=== PATIENT | female | born 1960 | race Caucasian/White ===

== ENCOUNTER 2022-03-02 19:33 | Inpatient (IN) | payer OTHER, SELFPAY ==
[2022-03-02] VITALS (8 sets, daily range): BP systolic 108–139; BP diastolic 60–88; PULSE 65–68; RESP 12–26; TEMP 36.5; O2SAT 90–95
--- NOTE | 2022-03-02 20:12 | CRLHL7_ITS ---
For Patients: As a result of the Cures Act, medical imaging exams and procedure reports are released immediately into your electronic medical record. You may view this report before your referring provider. If you have questions, please contact your health care provider. INDICATION: Shortness of breath. Patient uncooperative. COMPARISON: Portable chest from 01/13/2022. FINDINGS: PA and lateral views of the chest were obtained. The lungs remain clear. No focal or diffuse infiltrates are present. The heart remains mildly enlarged. Again seen are sternal wires from median sternotomy. The mediastinum is otherwise normal in appearance. Again seen is a metallic plate and anchoring screws from anterior cervical fusion. Again seen is an old, healed fracture of the posterior-lateral left 7th rib. IMPRESSION: No active disease seen in the chest. Heart remains mildly enlarged. Dictated by Aston Mart MD @ 03/02/2022 9:12:41 PM (Electronically Signed)
--- NOTE | 2022-03-02 20:16 | ED.GENADULT ---
HPI - General Adult General Chief complaint: Shortness of Breath/Dyspnea Stated complaint: Short of Breath Time Seen by Provider: 03/02/22 19:55 History of Present Illness HPI narrative: Patient is a 62-year-old female coming in today stating that she does not feel good. Patient has a very complex medical history That include COPD, depression and anxiety with panic attacks, chronic pain, coronary artery disease with a history of a cath in 2019 and 2021 as well as a history of CABG, hyperlipidemia, hypothyroidism, type 2 diabetes, PTSD.She states that she had a shoulder injection yesterday and now she has increased shoulder pain. She denies any fevers or chills. I did review her ER triage note prior to talking to her, and stated that she was here for shortness of breath. When I mentioned this to her she says 0h yeah and that too. she states that she is coughing, however this is chronic for her and is not new or unchanged. She states that she did feel better after an albuterol inhaler. She states that she is on chronic oxygen at home. She states that she does use a CPAP at night. She denies any nausea or vomiting. States that her appetite has been slightly less than normal. She denies any abdominal discomfort or chest pain. She denies any diarrhea or urinary symptoms such as increased urgency, dysuria or frequency. Patient states that she does live alone. This all started yesterday. She denies a sore throat. She denies difficulty breathing when lying down. She denies increased swelling of her extremities. Related Data Home Medications Medication Instructions Recorded Confirmed Home Oxygen 03/02/22 03/02/22 albuterol sulfate 90 mcg/actuation 2 puff INHALATION .Q4H PRN 03/02/22 03/02/22 aerosol inhaler alprazolam 0.5 mg tablet (Xanax) 0.5 mg PO BID 03/02/22 03/02/22 aspirin 81 mg chewable tablet 81 mg PO DAILY 03/02/22 03/02/22 budesonide-formoterol HFA 160 2 inh INHALATION BID 03/02/22 03/02/22 mcg-4.5 mcg/actuation aerosol inhaler buprenorphine HCl 2 mg sublingual 2 mg SUBLINGUAL BID 03/02/22 03/02/22 tablet clopidogrel 75 mg tablet (Plavix) 75 mg PO DAILY 03/02/22 03/02/22 escitalopram oxalate 10 mg tablet 10 mg PO DAILY 03/02/22 03/02/22 escitalopram oxalate 20 mg tablet 20 mg PO DAILY 03/02/22 03/02/22 esomeprazole magnesium 40 mg 40 mg PO DAILY 03/02/22 03/02/22 capsule,delayed release (Nexium) ezetimibe 10 mg tablet (Zetia) 10 mg PO DAILY 03/02/22 03/02/22 glimepiride 1 mg tablet 2 mg PO BID 03/02/22 03/02/22 ipratropium 0.5 mg-albuterol 3 mg 3 ml INHALATION Q6-8H PRN 03/02/22 03/02/22 (2.5 mg base)/3 mL nebulization soln isosorbide mononitrate 60 mg 120 mg PO DAILY 03/02/22 03/02/22 tablet,extended release 24 hr levothyroxine 50 mcg tablet 50 mcg PO DAILY 03/02/22 03/02/22 (Synthroid) magnesium oxide 400 mg PO DAILY 03/02/22 03/02/22 meclizine 25 mg tablet 25 mg PO .TID PRN 03/02/22 03/02/22 methocarbamol 500 mg tablet 1,000 mg PO .QHS 03/02/22 03/02/22 metoprolol succinate 50 mg 50 mg PO DAILY 03/02/22 03/02/22 tablet,extended release 24 hr mirtazapine 15 mg tablet 7.5 mg PO .QHS 03/02/22 03/02/22 morphine 15 mg tablet,extended 15 mg PO PRN 03/02/22 03/02/22 release naloxone 4 mg/actuation nasal spray 4 mg INTRANASAL Q2-3M PRN 03/02/22 03/02/22 nitroglycerin 0.4 mg sublingual 0.4 mg SUBLINGUAL Q5M 03/02/22 03/02/22 tablet (Nitrostat) ondansetron HCl 4 mg tablet 4 mg PO Q6-8H PRN 03/02/22 03/02/22 oxycodone-acetaminophen 7.5 mg-325 1 tab PO TID 03/02/22 03/02/22 mg tablet potassium chloride 20 mEq 40 meq PO DAILY 03/02/22 03/02/22 tablet,extended release(part/cryst) prazosin 2 mg capsule 4 mg PO .QHS 03/02/22 03/02/22 rosuvastatin 20 mg tablet (Crestor) 20 mg PO DAILY 03/02/22 03/02/22 sennosides 8.6 mg-docusate sodium 1 tab-cap PO BID 03/02/22 03/02/22 50 mg tablet sertraline 100 mg tablet 50 mg PO DAILY 03/02/22 03/02/22 sodium chloride 0.65 % nasal spray 2 spray INTRANASAL Q2H PRN 03/02/22 03/02/22 aerosol (Nasal [place] (sodium chloride)) tiotropium bromide 18 mcg capsule 1 cap INHALATION DAILY 03/02/22 03/02/22 with inhalation device (Spiriva with HandiHaler) torsemide 20 mg tablet 20 mg PO BID-TID 03/02/22 03/02/22 Previous Rx's Medication Instructions Recorded Lasix 20 mg tablet (furosemide) 10 mg PO QAM #1 tab NS 03/02/22 Allergies Allergy/AdvReac Type Severity Reaction Status Date / Time buprenorphine Allergy Severe respiratory Verified 03/02/22 20:58 distress sumatriptan Allergy Severe Anaphylaxis Verified 03/02/22 20:58 buspirone Allergy Intermediate Rash Verified 03/02/22 20:58 gabapentin Allergy Intermediate gi upset Verified 03/02/22 20:58 niacin Allergy Intermediate Verified 03/02/22 20:58 trazodone Allergy Intermediate Verified 03/02/22 20:58 atorvastatin Allergy Mild myalgia Verified 03/02/22 20:58 codeine Allergy Mild itching Verified 03/02/22 20:58 rizatriptan Allergy Mild Flushing Verified 03/02/22 20:58 Review of Systems Narrative: Entire review of systems was done was negative except for those things mentioned in the HPI. [facility] Medical History (Updated 03/02/22 @ 22:53 by Isabela Stout MD) Acute and chronic respiratory failure ([id number]) Acute on chronic heart failure with preserved ejection fraction Allergic rhinitis due to pollen Anxiety Arthropathy of spinal facet joint Asthma CAD (coronary artery disease) Chest pain Chronic pain syndrome Cluster B personality disorder CO2 retention COPD (chronic obstructive pulmonary disease) Edema GERD (gastroesophageal reflux disease) Graves disease History of nicotine dependence Hyperlipidemia Hypothyroidism Insomnia Leukocytosis Lumbar spinal stenosis Opioid dependence [place] (obstructive sleep apnea) Panic disorder PTSD (post-traumatic stress disorder) Recurrent major depression Refractory migraine Secondary polycythemia Type 2 diabetes mellitus with circulatory disorder, without long-term current use of insulin Surgical History (Updated 03/02/22 @ 20:53 by Sylvia Carlisle RN) Failed CABG (coronary artery bypass graft) H/O heart artery stent Social History Smoking Status: Former smoker What tobacco products do you use: cigarettes Smoking quit date/years: <= 15 years ago Do you use any of these nicotine containing products: None Second hand tobacco smoke exposure: No How often do you have a drink containing alcohol: never How often do you have six or more drinks on one occasion: Never AUDIT-C Alcohol total score: 0 Non-prescribed substance use: denies use Exam Narrative: Exam Narrative: Well-nourished well-developed patient in no acute distress. patient is somewhat disheveled. Alert and oriented. Answers questions appropriately. Flat affect. Thoughts are goal oriented and rational. No tangential or magical thinking noted. HEENT: Normocephalic atraumatic. Pupils are equally round reactive to light. Extraocular muscles are intact. Conjunctivae are moist without any icterus noted. Slightly dry mucous membranes. Posterior pharynx is normal. Neck is soft without any lymphadenopathy or thyromegaly. No masses are appreciated. Cardiovascular: Heart is regular rate and rhythm S1 and S2 are present without any murmurs. Lungs: decreased breath sounds bilaterally. She has end expiratory crackles bilaterally. She has expiratory wheezing bilaterally. has a prolonged expiratory phase. Abdomen: Soft and nontender nondistended with normal bowel sounds. Extremities: Bilateral lower extremities Have 1+ pitting edema. Normal DP and PT pulses. Skin: Well perfused without any obvious rashes. Const: Vital Signs, click to edit/add: Vital Signs - 24 hr 03/02/22 19:35 03/02/22 19:40 03/02/22 20:00 Temperature 97.7 F Pulse Rate [Right Pulse Oximeter] 67 Respiratory Rate 26 H 16 Blood Pressure [Le ft Upper Arm] 108/88 108/88 Pulse Oximetry 95 90 03/02/22 21:00 03/02/22 21:23 Temperature Pulse Rate [Right Pulse Oximeter] 65 Respiratory Rate 16 13 Blood Pressure [Le ft Upper Arm] 126/69 Pulse Oximetry 92 91 Course Course Hospital Course: Patient was feeling better after her DuoNeb. We were able to wean her oxygen down to 2 L nasal cannula where she remained at 90-93%. She continued to have shoulder pain as well as a headache that developed while she was here, she stated that there was nothing really new about the headache she was having. Her lab work did show a slightly elevated white cell count, an elevated BNP, slight hyponatremia and hyperkalemia. Because of this we did go ahead and give her 20 mg of Lasix as she did not appear to be dehydrated and given the increased swelling of her legs did in fact appear to be slightly fluid overloaded. Her vital signs improved with her blood pressure increasing to into the 120s systolic and her respiratory rate came down to 13. Vital Signs Vital signs: Initial Vital Signs Blood Pressure 108/88 03/02/22 19:35 Blood Pressure Mean 94 03/02/22 19:35 Blood Pressure Position Supine 03/02/22 19:35 Vital Signs Blood Pressure 108/88 03/02/22 19:35 Temperature 97.7 F 03/02/22 19:40 Pulse Rate 65 03/02/22 21:00 Respiratory Rate 13 03/02/22 21:23 Blood Pressure 126/69 03/02/22 21:00 Pulse Oximetry 91 03/02/22 21:23 Medical Decision Making Lab Data Labs: Lab Results 03/02/22 03/02/22 03/02/22 Range/Units 20:21 20:34 20:34 WBC 12.75 H (4.50-11.00) K/uL RBC 4.05 (4.00-5.20) m/uL Hgb 12.5 (12.0-16.0) gm/dL Hct 40.1 (33.0-51.0) % MCV 99 (80-100) fL MCH 31 (26-34) pg MCHC 31 L (32-36) gm/dL RDW Coeff of Renetta 13.8 (11.5-15.5) % Plt Count 276 (140-440) K/uL Neut % (Auto) 82.3 H (42.0-72.0) % Lymph % (Auto) 8.4 L (20-44) % [place] % (Auto) 8.1 (0.0-11.0) % Eos % (Auto) 0.1 (0.0-7.0) % Baso % (Auto) 0.2 (0.0-3.0) % Neut # (Auto) 10.50 H (1.7-7.0) K/uL Lymph # (Auto) 1.10 (0.90-2.90) K/uL [place] # (Auto) 1.00 H (0.00-0.90) K/UL Eos # (Auto) 0.00 (0.00-0.50) K/uL Baso # (Auto) 0.00 (0.00-0.30) K/uL Abs Immat Gran (auto) 0.11 (0.00-0.30) K/uL Sodium 130 L (135-149) mmol/L Potassium 5.4 H (3.6-5.1) mmol/L Chloride 90 L (96-114) mmol/L Carbon Dioxide 39 H (20-32) mmol/L BUN 15 (7-30) mg/dL Creatinine 0.6 (0.5-1.5) mg/dL Glucose 278 H (60-115) mg/dL Calcium 9.1 (8.4-10.6) mg/dL Total Bilirubin 0.4 (0.1-1.5) mg/dL Direct Bilirubin 0.4 (0.0-0.5) mg/dL AST 82 H (12-35) U/L ALT 45 H (4-35) U/L Alkaline Phosphatase 114 (40-150) U/L C-Reactive Protein 2.0 H (0.5-1.0) mg/dL NT-Pro-B Natriuret Pep 4050 H (0-125) PG/mL Total Protein 6.9 (6.0-8.3) g/dL Albumin 4.0 (3.3-5.0) g/dL Urine Color (Yellow) Urine Appearance (Clear) Urine pH (5.0-8.5) Ur Specific [place] (1.000-1.030) Urine Protein (Negative) Urine Glucose (UA) (Negative) Urine Ketones (Negative) Urine Blood (Negative) Urine Nitrite (Negative) Urine Bilirubin (Negative) Urine Urobilinogen (0.2-1.0) Ur Leukocyte Esterase (Negative) Urine RBC (0-2) Urine WBC (0-5) Ur Squamous Epith Cells (None-Few) Urine Bacteria (None) POC Troponin I 0.00 L (0.01-0.04) ng/ml 03/02/22 Range/Units 21:32 WBC (4.50-11.00) K/uL RBC (4.00-5.20) m/uL Hgb (12.0-16.0) gm/dL Hct (33.0-51.0) % MCV (80-100) fL MCH (26-34) pg MCHC (32-36) gm/dL RDW Coeff of Renetta (11.5-15.5) % Plt Count (140-440) K/uL Neut % (Auto) (42.0-72.0) % Lymph % (Auto) (20-44) % [place] % (Auto) (0.0-11.0) % Eos % (Auto) (0.0-7.0) % Baso % (Auto) (0.0-3.0) % Neut # (Auto) (1.7-7.0) K/uL Lymph # (Auto) (0.90-2.90) K/uL [place] # (Auto) (0.00-0.90) K/UL Eos # (Auto) (0.00-0.50) K/uL Baso # (Auto) (0.00-0.30) K/uL Abs Immat Gran (auto) (0.00-0.30) K/uL Sodium (135-149) mmol/L Potassium (3.6-5.1) mmol/L Chloride (96-114) mmol/L Carbon Dioxide (20-32) mmol/L BUN (7-30) mg/dL Creatinine (0.5-1.5) mg/dL Glucose (60-115) mg/dL Calcium (8.4-10.6) mg/dL Total Bilirubin (0.1-1.5) mg/dL Direct Bilirubin (0.0-0.5) mg/dL AST (12-35) U/L ALT (4-35) U/L Alkaline Phosphatase (40-150) U/L C-Reactive Protein (0.5-1.0) mg/dL NT-Pro-B Natriuret Pep (0-125) PG/mL Total Protein (6.0-8.3) g/dL Albumin (3.3-5.0) g/dL Urine Color Yellow (Yellow) Urine Appearance Clear (Clear) Urine pH 6.0 (5.0-8.5) Ur Specific [place] 1.010 (1.000-1.030) Urine Protein Negative (Negative) Urine Glucose (UA) 2+ A (Negative) Urine Ketones Negative (Negative) Urine Blood Negative (Negative) Urine Nitrite Negative (Negative) Urine Bilirubin Negative (Negative) Urine Urobilinogen 0.2 (0.2-1.0) Ur Leukocyte Esterase Negative (Negative) Urine RBC 0-2 (0-2) Urine WBC 2-5 (0-5) Ur Squamous Epith Cells Few (None-Few) Urine Bacteria None (None) POC Troponin I (0.01-0.04) ng/ml Imaging Data Chest x-ray: Attestation: I have reviewed the pertinent imaging results. My impression: Normal chest x-ray Radiologist's impression: No acute findings ECG Data Attestation: I personally reviewed and interpreted this ECG as follows: (Normal sinus rhythm) Discharge Plan Discharge Clinical Impression: Chronic pain, Congestive heart failure Condition: Improved Additional Instructions: Take a 1/2 of a Lasix tablet for the next 2 days. Follow-up with your primary care provider this coming week. Return to the ER if you feel increasing shortness of breath, weakness or you develop a fever. Prescriptions: New furosemide [Lasix] 20 mg tablet 10 mg PO QAM Qty: 1 0RF No Action albuterol sulfate 90 mcg/actuation HFA aerosol inhaler 2 puff INHALATION .Q4H PRN 0RF ipratropium-albuterol 0.5 mg-3 mg(2.5 mg base)/3 mL solution for nebulization 3 ml inhalation Q6-8H PRN0RF aspirin 81 mg tablet,chewable 81 mg PO DAILY 0RF naloxone 4 mg/actuation spray,non-aerosol 4 mg intranasal Q2-3M PRN0RF Rx Instructions: spray 1 dose into ONE nostril; alternate nostrils w each dose until help arrives sennosides-docusate sodium 8.6-50 mg tablet 1 tab-cap PO BID 0RF levothyroxine [Synthroid] 50 mcg tablet 50 mcg PO DAILY 0RF rosuvastatin [Crestor] 20 mg tablet 20 mg PO DAILY 0RF oxycodone-acetaminophen 7.5-325 mg tablet 1 tab PO TID 0RF clopidogrel [Plavix] 75 mg tablet 75 mg PO DAILY 0RF budesonide-formoterol 160-4.5 mcg/actuation HFA aerosol inhaler 2 inh inhalation BID 0RF nitroglycerin [Nitrostat] 0.4 mg tablet, sublingual 0.4 mg sublingual Q5M 0RF Rx Instructions: do not exceed 3 doses per episode Spiriva with HandiHaler 18 mcg capsule, w/inhalation device 1 cap INHALATION DAILY 0RF esomeprazole magnesium [Nexium] 40 mg capsule,delayed release(DR/EC) 40 mg PO DAILY 0RF ezetimibe [Zetia] 10 mg tablet 10 mg PO DAILY 0RF methocarbamol 500 mg tablet 1,000 mg PO .QHS 0RF glimepiride 1 mg tablet 2 mg PO BID 0RF isosorbide mononitrate 60 mg tablet extended release 24 hr 120 mg PO DAILY 0RF magnesium oxide 400 mg magnesium capsule 400 mg PO DAILY 0RF potassium chloride 20 mEq tablet,ER particles/crystals 40 meq PO DAILY 0RF Nasal [place] (sodium chloride) 0.65 % aerosol,spray 2 spray intranasal Q2H PRN0RF (DME) Home Oxygen Misc See Rx Instructions .ROUTE 0RF Rx Instructions: As directed meclizine 25 mg tablet 25 mg PO .TID PRN 0RF metoprolol succinate 50 mg tablet extended release 24 hr 50 mg PO DAILY 0RF torsemide 20 mg tablet 20 mg PO BID-TID 0RF ondansetron HCl 4 mg tablet 4 mg PO Q6-8H PRN0RF buprenorphine HCl 2 mg tablet, sublingual 2 mg SUBLINGUAL BID 0RF mirtazapine 15 mg tablet 7.5 mg PO .QHS 0RF prazosin 2 mg capsule 4 mg PO .QHS 0RF sertraline 100 mg tablet 50 mg PO DAILY 0RF Rx Instructions: Week 1: 100mg daily, Week 2: 50mg Daily, Week 3: stop Rx ordered 02/01/22 alprazolam [Xanax] 0.5 mg tablet 0.5 mg PO BID 0RF escitalopram oxalate 10 mg tablet 10 mg PO DAILY 0RF escitalopram oxalate 20 mg tablet 20 mg PO DAILY 0RF morphine 15 mg tablet extended release 15 mg PO PRN 0RF Follow Up/Referrals: Moreno Dill MD [Primary Care Provider] - Stand Alone Forms: [employer] Info Instructions
[2022-03-02] MEDS: IPRAT-ALBUT 0.5-2.5 MG/3 ML NEB 1 NEB IH (20:28)
[2022-03-02 20:45] LABS: Basophils Percent Auto 0.2 % (0.0-3.0); Eosinophils Percent Auto 0.1 % (0.0-7.0); Hematocrit 40.1 % (33.0-51.0); Hemoglobin* 12.5 gm/dL (12.0-16.0); Immature Granulocytes Abs Auto 0.11 K/uL (0.00-0.30); Lymphocytes Percent Auto 8.4 % (20-44); Mean Corpuscular HGB Conc 31 gm/dL (32-36); Mean Corpuscular Hemoglobin 31 pg (26-34); Mean Corpuscular Volume 99 fL (80-100); Monocytes Percent Auto 8.1 % (0.0-11.0); Neutrophils Percent Auto 82.3 % (42.0-72.0); Platelet Count* 276 K/uL (140-440); RDW Coefficient of Variation % 13.8 % (11.5-15.5); Red Blood Count 4.05 m/uL (4.00-5.20); White Blood Count* 12.75 K/uL (4.50-11.00)
[2022-03-02 21:02] LABS: Chloride* 90 mmol/L (96-114); Sodium* 130 mmol/L (135-149)
[2022-03-02 21:03] LABS: Potassium* 5.4 mmol/L (3.6-5.1); Slide Review Reflex No
[2022-03-02 21:04] LABS: Creatinine* 0.6 mg/dL (0.5-1.5)
[2022-03-02 21:05] LABS: Alanine Aminotransferase* 45 U/L (4-35); Alkaline Phosphatase* 114 U/L (40-150); Aspartate Amino Transferase* 82 U/L (12-35); Bilirubin Direct* 0.4 mg/dL (0.0-0.5); Bilirubin Total* 0.4 mg/dL (0.1-1.5); Blood Urea Nitrogen* 15 mg/dL (7-30); Calcium* 9.1 mg/dL (8.4-10.6); Carbon Dioxide* 39 mmol/L (20-32); Glucose* 278 mg/dL (60-115); Total Protein* 6.9 g/dL (6.0-8.3)
[2022-03-02 21:14] LABS: NT Pro B Type NatriureticPept* 4050 PG/mL (0-125)
[2022-03-02] MEDS: FUROSEMIDE 10 MG/ML inj 20 MG IV (21:47)
--- NOTE | 2022-03-02 22:13 | PC.NURSE ---
Patient voided 800mL of urine on bedside commode. UA sent to lab.
[2022-03-02 22:21] LABS: Appearance Urine Clear (Clear); Bilirubin Urine Negative (Negative); Blood Urine Negative (Negative); Color Urine Yellow (Yellow); Glucose Urine 2+ (Negative); Ketones Urine Negative (Negative); Leukocyte Esterase Urine Negative (Negative); Nitrite Urine Negative (Negative); Protein Urine Negative (Negative); Urobilinogen Urine 0.2 (0.2-1.0)
[2022-03-02 22:33] LABS: RBC Urine 0-2 (0-2); Squamous Epithelial Cell Urine Few (None-Few)
--- NOTE | 2022-03-02 23:19 | PC.NURSE ---
Patient found in room without supplemental O2 on and pulled off monitors. Patient also had incontinent void of urine on floor.
--- NOTE | 2022-03-02 23:32 | P.IMHP_ITS ---
Hospitalist- H&P: HPI History of Present Illness Time Seen by Provider: 23:31 Date Seen: 03/03/22 Chief complaint: Short of Breath Narrative: Meg Monahan is a 62 year old female who presents the emergency room with progressive dyspnea over the last day. Patient is observed to be somewhat sedated and has trouble giving much detail to her history. She reports no chest pain, fever, respiratory illness. She does have right shoulder pain which has been longstanding. She has had recent evaluation and possibly recent shoulder injection. patient has longstanding respiratory problems including COPD, Coronary artery disease, heart failure preserved ejection fraction, sleep apnea, history of hypoxic and hypercarbic respiratory failure. Her opioid dependence, benzodiazepine dependence all put her at risk for respiratory failure. She was hospitalized here in December with similar presentation. At that time she had COVID. Review of Systems Narrative: patient denies any other problems other than her right shoulder pain and breathing problems. She denies other respiratory illness symptoms except for chronic cough. She denies cardiovascular symptoms including chest pain. She denies GI problems including nausea, vomiting, diarrhea, constipation, bleeding. She has had no history of blood clotting problems. [facility] Medical History Acute and chronic respiratory failure ([id number]) Acute on chronic heart failure with preserved ejection fraction Allergic rhinitis due to pollen Anxiety Arthropathy of spinal facet joint Asthma CAD (coronary artery disease) Chest pain Chronic pain syndrome Cluster B personality disorder CO2 retention COPD (chronic obstructive pulmonary disease) Edema GERD (gastroesophageal reflux disease) Graves disease History of nicotine dependence Hyperlipidemia Hypothyroidism Insomnia Leukocytosis Lumbar spinal stenosis Opioid dependence [place] (obstructive sleep apnea) Panic disorder PTSD (post-traumatic stress disorder) Recurrent major depression Refractory migraine Respiratory failure Secondary polycythemia Type 2 diabetes mellitus with circulatory disorder, without long-term current use of insulin Surgical History Failed CABG (coronary artery bypass graft) H/O heart artery stent Social History (Updated 03/03/22 @ 00:20 by Jamey Floyd MD) Narrative: Patient lives alone in [place]. Former smoker. No longer smoking. She does not drink alcohol. Her healthcare power of prosecuting attorney is her future [id number], [place]. code status is DNR. Highest level of school completed/degree received: some college, no degree Smoking Status: Former smoker What tobacco products do you use: cigarettes Smoking quit date/years: <= 15 years ago Do you use any of these nicotine containing products: None Second hand tobacco smoke exposure: No How often do you have a drink containing alcohol: never How often do you have six or more drinks on one occasion: Never AUDIT-C Alcohol total score: 0 Non-prescribed substance use: denies use Caffeine: Yes service: No Meds Home Medications and Allergies Home Medications Medication Instructions Recorded Confirmed Type Home Oxygen 03/02/22 03/02/22 History albuterol sulfate 90 mcg/actuation 2 puff INHALATION .Q4H PRN 03/02/22 03/02/22 History aerosol inhaler alprazolam 0.5 mg tablet (Xanax) 0.5 mg PO BID 03/02/22 03/02/22 History aspirin 81 mg chewable tablet 81 mg PO DAILY 03/02/22 03/02/22 History budesonide-formoterol HFA 160 2 inh INHALATION BID 03/02/22 03/02/22 History mcg-4.5 mcg/actuation aerosol inhaler buprenorphine HCl 2 mg sublingual 2 mg SUBLINGUAL BID 03/02/22 03/02/22 History tablet clopidogrel 75 mg tablet (Plavix) 75 mg PO DAILY 03/02/22 03/02/22 History escitalopram oxalate 10 mg tablet 10 mg PO DAILY 03/02/22 03/02/22 History escitalopram oxalate 20 mg tablet 20 mg PO DAILY 03/02/22 03/02/22 History esomeprazole magnesium 40 mg 40 mg PO DAILY 03/02/22 03/02/22 History capsule,delayed release (Nexium) ezetimibe 10 mg tablet (Zetia) 10 mg PO DAILY 03/02/22 03/02/22 History glimepiride 1 mg tablet 2 mg PO BID 03/02/22 03/02/22 History ipratropium 0.5 mg-albuterol 3 mg 3 ml INHALATION Q6-8H PRN 03/02/22 03/02/22 H istory (2.5 mg base)/3 mL nebulization soln isosorbide mononitrate 60 mg 120 mg PO DAILY 03/02/22 03/02/22 History tablet,extended release 24 hr levothyroxine 50 mcg tablet 50 mcg PO DAILY 03/02/22 03/02/22 History (Synthroid) magnesium oxide 400 mg PO DAILY 03/02/22 03/02/22 History meclizine 25 mg tablet 25 mg PO .TID PRN 03/02/22 03/02/22 History methocarbamol 500 mg tablet 1,000 mg PO .QHS 03/02/22 03/02/22 History metoprolol succinate 50 mg 50 mg PO DAILY 03/02/22 03/02/22 History tablet,extended release 24 hr mirtazapine 15 mg tablet 7.5 mg PO .QHS 03/02/22 03/02/22 History morphine 15 mg tablet,extended 15 mg PO PRN 03/02/22 03/02/22 History release naloxone 4 mg/actuation nasal spray 4 mg INTRANASAL Q2-3M PRN 03/02/22 03/02/22 History nitroglycerin 0.4 mg sublingual 0.4 mg SUBLINGUAL Q5M 03/02/22 03/02/22 History tablet (Nitrostat) ondansetron HCl 4 mg tablet 4 mg PO Q6-8H PRN 03/02/22 03/02/22 History oxycodone-acetaminophen 7.5 mg-325 1 tab PO TID 03/02/22 03/02/22 History mg tablet potassium chloride 20 mEq 40 meq PO DAILY 03/02/22 03/02/22 History tablet,extended release(part/cryst) prazosin 2 mg capsule 4 mg PO .QHS 03/02/22 03/02/22 History rosuvastatin 20 mg tablet (Crestor) 20 mg PO DAILY 03/02/22 03/02/22 History sennosides 8.6 mg-docusate sodium 1 tab-cap PO BID 03/02/22 03/02/22 History 50 mg tablet sertraline 100 mg tablet 50 mg PO DAILY 03/02/22 03/02/22 History sodium chloride 0.65 % nasal spray 2 spray INTRANASAL Q2H PRN 03/02/22 03/02/22 History aerosol (Nasal Volcano (sodium chloride)) tiotropium bromide 18 mcg capsule 1 cap INHALATION DAILY 03/02/22 03/02/22 History with inhalation device (Spiriva with HandiHaler) torsemide 20 mg tablet 20 mg PO BID-TID 03/02/22 03/02/22 History Home Medication Comments: Patient is unable to name her medications. When I name her medications she is unable to tell me how often she takes them. Allergies Allergy/AdvReac Type Severity Reaction Status Date / Time buprenorphine Allergy Severe respiratory Verified 03/02/22 20:58 distress sumatriptan Allergy Severe Anaphylaxis Verified 03/02/22 20:58 buspirone Allergy Intermediate Rash Verified 03/02/22 20:58 gabapentin Allergy Intermediate gi upset Verified 03/02/22 20:58 niacin Allergy Intermediate Verified 03/02/22 20:58 trazodone Allergy Intermediate Verified 03/02/22 20:58 atorvastatin Allergy Mild myalgia Verified 03/02/22 20:58 codeine Allergy Mild itching Verified 03/02/22 20:58 rizatriptan Allergy Mild Flushing Verified 03/02/22 20:58 Exam Narrative: Exam Narrative: She is awake but drowsy. She is oriented to her place and circumstances. unable to give significant detailed history. Head is normal. Eyes normal. O ropharynx is normal. No facial asymmetry. Neck is supple without mass or adenopathy. Respirations with diffusely diminished breath sounds. Expiratory wheezing is also heard diffusely. prolonged expiratory phase. Cardiovascular: S1, S2, regular rate and rhythm. Abdomen: Bowel sounds active. Abdomen is soft without tenderness. No mass. Extremities without edema. Good peripheral pulses. She moves all 4 extremities well. No rash. Const: Vital Signs, click to edit/add: Vital Signs - 24 hr 03/02/22 19:35 03/02/22 19:40 03/02/22 20:00 Temperature 97.7 F Pulse Rate [Right Pulse Oximeter] 67 Respiratory Rate 26 H 16 Blood Pressure [Le ft Upper Arm] 108/88 108/88 Pulse Oximetry 95 90 03/02/22 21:00 03/02/22 21:23 Temperature Pulse Rate [Right Pulse Oximeter] 65 Respiratory Rate 16 13 Blood Pressure [Le ft Upper Arm] 126/69 Pulse Oximetry 92 91 Documenting provider has reviewed patient's vital signs: yes Hospitalist - H&P: Result Labs Labs: Short CBC 03/02/22 Range/Units 20:34 WBC 12.75 H (4.50-11.00) K/uL Hgb 12.5 (12.0-16.0) gm/dL Hct 40.1 (33.0-51.0) % Plt Count 276 (140-440) K/uL BMP 03/02/22 20:34 Sodium 130 L Potassium 5.4 H Chloride 90 L Carbon Dioxide 39 H BUN 15 Creatinine 0.6 Glucose 278 H Calcium 9.1 Liver Function 03/02/22 Range/Units 20:34 Total Bilirubin 0.4 (0.1-1.5) mg/dL Direct Bilirubin 0.4 (0.0-0.5) mg/dL AST 82 H (12-35) U/L ALT 45 H (4-35) U/L Alkaline Phosphatase 114 (40-150) U/L Albumin 4.0 (3.3-5.0) g/dL Urine 03/02/22 Range/Units 21:32 Urine Color Yellow (Yellow) Urine Appearance Clear (Clear) Urine pH 6.0 (5.0-8.5) Ur Specific [place] 1.010 (1.000-1.030) Urine Protein Negative (Negative) Urine Glucose (UA) 2+ A (Negative) Assessment and Plan Assessment and plan (1) Respiratory failure: Problem comment: Status: Acute Assessment and Plan: hypoxic and hypercarbic respiratory failure in the context of COPD exacerbation and probable heart failure as well as opioid and benzodiazepine use and uncertain use of home CPAP. Will place her on BiPAP now to help with her CO2 retention in oxygenation. Treat her for COPD with steroids and inhaled bronchodilators. Try to taper down opioids and benzodiazepines (2) CO2 retention: Status: Acute (3) COPD (chronic obstructive pulmonary disease): Status: Acute (4) Chronic narcotic use: Status: Acute (5) Acute confusion: Status: Acute
[2022-03-02 23:36] LABS: HCO3 VBG 43 mmol/L (21-28); pH VBG 7.403 (7.32-7.43)
--- NOTE | 2022-03-02 23:40 | PC.NURSE ---
Report to m/s RN. Ok to bring to floor once Dr. Floyd done seeing patient.
--- NOTE | 2022-03-02 23:45 | PC.NURSE ---
Lab with critical pCO2 of 70, Dr. Floyd notified.
[2022-03-02 23:46] LABS: PCO2 VBG 70 mmHG (40-50); PO2 VBG < 25.0 mmHG (25-47)
[2022-03-03] VITALS (16 sets, daily range): BP systolic 107–146; BP diastolic 50–76; PULSE 67–76; RESP 14–18; TEMP 35.4–36.8; O2SAT 88–94; BMI 29.1
[2022-03-03] LABS: D Dimer Quantitative* 0.75 ug/ml (0.00-0.50)
[2022-03-03 00:12] LABS: Troponin I* 0.02 ng/mL (0.01-0.04)
[2022-03-03 00:40] LABS: SARS Antigen* Negative (Negative)
[2022-03-03] MEDS: ENOXAPARIN 40 MG/0.4 ML INJ SUBCUT (01:34)
[2022-03-03] MEDS: IPRAT-ALBUT 0.5-2.5 MG/3 ML NEB 1 NEB IH ×4 (01:34→19:14)
[2022-03-03] MEDS: TORSEMIDE 20 MG TABLET PO ×3 (01:38→20:45)
[2022-03-03] MEDS: predniSONE 20 MG TABLET 60 MG PO ×2 (01:49→08:37)
[2022-03-03] MEDS: ONDANSETRON 2 MG/ML inj 4 MG IVP ×3 (02:34→21:43)
[2022-03-03] MEDS: OXYCODONE 5 MG TABLET PO ×4 (02:46→17:30)
--- NOTE | 2022-03-03 03:58 | PC.NURSE ---
Pt came to Floor Just after midnight. Placed on BiPap and maintaining O2 in the low 90s. Pt Desats into 70s on RA. Pt is Oriented x3 at times and then shows periods of confusion. During these periods she cries and asks to go home. Reports zero pain when oriented and severe pain when not. PRN pain 5mg Oxy given and relief shown. Pt Up SBA/IND and voiding. Pt felt nauseated during the night, Zofran given.
[2022-03-03] MEDS: ACETAMINOPHEN 325 MG TABLET 650 MG PO ×2 (08:35→19:12)
[2022-03-03] MEDS: ISOSORBIDE MONONITRATE ER 30 MG TAB 120 MG PO (08:38)
[2022-03-03] MEDS: ASPIRIN 81 MG TAB.CHEW PO (08:38)
[2022-03-03] MEDS: ESCITALOPRAM 10 MG TABLET PO (08:39)
[2022-03-03] MEDS: LEVOTHYROXINE 50 MCG TABLET PO (08:39)
[2022-03-03] MEDS: SENNOSIDES/DOCUSATE TABLET 2 TAB PO ×2 (08:39→20:45)
[2022-03-03] MEDS: ROSUVASTATIN CALCIUM 10 MG TABLET 20 MG PO (08:40)
[2022-03-03] MEDS: CLOPIDOGREL 75 MG TABLET PO (08:40)
[2022-03-03] MEDS: EZETIMIBE 10 MG TABLET PO (08:40)
[2022-03-03] MEDS: MAGNESIUM OXIDE 400 MG TABLET PO (08:41)
[2022-03-03] MEDS: SERTRALINE 100 MG TABLET 50 MG PO (08:41)
[2022-03-03] MEDS: METOPROLOL SUCCINATE (XL) 50 MG TAB PO (08:42)
[2022-03-03] MEDS: GLIMEPIRIDE 1 MG TABLET 2 MG PO ×2 (08:51→20:46)
[2022-03-03] MEDS: ESCITALOPRAM 10 MG TABLET 20 MG PO (08:51)
[2022-03-03] MEDS: ALPRAZolam 0.25 MG TABLET 0.5 MG PO ×2 (08:54→20:45)
--- NOTE | 2022-03-03 09:34 | RESP.RT ---
Patient continues on BiPAP; FiO2 28% adjusted to keep SaO2 >88%, IPAP 12, EPAP increased from 6 to 8 cm pressure, Rise changed from 2 to 1 to give breath faster, Ti 1.0 seconds, rate of 10, patients total rate 14/minute, alarms on and functioning. Patient was removed from BiPAP trial, SaO2 decreased to 73% in less than 5 minutes. Bilateral breath sounds with inspiratory coarse crackles noted all palacio, and expiratory musical wheeze noted all palacio. DuoNeb given at 08>30 hours with face mask, and Oxygen flow meter at 8 Lpm, patient tolerated well, HR remained stable at 70-74/minute. Bilateral breath sounds remain with increased musical wheeze with more air movement. Patient return to BiPAP post Nebulizer treatment. Patient has Home CPAP and uses Home Oxygen, stated she does not bleed in Oxygen to Home CPAP. Asked patient if someone could bring in her Home CPAP, she stated possible.
[2022-03-03] MEDS: SODIUM CHLORIDE 0.9 % (FLUSH) 10 ML SYRINGE 5 ML IVF ×2 (09:48→20:54)
--- NOTE | 2022-03-03 14:00 | PM.IMPN1 ---
Progress Note: A&P Assessment and plan (1) Hypoxia: Problem details: due to COPD exacerbation and hypoventilation from sleep apnea and opioid and benzodiazepine use Status: Acute (2) COPD (chronic obstructive pulmonary disease): Problem details: having a COPD exacerbation. Causing her respiratory failure along with comorbidities noted below. Continue inhaled bronchodilators and systemic corticosteroids Status: Acute (3) CO2 retention: Status: Acute (4) Respiratory failure: Problem details: not tolerating being off BiPAP at all overnight Status: Acute (5) Chronic pain: Status: Acute (6) Congestive heart failure: Status: Acute (7) Chronic narcotic use: Problem details: I have taken away Scheduled morphine and oxycodone. She is on a lower dose of oxycodone p.r.n.. Continue buprenorphine. Status: Acute (8) Acute confusion: Problem details: ongoing problem and concern. Initially thought to be due to hypoxia and hypercarbia. Unclear what role medications are playing. Status: Acute (9) Acute hyponatremia: Problem details: Continue to follow Status: Acute (10) Diabetes mellitus type 2 in obese: Problem details: elevated blood sugars probably due to systemic corticosteroids. Continue to monitor and sliding scale insulin Status: Acute Time Spent With Patient Total time spent: total time spent today is 50 minutes in critical care evaluation and management of hypoxic and hypercarbic respiratory failure with acute confusion Subjective Date Seen: 03/03/22 Interval history: patient slept fairly well on BiPAP. Nursing staff noted she was episodically confused and disoriented when she would awake. Sometimes trying to go home. She did not tolerate any periods of time off BiPAP without fairly rapid desaturation into the 70s. Has maintained O2 sats in the 90s on 25 to 30% FiO2. She is oriented to being in the hospital today but otherwise cannot tell me any details of recent events. Exam Narrative: Exam Narrative: She appears comfortable on BiPAP. Breathing appears unlabored. Oropharynx with small airway. Neck is supple without mass or adenopathy. No jugular venous distension. Respirations with diminished breath sounds, prolonged expiratory phase, diffuse expiratory wheezing. Mildly improved compared to yesterday. Cardiovascular: S1, S2, regular rate and rhythm. Abdomen: Bowel sounds active. Abdomen is soft without tenderness or mass. Extremities without tenderness or edema. intact peripheral pulses. Const: Vital Signs, click to edit/add: Vital Signs - 24 hr 03/02/22 19:35 03/02/22 19:40 03/02/22 20:00 Temperature 97.7 F Pulse Rate Pulse Rate [Right Pulse Oximeter] 67 Pulse Rate [Right Radial] Respiratory Rate 26 H 16 Blood Pressure [Le ft Arm] Blood Pressure [Le ft Upper Arm] 108/88 108/88 Pulse Oximetry 95 90 03/02/22 21:00 03/02/22 21:23 03/02/22 21:30 Temperature Pulse Rate Pulse Rate [Right Pulse Oximeter] 65 68 Pulse Rate [Right Radial] Respiratory Rate 16 13 12 Blood Pressure [Le ft Arm] Blood Pressure [Le ft Upper Arm] 126/69 123/64 Pulse Oximetry 92 91 90 03/02/22 22:00 03/02/22 22:30 03/03/22 00:17 Temperature 97.1 F L Pulse Rate Pulse Rate [Right Pulse Oximeter] 68 68 Pulse Rate [Right Radial] 67 Respiratory Rate 14 17 14 Blood Pressure [Le ft Arm] 132/59 L Blood Pressure [Le ft Upper Arm] 139/69 120/60 Pulse Oximetry 91 93 94 03/03/22 00:19 03/03/22 00:26 03/03/22 01:13 Temperature 97.1 F L Pulse Rate 71 Pulse Rate [Right Pulse Oximeter] Pulse Rate [Right Radial] 70 Respiratory Rate 14 Blood Pressure [Le ft Arm] 132/59 L Blood Pressure [Le ft Upper Arm] Pulse Oximetry 94 93 03/03/22 03:04 03/03/22 07:25 03/03/22 07:48 Temperature 98.3 F 96.1 F L Pulse Rate 69 Pulse Rate [Right Pulse Oximeter] Pulse Rate [Right Radial] 71 76 Respiratory Rate 16 14 Blood Pressure [Le ft Arm] 127/61 146/76 H Blood Pressure [Le ft Upper Arm] Pulse Oximetry 91 90 03/03/22 09:22 03/03/22 09:24 03/03/22 11:21 Temperature 96.1 F L Pulse Rate Pulse Rate [Right Pulse Oximeter] Pulse Rate [Right Radial] 67 Respiratory Rate 14 14 Blood Pressure [Le ft Arm] 125/68 Blood Pressure [Le ft Upper Arm] Pulse Oximetry 88 88 90 Documenting provider has reviewed patient's vital signs: yes Labs Labs: Laboratory Results - last 24 hr 03/02/22 03/02/22 03/02/22 20:21 20:34 20:34 WBC 12.75 H RBC 4.05 Hgb 12.5 Hct 40.1 MCV 99 MCH 31 MCHC 31 L RDW Coeff of [place]etta 13.8 Plt Count 276 Neut % (Auto) 82.3 H Lymph % (Auto) 8.4 L [place] % (Auto) 8.1 Eos % (Auto) 0.1 Baso % (Auto) 0.2 Neut # (Auto) 10.50 H Lymph # (Auto) 1.10 [place] # (Auto) 1.00 H Eos # (Auto) 0.00 Baso # (Auto) 0.00 Abs Immat Gran (auto) 0.11 D-Dimer Quant (PE/DVT) VBG pH VBG pCO2 VBG pO2 VBG HCO3 Sodium 130 L Potassium 5.4 H Chloride 90 L Carbon Dioxide 39 H BUN 15 Creatinine 0.6 Glucose 278 H Calcium 9.1 Total Bilirubin 0.4 Direct Bilirubin 0.4 AST 82 H ALT 45 H Alkaline Phosphatase 114 Troponin I C-Reactive Protein 2.0 H NT-Pro-B Natriuret Pep 4050 H Total Protein 6.9 Albumin 4.0 Urine Color Urine Appearance Urine pH Ur Specific [place] Urine Protein Urine Glucose (UA) Urine Ketones Urine Blood Urine Nitrite Urine Bilirubin Urine Urobilinogen Ur Leukocyte Esterase Urine RBC Urine WBC Ur Squamous Epith Cells Urine Bacteria SARS-CoV-2 Ag (Rapid) POC Troponin I 0.00 L 03/02/22 03/02/22 03/02/22 21:32 23:30 23:30 WBC RBC Hgb Hct MCV MCH MCHC RDW Coeff of [place] Plt Count Neut % (Auto) Lymph % (Auto) [place] % (Auto) Eos % (Auto) Baso % (Auto) Neut # (Auto) Lymph # (Auto) [place] # (Auto) Eos # (Auto) Baso # (Auto) Abs Immat Gran (auto) D-Dimer Quant (PE/DVT) 0.75 H VBG pH 7.403 VBG pCO2 70 H* VBG pO2 < 25.0 L VBG HCO3 43 H Sodium Potassium Chloride Carbon Dioxide BUN Creatinine Glucose Calcium Total Bilirubin Direct Bilirubin AST ALT Alkaline Phosphatase Troponin I C-Reactive Protein NT-Pro-B Natriuret Pep Total Protein Albumin Urine Color Yellow Urine Appearance Clear Urine pH 6.0 Ur Specific [place] 1.010 Urine Protein Negative Urine Glucose (UA) 2+ A Urine Ketones Negative Urine Blood Negative Urine Nitrite Negative Urine Bilirubin Negative Urine Urobilinogen 0.2 Ur Leukocyte Esterase Negative Urine RBC 0-2 Urine WBC 2-5 Ur Squamous Epith Cells Few Urine Bacteria None SARS-CoV-2 Ag (Rapid) POC Troponin I 03/02/22 03/03/22 23:30 00:10 WBC RBC Hgb Hct MCV MCH MCHC RDW Coeff of [place]etta Plt Count Neut % (Auto) Lymph % (Auto) [place] % (Auto) Eos % (Auto) Baso % (Auto) Neut # (Auto) Lymph # (Auto) [place] # (Auto) Eos # (Auto) Baso # (Auto) Abs Immat Gran (auto) D-Dimer Quant (PE/DVT) VBG pH VBG pCO2 VBG pO2 VBG HCO3 Sodium Potassium Chloride Carbon Dioxide BUN Creatinine Glucose Calcium Total Bilirubin Direct Bilirubin AST ALT Alkaline Phosphatase Troponin I 0.02 C-Reactive Protein NT-Pro-B Natriuret Pep Total Protein Albumin Urine Color Urine Appearance Urine pH Ur Specific [place] Urine Protein Urine Glucose (UA) Urine Ketones Urine Blood Urine Nitrite Urine Bilirubin Urine Urobilinogen Ur Leukocyte Esterase Urine RBC Urine WBC Ur Squamous Epith Cells Urine Bacteria SARS-CoV-2 Ag (Rapid) Negative POC Troponin I
--- NOTE | 2022-03-03 17:49 | PC.NURSE ---
End of shift-- Pt has been pleasant and cooperative, oriented x3 today. She was drowsy this morning, but was much more alert this afternoon. VSS and pt is afebrile. SPO2 initially dropped to 70s when bipap was removed, however, when patient was more alert this afternoon, pt was switched to nasal cannula and has been maintaining sats in the high 80s with 1.5-2L O2 for several hours. Pt c/o chronic pain in her right shoulder and neck which she rates from 6 to 8 continuously and was given Oxycodone q4h and stated partial relief. Telemetry shows NSR. High pitched wheezing auscultated throughout lung palacio this morning with coarse crackles in the bases. This afternoon lung sounds were greatly improved with rhonchi throughout. She also began having a moist, non-productive cough through the day. She was up to the BR with SBA and tolerated it fair. She c/o nausea after her morning meds today and was given Zofran with relief. She denied any other nausea, though appetite was fairly poor. She refused breakfast, ate bites of oatmeal for lunch and is currently picking at her dinner. BS+ x4, though hypoactive and pt stated a normal BM yesterday. Report to oncoming shift.
[2022-03-03] MEDS: PRAZOSIN HCL 1 MG CAPSULE 4 MG PO (20:47)
[2022-03-04] VITALS (14 sets, daily range): BP systolic 108–133; BP diastolic 63–75; PULSE 61–75; RESP 14–20; TEMP 35.7–36.6; O2SAT 88–91
[2022-03-04] MEDS: ENOXAPARIN 40 MG/0.4 ML INJ SUBCUT (00:35)
[2022-03-04] MEDS: IPRAT-ALBUT 0.5-2.5 MG/3 ML NEB 1 NEB IH ×4 (00:36→21:06)
[2022-03-04] MEDS: OXYCODONE 5 MG TABLET PO ×6 (02:10→23:04)
--- NOTE | 2022-03-04 05:35 | PC.NURSE ---
Pt improved from previous night. No confusion seen. Pain Controlled. On 2L NC all night with sats 88-92%.
[2022-03-04 07:15] LABS: HCO3 VBG 47 mmol/L (21-28); PO2 VBG 38.1 mmHG (25-47); pH VBG 7.414 (7.32-7.43)
[2022-03-04 07:18] LABS: PCO2 VBG 73 mmHG (40-50)
[2022-03-04 07:34] LABS: Basophils Percent Auto 0.2 % (0.0-3.0); Eosinophils Percent Auto 0.1 % (0.0-7.0); Hematocrit 39.5 % (33.0-51.0); Hemoglobin* 12.4 gm/dL (12.0-16.0); Immature Granulocytes Abs Auto 0.05 K/uL (0.00-0.30); Lymphocytes Percent Auto 11.4 % (20-44); Mean Corpuscular HGB Conc 31 gm/dL (32-36); Mean Corpuscular Hemoglobin 31 pg (26-34); Mean Corpuscular Volume 98 fL (80-100); Monocytes Percent Auto 7.5 % (0.0-11.0); Neutrophils Percent Auto 80.5 % (42.0-72.0); Platelet Count* 295 K/uL (140-440); RDW Coefficient of Variation % 14.1 % (11.5-15.5); Red Blood Count 4.03 m/uL (4.00-5.20); White Blood Count* 15.72 K/uL (4.50-11.00)
[2022-03-04] MEDS: predniSONE 20 MG TABLET 60 MG PO (07:39)
[2022-03-04 07:41] LABS: Slide Review Reflex No
[2022-03-04 08:05] LABS: Albumin* 3.7 g/dL (3.3-5.0); Chloride* 87 mmol/L (96-114); Sodium* 135 mmol/L (135-149)
[2022-03-04 08:06] LABS: Potassium* 3.9 mmol/L (3.6-5.1)
[2022-03-04 08:08] LABS: Bilirubin Total* 0.4 mg/dL (0.1-1.5); Creatinine* 0.7 mg/dL (0.5-1.5); Est. Creatinine Clearance* 60.18; Estimated Glomerular Filt Rate 97.12
[2022-03-04 08:09] LABS: Alanine Aminotransferase* 35 U/L (4-35); Alkaline Phosphatase* 99 U/L (40-150); Aspartate Amino Transferase* 37 U/L (12-35); Blood Urea Nitrogen* 23 mg/dL (7-30); Calcium* 8.4 mg/dL (8.4-10.6); Glucose* 98 mg/dL (60-115); Total Protein* 6.5 g/dL (6.0-8.3)
[2022-03-04 08:12] LABS: C Reactive Protein* 1.2 mg/dL (0.5-1.0)
[2022-03-04 08:19] LABS: Carbon Dioxide* 44 mmol/L (20-32); Troponin I* < 0.01 ng/mL (0.01-0.04)
--- NOTE | 2022-03-04 09:02 | PM.IMPN1 ---
Progress Note: A&P Assessment and plan (1) Hypoxia: Problem details: due to COPD exacerbation and hypoventilation from sleep apnea and opioid and benzodiazepine use Status: Acute Assessment and Plan: Continue to wean off tear opioid agonists. Try to assess appropriate oxygen supplementation with complicating CO2 retention. Home CPAP (2) COPD (chronic obstructive pulmonary disease): Problem details: having a COPD exacerbation. Causing her respiratory failure along with comorbidities noted below. Continue inhaled bronchodilators and systemic corticosteroids Status: Acute Assessment and Plan: continue systemic corticosteroids and bronchodilators (3) CO2 retention: Problem details: Worse today with pCO2 now 73. Minimize oxygen as much as possible. Minimize opioid pure agonists Status: Acute (4) Respiratory failure: Problem details: not tolerating being off BiPAP at all overnight. try to get home CPAP in the hospital Status: Acute (5) Chronic pain: Problem details: still getting p.r.n. oxycodone. Increase Suboxone Status: Acute (6) Congestive heart failure: Problem details: volume status appears stable Status: Acute (7) Chronic narcotic use: Problem details: I have taken away Scheduled morphine and oxycodone. She is on a lower dose of oxycodone p.r.n.. increase buprenorphine /Suboxone. Status: Acute (8) Acute confusion: Problem details: better today. Initially thought to be due to hypoxia and hypercarbia. Unclear what role medications are playing. Status: Acute (9) Acute hyponatremia: Problem details: Improved. Continue to follow Status: Acute (10) Diabetes mellitus type 2 in obese: Problem details: elevated blood sugars probably due to systemic corticosteroids. Continue to monitor and sliding scale insulin Status: Acute Time Spent With Patient Total time spent: Total time spent today is 40 minutes. 30 minutes in coordination of care and discussing with patient and other providers management of respiratory failure and managing pain and opioid use. Subjective Date Seen: 03/04/22 Interval history: patient reports that her pain is on not optimally controlled with the current strategy. After discussion I have recommend we increase her Suboxone to see if that will help her. She has maintain her O2 sats around the upper 80s and lower 90s on BiPAP at night and now on nasal cannula oxygen at 1.5 L this morning. Her pCO2 however has increased to 73. her pH remains normal. This is reflecting an acute on chronic hypoventilation and CO2 retention . I recommended that we continue to try to get her off opioid agonists except for use of buprenorphine for her pain and to protect her from opioid overdose and excessive sedation. Exam Narrative: Exam Narrative: she is sleeping when I 1st see her. She arouses to voice. She appears in no distress. Respirations with diffuse expiratory wheezing. Decreased breath sounds. Prolonged expiratory phase. Cardiovascular: S1, S2, regular rate and rhythm. Abdomen: Bowel sounds active. Abdomen is soft without tenderness or mass. Extremities without edema. Good peripheral pulses. Const: Vital Signs, click to edit/add: Vital Signs - 24 hr 03/03/22 09:22 03/03/22 09:24 03/03/22 11:21 Temperature 96.1 F L Pulse Rate Pulse Rate [Right Radial] 67 Respiratory Rate 14 14 Blood Pressure [Le ft Arm] 125/68 Pulse Oximetry 88 88 90 03/03/22 15:22 03/03/22 15:32 03/03/22 15:57 Temperature 95.8 F L Pulse Rate 72 Pulse Rate [Right Radial] 69 69 Respiratory Rate 14 14 Blood Pressure [Le ft Arm] 107/50 L Pulse Oximetry 93 03/03/22 19:00 03/03/22 19:12 03/03/22 23:00 Temperature 97.4 F L 97.4 F L 97.8 F Pulse Rate 71 Pulse Rate [Right Radial] 72 72 Respiratory Rate 18 18 Blood Pressure [Le ft Arm] 128/68 121/63 Pulse Oximetry 92 88 91 03/04/22 00:38 03/04/22 03:00 03/04/22 07:33 Temperature 97.8 F 97.6 F Pulse Rate 71 Pulse Rate [Right Radial] 71 61 Respiratory Rate 18 16 Blood Pressure [Le ft Arm] 130/70 114/68 Pulse Oximetry 91 91 03/04/22 07:55 Temperature Pulse Rate 66 Pulse Rate [Right Radial] Respiratory Rate Blood Pressure [Le ft Arm] Pulse Oximetry Documenting provider has reviewed patient's vital signs: yes Labs Labs: Laboratory Results - last 24 hr 03/04/22 03/04/22 03/04/22 06:34 06:34 06:34 WBC 15.72 H RBC 4.03 Hgb 12.4 Hct 39.5 MCV 98 MCH 31 MCHC 31 L RDW Coeff of Renetta 14.1 Plt Count 295 Neut % (Auto) 80.5 H Lymph % (Auto) 11.4 L [place] % (Auto) 7.5 Eos % (Auto) 0.1 Baso % (Auto) 0.2 Neut # (Auto) 12.70 H Lymph # (Auto) 1.80 [place] # (Auto) 1.20 H Eos # (Auto) 0.00 Baso # (Auto) 0.00 Abs Immat Gran (auto) 0.05 VBG pH 7.414 VBG pCO2 73 H* VBG pO2 38.1 VBG HCO3 47 H Sodium 135 Potassium 3.9 Chloride 87 L Carbon Dioxide 44 H* BUN 23 Creatinine 0.7 Estimated Creat Clear 60.18 Glucose 98 Calcium 8.4 Magnesium 2.0 Total Bilirubin 0.4 AST 37 H ALT 35 Alkaline Phosphatase 99 Troponin I < 0.01 L C-Reactive Protein 1.2 H Total Protein 6.5 Albumin 3.7
[2022-03-04] MEDS: ONDANSETRON 2 MG/ML inj 4 MG IVP ×2 (09:12→18:32)
[2022-03-04] MEDS: SODIUM CHLORIDE 0.9 % (FLUSH) 10 ML SYRINGE 5 ML IVF ×2 (09:13→21:12)
[2022-03-04] MEDS: LEVOTHYROXINE 50 MCG TABLET PO (09:15)
[2022-03-04] MEDS: ACETAMINOPHEN 325 MG TABLET 650 MG PO ×2 (09:47→23:03)
[2022-03-04] MEDS: ISOSORBIDE MONONITRATE ER 30 MG TAB 120 MG PO (09:47)
[2022-03-04] MEDS: ASPIRIN 81 MG TAB.CHEW PO (09:48)
[2022-03-04] MEDS: ALPRAZolam 0.25 MG TABLET 0.5 MG PO ×2 (09:48→20:14)
[2022-03-04] MEDS: TORSEMIDE 20 MG TABLET PO ×2 (09:49→21:08)
[2022-03-04] MEDS: CLOPIDOGREL 75 MG TABLET PO (09:50)
[2022-03-04] MEDS: SENNOSIDES/DOCUSATE TABLET 2 TAB PO ×2 (09:50→21:08)
[2022-03-04] MEDS: ESCITALOPRAM 10 MG TABLET 20 MG PO (09:50)
[2022-03-04] MEDS: ESCITALOPRAM 10 MG TABLET PO (09:51)
[2022-03-04] MEDS: EZETIMIBE 10 MG TABLET PO (09:52)
[2022-03-04] MEDS: MAGNESIUM OXIDE 400 MG TABLET PO (09:52)
[2022-03-04] MEDS: METOPROLOL SUCCINATE (XL) 50 MG TAB PO (09:53)
[2022-03-04] MEDS: GLIMEPIRIDE 1 MG TABLET 2 MG PO ×2 (09:53→21:09)
[2022-03-04] MEDS: SERTRALINE 100 MG TABLET 50 MG PO (09:54)
[2022-03-04] MEDS: ROSUVASTATIN CALCIUM 10 MG TABLET 20 MG PO (09:54)
[2022-03-04] MEDS: levoFLOXacin 500 MG TABLET PO (11:12)
--- NOTE | 2022-03-04 12:20 | RESP.RT ---
Patient was off BiPAP all night and remains off during day. BiPAP remains on stand by. On Nasal Cannula 1.5 Lpm (Home Setting) to 2.0 Lpm, with SaO2 85-90%, respiratory rate 18-22/minute. Bilateral breath sounds with crackles and expiratory wheeze noted all palacio. Patient presents with a good loose congested cough, that she did not have yesterday. PEP therapy started; DuoNeb with Aerobika in line with air flow meter at 8 Lpm, patient increased SaO2 during treatment from 86% to 93%, with Nasal Cannula in place at 1.5 Lpm. Loud expiratory musical wheeze noted during treatment, increased air movement with treatment noted. Patient Has DuoNeb TID at home, and Albuterol MDI PRN that she stated uses with extension. Patient has Home Oxygen. Encouraged patient to be pro-active at home with PRN MDI to maintain healthy respiratory condition.
--- NOTE | 2022-03-04 19:41 | PC.NURSE ---
End of shift-- Pt was pleasant and cooperative, alert and oriented today. VSS and pt is afebrile. SPO2 maintained >88% on 1.5L per n.c. most of the day. While sleeping, pt's O2 sats were noted to drop as low as 84% and O2 was increased to 2L. Pt's own CPAP was brought in from home and RT set it up for O2 to be bled in while pt sleeps tonight. Pt c/o pain in right shoulder and neck today that she rated from 6 to 8 today that appeared well managed with Oxycodone q4h and increased dose of Suboxone throughout the day. Telemetry shows NSR. Wheezes auscultated throughout lung palacio today and crackles noted in bases. Improvement noted in the afternoon. She was up to BR independently and tolerated it fair. Blood sugar this evening was 470. Pt had eaten recently prior to taking it. was notified and pt was given 18 units Novolog per sliding scale. Report to AVE Gibbs.
[2022-03-04] MEDS: PRAZOSIN HCL 1 MG CAPSULE 4 MG PO (21:07)
[2022-03-05] MEDS: ENOXAPARIN 40 MG/0.4 ML INJ SUBCUT (00:24)
[2022-03-05] MEDS: OXYCODONE 5 MG TABLET PO ×2 (03:05→07:34)
[2022-03-05] MEDS: ONDANSETRON 2 MG/ML inj 4 MG IVP ×2 (03:08→09:22)
[2022-03-05 03:14] VITALS: BP 120/67; PULSE 64; RESP 20; TEMP 36.4; O2SAT 91
--- NOTE | 2022-03-05 06:47 | PC.NURSE ---
NURSE NOTE -: Pt is A&O with forgetfulness noted, reinforcement given as needed. Pt c/o chronic shoulder pain, education given on why doctor decreased amount of narcotics and increased the Suboxone and pt is still frustrated as to why she cannot have more narcotics, pt declines heat/ice and wants oxycodone every 4 hours but reports minimal relief. Pt off and on upset about her chronic pain and feeling it is mismanaged, MD updated with no new orders received. Pt up independent in room. On 1.5L O2 PNC until bedtime when 1.5L was bled into CPAP overnight until 0400 then decreased to 1L O2 with pt O2 saturations ranging from high 80's to low 90's. Pt SOB with exertion. PRN Zofran given x1 for pt complaint of nausea, effective, no emesis.
[2022-03-05 07:00] VITALS: BP 124/59; PULSE 58; PULSE 63; RESP 12; TEMP 36.6; O2SAT 94
[2022-03-05] MEDS: IPRAT-ALBUT 0.5-2.5 MG/3 ML NEB 1 NEB IH (07:34)
[2022-03-05] MEDS: ASPIRIN 81 MG TAB.CHEW PO (08:55)
[2022-03-05] MEDS: predniSONE 20 MG TABLET 60 MG PO (08:56)
[2022-03-05] MEDS: LEVOTHYROXINE 50 MCG TABLET PO (08:58)
[2022-03-05] MEDS: ISOSORBIDE MONONITRATE ER 30 MG TAB 120 MG PO (08:58)
[2022-03-05] MEDS: SENNOSIDES/DOCUSATE TABLET 2 TAB PO (08:59)
[2022-03-05] MEDS: ROSUVASTATIN CALCIUM 10 MG TABLET 20 MG PO (09:00)
[2022-03-05] MEDS: EZETIMIBE 10 MG TABLET PO (09:00)
[2022-03-05] MEDS: MAGNESIUM OXIDE 400 MG TABLET PO (09:00)
[2022-03-05] MEDS: METOPROLOL SUCCINATE (XL) 50 MG TAB PO (09:01)
[2022-03-05] MEDS: CLOPIDOGREL 75 MG TABLET PO (09:01)
[2022-03-05] MEDS: TORSEMIDE 20 MG TABLET PO (09:01)
[2022-03-05] MEDS: SERTRALINE 100 MG TABLET 50 MG PO (09:02)
[2022-03-05] MEDS: ESCITALOPRAM 10 MG TABLET PO (09:02)
[2022-03-05] MEDS: ESCITALOPRAM 10 MG TABLET 20 MG PO (09:04)
[2022-03-05] MEDS: ALPRAZolam 0.25 MG TABLET 0.5 MG PO (09:06)
[2022-03-05] MEDS: GLIMEPIRIDE 1 MG TABLET 2 MG PO (09:07)
[2022-03-05] MEDS: SODIUM CHLORIDE 0.9 % (FLUSH) 10 ML SYRINGE 5 ML IVF (09:08)
[2022-03-05 09:38] LABS: HCO3 VBG 43 mmol/L (21-28); PCO2 VBG 58 mmHG (40-50); PO2 VBG 54.7 mmHG (25-47); pH VBG 7.481 (7.32-7.43)
[2022-03-05] MEDS: levoFLOXacin 500 MG TABLET PO (09:39)
[2022-03-05 09:53] LABS: Chloride* 87 mmol/L (96-114); Potassium* 3.6 mmol/L (3.6-5.1); Sodium* 137 mmol/L (135-149)
[2022-03-05 09:55] LABS: Carbon Dioxide* 43 mmol/L (20-32); Glucose* 143 mg/dL (60-115)
[2022-03-05 10:00] LABS: Basophils Percent Auto 0.1 % (0.0-3.0); Eosinophils Percent Auto 0.1 % (0.0-7.0); Immature Granulocytes Abs Auto 0.06 K/uL (0.00-0.30); Lymphocytes Percent Auto 19.7 % (20-44); Mean Corpuscular HGB Conc 32 gm/dL (32-36); Mean Corpuscular Hemoglobin 31 pg (26-34); Mean Corpuscular Volume 97 fL (80-100); Monocytes Percent Auto 9.7 % (0.0-11.0); Platelet Count* 278 K/uL (140-440); RDW Coefficient of Variation % 14.2 % (11.5-15.5); Red Blood Count 4.22 m/uL (4.00-5.20); White Blood Count* 13.55 K/uL (4.50-11.00)
[2022-03-05 10:09] LABS: Slide Review Reflex No
--- NOTE | 2022-03-05 10:54 | PM.DS1 ---
DS: Providers Provider Time Seen by Provider: 10:54 Date Seen: 03/05/22 Date of admission: 03/02/22 23:33 Primary care physician: Moreno Dill MD Admitting Clinician: Jamey Floyd MD Consults: 03/02/22 23:33 Consult to Respiratory Therapy [CONS] Routine Comment: Reason(s) for RT Consult:: Consult Attending Physician on discharge: Jamey Floyd MD Date of Discharge: 03/05/22 DS: Diagnosis Discharge Diagnosis (1) Diabetes mellitus type 2 in obese: Status: Acute Problem details: elevated blood sugars due to prednisone. Should improve when off prednisone (2) Hypoxia: Status: Acute Problem details: due to COPD exacerbation and hypoventilation from sleep apnea and opioid and benzodiazepine use. Patient does not tolerate significant oxygen supplementation. At 1 L per nasal cannula she has an acceptable level of CO2 retention. oxygen saturations in the upper 80s are probably her baseline. (3) COPD (chronic obstructive pulmonary disease): Status: Acute Problem details: Breathing improved with nebulizer treatment and prednisone (4) CO2 retention: Status: Acute Problem details: baseline pCO2 admission was 70 with a normal pH suggesting chronicity. Weaning her oxygen to 1 L per nasal cannula has gotten her pCO2 down to 53. Recommend limiting home oxygen to 1 L per nasal cannula (5) Respiratory failure: Status: Acute Problem details: improved (6) Chronic pain: Status: Acute Problem details: increased buprenorphine to 4 mg twice daily and stopped MS Contin and Percocet. She has done okay with this in the last 2 days. (7) Chronic narcotic use: Status: Acute Problem details: Increased buprenorphine. Recommending avoiding pure opioid agonists (8) Acute confusion: Status: Acute Problem details: better today. Initially thought to be due to hypoxia and hypercarbia. Unclear what role medications are playing in her acute confusion. (9) Acute hyponatremia: Status: Acute Problem details: Improved. DS: Summary Hospital Course Hospital Course: 62-year-old female with O2 dependent COPD, sleep apnea, heart failure, opioid dependence admitted to the hospital with a hypoxic respiratory failure. This was felt to be acute on chronic hypoxic and hypercarbic respiratory failure due to COPD primarily. Secondary considerations were opioid and benzodiazepine use causing respiratory depression. She was also acutely confused on admission. This was thought to be due to hypoxia, hypercarbia and possibly opioid and benzodiazepines contributing as well. She was treated with inhaled bronchodilators, prednisone and BiPAP followed by home CPAP and with this she had steady improvement. She reports he is now back to baseline. During her hospital stay her morphine and Percocet were stopped and her buprenorphine was increased from 2mg b.i.d. to 4 mg b.i.d. She seemed to tolerate this transition. Status at Discharge Overall status at discharge: patient is back to baseline Time Spent with Patient Time attestation: Total time spent providing and/or coordinating discharge services: Total time spent is 40 minutes in coordination of care on the day of discharge Time spent: Greater than 30 minutes Exam Narrative: Exam Narrative: she is alert and appears in no significant distress. Mild increased rate of breathing. Wheezing is much better today. Better air exchange in all lung palacio. Const: Vital Signs, click to edit/add: Vital Signs - 24 hr 03/04/22 11:00 03/04/22 11:27 03/04/22 15:00 Temperature 96.3 F L Pulse Rate Pulse Rate [Right Radial] 66 70 Respiratory Rate 14 14 14 Blood Pressure [Le ft Arm] 108/63 Blood Pressure [Le ft Forearm] Pulse Oximetry 89 91 03/04/22 15:15 03/04/22 15:28 03/04/22 20:16 Temperature 97.2 F L 97.5 F L Pulse Rate 69 Pulse Rate [Right Radial] 70 68 Respiratory Rate 14 20 Blood Pressure [Le ft Arm] 115/66 133/75 Blood Pressure [Le ft Forearm] Pulse Oximetry 88 88 03/04/22 23:03 03/04/22 23:11 03/04/22 23:26 Temperature 97.6 F 97.6 F Pulse Rate 75 Pulse Rate [Right Radial] 74 75 Respiratory Rate 20 20 Blood Pressure [Le ft Arm] 128/68 Blood Pressure [Le ft Forearm] Pulse Oximetry 90 90 03/05/22 03:14 03/05/22 07:00 Temperature 97.5 F L 98 F Pulse Rate 63 Pulse Rate [Right Radial] 64 63 Respiratory Rate 20 12 Blood Pressure [Le ft Arm] 120/67 Blood Pressure [Le ft Forearm] 124/59 L Pulse Oximetry 91 94 Documenting provider has reviewed patient's vital signs: yes DS: Data Data Completed and Pending Labs on day of discharge: Labs from last 24 hours 03/05/22 03/05/22 03/05/22 09:31 09:31 09:31 WBC 13.55 H RBC 4.22 Hgb 13.0 Hct 41.0 MCV 97 MCH 31 MCHC 32 RDW Coeff of Renetta 14.2 Plt Count 278 Neut % (Auto) 70.0 Lymph % (Auto) 19.7 L [place] % (Auto) 9.7 Eos % (Auto) 0.1 Baso % (Auto) 0.1 Neut # (Auto) 9.50 H Lymph # (Auto) 2.70 [place] # (Auto) 1.30 H Eos # (Auto) 0.00 Baso # (Auto) 0.00 Abs Immat Gran (auto) 0.06 VBG pH 7.481 H VBG pCO2 58 H VBG pO2 54.7 H VBG HCO3 43 H Sodium 137 Potassium 3.6 Chloride 87 L Carbon Dioxide 43 H* BUN Pending Creatinine Pending Glucose 143 H Calcium Pending Discharge Plan Discharge Disposition: Home, Self-Care Date of Admission: 03/02/22 23:33 Attending Provider on Discharge: Jamey Floyd Primary Care Provider: Moreno Dill Condition: Stable Anticipated Discharge Date/Time: 03/05/22 10:21 Discharge Medications: New furosemide [Lasix] 20 mg tablet 10 mg PO QAM Qty: 1 0RF prednisone 20 mg tablet 20 mg PO BID Qty: 10 0RF nystatin 500,000 unit tablet 500,000 unit PO QID Qty: 20 0RF Continued ipratropium-albuterol 0.5 mg-3 mg(2.5 mg base)/3 mL solution for nebulization 3 ml inhalation Q6-8H PRN0RF aspirin 81 mg tablet,chewable 81 mg PO DAILY 0RF naloxone 4 mg/actuation spray,non-aerosol 4 mg intranasal Q2-3M PRN0RF Rx Instructions: spray 1 dose into ONE nostril; alternate nostrils w each dose until help arrives sennosides-docusate sodium 8.6-50 mg tablet 2 tab PO BID 0RF levothyroxine [Synthroid] 50 mcg tablet 50 mcg PO DAILY 0RF rosuvastatin [Crestor] 20 mg tablet 20 mg PO DAILY 0RF clopidogrel [Plavix] 75 mg tablet 75 mg PO DAILY 0RF budesonide-formoterol 160-4.5 mcg/actuation HFA aerosol inhaler 2 inh inhalation BID 0RF nitroglycerin [Nitrostat] 0.4 mg tablet, sublingual 0.4 mg sublingual Q5M 0RF Rx Instructions: do not exceed 3 doses per episode Spiriva with HandiHaler 18 mcg capsule, w/inhalation device 1 cap INHALATION DAILY 0RF esomeprazole magnesium [Nexium] 40 mg capsule,delayed release(DR/EC) 40 mg PO DAILY 0RF ezetimibe [Zetia] 10 mg tablet 10 mg PO DAILY 0RF methocarbamol 500 mg tablet 1,000 mg PO .QHS 0RF glimepiride 1 mg tablet 2 mg PO BID 0RF isosorbide mononitrate 60 mg tablet extended release 24 hr 120 mg PO DAILY 0RF magnesium oxide 400 mg magnesium capsule 400 mg PO DAILY 0RF potassium chloride 20 mEq tablet,ER particles/crystals 40 meq PO DAILY 0RF Nasal [place] (sodium chloride) 0.65 % aerosol,spray 2 spray intranasal Q2H PRN0RF (DME) Home Oxygen Misc See Rx Instructions .ROUTE 0RF Rx Instructions: As directed meclizine 25 mg tablet 25 mg PO .TID PRN 0RF metoprolol succinate 50 mg tablet extended release 24 hr 50 mg PO DAILY 0RF torsemide 20 mg tablet 20 mg PO BID-TID 0RF ondansetron HCl 4 mg tablet 4 mg PO Q8H PRN0RF mirtazapine 15 mg tablet 7.5 mg PO .QHS 0RF prazosin 2 mg capsule 4 mg PO .QHS 0RF sertraline 100 mg tablet 50 mg PO DAILY 0RF Rx Instructions: Week 1: 100mg daily, Week 2: 50mg Daily, Week 3: stop Rx ordered 02/01/22 alprazolam [Xanax] 0.5 mg tablet 0.5 mg PO BID 0RF escitalopram oxalate 20 mg tablet 20 mg PO DAILY 0RF albuterol sulfate 90 mcg/actuation HFA aerosol inhaler 2 puff INHALATION .Q4H PRN Qty: 8.5 0RF Changed buprenorphine HCl 2 mg tablet, sublingual 4 mg SUBLINGUAL BID Qty: 12 0RF Discontinued oxycodone-acetaminophen 7.5-325 mg tablet 1 tab PO TID PRN0RF morphine 15 mg tablet extended release 15 mg PO BID 0RF Discharge Orders: Discharge Order (Routine); Ordered 07/11/22 Ordered By: Jamey Floyd Patient Education: Furosemide (By mouth), Prednisone (By mouth) Activity Restrictions/Additional Instructions: I have made changes to help your breathing. Please make the following changes at home: Stop taking morphine and oxycodone/ acetaminophen. To help your pain I have increased your buprenorphine to 4 mg twice a day or 2 tablets twice a day. Please talk to the doctor that prescribes your buprenorphine to discuss ongoing management of this medication. Use your CPAP whenever you are sleeping during the day or at night. Do not use more than 1 L/min of oxygen as too much oxygen is dangerous for you. You can use oxygen with your CPAP at 1 L and you can use 1 L/min of oxygen by nasal cannula when you are awake and moving around. I have temporarily put you on prednisone again. This will cause your blood sugars to be high for a few days. See your doctor this week to recheck your breathing and review this plan. Activity Level: Activity as Tolerated Follow Up Appointments: Moreno Dill MD [Primary Care Provider] - 03/06/22 1:40 pm Forms: [employer] Info Instructions
--- NOTE | 2022-03-05 11:43 | PC.NURSE ---
End of Shift: Patient pleasant and cooperative. Patient vitally stable, lungs with wheezes anteriorly and posteriorly, BS WNL, IV removed catheter intact. Patient on 1 L of oxygen by NS with sats up to 94%, 1 L was bled into cpap when sleeping this morning. Patient is independent in room. Patient rated pain 6/10 in shoulder and neck, 5 mg of oxycodone was given. Patient signed discharge form and belongings sheet. Medications were reviewed, patient had no further questions regarding new meds. Patient left the floor by wheelchair at 1130 with her belongings.
[2022-03-05 12:55] LABS: Blood Urea Nitrogen* 25 mg/dL (7-30); Calcium* 8.7 mg/dL (8.4-10.6); Creatinine* 0.8 mg/dL (0.5-1.5); Est. Creatinine Clearance* 60.18; Estimated Glomerular Filt Rate 82.74
== END 2022-03-05 11:30 | disposition home or self-care (01) | DRG 190 ==
LOC: ED 23:24 → MEDSURG 23:35
PROVIDERS: Admitting Provider Family Medicine; Emergency Provider Family Medicine; PCP Family Medicine; Visit Provider Family Medicine
DX: J44.1 Chronic obstructive pulmonary disease with (acute) exacerbation (principal); J96.02 Acute respiratory failure with hypercapnia; J96.01 Acute respiratory failure with hypoxia; F33.9 Major depressive disorder, recurrent, unspecified; E87.1 Hypo-osmolality and hyponatremia; I50.30 Unspecified diastolic (congestive) heart failure; F41.9 Anxiety disorder, unspecified; G89.29 Other chronic pain; K21.9 Gastro-esophageal reflux disease without esophagitis; E05.00 Thyrotoxicosis with diffuse goiter without thyrotoxic crisis or storm; G47.33 Obstructive sleep apnea (adult) (pediatric); G47.36 Sleep related hypoventilation in conditions classified elsewhere; R41.0 Disorientation, unspecified; E66.9 Obesity, unspecified; E11.8 Type 2 diabetes mellitus with unspecified complications; E78.5 Hyperlipidemia, unspecified; E03.9 Hypothyroidism, unspecified; F43.10 Post-traumatic stress disorder, unspecified; M48.061 Spinal stenosis, lumbar region without neurogenic claudication; F60.89 Other specific personality disorders; I25.10 Atherosclerotic heart disease of native coronary artery without angina pectoris; I11.0 Hypertensive heart disease with heart failure
CPT/HCPCS: 36415; 71046; 80048; 80053; 80076; 81001; 82803; 83735; 83880; 84484; 85025; 85379; 86140; 87086; 87186; 87426; 93005; 94640; 94660; 94761; 99284; A9270; J1650; J1940; J2405; J7512

== ENCOUNTER 2022-03-28 09:44 | Emergency (ER) | payer OTHER, SELFPAY ==
[2022-03-28 09:56] VITALS: BP 112/60; PULSE 68; RESP 22; TEMP 36.4; O2SAT 91; BMI 33.1
--- NOTE | 2022-03-28 10:48 | ED.GENADULT ---
HPI - General Adult General Time Seen by Provider: 10:48 Date Seen: 03/28/22 Chief complaint: Extremity Pain/Injury, Lower Stated complaint: fall/right foot injury Time Seen by Provider: 03/28/22 10:48 Source: patient, RN notes reviewed and old records reviewed Mode of arrival: ambulatory Limitations: no limitations History of Present Illness HPI narrative: This 62-year-old female is coming in primarily for right foot pain and increasing difficulty walking on it. She is also reporting some a lung congestion. She has felt a little more short of breath, has noted 8 lb weight gain over the last 2 days. Her lower extremities have had fluid buildup. She is also noted some cough seen and it is more frothy like it could be congestive heart failure. She states she has a history of both an really can not tell which this is. She is wondering if a course of steroids might help her. I have reviewed with her that steroids do not help congestive heart failure. She states she is on torsemide and has been taking it daily. She notes over the last year she has been intermittently on the diuretic but as of late has been on it consistently. She saw Dr. Stout recently in the ER and the diuretic was re-initiated. She has had no fevers or chills. Sputum is non colored, she does not think she is ill with anything. She is not having any chest pain. For her foot she did try Percocet this morning, had a little nausea from this and is requesting some Zofran which we certainly can do. She states her foot is extremely painful and throbbing right now. She tripped injuring it somehow of couple nights ago. Weight-bearing has gotten increasingly more painful for her. Patient baseline uses CPAP at night in there is some oxygen with that. Related Data Home Medications Medication Instructions Recorded Confirmed Home Oxygen 03/02/22 03/02/22 alprazolam 0.5 mg tablet (Xanax) 0.5 mg PO BID 03/02/22 03/02/22 aspirin 81 mg chewable tablet 81 mg PO DAILY 03/02/22 03/02/22 budesonide-formoterol HFA 160 2 inh inhalation BID 03/02/22 03/02/22 mcg-4.5 mcg/actuation aerosol inhaler clopidogrel 75 mg tablet (Plavix) 75 mg PO DAILY 03/02/22 03/02/22 escitalopram oxalate 20 mg tablet 20 mg PO DAILY 03/02/22 03/02/22 esomeprazole magnesium 40 mg 40 mg PO DAILY 03/02/22 03/02/22 capsule,delayed release (Nexium) ezetimibe 10 mg tablet (Zetia) 10 mg PO DAILY 03/02/22 03/02/22 glimepiride 1 mg tablet 2 mg PO BID 03/02/22 03/02/22 ipratropium 0.5 mg-albuterol 3 mg 3 ml inhalation Q6-8H PRN 03/02/22 03/02/22 (2.5 mg base)/3 mL nebulization soln isosorbide mononitrate 60 mg 120 mg PO DAILY 03/02/22 03/02/22 tablet,extended release 24 hr levothyroxine 50 mcg tablet 50 mcg PO DAILY 03/02/22 03/02/22 (Synthroid) magnesium oxide 400 mg PO DAILY 03/02/22 03/02/22 meclizine 25 mg tablet 25 mg PO .TID PRN 03/02/22 03/02/22 methocarbamol 500 mg tablet 1,000 mg PO .QHS 03/02/22 03/02/22 metoprolol succinate 50 mg 50 mg PO DAILY 03/02/22 03/02/22 tablet,extended release 24 hr mirtazapine 15 mg tablet 7.5 mg PO .QHS 03/02/22 03/02/22 naloxone 4 mg/actuation nasal spray 4 mg intranasal Q2-3M PRN 03/02/22 03/02/22 nitroglycerin 0.4 mg sublingual 0.4 mg sublingual Q5M 03/02/22 03/02/22 tablet (Nitrostat) ondansetron HCl 4 mg tablet 4 mg PO Q8H PRN 03/02/22 03/03/22 potassium chloride 20 mEq 40 meq PO DAILY 03/02/22 03/02/22 tablet,extended release(part/cryst) prazosin 2 mg capsule 4 mg PO .QHS 03/02/22 03/02/22 rosuvastatin 20 mg tablet (Crestor) 20 mg PO DAILY 03/02/22 03/02/22 sennosides 8.6 mg-docusate sodium 2 tab PO BID 03/02/22 03/03/22 50 mg tablet sertraline 100 mg tablet 50 mg PO DAILY 03/02/22 03/03/22 sodium chloride 0.65 % nasal spray 2 spray intranasal Q2H PRN 03/02/22 03/02/22 aerosol (Nasal Kersey (sodium chloride)) tiotropium bromide 18 mcg capsule 1 cap inhalation DAILY 03/02/22 03/02/22 with inhalation device (Spiriva with HandiHaler) torsemide 20 mg tablet 20 mg PO BID-TID 03/02/22 03/02/22 Previous Rx's Medication Instructions Recorded Lasix 20 mg tablet (furosemide) 10 mg PO QAM #1 tab 03/02/22 albuterol sulfate 90 mcg/actuation 2 puff inhalation .Q4H PRN #8.5 03/05/22 aerosol inhaler grams buprenorphine HCl 2 mg sublingual 4 mg sublingual BID #12 tabs 03/05/22 tablet nystatin 500,000 unit tablet 500,000 unit PO QID #20 tabs 03/05/22 prednisone 20 mg tablet 20 mg PO BID #10 tabs 03/05/22 prednisone 20 mg tablet 20 mg PO BID #6 tabs 03/28/22 Allergies Allergy/AdvReac Type Severity Reaction Status Date / Time buprenorphine Allergy Severe respiratory Verified 03/02/22 20:58 distress sumatriptan Allergy Severe Anaphylaxis Verified 03/02/22 20:58 buspirone Allergy Intermediate Rash Verified 03/02/22 20:58 gabapentin Allergy Intermediate gi upset Verified 03/02/22 20:58 niacin Allergy Intermediate Verified 03/02/22 20:58 trazodone Allergy Intermediate Verified 03/02/22 20:58 atorvastatin Allergy Mild myalgia Verified 03/02/22 20:58 codeine Allergy Mild itching Verified 03/02/22 20:58 rizatriptan Allergy Mild Flushing Verified 03/02/22 20:58 Review of Systems Status of ROS: Reports: 10 or more systems reviewed and unremarkable except as noted in History and below [facility] Medical History Acute and chronic respiratory failure ([id number]) Acute confusion Acute hyponatremia Acute on chronic heart failure with preserved ejection fraction Allergic rhinitis due to pollen Anxiety Arthropathy of spinal facet joint Asthma CAD (coronary artery disease) Chest pain Chronic pain syndrome Cluster B personality disorder CO2 retention Congestive heart failure COPD (chronic obstructive pulmonary disease) Diabetes mellitus type 2 in obese Edema GERD (gastroesophageal reflux disease) Graves disease History of nicotine dependence Hyperlipidemia Hypothyroidism Insomnia Leukocytosis Lumbar spinal stenosis Opioid dependence SOCORRO (obstructive sleep apnea) Panic disorder PTSD (post-traumatic stress disorder) Recurrent major depression Refractory migraine Respiratory failure Secondary polycythemia Type 2 diabetes mellitus with circulatory disorder, without long-term current use of insulin Surgical History Failed CABG (coronary artery bypass graft) H/O heart artery stent Social History Narrative: Patient lives alone in [place]. Former smoker. No longer smoking. She does not drink alcohol. Her healthcare power of disability attorney is her future [id number], [employer]. code status is DNR. Highest level of school completed/degree received: some college, no degree Smoking Status: Former smoker What tobacco products do you use: cigarettes Smoking quit date/years: <= 15 years ago Do you use any of these nicotine containing products: None Second hand tobacco smoke exposure: No How often do you have a drink containing alcohol: never How often do you have six or more drinks on one occasion: Never AUDIT-C Alcohol total score: 0 Non-prescribed substance use: denies use Caffeine: Yes service: No Exam Const: Vital Signs, click to edit/add: Vital Signs - 24 hr 03/28/22 09:56 03/28/22 11:05 03/28/22 12:10 Temperature 97.5 F L Pulse Rate [Pulse Oximeter] 68 79 Respiratory Rate 22 22 Blood Pressure [Ri ght Upper Arm] 112/60 127/55 L Pulse Oximetry 91 85 L 80 L Oxygen Delivery Me thod Room Air Room Air Nasal Cannula Oxygen Flow Rate 1 1 Documenting provider has reviewed patient's vital signs: yes Common normals: no apparent distress, oriented x3, no limitations, healthy appearing and alert General appearance: cooperative and comfortable Nutritional appearance: overweight HENMT: Common normals: normocephalic, head/scalp atraumatic, hearing grossly normal bilaterally, external ears normal, external nose normal, nasal mucous membranes and turbinates normal, moist oral mucous membranes and oropharynx normal Head and scalp: normocephalic and atraumatic Nose: external nose normal and nasal mucous membranes and turbinates normal External ear: external ears normal Eye: Common normals: PERRL, EOMs intact bilaterally, conjunctivae normal and no scleral icterus Conjunctiva: conjunctiva(e) normal Pupil: PERRL Neck & C-Spine: Common normals: full ROM, no lymphadenopathy, supple, no meningeal signs and thyroid normal Thyroid: thyroid normal Resp: Common normals: normal respiratory effort, no retractions and no use of accessory muscles Other: Distant breath sounds. Can hear some forced occasional expiratory wheezing. No crackles noted Cardio: Common normals: regular rate, regular rhythm, S1 normal heart sound, S2 normal heart sound, no gallops, no clicks and no murmurs Rate: regular rate Rhythm: regular rhythm Heart sounds: S1 normal and S2 normal GI: Common normals: Normal to inspection, nondistended, normoactive bowel sounds present, soft to palpation, non-tender, no hepatosplenomegaly and no masses Palpation: soft and no hepatosplenomegaly Extremity: Other: The toes of her right foot have ecchymosis throughout the bases of all of them. The dorsum of the right foot looks swollen, she is tender when I palpate over the midfoot over all the metatarsals, overall toes. She does seem to have normal sensation, absolutely nontender over the malleoli of the ankle or the ankle mortise itself. Of note, she does have 3 to 4+ pitting edema upper lower extremities. Legs are warm, no overlying rashes. Neuro: Common normals: oriented x3 Sensorium/orientation: alert Meningeal signs: no meningeal signs Course Course Hospital Course: We will certainly x-ray her foot for trauma such as a fracture. As for her respiratory symptoms with the complaint of congestion, this certainly could be fluid overload or COPD. She has both an she states it is difficult for her to tell which is bothering her. At this point we will start with a chest x-ray and complement of labs. She will be monitored on pulse oximetry and cardiac monitoring here does not seem that this is ischemic disease at this time as she is having no chest pain but will do a troponin. Reevaluation(s) Reevaluation #1: Spent significant time talking Meg about her condition. She at this point adamantly refuses hospitalization. I have discussed with her I think she would benefit, really needs to consider trial of maybe BiPAP or alternate airways at home chronically. She states she is starting to tolerate the CPAP in doing better with the mask. Reviewed the CO retention with her and complications with this. Also reviewed that she really should not take narcotics with C retention. We will not give her further doses and she understands. Her foot x-ray is not showing fracture. She wants to try some steroids, I do not think a short course of 3 days will harm her but I am not clear that there is any significant benefit to this. She does not have a civil lawyer in does need to get 1. I think she would also benefit from a new sleep study. She wants to try this outpatient. Will have her double her torsemide for 2 of her doses and then go back to baseline. We will try this outpatient as she has requested but I would prefer hospitalization. Risks benefits and complications including have been explained to her. She promises she will return if she is worsening. I had talked to trace of about doing a chest CT here, consideration for hospitalization potentially with the trial BiPAP. She is adamant that she wants to go home, just wants to try the steroids in the increased diuretic. Time: 12:41 Vital Signs Vital signs: Initial Vital Signs Temperature 97.5 F L 03/28/22 09:56 Temperature Source Temporal Artery Scan 03/28/22 09:56 Pulse Rate 68 03/28/22 09:56 Respiratory Rate 22 03/28/22 09:56 Blood Pressure 112/60 03/28/22 09:56 Blood Pressure Mean 77 03/28/22 09:56 Blood Pressure Position Supine 03/28/22 09:56 Pulse Oximetry 91 03/28/22 09:56 Oxygen Delivery Method 03/28/22 09:56 Vital Signs Temperature 97.5 F L 03/28/22 09:56 Pulse Rate 68 03/28/22 09:56 Respiratory Rate 22 03/28/22 09:56 Blood Pressure 112/60 03/28/22 09:56 Pulse Oximetry 91 03/28/22 09:56 Oxygen Delivery Method 03/28/22 09:56 Temperature 97.5 F L 03/28/22 09:56 Pulse Rate 79 03/28/22 12:10 Respiratory Rate 03/28/22 12:10 Blood Pressure 127/55 L 03/28/22 12:10 Pulse Oximetry 80 L 03/28/22 12:10 Oxygen Delivery Method 03/28/22 12:10 Oxygen Flow Rate 1 03/28/22 12:10 Medical Decision Making Lab Data Lab results reviewed: Yes I reviewed the patient's lab results Labs: Lab Results 03/28/22 03/28/22 03/28/22 Range/Units 11:06 11:22 11:22 WBC 11.28 H (4.50-11.00) K/uL RBC 4.38 (4.00-5.20) m/uL Hgb 13.4 (12.0-16.0) gm/dL Hct 42.7 (33.0-51.0) % MCV 98 (80-100) fL MCH 31 (26-34) pg MCHC 31 L (32-36) gm/dL RDW Coeff of Renetta 13.9 (11.5-15.5) % Plt Count 275 (140-440) K/uL Neut % (Auto) 63.7 (42.0-72.0) % Lymph % (Auto) 25.2 (20-44) % [place] % (Auto) 9.4 (0.0-11.0) % Eos % (Auto) 0.4 (0.0-7.0) % Baso % (Auto) 0.4 (0.0-3.0) % Neut # (Auto) 7.20 H (1.7-7.0) K/uL Lymph # (Auto) 2.80 (0.90-2.90) K/uL [place] # (Auto) 1.10 H (0.00-0.90) K/UL Eos # (Auto) 0.00 (0.00-0.50) K/uL Baso # (Auto) 0.00 (0.00-0.30) K/uL Abs Immat Gran (auto) 0.10 (0.00-0.30) K/uL VBG pH (7.32-7.43) VBG pCO2 (40-50) mmHG VBG pO2 (25-47) mmHG VBG HCO3 (21-28) mmol/L Sodium 128 L (135-149) mmol/L Potassium 3.9 (3.6-5.1) mmol/L Chloride 85 L (96-114) mmol/L Carbon Dioxide 37 H (20-32) mmol/L BUN 19 (7-30) mg/dL Creatinine 0.8 (0.5-1.5) mg/dL Estimated Creat Clear 49.72 Estimated GFR 83 ml/min Glucose 147 H (60-115) mg/dL Lactate (0.5-1.9) mmol/L Calcium 8.5 (8.4-10.6) mg/dL Total Bilirubin 0.2 (0.1-1.5) mg/dL AST 39 H (12-35) U/L ALT 24 (4-35) U/L Alkaline Phosphatase 110 (40-150) U/L Troponin I (0.01-0.04) ng/mL C-Reactive Protein < 0.5 L (0.5-1.0) mg/dL NT-Pro-B Natriuret Pep 726 H (0-125) PG/mL Total Protein 7.4 (6.0-8.3) g/dL Albumin 4.1 (3.3-5.0) g/dL SARS-CoV-2 (PCR) Negative SARS-CoV-2 (Negative) 03/28/22 03/28/22 03/28/22 Range/Units 11:22 11:22 11:22 WBC (4.50-11.00) K/uL RBC (4.00-5.20) m/uL Hgb (12.0-16.0) gm/dL Hct (33.0-51.0) % MCV (80-100) fL MCH (26-34) pg MCHC (32-36) gm/dL RDW Coeff of Renetta (11.5-15.5) % Plt Count (140-440) K/uL Neut % (Auto) (42.0-72.0) % Lymph % (Auto) (20-44) % [place] % (Auto) (0.0-11.0) % Eos % (Auto) (0.0-7.0) % Baso % (Auto) (0.0-3.0) % Neut # (Auto) (1.7-7.0) K/uL Lymph # (Auto) (0.90-2.90) K/uL [place] # (Auto) (0.00-0.90) K/UL Eos # (Auto) (0.00-0.50) K/uL Baso # (Auto) (0.00-0.30) K/uL Abs Immat Gran (auto) (0.00-0.30) K/uL VBG pH 7.297 L (7.32-7.43) VBG pCO2 80 H* (40-50) mmHG VBG pO2 38.7 (25-47) mmHG VBG HCO3 39 H (21-28) mmol/L Sodium (135-149) mmol/L Potassium (3.6-5.1) mmol/L Chloride (96-114) mmol/L Carbon Dioxide (20-32) mmol/L BUN (7-30) mg/dL Creatinine (0.5-1.5) mg/dL Estimated Creat Clear Estimated GFR ml/min Glucose (60-115) mg/dL Lactate 1.0 (0.5-1.9) mmol/L Calcium (8.4-10.6) mg/dL Total Bilirubin (0.1-1.5) mg/dL AST (12-35) U/L ALT (4-35) U/L Alkaline Phosphatase (40-150) U/L Troponin I < 0.01 L (0.01-0.04) ng/mL C-Reactive Protein (0.5-1.0) mg/dL NT-Pro-B Natriuret Pep (0-125) PG/mL Total Protein (6.0-8.3) g/dL Albumin (3.3-5.0) g/dL SARS-CoV-2 (PCR) (Negative) Imaging Data Chest x-ray: Attestation: I have reviewed the pertinent imaging results. Radiologist's impression: Patient: MEG VERAS Facility:?[facility] Patient ID:?[id number] Site Patient ID:?[id number]. Site :?[id number] Study:?XRay Chest 2 VIEW-03/28/2022 11:59:19 AM Ordering Physician:Percy Mar Final Report: INDICATION: SOB, CHF vs COPD TECHNIQUE: Chest 2 views COMPARISON: 03/02/2022 FINDINGS: Cardiac silhouette is enlarged. Cephalization of the pulmonary vascularity. No pleural effusion or dense infiltrate. No fracture. Postop changes median sternotomy. Old left rib fracture. Postop changes lower cervical spine. IMPRESSION: Cephalization of the pulmonary vascularity suggesting fluid overload or pulmonary venous hypertension. No acute CHF. Dictated by Ra Correia MD @ 03/28/2022 12:04:31 PM (Electronic Signature) X-ray right foot: Attestation: I have reviewed the pertinent imaging results. Radiologist's impression: Patient: MEG VERAS Facility:?[facility] Patient ID:?[id number] Site Patient ID:?[id number]. Site :?[id number] Study:?XRay Extremity Right Foot 3 View-03/28/2022 11:59:55 AM Ordering Physician:Percy Mar Final Report: Indication: Injury and pain Technique: Right foot 3 views. Comparison: None Findings: Chronic ossicle dorsal to the tarsal navicular at the talonavicular joint. Dorsal forefoot soft tissue swelling. Hallux valgus with bunion. No acute fracture. Midfoot alignment is normal. Impression: No sign of acute injury. Dictated by Ra Correia MD @ 03/28/2022 12:05:56 PM (Electronic Signature) Critical Care Time Critical Care Time Critical Care Time: No Discharge Plan Discharge Clinical Impression: CO2 retention, COPD (chronic obstructive pulmonary disease), Contusion of foot, right Patient Disposition: Home, Self-Care Condition: Unchanged Additional Instructions: Can try a short course of prednisone as prescribed. Can double your torsemide for 2 doses and then go back to baseline. Need you to follow-up with your primary care provider within the next 1-2 days. If you are worsening at all, need to return. I do think that you should be referred to pulmonology and have an updated sleep study done if 1 has not been done within the last year. Due to CO2 retention, do not want to increase her oxygen supplementation too high or use sedating medications that can affect respiratory status like narcotic pain medicines or benzodiazepines in (like Ativan). Activity Level: Activity as Tolerated Prescriptions: New prednisone 20 mg tablet 20 mg PO BID Qty: 6 0RF No Action ipratropium-albuterol 0.5 mg-3 mg(2.5 mg base)/3 mL solution for nebulization 3 ml inhalation Q6-8H PRN aspirin 81 mg tablet,chewable 81 mg PO DAILY naloxone 4 mg/actuation spray,non-aerosol 4 mg intranasal Q2-3M PRN Rx Instructions: spray 1 dose into ONE nostril; alternate nostrils w each dose until help arrives sennosides-docusate sodium 8.6-50 mg tablet 2 tab PO BID levothyroxine [Synthroid] 50 mcg tablet 50 mcg PO DAILY rosuvastatin [Crestor] 20 mg tablet 20 mg PO DAILY clopidogrel [Plavix] 75 mg tablet 75 mg PO DAILY budesonide-formoterol 160-4.5 mcg/actuation HFA aerosol inhaler 2 inh inhalation BID nitroglycerin [Nitrostat] 0.4 mg tablet, sublingual 0.4 mg sublingual Q5M Rx Instructions: do not exceed 3 doses per episode Spiriva with HandiHaler 18 mcg capsule, w/inhalation device 1 cap INHALATION DAILY esomeprazole magnesium [Nexium] 40 mg capsule,delayed release(DR/EC) 40 mg PO DAILY ezetimibe [Zetia] 10 mg tablet 10 mg PO DAILY methocarbamol 500 mg tablet 1,000 mg PO .QHS glimepiride 1 mg tablet 2 mg PO BID isosorbide mononitrate 60 mg tablet extended release 24 hr 120 mg PO DAILY magnesium oxide 400 mg magnesium capsule 400 mg PO DAILY potassium chloride 20 mEq tablet,ER particles/crystals 40 meq PO DAILY Nasal Kersey (sodium chloride) 0.65 % aerosol,spray 2 spray intranasal Q2H PRN (DME) Home Oxygen Misc See Rx Instructions .ROUTE Rx Instructions: As directed meclizine 25 mg tablet 25 mg PO .TID PRN metoprolol succinate 50 mg tablet extended release 24 hr 50 mg PO DAILY torsemide 20 mg tablet 20 mg PO BID-TID ondansetron HCl 4 mg tablet 4 mg PO Q8H PRN mirtazapine 15 mg tablet 7.5 mg PO .QHS prazosin 2 mg capsule 4 mg PO .QHS sertraline 100 mg tablet 50 mg PO DAILY Rx Instructions: Week 1: 100mg daily, Week 2: 50mg Daily, Week 3: stop Rx ordered 02/01/22 alprazolam [Xanax] 0.5 mg tablet 0.5 mg PO BID escitalopram oxalate 20 mg tablet 20 mg PO DAILY furosemide [Lasix] 20 mg tablet 10 mg PO QAM Qty: 1 0RF prednisone 20 mg tablet 20 mg PO BID Qty: 10 0RF buprenorphine HCl 2 mg tablet, sublingual 4 mg SUBLINGUAL BID Qty: 12 0RF nystatin 500,000 unit tablet 500,000 unit PO QID Qty: 20 0RF albuterol sulfate 90 mcg/actuation HFA aerosol inhaler 2 puff INHALATION .Q4H PRN Qty: 8.5 0RF Follow Up/Referrals: Moreno Dill MD [Primary Care Provider] - Stand Alone Forms: [facility] Info Instructions
[2022-03-28 11:05] VITALS: O2SAT 85
--- NOTE | 2022-03-28 11:05 | CRLHL7_ITS ---
For Patients: As a result of the Cures Act, medical imaging exams and procedure reports are released immediately into your electronic medical record. You may view this report before your referring provider. If you have questions, please contact your health care provider. INDICATION: SOB, CHF vs COPD TECHNIQUE: Chest 2 views COMPARISON: 03/02/2022 FINDINGS: Cardiac silhouette is enlarged. Cephalization of the pulmonary vascularity. No pleural effusion or dense infiltrate. No fracture. Postop changes median sternotomy. Old left rib fracture. Postop changes lower cervical spine. IMPRESSION: Cephalization of the pulmonary vascularity suggesting fluid overload or pulmonary venous hypertension. No acute CHF. Dictated by Ra Correia MD @ 03/28/2022 12:04:31 PM (Electronically Signed)
--- NOTE | 2022-03-28 11:05 | CRLHL7_ITS ---
For Patients: As a result of the Century Cures Act, medical imaging exams and procedure reports are released immediately into your electronic medical record. You may view this report before your referring provider. If you have questions, please contact your health care provider. Indication: Injury and pain Technique: Right foot 3 views. Comparison: None Findings: Chronic ossicle dorsal to the tarsal navicular at the talonavicular joint. Dorsal forefoot soft tissue swelling. Hallux valgus with bunion. No acute fracture. Midfoot alignment is normal. Impression: No sign of acute injury. Dictated by Ra Correia MD @ 03/28/2022 12:05:56 PM (Electronically Signed)
[2022-03-28 11:39] LABS: Basophils Percent Auto 0.4 % (0.0-3.0); Eosinophils Percent Auto 0.4 % (0.0-7.0); Hematocrit 42.7 % (33.0-51.0); Hemoglobin* 13.4 gm/dL (12.0-16.0); Lymphocytes Percent Auto 25.2 % (20-44); Mean Corpuscular HGB Conc 31 gm/dL (32-36); Mean Corpuscular Hemoglobin 31 pg (26-34); Mean Corpuscular Volume 98 fL (80-100); Monocytes Percent Auto 9.4 % (0.0-11.0); Neutrophils Percent Auto 63.7 % (42.0-72.0); Platelet Count* 275 K/uL (140-440); RDW Coefficient of Variation % 13.9 % (11.5-15.5); Red Blood Count 4.38 m/uL (4.00-5.20); White Blood Count* 11.28 K/uL (4.50-11.00)
[2022-03-28 11:42] LABS: HCO3 VBG 39 mmol/L (21-28); PO2 VBG 38.7 mmHG (25-47); pH VBG 7.297 (7.32-7.43)
[2022-03-28 11:47] LABS: PCO2 VBG 80 mmHG (40-50); Slide Review Reflex No
--- NOTE | 2022-03-28 11:47 | ED.NURSE ---
Critical lab received: VBG PCO2 80. Dr. Stoddard notified.
[2022-03-28] MEDS: ONDANSETRON 2 MG/ML inj 4 MG IVP (11:52)
[2022-03-28] MEDS: OXYCODONE 5 MG TABLET PO (11:52)
[2022-03-28 11:59] LABS: Albumin* 4.1 g/dL (3.3-5.0); Chloride* 85 mmol/L (96-114); Sodium* 128 mmol/L (135-149)
[2022-03-28 12:00] LABS: Potassium* 3.9 mmol/L (3.6-5.1)
[2022-03-28 12:02] LABS: Alkaline Phosphatase* 110 U/L (40-150); Aspartate Amino Transferase* 39 U/L (12-35); Bilirubin Total* 0.2 mg/dL (0.1-1.5); Carbon Dioxide* 37 mmol/L (20-32); Creatinine* 0.8 mg/dL (0.5-1.5); Est. Creatinine Clearance* 49.72; Estimated Glomerular Filt Rate 83 ml/min; Total Protein* 7.4 g/dL (6.0-8.3)
[2022-03-28 12:03] LABS: Alanine Aminotransferase* 24 U/L (4-35); Blood Urea Nitrogen* 19 mg/dL (7-30); Calcium* 8.5 mg/dL (8.4-10.6); Glucose* 147 mg/dL (60-115)
[2022-03-28 12:07] LABS: C Reactive Protein* < 0.5 mg/dL (0.5-1.0)
[2022-03-28 12:10] VITALS: BP 127/55; PULSE 79; RESP 22; O2SAT 80
[2022-03-28 12:11] LABS: NT Pro B Type NatriureticPept* 726 PG/mL (0-125)
[2022-03-28 12:17] LABS: Troponin I* < 0.01 ng/mL (0.01-0.04)
--- NOTE | 2022-03-28 12:17 | ED.NURSE ---
pt declined bedside commode and o2 to the bathroom. states I do this all the time at home, I know my body. pt did take wheelchair to bathroom. returned to room 55% RA, pt put 1 L o2 back on and sats came up to 85%. while pt sleeping, sats 81-85%. pt states I am not staying in the hospital
[2022-03-28 12:40] LABS: SARS PCR* Negative SARS-CoV-2 (Negative)
== END 2022-03-28 13:13 | disposition home or self-care (01) ==
PROVIDERS: Emergency Provider Family Medicine; PCP Family Medicine
DX: E87.2 Acidosis (principal); J44.9 Chronic obstructive pulmonary disease, unspecified; S90.31XA Contusion of right foot, initial encounter
CPT/HCPCS: 36415; 71046; 73630; 80053; 82803; 83605; 83880; 84484; 85025; 86140; 87635; 93005; 96374; 99284; 99285; A9270; J2405

== ENCOUNTER 2022-03-29 19:35 | Inpatient (IN) | payer OTHER, SELFPAY ==
[2022-03-29] VITALS (12 sets, daily range): BP systolic 94–144; BP diastolic 57–78; PULSE 66–76; RESP 12–14; TEMP 35.6–35.9; O2SAT 79–100; BMI 35.3
--- NOTE | 2022-03-29 | CRLHL7_ITS ---
For Patients: As a result of the Cures Act, medical imaging exams and procedure reports are released immediately into your electronic medical record. You may view this report before your referring provider. If you have questions, please contact your health care provider. INDICATION: Respiratory distress. TECHNIQUE: Chest 1 views. COMPARISON: Chest x-ray from 03/28/2022. FINDINGS: Lungs: Clear lungs. No consolidation. Pleura: No pleural effusion or pneumothorax. Heart and Mediastinum: The cardiomediastinal silhouette is normal. The vessels are unremarkable. Bones: Widening of the right acromioclavicular joint could be from prior Kourtney procedure. Stable healed left lateral rib fracture. Stable lower cervical spine ACDF. IMPRESSION: No acute cardiopulmonary disease. Dictated by Phillip Davenport MD @ 03/29/2022 8:38:13 PM (Electronically Signed)
[2022-03-29 20:04] LABS: HCO3 VBG 40 mmol/L (21-28); PO2 VBG 31.3 mmHG (25-47)
[2022-03-29] MEDS: METHYLPREDNISOLONE SOD SUCC 62.5 MG/ML (125) 125 MG IVP (20:05)
[2022-03-29 20:07] LABS: PCO2 VBG 98 mmHG (40-50)
[2022-03-29] MEDS: IPRAT-ALBUT 0.5-2.5 MG/3 ML NEB 1 NEB IH ×2 (20:17→21:21)
--- NOTE | 2022-03-29 20:22 | ED_ITS ---
HPI - General Adult General Date Seen: 03/29/22 Chief complaint: Shortness of Breath/Dyspnea Stated complaint: Respiratory Distress Source: EMS and old records reviewed Mode of arrival: EMS Limitations: altered mental status History of Present Illness HPI narrative: 62-year-old female with longstanding history of hypoxic and hypercarbic respiratory failure due to heart failure, COPD and sleep apnea presents by ambulance with ongoing respiratory failure. She was seen in the hospital emergency department yesterday. She went home and has come back again today. Patient is unable to give any history due to altered mental status. She has been hospitalized here in December and also 1 month ago. Similar presentation at that time. Paramedics noted that she had a pCO2 of 75 with CO2 monitoring and an O2 sat in the 50s with O2 sat monitoring at home. At the time they arrived she was not on oxygen. She normally uses CPAP at home as well. Code status is DNR DNI. Additional information shows that she was found down and last known well last evening. This was communicated through the hospitalist. She will be admitted for CCU care. Related Data Home Medications Medication Instructions Recorded Confirmed Home Oxygen 03/02/22 03/02/22 alprazolam 0.5 mg tablet (Xanax) 0.5 mg PO BID 03/02/22 03/02/22 aspirin 81 mg chewable tablet 81 mg PO DAILY 03/02/22 03/02/22 budesonide-formoterol HFA 160 2 inh inhalation BID 03/02/22 03/02/22 mcg-4.5 mcg/actuation aerosol inhaler clopidogrel 75 mg tablet (Plavix) 75 mg PO DAILY 03/02/22 03/02/22 escitalopram oxalate 20 mg tablet 20 mg PO DAILY 03/02/22 03/02/22 esomeprazole magnesium 40 mg 40 mg PO DAILY 03/02/22 03/02/22 capsule,delayed release (Nexium) ezetimibe 10 mg tablet (Zetia) 10 mg PO DAILY 03/02/22 03/02/22 glimepiride 1 mg tablet 2 mg PO BID 03/02/22 03/02/22 ipratropium 0.5 mg-albuterol 3 mg 3 ml inhalation Q6-8H PRN 03/02/22 03/02/22 (2.5 mg base)/3 mL nebulization soln isosorbide mononitrate 60 mg 120 mg PO DAILY 03/02/22 03/02/22 tablet,extended release 24 hr levothyroxine 50 mcg tablet 50 mcg PO DAILY 03/02/22 03/02/22 (Synthroid) magnesium oxide 400 mg PO DAILY 03/02/22 03/02/22 meclizine 25 mg tablet 25 mg PO .TID PRN 03/02/22 03/02/22 methocarbamol 500 mg tablet 1,000 mg PO .QHS 03/02/22 03/02/22 metoprolol succinate 50 mg 50 mg PO DAILY 03/02/22 03/02/22 tablet,extended release 24 hr mirtazapine 15 mg tablet 7.5 mg PO .QHS 03/02/22 03/02/22 naloxone 4 mg/actuation nasal spray 4 mg intranasal Q2-3M PRN 03/02/22 03/02/22 nitroglycerin 0.4 mg sublingual 0.4 mg sublingual Q5M 03/02/22 03/02/22 tablet (Nitrostat) ondansetron HCl 4 mg tablet 4 mg PO Q8H PRN 03/02/22 03/03/22 potassium chloride 20 mEq 40 meq PO DAILY 03/02/22 03/02/22 tablet,extended release(part/cryst) prazosin 2 mg capsule 4 mg PO .QHS 03/02/22 03/02/22 rosuvastatin 20 mg tablet (Crestor) 20 mg PO DAILY 03/02/22 03/02/22 sennosides 8.6 mg-docusate sodium 2 tab PO BID 03/02/22 03/03/22 50 mg tablet sertraline 100 mg tablet 50 mg PO DAILY 03/02/22 03/03/22 sodium chloride 0.65 % nasal spray 2 spray intranasal Q2H PRN 03/02/22 03/02/22 aerosol (Nasal [place] (sodium chloride)) tiotropium bromide 18 mcg capsule 1 cap inhalation DAILY 03/02/22 03/02/22 with inhalation device (Spiriva with HandiHaler) torsemide 20 mg tablet 20 mg PO BID-TID 03/02/22 03/02/22 Previous Rx's Medication Instructions Recorded Lasix 20 mg tablet (furosemide) 10 mg PO QAM #1 tab 03/02/22 albuterol sulfate 90 mcg/actuation 2 puff inhalation .Q4H PRN #8.5 03/05/22 aerosol inhaler grams buprenorphine HCl 2 mg sublingual 4 mg sublingual BID #12 tabs 03/05/22 tablet nystatin 500,000 unit tablet 500,000 unit PO QID #20 tabs 03/05/22 prednisone 20 mg tablet 20 mg PO BID #10 tabs 03/05/22 prednisone 20 mg tablet 20 mg PO BID #6 tabs 03/28/22 Allergies Allergy/AdvReac Type Severity Reaction Status Date / Time buprenorphine Allergy Severe respiratory Verified 03/02/22 20:58 distress sumatriptan Allergy Severe Anaphylaxis Verified 03/02/22 20:58 buspirone Allergy Intermediate Rash Verified 03/02/22 20:58 gabapentin Allergy Intermediate gi upset Verified 03/02/22 20:58 niacin Allergy Intermediate Verified 03/02/22 20:58 trazodone Allergy Intermediate Verified 03/02/22 20:58 atorvastatin Allergy Mild myalgia Verified 03/02/22 20:58 codeine Allergy Mild itching Verified 03/02/22 20:58 rizatriptan Allergy Mild Flushing Verified 03/02/22 20:58 Review of Systems Narrative: Unable to obtain [facility] Medical History Acute and chronic respiratory failure ([id number]) Acute confusion Acute hyponatremia Acute on chronic heart failure with preserved ejection fraction Allergic rhinitis due to pollen Anxiety Arthropathy of spinal facet joint Asthma CAD (coronary artery disease) Chest pain Chronic pain syndrome Cluster B personality disorder CO2 retention Congestive heart failure COPD (chronic obstructive pulmonary disease) Diabetes mellitus type 2 in obese Edema GERD (gastroesophageal reflux disease) Graves disease History of nicotine dependence Hyperlipidemia Hypothyroidism Insomnia Leukocytosis Lumbar spinal stenosis Opioid dependence SOCORRO (obstructive sleep apnea) Panic disorder PTSD (post-traumatic stress disorder) Recurrent major depression Refractory migraine Respiratory failure Secondary polycythemia Type 2 diabetes mellitus with circulatory disorder, without long-term current use of insulin Surgical History Failed CABG (coronary artery bypass graft) H/O heart artery stent Social History Narrative: Patient lives alone in [place]. Former smoker. No longer smoking. She does not drink alcohol. Her healthcare power of computer programming supervisor is her future [id number], Mica. code status is DNR. Highest level of school completed/degree received: some college, no degree Smoking Status: Former smoker What tobacco products do you use: cigarettes Smoking quit date/years: <= 15 years ago Do you use any of these nicotine containing products: None Second hand tobacco smoke exposure: No How often do you have a drink containing alcohol: never How often do you have six or more drinks on one occasion: Never AUDIT-C Alcohol total score: 0 Non-prescribed substance use: denies use Caffeine: Yes service: No Exam Narrative: Exam Narrative: She is placed on BiPAP on arrival in the emergency department. She is arousable but falls asleep immediately if undisturbed. She is oriented to her name and place. She does not appear to be in respiratory distress. Small oral airway. No stridor. Respirations with diffuse decreased breath sounds. Bibasilar crackles. Cardiovascular: S1, S2, regular rate and rhythm. Distant heart sounds. Abdomen: Bowel sounds active. Abdomen is soft without tenderness. She has 2+ edema in her face and in her legs. Feet are relatively warm to touch with good pulses and capillary refill. Const: Documenting provider has reviewed patient's vital signs: yes Course Course Hospital Course: BiPAP settings were adjusted to pressures of 15/10. Due to hypoxia was initially on 50% FiO2 but this was dial down to 30% relatively quickly as her O2 sats rebounded into the 90s. Initial venous blood gas shows pH of 7.22 and a pCO2 of 98. DuoNeb, Lasix, Solu-Medrol, [facility] catheter initiated Medical Decision Making Lab Data Labs: Lab Results 03/29/22 Range/Units 19:55 VBG pH 7.220 L* (7.32-7.43) VBG pCO2 98 H* (40-50) mmHG VBG pO2 31.3 (25-47) mmHG VBG HCO3 40 H (21-28) mmol/L Critical Care Time Critical Care Time Critical Care Time: Yes Attestation: The patient required my highest level preparedness to intervene emergently and I personally spent this critical care time directly and personally managing the patient. This critical care time included: Obtaining a history; Examining the patient; Pulse oximetry; Ordering and reviewing of studies; Arranging urgent treatment with development of a management plan; Evaluation of patients response to treatment; Frequent reassessment discussions with other providers. This critical care time was performed to assess and manage the high probability of imminent life-threatening deterioration that could result in multiorgan failure. It was exclusive of separate billable procedures and treating other patients and teaching time. Total Critical Care Time in Minutes: 65 Discharge Plan Discharge Clinical Impression: Respiratory failure, COPD (chronic obstructive pulmonary disease), CO2 retention, Congestive heart failure, Carbon dioxide narcosis Patient Disposition: Admitted As Inpatient Prescriptions: No Action ipratropium-albuterol 0.5 mg-3 mg(2.5 mg base)/3 mL solution for nebulization 3 ml inhalation Q6-8H PRN aspirin 81 mg tablet,chewable 81 mg PO DAILY naloxone 4 mg/actuation spray,non-aerosol 4 mg intranasal Q2-3M PRN Rx Instructions: spray 1 dose into ONE nostril; alternate nostrils w each dose until help arrives sennosides-docusate sodium 8.6-50 mg tablet 2 tab PO BID levothyroxine [Synthroid] 50 mcg tablet 50 mcg PO DAILY rosuvastatin [Crestor] 20 mg tablet 20 mg PO DAILY clopidogrel [Plavix] 75 mg tablet 75 mg PO DAILY budesonide-formoterol 160-4.5 mcg/actuation HFA aerosol inhaler 2 inh inhalation BID nitroglycerin [Nitrostat] 0.4 mg tablet, sublingual 0.4 mg sublingual Q5M Rx Instructions: do not exceed 3 doses per episode Spiriva with HandiHaler 18 mcg capsule, w/inhalation device 1 cap INHALATION DAILY esomeprazole magnesium [Nexium] 40 mg capsule,delayed release(DR/EC) 40 mg PO DAILY ezetimibe [Zetia] 10 mg tablet 10 mg PO DAILY methocarbamol 500 mg tablet 1,000 mg PO .QHS glimepiride 1 mg tablet 2 mg PO BID isosorbide mononitrate 60 mg tablet extended release 24 hr 120 mg PO DAILY magnesium oxide 400 mg magnesium capsule 400 mg PO DAILY potassium chloride 20 mEq tablet,ER particles/crystals 40 meq PO DAILY Nasal [place] (sodium chloride) 0.65 % aerosol,spray 2 spray intranasal Q2H PRN (DME) Home Oxygen Misc See Rx Instructions .ROUTE Rx Instructions: As directed meclizine 25 mg tablet 25 mg PO .TID PRN metoprolol succinate 50 mg tablet extended release 24 hr 50 mg PO DAILY torsemide 20 mg tablet 20 mg PO BID-TID ondansetron HCl 4 mg tablet 4 mg PO Q8H PRN mirtazapine 15 mg tablet 7.5 mg PO .QHS prazosin 2 mg capsule 4 mg PO .QHS sertraline 100 mg tablet 50 mg PO DAILY Rx Instructions: Week 1: 100mg daily, Week 2: 50mg Daily, Week 3: stop Rx ordered 02/01/22 alprazolam [Xanax] 0.5 mg tablet 0.5 mg PO BID escitalopram oxalate 20 mg tablet 20 mg PO DAILY furosemide [Lasix] 20 mg tablet 10 mg PO QAM Qty: 1 0RF prednisone 20 mg tablet 20 mg PO BID Qty: 10 0RF buprenorphine HCl 2 mg tablet, sublingual 4 mg SUBLINGUAL BID Qty: 12 0RF nystatin 500,000 unit tablet 500,000 unit PO QID Qty: 20 0RF albuterol sulfate 90 mcg/actuation HFA aerosol inhaler 2 puff INHALATION .Q4H PRN Qty: 8.5 0RF prednisone 20 mg tablet 20 mg PO BID Qty: 6 0RF Follow Up/Referrals: Moreno Dill MD [Primary Care Provider] -
[2022-03-29] MEDS: FUROSEMIDE 10 MG/ML inj 40 MG IVP (20:27)
[2022-03-29 20:42] LABS: D Dimer Quantitative* 0.37 ug/ml (0.00-0.50)
--- NOTE | 2022-03-29 20:42 | P.IMHP_ITS ---
Hospitalist- H&P: HPI History of Present Illness Time Seen by Provider: 20:10 Date Seen: 03/29/22 Chief complaint: Respiratory Distress Narrative: Meg Monahan is a 62 year old female who was brought in by EMS after being found down at home by [id number] Jackie. Last known well was yesterday evening; patient was seen in the ED for a foot injury and her CO2 is noted to be 80; ER physician recommended hospitalization, but patient refused. She went home and talked with her [id number]-qdx Jackie before going to bed. Today, Jackie had not heard from Meg throughout the day, so she checked on her at 6:20 a.m. this evening. She found her xfyvrx-ay-sts on the floor and minimally responsive. Her CPAP machine was on, laying near the side of the bed. She called EMS, who found patient to have oxygen saturations in the 60% range upon arrival. They initiated BiPAP and brought her to the emergency room. ER Course and Findings: - CO2 98, pH 7.22 - No concerning findings on EKG - Given IV Solumedrol and Lasix - Started on Bipap + nebs - Catheter placed - Zosyn initiated after blood cultures obtained Patient has a long history of hypoxic hypercarbic respiratory failure requiring hospitalization. She has known COPD and SOCORRO, [id number] notes that she starts her night with her CPAP, often removing it senior care through the night. History of non-insulin dependent DM2, last A1C 9.2 (one week ago). History of coronary artery disease, including CABG in 2004 at [facility] with A saphenous vein graft to right coronary artery and a saphenous vein graft to mid LAD. She also had stenting of the [place] LAD and stenting to the vein graft to the right coronary artery in 2019, and in 2020 she had another drug-eluting stent placed in the mid LAD secondary to InStent restenosis. She follows with the [facility]. Last TTE in 03/2021 and exhibited normal LV size and wall thickness, EF 72%. In addition, she has a history of chronic pain. She sees the [facility] pain clinic. Per the IT COMMUNICATIONS SPECIALIST, she monthly receives: - 30 tablets of Morphine 15mg - 90 doses of Buprenorphine 2mg - 90 tablets of Oxycodone-APAP 7.5-325mg - 60 tabs of 0.5mg Alprazolam (per psych, Dr. Reeves) Meg lives alone in an apartment, on disability. She smokes 2-3 cigarettes per day, no alcohol use, no drug use besides prescription medications. Has 3 sons, son Rolf is engaged to Jackie ([phone]) who is primary contact and medical decision maker if needed. Meg never wants to be intubated, she states this during our interview and Jackie notes that she has stated this in the past as well. Review of Systems Status of ROS: Reports: unobtainable due to medical condition Narrative: Patient wearing BiPAP, so ROS is limited. She is unable to tell me what medications she is taking regularly. [facility] Medical History (Updated 03/29/22 @ 23:10 by Amena Park MD) Acute and chronic respiratory failure ([id number]-[id number]) Acute confusion Acute hyponatremia Acute on chronic heart failure with preserved ejection fraction Allergic rhinitis due to pollen Anxiety Arthropathy of spinal facet joint Asthma CAD (coronary artery disease) Chest pain Chronic pain syndrome Cluster B personality disorder CO2 retention Congestive heart failure COPD (chronic obstructive pulmonary disease) Diabetes mellitus type 2 in obese Edema GERD (gastroesophageal reflux disease) Graves disease History of nicotine dependence Hyperlipidemia Hypothyroidism Insomnia Leukocytosis Lumbar spinal stenosis Opioid dependence SOCORRO (obstructive sleep apnea) Panic disorder PTSD (post-traumatic stress disorder) Recurrent major depression Refractory migraine Respiratory failure Secondary polycythemia Type 2 diabetes mellitus with circulatory disorder, without long-term current use of insulin Surgical History Failed CABG (coronary artery bypass graft) H/O heart artery stent Social History Narrative: Patient lives alone in [place]. Former smoker. No longer smoking. She does not drink alcohol. Her healthcare power of disability attorney is her future [id number], Mica. code status is DNR. Highest level of school completed/degree received: some college, no degree Smoking Status: Former smoker What tobacco products do you use: cigarettes Smoking quit date/years: <= 15 years ago Do you use any of these nicotine containing products: None Second hand tobacco smoke exposure: No How often do you have a drink containing alcohol: never How often do you have six or more drinks on one occasion: Never AUDIT-C Alcohol total score: 0 Non-prescribed substance use: denies use Caffeine: Yes service: No Meds Home Medications and Allergies Home Medications Medication Instructions Recorded Confirmed Type Home Oxygen 03/02/22 03/02/22 History alprazolam 0.5 mg tablet (Xanax) 0.5 mg PO BID 03/02/22 03/29/22 History aspirin 81 mg chewable tablet 81 mg PO DAILY 03/02/22 03/29/22 History budesonide-formoterol HFA 160 2 inh inhalation BID 03/02/22 03/29/22 History mcg-4.5 mcg/actuation aerosol inhaler clopidogrel 75 mg tablet (Plavix) 75 mg PO DAILY 03/02/22 03/29/22 History escitalopram oxalate 20 mg tablet 20 mg PO DAILY 03/02/22 03/29/22 History esomeprazole magnesium 40 mg 40 mg PO DAILY 03/02/22 03/29/22 History capsule,delayed release (Nexium) ezetimibe 10 mg tablet (Zetia) 10 mg PO DAILY 03/02/22 03/29/22 History glimepiride 1 mg tablet 2 mg PO BID 03/02/22 03/29/22 History ipratropium 0.5 mg-albuterol 3 mg 3 ml inhalation Q6-8H PRN 03/02/22 03/29/22 History (2.5 mg base)/3 mL nebulization soln isosorbide mononitrate 60 mg 120 mg PO DAILY 03/02/22 03/29/22 History tablet,extended release 24 hr levothyroxine 50 mcg tablet 50 mcg PO DAILY 03/02/22 03/29/22 History (Synthroid) magnesium oxide 400 mg PO DAILY 03/02/22 03/29/22 History meclizine 25 mg tablet 25 mg PO .TID PRN 03/02/22 03/29/22 History methocarbamol 500 mg tablet 1,000 mg PO .QHS 03/02/22 03/29/22 History metoprolol succinate 50 mg 50 mg PO DAILY 03/02/22 03/29/22 History tablet,extended release 24 hr mirtazapine 15 mg tablet 7.5 mg PO .QHS 03/02/22 03/29/22 History naloxone 4 mg/actuation nasal spray 4 mg intranasal Q2-3M PRN 03/02/22 03/29/22 History nitroglycerin 0.4 mg sublingual 0.4 mg sublingual Q5M 03/02/22 03/29/22 History tablet (Nitrostat) ondansetron HCl 4 mg tablet 4 mg PO Q8H PRN 03/02/22 03/29/22 History potassium chloride 20 mEq 40 meq PO DAILY 03/02/22 03/29/22 History tablet,extended release(part/cryst) prazosin 2 mg capsule 4 mg PO .QHS 03/02/22 03/29/22 History rosuvastatin 20 mg tablet (Crestor) 20 mg PO DAILY 03/02/22 03/29/22 History sennosides 8.6 mg-docusate sodium 2 tab PO BID 03/02/22 03/29/22 History 50 mg tablet sertraline 100 mg tablet 50 mg PO DAILY 03/02/22 03/29/22 History sodium chloride 0.65 % nasal spray 2 spray intranasal Q2H PRN 03/02/22 03/29/22 History aerosol (Nasal [place] (sodium chloride)) tiotropium bromide 18 mcg capsule 1 cap inhalation DAILY 03/02/22 03/29/22 History with inhalation device (Spiriva with HandiHaler) torsemide 20 mg tablet 20 mg PO BID-TID 03/02/22 03/29/22 History Home Medication Comments: Not able to confirm with patient, currently states that typically patient does her own medications without assistance. Allergies Allergy/AdvReac Type Severity Reaction Status Date / Time buprenorphine Allergy Severe respiratory Verified 03/02/22 20:58 distress sumatriptan Allergy Severe Anaphylaxis Verified 03/02/22 20:58 buspirone Allergy Intermediate Rash Verified 03/02/22 20:58 gabapentin Allergy Intermediate gi upset Verified 03/02/22 20:58 niacin Allergy Intermediate Verified 03/02/22 20:58 trazodone Allergy Intermediate Verified 03/02/22 20:58 atorvastatin Allergy Mild myalgia Verified 03/02/22 20:58 codeine Allergy Mild itching Verified 03/02/22 20:58 rizatriptan Allergy Mild Flushing Verified 03/02/22 20:58 Exam Narrative: Exam Narrative: GEN: Patient is laying in bed and wearing BiPAP. She answers yes and no questions appropriately. She is tachypneic. HEENT: Eyelids are bilaterally edematous without erythema. EOMIs bilaterally, no scleral icterus CV: Exam limited by BIPAP, but no concerning murmurs, rubs, or gallops R: Wheezing throughout air palacio Ext: wwp, no concerning edema Skin: No concerning skin lesions or rashes on exposed skin Neuro: Nonfocal Psych: Appropriate Assessment and Plan Assessment and plan (1) Respiratory failure: Problem comment: improved Status: Acute (2) COPD (chronic obstructive pulmonary disease): Problem comment: Breathing improved with nebulizer treatment and prednisone Status: Acute (3) Carbon dioxide narcosis: Status: Acute (4) CO2 retention: Problem comment: baseline pCO2 admission was 70 with a normal pH suggesting chronicity. Weaning her oxygen to 1 L per nasal cannula has gotten her pCO2 down to 53. Recommend limiting home oxygen to 1 L per nasal cannula Status: Acute (5) Chronic narcotic use: Problem comment: Increased buprenorphine. Recommending avoiding pure opioid agonists Status: Acute (6) Hypoxia: Problem comment: due to COPD exacerbation and hypoventilation from sleep apnea and opioid and benzodiazepine use. Patient does not tolerate significant oxygen supplementation. At 1 L per nasal cannula she has an acceptable level of CO2 retention. oxygen saturations in the upper 80s are probably her baseline. Status: Acute (7) Edema: Status: Acute (8) Polypharmacy: Status: Acute (9) Coronary artery disease: Status: Acute (10) Hyponatremia: Status: Acute (11) Hyperkalemia: Status: Acute Plan 62-year-old female with acute on chronic hypercarbic hypoxic respiratory failure: 1. Respiratory failure: Multifactorial given patient's history of COPD, SOCORRO, chronic hypercarbia, chronic narcotic and benzodiazepine use. She has improved objectively and subjectively after BiPAP administration in the emergency room. We will continue this, respiratory therapy has been consulted. Treat COPD exacerbation with IV Solu-Medrol and Zosyn. Her narcotic use is concerning, given comorbidities. We will hold her morphine, decrease her oxycodone, continue her Buprenorphine, and will fax a copy of H&P to [facility]. We are holding the majority of her home medications at this time, given decreased po intake while on BiPAP. Anticipate resuming many of these in the morning. 2. History of CAD with edema that is concerning for acute CHF exacerbation: EKG in the emergency room was reassuring, troponin negative. Continue IV Lasix, close monitoring of Is/Os. We will continue to follow troponins and keep patient on telemetry. TTE ordered. 3. Poorly controlled [id number]-ealenvnmm DM2: Accu-Cheks and sliding scale insulin. 4. Lab abnormalities: Hyponatremia, hyperkalemia, elevated ALT and AST, hyperglycemia. Anticipate that hyperkalemia will improve with administration of Lasix, we will also hold her home potassium supplementation. Hyponatremia is mild, with an outpatient sodium baseline of 134-138. Will continue to follow, initiate fluid restriction if necessary. Follow Accu-Cheks with sliding scale insulin, follow LFTs. 5. Deconditioning: PT, OT, and social work consult placed. Discussed with Jackie that patient will likely need more assistance upon discharge. 6. Prophylaxis: Lovenox 7. DNR/DNI status as requested by patient. Discussed tenuous status with [id number] Jackie, questions answered.
--- NOTE | 2022-03-29 20:43 | W.PC.EDHO ---
Primary Language: Preferred Language: Orientation Status: [x] Alert & Oriented [] Slight Confusion [] Known Dx Dementia Transfers By: [] Assist of 1 [] Assist of 2 [x] Lift Active Medications Discontinued Medications Generic Name Dose Route Start Last Admin Trade Name Freq PRN Reason Stop Dose Admin Albuterol/Ipratropium 1 neb 03/29/22 19:48 03/29/22 20:17 Iprat-Albut 0.5-2.5 Mg/3 Ml Neb IH 03/29/22 19:49 1 neb ONCE ONE Administration Furosemide 40 mg 03/29/22 19:48 03/29/22 20:27 Furosemide 10 Mg/Ml Inj IVP 03/29/22 19:49 40 mg ONCE ONE Administration Methylprednisolone Sodium Succinate 125 mg 03/29/22 19:48 03/29/22 20:05 Methylprednisolone Sod Succ 62.5 Mg/Ml (125) IVP 03/29/22 19:49 125 mg ONCE ONE Administration Cardiac Monitoring EKG Method 12 Lead EKG Method 12 Lead
[2022-03-29 20:53] LABS: Chloride* 87 mmol/L (96-114)
[2022-03-29 20:54] LABS: Potassium* 5.6 mmol/L (3.6-5.1); Sodium* 128 mmol/L (135-149)
[2022-03-29 20:56] LABS: Creatinine* 0.6 mg/dL (0.5-1.5); Estimated Glomerular Filt Rate 101 ml/min
[2022-03-29 20:57] LABS: Alanine Aminotransferase* 38 U/L (4-35); Alkaline Phosphatase* 116 U/L (40-150); Aspartate Amino Transferase* 69 U/L (12-35); Bilirubin Total* 0.3 mg/dL (0.1-1.5); Blood Urea Nitrogen* 17 mg/dL (7-30); Calcium* 8.5 mg/dL (8.4-10.6); Carbon Dioxide* 39 mmol/L (20-32); Creatine Kinase* 93 U/L (41-117); Glucose* 232 mg/dL (60-115); Total Protein* 7.2 g/dL (6.0-8.3)
[2022-03-29 20:58] LABS: PCR FLU A Negative PCR FLU A (Negative); PCR FLU B Negative PCR FLU B (Negative); PCR RSV Negative PCR RSV (Negative)
[2022-03-29 21:00] LABS: C Reactive Protein* 1.1 mg/dL (0.5-1.0)
[2022-03-29 21:06] LABS: NT Pro B Type NatriureticPept* 3940 PG/mL (0-125)
[2022-03-29 21:09] LABS: Troponin I* 0.02 ng/mL (0.01-0.04)
[2022-03-29 21:14] LABS: Procalcitonin* 0.04 ng/mL (<0.50)
[2022-03-29 21:37] LABS: SARS PCR* Negative SARS-CoV-2 (Negative)
[2022-03-29 22:01] LABS: HCO3 VBG 39 mmol/L (21-28); PO2 VBG 27.4 mmHG (25-47); pH VBG 7.327 (7.32-7.43)
[2022-03-29 22:03] LABS: Basophils Percent Auto 0.3 % (0.0-3.0); Hemoglobin* 13.8 gm/dL (12.0-16.0); Immature Granulocytes Abs Auto 0.16 K/uL (0.00-0.30); Lymphocytes Percent Auto 6.8 % (20-44); Mean Corpuscular HGB Conc 31 gm/dL (32-36); Mean Corpuscular Hemoglobin 31 pg (26-34); Mean Corpuscular Volume 99 fL (80-100); Neutrophils Percent Auto 84.5 % (42.0-72.0); Platelet Count* 250 K/uL (140-440); RDW Coefficient of Variation % 14.1 % (11.5-15.5); Red Blood Count 4.45 m/uL (4.00-5.20); White Blood Count* 11.49 K/uL (4.50-11.00)
[2022-03-29 22:05] LABS: Slide Review Reflex No
[2022-03-29 22:10] LABS: PCO2 VBG 74 mmHG (40-50)
[2022-03-29 22:36] LABS: Appearance Urine Clear (Clear); Bilirubin Urine Negative (Negative); Blood Urine Negative (Negative); Color Urine Yellow (Yellow); Glucose Urine 1+ (Negative); Ketones Urine Negative (Negative); Leukocyte Esterase Urine 1+ (Negative); Nitrite Urine Negative (Negative); Protein Urine Negative (Negative); Specific Gravity Urine 1.015 (1.000-1.030); Urobilinogen Urine 0.2 (0.2-1.0)
[2022-03-29 22:39] LABS: Troponin I* 0.04 ng/mL (0.01-0.04)
[2022-03-29 23:23] LABS: Bacteria Urine Moderate; Mucus Urine Few; RBC Urine 0-2 (0-2); Squamous Epithelial Cell Urine Moderate (None-Few)
[2022-03-30] VITALS (10 sets, daily range): BP systolic 103–134; BP diastolic 66–79; PULSE 73–99; RESP 13–18; TEMP 36.2–37.2; O2SAT 89–92
[2022-03-30] MEDS: PIPERACILLIN/TAZOBACTAM 3.375 GM in 0.9 % SODIUM CHLORIDE Mini-bag 100 ML IVPB ×4 (00:36→19:38)
[2022-03-30] MEDS: 0.9 % SODIUM CHLORIDE 250 ml IV (00:36)
--- NOTE | 2022-03-30 01:26 | PC.NURSE ---
Addendum entered by Aubrey Landis RN 03/30/22 05:41: Pt wakes up this AM for a little, seems pretty confused, mask removed to reestablish fit, sat at edge of bed not making a lot of sense, seems not steady, reapplied mask and then back to sleep Addendum entered by Aubrey Landis RN 03/30/22 02:07: Correction: Spoke w/Dr. Park about maybe getting an order for a UTox Original Note: Admitted to room CCU2 at 2210. Arrived on BiPAP FiO2 35% with [facility] catheter in place. BPs 98/72, O2 sats around 90% on FiO2 35%. Tele NSR. Lungs diminished, occ moist cough after she woke up some. Pt has been pretty much sleepy, non verbal and does not indicate any level of orientation after break from BiPAP for a drink of water and oral cares. Was a little obtunded but is now more awake but still pretty much nonverbal and seems to be a little tremulous to the arms and is pulling on things randomly and needs encouragement to stay in bed. Has bruising to right hip/leg and foot and scattered to arms and abdomen. Pt had a lot of crusted white matter on lips so oral cares done. Found some unidentified liquid vials in personal belongings along with 1 cigarette and some vaping supplies that were locked up. Dr. Park was notified and order put in for UTox.
[2022-03-30] MEDS: METHYLPREDNISOLONE SOD SUCC 62.5 MG/ML (125) 125 MG IVP (01:53)
[2022-03-30] MEDS: SODIUM CHLORIDE 0.9 % (FLUSH) 10 ML SYRINGE 5 ML IVF ×3 (01:54→20:21)
[2022-03-30 07:09] LABS: HCO3 VBG 36 mmol/L (21-28); PCO2 VBG 57 mmHG (40-50); PO2 VBG 67.5 mmHG (25-47); pH VBG 7.416 (7.32-7.43)
[2022-03-30 07:18] LABS: Basophils Percent Auto 0.1 % (0.0-3.0); Hematocrit 43.5 % (33.0-51.0); Immature Granulocytes Abs Auto 0.12 K/uL (0.00-0.30); Lymphocytes Percent Auto 3.2 % (20-44); Mean Corpuscular HGB Conc 32 gm/dL (32-36); Mean Corpuscular Hemoglobin 31 pg (26-34); Mean Corpuscular Volume 96 fL (80-100); Neutrophils Percent Auto 94.8 % (42.0-72.0); Platelet Count* 153 K/uL (140-440); RDW Coefficient of Variation % 13.6 % (11.5-15.5); Red Blood Count 4.52 m/uL (4.00-5.20); White Blood Count* 13.24 K/uL (4.50-11.00)
[2022-03-30 07:54] LABS: Albumin* 3.9 g/dL (3.3-5.0); Chloride* 90 mmol/L (96-114); Sodium* 130 mmol/L (135-149)
[2022-03-30 07:56] LABS: Creatinine* 0.5 mg/dL (0.5-1.5); Est. Creatinine Clearance* 49.72; Estimated Glomerular Filt Rate 105 ml/min
[2022-03-30 07:57] LABS: Alanine Aminotransferase* 36 U/L (4-35); Alkaline Phosphatase* 119 U/L (40-150); Aspartate Amino Transferase* 49 U/L (12-35); Bilirubin Total* 0.5 mg/dL (0.1-1.5); Blood Urea Nitrogen* 13 mg/dL (7-30); Carbon Dioxide* 34 mmol/L (20-32)
[2022-03-30 07:58] LABS: Calcium* 8.5 mg/dL (8.4-10.6); Glucose* 236 mg/dL (60-115); Slide Review Reflex No
[2022-03-30 08:00] LABS: C Reactive Protein* 1.3 mg/dL (0.5-1.0)
[2022-03-30 08:03] LABS: NT Pro B Type NatriureticPept* 3900 PG/mL (0-125)
[2022-03-30 08:07] LABS: Troponin I* 0.04 ng/mL (0.01-0.04)
--- NOTE | 2022-03-30 08:49 | REH.OT ---
Per hospitalist, patient is not medically appropriate for PT/OT evaluations today. Will reassess appropriateness on 03/31/22.
[2022-03-30] MEDS: SERTRALINE 100 MG TABLET 50 MG PO (08:53)
[2022-03-30] MEDS: ESCITALOPRAM 10 MG TABLET 20 MG PO (09:05)
[2022-03-30] MEDS: predniSONE 20 MG TABLET 60 MG PO (09:22)
[2022-03-30] MEDS: CLOPIDOGREL 75 MG TABLET PO (09:23)
[2022-03-30] MEDS: buprenorphine HCL 2 MG TAB.SUBL SL ×3 (09:23→20:18)
[2022-03-30] MEDS: IPRAT-ALBUT 0.5-2.5 MG/3 ML NEB 1 NEB IH ×3 (09:26→20:19)
[2022-03-30] MEDS: LORazepam 0.5 MG TABLET PO ×3 (09:30→21:49)
--- NOTE | 2022-03-30 10:18 | PM.IMPN1 ---
Progress Note: A&P Assessment and plan (1) Respiratory failure: Problem details: improved Status: Acute Assessment and Plan: Primarily appears to be COPD and hypoventilation with hypoxia and CO2 narcosis. Continue BiPAP, systemic steroids and nebulizer treatments. Wean down opioids and benzodiazepines (2) Hyperkalemia: Status: Acute Assessment and Plan: Continue to monitor and treat (3) Hyponatremia: Status: Acute Assessment and Plan: Continue to monitor and treat (4) Coronary artery disease: Status: Acute Assessment and Plan: No current evidence for ACS (5) Polypharmacy: Status: Acute Assessment and Plan: Wean off opiates and benzodiazepines (6) Type 2 diabetes mellitus with circulatory disorder, without long-term current use of insulin: Status: Acute Assessment and Plan: Continue to monitor and treat (7) SOCORRO (obstructive sleep apnea): Status: Acute Assessment and Plan: Attempt to transition to home CPAP treatment prior to discharge (8) Carbon dioxide narcosis: Status: Acute Assessment and Plan: Cautious administration of oxygen. In the past she has not tolerated more than 1 L per nasal cannula without fairly severe CO2 retention (9) COPD (chronic obstructive pulmonary disease): Problem details: Status: Acute Assessment and Plan: Acute on chronic (10) Chronic pain: Problem details: increased buprenorphine to 4 mg twice daily and stopped MS Contin and Percocet. She has done okay with this in the last 2 days. Status: Acute Assessment and Plan: Transition to buprenorphine without opioid agonists and minimize benzodiazepines (11) Chronic narcotic use: Problem details: Status: Acute Assessment and Plan: Transition to buprenorphine alone no open a diagnosis. Minimize benzodiazepines to minimize respiratory depression Time Spent With Patient Total time spent: Total time spent today is 70 minutes in critical care evaluation and treatment. Subjective Date Seen: 03/30/22 Interval history: 62-year-old female admitted to the hospital with respiratory failure. She is DNR/DNI. This is the 3rd hospital admission with respiratory failure in the last 3 months. On each occasion she was found obtunded with hypercarbic and hypoxic respiratory failure. She has responded well to BiPAP, corticosteroids and management of heart failure. On this admission it appeared that COPD exacerbation was the primary underlying problem. Overnight she was initiated on treatment for heart failure, pneumonia and COPD. She has been on BiPAP overnight. Improvement in her oxygenation and blood gas. She has been resting fairly well during the night. Patient has a history of substance use disorder. She is on chronic opioid therapy and chronic benzodiazepine therapy. Now on buprenorphine as well. Patient is still minimally verbal today not answering questions or giving much history today. Exam Narrative: Exam Narrative: She is sleeping but arouses to voice. She is wearing BiPAP. She appears comfortable with the mask in place. She follows simple commands fairly well. Respirations with decreased breath sounds throughout. A rare basilar crackle is noted. Cardiovascular: S1, S2, regular rate and rhythm. Abdomen: Bowel sounds active. Abdomen is soft without tenderness or mass. Extremities with 1+ edema. Const: Vital Signs, click to edit/add: Vital Signs - 24 hr 03/29/22 22:30 03/29/22 22:56 03/29/22 23:01 Temperature 96.6 F L Pulse Rate Pulse Rate [Left A pical] 70 Pulse Rate [Left P ulse Oximeter] Respiratory Rate 12 12 Blood Pressure [Ri ght Arm] 109/65 Blood Pressure [Ri ght Upper Arm] Pulse Oximetry 88 89 Oxygen Delivery Me thod BiPAP BiPAP BiPAP Oxygen Flow Rate Fraction of Inspir ed Oxygen 35 35 35 03/29/22 23:21 03/29/22 21:20 03/29/22 21:10 Temperature 96.1 F L Pulse Rate Pulse Rate [Left A pical] 76 Pulse Rate [Left P ulse Oximeter] 66 66 Respiratory Rate 14 12 12 Blood Pressure [Ri ght Arm] 97/70 Blood Pressure [Ri ght Upper Arm] 140/72 H 144/78 H Pulse Oximetry 92 92 79 L Oxygen Delivery Me thod BiPAP BiPAP BiPAP Oxygen Flow Rate 30 20 Fraction of Inspir ed Oxygen 03/29/22 21:00 03/29/22 20:50 03/29/22 20:40 Temperature Pulse Rate Pulse Rate [Left A pical] Pulse Rate [Left P ulse Oximeter] 66 66 Respiratory Rate 12 12 12 Blood Pressure [Ri ght Arm] Blood Pressure [Ri ght Upper Arm] 94/73 103/57 L 113/60 Pulse Oximetry 84 L 85 L 83 L Oxygen Delivery Me thod BiPAP BiPAP BiPAP Oxygen Flow Rate 25 30 30 Fraction of Inspir ed Oxygen 03/29/22 20:30 03/29/22 20:00 03/29/22 19:55 Temperature Pulse Rate Pulse Rate [Left A pical] Pulse Rate [Left P ulse Oximeter] 66 66 67 Respiratory Rate 12 12 12 Blood Pressure [Ri ght Arm] Blood Pressure [Ri ght Upper Arm] 121/65 115/61 133/69 Pulse Oximetry 85 L 85 L 100 Oxygen Delivery Me thod BiPAP BiPAP BiPAP Oxygen Flow Rate 35 35 30 Fraction of Inspir ed Oxygen 03/29/22 23:38 03/30/22 02:10 03/30/22 04:03 Temperature 97.1 F L Pulse Rate 73 Pulse Rate [Left A pical] 73 76 Pulse Rate [Left P ulse Oximeter] Respiratory Rate 15 13 Blood Pressure [Ri ght Arm] 103/66 109/74 Blood Pressure [Ri ght Upper Arm] Pulse Oximetry 89 91 Oxygen Delivery Me thod BiPAP BiPAP Oxygen Flow Rate Fraction of Inspir ed Oxygen 03/30/22 05:42 03/30/22 07:00 Temperature 98.4 F Pulse Rate Pulse Rate [Left A pical] 77 84 Pulse Rate [Left P ulse Oximeter] Respiratory Rate 16 Blood Pressure [Ri ght Arm] 116/79 134/74 Blood Pressure [Ri ght Upper Arm] Pulse Oximetry 92 90 Oxygen Delivery Me thod BiPAP BiPAP Oxygen Flow Rate Fraction of Inspir ed Oxygen 35 30 Documenting provider has reviewed patient's vital signs: yes Labs Labs: Laboratory Results - last 24 hr 03/29/22 03/29/22 03/29/22 19:55 19:55 19:55 WBC 11.49 H RBC 4.45 Hgb 13.8 Hct 44.0 MCV 99 MCH 31 MCHC 31 L RDW Coeff of Renetta 14.1 Plt Count 250 Neut % (Auto) 84.5 H Lymph % (Auto) 6.8 L [place] % (Auto) 7.0 Eos % (Auto) 0.0 Baso % (Auto) 0.3 Neut # (Auto) 9.70 H Lymph # (Auto) 0.80 L [place] # (Auto) 0.80 Eos # (Auto) 0.00 Baso # (Auto) 0.00 Abs Immat Gran (auto) 0.16 D-Dimer Quant (PE/DVT) 0.37 VBG pH VBG pCO2 VBG pO2 VBG HCO3 Sodium 128 L Potassium 5.6 H Chloride 87 L Carbon Dioxide 39 H BUN 17 Creatinine 0.6 Estimated Creat Clear Estimated GFR 101 Glucose 232 H Lactate Calcium 8.5 Total Bilirubin 0.3 AST 69 H ALT 38 H Alkaline Phosphatase 116 Total Creatine Kinase 93 Troponin I 0.02 C-Reactive Protein 1.1 H NT-Pro-B Natriuret Pep 3940 H Total Protein 7.2 Albumin 4.0 Procalcitonin 0.04 Urine Color Urine Appearance Urine pH Ur Specific [place] Urine Protein Urine Glucose (UA) Urine Ketones Urine Blood Urine Nitrite Urine Bilirubin Urine Urobilinogen Ur Leukocyte Esterase Urine RBC Urine WBC Ur Squamous Epith Cells Urine Bacteria Urine Mucus SARS-CoV-2 (PCR) Influenza Type A (PCR) Influenza Type B (PCR) RSV (PCR) 03/29/22 03/29/22 03/29/22 19:55 20:10 21:50 WBC RBC Hgb Hct MCV MCH MCHC RDW Coeff of Renetta Plt Count Neut % (Auto) Lymph % (Auto) [place] % (Auto) Eos % (Auto) Baso % (Auto) Neut # (Auto) Lymph # (Auto) [place] # (Auto) Eos # (Auto) Baso # (Auto) Abs Immat Gran (auto) D-Dimer Quant (PE/DVT) VBG pH 7.220 L* 7.327 VBG pCO2 98 H* 74 H* VBG pO2 31.3 27.4 VBG HCO3 40 H 39 H Sodium Potassium Chloride Carbon Dioxide BUN Creatinine Estimated Creat Clear Estimated GFR Glucose Lactate 1.0 Calcium Total Bilirubin AST ALT Alkaline Phosphatase Total Creatine Kinase Troponin I C-Reactive Protein NT-Pro-B Natriuret Pep Total Protein Albumin Procalcitonin Urine Color Urine Appearance Urine pH Ur Specific [place] Urine Protein Urine Glucose (UA) Urine Ketones Urine Blood Urine Nitrite Urine Bilirubin Urine Urobilinogen Ur Leukocyte Esterase Urine RBC Urine WBC Ur Squamous Epith Cells Urine Bacteria Urine Mucus SARS-CoV-2 (PCR) Negative SARS-CoV-2 Influenza Type A (PCR) Negative PCR FLU A Influenza Type B (PCR) Negative PCR FLU B RSV (PCR) Negative PCR RSV 03/29/22 03/29/22 03/29/22 21:50 21:50 22:00 WBC RBC Hgb Hct MCV MCH MCHC RDW Coeff of Renetta Plt Count Neut % (Auto) Lymph % (Auto) [place] % (Auto) Eos % (Auto) Baso % (Auto) Neut # (Auto) Lymph # (Auto) [place] # (Auto) Eos # (Auto) Baso # (Auto) Abs Immat Gran (auto) D-Dimer Quant (PE/DVT) VBG pH Cancelled VBG pCO2 Cancelled VBG pO2 Cancelled VBG HCO3 Cancelled Sodium Potassium Chloride Carbon Dioxide BUN Creatinine Estimated Creat Clear Estimated GFR Glucose Lactate Calcium Total Bilirubin AST ALT Alkaline Phosphatase Total Creatine Kinase Troponin I 0.04 C-Reactive Protein NT-Pro-B Natriuret Pep Total Protein Albumin Procalcitonin Urine Color Yellow Urine Appearance Clear Urine pH 6.0 Ur Specific [place] 1.015 Urine Protein Negative Urine Glucose (UA) 1+ A Urine Ketones Negative Urine Blood Negative Urine Nitrite Negative Urine Bilirubin Negative Urine Urobilinogen 0.2 Ur Leukocyte Esterase 1+ A Urine RBC 0-2 Urine WBC 5-10 A Ur Squamous Epith Cells Moderate A Urine Bacteria Moderate A Urine Mucus Few A SARS-CoV-2 (PCR) Influenza Type A (PCR) Influenza Type B (PCR) RSV (PCR) 03/30/22 03/30/22 03/30/22 06:45 06:45 06:45 WBC 13.24 H RBC 4.52 Hgb 14.0 Hct 43.5 MCV 96 MCH 31 MCHC 32 RDW Coeff of Renetta 13.6 Plt Count 153 Neut % (Auto) 94.8 H Lymph % (Auto) 3.2 L [place] % (Auto) 1.0 Eos % (Auto) 0.0 Baso % (Auto) 0.1 Neut # (Auto) 12.60 H Lymph # (Auto) 0.40 L [place] # (Auto) 0.10 Eos # (Auto) 0.00 Baso # (Auto) 0.00 Abs Immat Gran (auto) 0.12 D-Dimer Quant (PE/DVT) VBG pH 7.416 VBG pCO2 57 H VBG pO2 67.5 H VBG HCO3 36 H Sodium 130 L Potassium 5.0 Chloride 90 L Carbon Dioxide 34 H BUN 13 Creatinine 0.5 Estimated Creat Clear 49.72 Estimated GFR 105 Glucose 236 H Lactate Calcium 8.5 Total Bilirubin 0.5 AST 49 H ALT 36 H Alkaline Phosphatase 119 Total Creatine Kinase Troponin I 0.04 C-Reactive Protein 1.3 H NT-Pro-B Natriuret Pep 3900 H Total Protein 7.0 Albumin 3.9 Procalcitonin Urine Color Urine Appearance Urine pH Ur Specific [place] Urine Protein Urine Glucose (UA) Urine Ketones Urine Blood Urine Nitrite Urine Bilirubin Urine Urobilinogen Ur Leukocyte Esterase Urine RBC Urine WBC Ur Squamous Epith Cells Urine Bacteria Urine Mucus SARS-CoV-2 (PCR) Influenza Type A (PCR) Influenza Type B (PCR) RSV (PCR)
[2022-03-30] MEDS: TORSEMIDE 5 MG TABLET 20 MG PO (11:29)
--- NOTE | 2022-03-30 17:34 | PC.SOCIAL ---
Social work: Received call from pt's [facility] Customer Service Cashier, Monse, . Monse states she has not met pt in person but has talked with her by phone. Monse states pt has never accepted any assistance in her home and has never been interested in talking about moving into a higher level of care. Monse offered assstance with discharge planning if pt is open to increased services at discharge. general farmworker to follow up as needed.
--- NOTE | 2022-03-30 19:33 | PC.NURSE ---
Patient tolerated the BiPap today for periods of time. Pt on RA when off the BiPap. Sats maintained 88% and above. Pt remains non-coherent. Unable to appropriately answer questions. Can answer yes/no questions however seems to answer yes to almost all questions that are asked. Patient very impulsive at times during the day. Sitting up and standing independent however is unable to follow direction. Bed alarm, slipper socks, PRN sitter in place to try and prevent falls. Urine output from jenkins catheter has pink tinge due to being pulled throughout the shift due to patient's impulsiveness. Ativan given PRN every [address] Floyd updated on patient status. Order was received for CT scan. Unable to obtain a proper scan due to restlessness.
[2022-03-30] MEDS: OXYCODONE 5 MG TABLET 2.5 MG PO (20:15)
[2022-03-30] MEDS: ENOXAPARIN 40 MG/0.4 ML INJ SUBCUT (20:18)
[2022-03-31] VITALS (8 sets, daily range): BP systolic 106–136; BP diastolic 60–81; PULSE 81–92; RESP 15–20; TEMP 36.4–37; O2SAT 88–93
[2022-03-31] MEDS: OXYCODONE 5 MG TABLET 2.5 MG PO (00:16)
[2022-03-31] MEDS: LORazepam 0.5 MG TABLET PO ×4 (04:06→21:34)
--- NOTE | 2022-03-31 06:02 | PC.NURSE ---
Pt was very restless and anxious this night. Confused to place and situation and not making sense when talking. Pt would suddenly get up from bed and would be completely disoriented. Had to monitored 1:1 for safety concern. Pt was uncooperative with Bipap and refused to wear half the night. RN was able to apply Bipap from 0300 til morning. Pt maintained O2 from 85-91% on room air even when while sleeping. O2 was 88-93% on Bipap. Pt voiding via [facility] pink/red urine.
[2022-03-31] MEDS: OMEPRAZOLE 20 MG CAPSULE DR 40 MG PO (06:37)
[2022-03-31] MEDS: LEVOTHYROXINE 50 MCG TABLET PO (06:38)
[2022-03-31 07:00] LABS: HCO3 VBG 38 mmol/L (21-28); PCO2 VBG 50 mmHG (40-50); PO2 VBG 68.4 mmHG (25-47); pH VBG 7.492 (7.32-7.43)
[2022-03-31 07:08] LABS: Basophils Percent Auto 0.2 % (0.0-3.0); Hematocrit 41.7 % (33.0-51.0); Hemoglobin* 13.4 gm/dL (12.0-16.0); Immature Granulocytes Abs Auto 0.22 K/uL (0.00-0.30); Lymphocytes Percent Auto 9.4 % (20-44); Mean Corpuscular HGB Conc 32 gm/dL (32-36); Mean Corpuscular Hemoglobin 31 pg (26-34); Mean Corpuscular Volume 97 fL (80-100); Monocytes Percent Auto 9.4 % (0.0-11.0); Neutrophils Percent Auto 79.9 % (42.0-72.0); Platelet Count* 249 K/uL (140-440); RDW Coefficient of Variation % 14.4 % (11.5-15.5); Red Blood Count 4.32 m/uL (4.00-5.20); White Blood Count* 19.43 K/uL (4.50-11.00)
[2022-03-31 07:09] LABS: Slide Review Reflex No
[2022-03-31 07:29] LABS: Chloride* 93 mmol/L (96-114)
[2022-03-31 07:30] LABS: Potassium* 3.3 mmol/L (3.6-5.1); Sodium* 132 mmol/L (135-149)
[2022-03-31 07:32] LABS: Carbon Dioxide* 36 mmol/L (20-32); Creatinine* 0.5 mg/dL (0.5-1.5); Est. Creatinine Clearance* 49.72; Estimated Glomerular Filt Rate 105 ml/min
[2022-03-31 07:33] LABS: Blood Urea Nitrogen* 16 mg/dL (7-30); Calcium* 8.8 mg/dL (8.4-10.6); Glucose* 163 mg/dL (60-115)
[2022-03-31] MEDS: TORSEMIDE 5 MG TABLET 20 MG PO (08:53)
[2022-03-31] MEDS: METOPROLOL SUCCINATE (XL) 50 MG TAB PO (08:54)
[2022-03-31] MEDS: predniSONE 20 MG TABLET 40 MG PO (08:54)
[2022-03-31] MEDS: CLOPIDOGREL 75 MG TABLET PO (08:55)
[2022-03-31] MEDS: IPRAT-ALBUT 0.5-2.5 MG/3 ML NEB 1 NEB IH ×4 (08:55→20:22)
[2022-03-31] MEDS: ESCITALOPRAM 10 MG TABLET 20 MG PO (08:56)
[2022-03-31] MEDS: ACETAMINOPHEN 325 MG TABLET 650 MG PO (08:56)
[2022-03-31] MEDS: buprenorphine HCL 2 MG TAB.SUBL SL ×3 (08:56→20:30)
[2022-03-31] MEDS: SODIUM CHLORIDE 0.9 % (FLUSH) 10 ML SYRINGE 5 ML IVF ×2 (08:57→20:29)
--- NOTE | 2022-03-31 09:08 | REH.PT ---
Orders received, spoke with RN. Pt incoherent and impulsive. Pt not appropriate for PT/OT evaluation today. Will follow up tomorrow.
[2022-03-31] MEDS: POTASSIUM BICARB 25 MEQ EFFERVESCENT TAB PO (10:51)
--- NOTE | 2022-03-31 10:55 | P.IMPN_ITS ---
Progress Note: A&P Assessment and plan (1) Respiratory failure: Problem details: improved Status: Acute Assessment and Plan: Continue to wean from oxygen and respiratory support during the day. Likely will need CPAP or BiPAP whenever she is sleeping. So far non compliant. Will assess compliance when she is less encephalopathic/delirious (2) Hyperkalemia: Status: Acute Assessment and Plan: Resolved (3) Hyponatremia: Status: Acute Assessment and Plan: Improved (4) Coronary artery disease: Status: Acute Assessment and Plan: Asymptomatic (5) Polypharmacy: Status: Acute Assessment and Plan: Continue to wean opioids and benzodiazepines (6) Type 2 diabetes mellitus with circulatory disorder, without long-term current use of insulin: Status: Acute Assessment and Plan: Continue to monitor (7) SOCORRO (obstructive sleep apnea): Status: Acute Assessment and Plan: Continue home CPAP (8) Carbon dioxide narcosis: Status: Acute Assessment and Plan: Chronic, improved (9) COPD (chronic obstructive pulmonary disease): Problem details: Status: Acute Assessment and Plan: Improved, wean steroids (10) Chronic pain: Problem details: Previously had weaned off of opioids and continued buprenorphine. Uncertain whether she is taking them at home. Status: Acute Assessment and Plan: Wean opioids (11) Chronic narcotic use: Problem details: Status: Acute Assessment and Plan: Recommend buprenorphine alone without p.r.n. opioids Plan The precise cause of the patient's respiratory failure and altered mental status is uncertain. It appears most likely a combination factors including noncompliance with CPAP and possible abuse of lorazepam, oxycodone and possibly morphine causing sedation and respiratory depression. Time Spent With Patient Total time spent: 45 minutes, 35 minutes in discussion with other providers of ongoing need for managing respiratory failure and altered mental status Subjective Date Seen: 03/31/22 Interval history: 62-year-old female seen in followup of altered mental status and respiratory failure. Respiratory status is much improved. CO2 retention is much improved. Hypoxia is improved. Overnight she required continuous support from nursing to maintain BiPAP. We have arranged for her [id number] to bring in her home CPAP. She has been on and off of room air when she is awake and tolerating this fairly well. She remains intermittently confused. Exam Narrative: Exam Narrative: She is sleeping but arouses to voice. She is oriented to being in the hospital. She cannot give me any details of what happened in the last few days. Respirations with diminished breath sounds and occasional wheezes but much improved air exchange in all lung palacio. No crackles. No consolidation. Cardiovascular: S1, S2, regular rate and rhythm. No murmur gallop or rub. Abdomen is soft without tenderness or mass. Extremities with trace edema. Const: Vital Signs, click to edit/add: Vital Signs - 24 hr 03/30/22 11:00 03/30/22 15:00 03/30/22 15:00 Temperature 98.6 F 98.9 F Pulse Rate Pulse Rate [Left A pical] 80 99 98 Respiratory Rate 16 16 16 Blood Pressure [Ri ght Arm] 110/68 122/68 Pulse Oximetry 90 90 Oxygen Delivery Me thod BiPAP Room Air BiPAP Oxygen Flow Rate 30 Fraction of Inspir ed Oxygen 30 03/30/22 15:00 03/30/22 19:41 03/30/22 23:07 Temperature 98.8 F 98.4 F Pulse Rate 92 Pulse Rate [Left A pical] 87 93 Respiratory Rate 16 18 Blood Pressure [Ri ght Arm] 123/77 131/77 Pulse Oximetry 91 92 Oxygen Delivery Me thod Room Air Room Air Oxygen Flow Rate Fraction of Inspir ed Oxygen 03/30/22 23:09 03/30/22 23:17 03/31/22 02:59 Temperature 98.6 F Pulse Rate 90 Pulse Rate [Left A pical] 93 92 Respiratory Rate 18 18 Blood Pressure [Ri ght Arm] 131/77 Pulse Oximetry 88 Oxygen Delivery Me thod Room Air Oxygen Flow Rate 30 Fraction of Inspir ed Oxygen 30 03/31/22 03:13 03/31/22 08:56 Temperature 98.6 F 98 F Pulse Rate Pulse Rate [Left A pical] 87 Respiratory Rate 15 Blood Pressure [Ri ght Arm] 131/77 Pulse Oximetry 90 Oxygen Delivery Me thod BiPAP Oxygen Flow Rate 30 Fraction of Inspir ed Oxygen 24 Documenting provider has reviewed patient's vital signs: yes Labs Labs: Laboratory Results - last 24 hr 03/31/22 03/31/22 03/31/22 06:55 06:55 06:55 WBC 19.43 H RBC 4.32 Hgb 13.4 Hct 41.7 MCV 97 MCH 31 MCHC 32 RDW Coeff of Renetta 14.4 Plt Count 249 Neut % (Auto) 79.9 H Lymph % (Auto) 9.4 L [place] % (Auto) 9.4 Eos % (Auto) 0.0 Baso % (Auto) 0.2 Neut # (Auto) 15.50 H Lymph # (Auto) 1.80 [place] # (Auto) 1.80 H Eos # (Auto) 0.00 Baso # (Auto) 0.00 Abs Immat Gran (auto) 0.22 VBG pH 7.492 H VBG pCO2 50 VBG pO2 68.4 H VBG HCO3 38 H Sodium 132 L Potassium 3.3 L Chloride 93 L Carbon Dioxide 36 H BUN 16 Creatinine 0.5 Estimated Creat Clear 49.72 Estimated GFR 105 Glucose 163 H Calcium 8.8
--- NOTE | 2022-03-31 18:06 | PC.NURSE ---
Patient is more alert and coherent this afternoon. Answers questions appropriately and is oriented to person, place and self. Up walking to the bathroom with gait belt and stand by assistance. Voiding pink tinged urine, had a large bowel movement. Scheduled nebs given. Patient has been on room air today while maintaining oxygen saturations 88% or greater. [id number] brought in home CPAP and patient used this afternoon while napping. Patient's appetite is poor. States that she is really sleepy after sleeping very little the night before.
[2022-03-31] MEDS: ENOXAPARIN 40 MG/0.4 ML INJ SUBCUT (20:29)
[2022-04-01 03:00] VITALS: BP 119/63; PULSE 68; RESP 14; TEMP 37.2; O2SAT 89
[2022-04-01] MEDS: LORazepam 0.5 MG TABLET PO (04:55)
[2022-04-01] MEDS: ALBUTEROL SULFATE 2.5 MG/3 ML VIAL.NEB NEB (04:55)
[2022-04-01 06:05] LABS: HCO3 VBG 36 mmol/L (21-28); PCO2 VBG 46 mmHG (40-50); PO2 VBG 53.3 mmHG (25-47); pH VBG 7.495 (7.32-7.43)
--- NOTE | 2022-04-01 06:06 | PC.NURSE ---
Shift note 23-: Pt pleasant and cooperative, VSS, afebrile, LS clear. Pt has persistent intermittent non-productive cough. Pt used home CPAP, no supplemental O2 needed to maintain sats >88%. See eMAR for medication administration.
[2022-04-01 06:07] LABS: Basophils Percent Auto 0.1 % (0.0-3.0); Eosinophils Percent Auto 0.1 % (0.0-7.0); Hematocrit 39.8 % (33.0-51.0); Immature Granulocytes Abs Auto 0.09 K/uL (0.00-0.30); Lymphocytes Percent Auto 19.2 % (20-44); Mean Corpuscular HGB Conc 33 gm/dL (32-36); Mean Corpuscular Hemoglobin 31 pg (26-34); Mean Corpuscular Volume 96 fL (80-100); Platelet Count* 274 K/uL (140-440); RDW Coefficient of Variation % 14.4 % (11.5-15.5); Red Blood Count 4.16 m/uL (4.00-5.20); White Blood Count* 15.02 K/uL (4.50-11.00)
[2022-04-01 06:09] LABS: Slide Review Reflex No
[2022-04-01] MEDS: OMEPRAZOLE 20 MG CAPSULE DR 40 MG PO (06:33)
[2022-04-01] MEDS: LEVOTHYROXINE 50 MCG TABLET PO (06:33)
[2022-04-01 07:00] VITALS: PULSE 64; PULSE 74; RESP 18; TEMP 36.9; O2SAT 92
[2022-04-01 07:10] LABS: Chloride* 98 mmol/L (96-114); Potassium* 3.2 mmol/L (3.6-5.1); Sodium* 134 mmol/L (135-149)
[2022-04-01 07:13] LABS: Blood Urea Nitrogen* 14 mg/dL (7-30); Carbon Dioxide* 36 mmol/L (20-32); Creatinine* 0.5 mg/dL (0.5-1.5); Est. Creatinine Clearance* 49.72; Estimated Glomerular Filt Rate 105 ml/min
[2022-04-01 07:14] LABS: Calcium* 8.5 mg/dL (8.4-10.6); Glucose* 101 mg/dL (60-115)
[2022-04-01] MEDS: IPRAT-ALBUT 0.5-2.5 MG/3 ML NEB 1 NEB IH ×4 (08:14→19:29)
[2022-04-01] MEDS: TORSEMIDE 5 MG TABLET 20 MG PO (09:14)
[2022-04-01] MEDS: ESCITALOPRAM 10 MG TABLET 20 MG PO (09:14)
[2022-04-01] MEDS: CLOPIDOGREL 75 MG TABLET PO (09:14)
[2022-04-01] MEDS: METOPROLOL SUCCINATE (XL) 50 MG TAB PO (09:15)
[2022-04-01] MEDS: POTASSIUM BICARB 25 MEQ EFFERVESCENT TAB 50 MEQ PO (09:15)
[2022-04-01] MEDS: ALPRAZolam 0.25 MG TABLET 0.5 MG PO ×2 (09:15→20:53)
[2022-04-01] MEDS: buprenorphine HCL 2 MG TAB.SUBL SL ×3 (09:15→20:53)
[2022-04-01] MEDS: predniSONE 20 MG TABLET 40 MG PO (09:16)
[2022-04-01] MEDS: POTASSIUM CHLORIDE 10 MEQ CAPSULE ER 20 MEQ PO (09:16)
[2022-04-01] MEDS: SODIUM CHLORIDE 0.9 % (FLUSH) 10 ML SYRINGE 5 ML IVF (09:17)
--- NOTE | 2022-04-01 10:50 | PM.IMPN1 ---
Progress Note: A&P Assessment and plan (1) Respiratory failure: Problem details: improved Status: Acute Assessment and Plan: Used her CPAP last night which worked fairly well for her. She tells me she is compliant with this at home though she was not using when she was found unconscious at home. (2) Encephalopathy acute: Problem details: Likely toxic metabolic encephalopathy. Suspect combination of CO2 narcosis, benzodiazepine use, opioid use, excess oxygen supplementation, sleep apnea. Status: Acute Assessment and Plan: Patient's altered mental status and encephalopathy much better today. The cause of the encephalopathy is uncertain. Suspect a combination of opioid, benzodiazepine, excess supplemental oxygen with CO2 retention and sleep apnea. She is at high risk for recurrence of this problem. (3) Hyponatremia: Status: Acute Assessment and Plan: Stable (4) Hypokalemia: Status: Acute Assessment and Plan: Continue to replace. (5) Coronary artery disease: Status: Acute Assessment and Plan: Asymptomatic (6) Type 2 diabetes mellitus with circulatory disorder, without long-term current use of insulin: Status: Acute Assessment and Plan: Continue to monitor with sliding scale insulin (7) SOCORRO (obstructive sleep apnea): Status: Acute Assessment and Plan: Home CPAP (8) Carbon dioxide narcosis: Status: Acute Assessment and Plan: Resolved. Patient tells me she only uses oxygen at home at night. (9) COPD (chronic obstructive pulmonary disease): Problem details: Status: Acute Assessment and Plan: Improved. Taper prednisone (10) Chronic pain: Problem details: Previously had weaned off of opioids and continued buprenorphine. Uncertain whether she is taking them at home. Status: Acute Assessment and Plan: Per patient report pain is not well managed. Unclear whether she can have self managed pain control and not have respiratory failure (11) Chronic narcotic use: Problem details: Status: Acute Assessment and Plan: Stop oxycodone and morphine Time Spent With Patient Total time spent: night time babysitter spent today is 40 minutes, 25 minutes in coordination of care and discussing with patient and other providers management of altered mental status, COPD, sleep apnea, chronic pain and disability. Subjective Date Seen: 04/01/22 Interval history: 62-year-old female seen in followup of respiratory failure and altered mental status. This morning she appears to be close to her baseline. She is awake and able to carry on a conversation. She is able to give some history, but she has no recall of the last few days including what might have led to her being unconscious on the floor at home. Exam Narrative: Exam Narrative: She is alert. His speech is fluent. She is tearful when talking about managing her opiates and benzodiazepines. She explains how critical these are to controlling her severe pain and severe anxiety. One month ago she was hospitalized with similar problems and I had stopped her oxycodone and morphine. I had increased her buprenorphine from 2 mg t.i.d. to 4 mg b.i.d.. She had been on her prior dose of buprenorphine of 2 mg t.i.d.. She tells me that she continued on the oxycodone but stopped the morphine. [place] prescribing website indicates that she had also refilled the morphine after that hospitalization. She is also on alprazolam 0.5 mg b.i.d.. In the last 3 days she has not required oxycodone for pain. Generally she has been relatively sedated with her altered mental status. Today she tells me that her generalized pain including her back pain and shoulder pain is quite severe. Const: Vital Signs, click to edit/add: Vital Signs - 24 hr 03/31/22 11:00 03/31/22 15:00 03/31/22 15:00 Temperature 98.4 F 97.9 F Pulse Rate [Left A pical] 83 83 84 Respiratory Rate 18 18 18 Blood Pressure [Ri ght Arm] 106/69 Pulse Oximetry 90 89 Oxygen Delivery Me thod Room Air BiPAP Room Air 03/31/22 19:00 03/31/22 23:00 04/01/22 03:00 Temperature 97.6 F 98.3 F Pulse Rate [Left A pical] 86 81 68 Respiratory Rate 18 20 Blood Pressure [Ri ght Arm] 111/60 136/81 Pulse Oximetry 89 93 Oxygen Delivery Me thod Room Air CPAP Room Air 04/01/22 03:00 04/01/22 07:00 04/01/22 07:00 Temperature 99.0 F 98.5 F Pulse Rate [Left A pical] 68 64 74 Respiratory Rate 14 18 18 Blood Pressure [Ri ght Arm] 119/63 Pulse Oximetry 89 92 Oxygen Delivery Me thod Room Air Room Air Documenting provider has reviewed patient's vital signs: yes Labs Labs: Laboratory Results - last 24 hr 03/31/22 04/01/22 04/01/22 05:58 05:58 05:58 WBC 15.02 H RBC 4.16 Hgb 13.0 Hct 39.8 MCV 96 MCH 31 MCHC 33 RDW Coeff of Renetta 14.4 Plt Count 274 Neut % (Auto) 71.0 Lymph % (Auto) 19.2 L [place] % (Auto) 9.0 Eos % (Auto) 0.1 Baso % (Auto) 0.1 Neut # (Auto) 10.70 H Lymph # (Auto) 2.90 [place] # (Auto) 1.40 H Eos # (Auto) 0.00 Baso # (Auto) 0.00 Abs Immat Gran (auto) 0.09 VBG pH VBG pCO2 VBG pO2 VBG HCO3 Sodium 134 L Potassium 3.2 L Chloride 98 Carbon Dioxide 36 H BUN 14 Creatinine 0.5 Estimated Creat Clear 49.72 Estimated GFR 105 Glucose 101 Calcium 8.5 TSH 1.670 04/01/22 05:58 WBC RBC Hgb Hct MCV MCH MCHC RDW Coeff of Renetta Plt Count Neut % (Auto) Lymph % (Auto) [place] % (Auto) Eos % (Auto) Baso % (Auto) Neut # (Auto) Lymph # (Auto) [place] # (Auto) Eos # (Auto) Baso # (Auto) Abs Immat Gran (auto) VBG pH 7.495 H VBG pCO2 46 VBG pO2 53.3 H VBG HCO3 36 H Sodium Potassium Chloride Carbon Dioxide BUN Creatinine Estimated Creat Clear Estimated GFR Glucose Calcium TSH
[2022-04-01 11:00] VITALS: BP 129/83; PULSE 75; RESP 18; TEMP 36.6; O2SAT 92
[2022-04-01 15:15] VITALS: BP 113/64; PULSE 68; RESP 18; TEMP 36.7; O2SAT 89
--- NOTE | 2022-04-01 16:31 | PC.NURSE ---
Patient up to the BR with SBA, demonstrates a steady gait. Using CPAP while sleeping. Pt receiving scheduled nebs. Pt is tearful and anxious today. Expressing anxiety about med changes and recurrent hospitalization.
--- NOTE | 2022-04-01 18:42 | PC.NURSE ---
Shift [id number]- Patient naps on and off this afternoon. She is steady on feet while up. She states she has pain to shoulders, neck and lower back, but declines tylenol stating it makes her stomach upset. Slight wheezes upon auscultation.
[2022-04-01] MEDS: ENOXAPARIN 40 MG/0.4 ML INJ SUBCUT (20:53)
[2022-04-01 21:00] VITALS: BP 118/86; PULSE 71; RESP 18; TEMP 36.6; O2SAT 97
[2022-04-01 23:30] VITALS: BP 137/78; PULSE 75; PULSE 77; RESP 18; TEMP 36.7; O2SAT 97
[2022-04-01] MEDS: ACETAMINOPHEN 325 MG TABLET 650 MG PO (23:39)
--- NOTE | 2022-04-02 06:17 | PC.NURSE ---
END OF SHIFT NOTE: VSS AND WNL ON RA. AFEBRILE. PT RATES GENERALIZED PAIN 7/10 WITH NO RELIEF FROM TYLENOL. PT DECLINED ICE PACK OR HEATING PAD. PT REMOVED FROM OXYCODONE AND MORPHINE. PT SBA WITH A STEADY GAIT. PT BECAME ANXIOUS AND TEARFUL WHEN SPEAKING OF BEING REMOVED FROM PAIN MEDICATIONS. PT BECAME EMOTIONAL AGAIN WHEN TOLD SUPPLEMENTAL OXYGEN WAS NOT NEEDED AT NIGHT WITH CURRENT SPO2 LEVELS REMAINING >90% ON RA. NURSE AND CHARGE NURSE TRIED EXPLAINING TO PT ABOUT THE SIDE EFFECTS NARCOTICS HAVE ON THE RESPIRATORY SYSTEM. PT REMAINED UPSET. EDUCATION REINFORCEMENT NEEDED.
[2022-04-02] MEDS: LEVOTHYROXINE 50 MCG TABLET PO (06:37)
[2022-04-02] MEDS: OMEPRAZOLE 20 MG CAPSULE DR 40 MG PO (06:37)
[2022-04-02 06:38] LABS: HCO3 VBG 37 mmol/L (21-28); PCO2 VBG 57 mmHG (40-50); pH VBG 7.419 (7.32-7.43)
[2022-04-02 06:40] LABS: Basophils Percent Auto 0.1 % (0.0-3.0); Eosinophils Percent Auto 0.1 % (0.0-7.0); Hematocrit 40.4 % (33.0-51.0); Hemoglobin* 13.1 gm/dL (12.0-16.0); Lymphocytes Percent Auto 23.3 % (20-44); Mean Corpuscular HGB Conc 32 gm/dL (32-36); Mean Corpuscular Hemoglobin 31 pg (26-34); Mean Corpuscular Volume 95 fL (80-100); Monocytes Percent Auto 9.3 % (0.0-11.0); Neutrophils Percent Auto 66.5 % (42.0-72.0); Platelet Count* 291 K/uL (140-440); RDW Coefficient of Variation % 14.2 % (11.5-15.5); Red Blood Count 4.24 m/uL (4.00-5.20); White Blood Count* 14.45 K/uL (4.50-11.00)
[2022-04-02 06:41] VITALS: BP 140/76; PULSE 68; PULSE 75; RESP 16; TEMP 36.5; O2SAT 93
[2022-04-02 06:46] LABS: Slide Review Reflex No
[2022-04-02 06:53] LABS: Chloride* 95 mmol/L (96-114)
[2022-04-02 06:54] LABS: Potassium* 3.8 mmol/L (3.6-5.1); Sodium* 132 mmol/L (135-149)
[2022-04-02 06:56] LABS: Carbon Dioxide* 34 mmol/L (20-32); Creatinine* 0.6 mg/dL (0.5-1.5); Est. Creatinine Clearance* 49.72; Estimated Glomerular Filt Rate 101 ml/min
[2022-04-02 06:57] LABS: Blood Urea Nitrogen* 14 mg/dL (7-30); Calcium* 8.7 mg/dL (8.4-10.6); Glucose* 126 mg/dL (60-115)
[2022-04-02 07:00] VITALS: PULSE 67; RESP 12
--- NOTE | 2022-04-02 07:31 | P.DS_ITS ---
DS: Providers Provider Date Seen: 04/02/22 Date of admission: 03/29/22 22:05 Primary care physician: Moreno Dill MD Admitting Clinician: Jamey Floyd MD Attending Physician on discharge: Jamey Floyd MD Date of Discharge: 04/02/22 DS: Diagnosis Discharge Diagnosis (1) Respiratory failure: Status: Acute Problem details: Respiratory failure was thought most likely due to hypoventilation from use of benzodiazepines, opioids, oxygen in the context of COPD and sleep apnea. (2) Encephalopathy acute: Status: Acute Problem details: Encephalopathy secondary to severe hypoxia and CO2 narcosis from respiratory failure. Resolved with correction of hypoxia and CO2 retention (3) SOCORRO (obstructive sleep apnea): Status: Acute Problem details: Doing well on home CPAP (4) COPD (chronic obstructive pulmonary disease): Status: Acute Problem details: COPD exacerbation was not thought to be the primary cause of respiratory (5) Hypoxia: Status: Acute Problem details: Patient did not need oxygen at night with CPAP or during the day to maintain O2 sats in the 90s. My current recommendation is to avoid oxygen during the day or at night. Patient can check her oximeter and if her oxygen saturations are in the 80s she may use a maximum of 1 L/min/nasal cannula. (6) Chronic pain: Status: Acute Problem details: On this hospitalization as well as hospitalization 1 month ago buprenorphine was continued and morphine and Percocet were discontinued without any di fficulties. Patient has continued these prescriptions at home against my medical advice. (7) Hypokalemia: Status: Acute Problem details: Needs follow-up to reassess diuretic and potassium replacement (8) Carbon dioxide narcosis: Status: Acute Problem details: This is thought to be the primary cause of altered mental status and possibly the cause of respiratory failure. (9) Chronic narcotic use: Status: Acute Problem details: Strongly urged the patient to discontinue opiate agonists, morphine and Per cocet, and continue buprenorphine (10) Congestive heart failure: Status: Acute Problem details: Heart failure was not thought to be a primary cause respiratory failure. Still uncertain as to appropriate dose of diuretic and potassium supplement DS: Summary Hospital Course Hospital Course: Patient admitted to the hospital with oxygen saturations in the 60s and pCO2 of 98 and somnolent. Patient was able to confirm a status of do not intubate and do not resuscitate. Therefore, she was immediately started on BiPAP. Over the next 2 days her pCO2 and oxygen saturations markedly improved. With this her mental status also improved. She was simultaneously treated for a COPD exacerbation. This was thought to be a significant contributor though unknown if this was the primary cause of her respiratory failure and somnolence. During her hospital stay she continued to get buprenorphine and alprazolam but other opioids, Percocet and morphine, were discontinued. Her supplemental oxygen was also discontinued and she was able to maintain O2 sats in the 90s on room air at night and during the day. On the day of discharge her morning venous blood gas showed a pH of 7.42 and a pCO2 to of 57. This was after sleeping with CPAP and no supplemental oxygen. I recommend she discontinue supplemental oxygen. I think it would be safe for her to use 1 L per nasal cannula if her home oxygen saturations are less than 90%. Status at Discharge Functional status at discharge: independent ambulation Overall status at discharge: patient is back to baseline Time Spent with Patient Time attestation: Total time spent providing and/or coordinating discharge services: 50 minutes Exam Narrative: Exam Narrative: She is alert and appears in no distress. Mental status is back to baseline. Fluctuates from tearful when talking about opiates and oxygen and the risk for respiratory depression to a brighter mood and affect when talking about going home. Breathing is unlabored. She has diffusely diminished breath sounds. A rare basilar wheezes noted. Cardiovascular: S1, S2, regular rate and rhythm. Const: Vital Signs, click to edit/add: Vital Signs - 24 hr 04/01/22 11:00 04/01/22 15:15 04/01/22 21:00 Temperature 97.9 F 98.1 F 97.8 F Pulse Rate [Left A pical] 75 68 Pulse Rate [Pulse Oximeter] 71 Respiratory Rate 18 18 18 Blood Pressure [Ri ght Arm] 129/83 113/64 118/86 Pulse Oximetry 92 89 97 Oxygen Delivery Me thod Room Air Room Air Room Air 04/01/22 23:30 04/01/22 23:30 04/02/22 06:41 Temperature 98.0 F 97.7 F Pulse Rate [Left A pical] 75 75 75 Pulse Rate [Pulse Oximeter] 77 77 68 Respiratory Rate 18 18 16 Blood Pressure [Ri ght Arm] 137/78 140/76 H Pulse Oximetry 97 93 Oxygen Delivery Me thod Room Air Room Air Documenting provider has reviewed patient's vital signs: yes DS: Data Data Completed and Pending Completed studies during hospitalization: Procedures Assistance with Respiratory Ventilation, 24-96 Consecutive Hours, Continuous Positive Airway Pressure (03/02/22) Introduction of Other Gas into Respiratory Tract, Via Natural or Artificial Opening (03/02/22) Labs on day of discharge: Labs from last 24 hours 04/02/22 04/02/22 04/02/22 06:30 06:30 06:30 WBC 14.45 H RBC 4.24 Hgb 13.1 Hct 40.4 MCV 95 MCH 31 MCHC 32 RDW Coeff of Renetta 14.2 Plt Count 291 Neut % (Auto) 66.5 Lymph % (Auto) 23.3 [place] % (Auto) 9.3 Eos % (Auto) 0.1 Baso % (Auto) 0.1 Neut # (Auto) 9.60 H Lymph # (Auto) 3.40 H [place] # (Auto) 1.30 H Eos # (Auto) 0.00 Baso # (Auto) 0.00 Abs Immat Gran (auto) 0.10 VBG pH 7.419 VBG pCO2 57 H VBG pO2 31.0 VBG HCO3 37 H Sodium 132 L Potassium 3.8 Chloride 95 L Carbon Dioxide 34 H BUN 14 Creatinine 0.6 Estimated Creat Clear 49.72 Estimated GFR 101 Glucose 126 H Calcium 8.7 TSH 03/31/22 05:58 WBC RBC Hgb Hct MCV MCH MCHC RDW Coeff of Renetta Plt Count Neut % (Auto) Lymph % (Auto) [place] % (Auto) Eos % (Auto) Baso % (Auto) Neut # (Auto) Lymph # (Auto) [place] # (Auto) Eos # (Auto) Baso # (Auto) Abs Immat Gran (auto) VBG pH VBG pCO2 VBG pO2 VBG HCO3 Sodium Potassium Chloride Carbon Dioxide BUN Creatinine Estimated Creat Clear Estimated GFR Glucose Calcium TSH 1.670 Preliminary micro results at discharge 03/29/22 21:50 Blood Culture - Preliminary Blood NO GROWTH AFTER 72 HOURS 03/29/22 19:55 Blood Culture - Preliminary Blood NO GROWTH AFTER 72 HOURS Discharge Plan Discharge Disposition: Home, Self-Care Date of Admission: 03/29/22 22:05 Attending Provider on Discharge: Jamey Floyd Primary Care Provider: Moreno Dill Condition: Improved Anticipated Discharge Date/Time: 04/02/22 10:00 Discharge Medications: Continued ipratropium-albuterol 0.5 mg-3 mg(2.5 mg base)/3 mL solution for nebulization 3 ml inhalation Q6-8H PRN aspirin 81 mg tablet,chewable 81 mg PO DAILY naloxone 4 mg/actuation spray,non-aerosol 4 mg intranasal Q2-3M PRN Rx Instructions: spray 1 dose into ONE nostril; alternate nostrils w each dose until help arrives sennosides-docusate sodium 8.6-50 mg tablet 2 tab PO BID levothyroxine [Synthroid] 50 mcg tablet 50 mcg PO DAILY rosuvastatin [Crestor] 20 mg tablet 20 mg PO DAILY clopidogrel [Plavix] 75 mg tablet 75 mg PO DAILY budesonide-formoterol 160-4.5 mcg/actuation HFA aerosol inhaler 2 inh inhalation BID nitroglycerin [Nitrostat] 0.4 mg tablet, sublingual 0.4 mg sublingual Q5M Rx Instructions: do not exceed 3 doses per episode Spiriva with HandiHaler 18 mcg capsule, w/inhalation device 1 cap INHALATION DAILY esomeprazole magnesium [Nexium] 40 mg capsule,delayed release(DR/EC) 40 mg PO DAILY ezetimibe [Zetia] 10 mg tablet 10 mg PO DAILY glimepiride 1 mg tablet 2 mg PO BID isosorbide mononitrate 60 mg tablet extended release 24 hr 120 mg PO DAILY magnesium oxide 400 mg magnesium capsule 400 mg PO DAILY Nasal [place] (sodium chloride) 0.65 % aerosol,spray 2 spray intranasal Q2H PRN meclizine 25 mg tablet 25 mg PO TID PRN metoprolol succinate 50 mg tablet extended release 24 hr 50 mg PO DAILY ondansetron HCl 4 mg tablet 4 mg PO Q8H PRN mirtazapine 15 mg tablet 7.5 mg PO DAILY PRN prazosin 2 mg capsule 4 mg PO HS alprazolam [Xanax] 0.5 mg tablet 0.5 mg PO BID PRN escitalopram oxalate 20 mg tablet 20 mg PO DAILY albuterol sulfate 90 mcg/actuation HFA aerosol inhaler 2 puff INHALATION Q4H PRN mirtazapine 30 mg tablet 30 mg PO HS buprenorphine HCl 2 mg tablet, sublingual 2 mg SUBLINGUAL TID torsemide 20 mg tablet 20 mg PO BID Qty: 60 0RF potassium chloride 20 mEq tablet,ER particles/crystals 40 meq PO DAILY Qty: 60 0RF Discontinued methocarbamol 500 mg tablet 1,000 mg PO HS (DME) Home Oxygen Misc See Rx Instructions .ROUTE Rx Instructions: As directed oxycodone-acetaminophen 7.5-325 mg tablet 1 tab PO TID PRN Discharge Orders: Discharge Order (Routine); Ordered 04/02/22 Ordered By: Jamey Floyd Activity Restrictions/Additional Instructions: Arrange appointments with [facility] and Dr. Dill and your psychiatrist in the next 1-2 weeks. Activity Level: Activity as Tolerated Follow Up Appointments: Moreno Dill MD [Primary Care Provider] - (1 week) Forms: [employer] Info Instructions
[2022-04-02] MEDS: predniSONE 20 MG TABLET PO (07:40)
[2022-04-02] MEDS: ACETAMINOPHEN 325 MG TABLET 650 MG PO (07:40)
[2022-04-02] MEDS: buprenorphine HCL 2 MG TAB.SUBL SL (08:38)
[2022-04-02] MEDS: POTASSIUM CHLORIDE 10 MEQ CAPSULE ER 20 MEQ PO (08:39)
[2022-04-02] MEDS: METOPROLOL SUCCINATE (XL) 50 MG TAB PO (08:39)
[2022-04-02] MEDS: ALPRAZolam 0.25 MG TABLET 0.5 MG PO (08:39)
[2022-04-02] MEDS: ESCITALOPRAM 10 MG TABLET 20 MG PO (08:40)
[2022-04-02] MEDS: CLOPIDOGREL 75 MG TABLET PO (08:40)
[2022-04-02] MEDS: TORSEMIDE 5 MG TABLET 20 MG PO (08:40)
[2022-04-02] MEDS: IPRAT-ALBUT 0.5-2.5 MG/3 ML NEB 1 NEB IH (08:42)
--- NOTE | 2022-04-02 09:45 | PC.NURSE ---
Discharge: Patient pleasant and cooperative. Patient vitally stable, lungs with wheezes and rhonci, BS WNL, No IV. Patient on RA sating at 92%. Patient had cpap off when RN entered room this morning. Patient rates pain 7/10, Tylenol given. Patient independent in room. Patient signed belongings sheet and discharge form. Patient had no further questions regarding discharge. Patient left the floor at 0944 by wheelchair, patient's daughter in-law accompanied patient and helped carry belongings.
--- NOTE | 2022-04-02 11:14 | PC.SOCIAL ---
Social work: Per OT, pt has shared over the weekend that she was requesting mobile home installer care services be set up through her [place] director case. electronics worker had spoken with director case on 03/30/22 at which time director case stated pt had refused services at home. Called director case and left message stating pt is requesting [facility] sets up mobile home installer care services. Left contact information for this social media job titles on the director case's voicemail in case additional information is needed.
== END 2022-04-02 09:44 | disposition home or self-care (01) | DRG 189 ==
LOC: ED 21:16 → MEDSURG 22:17
PROVIDERS: Family Medicine; Admitting Provider Family Medicine; Emergency Provider Family Medicine; PCP Family Medicine; Visit Provider Family Medicine
DX: J96.91 Respiratory failure, unspecified with hypoxia (principal); I50.33 Acute on chronic diastolic (congestive) heart failure; G93.40 Encephalopathy, unspecified; E87.1 Hypo-osmolality and hyponatremia; E87.2 Acidosis; I11.0 Hypertensive heart disease with heart failure; J96.21 Acute and chronic respiratory failure with hypoxia; J44.9 Chronic obstructive pulmonary disease, unspecified; Z79.899 Other long term (current) drug therapy; F11.90 Opioid use, unspecified, uncomplicated; G47.33 Obstructive sleep apnea (adult) (pediatric); E87.6 Hypokalemia; T59.7X1A Toxic effect of carbon dioxide, accidental (unintentional), initial encounter; R41.82 Altered mental status, unspecified; I25.10 Atherosclerotic heart disease of native coronary artery without angina pectoris; R60.9 Edema, unspecified; Z79.82 Long term (current) use of aspirin; Z66 Do not resuscitate; Z87.891 Personal history of nicotine dependence; E11.59 Type 2 diabetes mellitus with other circulatory complications; E87.5 Hyperkalemia; R74.01 Elevation of levels of liver transaminase levels; G89.4 Chronic pain syndrome
CPT/HCPCS: 36415; 71045; 80048; 80053; 81003; 81015; 82550; 82803; 82947; 83605; 83880; 84145; 84443; 84484; 85025; 85379; 86140; 87040; 87086; 87426; 87502; 87634; 87635; 93005; 93306; 94640; 94660; 94761; 97112; 97116; 97161; 97166; 97530; 97535; 99285; 99291; J0571; A9270; J1650; J1940; J2543; J2930; J7050; J7512

== ENCOUNTER 2022-09-03 15:23 | Emergency (ER) | payer OTHER, SELFPAY ==
[2022-09-03 15:29] VITALS: BP 137/86; PULSE 88; RESP 18; TEMP 36.3; O2SAT 94; BMI 29.7
--- NOTE | 2022-09-03 16:03 | ED.NURSE ---
Pt fell last night at 8pm on ice outside her apartment complex. Pt states she is on Plavix and hit the back of her head. She has hardware in her neck and is concerned that this fall might have harmed her hardware.
[2022-09-03 16:05] VITALS: BP 111/66; PULSE 76; RESP 17; TEMP 36.2; O2SAT 94
--- NOTE | 2022-09-03 16:12 | CRLHL7_ITS ---
For Patients: As a result of the Century Cures Act, medical imaging exams and procedure reports are released immediately into your electronic medical record. You may view this report before your referring provider. If you have questions, please contact your health care provider. INDICATION: Injury COMPARISON: None TECHNIQUE: CT examination of the head was performed as axial sections without intravenous contrast. Images were obtained from the vertex of the skull through the skull base. Please note that all CT scans at this facility use dose modulation, iterative reconstruction, and/or weight-based dosing when appropriate to reduce radiation dose to as low as reasonably achievable. FINDINGS: The brain shows no sign of mass lesion, mass effect, hemorrhage, or edema. The ventricles and sulci are normal in appearance for the patient`s age. The visualized portions of the orbits are normal in appearance. The osseous structures are normal in their appearance with no sign of abnormality in the skull base or calvarium. IMPRESSION: No visible acute posttraumatic findings intracranially. Please note that all CT scans at this facility use dose modulation, iterative reconstruction, and/or weight-based dosing when appropriate to reduce radiation dose to as low as reasonably achievable. Dictated by Tawanda Coulter MD @ 09/03/2022 4:56:21 PM (Electronically Signed)
--- NOTE | 2022-09-03 16:13 | CRLHL7_ITS ---
For Patients: As a result of the Century Cures Act, medical imaging exams and procedure reports are released immediately into your electronic medical record. You may view this report before your referring provider. If you have questions, please contact your health care provider. INDICATION: Trauma COMPARISON: No TECHNIQUE: CT examination of the cervical spine is performed without contrast using spiral technique. Thin axial, sagittal and coronal reconstructions were made. Please note that all CT scans at this facility use dose modulation, iterative reconstruction, and/or weight-based dosing when appropriate to reduce radiation dose to as low as reasonably achievable. FINDINGS: : There is straightening which is usually due to muscle spasm, positioning or immobilization device. There are postsurgical changes related to lower anterior fusion. Hardware and alignment in this area appears intact. There are degenerative changes. No visible acute fracture, dislocation or destructive process. IMPRESSION: Degenerative and postsurgical changes. No visible acute fracture, dislocation or destructive process. Please note that all CT scans at this facility use dose modulation, iterative reconstruction, and/or weight-based dosing when appropriate to reduce radiation dose to as low as reasonably achievable. Dictated by Tawanda Coulter MD @ 09/03/2022 4:58:58 PM (Electronically Signed)
[2022-09-03] MEDS: ONDANSETRON ODT 4 MG TAB PO (16:18)
--- NOTE | 2022-09-03 16:35 | ED_ITS ---
HPI - General Adult General Date Seen: 09/03/22 Chief complaint: Fall/Minor Trauma Stated complaint: Fell last night, Hit head and injured neck Time Seen by Provider: 09/03/22 16:07 Source: patient History of Present Illness HPI narrative: Patient is a 62-year-old woman who reports slipping and falling last night and hitting her head on the ground. She says she did not lose consciousness but she laid there for a while before getting up. She says since then she has had headache and nausea. She says she did not sleep overnight because she was afraid to. She has also had pain in her neck and is worried about the hardware that she has from previous surgery. She has Percocet that she takes for pain at home and says she tried that for her headache last night but it did not help. She has not had any vomiting. She denies other injuries. She is requesting something for nausea and for pain. She does take Plavix, no other blood thinners. Related Data Home Medications Medication Instructions Recorded Confirmed alprazolam 0.5 mg tablet (Xanax) 0.5 mg PO BID PRN 03/02/22 09/03/22 aspirin 81 mg chewable tablet 81 mg PO DAILY 03/02/22 09/03/22 budesonide-formoterol HFA 160 2 inh inhalation BID 03/02/22 09/03/22 mcg-4.5 mcg/actuation aerosol inhaler clopidogrel 75 mg tablet (Plavix) 75 mg PO DAILY 03/02/22 09/03/22 escitalopram oxalate 20 mg tablet 20 mg PO DAILY 03/02/22 09/03/22 esomeprazole magnesium 40 mg 40 mg PO DAILY 03/02/22 09/03/22 capsule,delayed release (Nexium) ezetimibe 10 mg tablet (Zetia) 10 mg PO DAILY 03/02/22 09/03/22 glimepiride 1 mg tablet 2 mg PO BID 03/02/22 09/03/22 ipratropium 0.5 mg-albuterol 3 mg 3 ml inhalation Q6-8H PRN 03/02/22 09/03/22 (2.5 mg base)/3 mL nebulization soln isosorbide mononitrate 60 mg 120 mg PO DAILY 03/02/22 09/03/22 tablet,extended release 24 hr levothyroxine 50 mcg tablet 50 mcg PO DAILY 03/02/22 09/03/22 (Synthroid) magnesium oxide 400 mg PO DAILY 03/02/22 09/03/22 meclizine 25 mg tablet 25 mg PO TID PRN 03/02/22 09/03/22 metoprolol succinate 50 mg 50 mg PO DAILY 03/02/22 09/03/22 tablet,extended release 24 hr mirtazapine 15 mg tablet 7.5 mg PO DAILY PRN 03/02/22 09/03/22 naloxone 4 mg/actuation nasal spray 4 mg intranasal Q2-3M PRN 03/02/22 09/03/22 nitroglycerin 0.4 mg sublingual 0.4 mg sublingual Q5M 03/02/22 09/03/22 tablet (Nitrostat) ondansetron HCl 4 mg tablet 4 mg PO Q8H PRN 03/02/22 09/03/22 prazosin 2 mg capsule 4 mg PO HS 03/02/22 09/03/22 rosuvastatin 20 mg tablet (Crestor) 20 mg PO DAILY 03/02/22 09/03/22 sennosides 8.6 mg-docusate sodium 2 tab PO BID 03/02/22 09/03/22 50 mg tablet sodium chloride 0.65 % nasal spray 2 spray intranasal Q2H PRN 03/02/22 09/03/22 aerosol (Nasal [place] (sodium chloride)) tiotropium bromide 18 mcg capsule 1 cap inhalation DAILY 03/02/22 09/03/22 with inhalation device (Spiriva with HandiHaler) albuterol sulfate 90 mcg/actuation 2 puff inhalation Q4H PRN 03/30/22 09/03/22 aerosol inhaler buprenorphine HCl 2 mg sublingual 2 mg sublingual TID 03/30/22 09/03/22 tablet mirtazapine 30 mg tablet 30 mg PO HS 03/30/22 09/03/22 Previous Rx's Medication Instructions Recorded potassium chloride 20 mEq 40 meq PO DAILY #60 tabs 04/02/22 tablet,extended release(part/cryst) torsemide 20 mg tablet 20 mg PO BID #60 tabs 04/02/22 Allergies Allergy/AdvReac Type Severity Reaction Status Date / Time sumatriptan Allergy Severe Anaphylaxis Verified 09/03/22 15:37 buspirone Allergy Intermediate Rash Verified 09/03/22 15:37 fentanyl Allergy Intermediate Verified 09/03/22 15:37 gabapentin Allergy Intermediate gi upset Verified 09/03/22 15:37 niacin Allergy Intermediate Verified 09/03/22 15:37 trazodone Allergy Intermediate Verified 09/03/22 15:37 atorvastatin Allergy Mild myalgia Verified 09/03/22 15:37 codeine Allergy Mild itching Verified 09/03/22 15:37 rizatriptan Allergy Mild Flushing Verified 09/03/22 15:37 Review of Systems Status of ROS: Reports: 10 or more systems reviewed and unremarkable except as noted in History and below [facility] Medical History Acute and chronic respiratory failure ([id number]) Acute confusion Acute hyponatremia Acute on chronic heart failure with preserved ejection fraction Allergic rhinitis due to pollen Anxiety Arthropathy of spinal facet joint Asthma CAD (coronary artery disease) Chest pain Chronic pain syndrome Cluster B personality disorder CO2 retention Congestive heart failure Congestive heart failure COPD (chronic obstructive pulmonary disease) Coronary artery disease Diabetes mellitus type 2 in obese Edema Edema Encephalopathy acute GERD (gastroesophageal reflux disease) Graves disease History of nicotine dependence Hyperkalemia Hyperlipidemia Hypokalemia Hyponatremia Hypothyroidism Insomnia Leukocytosis Lumbar spinal stenosis Opioid dependence [place] (obstructive sleep apnea) Panic disorder PTSD (post-traumatic stress disorder) Recurrent major depression Refractory migraine Respiratory failure Secondary polycythemia Type 2 diabetes mellitus with circulatory disorder, without long-term current use of insulin Surgical History Failed CABG (coronary artery bypass graft) H/O heart artery stent Social History Narrative: Patient lives alone in [place]. Former smoker. No longer smoking. She does not drink alcohol. Her healthcare power of finance attorney is her future [id number], [place]. code status is DNR. Highest level of school completed/degree received: some college, no degree Smoking Status: Current some day smoker What tobacco products do you use: cigarettes Smoking quit date/years: <= 15 years ago Second hand tobacco smoke exposure: No How often do you have a drink containing alcohol: never How often do you have six or more drinks on one occasion: Never AUDIT-C Alcohol total score: 0 Non-prescribed substance use: denies use Caffeine: Yes service: No Exam Narrative: Exam Narrative: Vital signs as noted above. In general, an alert, nontoxic woman. Head: Normocephalic, atraumatic. No hematoma, abrasion, laceration. Eyes: Pupils are equal reactive. Extraocular movements are full. Conjunctivae are normal. ENT: Mucous membranes are moist. Throat is normal. No facial trauma. Neck: Supple without lymphadenopathy. Tenderness in the musculature bilaterally. No midline tenderness. Heart: Regular rate and rhythm. No murmur or rub. Lungs: Clear bilaterally. No increased work of breathing, crackles or wheezes. Abdomen: Soft and nontender. No organomegaly. Extremities: Well perfused. No edema. No calf tenderness. Pulses intact. Neurologic: Patient is alert and oriented to person and place. Speech is fluent. Face is symmetric. Moves all extremities equally. Affect: Normal. Skin: Warm and dry. Well perfused. Const: Vital Signs, click to edit/add: Vital Signs - 24 hr 09/03/22 15:29 09/03/22 16:05 Temperature 97.4 F L 97.1 F L Pulse Rate [Right Pulse Oximeter] 88 76 Respiratory Rate 18 17 Blood Pressure [Ri ght Upper Arm] 137/86 111/66 Pulse Oximetry 94 94 Oxygen Delivery Me thod Room Air Room Air Documenting provider has reviewed patient's vital signs: yes Course Course Hospital Course: I suggested we start by trying to get her nausea under better control and then we can try giving her an oxycodone here. Discussed with her that I do not think we have anything stronger than that that I would recommend using for her headache here. Ordered head CT and cervical spine CT to evaluate her headache and neck pain. CT scan of the head by my review was negative for acute findings, read as negative by Radiology as well. CT of the cervical spine was read by Radiology as negative for any acute bony pathology. Hardware of the cervical spine looks intact. She did request Toradol which after seeing her negative head CT I felt comfortable giving her. She had 30 mg IM. She is feeling improved in terms of nausea and pain. She is reassured that there is no evidence of bleeding in her head. Comfortable with discharge. She can use Tylenol as needed, she has Percocet if she would like to use that. She also says she has Zofran at home that she forgot about. Follow up with primary care as needed for further concerns. Vital Signs Vital signs: Initial Vital Signs Temperature 97.4 F L 09/03/22 15:29 Temperature Source Temporal Artery Scan 09/03/22 15:29 Pulse Rate 88 09/03/22 15:29 Respiratory Rate 18 09/03/22 15:29 Blood Pressure 137/86 09/03/22 15:29 Blood Pressure Mean 103 09/03/22 15:29 Blood Pressure Position Sitting 09/03/22 15:29 Pulse Oximetry 94 09/03/22 15:29 Oxygen Delivery Method 09/03/22 15:29 Vital Signs Temperature 97.4 F L 09/03/22 15:29 Pulse Rate 88 09/03/22 15:29 Respiratory Rate 18 09/03/22 15:29 Blood Pressure 137/86 09/03/22 15:29 Pulse Oximetry 94 09/03/22 15:29 Oxygen Delivery Method 09/03/22 15:29 Temperature 97.1 F L 09/03/22 16:05 Pulse Rate 76 09/03/22 16:05 Respiratory Rate 17 09/03/22 16:05 Blood Pressure 111/66 09/03/22 16:05 Pulse Oximetry 94 09/03/22 16:05 Oxygen Delivery Method 09/03/22 16:05 Discharge Plan Discharge Clinical Impression: Closed head injury, Cervical strain Patient Disposition: Home, Self-Care Condition: Stable Instructions: Cervical Strain (DC), Head Injury (ED) Additional Instructions: You can use ibuprofen and/or Tylenol, or you can take her Percocet if you prefer. Zofran if needed for nausea. Ice and/or heat may be helpful for your neck. Imaging is all reassuring today that there was no serious injury to your head or cervical spine. Hardware is all intact. Follow-up as needed with your primary care provider for ongoing concerns. Prescriptions: No Action ipratropium-albuterol 0.5 mg-3 mg(2.5 mg base)/3 mL solution for nebulization 3 ml inhalation Q6-8H PRN aspirin 81 mg tablet,chewable 81 mg PO DAILY naloxone 4 mg/actuation spray,non-aerosol 4 mg intranasal Q2-3M PRN Rx Instructions: spray 1 dose into ONE nostril; alternate nostrils w each dose until help arrives sennosides-docusate sodium 8.6-50 mg tablet 2 tab PO BID levothyroxine [Synthroid] 50 mcg tablet 50 mcg PO DAILY rosuvastatin [Crestor] 20 mg tablet 20 mg PO DAILY clopidogrel [Plavix] 75 mg tablet 75 mg PO DAILY budesonide-formoterol 160-4.5 mcg/actuation HFA aerosol inhaler 2 inh inhalation BID nitroglycerin [Nitrostat] 0.4 mg tablet, sublingual 0.4 mg sublingual Q5M Rx Instructions: do not exceed 3 doses per episode Spiriva with HandiHaler 18 mcg capsule, w/inhalation device 1 cap INHALATION DAILY esomeprazole magnesium [Nexium] 40 mg capsule,delayed release(DR/EC) 40 mg PO DAILY ezetimibe [Zetia] 10 mg tablet 10 mg PO DAILY glimepiride 1 mg tablet 2 mg PO BID isosorbide mononitrate 60 mg tablet extended release 24 hr 120 mg PO DAILY magnesium oxide 400 mg magnesium capsule 400 mg PO DAILY Nasal [place] (sodium chloride) 0.65 % aerosol,spray 2 spray intranasal Q2H PRN meclizine 25 mg tablet 25 mg PO TID PRN metoprolol succinate 50 mg tablet extended release 24 hr 50 mg PO DAILY ondansetron HCl 4 mg tablet 4 mg PO Q8H PRN mirtazapine 15 mg tablet 7.5 mg PO DAILY PRN prazosin 2 mg capsule 4 mg PO HS alprazolam [Xanax] 0.5 mg tablet 0.5 mg PO BID PRN escitalopram oxalate 20 mg tablet 20 mg PO DAILY albuterol sulfate 90 mcg/actuation HFA aerosol inhaler 2 puff INHALATION Q4H PRN mirtazapine 30 mg tablet 30 mg PO HS buprenorphine HCl 2 mg tablet, sublingual 2 mg SUBLINGUAL TID torsemide 20 mg tablet 20 mg PO BID Qty: 60 0RF potassium chloride 20 mEq tablet,ER particles/crystals 40 meq PO DAILY Qty: 60 0RF Follow Up/Referrals: Moreno Dill MD [Primary Care Provider] - Stand Alone Forms: [facility] Info Instructions
[2022-09-03] MEDS: KETOROLAC 30 MG/ML inj IM (17:31)
== END 2022-09-03 18:00 | disposition home or self-care (01) ==
PROVIDERS: Emergency Provider Emergency Medicine; PCP Family Medicine
DX: S09.90XA Unspecified injury of head, initial encounter (principal); S16.1XXA Strain of muscle, fascia and tendon at neck level, initial encounter; W01.0XXA Fall on same level from slipping, tripping and stumbling without subsequent striking against object, initial encounter
CPT/HCPCS: 70450; 72125; 96372; 99283; 99284; A9270; J1885

== ENCOUNTER 2022-12-12 17:02 | Observation (INO) | payer OTHER, SELFPAY ==
[2022-12-12] VITALS (17 sets, daily range): BP systolic 98–132; BP diastolic 64–95; PULSE 74–92; RESP 18–26; TEMP 36.6–36.8; O2SAT 91–100; BMI 29.9
--- NOTE | 2022-12-12 17:13 | CRLHL7_ITS ---
For Patients: As a result of the Century Cures Act, medical imaging exams and procedure reports are released immediately into your electronic medical record. You may view this report before your referring provider. If you have questions, please contact your health care provider. INDICATION: Chest pain COMPARISON: CT 01/10/2022 TECHNIQUE: CT volumetric acquisition was performed of the thorax during intravenous infusion of 95 cc of Omnipaque-350 nonionic intravenous contrast. Please note that all CT scans at this facility use dose modulation, iterative reconstruction, and/or weight-based dosing when appropriate to reduce radiation dose to as low as reasonably achievable. FINDINGS: There is no pulmonary embolism in the main, lobar segmental pulmonary arteries. Emphysematous changes are suspected. Tiny bilateral nodules measuring 4 millimeter or less. Postop changes of CABG. No adenopathy. Breast tissue is normal. Degenerative changes mid thoracic spine. No infiltrate, edema, effusion or pneumothorax. IMPRESSION: No evidence of pulmonary thromboembolism. Please note that all CT scans at this facility use dose modulation, iterative reconstruction, and/or weight-based dosing when appropriate to reduce radiation dose to as low as reasonably achievable. Dictated by Ra Correia MD @ 12/12/2022 7:35:18 PM (Electronically Signed)
--- NOTE | 2022-12-12 17:17 | ED.GENADULT ---
HPI - General Adult General Chief complaint: Chest Pain Stated complaint: Chest pain, difficulty breathing History of Present Illness HPI narrative: Patient is a 62 white female with congenital heart disease, she has had bypass surgery by her report, she has had stents. There is chart history of COPD,, chronic hypoxic respiratory failure., congestive heart failure. The patient about 11:00 a.m. started having chest pain she went to her regular doctor's appointment she called an ambulance and she was on the way home. She states she has felt poorly over the last few days. Has not really gained weight by her report, she states she feels short of breath, has mid says sternal chest pain. There has been some documentation in her chart about narcotic abuse. She states when asked about her medical condition ?I am sick of it?. But does not have suicidal ideation or plan the patient has no leg swelling of marked note or orthopnea. Presents by ambulance to the emergency department she was given nitroglycerin. Related Data Home Medications Medication Instructions Recorded Confirmed alprazolam 0.5 mg tablet (Xanax) 0.5 mg PO BID PRN 03/02/22 12/12/22 aspirin 81 mg chewable tablet 81 mg PO DAILY 03/02/22 12/12/22 budesonide-formoterol HFA 160 2 inh inhalation BID 03/02/22 12/12/22 mcg-4.5 mcg/actuation aerosol inhaler clopidogrel 75 mg tablet (Plavix) 75 mg PO DAILY 03/02/22 12/12/22 escitalopram oxalate 20 mg tablet 20 mg PO DAILY 03/02/22 12/12/22 esomeprazole magnesium 40 mg 40 mg PO DAILY 03/02/22 12/12/22 capsule,delayed release (Nexium) ezetimibe 10 mg tablet (Zetia) 10 mg PO DAILY 03/02/22 12/12/22 glimepiride 1 mg tablet 2 mg PO BID 03/02/22 12/12/22 ipratropium 0.5 mg-albuterol 3 mg 3 ml inhalation Q6-8H PRN 03/02/22 12/12/22 (2.5 mg base)/3 mL nebulization soln isosorbide mononitrate 60 mg 120 mg PO DAILY 03/02/22 12/12/22 tablet,extended release 24 hr levothyroxine 50 mcg tablet 50 mcg PO DAILY 03/02/22 12/12/22 (Synthroid) magnesium oxide 400 mg PO DAILY 03/02/22 12/12/22 meclizine 25 mg tablet 25 mg PO TID PRN 03/02/22 12/12/22 metoprolol succinate 50 mg 50 mg PO DAILY 03/02/22 12/12/22 tablet,extended release 24 hr mirtazapine 15 mg tablet 7.5 mg PO DAILY PRN 03/02/22 12/12/22 naloxone 4 mg/actuation nasal spray 4 mg intranasal Q2-3M PRN 03/02/22 12/12/22 nitroglycerin 0.4 mg sublingual 0.4 mg sublingual Q5M 03/02/22 12/12/22 tablet (Nitrostat) ondansetron HCl 4 mg tablet 4 mg PO Q8H PRN 03/02/22 12/12/22 prazosin 2 mg capsule 4 mg PO HS 03/02/22 12/12/22 rosuvastatin 20 mg tablet (Crestor) 20 mg PO DAILY 03/02/22 12/12/22 sennosides 8.6 mg-docusate sodium 2 tab PO BID 03/02/22 12/12/22 50 mg tablet sodium chloride 0.65 % nasal spray 2 spray intranasal Q2H PRN 03/02/22 12/12/22 aerosol (Nasal [place] (sodium chloride)) tiotropium bromide 18 mcg capsule 1 cap inhalation DAILY 03/02/22 09/03/22 with inhalation device (Spiriva with HandiHaler) albuterol sulfate 90 mcg/actuation 2 puff inhalation Q4H PRN 03/30/22 12/12/22 aerosol inhaler buprenorphine HCl 2 mg sublingual 2 mg sublingual TID 03/30/22 12/12/22 tablet mirtazapine 30 mg tablet 30 mg PO HS 03/30/22 12/12/22 Previous Rx's Medication Instructions Recorded potassium chloride 20 mEq 40 meq PO DAILY #60 tabs 04/02/22 tablet,extended release(part/cryst) torsemide 20 mg tablet 20 mg PO BID #60 tabs 04/02/22 Allergies Allergy/AdvReac Type Severity Reaction Status Date / Time sumatriptan Allergy Severe Anaphylaxis Verified 12/12/22 16:57 buspirone Allergy Intermediate Rash Verified 12/12/22 16:57 fentanyl Allergy Intermediate Verified 12/12/22 16:57 gabapentin Allergy Intermediate gi upset Verified 12/12/22 16:57 niacin Allergy Intermediate Verified 12/12/22 16:57 trazodone Allergy Intermediate Verified 12/12/22 16:57 atorvastatin Allergy Mild myalgia Verified 12/12/22 16:57 codeine Allergy Mild itching Verified 12/12/22 16:57 rizatriptan Allergy Mild Flushing Verified 12/12/22 16:57 Review of Systems Status of ROS: Reports: 6 or more systems reviewed and unremarkable except as noted in History and below [facility] Medical History Acute and chronic respiratory failure ([id number]) ?J96.20 - Acute and chronic respiratory failure, unspecified whether with hypoxia or hypercapnia (ICD-10) Acute confusion ?R41.0 - Disorientation, unspecified (ICD-10) Acute hyponatremia ?E87.1 - Hypo-osmolality and hyponatremia (ICD-10) Acute on chronic heart failure with preserved ejection fraction ?I50.33 - Acute on chronic diastolic (congestive) heart failure (ICD-10) Allergic rhinitis due to pollen ?J30.1 - Allergic rhinitis due to pollen (ICD-10) Anxiety ?F41.9 - Anxiety disorder, unspecified (ICD-10) Arthropathy of spinal facet joint ?M47.819 - Spondylosis without myelopathy or radiculopathy, site unspecified (ICD-10) Asthma ?J45.909 - Unspecified asthma, uncomplicated (ICD-10) CAD (coronary artery disease) ?I25.10 - Atherosclerotic heart disease of [place] coronary artery without angina pectoris (ICD-10) Chest pain ?R07.9 - Chest pain, unspecified (ICD-10) Chronic pain syndrome ?G89.4 - Chronic pain syndrome (ICD-10) Cluster B personality disorder ?F60.89 - Other specific personality disorders (ICD-10) CO2 retention ?E87.2 - Acidosis (ICD-10) Congestive heart failure ?I50.9 - Heart failure, unspecified (ICD-10) Congestive heart failure ?I50.9 - Heart failure, unspecified (ICD-10) COPD (chronic obstructive pulmonary disease) ?J44.9 - Chronic obstructive pulmonary disease, unspecified (ICD-10) Coronary artery disease ?I25.10 - Atherosclerotic heart disease of [place] coronary artery without angina pectoris (ICD-10) Diabetes mellitus type 2 in obese ?E11.69 - Type 2 diabetes mellitus with other specified complication (ICD-10) ?E66.9 - Obesity, unspecified (ICD-10) Edema ?R60.9 - Edema, unspecified (ICD-10) Edema ?R60.9 - Edema, unspecified (ICD-10) Encephalopathy acute ?G93.40 - Encephalopathy, unspecified (ICD-10) GERD (gastroesophageal reflux disease) ?K21.9 - Gastro-esophageal reflux disease without esophagitis (ICD-10) Graves disease ?E05.00 - Thyrotoxicosis with diffuse goiter without thyrotoxic crisis or storm (ICD-10) History of nicotine dependence ?Z87.891 - Personal history of nicotine dependence (ICD-10) Hyperkalemia ?E87.5 - Hyperkalemia (ICD-10) Hyperlipidemia ?E78.5 - Hyperlipidemia, unspecified (ICD-10) Hypokalemia ?E87.6 - Hypokalemia (ICD-10) Hyponatremia ?E87.1 - Hypo-osmolality and hyponatremia (ICD-10) Hypothyroidism ?E03.9 - Hypothyroidism, unspecified (ICD-10) Insomnia ?G47.00 - Insomnia, unspecified (ICD-10) Leukocytosis ?D72.829 - Elevated white blood cell count, unspecified (ICD-10) Lumbar spinal stenosis ?M48.061 - Spinal stenosis, lumbar region without neurogenic claudication (ICD-10) Opioid dependence ?F11.20 - Opioid dependence, uncomplicated (ICD-10) SOCORRO (obstructive sleep apnea) ?G47.33 - Obstructive sleep apnea (adult) (pediatric) (ICD-10) Panic disorder ?F41.0 - Panic disorder [episodic paroxysmal anxiety] (ICD-10) PTSD (post-traumatic stress disorder) ?F43.10 - Post-traumatic stress disorder, unspecified (ICD-10) Recurrent major depression ?F33.9 - Major depressive disorder, recurrent, unspecified (ICD-10) Refractory migraine ?G43.919 - Migraine, unspecified, intractable, without status migrainosus (ICD-10) Respiratory failure ?J96.90 - Respiratory failure, unspecified, unspecified whether with hypoxia or hypercapnia (ICD-10) Secondary polycythemia ?D75.1 - Secondary polycythemia (ICD-10) Type 2 diabetes mellitus with circulatory disorder, without long-term current use of insulin ?E11.59 - Type 2 diabetes mellitus with other circulatory complications (ICD-10) Surgical History Failed CABG (coronary artery bypass graft) ?T82.218A - Other mechanical complication of coronary artery bypass graft, initial encounter (ICD-10) H/O heart artery stent ?Z95.5 - Presence of coronary angioplasty implant and graft (ICD-10) Social History Narrative: Patient lives alone in [place]. Former smoker. No longer smoking. She does not drink alcohol. Her healthcare power of sports attorney is her future [id number], [place]. code status is DNR. Highest level of school completed/degree received: some college, no degree Smoking Status: Current some day smoker What tobacco products do you use: cigarettes Smoking quit date/years: <= 15 years ago Second hand tobacco smoke exposure: No How often do you have a drink containing alcohol: never How often do you have six or more drinks on one occasion: Never AUDIT-C Alcohol total score: 0 Non-prescribed substance use: denies use Caffeine: Yes service: No Exam Narrative: Exam Narrative: Objective: Vital signs are unremarkable O2 sat is a little bit low at 91% on room air HEENT is unremarkable, alert orient x3, noncyanotic Neck is supple Chest diminished air exchange bilaterally no rales or wheezing Heart rhythm regular 2/6 systolic murmur Abdomen obese benign nontender Extremities are no edema neurologic nonfocal good peripheral perfusion skin is warm and dry and periphery. Const: Vital Signs, click to edit/add: Vital Signs - 24 hr 12/12/22 16:57 12/12/22 17:23 12/12/22 17:30 Temperature 97.8 F Pulse Rate 92 87 Pulse Rate [Pulse Oximeter] 90 Respiratory Rate 26 H Blood Pressure Blood Pressure [Ri ght Upper Arm] 132/95 H Pulse Oximetry 91 94 94 Oxygen Delivery Me thod Room Air Oxygen Flow Rate 12/12/22 18:08 12/12/22 17:45 12/12/22 18:00 Temperature Pulse Rate 82 82 Pulse Rate [Pulse Oximeter] Respiratory Rate Blood Pressure Blood Pressure [Ri ght Upper Arm] Pulse Oximetry 99 94 95 Oxygen Delivery Me thod Nasal Cannula Oxygen Flow Rate 2 12/12/22 18:15 12/12/22 18:49 12/12/22 18:50 Temperature Pulse Rate 79 80 Pulse Rate [Pulse Oximeter] Respiratory Rate Blood Pressure 126/78 Blood Pressure [Ri ght Upper Arm] Pulse Oximetry 94 100 Oxygen Delivery Me thod Oxygen Flow Rate 12/12/22 19:00 12/12/22 19:01 12/12/22 19:02 Temperature Pulse Rate 76 74 74 Pulse Rate [Pulse Oximeter] Respiratory Rate Blood Pressure 112/66 Blood Pressure [Ri ght Upper Arm] Pulse Oximetry 100 99 98 Oxygen Delivery Me thod Oxygen Flow Rate 12/12/22 19:30 12/12/22 19:31 Temperature Pulse Rate 76 75 Pulse Rate [Pulse Oximeter] Respiratory Rate Blood Pressure 111/64 Blood Pressure [Ri ght Upper Arm] Pulse Oximetry 99 98 Oxygen Delivery Me thod Oxygen Flow Rate Course Vital Signs Vital signs: Initial Vital Signs Temperature 97.8 F 12/12/22 16:57 Temperature Source Temporal Artery Scan 12/12/22 16:57 Pulse Rate 90 12/12/22 16:57 Respiratory Rate 26 H 12/12/22 16:57 Blood Pressure 132/95 H 12/12/22 16:57 Blood Pressure Mean 107 H 12/12/22 16:57 Blood Pressure Position Supine 12/12/22 16:57 Pulse Oximetry 91 12/12/22 16:57 Oxygen Delivery Method Room Air 12/12/22 16:57 Vital Signs Temperature 97.8 F 12/12/22 16:57 Pulse Rate 90 12/12/22 16:57 Respiratory Rate 26 H 12/12/22 16:57 Blood Pressure 132/95 H 12/12/22 16:57 Pulse Oximetry 91 12/12/22 16:57 Oxygen Delivery Method Room Air 12/12/22 16:57 Temperature 97.8 F 12/12/22 16:57 Pulse Rate 75 12/12/22 19:31 Respiratory Rate 26 H 12/12/22 16:57 Blood Pressure 111/64 12/12/22 19:31 Pulse Oximetry 98 12/12/22 19:31 Oxygen Delivery Method Nasal Cannula 12/12/22 18:08 Oxygen Flow Rate 2 12/12/22 18:08 Medical Decision Making MDM Narrative Medical decision making narrative: [age] year white female with coronary artery disease, congestive heart failure, obstructive sleep apnea, history of chronic narcotic issues, presents with chest pain, weakness, shortness of breath. She describes some pain in her right arm and a little bit between her shoulder blades as well. I think be soares to get a chest CT scan to rule out PE or dissection, will also get a lab troponin, the patient may need hospitalization for monitoring given her history of heart disease and her ongoing chest symptoms. If we get her pain under control, her troponin is reasonable, I think admission here to be reasonable for serial troponins and observation. I think pain control an aspirin appropriate at this time. And will discuss with hospitalists when labs are returned. Addendum: Patient's EKG is unremarkable CT scan of the chest is negative for pulmonary thromboembolism or other abnormality. The patient has required a 2nd dose of morphine I think she might have some chest wall discomfort too. She has had history of narcotic use as well. I think given her heart history however we need to admit her to the observation serial troponins Dr. Mcdaniels kindly will follow. Patient also reports her mom's in hospice in her family members are gathered around and she is concerned and stressed by this happening in her not being present, understandably. Discussed with her that her EKG and troponin look reasonable and need to be followed but I suspect she may have some chest wall component to her pain as well. But need a full monitoring. With a troponin and telemetry. She was comfortable this agrees to stay in the hospital. Lab Data Labs: Lab Results 12/12/22 12/12/22 Range/Units 17:10 17:19 WBC 13.84 H (4.50-11.00) K/uL RBC 5.51 H (4.00-5.20) m/uL Hgb 16.9 H (12.0-16.0) gm/dL Hct 51.4 H (33.0-51.0) % MCV 93 (80-100) fL MCH 31 (26-34) pg MCHC 33 (32-36) gm/dL RDW Coeff of Renetta 14.2 (11.5-15.5) % Plt Count 267 (140-440) K/uL Neut % (Auto) 75.6 H (42.0-72.0) % Lymph % (Auto) 17.6 L (20-44) % [place] % (Auto) 6.1 (0.0-11.0) % Eos % (Auto) 0.1 (0.0-7.0) % Baso % (Auto) 0.2 (0.0-3.0) % Neut # (Auto) 10.50 H (1.7-7.0) K/uL Lymph # (Auto) 2.40 (0.90-2.90) K/uL [place] # (Auto) 0.80 (0.00-0.90) K/UL Eos # (Auto) 0.00 (0.00-0.50) K/uL Baso # (Auto) 0.00 (0.00-0.30) K/uL INR 0.92 (0.91-1.10) Sodium 136 (135-149) mmol/L Potassium 3.9 (3.6-5.1) mmol/L Chloride 102 (96-114) mmol/L Carbon Dioxide 28 (20-32) mmol/L BUN 16 (7-30) mg/dL Creatinine 0.8 (0.5-1.5) mg/dL Estimated Creat Clear 49.72 Estimated GFR 83 ml/min Glucose 133 H (60-115) mg/dL Calcium 9.4 (8.4-10.6) mg/dL Total Bilirubin 0.4 (0.1-1.5) mg/dL Direct Bilirubin 0.3 (0.0-0.5) mg/dL AST 28 (12-35) U/L ALT 21 (4-35) U/L Alkaline Phosphatase 109 (40-150) U/L Troponin I < 0.01 L (0.01-0.04) ng/mL C-Reactive Protein 0.7 (0.5-1.0) mg/dL NT-Pro-B Natriuret Pep 59 pg/mL Total Protein 8.2 (6.0-8.3) g/dL Albumin 4.7 (3.3-5.0) g/dL SARS-CoV-2 (PCR) Negative SARS-CoV-2 (Negative) Influenza Type A (PCR) Negative PCR FLU A (Negative) Influenza Type B (PCR) Negative PCR FLU B (Negative) RSV (PCR) Negative PCR RSV (Negative) Discharge Plan Discharge Clinical Impression: Acute on chronic heart failure with preserved ejection fraction, COPD (chronic obstructive pulmonary disease), Chest pain Patient Disposition: Admitted As Inpatient
[2022-12-12] MEDS: ASPIRIN 81 MG TAB.CHEW 324 MG PO (17:29)
[2022-12-12] MEDS: MORPHINE 4 MG/ML INJ IVP (17:31)
--- NOTE | 2022-12-12 18:01 | ED.NURSE ---
pulse ox 88%, O2 applied via nc at 2L, now 92%
[2022-12-12 18:08] LABS: Basophils Percent Auto 0.2 % (0.0-3.0); Eosinophils Percent Auto 0.1 % (0.0-7.0); Hematocrit 51.4 % (33.0-51.0); Hemoglobin* 16.9 gm/dL (12.0-16.0); Immature Granulocytes Pct Auto 0.4 %; Lymphocytes Percent Auto 17.6 % (20-44); Mean Corpuscular HGB Conc 33 gm/dL (32-36); Mean Corpuscular Hemoglobin 31 pg (26-34); Mean Corpuscular Volume 93 fL (80-100); Monocytes Percent Auto 6.1 % (0.0-11.0); Neutrophils Percent Auto 75.6 % (42.0-72.0); Platelet Count* 267 K/uL (140-440); RDW Coefficient of Variation % 14.2 % (11.5-15.5); Red Blood Count 5.51 m/uL (4.00-5.20); White Blood Count* 13.84 K/uL (4.50-11.00)
[2022-12-12 18:12] LABS: PCR FLU A Negative PCR FLU A (Negative); PCR FLU B Negative PCR FLU B (Negative); PCR RSV Negative PCR RSV (Negative)
[2022-12-12 18:15] LABS: INR 0.92 (0.91-1.10); Prothrombin Time 12.9 Seconds
[2022-12-12 18:16] LABS: Slide Review Reflex No
[2022-12-12 18:18] LABS: Albumin* 4.7 g/dL (3.3-5.0); Chloride* 102 mmol/L (96-114); Sodium* 136 mmol/L (135-149)
[2022-12-12 18:19] LABS: Potassium* 3.9 mmol/L (3.6-5.1)
[2022-12-12 18:21] LABS: Creatinine* 0.8 mg/dL (0.5-1.5); Est. Creatinine Clearance* 49.72; Estimated Glomerular Filt Rate 83 ml/min
[2022-12-12 18:22] LABS: Alanine Aminotransferase* 21 U/L (4-35); Alkaline Phosphatase* 109 U/L (40-150); Aspartate Amino Transferase* 28 U/L (12-35); Bilirubin Direct* 0.3 mg/dL (0.0-0.5); Bilirubin Total* 0.4 mg/dL (0.1-1.5); Blood Urea Nitrogen* 16 mg/dL (7-30); Calcium* 9.4 mg/dL (8.4-10.6); Carbon Dioxide* 28 mmol/L (20-32); Glucose* 133 mg/dL (60-115); Total Protein* 8.2 g/dL (6.0-8.3)
[2022-12-12 18:25] LABS: C Reactive Protein* 0.7 mg/dL (0.5-1.0)
[2022-12-12 18:31] LABS: NT Pro B Type NatriureticPept* 59 pg/mL
[2022-12-12 18:33] LABS: Troponin I* < 0.01 ng/mL (0.01-0.04)
[2022-12-12 19:02] LABS: SARS PCR* Negative SARS-CoV-2 (Negative)
[2022-12-12] MEDS: MORPHINE 2 MG/ML inj IVP (19:11)
--- NOTE | 2022-12-12 19:37 | ED.NURSE ---
Social Service Director introduced self to patient. She reports that her pain is currently a 4/10. She reports that is comfortable for her. BP currently 111/64. Declines Nitro at this time.
--- NOTE | 2022-12-12 20:05 | ED.NURSE ---
Report to Maggie on Med Surg. Patient will go to CCU 1
--- NOTE | 2022-12-12 20:19 | PM.IMHP1 ---
Hospitalist- H&P: HPI History of Present Illness Date Seen: 12/12/22 Chief complaint: Chest pain, difficulty breathing Narrative: Meg Monahan is a 62 year old female who presented to the ED by EMS for chest pain. Patient has noted chest pain for the past 4-5 days, worse in the 24 hours. Chest pain radiated into her R arm, back and neck. She had accompanying dyspnea (intermittent). She tried nitroglycerin at home without relief. Meg still has her gallbladder, no nausea or vomiting. No stool changes. She notes that she has had a flare of her chronic anxiety, as her mom is currently on hospice. ER Course and Findings: - reassuring EKG and troponin - no acute findings on CTA of chest - treated with Morphine, good relief Lives in [place], alone. Dr. Dill is PCP. Dr. Reeves is psychiatrist. History updated below. Katerina Santacruz (son's shala) would be medical decision maker if needed. She requests Full Code status. Review of Systems Status of ROS: Reports: 10 or more systems reviewed and unremarkable except as noted in History and below [facility] Medical History (Updated 12/12/22 @ 22:57 by Amena Park MD) Acute and chronic respiratory failure ([id number]) ?J96.20 - Acute and chronic respiratory failure, unspecified whether with hypoxia or hypercapnia (ICD-10) Acute hyponatremia ?E87.1 - Hypo-osmolality and hyponatremia (ICD-10) Acute on chronic heart failure with preserved ejection fraction ?I50.33 - Acute on chronic diastolic (congestive) heart failure (ICD-10) Allergic rhinitis due to pollen ?J30.1 - Allergic rhinitis due to pollen (ICD-10) Anxiety ?F41.9 - Anxiety disorder, unspecified (ICD-10) Arthropathy of spinal facet joint ?M47.819 - Spondylosis without myelopathy or radiculopathy, site unspecified (ICD-10) Asthma ?J45.909 - Unspecified asthma, uncomplicated (ICD-10) CAD (coronary artery disease) ?I25.10 - Atherosclerotic heart disease of [place] coronary artery without angina pectoris (ICD-10) Chest pain ?R07.9 - Chest pain, unspecified (ICD-10) Chronic pain syndrome ?G89.4 - Chronic pain syndrome (ICD-10) Cluster B personality disorder ?F60.89 - Other specific personality disorders (ICD-10) CO2 retention ?E87.2 - Acidosis (ICD-10) Congestive heart failure ?I50.9 - Heart failure, unspecified (ICD-10) Congestive heart failure ?I50.9 - Heart failure, unspecified (ICD-10) COPD (chronic obstructive pulmonary disease) ?J44.9 - Chronic obstructive pulmonary disease, unspecified (ICD-10) Coronary artery disease ?I25.10 - Atherosclerotic heart disease of [place] coronary artery without angina pectoris (ICD-10) Diabetes mellitus type 2 in obese ?E11.69 - Type 2 diabetes mellitus with other specified complication (ICD-10) ?E66.9 - Obesity, unspecified (ICD-10) Edema ?R60.9 - Edema, unspecified (ICD-10) Encephalopathy acute ?G93.40 - Encephalopathy, unspecified (ICD-10) GERD (gastroesophageal reflux disease) ?K21.9 - Gastro-esophageal reflux disease without esophagitis (ICD-10) Graves disease ?E05.00 - Thyrotoxicosis with diffuse goiter without thyrotoxic crisis or storm (ICD-10) History of nicotine dependence ?Z87.891 - Personal history of nicotine dependence (ICD-10) Hyperkalemia ?E87.5 - Hyperkalemia (ICD-10) Hyperlipidemia ?E78.5 - Hyperlipidemia, unspecified (ICD-10) Hypokalemia ?E87.6 - Hypokalemia (ICD-10) Hyponatremia ?E87.1 - Hypo-osmolality and hyponatremia (ICD-10) Hypothyroidism ?E03.9 - Hypothyroidism, unspecified (ICD-10) Insomnia ?G47.00 - Insomnia, unspecified (ICD-10) Leukocytosis ?D72.829 - Elevated white blood cell count, unspecified (ICD-10) Lumbar spinal stenosis ?M48.061 - Spinal stenosis, lumbar region without neurogenic claudication (ICD-10) Opioid dependence ?F11.20 - Opioid dependence, uncomplicated (ICD-10) SOCORRO (obstructive sleep apnea) ?G47.33 - Obstructive sleep apnea (adult) (pediatric) (ICD-10) Panic disorder ?F41.0 - Panic disorder [episodic paroxysmal anxiety] (ICD-10) PTSD (post-traumatic stress disorder) ?F43.10 - Post-traumatic stress disorder, unspecified (ICD-10) Recurrent major depression ?F33.9 - Major depressive disorder, recurrent, unspecified (ICD-10) Refractory migraine ?G43.919 - Migraine, unspecified, intractable, without status migrainosus (ICD-10) Respiratory failure ?J96.90 - Respiratory failure, unspecified, unspecified whether with hypoxia or hypercapnia (ICD-10) Secondary polycythemia ?D75.1 - Secondary polycythemia (ICD-10) Type 2 diabetes mellitus with circulatory disorder, without long-term current use of insulin ?E11.59 - Type 2 diabetes mellitus with other circulatory complications (ICD-10) Surgical History Failed CABG (coronary artery bypass graft) ?T82.218A - Other mechanical complication of coronary artery bypass graft, initial encounter (ICD-10) H/O heart artery stent ?Z95.5 - Presence of coronary angioplasty implant and graft (ICD-10) Social History Narrative: Patient lives alone in [place]. Former smoker. No longer smoking. She does not drink alcohol. Her healthcare power of car escort is her future [id number], [employer]. code status is DNR. Highest level of school completed/degree received: some college, no degree Smoking Status: Former smoker What tobacco products do you use: cigarettes Smoking quit date/years: >15 years ago Second hand tobacco smoke exposure: No How often do you have a drink containing alcohol: never How often do you have six or more drinks on one occasion: Never AUDIT-C Alcohol total score: 0 Non-prescribed substance use: denies use Caffeine: Yes service: No Meds Home Medications and Allergies Home Medications Medication Instructions Recorded Confirmed Type alprazolam 0.5 mg tablet (Xanax) 0.5 mg PO BID PRN 03/02/22 12/12/22 History aspirin 81 mg chewable tablet 81 mg PO DAILY 03/02/22 12/12/22 History budesonide-formoterol HFA 160 2 inh inhalation BID 03/02/22 12/12/22 History mcg-4.5 mcg/actuation aerosol inhaler clopidogrel 75 mg tablet (Plavix) 75 mg PO DAILY 03/02/22 12/12/22 History escitalopram oxalate 20 mg tablet 20 mg PO DAILY 03/02/22 12/12/22 History esomeprazole magnesium 40 mg 40 mg PO DAILY 03/02/22 12/12/22 History capsule,delayed release (Nexium) ezetimibe 10 mg tablet (Zetia) 10 mg PO DAILY 03/02/22 12/12/22 History glimepiride 1 mg tablet 2 mg PO BID 03/02/22 12/12/22 History ipratropium 0.5 mg-albuterol 3 mg 3 ml inhalation Q6-8H PRN 03/02/22 12/12/22 History (2.5 mg base)/3 mL nebulization soln isosorbide mononitrate 60 mg 120 mg PO DAILY 03/02/22 12/12/22 History tablet,extended release 24 hr levothyroxine 50 mcg tablet 50 mcg PO DAILY 03/02/22 12/12/22 History (Synthroid) magnesium oxide 400 mg PO DAILY 03/02/22 12/12/22 History meclizine 25 mg tablet 25 mg PO TID PRN 03/02/22 12/12/22 History metoprolol succinate 50 mg 50 mg PO DAILY 03/02/22 12/12/22 History tablet,extended release 24 hr mirtazapine 15 mg tablet 7.5 mg PO DAILY PRN 03/02/22 12/12/22 History naloxone 4 mg/actuation nasal spray 4 mg intranasal Q2-3M PRN 03/02/22 12/12/22 History nitroglycerin 0.4 mg sublingual 0.4 mg sublingual Q5M 03/02/22 12/12/22 History tablet (Nitrostat) ondansetron HCl 4 mg tablet 4 mg PO Q8H PRN 03/02/22 12/12/22 History prazosin 2 mg capsule 4 mg PO HS 03/02/22 12/12/22 History rosuvastatin 20 mg tablet (Crestor) 20 mg PO DAILY 03/02/22 12/12/22 History sennosides 8.6 mg-docusate sodium 2 tab PO BID 03/02/22 12/12/22 History 50 mg tablet sodium chloride 0.65 % nasal spray 2 spray intranasal Q2H PRN 03/02/22 12/12/22 History aerosol (Nasal [place] (sodium chloride)) tiotropium bromide 18 mcg capsule 1 cap inhalation DAILY 03/02/22 12/12/22 History with inhalation device (Spiriva with HandiHaler) albuterol sulfate 90 mcg/actuation 2 puff inhalation Q4H PRN 03/30/22 12/12/22 History aerosol inhaler buprenorphine HCl 2 mg sublingual 2 mg sublingual QID 03/30/22 12/12/22 History tablet mirtazapine 30 mg tablet 30 mg PO HS 03/30/22 12/12/22 History empagliflozin 25 mg tablet 25 mg PO DAILY 12/12/22 12/12/22 History (Jardiance) quetiapine 200 mg tablet 200 mg PO QPM 12/12/22 12/12/22 History Allergies Allergy/AdvReac Type Severity Reaction Status Date / Time sumatriptan Allergy Severe Anaphylaxis Verified 12/12/22 16:57 buspirone Allergy Intermediate Rash Verified 12/12/22 16:57 fentanyl Allergy Intermediate Verified 12/12/22 16:57 gabapentin Allergy Intermediate gi upset Verified 12/12/22 16:57 niacin Allergy Intermediate Verified 12/12/22 16:57 trazodone Allergy Intermediate Verified 12/12/22 16:57 atorvastatin Allergy Mild myalgia Verified 12/12/22 16:57 codeine Allergy Mild itching Verified 12/12/22 16:57 rizatriptan Allergy Mild Flushing Verified 12/12/22 16:57 Exam Narrative: Exam Narrative: GEN: Alert and oriented, sitting comfortably in bed and answering questions in full sentences. Nontoxic in appearance HEENT: EOMIs bilaterally, no scleral icterus CV: RRR, soft systolic murmur without concerning features R: LCTA bilaterally without concerning wheezing, air movement adequate Skin: No concerning skin lesions or rashes on exposed skin Neuro: No focal deficits, no resting tremor, gait not observed Psych: Appropriate Const: Vital Signs, click to edit/add: Vital Signs - 24 hr 12/12/22 16:57 12/12/22 17:23 12/12/22 17:30 Temperature 97.8 F Pulse Rate 92 87 Pulse Rate [Pulse Oximeter] 90 Respiratory Rate 26 H Blood Pressure Blood Pressure [Ri ght Upper Arm] 132/95 H Pulse Oximetry 91 94 94 Oxygen Delivery Me thod Room Air Oxygen Flow Rate 12/12/22 18:08 12/12/22 17:45 12/12/22 18:00 Temperature Pulse Rate 82 82 Pulse Rate [Pulse Oximeter] Respiratory Rate Blood Pressure Blood Pressure [Ri [facility] Upper [place]] Pulse Oximetry 99 94 95 Oxygen Delivery Me thod Nasal Cannula Oxygen Flow Rate 2 12/12/22 18:15 12/12/22 18:49 12/12/22 18:50 Temperature Pulse Rate 79 80 Pulse Rate [Pulse Oximeter] Respiratory Rate Blood Pressure 126/78 Blood Pressure [Ri t Upper Arm] Pulse Oximetry 94 100 Oxygen Delivery Me thod Oxygen Flow Rate 12/12/22 19:00 12/12/22 19:01 12/12/22 19:02 Temperature Pulse Rate 76 74 74 Pulse Rate [Pulse Oximeter] Respiratory Rate Blood Pressure 112/66 Blood Pressure [Ri t Upper Arm] Pulse Oximetry 100 99 98 Oxygen Delivery Me thod Oxygen Flow Rate 12/12/22 19:30 12/12/22 19:31 12/12/22 19:32 Temperature Pulse Rate 76 75 75 Pulse Rate [Pulse Oximeter] Respiratory Rate 18 Blood Pressure 111/64 112/69 Blood Pressure [Ri t Upper Arm] Pulse Oximetry 99 98 99 Oxygen Delivery Me thod Oxygen Flow Rate Hospitalist - H&P: Result Labs Labs: Short CBC 12/12/22 Range/Units 17:10 WBC 13.84 H (4.50-11.00) K/uL Hgb 16.9 H (12.0-16.0) gm/dL Hct 51.4 H (33.0-51.0) % Plt Count 267 (140-440) K/uL BMP 12/12/22 17:10 Sodium 136 Potassium 3.9 Chloride 102 Carbon Dioxide 28 BUN 16 Creatinine 0.8 Glucose 133 H Calcium 9.4 Cardiac Enzymes 12/12/22 Range/Units 17:10 Troponin I < 0.01 L (0.01-0.04) ng/mL Liver Function 12/12/22 Range/Units 17:10 Total Bilirubin 0.4 (0.1-1.5) mg/dL Direct Bilirubin 0.3 (0.0-0.5) mg/dL AST 28 (12-35) U/L ALT 21 (4-35) U/L Alkaline Phosphatase 109 (40-150) U/L Albumin 4.7 (3.3-5.0) g/dL Assessment and Plan Assessment and plan (1) Chest pain: Problem comment: - differential diagnosis: ACS, muscular, angina, anxiety - follow troponins and telemetry, repeat echocardiogram - continue home medications Status: Acute (2) CAD (coronary artery disease): Problem comment: - last TTE 02/2022: Final Impressions: 1. Normal left ventricular size, normal wall thickness, normal global systolic function, calculated EF of 72 %. 2. Right ventricular cavity size is normal, global systolic RV function is normal. 3. The aortic valve is trileaflet and sclerotic, no stenosis and trivial regurgitation. 4. No other significant valve disease detected. Status: Acute (3) SOCORRO (obstructive sleep apnea): Problem comment: - uses CPAP at home Status: Acute (4) COPD (chronic obstructive pulmonary disease): Problem comment: - stable at this time with no evidence of exacerbation on admission Status: Acute (5) Chronic narcotic use: Problem comment: - followed by [facility] pain clinic; as of 12/12/22 is on Methocarbamol 500mg BID and Buprenorphine 2mg QID Status: Acute (6) Anxiety: Problem comment: - continue home medications Status: Acute Plan - per above - Aspirin, Plavix, ambulation, SCDs for prophylaxis - patient plans to discharge home when medically stable
[2022-12-12] MEDS: MIRTAZAPINE 15 MG TABLET 30 MG PO (22:31)
[2022-12-12] MEDS: buprenorphine HCL 2 MG TAB.SUBL SL (22:31)
[2022-12-12] MEDS: SENNOSIDES/DOCUSATE TABLET 2 TAB PO (22:32)
[2022-12-12] MEDS: EZETIMIBE 10 MG TABLET PO (22:32)
[2022-12-12] MEDS: POTASSIUM CITRATE 10 MEQ TABLET.ER 40 MEQ PO (22:33)
[2022-12-12] MEDS: ISOSORBIDE MONONITRATE ER 30 MG TAB 120 MG PO (22:33)
[2022-12-12] MEDS: QUETIAPINE 100 MG TABLET 200 MG PO (22:34)
[2022-12-12 23:31] LABS: Thyroid Stimulating Hormone* 0.897 uIU/mL (0.270-4.20)
[2022-12-12 23:37] LABS: Troponin I* < 0.01 ng/mL (0.01-0.04)
[2022-12-13] MEDS: ALPRAZolam 0.25 MG TABLET 0.5 MG PO ×2 (00:15→08:52)
[2022-12-13] MEDS: ACETAMINOPHEN 325 MG TABLET 975 MG PO (01:19)
[2022-12-13] MEDS: LORazepam 0.5 MG TABLET PO (01:21)
[2022-12-13 03:00] VITALS: BP 113/63; PULSE 87; RESP 18; TEMP 36.8; O2SAT 93
--- NOTE | 2022-12-13 04:53 | PC.NURSE ---
Pt pleasant and cooperative, rating chest pain 4/10 entire shift, denies SOB, difficulty breathing, dizziness/lightheadedness and nausea. 1LPM O2 while sleeping to maintain sats >90%, pt at 87% while sleeping on RA. up ind in room, tolerating activity well.
[2022-12-13 06:51] LABS: Basophils Percent Auto 0.4 % (0.0-3.0); Eosinophils Percent Auto 0.2 % (0.0-7.0); Hematocrit 44.6 % (33.0-51.0); Hemoglobin* 14.7 gm/dL (12.0-16.0); Immature Granulocytes Pct Auto 0.3 %; Lymphocytes Percent Auto 23.1 % (20-44); Mean Corpuscular HGB Conc 33 gm/dL (32-36); Mean Corpuscular Hemoglobin 31 pg (26-34); Mean Corpuscular Volume 95 fL (80-100); Monocytes Percent Auto 8.1 % (0.0-11.0); Neutrophils Percent Auto 67.9 % (42.0-72.0); Platelet Count* 242 K/uL (140-440); RDW Coefficient of Variation % 14.2 % (11.5-15.5); Red Blood Count 4.71 m/uL (4.00-5.20); White Blood Count* 11.44 K/uL (4.50-11.00)
[2022-12-13 06:58] LABS: Slide Review Reflex No
[2022-12-13 07:00] VITALS: RESP 16; O2SAT 94
[2022-12-13 07:13] LABS: Albumin* 3.8 g/dL (3.3-5.0); Chloride* 101 mmol/L (96-114); Sodium* 134 mmol/L (135-149)
[2022-12-13 07:14] LABS: Potassium* 3.8 mmol/L (3.6-5.1)
[2022-12-13 07:15] LABS: Creatinine* 0.8 mg/dL (0.5-1.5); Est. Creatinine Clearance* 49.72; Estimated Glomerular Filt Rate 83 ml/min
[2022-12-13 07:16] LABS: Alanine Aminotransferase* 17 U/L (4-35); Alkaline Phosphatase* 75 U/L (40-150); Aspartate Amino Transferase* 20 U/L (12-35); Bilirubin Total* 0.3 mg/dL (0.1-1.5); Blood Urea Nitrogen* 18 mg/dL (7-30); Calcium* 8.6 mg/dL (8.4-10.6); Carbon Dioxide* 32 mmol/L (20-32); Glucose* 123 mg/dL (60-115); Lipase* 46 U/L (23-300); Total Protein* 6.7 g/dL (6.0-8.3)
[2022-12-13 07:26] VITALS: PULSE 69
[2022-12-13 07:28] LABS: Troponin I* < 0.01 ng/mL (0.01-0.04)
[2022-12-13 07:37] VITALS: BP 101/63; PULSE 71; RESP 16; TEMP 36.5; O2SAT 94
[2022-12-13] MEDS: OMEPRAZOLE 20 MG CAPSULE DR 40 MG PO (08:35)
[2022-12-13] MEDS: LEVOTHYROXINE 50 MCG TABLET PO (08:37)
[2022-12-13] MEDS: SENNOSIDES/DOCUSATE TABLET 2 TAB PO (08:37)
[2022-12-13] MEDS: GLIMEPIRIDE 1 MG TABLET 2 MG PO (08:38)
[2022-12-13] MEDS: buprenorphine HCL 2 MG TAB.SUBL SL (08:40)
[2022-12-13] MEDS: MAGNESIUM OXIDE 400 MG TABLET PO (08:40)
[2022-12-13] MEDS: CLOPIDOGREL 75 MG TABLET PO (08:44)
[2022-12-13] MEDS: TORSEMIDE 20 MG TABLET PO (08:44)
[2022-12-13] MEDS: ROSUVASTATIN CALCIUM 10 MG TABLET 20 MG PO (08:44)
[2022-12-13] MEDS: EMPAGLIFLOZIN 10 MG TABLET 25 MG PO (08:45)
[2022-12-13] MEDS: ASPIRIN 81 MG TAB.CHEW PO (08:45)
[2022-12-13] MEDS: METOPROLOL SUCCINATE (XL) 50 MG TAB PO (08:45)
[2022-12-13] MEDS: SODIUM CHLORIDE 0.9 % (FLUSH) 10 ML SYRINGE 5 ML IVF (08:52)
--- NOTE | 2022-12-13 09:21 | P.DS_ITS ---
DS: Providers Provider Time Seen by Provider: 09:21 Date Seen: 12/13/22 Date of admission: 12/12/22 23:02 Primary care physician: Moreno Dill MD Admitting Clinician: Amena Park MD Attending Physician on discharge: Joseluis Ramirez MD Date of Discharge: 12/13/22 DS: Diagnosis Discharge Diagnosis (1) Chest pain: Status: Acute Problem details: - differential diagnosis: ACS, muscular, angina, anxiety, vasospasm - serial troponins times three are all less than 0.01 - most likely working diagnoses are vasospasm and or anxiety (2) CAD (coronary artery disease): Status: Acute Problem details: - last TTE 02/2022: Final Impressions: 1. Normal left ventricular size, normal wall thickness, normal global systolic function, calculated EF of 72 %. 2. Right ventricular cavity size is normal, global systolic RV function is normal. 3. The aortic valve is trileaflet and sclerotic, no stenosis and trivial regurgitation. 4. No other significant valve disease detected. Patient had an Angiogram at [facility] in 09/2021 that showed patent stents and grafts. Medical management was recommended. She had a normal follow-up exam with Cardiology in March of 2022 and is scheduled for a cardiology follow-up visit on 12/21/2022. Her coronary artery disease and congestive heart failure is addressed these cardiology appointments. Patient refused an outpatient stress testing she wants to talk to her car diologist 1st. She is under lot of stress right now with her mother in the dying process. (3) Acute on chronic heart failure with preserved ejection fraction: Status: Acute (4) Anxiety: Status: Acute Problem details: - continue home medications (5) Polypharmacy: Status: Acute (6) SOCORRO (obstructive sleep apnea): Status: Acute Problem details: - uses CPAP at home (7) COPD (chronic obstructive pulmonary disease): Status: Acute Problem details: - stable at this time with no evidence of exacerbation on admission (8) Chronic pain: Status: Acute (9) Chronic narcotic use: Status: Acute Problem details: - followed by [facility] pain clinic; as of 12/12/22 is on Methocarbamol 500mg BID and Buprenorphine 2mg QID (10) Acute sinusitis: Status: Acute Problem details: Placed her on amoxicillin 875 mg b.i.d. times 10 days. (11) Asthma: Status: Acute Problem details: Continue her on her usual inhalers. Placed her on a burst and taper of prednisone. DS: Summary Hospital Course Hospital Course: Meg reports that she had been having intermittent chest pain for about 4 days leading up until yesterday when she presented to the ER with the worst chest pain over the last 4 days. Her chest pain resolved in the ER and she did not have any more chest pain while in the hospital. Serial cardiac enzymes x3 were less than 0.01 EKG is reassuring She felt well on the day of discharge and was eager to go home. She has a routine scheduled cardiology appointment in 8 days that she will be sure to keep. She refused my suggestion to do a stress test stating she wants to discuss this with Cardiology 1st. She agrees to re- presented to the ER if she should have any persisting chest pain. She reports that she has had cold symptoms for last 2 weeks that over the last week or so settled in her sinuses. She has thickened yellow discharge from her sinuses. She has maxillary sinus tenderness. She has had 2- COVID tests. She requests antibiotics for sinus symptoms. She has asthma that she takes scheduled inhalers for. She has had a mild flare- up of her asthma with her upper respiratory infection with more wheezing lately. She reports that a prednisone burst and taper has helped with these types of symptoms in the past. Time Spent with Patient Time attestation: Total time spent providing and/or coordinating discharge services: Time spent: Greater than 30 minutes Exam Const: Vital Signs, click to edit/add: Vital Signs - 24 hr 12/12/22 16:57 12/12/22 17:23 12/12/22 17:30 Temperature 97.8 F Pulse Rate 92 87 Pulse Rate [Pulse Oximeter] 90 Respiratory Rate 26 H Blood Pressure Blood Pressure [Le ft Arm] Blood Pressure [Ri ght Upper Arm] 132/95 H Pulse Oximetry 91 94 94 Oxygen Delivery Me thod Room Air Oxygen Flow Rate 12/12/22 18:08 12/12/22 17:45 12/12/22 18:00 Temperature Pulse Rate 82 82 Pulse Rate [Pulse Oximeter] Respiratory Rate Blood Pressure Blood Pressure [Le ft Arm] Blood Pressure [Ri ght Upper Arm] Pulse Oximetry 99 94 95 Oxygen Delivery Me thod Nasal Cannula Oxygen Flow Rate 2 12/12/22 18:15 12/12/22 18:49 12/12/22 18:50 Temperature Pulse Rate 79 80 Pulse Rate [Pulse Oximeter] Respiratory Rate Blood Pressure 126/78 Blood Pressure [Le ft Arm] Blood Pressure [Ri ght Upper Arm] Pulse Oximetry 94 100 Oxygen Delivery Me thod Oxygen Flow Rate 12/12/22 19:00 12/12/22 19:01 12/12/22 19:02 Temperature Pulse Rate 76 74 74 Pulse Rate [Pulse Oximeter] Respiratory Rate Blood Pressure 112/66 Blood Pressure [Le ft Arm] Blood Pressure [Ri ght Upper Arm] Pulse Oximetry 100 99 98 Oxygen Delivery Me thod Oxygen Flow Rate 12/12/22 19:30 12/12/22 19:31 12/12/22 19:32 Temperature Pulse Rate 76 75 75 Pulse Rate [Pulse Oximeter] Respiratory Rate 18 Blood Pressure 111/64 112/69 Blood Pressure [Le ft Arm] Blood Pressure [Ri ght Upper Arm] Pulse Oximetry 99 98 99 Oxygen Delivery Me thod Oxygen Flow Rate 12/12/22 20:33 12/12/22 20:33 12/12/22 23:00 Temperature 98.3 F Pulse Rate Pulse Rate [Pulse Oximeter] 77 Respiratory Rate 18 18 Blood Pressure Blood Pressure [Le ft Arm] 127/79 Blood Pressure [Ri ght Upper Arm] Pulse Oximetry 93 93 Oxygen Delivery Me thod Room Air Room Air Oxygen Flow Rate 12/12/22 23:00 12/12/22 23:00 12/13/22 03:00 Temperature 98.3 F 98.3 F Pulse Rate 77 Pulse Rate [Pulse Oximeter] 83 87 Respiratory Rate 18 18 Blood Pressure Blood Pressure [Le ft Arm] 98/73 113/63 Blood Pressure [Ri ght Upper Arm] Pulse Oximetry 93 93 Oxygen Delivery Me thod Room Air Nasal Cannula Oxygen Flow Rate 1 12/13/22 07:37 12/13/22 07:26 Temperature 97.7 F Pulse Rate 69 Pulse Rate [Pulse Oximeter] 71 Respiratory Rate 16 Blood Pressure Blood Pressure [Le ft Arm] 101/63 Blood Pressure [Ri ght Upper Arm] Pulse Oximetry 94 Oxygen Delivery Me thod Room Air Oxygen Flow Rate HEENT - she has tenderness over maxillary sinuses. Cardiovascular regular rate and rhythm without murmur. No chest wall tenderness to palpation. Lungs she has diffuse mild expiratory wheezes most prominent at the bases. No crackles are present. Respirations are easy nonlabored and good air movement is noted Abdomen positive bowel sounds soft and nontender Extremities - she moves all extremities equally there is no edema and no calf tenderness. Dermatologic - skin is without rashes. DS: Data Data Completed and Pending Completed studies during hospitalization: Procedures Assistance with Respiratory Ventilation, 24-96 Consecutive Hours, Continuous Positive Airway Pressure (03/29/22) Introduction of Other Gas into Respiratory Tract, Via Natural or Artificial Opening (03/02/22) Labs on day of discharge: Labs from last 24 hours 12/13/22 12/12/22 12/12/22 06:10 23:00 17:19 WBC 11.44 H RBC 4.71 Hgb 14.7 Hct 44.6 MCV 95 MCH 31 MCHC 33 RDW Coeff of Renetta 14.2 Plt Count 242 Neut % (Auto) 67.9 Lymph % (Auto) 23.1 [place] % (Auto) 8.1 Eos % (Auto) 0.2 Baso % (Auto) 0.4 Neut # (Auto) 7.80 H Lymph # (Auto) 2.60 [place] # (Auto) 0.90 Eos # (Auto) 0.00 Baso # (Auto) 0.00 INR Sodium 134 L Potassium 3.8 Chloride 101 Carbon Dioxide 32 BUN 18 Creatinine 0.8 Estimated Creat Clear 49.72 Estimated GFR 83 Glucose 123 H Calcium 8.6 Total Bilirubin 0.3 Direct Bilirubin AST 20 ALT 17 Alkaline Phosphatase 75 Troponin I < 0.01 L < 0.01 L C-Reactive Protein NT-Pro-B Natriuret Pep Total Protein 6.7 Albumin 3.8 Lipase 46 TSH SARS-CoV-2 (PCR) Negative SARS-CoV-2 Influenza Type A (PCR) Negative PCR FLU A Influenza Type B (PCR) Negative PCR FLU B RSV (PCR) Negative PCR RSV 12/12/22 17:10 WBC 13.84 H RBC 5.51 H Hgb 16.9 H Hct 51.4 H MCV 93 MCH 31 MCHC 33 RDW Coeff of Renetta 14.2 Plt Count 267 Neut % (Auto) 75.6 H Lymph % (Auto) 17.6 L [place] % (Auto) 6.1 Eos % (Auto) 0.1 Baso % (Auto) 0.2 Neut # (Auto) 10.50 H Lymph # (Auto) 2.40 [place] # (Auto) 0.80 Eos # (Auto) 0.00 Baso # (Auto) 0.00 INR 0.92 Sodium 136 Potassium 3.9 Chloride 102 Carbon Dioxide 28 BUN 16 Creatinine 0.8 Estimated Creat Clear 49.72 Estimated GFR 83 Glucose 133 H Calcium 9.4 Total Bilirubin 0.4 Direct Bilirubin 0.3 AST 28 ALT 21 Alkaline Phosphatase 109 Troponin I < 0.01 L C-Reactive Protein 0.7 NT-Pro-B Natriuret Pep 59 Total Protein 8.2 Albumin 4.7 Lipase TSH 0.897 SARS-CoV-2 (PCR) Influenza Type A (PCR) Influenza Type B (PCR) RSV (PCR) Imaging CT scan - chest: Radiologist's impression: INDICATION: Chest pain COMPARISON: CT 01/10/2022 TECHNIQUE: CT volumetric acquisition was performed of the thorax during intravenous infusion of 95 cc of Omnipaque-350 nonionic intravenous contrast. Please note that all CT scans at this facility use dose modulation, iterative reconstruction, and/or weight-based dosing when appropriate to reduce radiation dose to as low as reasonably achievable. FINDINGS: There is no pulmonary embolism in the main, lobar segmental pulmonary arteries. Emphysematous changes are suspected. Tiny bilateral nodules measuring 4 millimeter or less. Postop changes of CABG. No adenopathy. Breast tissue is normal. Degenerative changes mid thoracic spine. No infiltrate, edema, effusion or pneumothorax. IMPRESSION: No evidence of pulmonary thromboembolism. Please note that all CT scans at this facility use dose modulation, iterative reconstruction, and/or weight-based dosing when appropriate to reduce radiation dose to as low as reasonably achievable. Dictated by Ra Correia MD @ 12/12/2022 7:35:18 PM (Electronically Signed) Discharge Plan Discharge Disposition: Home, Self-Care Date of Admission: 12/12/22 23:02 Attending Provider on Discharge: Joseluis Ramirez Primary Care Provider: Moreno Dill Condition: Improved Anticipated Discharge Date/Time: 12/13/22 11:07 Discharge Medications: New amoxicillin 875 mg tablet 875 mg PO BID Qty: 20 0RF prednisone 10 mg tablet 10 mg PO DIRECTED Qty: 15 0RF Rx Instructions: 5 tablets daily for one day then 4,3,2,1 tablet daily each for 1 day then discontinue. Take first thing in the morning with breakfast. Continued ipratropium-albuterol 0.5 mg-3 mg(2.5 mg base)/3 mL solution for nebulization 3 ml inhalation Q6-8H PRN aspirin 81 mg tablet,chewable 81 mg PO DAILY naloxone 4 mg/actuation spray,non-aerosol 4 mg intranasal Q2-3M PRN Rx Instructions: spray 1 dose into ONE nostril; alternate nostrils w each dose until help arrives sennosides-docusate sodium 8.6-50 mg tablet 2 tab PO BID levothyroxine [Synthroid] 50 mcg tablet 50 mcg PO DAILY rosuvastatin [Crestor] 20 mg tablet 20 mg PO DAILY clopidogrel [Plavix] 75 mg tablet 75 mg PO DAILY budesonide-formoterol 160-4.5 mcg/actuation HFA aerosol inhaler 2 inh inhalation BID nitroglycerin [Nitrostat] 0.4 mg tablet, sublingual 0.4 mg sublingual Q5M Rx Instructions: do not exceed 3 doses per episode Spiriva with HandiHaler 18 mcg capsule, w/inhalation device 1 cap INHALATION DAILY esomeprazole magnesium [Nexium] 40 mg capsule,delayed release(DR/EC) 40 mg PO DAILY ezetimibe [Zetia] 10 mg tablet 10 mg PO DAILY glimepiride 1 mg tablet 2 mg PO BID isosorbide mononitrate 60 mg tablet extended release 24 hr 120 mg PO DAILY magnesium oxide 400 mg magnesium capsule 400 mg PO DAILY Nasal Daniels (sodium chloride) 0.65 % aerosol,spray 2 spray intranasal Q2H PRN meclizine 25 mg tablet 25 mg PO TID PRN metoprolol succinate 50 mg tablet extended release 24 hr 50 mg PO DAILY ondansetron HCl 4 mg tablet 4 mg PO Q8H PRN mirtazapine 15 mg tablet 7.5 mg PO DAILY PRN prazosin 2 mg capsule 4 mg PO HS alprazolam [Xanax] 0.5 mg tablet 0.5 mg PO BID PRN albuterol sulfate 90 mcg/actuation HFA aerosol inhaler 2 puff INHALATION Q4H PRN mirtazapine 30 mg tablet 30 mg PO HS buprenorphine HCl 2 mg tablet, sublingual 2 mg SUBLINGUAL QID torsemide 20 mg tablet 20 mg PO BID Qty: 60 0RF potassium chloride 20 mEq tablet,ER particles/crystals 40 meq PO DAILY Qty: 60 0RF quetiapine 200 mg tablet 200 mg PO QPM Jardiance 25 mg tablet 25 mg PO DAILY Discontinued escitalopram oxalate 20 mg tablet 20 mg PO DAILY Discharge Orders: Discharge Order (Routine); Ordered 12/13/22 Ordered By: Joseluis Ramirez Patient Education: Prednisone (By mouth), Amoxicillin (By mouth), Chest Pain (DC) Activity Level: Activity as Tolerated Discharge Diet: Low Fat/Low Cholesterol and 2 gm Sodium Follow Up Appointments: Moreno Dill MD [Primary Care Provider] - (within 1-2 wks for hospital fo llow up) Forms: [employer] Instructions
--- NOTE | 2022-12-13 13:02 | PC.NURSE ---
D/c: Pt A&O. Denies chest pain and SOB. Ind in room. Tolerating meals. IV removed with tip intact. D/c instructions given verbally to pt and a written copy sent home with pt. All questions answered. D/c at 1242.
== END 2022-12-13 12:45 | disposition home or self-care (01) ==
LOC: ED 19:36 → MEDSURG 23:02
PROVIDERS: Admitting Provider Family Medicine; Emergency Provider Family Medicine; PCP Family Medicine; Visit Provider Family Medicine
DX: I50.33 Acute on chronic diastolic (congestive) heart failure (principal); J44.9 Chronic obstructive pulmonary disease, unspecified; I25.10 Atherosclerotic heart disease of native coronary artery without angina pectoris; G47.33 Obstructive sleep apnea (adult) (pediatric); Z99.89 Dependence on other enabling machines and devices; J01.90 Acute sinusitis, unspecified; F41.9 Anxiety disorder, unspecified; Z79.899 Other long term (current) drug therapy; G89.29 Other chronic pain; Z79.82 Long term (current) use of aspirin; R53.1 Weakness; R06.02 Shortness of breath; M79.601 Pain in right arm; Z86.79 Personal history of other diseases of the circulatory system; Z87.891 Personal history of nicotine dependence; F11.20 Opioid dependence, uncomplicated; E78.5 Hyperlipidemia, unspecified; K21.9 Gastro-esophageal reflux disease without esophagitis; Z95.5 Presence of coronary angioplasty implant and graft; Z66 Do not resuscitate; I11.0 Hypertensive heart disease with heart failure
CPT/HCPCS: 36415; 71260; 80048; 80053; 80076; 83690; 83880; 84443; 84484; 85025; 85610; 86140; 87631; 93005; 94761; 96374; 96376; 99285; G0378; J0571; A9270; J2270; Q9967

== ENCOUNTER 2023-06-05 13:50 | Emergency (ER) | payer OTHER, SELFPAY ==
[2023-06-05 13:58] VITALS: BP 125/69; PULSE 74; RESP 18; TEMP 36.2; O2SAT 95; BMI 29.0
--- NOTE | 2023-06-05 14:12 | CRLHL7_ITS ---
For Patients: As a result of the Century Cures Act, medical imaging exams and procedure reports are released immediately into your electronic medical record. You may view this report before your referring provider. If you have questions, please contact your health care provider. Indication: Hemoptysis Comparison: None available. Technique: PA and lateral views of the chest Findings: There is hyperinflation and chronic interstitial change without dense consolidation, effusion or pneumothorax. The cardiac silhouette is mildly prominent with median sternotomy wires. The bony thorax is grossly intact. Impression: Chronic interstitial change without dense consolidation. Dictated by Robert Moura MD @ 06/05/2023 3:00:18 PM (Electronically Signed)
--- NOTE | 2023-06-05 14:12 | ED.GENADULT ---
HPI - General Adult General Chief complaint: Cough Stated complaint: Coughed up blood Time Seen by Provider: 06/05/23 13:51 History of Present Illness HPI narrative: Patient is a 63 year white female with multiple medical issues, including a lifelong Plavix for coronary artery disease and multiple stents. The patient reports yesterday she coughed she, as she has COPD although that is not been worse. She noticed in her phlegm there was a tiny dot of blood. She is concerned about that and came in today she has had no COVID symptoms, has had a negative COVID test, she has not felt chilled or fevers or short of breath or chest pain. She has not had any alcohol and does not have esophageal varices Related Data Home Medications Medication Instructions Recorded Confirmed alprazolam 0.5 mg tablet (Xanax) 0.5 mg PO BID PRN 03/02/22 06/05/23 aspirin 81 mg chewable tablet 81 mg PO DAILY 03/02/22 06/05/23 budesonide-formoterol HFA 160 2 inh inhalation BID 03/02/22 06/05/23 mcg-4.5 mcg/actuation aerosol inhaler clopidogrel 75 mg tablet (Plavix) 75 mg PO DAILY 03/02/22 06/05/23 esomeprazole magnesium 40 mg 40 mg PO DAILY 03/02/22 06/05/23 capsule,delayed release (Nexium) ezetimibe 10 mg tablet (Zetia) 10 mg PO DAILY 03/02/22 06/05/23 glimepiride 1 mg tablet 2 mg PO BID 03/02/22 06/05/23 ipratropium 0.5 mg-albuterol 3 mg 3 ml inhalation Q6-8H PRN 03/02/22 06/05/23 (2.5 mg base)/3 mL nebulization soln isosorbide mononitrate 60 mg 120 mg PO DAILY 03/02/22 06/05/23 tablet,extended release 24 hr levothyroxine 50 mcg tablet 50 mcg PO DAILY 03/02/22 06/05/23 (Synthroid) magnesium oxide 400 mg PO DAILY 03/02/22 06/05/23 meclizine 25 mg tablet 25 mg PO TID PRN 03/02/22 06/05/23 metoprolol succinate 50 mg 50 mg PO DAILY 03/02/22 06/05/23 tablet,extended release 24 hr mirtazapine 15 mg tablet 7.5 mg PO DAILY PRN 03/02/22 06/05/23 naloxone 4 mg/actuation nasal spray 4 mg intranasal Q2-3M PRN 03/02/22 06/05/23 nitroglycerin 0.4 mg sublingual 0.4 mg sublingual Q5M 03/02/22 06/05/23 tablet (Nitrostat) ondansetron HCl 4 mg tablet 4 mg PO Q8H PRN 03/02/22 06/05/23 prazosin 2 mg capsule 4 mg PO HS 03/02/22 06/05/23 rosuvastatin 20 mg tablet (Crestor) 20 mg PO DAILY 03/02/22 06/05/23 sennosides 8.6 mg-docusate sodium 2 tab PO BID 03/02/22 06/05/23 50 mg tablet sodium chloride 0.65 % nasal spray 2 spray intranasal Q2H PRN 03/02/22 06/05/23 aerosol (Nasal [place] (sodium chloride)) albuterol sulfate 90 mcg/actuation 2 puff inhalation Q4H PRN 03/30/22 06/05/23 aerosol inhaler buprenorphine HCl 2 mg sublingual 2 mg sublingual QID 03/30/22 06/05/23 tablet mirtazapine 30 mg tablet 30 mg PO HS 03/30/22 06/05/23 empagliflozin 25 mg tablet 25 mg PO DAILY 12/12/22 06/05/23 (Jardiance) quetiapine 200 mg tablet 200 mg PO QPM 12/12/22 06/05/23 Previous Rx's Medication Instructions Recorded potassium chloride 20 mEq 40 meq (2 x 20 mEq) PO DAILY #60 04/02/22 tablet,extended release(part/cryst) tabs torsemide 20 mg tablet 20 mg PO BID #60 tabs 04/02/22 doxycycline hyclate 100 mg capsule 100 mg PO BID #14 caps 06/05/23 Allergies Allergy/AdvReac Type Severity Reaction Status Date / Time sumatriptan Allergy Severe Anaphylaxis Verified 06/05/23 14:03 buspirone Allergy Intermediate Rash Verified 06/05/23 14:03 fentanyl Allergy Intermediate Verified 06/05/23 14:03 gabapentin Allergy Intermediate gi upset Verified 06/05/23 14:03 niacin Allergy Intermediate Verified 06/05/23 14:03 trazodone Allergy Intermediate Verified 06/05/23 14:03 atorvastatin Allergy Mild myalgia Verified 06/05/23 14:03 codeine Allergy Mild itching Verified 06/05/23 14:03 rizatriptan Allergy Mild Flushing Verified 06/05/23 14:03 Review of Systems Status of ROS: Reports: 6 or more systems reviewed and unremarkable except as noted in History and below PFSH [facility] Medical History Hypokalemia ?E87.6 - Hypokalemia (ICD-10) Encephalopathy acute ?G93.40 - Encephalopathy, unspecified (ICD-10) Hyperkalemia ?E87.5 - Hyperkalemia (ICD-10) Hyponatremia ?E87.1 - Hypo-osmolality and hyponatremia (ICD-10) Coronary artery disease ?I25.10 - Atherosclerotic heart disease of [place] coronary artery without angina pectoris (ICD-10) Congestive heart failure ?I50.9 - Heart failure, unspecified (ICD-10) Diabetes mellitus type 2 in obese ?E11.69 - Type 2 diabetes mellitus with other specified complication (ICD-10) ?E66.9 - Obesity, unspecified (ICD-10) Respiratory failure ?J96.90 - Respiratory failure, unspecified, unspecified whether with hypoxia or hypercapnia (ICD-10) Acute hyponatremia ?E87.1 - Hypo-osmolality and hyponatremia (ICD-10) Congestive heart failure ?I50.9 - Heart failure, unspecified (ICD-10) Hypothyroidism ?E03.9 - Hypothyroidism, unspecified (ICD-10) Type 2 diabetes mellitus with circulatory disorder, without long-term current use of insulin ?E11.59 - Type 2 diabetes mellitus with other circulatory complications (ICD-10) Graves disease ?E05.00 - Thyrotoxicosis with diffuse goiter without thyrotoxic crisis or storm (ICD-10) SOCORRO (obstructive sleep apnea) ?G47.33 - Obstructive sleep apnea (adult) (pediatric) (ICD-10) CAD (coronary artery disease) ?I25.10 - Atherosclerotic heart disease of [place] coronary artery without angina pectoris (ICD-10) Recurrent major depression ?F33.9 - Major depressive disorder, recurrent, unspecified (ICD-10) History of nicotine dependence ?Z87.891 - Personal history of nicotine dependence (ICD-10) Chronic pain syndrome ?G89.4 - Chronic pain syndrome (ICD-10) Arthropathy of spinal facet joint ?M47.819 - Spondylosis without myelopathy or radiculopathy, site unspecified (ICD-10) Allergic rhinitis due to pollen ?J30.1 - Allergic rhinitis due to pollen (ICD-10) Insomnia ?G47.00 - Insomnia, unspecified (ICD-10) Hyperlipidemia ?E78.5 - Hyperlipidemia, unspecified (ICD-10) Lumbar spinal stenosis ?M48.061 - Spinal stenosis, lumbar region without neurogenic claudication (ICD-10) Opioid dependence ?F11.20 - Opioid dependence, uncomplicated (ICD-10) Asthma ?J45.909 - Unspecified asthma, uncomplicated (ICD-10) Refractory migraine ?G43.919 - Migraine, unspecified, intractable, without status migrainosus (ICD-10) Secondary polycythemia ?D75.1 - Secondary polycythemia (ICD-10) PTSD (post-traumatic stress disorder) ?F43.10 - Post-traumatic stress disorder, unspecified (ICD-10) Panic disorder ?F41.0 - Panic disorder [episodic paroxysmal anxiety] (ICD-10) Anxiety ?F41.9 - Anxiety disorder, unspecified (ICD-10) GERD (gastroesophageal reflux disease) ?K21.9 - Gastro-esophageal reflux disease without esophagitis (ICD-10) Chest pain ?R07.9 - Chest pain, unspecified (ICD-10) Edema ?R60.9 - Edema, unspecified (ICD-10) Acute on chronic heart failure with preserved ejection fraction ?I50.33 - Acute on chronic diastolic (congestive) heart failure (ICD-10) CO2 retention ?E87.2 - Acidosis (ICD-10) Cluster B personality disorder ?F60.89 - Other specific personality disorders (ICD-10) Leukocytosis ?D72.829 - Elevated white blood cell count, unspecified (ICD-10) Acute and chronic respiratory failure ([id number]) ?J96.20 - Acute and chronic respiratory failure, unspecified whether with hypoxia or hypercapnia (ICD-10) COPD (chronic obstructive pulmonary disease) ?J44.9 - Chronic obstructive pulmonary disease, unspecified (ICD-10) Surgical History H/O heart artery stent ?Z95.5 - Presence of coronary angioplasty implant and graft (ICD-10) Failed CABG (coronary artery bypass graft) ?T82.218A - Other mechanical complication of coronary artery bypass graft, initial encounter (ICD-10) Social History Narrative: Patient lives alone in [place]. Former smoker. No longer smoking. She does not drink alcohol. Her healthcare power of family law attorney is her future [id number], [employer]. code status is DNR. Highest level of school completed/degree received: some college, no degree Smoking Status: Former smoker What tobacco products do you use: cigarettes Smoking quit date/years: >15 years ago Second hand tobacco smoke exposure: No How often do you have a drink containing alcohol: never How often do you have six or more drinks on one occasion: Never AUDIT-C Alcohol total score: 0 Non-prescribed substance use: denies use Caffeine: Yes service: No Exam Narrative: Exam Narrative: Objective: Patient's vital signs are within normal, her O2 sat is excellent at 95% HEENT is unremarkable Neck is supple Chest is clear bilaterally Heart rhythm regular rate and rhythm regular 2/6 systolic murmur Const: Vital Signs, click to edit/add: Vital Signs - 24 hr 06/05/23 13:58 Temperature 97.2 F L Pulse Rate [Pulse Oximeter] 74 Respiratory Rate 18 Blood Pressure [Ri ght Upper Arm] 125/69 Pulse Oximetry 95 Oxygen Delivery Me thod Room Air Course Vital Signs Vital signs: Initial Vital Signs Temperature 97.2 F L 06/05/23 13:58 Temperature Source Temporal Artery Scan 06/05/23 13:58 Pulse Rate 74 06/05/23 13:58 Respiratory Rate 18 06/05/23 13:58 Blood Pressure 125/69 06/05/23 13:58 Blood Pressure Mean 87 06/05/23 13:58 Blood Pressure Position Sitting 06/05/23 13:58 Pulse Oximetry 95 06/05/23 13:58 Oxygen Delivery Method Room Air 06/05/23 13:58 Vital Signs Temperature 97.2 F L 06/05/23 13:58 Pulse Rate 74 06/05/23 13:58 Respiratory Rate 18 06/05/23 13:58 Blood Pressure 125/69 06/05/23 13:58 Pulse Oximetry 95 06/05/23 13:58 Oxygen Delivery Method Room Air 06/05/23 13:58 Temperature 97.2 F L 06/05/23 13:58 Pulse Rate 74 06/05/23 13:58 Respiratory Rate 18 06/05/23 13:58 Blood Pressure 125/69 06/05/23 13:58 Pulse Oximetry 95 06/05/23 13:58 Oxygen Delivery Method Room Air 06/05/23 13:58 Medical Decision Making MDM Narrative Medical decision making narrative: Patient is a 63 year white female with history of COPD, on Plavix for coronary disease, presents with some tiny amount of blood tinged sputum. She reports this is really a dot of blood in it concerned her. I think that this point would be reasonable to get a chest x-ray make sure does not have of any pneumonia or other issue. I think if she has persistent noting of increased phlegm or blood tinged phlegm she should get a CT scan of her chest and off I do that right now. But will look at her chest x-ray and then decide whether further imaging would be it reasonable. I think also that follow-up with her primary care doctor they can discuss this as well. She does have an upcoming CT scan for abdomen and she has had some intermittent abdominal discomfort. Addendum 2:42 p.m. the patient's x-ray by my read looks unremarkable other than chronic fibrotic changes. No see any obvious infiltrate or tumor. Because she has had some increased phlegm and some sinus congestion, I think it be reasonable to put her on some doxycycline 100 mg b.i.d. for 7 days because of the cough and the sputum production. If she continues to have any changes in her sputum or cough then a CT scan of her chest would be appropriate. She can talk about that with Dr. Dill. Discharge Plan Discharge Clinical Impression: COPD (chronic obstructive pulmonary disease) Patient Disposition: Home, Self-Care Condition: Stable Additional Instructions: Light activity, antibiotic as prescribed, follow-up with Dr. Dill in the next week to 10 days for recheck. Return to ED sooner problems or concerns for Activity Level: Light activity Discharge Diet: Regular Prescriptions: New doxycycline hyclate 100 mg capsule 100 mg PO BID Qty: 14 0RF No Action ipratropium-albuterol 0.5 mg-3 mg(2.5 mg base)/3 mL solution for nebulization 3 ml inhalation Q6-8H PRN aspirin 81 mg tablet,chewable 81 mg PO DAILY naloxone 4 mg/actuation spray,non-aerosol 4 mg intranasal Q2-3M PRN Rx Instructions: spray 1 dose into ONE nostril; alternate nostrils w each dose until help arrives sennosides-docusate sodium 8.6-50 mg tablet 2 tab PO BID levothyroxine [Synthroid] 50 mcg tablet 50 mcg PO DAILY rosuvastatin [Crestor] 20 mg tablet 20 mg PO DAILY clopidogrel [Plavix] 75 mg tablet 75 mg PO DAILY budesonide-formoterol 160-4.5 mcg/actuation HFA aerosol inhaler 2 inh inhalation BID nitroglycerin [Nitrostat] 0.4 mg tablet, sublingual 0.4 mg sublingual Q5M Rx Instructions: do not exceed 3 doses per episode esomeprazole magnesium [Nexium] 40 mg capsule,delayed release(DR/EC) 40 mg PO DAILY ezetimibe [Zetia] 10 mg tablet 10 mg PO DAILY glimepiride 1 mg tablet 2 mg PO BID isosorbide mononitrate 60 mg tablet extended release 24 hr 120 mg PO DAILY magnesium oxide 400 mg magnesium capsule 400 mg PO DAILY Nasal [place] (sodium chloride) 0.65 % aerosol,spray 2 spray intranasal Q2H PRN meclizine 25 mg tablet 25 mg PO TID PRN metoprolol succinate 50 mg tablet extended release 24 hr 50 mg PO DAILY ondansetron HCl 4 mg tablet 4 mg PO Q8H PRN mirtazapine 15 mg tablet 7.5 mg PO DAILY PRN prazosin 2 mg capsule 4 mg PO HS alprazolam [Xanax] 0.5 mg tablet 0.5 mg PO BID PRN albuterol sulfate 90 mcg/actuation HFA aerosol inhaler 2 puff INHALATION Q4H PRN mirtazapine 30 mg tablet 30 mg PO HS buprenorphine HCl 2 mg tablet, sublingual 2 mg SUBLINGUAL QID torsemide 20 mg tablet 20 mg PO BID Qty: 60 0RF potassium chloride 20 mEq tablet,ER particles/crystals 40 meq PO DAILY Qty: 60 0RF quetiapine 200 mg tablet 200 mg PO QPM Jardiance 25 mg tablet 25 mg PO DAILY Follow Up/Referrals: Moreno Dill MD [Primary Care Provider] - Stand Alone Forms: [employer] Info Instructions
== END 2023-06-05 14:54 | disposition home or self-care (01) ==
LOC: ED 14:51
PROVIDERS: Emergency Provider Family Medicine; PCP Family Medicine
DX: J44.9 Chronic obstructive pulmonary disease, unspecified (principal)
CPT/HCPCS: 71046; 99284

== ENCOUNTER 2023-07-15 14:58 | Emergency (ER) | payer OTHER, SELFPAY ==
[2023-07-15 15:06] VITALS: BP 152/85; PULSE 57; RESP 20; TEMP 36.4; O2SAT 95; BMI 37.9
--- NOTE | 2023-07-15 17:17 | ED.GENADULT ---
HPI - General Adult General Chief complaint: Headache/Migraine Stated complaint: Sinus infection-on plavix Time Seen by Provider: 07/15/23 15:15 History of Present Illness HPI narrative: Patient reports sinus pressure and increased yellow sputum that began yesterday. Mentions a few times that she takes Plavix and has had some pink drainage when coughing. No OTC medication tried. 63-year-old woman presenting to the emergency department. Has experienced 4 days of increasing upper forehead pain pulsing along with nasopharyngeal congestion and ears ringing. She has been having productive cough with pink tinged sputum. Would really like something for the forehead pain; mentions ketorolac. No fever. Says she has been pushing fluids. Generally not short of breath Recently treated for presumed pneumonia. Sounds like a course of doxycycline. In review of records looks like chest x-ray it least in mid May was without infiltrate. Related Data Home Medications Medication Instructions Recorded Confirmed alprazolam 0.5 mg tablet (Xanax) 0.5 mg PO BID PRN 03/02/22 06/05/23 aspirin 81 mg chewable tablet 81 mg PO DAILY 03/02/22 06/05/23 budesonide-formoterol HFA 160 2 inh inhalation BID 03/02/22 06/05/23 mcg-4.5 mcg/actuation aerosol inhaler clopidogrel 75 mg tablet (Plavix) 75 mg PO DAILY 03/02/22 06/05/23 esomeprazole magnesium 40 mg 40 mg PO DAILY 03/02/22 06/05/23 capsule,delayed release (Nexium) ezetimibe 10 mg tablet (Zetia) 10 mg PO DAILY 03/02/22 06/05/23 glimepiride 1 mg tablet 2 mg PO BID 03/02/22 06/05/23 ipratropium 0.5 mg-albuterol 3 mg 3 ml inhalation Q6-8H PRN 03/02/22 06/05/23 (2.5 mg base)/3 mL nebulization soln isosorbide mononitrate 60 mg 120 mg PO DAILY 03/02/22 06/05/23 tablet,extended release 24 hr levothyroxine 50 mcg tablet 50 mcg PO DAILY 03/02/22 06/05/23 (Synthroid) magnesium oxide 400 mg PO DAILY 03/02/22 06/05/23 meclizine 25 mg tablet 25 mg PO TID PRN 03/02/22 06/05/23 metoprolol succinate 50 mg 50 mg PO DAILY 03/02/22 06/05/23 tablet,extended release 24 hr mirtazapine 15 mg tablet 7.5 mg PO DAILY PRN 03/02/22 06/05/23 naloxone 4 mg/actuation nasal spray 4 mg intranasal Q2-3M PRN 03/02/22 06/05/23 nitroglycerin 0.4 mg sublingual 0.4 mg sublingual Q5M 03/02/22 06/05/23 tablet (Nitrostat) ondansetron HCl 4 mg tablet 4 mg PO Q8H PRN 03/02/22 06/05/23 prazosin 2 mg capsule 4 mg PO HS 03/02/22 06/05/23 rosuvastatin 20 mg tablet (Crestor) 20 mg PO DAILY 03/02/22 06/05/23 sennosides 8.6 mg-docusate sodium 2 tab PO BID 03/02/22 06/05/23 50 mg tablet sodium chloride 0.65 % nasal spray 2 spray intranasal Q2H PRN 03/02/22 06/05/23 aerosol (Nasal Firebaugh (sodium chloride)) albuterol sulfate 90 mcg/actuation 2 puff inhalation Q4H PRN 03/30/22 06/05/23 aerosol inhaler buprenorphine HCl 2 mg sublingual 2 mg sublingual QID 03/30/22 06/05/23 tablet mirtazapine 30 mg tablet 30 mg PO HS 03/30/22 06/05/23 empagliflozin 25 mg tablet 25 mg PO DAILY 12/12/22 06/05/23 (Jardiance) quetiapine 200 mg tablet 200 mg PO QPM 12/12/22 06/05/23 Previous Rx's Medication Instructions Recorded potassium chloride 20 mEq 40 meq (2 x 20 mEq) PO DAILY #60 04/02/22 tablet,extended release(part/cryst) tabs torsemide 20 mg tablet 20 mg PO BID #60 tabs 04/02/22 doxycycline hyclate 100 mg capsule 100 mg PO BID #14 caps 06/05/23 Allergies Allergy/AdvReac Type Severity Reaction Status Date / Time sumatriptan Allergy Severe Anaphylaxis Verified 06/05/23 14:03 buspirone Allergy Intermediate Rash Verified 06/05/23 14:03 fentanyl Allergy Intermediate Verified 06/05/23 14:03 gabapentin Allergy Intermediate gi upset Verified 06/05/23 14:03 niacin Allergy Intermediate Verified 06/05/23 14:03 trazodone Allergy Intermediate Verified 06/05/23 14:03 atorvastatin Allergy Mild myalgia Verified 06/05/23 14:03 codeine Allergy Mild itching Verified 06/05/23 14:03 rizatriptan Allergy Mild Flushing Verified 06/05/23 14:03 Review of Systems Status of ROS: Reports: 6 or more systems reviewed and unremarkable except as noted in History and below [facility] Medical History Hypokalemia ?E87.6 - Hypokalemia (ICD-10) Encephalopathy acute ?G93.40 - Encephalopathy, unspecified (ICD-10) Hyperkalemia ?E87.5 - Hyperkalemia (ICD-10) Hyponatremia ?E87.1 - Hypo-osmolality and hyponatremia (ICD-10) Coronary artery disease ?I25.10 - Atherosclerotic heart disease of [place] coronary artery without angina pectoris (ICD-10) Congestive heart failure ?I50.9 - Heart failure, unspecified (ICD-10) Diabetes mellitus type 2 in obese ?E11.69 - Type 2 diabetes mellitus with other specified complication (ICD-10) ?E66.9 - Obesity, unspecified (ICD-10) Respiratory failure ?J96.90 - Respiratory failure, unspecified, unspecified whether with hypoxia or hypercapnia (ICD-10) Acute hyponatremia ?E87.1 - Hypo-osmolality and hyponatremia (ICD-10) Congestive heart failure ?I50.9 - Heart failure, unspecified (ICD-10) Hypothyroidism ?E03.9 - Hypothyroidism, unspecified (ICD-10) Type 2 diabetes mellitus with circulatory disorder, without long-term current use of insulin ?E11.59 - Type 2 diabetes mellitus with other circulatory complications (ICD-10) Graves disease ?E05.00 - Thyrotoxicosis with diffuse goiter without thyrotoxic crisis or storm (ICD-10) SOCORRO (obstructive sleep apnea) ?G47.33 - Obstructive sleep apnea (adult) (pediatric) (ICD-10) CAD (coronary artery disease) ?I25.10 - Atherosclerotic heart disease of [place] coronary artery without angina pectoris (ICD-10) Recurrent major depression ?F33.9 - Major depressive disorder, recurrent, unspecified (ICD-10) History of nicotine dependence ?Z87.891 - Personal history of nicotine dependence (ICD-10) Chronic pain syndrome ?G89.4 - Chronic pain syndrome (ICD-10) Arthropathy of spinal facet joint ?M47.819 - Spondylosis without myelopathy or radiculopathy, site unspecified (ICD-10) Allergic rhinitis due to pollen ?J30.1 - Allergic rhinitis due to pollen (ICD-10) Insomnia ?G47.00 - Insomnia, unspecified (ICD-10) Hyperlipidemia ?E78.5 - Hyperlipidemia, unspecified (ICD-10) Lumbar spinal stenosis ?M48.061 - Spinal stenosis, lumbar region without neurogenic claudication (ICD-10) Opioid dependence ?F11.20 - Opioid dependence, uncomplicated (ICD-10) Asthma ?J45.909 - Unspecified asthma, uncomplicated (ICD-10) Refractory migraine ?G43.919 - Migraine, unspecified, intractable, without status migrainosus (ICD-10) Secondary polycythemia ?D75.1 - Secondary polycythemia (ICD-10) PTSD (post-traumatic stress disorder) ?F43.10 - Post-traumatic stress disorder, unspecified (ICD-10) Panic disorder ?F41.0 - Panic disorder [episodic paroxysmal anxiety] (ICD-10) Anxiety ?F41.9 - Anxiety disorder, unspecified (ICD-10) GERD (gastroesophageal reflux disease) ?K21.9 - Gastro-esophageal reflux disease without esophagitis (ICD-10) Chest pain ?R07.9 - Chest pain, unspecified (ICD-10) Edema ?R60.9 - Edema, unspecified (ICD-10) Acute on chronic heart failure with preserved ejection fraction ?I50.33 - Acute on chronic diastolic (congestive) heart failure (ICD-10) CO2 retention ?E87.2 - Acidosis (ICD-10) Cluster B personality disorder ?F60.89 - Other specific personality disorders (ICD-10) Leukocytosis ?D72.829 - Elevated white blood cell count, unspecified (ICD-10) Acute and chronic respiratory failure ([id number]) ?J96.20 - Acute and chronic respiratory failure, unspecified whether with hypoxia or hypercapnia (ICD-10) COPD (chronic obstructive pulmonary disease) ?J44.9 - Chronic obstructive pulmonary disease, unspecified (ICD-10) Surgical History H/O heart artery stent ?Z95.5 - Presence of coronary angioplasty implant and graft (ICD-10) Failed CABG (coronary artery bypass graft) ?T82.218A - Other mechanical complication of coronary artery bypass graft, initial encounter (ICD-10) Social History Narrative: Patient lives alone in [place]. Former smoker. No longer smoking. She does not drink alcohol. Her healthcare power of civil rights attorney is her future [id number], [place]. code status is DNR. Highest level of school completed/degree received: some college, no degree Smoking Status: Former smoker What tobacco products do you use: cigarettes Smoking quit date/years: >15 years ago Second hand tobacco smoke exposure: No How often do you have a drink containing alcohol: never How often do you have six or more drinks on one occasion: Never AUDIT-C Alcohol total score: 0 Non-prescribed substance use: denies use Caffeine: Yes service: No Exam Narrative: Exam Narrative: Cranial nerves 2-12 intact. Pupils are equal and appropriately reactive. Winces intermittently with apparent discomfort in the forehead. Pain is not in the occipital area. Sounds congested nasopharynx. Left greater than right TM or full but not inflamed. No erythema. Shiny semi transparent. lungs are clear. Heart in slow but regular rate and rhythm. Sore to palpation over the forehead and maxillary sinuses. Oropharynx with what looks to be cobblestoning posteriorly. No coughing during our interview. Lungs appear clear. Const: Vital Signs, click to edit/add: Vital Signs - 24 hr 07/15/23 15:06 Temperature 97.5 F L Pulse Rate [Pulse Oximeter] 57 L Respiratory Rate 20 Blood Pressure [Ri ght Upper Arm] 152/85 H Pulse Oximetry 95 Oxygen Delivery Me thod Room Air Documenting provider has reviewed patient's vital signs: yes Course Vital Signs Vital signs: Initial Vital Signs Temperature 97.5 F L 07/15/23 15:06 Temperature Source Temporal Artery Scan 07/15/23 15:06 Pulse Rate 57 L 07/15/23 15:06 Respiratory Rate 20 07/15/23 15:06 Blood Pressure 152/85 H 07/15/23 15:06 Blood Pressure Mean 107 H 07/15/23 15:06 Pulse Oximetry 95 07/15/23 15:06 Oxygen Delivery Method Room Air 07/15/23 15:06 Vital Signs Temperature 97.5 F L 07/15/23 15:06 Pulse Rate 57 L 07/15/23 15:06 Respiratory Rate 20 07/15/23 15:06 Blood Pressure 152/85 H 07/15/23 15:06 Pulse Oximetry 95 07/15/23 15:06 Oxygen Delivery Method Room Air 07/15/23 15:06 Temperature 97.5 F L 07/15/23 15:06 Pulse Rate 57 L 07/15/23 15:06 Respiratory Rate 20 07/15/23 15:06 Blood Pressure 152/85 H 07/15/23 15:06 Pulse Oximetry 95 07/15/23 15:06 Oxygen Delivery Method Room Air 07/15/23 15:06 Medications Administered Medications: Discontinued Medications Generic Name Dose Route Start Last Admin Trade Name Freq PRN Reason Stop Dose Admin Ketorolac Tromethamine 60 mg 07/15/23 17:32 07/15/23 17:51 Ketorolac 60 Mg/2 Ml Inj IM 07/15/23 17:33 60 mg ONCE ONE Administration Pseudoephedrine HCl 60 mg 07/15/23 17:32 07/15/23 17:51 Pseudoephedrine Hcl 30 Mg Tablet PO 07/15/23 17:33 60 mg ONCE ONE Administration Medical Decision Making MDM Narrative Medical decision making narrative: Four days of intensifying symptoms. Meets criteria for sinusitis and possibly sinus infection. Evidence of eustachian tube dysfunction. Symptoms seem relatively localized to the head and throat. Evidence of postnasal drip. Does have a history of COPD. We did discuss testing for COVID/influenza/RSV. She is thinking that she would like to check for COVID with home test. I think less likely pneumonia. With history of COPD might benefit from a course of prednisone if this is in some way and exacerbation. otherwise this should help facial symptoms as well. As requested given injection of ketorolac. Prior creatinine reviewed in record. See patient discharge plan Medical Records Medical records reviewed: Yes I reviewed the patient's medical records Discharge Plan Discharge Clinical Impression: Sinusitis, Headache, Dysfunction of both eustachian tubes Patient Disposition: Home, Self-Care Condition: Stable Additional Instructions: Continue to focus on hydration. Consider Neti pot and nasal saline rinses. Menthol vapors might be helpful I would try longer acting maybe 12 hours pseudoephedrine for drying and decongestion. Prednisone from [facility]. Amoxicillin from [facility]. Take 2 tabs for your 1st dosing You might also try guaifenesin for thinning of secretions. Prescriptions: No Action ipratropium-albuterol 0.5 mg-3 mg(2.5 mg base)/3 mL solution for nebulization 3 ml inhalation Q6-8H PRN aspirin 81 mg tablet,chewable 81 mg PO DAILY naloxone 4 mg/actuation spray,non-aerosol 4 mg intranasal Q2-3M PRN Rx Instructions: spray 1 dose into ONE nostril; alternate nostrils w each dose until help arrives sennosides-docusate sodium 8.6-50 mg tablet 2 tab PO BID levothyroxine [Synthroid] 50 mcg tablet 50 mcg PO DAILY rosuvastatin [Crestor] 20 mg tablet 20 mg PO DAILY clopidogrel [Plavix] 75 mg tablet 75 mg PO DAILY budesonide-formoterol 160-4.5 mcg/actuation HFA aerosol inhaler 2 inh inhalation BID nitroglycerin [Nitrostat] 0.4 mg tablet, sublingual 0.4 mg sublingual Q5M Rx Instructions: do not exceed 3 doses per episode esomeprazole magnesium [Nexium] 40 mg capsule,delayed release(DR/EC) 40 mg PO DAILY ezetimibe [Zetia] 10 mg tablet 10 mg PO DAILY glimepiride 1 mg tablet 2 mg PO BID isosorbide mononitrate 60 mg tablet extended release 24 hr 120 mg PO DAILY magnesium oxide 400 mg magnesium capsule 400 mg PO DAILY Nasal Firebaugh (sodium chloride) 0.65 % aerosol,spray 2 spray intranasal Q2H PRN meclizine 25 mg tablet 25 mg PO TID PRN metoprolol succinate 50 mg tablet extended release 24 hr 50 mg PO DAILY ondansetron HCl 4 mg tablet 4 mg PO Q8H PRN mirtazapine 15 mg tablet 7.5 mg PO DAILY PRN prazosin 2 mg capsule 4 mg PO HS alprazolam [Xanax] 0.5 mg tablet 0.5 mg PO BID PRN albuterol sulfate 90 mcg/actuation HFA aerosol inhaler 2 puff INHALATION Q4H PRN mirtazapine 30 mg tablet 30 mg PO HS buprenorphine HCl 2 mg tablet, sublingual 2 mg SUBLINGUAL QID torsemide 20 mg tablet 20 mg PO BID Qty: 60 0RF potassium chloride 20 mEq tablet,ER particles/crystals 40 meq PO DAILY Qty: 60 0RF quetiapine 200 mg tablet 200 mg PO QPM Jardiance 25 mg tablet 25 mg PO DAILY doxycycline hyclate 100 mg capsule 100 mg PO BID Qty: 14 0RF Follow Up/Referrals: Moreno Dill MD [Primary Care Provider] - Stand Alone Forms: [facility] Info Instructions
[2023-07-15] MEDS: PSEUDOEPHEDRINE HCL 30 MG TABLET 60 MG PO (17:51)
[2023-07-15] MEDS: KETOROLAC 60 MG/2 ML inj IM (17:51)
== END 2023-07-15 17:52 | disposition home or self-care (01) ==
LOC: ED 17:42
PROVIDERS: Emergency Provider Family Medicine; PCP Family Medicine
DX: J32.9 Chronic sinusitis, unspecified (principal); R51.9 Headache, unspecified; H69.90 Unspecified Eustachian tube disorder, unspecified ear
CPT/HCPCS: 96372; 99284; A9270; J1885

== ENCOUNTER 2023-10-19 14:55 | Emergency (ER) | payer OTHER, SELFPAY ==
--- NOTE | 2023-10-19 14:48 | XR_ITS ---
Patient: RUEL VERAS Facility:?[facility] Patient ID:?[id number] Site Patient ID:?[id number]. Site :?[id number] Study:?XRay-Chest 1V-10/19/2023 3:31:50 PM Ordering Physician:?DR. PAREKH Final Report: INDICATION: Shortness of breath. COMPARISON: None. TECHNIQUE: Portable AP chest. FINDINGS: Normal size cardiac silhouette. Status post median sternotomy. No acute pneumonic infiltrates or CHF. No pneumothorax or pleural effusion. IMPRESSION: No acute pathology. Dictated by Shyanne Diaz MD @ 10/19/2023 3:42:05 PM Signed by:?Shyanne Diaz MD @10/19/2023 3:42:05 PM (Electronic Signature)
[2023-10-19 15:04] VITALS: BP 141/87; PULSE 88; RESP 20; TEMP 37.1; O2SAT 98; BMI 27.1
--- NOTE | 2023-10-19 15:15 | ED_ITS ---
HPI - SOB/Dyspnea General Date Seen: 10/19/23 Chief Complaint: Shortness of Breath/Dyspnea Stated Complaint: COVID Source: patient and EMS Mode of arrival: EMS Limitations: no limitations History of Present Illness HPI Narrative: Patient is a 63-year-old female with recent diagnosis of COVID presenting to the emergency department for shortness of breath. She has a history of coronary artery disease with bypass surgery, COPD, CHF. She states for the past few days she has been having increased shortness of breath. She saw her primary care provider yesterday and was started on azithromycin and prednisone. She states her symptoms are getting acutely worse today. She does note she has noticed that in the past when she gets started on steroids she will be worse for the 1st couple days and then get better. She does wear oxygen at home but is only usually on it at night a 1.5 L. She never wears it during the day until today and she says he was still feeling very short of breath. Has been doing her home inhalers and nebulizers without improvement in her symptoms. Has some chest pain that she says started after all the coughing. She thinks it is from that. She had a fever a couple days ago but not today. Denies abdominal pain, weakness, numbness, diarrhea, constipation, dysuria. Does states she is feeling nauseated. She received a DuoNeb treatment by EMS and that improved her symptoms. When I 1st picked her up she is satting in the 80s on room air is now satting in the mid 90s on room air. Related Data Home Medications Medication Instructions Recorded Confirmed alprazolam 0.5 mg tablet (Xanax) 0.5 mg PO BID PRN 03/02/22 06/05/23 aspirin 81 mg chewable tablet 81 mg PO DAILY 03/02/22 06/05/23 budesonide-formoterol HFA 160 2 inh inhalation BID 03/02/22 06/05/23 mcg-4.5 mcg/actuation aerosol inhaler clopidogrel 75 mg tablet (Plavix) 75 mg PO DAILY 03/02/22 06/05/23 esomeprazole magnesium 40 mg 40 mg PO DAILY 03/02/22 06/05/23 capsule,delayed release (Nexium) ezetimibe 10 mg tablet (Zetia) 10 mg PO DAILY 03/02/22 06/05/23 glimepiride 1 mg tablet 2 mg PO BID 03/02/22 06/05/23 ipratropium 0.5 mg-albuterol 3 mg 3 ml inhalation Q6-8H PRN 03/02/22 06/05/23 (2.5 mg base)/3 mL nebulization soln isosorbide mononitrate 60 mg 120 mg PO DAILY 03/02/22 06/05/23 tablet,extended release 24 hr levothyroxine 50 mcg tablet 50 mcg PO DAILY 03/02/22 06/05/23 (Synthroid) magnesium oxide 400 mg PO DAILY 03/02/22 06/05/23 meclizine 25 mg tablet 25 mg PO TID PRN 03/02/22 06/05/23 metoprolol succinate 50 mg 50 mg PO DAILY 03/02/22 06/05/23 tablet,extended release 24 hr mirtazapine 15 mg tablet 7.5 mg PO DAILY PRN 03/02/22 06/05/23 naloxone 4 mg/actuation nasal spray 4 mg intranasal Q2-3M PRN 03/02/22 06/05/23 nitroglycerin 0.4 mg sublingual 0.4 mg sublingual Q5M 03/02/22 06/05/23 tablet (Nitrostat) ondansetron HCl 4 mg tablet 4 mg PO Q8H PRN 03/02/22 06/05/23 prazosin 2 mg capsule 4 mg PO HS 03/02/22 06/05/23 rosuvastatin 20 mg tablet (Crestor) 20 mg PO DAILY 03/02/22 06/05/23 sennosides 8.6 mg-docusate sodium 2 tab PO BID 03/02/22 06/05/23 50 mg tablet sodium chloride 0.65 % nasal spray 2 spray intranasal Q2H PRN 03/02/22 06/05/23 aerosol (Nasal Queen (sodium chloride)) albuterol sulfate 90 mcg/actuation 2 puff inhalation Q4H PRN 03/30/22 06/05/23 aerosol inhaler buprenorphine HCl 2 mg sublingual 2 mg sublingual QID 03/30/22 06/05/23 tablet mirtazapine 30 mg tablet 30 mg PO HS 03/30/22 06/05/23 empagliflozin 25 mg tablet 25 mg PO DAILY 04/19/23 10/11/23 (Jardiance) quetiapine 200 mg tablet 200 mg PO QPM 12/12/22 06/05/23 Previous Rx's Medication Instructions Recorded potassium chloride 20 mEq 40 meq (2 x 20 mEq) PO DAILY #60 04/02/22 tablet,extended release(part/cryst) tabs torsemide 20 mg tablet 20 mg PO BID #60 tabs 04/02/22 doxycycline hyclate 100 mg capsule 100 mg PO BID #14 caps 06/05/23 Allergies Allergy/AdvReac Type Severity Reaction Status Date / Time sumatriptan Allergy Severe Anaphylaxis Verified 10/19/23 15:09 buspirone Allergy Intermediate Rash Verified 10/19/23 15:09 fentanyl Allergy Intermediate Verified 10/19/23 15:09 gabapentin Allergy Intermediate gi upset Verified 10/19/23 15:09 niacin Allergy Intermediate Verified 10/19/23 15:09 trazodone Allergy Intermediate Verified 10/19/23 15:09 atorvastatin Allergy Mild myalgia Verified 10/19/23 15:09 codeine Allergy Mild itching Verified 10/19/23 15:09 rizatriptan Allergy Mild Flushing Verified 10/19/23 15:09 Review of Systems Status of ROS: Reports: 10 or more systems reviewed and unremarkable except as noted in History and below [facility] Medical History Hypokalemia ?E87.6 - Hypokalemia (ICD-10) Encephalopathy acute ?G93.40 - Encephalopathy, unspecified (ICD-10) Hyperkalemia ?E87.5 - Hyperkalemia (ICD-10) Hyponatremia ?E87.1 - Hypo-osmolality and hyponatremia (ICD-10) Coronary artery disease ?I25.10 - Atherosclerotic heart disease of [place] coronary artery without ang alaina pectoris (ICD-10) Congestive heart failure ?I50.9 - Heart failure, unspecified (ICD-10) Diabetes mellitus type 2 in obese ?E11.69 - Type 2 diabetes mellitus with other specified complication (ICD-10) ?E66.9 - Obesity, unspecified (ICD-10) Respiratory failure ?J96.90 - Respiratory failure, unspecified, unspecified whether with hypoxia or hypercapnia (ICD-10) Acute hyponatremia ?E87.1 - Hypo-osmolality and hyponatremia (ICD-10) Congestive heart failure ?I50.9 - Heart failure, unspecified (ICD-10) Hypothyroidism ?E03.9 - Hypothyroidism, unspecified (ICD-10) Type 2 diabetes mellitus with circulatory disorder, without long-term current use of insulin ?E11.59 - Type 2 diabetes mellitus with other circulatory complications (ICD- 10) Graves disease ?E05.00 - Thyrotoxicosis with diffuse goiter without thyrotoxic crisis or storm (ICD-10) SOCORRO (obstructive sleep apnea) ?G47.33 - Obstructive sleep apnea (adult) (pediatric) (ICD-10) CAD (coronary artery disease) ?I25.10 - Atherosclerotic heart disease of [place] coronary artery without angina pectoris (ICD-10) Recurrent major depression ?F33.9 - Major depressive disorder, recurrent, unspecified (ICD-10) History of nicotine dependence ?Z87.891 - Personal history of nicotine dependence (ICD-10) Chronic pain syndrome ?G89.4 - Chronic pain syndrome (ICD-10) Arthropathy of spinal facet joint ?M47.819 - Spondylosis without myelopathy or radiculopathy, site unspecified (ICD-10) Allergic rhinitis due to pollen ?J30.1 - Allergic rhinitis due to pollen (ICD-10) Insomnia ?G47.00 - Insomnia, unspecified (ICD-10) Hyperlipidemia ?E78.5 - Hyperlipidemia, unspecified (ICD-10) Lumbar spinal stenosis ?M48.061 - Spinal stenosis, lumbar region without neurogenic claudication (ICD-10) Opioid dependence ?F11.20 - Opioid dependence, uncomplicated (ICD-10) Asthma ?J45.909 - Unspecified asthma, uncomplicated (ICD-10) Refractory migraine ?G43.919 - Migraine, unspecified, intractable, without status migrainosus (ICD-10) Secondary polycythemia ?D75.1 - Secondary polycythemia (ICD-10) PTSD (post-traumatic stress disorder) ?F43.10 - Post-traumatic stress disorder, unspecified (ICD-10) Panic disorder ?F41.0 - Panic disorder [episodic paroxysmal anxiety] (ICD-10) Anxiety ?F41.9 - Anxiety disorder, unspecified (ICD-10) GERD (gastroesophageal reflux disease) ?K21.9 - Gastro-esophageal reflux disease without esophagitis (ICD-10) Chest pain ?R07.9 - Chest pain, unspecified (ICD-10) Edema ?R60.9 - Edema, unspecified (ICD-10) Acute on chronic heart failure with preserved ejection fraction ?I50.33 - Acute on chronic diastolic (congestive) heart failure (ICD-10) CO2 retention ?E87.2 - Acidosis (ICD-10) Cluster B personality disorder ?F60.89 - Other specific personality disorders (ICD-10) Leukocytosis ?D72.829 - Elevated white blood cell count, unspecified (ICD-10) Acute and chronic respiratory failure (qrdni-ko-yznawtv) ?J96.20 - Acute and chronic respiratory failure, unspecified whether with hypoxia or hypercapnia (ICD-10) COPD (chronic obstructive pulmonary disease) ?J44.9 - Chronic obstructive pulmonary disease, unspecified (ICD-10) Surgical History H/O heart artery stent ?Z95.5 - Presence of coronary angioplasty implant and graft (ICD-10) Failed CABG (coronary artery bypass graft) ?T82.218A - Other mechanical complication of coronary artery bypass graft, initial encounter (ICD-10) Social History Narrative: Patient lives alone in [place]. Former smoker. No longer smoking. She does not drink alcohol. Her healthcare power of county attorney is her future [id number]-met, [place]. code status is DNR. Highest level of school completed/degree received: some college, no degree Smoking Status: Former smoker What tobacco products do you use: cigarettes Smoking quit date/years: >15 years ago Second hand tobacco smoke exposure: No How often do you have a drink containing alcohol: never How often do you have six or more drinks on one occasion: Never AUDIT-C Alcohol total score: 0 Non-prescribed substance use: denies use Caffeine: Yes service: No Exam Narrative: Exam Narrative: Const: Well-nourished, Well-developed, in mild distress Eyes: PERRL, no conjunctival injection, and symmetrical lids HENT: Atraumatic external nose and ears. Moist mucous membranes. Neck: Symmetric, trachea midline, No thyromegaly. CVS: RRR, No murmurs or gallops. Peripheral pulses 2+ and equal in all extremities, no lower extremity swelling bilaterally RESP: Unlabored respiratory effort. Diffuse wheezing GI: Nontender/Nondistended, No rebound or guarding. MSK:Extremities w/o deformity, Normal Active ROM Skin: Warm, Dry. No rashes or lesions. Neuro: Normal Muscle tone, No focal neurological deficits. Psych: Awake, Alert, & Oriented x3. Appropriate mood and affect. Const: Vital Signs, click to edit/add: Vital Signs - 24 hr 10/19/23 15:04 Temperature 98.7 F Pulse Rate [Right Pulse Oximeter] 88 Respiratory Rate 20 Blood Pressure [Ri ght Upper Arm] 141/87 H Pulse Oximetry 98 Oxygen Delivery Me thod Room Air Course Vital Signs Vital signs: Initial Vital Signs Respiratory Effort Spontaneous, Pursed Lip 10/19/23 14:48 Respiratory Depth Shallow 10/19/23 14:48 Vital Signs Temperature 98.7 F 10/19/23 15:04 Pulse Rate 88 10/19/23 15:04 Respiratory Rate 20 10/19/23 15:04 Blood Pressure 141/87 H 10/19/23 15:04 Pulse Oximetry 98 10/19/23 15:04 Oxygen Delivery Method Room Air 10/19/23 15:04 Temperature 98.7 F 10/19/23 15:04 Pulse Rate 88 10/19/23 15:04 Respiratory Rate 20 10/19/23 15:04 Blood Pressure 141/87 H 10/19/23 15:04 Pulse Oximetry 98 10/19/23 15:04 Oxygen Delivery Method Room Air 10/19/23 15:04 Medications Administered Medications: Discontinued Medications Generic Name Dose Route Start Last Admin Trade Name Freq PRN Reason Stop Dose Admin Albuterol/Ipratropium 1 neb 10/19/23 15:14 10/19/23 16:15 Iprat-Albut 0.5-2.5 Mg/3 Ml Neb IH 10/19/23 15:15 1 neb ONCE ONE Administration Methylprednisolone Sodium Succinate 125 mg 10/19/23 14:48 10/19/23 16:15 Methylprednisolone Sod Succ 62.5 Mg/Ml (125) IVP 10/19/23 14:49 125 mg ONCE ONE Administration MDM - SOB/Dyspnea MDM Narrative Medical decision making narrative: Patient is a 63-year-old female presenting to the emergency department for shortness of breath. She was given DuoNebs EN route by EMS. She is already on steroids and azithromycin meds prescribed to her yesterday. She has some chest pain but is reproducible on palpation she says her chest just feels sore from all the coughing. Has a history of CHF and a BNP was ordered. Not see any lower extremity swelling. CHF seems unlikely at this time. She does some improvement with the DuoNebs and she feels like she could use another 1. This was ordered. Also ordered a dose of Solu-Medrol. When her chest x-ray this for signs of pneumonia, pneumothorax, pleural effusions. She does not typically wear oxygen during the day but has been requiring more than usual. On ambulation she was satting down to 77% per nursing staff and oxygen was placed. CBC, BMP, point of care troponin showed no concerning abnormalities. He is already known COVID positive so this was not recheck. She was feeling much better after the breathing treatment. She is already on a prescription for steroids and antibiotic. On room air she is stable 88% which is within the range for COPD patients. She does have home oxygen which she can wear 20 for 7 at home. She states is easing move around her house and she is not concerned. I spoke to her about admission versus discharge and considering she can wear oxygen at home she would prefer to be discharged home with a prescription for Paxlovid. At this time she appears well and appears well aware of her medical issues and does seem reliable to return if she gets worsening symptoms. She states she will return immediately if the symptoms worsen again. Due to this I am comfortable discharging her home with strict return precautions. Patient states she is no longer taking Seroquel. Will adjust her other medications as indicated for the Paxlovid Lab Data Labs: Lab Results 10/19/23 10/19/23 Range/Units 15:01 15:15 WBC 7.93 (4.50-11.00) K/uL RBC 5.01 (4.00-5.20) m/uL Hgb 15.3 (12.0-16.0) gm/dL Hct 47.7 (33.0-51.0) % MCV 95 (80-100) fL MCH 31 (26-34) pg MCHC 32 (32-36) gm/dL RDW Coeff of Renetta 12.6 (11.5-15.5) % Plt Count 221 (140-440) K/uL Neut % (Auto) 87.0 H (42.0-72.0) % Lymph % (Auto) 9.3 L (20-44) % [place] % (Auto) 3.0 (0.0-11.0) % Eos % (Auto) 0.0 (0.0-7.0) % Baso % (Auto) 0.1 (0.0-3.0) % Neut # (Auto) 6.90 (1.7-7.0) K/uL Lymph # (Auto) 0.70 L (0.90-2.90) K/uL [place] # (Auto) 0.20 (0.00-0.90) K/UL Eos # (Auto) 0.00 (0.00-0.50) K/uL Baso # (Auto) 0.01 (0.00-0.30) K/uL Abs Immat Gran (auto) 0.05 (0.00-0.30) K/uL Imm/Tot Granulo (auto) 0.6 % Sodium 135 (135-149) mmol/L Potassium 4.6 (3.6-5.1) mmol/L Chloride 99 (96-114) mmol/L Carbon Dioxide 23 (20-32) mmol/L Anion Gap 13 (7-15) mEq/L BUN 21 (7-30) mg/dL Creatinine 0.7 (0.5-1.5) mg/dL Estimated Creat Clear 49.08 Estimated GFR 97 ml/min Glucose 249 H (60-115) mg/dL Calcium 9.6 (8.4-10.6) mg/dL Lab Acknowledgement Test Added POC Troponin I 0.00 L (0.01-0.04) ng/ml Imaging Data Chest x-ray: Radiologist's impression: No acute pathology. Dictated by Shyanne Diaz MD @ 10/19/2023 3:42:05 PM ECG Data Attestation: I personally reviewed and interpreted this ECG as follows: Prior ECG tracings: available for review Interpretation: Normal sinus rhythm with a rate of 87 beats per minute, normal intervals, normal axis, no ST or T-wave abnormalities. Appears similar to previous EKGs on file Discharge Plan Discharge Clinical Impression: COVID COPD (chronic obstructive pulmonary disease) Qualifiers: COPD type: unspecified COPD Qualified Code(s): J44.9 - Chronic obstructive pulmonary disease, unspecified Patient Disposition: Home, Self-Care Condition: Improved Additional Instructions: Make sure to wear your oxygen at all times. Return to the emergency department immediately if his symptoms feel like they are getting worse. While your taking the Paxlovid, Xanax. Again I would like to remind you to return to emergency department immediately if symptoms worsen Prescriptions: No Action ipratropium-albuterol 0.5 mg-3 mg(2.5 mg base)/3 mL solution for nebulization 3 ml inhalation Q6-8H PRN aspirin 81 mg tablet,chewable 81 mg PO DAILY naloxone 4 mg/actuation spray,non-aerosol 4 mg intranasal Q2-3M PRN Rx Instructions: spray 1 dose into ONE nostril; alternate nostrils w each dose until help arrives sennosides-docusate sodium 8.6-50 mg tablet 2 tab PO BID levothyroxine [Synthroid] 50 mcg tablet 50 mcg PO DAILY rosuvastatin [Crestor] 20 mg tablet 20 mg PO DAILY clopidogrel [Plavix] 75 mg tablet 75 mg PO DAILY budesonide-formoterol 160-4.5 mcg/actuation HFA aerosol inhaler 2 inh inhalation BID nitroglycerin [Nitrostat] 0.4 mg tablet, sublingual 0.4 mg sublingual Q5M Rx Instructions: do not exceed 3 doses per episode esomeprazole magnesium [Nexium] 40 mg capsule,delayed release(DR/EC) 40 mg PO DAILY ezetimibe [Zetia] 10 mg tablet 10 mg PO DAILY glimepiride 1 mg tablet 2 mg PO BID isosorbide mononitrate 60 mg tablet extended release 24 hr 120 mg PO DAILY magnesium oxide 400 mg magnesium capsule 400 mg PO DAILY Nasal Queen (sodium chloride) 0.65 % aerosol,spray 2 spray intranasal Q2H PRN meclizine 25 mg tablet 25 mg PO TID PRN metoprolol succinate 50 mg tablet extended release 24 hr 50 mg PO DAILY ondansetron HCl 4 mg tablet 4 mg PO Q8H PRN mirtazapine 15 mg tablet 7.5 mg PO DAILY PRN prazosin 2 mg capsule 4 mg PO HS alprazolam [Xanax] 0.5 mg tablet 0.5 mg PO BID PRN albuterol sulfate 90 mcg/actuation HFA aerosol inhaler 2 puff INHALATION Q4H PRN mirtazapine 30 mg tablet 30 mg PO HS buprenorphine HCl 2 mg tablet, sublingual 2 mg SUBLINGUAL QID torsemide 20 mg tablet 20 mg PO BID Qty: 60 0RF potassium chloride 20 mEq tablet,ER particles/crystals 40 meq PO DAILY Qty: 60 0RF quetiapine 200 mg tablet 200 mg PO QPM Jardiance 25 mg tablet 25 mg PO DAILY doxycycline hyclate 100 mg capsule 100 mg PO BID Qty: 14 0RF Follow Up/Referrals: Moreno Dill MD [Primary Care Provider] - [facility] Instructions
[2023-10-19 15:20] LABS: Basophils Absolute Auto 0.01 K/uL (0.00-0.30); Basophils Percent Auto 0.1 % (0.0-3.0); Hematocrit 47.7 % (33.0-51.0); Hemoglobin* 15.3 gm/dL (12.0-16.0); Immature Granulocytes Abs Auto 0.05 K/uL (0.00-0.30); Immature Granulocytes Pct Auto 0.6 %; Lymphocytes Percent Auto 9.3 % (20-44); Mean Corpuscular HGB Conc 32 gm/dL (32-36); Mean Corpuscular Hemoglobin 31 pg (26-34); Mean Corpuscular Volume 95 fL (80-100); Platelet Count* 221 K/uL (140-440); RDW Coefficient of Variation % 12.6 % (11.5-15.5); Red Blood Count 5.01 m/uL (4.00-5.20); White Blood Count* 7.93 K/uL (4.50-11.00)
[2023-10-19 15:22] LABS: Slide Review Reflex No
[2023-10-19 15:43] LABS: Chloride* 99 mmol/L (96-114); Potassium* 4.6 mmol/L (3.6-5.1); Sodium* 135 mmol/L (135-149)
[2023-10-19 15:46] LABS: Anion Gap 13 mEq/L (7-15); Blood Urea Nitrogen* 21 mg/dL (7-30); Carbon Dioxide* 23 mmol/L (20-32); Creatinine* 0.7 mg/dL (0.5-1.5); Est. Creatinine Clearance* 49.08; Estimated Glomerular Filt Rate 97 ml/min; Glucose* 249 mg/dL (60-115)
[2023-10-19 15:47] LABS: Calcium* 9.6 mg/dL (8.4-10.6)
[2023-10-19] MEDS: IPRAT-ALBUT 0.5-2.5 MG/3 ML NEB 1 NEB IH (16:15)
[2023-10-19] MEDS: METHYLPREDNISOLONE SOD SUCC 62.5 MG/ML (125) 125 MG IVP (16:15)
[2023-10-19 16:30] LABS: NT Pro B Type NatriureticPept* 671 pg/mL
[2023-10-19] MEDS: KETOROLAC 15 MG/ML inj IVP (16:42)
== END 2023-10-19 17:36 | disposition home or self-care (01) ==
PROVIDERS: Emergency Provider Student in an Organized Health Care Education/Training Program; PCP Family Medicine
DX: U07.1 COVID-19 (principal); J44.9 Chronic obstructive pulmonary disease, unspecified
CPT/HCPCS: 36415; 71045; 80048; 83880; 84484; 85025; 87631; 93005; 94640; 96374; 96375; 99283; 99284; 99285; J1885; J2930

== ENCOUNTER 2023-10-21 21:30 | Inpatient (IN) | payer OTHER, SELFPAY ==
[2023-10-21 21:34] VITALS: BP 126/75; PULSE 119; RESP 22; TEMP 36.9; O2SAT 80; BMI 27.1
[2023-10-21 22:01] VITALS: BP 81/61; PULSE 107; O2SAT 91
--- NOTE | 2023-10-21 22:28 | ED.GENADULT ---
HPI - General Adult General Time Seen by Provider: 22:28 Date Seen: 10/21/23 Chief complaint: Shortness of Breath/Dyspnea Stated complaint: Covid + Time Seen by Provider: 10/21/23 22:28 Source: patient and RN notes reviewed Mode of arrival: EMS Limitations: no limitations History of Present Illness HPI narrative: Meg is a very pleasant 63-year-old female with history of congestive heart failure, obstructive sleep apnea, COPD, recent diagnosis of COVID who was brought to the emergency room by EMS for difficulty breathing. Patient notes the onset of congestion and body aches on SaturdayOctober 16. At that time she was started on Zithromax and steroids and was awaiting her viral swab. She was diagnosed with COVID on SaturdayOctober 18. She was actually seen in our emergency room on the and was started on Paxlovid at that time. She notice clear congested yesterday but today feels like the congestion is very thick. She states that tonight she could not breathe in or exhale and she ran immediately to her bedroom and put her oxygen on as high as it would go which is 3 L but was having a lot of difficulty breathing. She thinks that she also cracked a rib from coughing so much. She has not had a fever. Upon her arrival O2 sats were 85% and we could only improve her to 89% initially. She is on the OxyMask at this time and O2 sats are now at 93%. She states she is feeling much better. She notes that EN route to the hospital she did have some chest pain but that is since resolved. She does not know if it is from coughing, angina or anxiety. She denies lower extremity edema, history of DVT or calf swelling. She did receive her COVID vaccinations. Ill Patient did try nebulizer at home but it did not seem to help. Related Data Home Medications Medication Instructions Recorded Confirmed alprazolam 0.5 mg tablet (Xanax) 0.5 mg PO BID PRN 03/02/22 10/21/23 aspirin 81 mg chewable tablet 81 mg PO DAILY 03/02/22 10/21/23 budesonide-formoterol HFA 160 2 inh inhalation BID 03/02/22 10/21/23 mcg-4.5 mcg/actuation aerosol inhaler clopidogrel 75 mg tablet (Plavix) 75 mg PO DAILY 03/02/22 10/21/23 esomeprazole magnesium 40 mg 40 mg PO DAILY 03/02/22 10/21/23 capsule,delayed release (Nexium) ezetimibe 10 mg tablet (Zetia) 10 mg PO DAILY 03/02/22 10/21/23 glimepiride 1 mg tablet 2 mg PO BID 03/02/22 10/21/23 ipratropium 0.5 mg-albuterol 3 mg 3 ml inhalation Q6-8H PRN 03/02/22 10/21/23 (2.5 mg base)/3 mL nebulization soln isosorbide mononitrate 60 mg 120 mg PO DAILY 03/02/22 10/21/23 tablet,extended release 24 hr levothyroxine 50 mcg tablet 50 mcg PO DAILY 03/02/22 10/21/23 (Synthroid) magnesium oxide 400 mg PO DAILY 03/02/22 10/21/23 meclizine 25 mg tablet 25 mg PO TID PRN 03/02/22 10/21/23 metoprolol succinate 50 mg 50 mg PO DAILY 03/02/22 10/21/23 tablet,extended release 24 hr mirtazapine 15 mg tablet 7.5 mg PO DAILY PRN 03/02/22 10/21/23 naloxone 4 mg/actuation nasal spray 4 mg intranasal Q2-3M PRN 03/02/22 10/21/23 nitroglycerin 0.4 mg sublingual 0.4 mg sublingual Q5M 03/02/22 10/21/23 tablet (Nitrostat) ondansetron HCl 4 mg tablet 4 mg PO Q8H PRN 03/02/22 10/21/23 prazosin 2 mg capsule 4 mg PO HS 03/02/22 10/21/23 rosuvastatin 20 mg tablet (Crestor) 20 mg PO DAILY 03/02/22 10/21/23 sennosides 8.6 mg-docusate sodium 2 tab PO BID 03/02/22 10/21/23 50 mg tablet sodium chloride 0.65 % nasal spray 2 spray intranasal Q2H PRN 03/02/22 10/21/23 aerosol (Nasal [place] (sodium chloride)) albuterol sulfate 90 mcg/actuation 2 puff inhalation Q4H PRN 03/30/22 10/21/23 aerosol inhaler buprenorphine HCl 2 mg sublingual 2 mg sublingual QID 03/30/22 10/21/23 tablet mirtazapine 30 mg tablet 30 mg PO HS 03/30/22 10/21/23 empagliflozin 25 mg tablet 25 mg PO DAILY 12/12/22 10/21/23 (Jardiance) quetiapine 200 mg tablet 200 mg PO QPM 12/12/22 10/21/23 azithromycin PO 10/21/23 cephalexin 500 mg capsule 500 mg PO QID 10/21/23 nirmatrelvir-ritonavir PO 10/21/23 prednisone .ROUTE 10/21/23 Previous Rx's Medication Instructions Recorded potassium chloride 20 mEq 40 meq (2 x 20 mEq) PO DAILY #60 04/02/22 tablet,extended release(part/cryst) tabs torsemide 20 mg tablet 20 mg PO BID #60 tabs 04/02/22 doxycycline hyclate 100 mg capsule 100 mg PO BID #14 caps 06/05/23 Allergies Allergy/AdvReac Type Severity Reaction Status Date / Time sumatriptan Allergy Severe Anaphylaxis Verified 10/21/23 21:42 buspirone Allergy Intermediate Rash Verified 10/21/23 21:42 fentanyl Allergy Intermediate Verified 10/21/23 21:42 gabapentin Allergy Intermediate gi upset Verified 10/21/23 21:42 niacin Allergy Intermediate Verified 10/21/23 21:42 trazodone Allergy Intermediate Verified 10/21/23 21:42 atorvastatin Allergy Mild myalgia Verified 10/21/23 21:42 codeine Allergy Mild itching Verified 10/21/23 21:42 rizatriptan Allergy Mild Flushing Verified 10/21/23 21:42 Review of Systems Status of ROS: Reports: 10 or more systems reviewed and unremarkable except as noted in History and below Const: Reports: fatigue; Denies: fever or chills Eyes: Denies: change in vision ENMT: Reports: nasal congestion; Denies: throat pain, neck pain or difficulty swallowing Cardio: Reports: chest pain, shortness of breath with exertion and shortness of breath when lying down; Denies: edema or swelling of feet/ankles Resp: Reports: shortness of breath, cough, wheezing and change in phlegm color GI: Reports: nausea; Denies: abdominal pain, vomiting, diarrhea or difficulty swallowing : Denies: painful urination Musculo: Denies: neck pain Neuro: Reports: weakness in extremities Psych: Reports: anxiety Endo: Reports: fatigue Allergy/Immuno: Reports: wheezing PFSH PFSH Medical History Hypokalemia ?E87.6 - Hypokalemia (ICD-10) Encephalopathy acute ?G93.40 - Encephalopathy, unspecified (ICD-10) Hyperkalemia ?E87.5 - Hyperkalemia (ICD-10) Hyponatremia ?E87.1 - Hypo-osmolality and hyponatremia (ICD-10) Coronary artery disease ?I25.10 - Atherosclerotic heart disease of [place] coronary artery without angina pectoris (ICD-10) Congestive heart failure ?I50.9 - Heart failure, unspecified (ICD-10) Diabetes mellitus type 2 in obese ?E11.69 - Type 2 diabetes mellitus with other specified complication (ICD-10) ?E66.9 - Obesity, unspecified (ICD-10) Respiratory failure ?J96.90 - Respiratory failure, unspecified, unspecified whether with hypoxia or hypercapnia (ICD-10) Acute hyponatremia ?E87.1 - Hypo-osmolality and hyponatremia (ICD-10) Congestive heart failure ?I50.9 - Heart failure, unspecified (ICD-10) Hypothyroidism ?E03.9 - Hypothyroidism, unspecified (ICD-10) Type 2 diabetes mellitus with circulatory disorder, without long-term current use of insulin ?E11.59 - Type 2 diabetes mellitus with other circulatory complications (ICD-10) Graves disease ?E05.00 - Thyrotoxicosis with diffuse goiter without thyrotoxic crisis or storm (ICD-10) SOCORRO (obstructive sleep apnea) ?G47.33 - Obstructive sleep apnea (adult) (pediatric) (ICD-10) CAD (coronary artery disease) ?I25.10 - Atherosclerotic heart disease of [place] coronary artery without angina pectoris (ICD-10) Recurrent major depression ?F33.9 - Major depressive disorder, recurrent, unspecified (ICD-10) History of nicotine dependence ?Z87.891 - Personal history of nicotine dependence (ICD-10) Chronic pain syndrome ?G89.4 - Chronic pain syndrome (ICD-10) Arthropathy of spinal facet joint ?M47.819 - Spondylosis without myelopathy or radiculopathy, site unspecified (ICD-10) Allergic rhinitis due to pollen ?J30.1 - Allergic rhinitis due to pollen (ICD-10) Insomnia ?G47.00 - Insomnia, unspecified (ICD-10) Hyperlipidemia ?E78.5 - Hyperlipidemia, unspecified (ICD-10) Lumbar spinal stenosis ?M48.061 - Spinal stenosis, lumbar region without neurogenic claudication (ICD-10) Opioid dependence ?F11.20 - Opioid dependence, uncomplicated (ICD-10) Asthma ?J45.909 - Unspecified asthma, uncomplicated (ICD-10) Refractory migraine ?G43.919 - Migraine, unspecified, intractable, without status migrainosus (ICD-10) Secondary polycythemia ?D75.1 - Secondary polycythemia (ICD-10) PTSD (post-traumatic stress disorder) ?F43.10 - Post-traumatic stress disorder, unspecified (ICD-10) Panic disorder ?F41.0 - Panic disorder [episodic paroxysmal anxiety] (ICD-10) Anxiety ?F41.9 - Anxiety disorder, unspecified (ICD-10) GERD (gastroesophageal reflux disease) ?K21.9 - Gastro-esophageal reflux disease without esophagitis (ICD-10) Chest pain ?R07.9 - Chest pain, unspecified (ICD-10) Edema ?R60.9 - Edema, unspecified (ICD-10) Acute on chronic heart failure with preserved ejection fraction ?I50.33 - Acute on chronic diastolic (congestive) heart failure (ICD-10) CO2 retention ?E87.2 - Acidosis (ICD-10) Cluster B personality disorder ?F60.89 - Other specific personality disorders (ICD-10) Leukocytosis ?D72.829 - Elevated white blood cell count, unspecified (ICD-10) Acute and chronic respiratory failure ([id number]) ?J96.20 - Acute and chronic respiratory failure, unspecified whether with hypoxia or hypercapnia (ICD-10) COPD (chronic obstructive pulmonary disease) ?J44.9 - Chronic obstructive pulmonary disease, unspecified (ICD-10) Surgical History H/O heart artery stent ?Z95.5 - Presence of coronary angioplasty implant and graft (ICD-10) Failed CABG (coronary artery bypass graft) ?T82.218A - Other mechanical complication of coronary artery bypass graft, initial encounter (ICD-10) Social History Narrative: Patient lives alone in [place]. Former smoker. No longer smoking. She does not drink alcohol. Her healthcare power of collections attorney is her future [id number]-eb-oxh, Mica. code status is DNR. Highest level of school completed/degree received: some college, no degree Smoking Status: Former smoker What tobacco products do you use: cigarettes Smoking quit date/years: >15 years ago Do you use any of these nicotine containing products: None Second hand tobacco smoke exposure: Yes How often do you have a drink containing alcohol: never How often do you have six or more drinks on one occasion: Never AUDIT-C Alcohol total score: 0 Non-prescribed substance use: denies use Caffeine: Yes service: No Exam Narrative: Exam Narrative: Alert and oriented. No acute distress. External eyes ears nose clear. Lips are dry. Neck is supple. Heart with a tachycardic rate but normal rhythm. Lungs are with distant breath sounds bilaterally on inspiration. Expiratory wheezing noted bilaterally. Abdomen soft. Lower extremities without edema or calf tenderness. Moving all extremities. Const: Vital Signs, click to edit/add: Vital Signs - 24 hr 10/21/23 21:34 10/21/23 22:01 10/21/23 22:31 Temperature 98.5 F Pulse Rate 107 H 106 H Pulse Rate [Pulse Oximeter] 119 H Respiratory Rate 22 Blood Pressure 81/61 L 85/59 L Blood Pressure [Ri ght Upper Arm] 126/75 Pulse Oximetry 80 L 91 93 Oxygen Delivery Me thod Room Air OxyMask OxyMask Oxygen Flow Rate 5 5 10/21/23 23:01 10/21/23 23:39 10/22/23 00:02 Temperature Pulse Rate 104 H 101 H 93 Pulse Rate [Pulse Oximeter] Respiratory Rate Blood Pressure 131/67 119/70 Blood Pressure [Ri ght Upper Arm] Pulse Oximetry 94 89 92 Oxygen Delivery Me thod OxyMask OxyMask OxyMask Oxygen Flow Rate 5 5 5 10/22/23 00:18 10/22/23 00:21 10/22/23 00:31 Temperature Pulse Rate 92 95 90 Pulse Rate [Pulse Oximeter] Respiratory Rate Blood Pressure 100/58 L 96/57 L 95/58 L Blood Pressure [Ri ght Upper Arm] Pulse Oximetry 93 91 92 Oxygen Delivery Me thod OxyMask OxyMask OxyMask Oxygen Flow Rate 3.5 3.5 3.5 10/22/23 00:42 Temperature Pulse Rate 89 Pulse Rate [Pulse Oximeter] Respiratory Rate Blood Pressure 88/52 L Blood Pressure [Ri ght Upper Arm] Pulse Oximetry 90 Oxygen Delivery Me thod OxyMask Oxygen Flow Rate 3.5 Documenting provider has reviewed patient's vital signs: yes Course Course ED Course: At this time patient does have COVID. She has a history of COPD on O2 mainly at night 1 L now with increased oxygen needs. She is hypotensive with a systolic blood pressure of 85 but mentating normally. Will give her 250 mL normal saline-certainly with COVID we would want to avoid excessive hydration and with her history of heart failure we would want to avoid excess fluids. At this time her O2 sats are 93%. Will try to Pare that down as she does have a history of CO2 retention. Plan on admission for this woman. Will need to check EKG, troponin, electrolytes and CBC as well as proBNP. Vital Signs Vital signs: Initial Vital Signs Temperature 98.5 F 10/21/23 21:34 Temperature Source Temporal Artery Scan 10/21/23 21:34 Pulse Rate 119 H 10/21/23 21:34 Respiratory Rate 22 10/21/23 21:34 Blood Pressure 126/75 10/21/23 21:34 Blood Pressure Mean 92 10/21/23 21:34 Blood Pressure Position Sitting 10/21/23 21:34 Pulse Oximetry 80 L 10/21/23 21:34 Oxygen Delivery Method Room Air 10/21/23 21:34 Vital Signs Temperature 98.5 F 10/21/23 21:34 Pulse Rate 119 H 10/21/23 21:34 Respiratory Rate 22 10/21/23 21:34 Blood Pressure 126/75 10/21/23 21:34 Pulse Oximetry 80 L 10/21/23 21:34 Oxygen Delivery Method Room Air 10/21/23 21:34 Temperature 98.5 F 10/21/23 21:34 Pulse Rate 89 10/22/23 00:42 Respiratory Rate 22 10/21/23 21:34 Blood Pressure 88/52 L 10/22/23 00:42 Pulse Oximetry 90 10/22/23 00:42 Oxygen Delivery Method OxyMask 10/22/23 00:42 Oxygen Flow Rate 3.5 10/22/23 00:42 Medications Administered Medications: Generic Name Dose Route Start Last Admin Trade Name Kanwal PRN Reason Stop Dose Admin Sodium Chloride 250 mls @ 250 mls/hr 10/21/23 22:39 10/22/23 00:28 0.9 % Sodium Chloride 250 Ml IV 10/21/23 23:38 Infused .Q1H ONE Infusion Medical Decision Making MDM Narrative Medical decision making narrative: 1. COVID with hypoxia-O2 level upon arrival was 80%. Initially, unable to raise oxygen level past 89%, with OxyMask at 10 L we were able to get up to 93%. Patient was feeling much better. Given her history of CO2 retention however we were very cautious and we are backing off the oxygen level to 5 L. patient has been on Paxlovid. Given the fact that she will be hospitalized will give her 1 dose of remdesivir 200 mg IV prior to admission. I do not note any significant infiltrate on chest x-ray. White count elevated at 13. 2. Hypotension-patient has not been eating a lot as she is had some nausea. Her lips are dry tonight. She is tachycardic and is afebrile. Bolus of normal saline 250 mL given. Caution regarding history of CHF. This is improved a subsequent blood pressure 126 systolic. Tachycardia has resolved. Baseline proBNP tonight given patient's hospitalization and subsequent fluid need. 3. Chest pain-this occurred in the EMS ambulance. Initial troponin is 0.02 and EKG is reassuring. Recheck of troponin will be at 0045 hours. 3. COPD-patient is on 1 L of oxygen at night while sleeping typically. She is currently on steroids but has not been chronically on steroids. 4. Chronic pain 5. Disposition-Dr. Park, hospitalist has accepted this patient to the floor. Medical Records Medical records reviewed: Yes I reviewed the patient's medical records Lab Data Lab results reviewed: Yes I reviewed the patient's lab results Labs: Lab Results 10/21/23 10/21/23 Range/Units 22:39 23:15 WBC 13.11 H (4.50-11.00) K/uL RBC 5.00 (4.00-5.20) m/uL Hgb 15.2 (12.0-16.0) gm/dL Hct 47.1 (33.0-51.0) % MCV 94 (80-100) fL MCH 30 (26-34) pg MCHC 32 (32-36) gm/dL RDW Coeff of Renetta 12.4 (11.5-15.5) % Plt Count 229 (140-440) K/uL Neut % (Auto) 75.6 H (42.0-72.0) % Lymph % (Auto) 14.9 L (20-44) % [place] % (Auto) 7.8 (0.0-11.0) % Eos % (Auto) 0.0 (0.0-7.0) % Baso % (Auto) 0.2 (0.0-3.0) % Neut # (Auto) 9.90 H (1.7-7.0) K/uL Lymph # (Auto) 2.00 (0.90-2.90) K/uL [place] # (Auto) 1.00 H (0.00-0.90) K/UL Eos # (Auto) 0.00 (0.00-0.50) K/uL Baso # (Auto) 0.00 (0.00-0.30) K/uL Abs Immat Gran (auto) 0.20 (0.00-0.30) K/uL Imm/Tot Granulo (auto) 1.5 % VBG pH 7.388 (7.32-7.43) VBG pCO2 60 H (40-50) mmHG VBG pO2 49.2 H (25-47) mmHG VBG HCO3 36 H (21-28) mmol/L Sodium 133 L (135-149) mmol/L Potassium 3.9 (3.6-5.1) mmol/L Chloride 92 L (96-114) mmol/L Carbon Dioxide 32 (20-32) mmol/L Anion Gap 9 (7-15) mEq/L BUN 24 (7-30) mg/dL Creatinine 0.8 (0.5-1.5) mg/dL Estimated Creat Clear 49.08 Estimated GFR 82 ml/min Glucose 163 H (60-115) mg/dL Calcium 8.9 (8.4-10.6) mg/dL Total Bilirubin 0.5 (0.1-1.5) mg/dL AST 34 (12-35) U/L ALT 26 (4-35) U/L Alkaline Phosphatase 84 (40-150) U/L NT-Pro-B Natriuret Pep 2420 pg/mL Total Protein 8.1 (6.0-8.3) g/dL Albumin 4.7 (3.3-5.0) g/dL Lab Acknowledgement Test Added POC Troponin I 0.02 (0.01-0.04) ng/ml Imaging Data Chest x-ray: Attestation: I have reviewed the pertinent imaging results. My impression: By my read no obvious infiltrate. Radiologist's impression: Cardiovascular and mediastinum: Stable cardiomediastinal silhouette. Median sternotomy, unchanged. Lungs and pleural spaces: No focal consolidation. No pleural effusions or pneumothorax. Bones and soft tissues: No significant findings. IMPRESSION: No focal consolidation. ECG Data Attestation: I personally reviewed and interpreted this ECG as follows: Interpretation: EKG by my read shows sinus tachycardia at a rate of 101. I do not note any acute ST or T-wave changes. QT intervals as well as OH intervals within normal limits. Critical Care Time Critical Care Time Critical Care Time: Yes Attestation: The patient required my highest level preparedness to intervene emergently and I personally spent this critical care time directly and personally managing the patient. This critical care time included: Obtaining a history; Examining the patient; Pulse oximetry; Ordering and reviewing of studies; Arranging urgent treatment with development of a management plan; Evaluation of patients response to treatment; Frequent reassessment discussions with other providers. This critical care time was performed to assess and manage the high probability of imminent life-threatening deterioration that could result in multiorgan failure. It was exclusive of separate billable procedures and treating other patients and teaching time. Total Critical Care Time in Minutes: 45
[2023-10-21 22:31] VITALS: BP 85/59; PULSE 106; O2SAT 93
--- NOTE | 2023-10-21 22:39 | XR_ITS ---
Patient: RUEL VERAS Facility:?[facility] Patient ID:?[id number] Site Patient ID:?[id number]. Site :?[id number] Study:?XRay-Chest Portable one view-10/21/2023 11:25:52 PM Ordering Physician:INA Final Report: INDICATION: Shortness of breath. TECHNIQUE: Chest 1 view. COMPARISON: 10/19/2023. FINDINGS: Cardiovascular and mediastinum: Stable cardiomediastinal silhouette. Median sternotomy, unchanged. Lungs and pleural spaces: No focal consolidation. No pleural effusions or pneumothorax. Bones and soft tissues: No significant findings. IMPRESSION: No focal consolidation. Dictated by Jacob Lubin MD @ 10/22/2023 12:11:03 AM Signed by:?Jacob Lubin MD @10/22/2023 12:11:03 AM (Electronic Signature)
[2023-10-21] MEDS: 0.9 % SODIUM CHLORIDE 250 ml 250 ML IV (23:00)
[2023-10-21 23:01] VITALS: PULSE 104; O2SAT 94
[2023-10-21 23:31] LABS: HCO3 VBG 36 mmol/L (21-28); PCO2 VBG 60 mmHG (40-50); PO2 VBG 49.2 mmHG (25-47); pH VBG 7.388 (7.32-7.43)
[2023-10-21 23:32] LABS: Basophils Percent Auto 0.2 % (0.0-3.0); Hematocrit 47.1 % (33.0-51.0); Hemoglobin* 15.2 gm/dL (12.0-16.0); Immature Granulocytes Pct Auto 1.5 %; Lymphocytes Percent Auto 14.9 % (20-44); Mean Corpuscular HGB Conc 32 gm/dL (32-36); Mean Corpuscular Hemoglobin 30 pg (26-34); Mean Corpuscular Volume 94 fL (80-100); Monocytes Percent Auto 7.8 % (0.0-11.0); Neutrophils Percent Auto 75.6 % (42.0-72.0); Platelet Count* 229 K/uL (140-440); RDW Coefficient of Variation % 12.4 % (11.5-15.5); White Blood Count* 13.11 K/uL (4.50-11.00)
[2023-10-21 23:33] LABS: Slide Review Reflex No
[2023-10-21 23:39] VITALS: BP 131/67; PULSE 101; O2SAT 89
[2023-10-21 23:53] LABS: Albumin* 4.7 g/dL (3.3-5.0); Chloride* 92 mmol/L (96-114); Potassium* 3.9 mmol/L (3.6-5.1); Sodium* 133 mmol/L (135-149)
[2023-10-21 23:55] LABS: Bilirubin Total* 0.5 mg/dL (0.1-1.5); Creatinine* 0.8 mg/dL (0.5-1.5); Est. Creatinine Clearance* 49.08; Estimated Glomerular Filt Rate 82 ml/min
[2023-10-21 23:56] LABS: Alanine Aminotransferase* 26 U/L (4-35); Alkaline Phosphatase* 84 U/L (40-150); Anion Gap 9 mEq/L (7-15); Aspartate Amino Transferase* 34 U/L (12-35); Blood Urea Nitrogen* 24 mg/dL (7-30); Calcium* 8.9 mg/dL (8.4-10.6); Carbon Dioxide* 32 mmol/L (20-32); Glucose* 163 mg/dL (60-115); Total Protein* 8.1 g/dL (6.0-8.3)
[2023-10-21 23:56] LABS: Troponin, Point-of-Care* 0.02 ng/ml (0.01-0.04)
[2023-10-22] VITALS (16 sets, daily range): BP systolic 88–119; BP diastolic 52–75; PULSE 82–114; RESP 20–25; TEMP 37–37.3; O2SAT 85–93; BMI 27.1
[2023-10-22 00:06] LABS: NT Pro B Type NatriureticPept* 2420 pg/mL
--- NOTE | 2023-10-22 00:44 | PM.IMHP1 ---
Hospitalist- H&P: HPI History of Present Illness Date Seen: 10/22/23 Chief complaint: Covid + Narrative: Meg Monahan is a 63 year old female who presented to the ED via EMS for shortness of breath and cough, known + COVID. COVID symptoms began on 10/16/23, she was + on 10/18/23 at the [facility], Paxlovid and steroids initiated. Had a fever at home yesterday. This afternoon, she had a severe coughing paroxysm and difficulty breathing, improved after coughing up a large amount of phlegm. At that time, she called EMS. ER Course and Findings: - oxygen saturations 85% on arrival to ED, supplemental oxygen initiated - given IV Remdesivir - Co2 60, WBC 13, BNP 2400 - reassuring CXR and EKG - BP on the lower side for patient (asymptomatic), no tachycardia or fever Given patient's acute on chronic hypoxic hypercarbic respiratory failure in the setting of COVID infection, she is admitted to the hospital. Patient has multiple comorbidities, updated below. PCP is Dr. Dill locally. She also sees pain management and psych for prescription of controlled substances. Review of Systems Status of ROS: Reports: 10 or more systems reviewed and unremarkable except as noted in History and below [facility] Medical History (Updated 10/22/23 @ 01:22 by Amena Park MD) Hypokalemia ?E87.6 - Hypokalemia (ICD-10) Encephalopathy acute ?G93.40 - Encephalopathy, unspecified (ICD-10) Hyperkalemia ?E87.5 - Hyperkalemia (ICD-10) Hyponatremia ?E87.1 - Hypo-osmolality and hyponatremia (ICD-10) Coronary artery disease ?I25.10 - Atherosclerotic heart disease of [place] coronary artery without angina pectoris (ICD-10) Congestive heart failure ?I50.9 - Heart failure, unspecified (ICD-10) Diabetes mellitus type 2 in obese ?E11.69 - Type 2 diabetes mellitus with other specified complication (ICD-10) ?E66.9 - Obesity, unspecified (ICD-10) Respiratory failure ?J96.90 - Respiratory failure, unspecified, unspecified whether with hypoxia or hypercapnia (ICD-10) Acute hyponatremia ?E87.1 - Hypo-osmolality and hyponatremia (ICD-10) Congestive heart failure ?I50.9 - Heart failure, unspecified (ICD-10) Hypothyroidism ?E03.9 - Hypothyroidism, unspecified (ICD-10) Type 2 diabetes mellitus with circulatory disorder, without long-term current use of insulin ?E11.59 - Type 2 diabetes mellitus with other circulatory complications (ICD-10) Graves disease ?E05.00 - Thyrotoxicosis with diffuse goiter without thyrotoxic crisis or storm (ICD-10) SOCORRO (obstructive sleep apnea) ?G47.33 - Obstructive sleep apnea (adult) (pediatric) (ICD-10) CAD (coronary artery disease) ?I25.10 - Atherosclerotic heart disease of [place] coronary artery without angina pectoris (ICD-10) Recurrent major depression ?F33.9 - Major depressive disorder, recurrent, unspecified (ICD-10) History of nicotine dependence ?Z87.891 - Personal history of nicotine dependence (ICD-10) Chronic pain syndrome ?G89.4 - Chronic pain syndrome (ICD-10) Arthropathy of spinal facet joint ?M47.819 - Spondylosis without myelopathy or radiculopathy, site unspecified (ICD-10) Allergic rhinitis due to pollen ?J30.1 - Allergic rhinitis due to pollen (ICD-10) Insomnia ?G47.00 - Insomnia, unspecified (ICD-10) Hyperlipidemia ?E78.5 - Hyperlipidemia, unspecified (ICD-10) Lumbar spinal stenosis ?M48.061 - Spinal stenosis, lumbar region without neurogenic claudication (ICD-10) Opioid dependence ?F11.20 - Opioid dependence, uncomplicated (ICD-10) Refractory migraine ?G43.919 - Migraine, unspecified, intractable, without status migrainosus (ICD-10) Secondary polycythemia ?D75.1 - Secondary polycythemia (ICD-10) PTSD (post-traumatic stress disorder) ?F43.10 - Post-traumatic stress disorder, unspecified (ICD-10) Panic disorder ?F41.0 - Panic disorder [episodic paroxysmal anxiety] (ICD-10) Anxiety ?F41.9 - Anxiety disorder, unspecified (ICD-10) GERD (gastroesophageal reflux disease) ?K21.9 - Gastro-esophageal reflux disease without esophagitis (ICD-10) Chest pain ?R07.9 - Chest pain, unspecified (ICD-10) Edema ?R60.9 - Edema, unspecified (ICD-10) Acute on chronic heart failure with preserved ejection fraction ?I50.33 - Acute on chronic diastolic (congestive) heart failure (ICD-10) CO2 retention ?E87.2 - Acidosis (ICD-10) Cluster B personality disorder ?F60.89 - Other specific personality disorders (ICD-10) Leukocytosis ?D72.829 - Elevated white blood cell count, unspecified (ICD-10) Acute and chronic respiratory failure (smhtr-yr-lwtyepo) ?J96.20 - Acute and chronic respiratory failure, unspecified whether with hypoxia or hypercapnia (ICD-10) COPD (chronic obstructive pulmonary disease) ?J44.9 - Chronic obstructive pulmonary disease, unspecified (ICD-10) Surgical History H/O heart artery stent ?Z95.5 - Presence of coronary angioplasty implant and graft (ICD-10) Failed CABG (coronary artery bypass graft) ?T82.218A - Other mechanical complication of coronary artery bypass graft, initial encounter (ICD-10) Social History (Updated 10/22/23 @ 01:16 by Amena Park MD) Narrative: Patient lives alone in [place]. Former smoker. She does not drink alcohol. Her healthcare power of assistant county attorney is her future [id number], Mica. Requests Full Code status What is your current living situation?: I presently have a place to live Problems where you live: no known problems Problems where you live details: NA In the past 12 months, utilities in danger of being shut off: no In past 12 months, lack of transportation kept you from medical appts, meetings, work, or getting things needed for daily living: no In the past 12 mos, have been you worried that your food would run out before you had money to buy more?: never true In the past 12 mos, the food you bought just didn't last and you didn't have money to buy more?: never true Highest level of school completed/degree received: some college, no degree Smoking Status: Former smoker What tobacco products do you use: cigarettes Smoking quit date/years: >15 years ago Do you use any of these nicotine containing products: None Second hand tobacco smoke exposure: Yes How often do you have a drink containing alcohol: never How often do you have six or more drinks on one occasion: Never AUDIT-C Alcohol total score: 0 Non-prescribed substance use: denies use Caffeine: Yes How often does anyone, including family, friends and others, physically hurt you: never How often does anyone, including family, friends and others, insult or talk down to you: never How often does anyone, including family, friends and others, threaten you with harm: never How often does anyone, including family, friends and others, scream or curse at you: never service: No Meds Home Medications and Allergies Home Medications Medication Instructions Recorded Confirmed Type alprazolam 0.5 mg tablet (Xanax) 0.5 mg PO BID PRN 03/02/22 10/21/23 History aspirin 81 mg chewable tablet 81 mg PO DAILY 03/02/22 10/21/23 History budesonide-formoterol HFA 160 2 inh inhalation BID 03/02/22 10/21/23 History mcg-4.5 mcg/actuation aerosol inhaler clopidogrel 75 mg tablet (Plavix) 75 mg PO DAILY 03/02/22 10/21/23 History esomeprazole magnesium 40 mg 40 mg PO DAILY 03/02/22 10/21/23 History capsule,delayed release (Nexium) ezetimibe 10 mg tablet (Zetia) 10 mg PO DAILY 03/02/22 10/21/23 History glimepiride 1 mg tablet 2 mg PO BID 03/02/22 10/21/23 History ipratropium 0.5 mg-albuterol 3 mg 3 ml inhalation Q6-8H PRN 03/02/22 10/21/23 History (2.5 mg base)/3 mL nebulization soln isosorbide mononitrate 60 mg 120 mg PO DAILY 03/02/22 10/21/23 History tablet,extended release 24 hr levothyroxine 50 mcg tablet 50 mcg PO DAILY 03/02/22 10/21/23 History (Synthroid) magnesium oxide 400 mg PO DAILY 03/02/22 10/21/23 History meclizine 25 mg tablet 25 mg PO TID PRN 03/02/22 10/21/23 History metoprolol succinate 50 mg 50 mg PO DAILY 03/02/22 10/21/23 History tablet,extended release 24 hr mirtazapine 15 mg tablet 7.5 mg PO DAILY PRN 03/02/22 10/21/23 History naloxone 4 mg/actuation nasal spray 4 mg intranasal Q2-3M PRN 03/02/22 10/21/23 History nitroglycerin 0.4 mg sublingual 0.4 mg sublingual Q5M 03/02/22 10/21/23 History tablet (Nitrostat) ondansetron HCl 4 mg tablet 4 mg PO Q8H PRN 03/02/22 10/21/23 History prazosin 2 mg capsule 4 mg PO HS 03/02/22 10/21/23 History rosuvastatin 20 mg tablet (Crestor) 20 mg PO DAILY 03/02/22 10/21/23 History sennosides 8.6 mg-docusate sodium 2 tab PO BID 03/02/22 10/21/23 History 50 mg tablet sodium chloride 0.65 % nasal spray 2 spray intranasal Q2H PRN 03/02/22 10/21/23 History aerosol (Nasal [place] (sodium chloride)) albuterol sulfate 90 mcg/actuation 2 puff inhalation Q4H PRN 03/30/22 10/21/23 History aerosol inhaler buprenorphine HCl 2 mg sublingual 2 mg sublingual QID 03/30/22 10/21/23 History tablet mirtazapine 30 mg tablet 30 mg PO HS 03/30/22 10/21/23 History empagliflozin 25 mg tablet 25 mg PO DAILY 12/12/22 10/21/23 History (Jardiance) quetiapine 200 mg tablet 200 mg PO QPM 12/12/22 10/21/23 History azithromycin PO 10/21/23 History cephalexin 500 mg capsule 500 mg PO QID 10/21/23 History nirmatrelvir-ritonavir PO 10/21/23 History prednisone .ROUTE 10/21/23 History Allergies Allergy/AdvReac Type Severity Reaction Status Date / Time sumatriptan Allergy Severe Anaphylaxis Verified 10/21/23 21:42 buspirone Allergy Intermediate Rash Verified 10/21/23 21:42 fentanyl Allergy Intermediate Verified 10/21/23 21:42 gabapentin Allergy Intermediate gi upset Verified 10/21/23 21:42 niacin Allergy Intermediate Verified 10/21/23 21:42 trazodone Allergy Intermediate Verified 10/21/23 21:42 atorvastatin Allergy Mild myalgia Verified 10/21/23 21:42 codeine Allergy Mild itching Verified 10/21/23 21:42 rizatriptan Allergy Mild Flushing Verified 10/21/23 21:42 Exam Narrative: Exam Narrative: GEN: Alert and oriented, speaking in full sentences during my visit. Does appear to be mildly dyspnea after ambulating to the bathroom HEENT: EOMIs bilaterally, no scleral icterus CV: RRR, No concerning murmurs, rubs, or gallops R: Decreased bibasilar lung sounds with wheezing at apices Ext: wwp, no concerning edema Skin: No concerning skin lesions or rashes on exposed skin Neuro: No focal deficits Psych: Appropriate Const: Vital Signs, click to edit/add: Vital Signs - 24 hr 10/21/23 21:34 10/21/23 22:01 10/21/23 22:31 Temperature 98.5 F Pulse Rate 107 H 106 H Pulse Rate [Pulse Oximeter] 119 H Respiratory Rate 22 Blood Pressure 81/61 L 85/59 L Blood Pressure [Ri ght Upper Arm] 126/75 Pulse Oximetry 80 L 91 93 Oxygen Delivery Me thod Room Air OxyMask OxyMask Oxygen Flow Rate 5 5 10/21/23 23:01 10/21/23 23:39 10/22/23 00:02 Temperature Pulse Rate 104 H 101 H 93 Pulse Rate [Pulse Oximeter] Respiratory Rate Blood Pressure 131/67 119/70 Blood Pressure [Ri ght Upper Arm] Pulse Oximetry 94 89 92 Oxygen Delivery Me thod OxyMask OxyMask OxyMask Oxygen Flow Rate 5 5 5 10/22/23 00:18 10/22/23 00:21 Temperature Pulse Rate 92 95 Pulse Rate [Pulse Oximeter] Respiratory Rate Blood Pressure 100/58 L 96/57 L Blood Pressure [Ri ght Upper Arm] Pulse Oximetry 93 91 Oxygen Delivery Me thod OxyMask OxyMask Oxygen Flow Rate 3.5 3.5 Hospitalist - H&P: Result Labs Labs: Short CBC 10/21/23 Range/Units 23:15 WBC 13.11 H (4.50-11.00) K/uL Hgb 15.2 (12.0-16.0) gm/dL Hct 47.1 (33.0-51.0) % Plt Count 229 (140-440) K/uL BMP 10/21/23 23:15 Sodium 133 L Potassium 3.9 Chloride 92 L Carbon Dioxide 32 BUN 24 Creatinine 0.8 Glucose 163 H Calcium 8.9 Liver Function 10/21/23 Range/Units 23:15 Total Bilirubin 0.5 (0.1-1.5) mg/dL AST 34 (12-35) U/L ALT 26 (4-35) U/L Alkaline Phosphatase 84 (40-150) U/L Albumin 4.7 (3.3-5.0) g/dL Assessment and Plan Assessment and plan (1) Acute on chronic respiratory failure with hypoxia and hypercapnia: Problem comment: - primarily related to COVID, in addition to concomitant COPD exacerbation, does not appear to have any bacterial infection at this time - remdesivir, supplemental oxygen, nebs, steroids - RT referral Status: Acute (2) COVID: Problem comment: + on 10/19, treated with 3 days of Paxlovid as an outpatient - given Remdesivir in ED on 10/21 - continue supplemental oxygen Status: Acute (3) Chronic narcotic use: Problem comment: - followed by pain clinic Status: Acute (4) SOCORRO (obstructive sleep apnea): Problem comment: - uses CPAP at home Status: Acute (5) Hypotension: Problem comment: - asymptomatic, likely related to decreased po intake while continuing to take antihypertensives - no fever, no tachycardia, no evidence of sepsis at this time but will monitor closely - holding home blood pressure medications Status: Acute Plan - per above - patient requests full code status - SCDs, Plavix and aspirin for prophylaxis
--- NOTE | 2023-10-22 00:45 | ED.NURSE ---
Repeat trop drawn and running. Handoff report given to medical auditor. food mixer updated to start remdesivir on floor, per house sup.
--- NOTE | 2023-10-22 04:51 | PC.NURSE ---
Shift note: Pt arrived from ED to the unite on a wheelchair alert and oriented and conscious. Pt came with 5L of oxygen via nasal cannula. Reported of SOB, cough and rib pain resulted from the persistent cough. MD reviewed patient and ordered treatment given. Oxygen titrated to 4L to keep the O2 above 88%.
[2023-10-22] MEDS: predniSONE 20 MG TABLET 40 MG PO ×2 (05:04→09:24)
[2023-10-22 06:34] LABS: HCO3 VBG 36 mmol/L (21-28); PO2 VBG 57.9 mmHG (25-47); pH VBG 7.344 (7.32-7.43)
[2023-10-22] MEDS: OMEPRAZOLE 20 MG CAPSULE DR 40 MG PO (06:36)
[2023-10-22] MEDS: LEVOTHYROXINE 50 MCG TABLET PO (06:37)
[2023-10-22 06:46] LABS: PCO2 VBG 67 mmHG (40-50)
[2023-10-22 07:02] LABS: Chloride* 96 mmol/L (96-114); Potassium* 3.8 mmol/L (3.6-5.1); Sodium* 136 mmol/L (135-149)
[2023-10-22 07:05] LABS: Anion Gap 8 mEq/L (7-15); Blood Urea Nitrogen* 23 mg/dL (7-30); Carbon Dioxide* 32 mmol/L (20-32); Creatinine* 0.7 mg/dL (0.5-1.5); Est. Creatinine Clearance* 49.08; Estimated Glomerular Filt Rate 97 ml/min; Glucose* 203 mg/dL (60-115)
[2023-10-22 07:06] LABS: Calcium* 8.5 mg/dL (8.4-10.6); Magnesium* 2.2 mg/dL (1.5-2.6)
[2023-10-22 07:15] LABS: Basophils Percent Auto 0.2 % (0.0-3.0); Immature Granulocytes Pct Auto 1.7 %; Lymphocytes Percent Auto 21.3 % (20-44); Mean Corpuscular HGB Conc 33 gm/dL (32-36); Mean Corpuscular Hemoglobin 31 pg (26-34); Mean Corpuscular Volume 96 fL (80-100); Monocytes Percent Auto 9.9 % (0.0-11.0); Neutrophils Percent Auto 66.9 % (42.0-72.0); Platelet Count* 228 K/uL (140-440); RDW Coefficient of Variation % 12.8 % (11.5-15.5); Red Blood Count 4.48 m/uL (4.00-5.20)
[2023-10-22 07:48] LABS: Slide Review Reflex No
--- NOTE | 2023-10-22 08:06 | CT_ITS ---
Patient: RUEL VERAS Facility:?[facility] Patient ID:?[id number] Site Patient ID:?[id number] Site :?[id number] Study:?CT-Chest PE 95CC ISOVUE 370-10/22/2023 9:50:54 AM Ordering Physician:LOS Final Report: INDICATION: Respiratory failure. COVID. COMPARISON: None TECHNIQUE: : CT examination of the chest was performed with the uneventful intravenous administration of 95 cc of Isovue 370 while thin axial sections were obtained from above the apices of the lungs to the lung bases. Please note that all CT scans at this facility use dose modulation, iterative reconstruction, and/or weight-based dosing when appropriate to reduce radiation dose to as low as reasonably achievable. FINDINGS: : HEART and MEDIASTINUM: The heart size is normal. There is no mediastinal or hilar adenopathy or mass. There is no pericardial effusion. PULMONARY ARTERIAL CIRCULATION: There is no visible intraluminal filling defect to suggest pulmonary embolus. LUNGS: The lungs show no focal consolidation or mass. Linear opacities are noted which are probably atelectatic. PLEURAL SPACES: There is no pleural effusion, pneumothorax or pleural based mass. VISUALIZED UPPER ABDOMEN: Hepatic steatosis. Otherwise, the limited visualized upper abdominal structures appear normal. OSSEOUS STRUCTURES: Age-appropriate appearance. No acute fracture or destructive process. TUBES and LINES: None. IMPRESSION: No findings of pulmonary embolus. Scattered linear opacities are noted which are probably atelectatic. Please note that all CT scans at this facility use dose modulation, iterative reconstruction, and/or weight-based dosing when appropriate to reduce radiation dose to as low as reasonably achievable. Dictated by Tawanda Coulter MD @ 10/22/2023 9:57:15 AM Signed by:?Tawanda Coulter MD @10/22/2023 9:57:15 AM (Electronic Signature)
[2023-10-22 09:00] LABS: Procalcitonin* 0.03 ng/mL (<0.50)
[2023-10-22] MEDS: ASPIRIN 81 MG TAB.CHEW PO (09:24)
[2023-10-22] MEDS: CLOPIDOGREL 75 MG TABLET PO (09:24)
[2023-10-22] MEDS: ROSUVASTATIN CALCIUM 10 MG TABLET 20 MG PO (09:24)
[2023-10-22] MEDS: buprenorphine HCL 2 MG TAB.SUBL SL ×4 (09:24→21:57)
[2023-10-22] MEDS: ALBUTEROL INHALER 2 PUFF IH (09:25)
[2023-10-22] MEDS: SODIUM CHLORIDE 0.9 % (FLUSH) 10 ML SYRINGE 5 ML IVF ×2 (09:28→16:37)
--- NOTE | 2023-10-22 10:52 | PM.IMPN1 ---
Progress Note: A&P Assessment and plan (1) Acute on chronic respiratory failure with hypoxia and hypercapnia: Problem details: - primarily related to COPD with superimposed COVID. - BARICITNIB, high flow oxygen, nebs, IV solumedrol. - RT referral Status: Acute (2) COVID: Problem details: + on 10/19, treated with 3 days of Paxlovid as an outpatient - given Remdesivir in ED on 10/21 - continue supplemental oxygen - Baricitnib started 10/22 Status: Acute (3) Chronic narcotic use: Problem details: - followed by pain clinic Status: Acute (4) SOCORRO (obstructive sleep apnea): Problem details: - uses CPAP at home Status: Acute (5) Hypotension: Problem details: - asymptomatic, likely related to decreased po intake while continuing to take antihypertensives - no fever, no tachycardia, no evidence of sepsis at this time but will monitor closely - holding home blood pressure medications Status: Acute Subjective Date Seen: 10/22/23 Interval history: Daily Progress Note - Hospital Medicine Day #: 2 CC: hypercapnic hypoxic resp failure, +COVID, +COPD excerbation OVERNIGHT UPDATES FROM STAFF & MED, LAB, IMAGING UPDATES -respiratory failure worsening and in need of high-flow O2 by mid morning. Venous blood gas demonstrates hypercapnia. -CTA of her chest was obtained IMPRESSION: No findings of pulmonary embolus. Scattered linear opacities are noted which are probably atelectatic. -WBC now down trending 13-11. Hemoglobin stable. Platelet stable. -electrolytes have normalized. Glucose 203 -procalcitonin is normal. Objective: tearful, anxious. alert Vitals: see above Lungs: scattered wheeze/ronchi Cardiac: S1S2. Disposition/Potential discharge - Likely to return to previous living situation. Today I spent 50minutes seeing the patient, reviewing Expanse and EPIC notes/diagnostics, discussing the care plan with our care time that includes social work, PT/OT, pharmacy, RT, retirement and documenting my impressions and plan in the medical record. Exam Const: Vital Signs, click to edit/add: Vital Signs - 24 hr 10/21/23 21:34 10/21/23 22:01 10/21/23 22:31 Temperature 98.5 F Pulse Rate 107 H 106 H Pulse Rate [Left P ulse Oximeter] Pulse Rate [Pulse Oximeter] 119 H Respiratory Rate 22 Blood Pressure 81/61 L 85/59 L Blood Pressure [Le ft Arm] Blood Pressure [Ri ght Upper Arm] 126/75 Pulse Oximetry 80 L 91 93 Oxygen Delivery Me thod Room Air OxyMask OxyMask Oxygen Flow Rate 5 5 10/21/23 23:01 10/21/23 23:39 10/22/23 00:02 Temperature Pulse Rate 104 H 101 H 93 Pulse Rate [Left P ulse Oximeter] Pulse Rate [Pulse Oximeter] Respiratory Rate Blood Pressure 131/67 119/70 Blood Pressure [Le ft Arm] Blood Pressure [Ri ght Upper Arm] Pulse Oximetry 94 89 92 Oxygen Delivery Me thod OxyMask OxyMask OxyMask Oxygen Flow Rate 5 5 5 10/22/23 00:18 10/22/23 00:21 10/22/23 00:31 Temperature Pulse Rate 92 95 90 Pulse Rate [Left P ulse Oximeter] Pulse Rate [Pulse Oximeter] Respiratory Rate Blood Pressure 100/58 L 96/57 L 95/58 L Blood Pressure [Le ft Arm] Blood Pressure [Ri ght Upper Arm] Pulse Oximetry 93 91 92 Oxygen Delivery Me thod OxyMask OxyMask OxyMask Oxygen Flow Rate 3.5 3.5 3.5 10/22/23 00:42 10/22/23 01:19 10/22/23 01:25 Temperature 98.6 F Pulse Rate 89 Pulse Rate [Left P ulse Oximeter] 107 H Pulse Rate [Pulse Oximeter] Respiratory Rate 22 22 Blood Pressure 88/52 L Blood Pressure [Le ft Arm] 106/75 Blood Pressure [Ri ght Upper Arm] Pulse Oximetry 90 88 88 Oxygen Delivery Me thod OxyMask OxyMask OxyMask Oxygen Flow Rate 3.5 4 4 10/22/23 03:00 10/22/23 07:00 10/22/23 07:00 Temperature 98.6 F Pulse Rate Pulse Rate [Left P ulse Oximeter] 86 99 Pulse Rate [Pulse Oximeter] Respiratory Rate 22 24 25 H Blood Pressure Blood Pressure [Le ft Arm] 106/54 L Blood Pressure [Ri ght Upper Arm] Pulse Oximetry 92 88 Oxygen Delivery Me thod OxyMask Nasal Cannula Oxygen Flow Rate 4 3 10/22/23 09:15 Temperature Pulse Rate Pulse Rate [Left P ulse Oximeter] Pulse Rate [Pulse Oximeter] Respiratory Rate 24 Blood Pressure Blood Pressure [Le ft Arm] Blood Pressure [Ri ght Upper Arm] Pulse Oximetry 85 L Oxygen Delivery Me thod Nasal Cannula Oxygen Flow Rate 5 Labs Labs: Laboratory Results - last 24 hr 10/21/23 10/21/23 10/22/23 22:39 23:15 00:45 WBC 13.11 H RBC 5.00 Hgb 15.2 Hct 47.1 MCV 94 MCH 30 MCHC 32 RDW Coeff of Renetta 12.4 Plt Count 229 Neut % (Auto) 75.6 H Lymph % (Auto) 14.[address] % (Auto) 7.8 Eos % (Auto) 0.0 Baso % (Auto) 0.2 Neut # (Auto) 9.90 H Lymph # (Auto) 2.00 [place] # (Auto) 1.00 H Eos # (Auto) 0.00 Baso # (Auto) 0.00 Abs Immat Gran (auto) 0.20 Imm/Tot Granulo (auto) 1.5 VBG pH 7.388 VBG pCO2 60 H VBG pO2 49.2 H VBG HCO3 36 H Sodium 133 L Potassium 3.9 Chloride 92 L Carbon Dioxide 32 Anion Gap 9 BUN 24 Creatinine 0.8 Estimated Creat Clear 49.08 Estimated GFR 82 Glucose 163 H Calcium 8.9 Magnesium Total Bilirubin 0.5 AST 34 ALT 26 Alkaline Phosphatase 84 NT-Pro-B Natriuret Pep 2420 Total Protein 8.1 Albumin 4.7 Procalcitonin Lab Acknowledgement Test Added POC Troponin I 0.02 0.00 L 10/22/23 06:09 WBC 11.20 H RBC 4.48 Hgb 14.0 Hct 43.0 MCV 96 MCH 31 MCHC 33 RDW Coeff of [place] 12.8 Plt Count 228 Neut % (Auto) 66.9 Lymph % (Auto) 21.3 [place] % (Auto) 9.9 Eos % (Auto) 0.0 Baso % (Auto) 0.2 Neut # (Auto) 7.50 H Lymph # (Auto) 2.40 [place] # (Auto) 1.10 H Eos # (Auto) 0.00 Baso # (Auto) 0.00 Abs Immat Gran (auto) 0.20 Imm/Tot Granulo (auto) 1.7 VBG pH 7.344 VBG pCO2 67 H* VBG pO2 57.9 H VBG HCO3 36 H Sodium 136 Potassium 3.8 Chloride 96 Carbon Dioxide 32 Anion Gap 8 BUN 23 Creatinine 0.7 Estimated Creat Clear 49.08 Estimated GFR 97 Glucose 203 H Calcium 8.5 Magnesium 2.2 Total Bilirubin AST ALT Alkaline Phosphatase NT-Pro-B Natriuret Pep Total Protein Albumin Procalcitonin 0.03 Lab Acknowledgement POC Troponin I
[2023-10-22] MEDS: METHYLPREDNISOLONE SOD SUCC 62.5 MG/ML (125) 125 MG IVP ×2 (12:06→16:32)
[2023-10-22] MEDS: BARICITINIB 2 MG TAB 4 MG PO (12:06)
[2023-10-22] MEDS: ALPRAZolam 0.25 MG TABLET 0.5 MG PO ×2 (12:14→22:53)
--- NOTE | 2023-10-22 15:35 | PC.NURSE ---
Patient is plesant and cooperative. UP ad vamsi with High Flow NC on. Patient is SOB with any activity.. productive gunky cough throughout the day that hurts the patients ribs. Reported paina t 02/23
--- NOTE | 2023-10-22 15:35 | PC.NURSE ---
Patient is pleasant.. Patient is up ad vamsi with High Flow NC. SOB with any activity. Continuos pulse oximetry in place. No breakfast ordered but the patient ordered a large lunch, tolerated well. Voiding well. Adequate PO intake. Productive intermittent cough that causes the patient to have 7/10 rib pain. Relief with scheduled medication see OCT. Rescue inhaler is in her room for patient to use PRN for wheezing. Makes needs known. Call light within reach. Mackenzie DORADO BSN
[2023-10-22] MEDS: ALBUTEROL SULFATE 2.5 MG/3 ML VIAL.NEB NEB (16:17)
[2023-10-22] MEDS: INSULIN ASPART 100 UNIT/ML SUBCUT ×2 (17:25→21:55)
[2023-10-22] MEDS: QUETIAPINE 100 MG TABLET 200 MG PO (17:25)
[2023-10-22 17:38] LABS: C Reactive Protein* < 0.5 mg/dL (0.5-1.0)
[2023-10-22] MEDS: DOXYCYCLINE HYCLATE 100 MG PO (18:20)
[2023-10-22] MEDS: LIDOCAINE 5% PATCH 1 PATCH TRANSDERMA (21:54)
[2023-10-22] MEDS: PRAZOSIN HCL 1 MG CAPSULE 4 MG PO (21:57)
--- NOTE | 2023-10-22 23:50 | PC.NURSE ---
End of Shift: Pt AO throughout shift, ambulates in room independently. Productive cough, remains on high flow O2. Requested one PRN nebulizer tx, tolerated well, productive cough after neb. Pt reported rib pain. MD updated, lidcaine patch ordered and applied. Pt reported improvement. Pt became agitated when asking about her covid med that was brought from home by a friend. Paxlovid was found in pt's box. Charge and MD updated. Paxlovid ordered as non-formulary medication. Next dose is scheduled for 0900. Xanax PRN administered. O2 sats dropped to high 70's-low 80's during cough. Pt encouraged to breathe through nose when O2 saturations drop. O2 saturations recover well >88%. Inspiratory and expiratory wheezes noted. No BM.
[2023-10-23] VITALS (8 sets, daily range): BP systolic 104–145; BP diastolic 65–78; PULSE 81–95; RESP 20; TEMP 36.8–37; O2SAT 88–94
[2023-10-23] MEDS: METHYLPREDNISOLONE SOD SUCC 62.5 MG/ML (125) 125 MG IVP ×4 (00:37→16:34)
[2023-10-23] MEDS: SODIUM CHLORIDE 0.9 % (FLUSH) 10 ML SYRINGE 5 ML IVF ×4 (00:39→21:35)
[2023-10-23] MEDS: NON-FORMULARY MEDICATION 1 EACH PO (00:40)
[2023-10-23] MEDS: OMEPRAZOLE 20 MG CAPSULE DR 40 MG PO (06:01)
[2023-10-23] MEDS: LEVOTHYROXINE 50 MCG TABLET PO (06:01)
[2023-10-23 06:19] LABS: HCO3 VBG 34 mmol/L (21-28); PCO2 VBG 53 mmHG (40-50); PO2 VBG 45.6 mmHG (25-47)
[2023-10-23 06:32] LABS: Hematocrit 44.6 % (33.0-51.0); Hemoglobin* 14.5 gm/dL (12.0-16.0); Immature Granulocytes Pct Auto 0.6 %; Lymphocytes Percent Auto 3.9 % (20-44); Mean Corpuscular HGB Conc 33 gm/dL (32-36); Mean Corpuscular Hemoglobin 31 pg (26-34); Mean Corpuscular Volume 95 fL (80-100); Monocytes Percent Auto 2.8 % (0.0-11.0); Neutrophils Percent Auto 92.7 % (42.0-72.0); Platelet Count* 226 K/uL (140-440); RDW Coefficient of Variation % 12.4 % (11.5-15.5); Red Blood Count 4.71 m/uL (4.00-5.20); White Blood Count* 22.16 K/uL (4.50-11.00)
[2023-10-23 06:50] LABS: INR 0.92 (0.91-1.10); Prothrombin Time 12.9 Seconds
--- NOTE | 2023-10-23 07:00 | XR_ITS ---
Patient: RUEL VERAS Facility:?[facility] Patient ID:?[id number] Site Patient ID:?[id number]. Site :?[id number] Study:?XRay-Chest ap portable-10/23/2023 7:23:08 AM Ordering Physician:Viky Final Report: Indication: Chronic obstructive pulmonary disease, COVID Technique: Chest 1 view Comparison: Chest x-ray 10/21/2023 Findings/Impression: Cardiovascular and mediastinum: Heart size and vasculature are normal in caliber and appearance. Lungs and pleural space: No pleural effusion or pneumothorax. Mild pulmonary cephalization. Bones and soft tissues: Status post median sternotomy and cervicothoracic junction surgery. Old left 7th rib fracture. Dictated by Simone Pal MD @ 10/23/2023 7:29:17 AM Signed by:?Simone Pal MD @10/23/2023 7:29:17 AM (Electronic Signature)
[2023-10-23 07:11] LABS: Chloride* 96 mmol/L (96-114)
[2023-10-23 07:12] LABS: Albumin* 4.2 g/dL (3.3-5.0); Sodium* 133 mmol/L (135-149)
[2023-10-23 07:13] LABS: Potassium* 4.3 mmol/L (3.6-5.1)
[2023-10-23 07:15] LABS: Alanine Aminotransferase* 24 U/L (4-35); Alkaline Phosphatase* 73 U/L (40-150); Anion Gap 8 mEq/L (7-15); Aspartate Amino Transferase* 27 U/L (12-35); Bilirubin Direct* 0.4 mg/dL (0.0-0.5); Bilirubin Total* 0.4 mg/dL (0.1-1.5); Blood Urea Nitrogen* 23 mg/dL (7-30); Carbon Dioxide* 29 mmol/L (20-32); Creatinine* 0.5 mg/dL (0.5-1.5); Est. Creatinine Clearance* 49.08; Estimated Glomerular Filt Rate 105 ml/min; Total Protein* 7.1 g/dL (6.0-8.3)
[2023-10-23 07:16] LABS: Calcium* 9.4 mg/dL (8.4-10.6); Glucose* 288 mg/dL (60-115); Phosphorus* 2.1 mg/dL (2.5-4.5)
[2023-10-23 07:27] LABS: NT Pro B Type NatriureticPept* 1000 pg/mL; Troponin I* < 0.01 ng/mL (0.01-0.04)
[2023-10-23 07:28] LABS: C Reactive Protein* < 0.5 mg/dL (0.5-1.0)
[2023-10-23 07:35] LABS: Slide Review Reflex Yes
[2023-10-23 07:36] LABS: Slide Review Acceptable Review (Acceptable)
[2023-10-23 07:40] LABS: Procalcitonin* < 0.03 ng/mL (<0.50)
[2023-10-23] MEDS: INSULIN ASPART 100 UNIT/ML SUBCUT ×5 (08:14→21:52)
[2023-10-23] MEDS: Fluticasone-Umeclidin-Vilanter [Trelegy Ellipta] 100-62.5-25 mcg 1 EACH IH (08:15)
[2023-10-23] MEDS: ROSUVASTATIN CALCIUM 10 MG TABLET 20 MG PO (08:15)
[2023-10-23] MEDS: ASPIRIN 81 MG TAB.CHEW PO (08:16)
[2023-10-23] MEDS: CLOPIDOGREL 75 MG TABLET PO (08:16)
[2023-10-23] MEDS: buprenorphine HCL 2 MG TAB.SUBL SL ×4 (08:16→21:33)
[2023-10-23] MEDS: DOXYCYCLINE HYCLATE 100 MG PO ×2 (08:16→21:34)
--- NOTE | 2023-10-23 09:45 | RESP.RT ---
Patient on HFNC 20 lpm, 45%. BS exp wheezing on the right and loose cough. HR 81, Spo2 92-94%. Patient using Aerobika for airway clearance.
[2023-10-23] MEDS: BARICITINIB 2 MG TAB 4 MG PO (11:53)
--- NOTE | 2023-10-23 11:59 | PC.NURSE ---
Natalie campos [facility] called she is her care co. she can help with OT things, pt was asked and it is ok to up date natalie from [facility], she said yes
[2023-10-23] MEDS: ALPRAZolam 0.25 MG TABLET 0.5 MG PO (14:32)
--- NOTE | 2023-10-23 14:40 | P.IMPN_ITS ---
Progress Note: A&P Assessment and plan (1) Acute on chronic respiratory failure with hypoxia and hypercapnia: Problem details: - primarily related to COPD with superimposed COVID. - BARICITNIB, high flow oxygen, nebs, IV solumedrol, doxy. - appreciate RT insight and management; continue HFO2 Status: Acute (2) COVID: Problem details: + on 10/19, treated with 3 days of Paxlovid as an outpatient - given Remdesivir in ED on 10/21 - continue supplemental oxygen - Baricitnib started 10/22 Status: Acute (3) Chronic narcotic use: Problem details: - followed by pain clinic Status: Acute (4) SOCORRO (obstructive sleep apnea): Problem details: - uses CPAP at home Status: Acute (5) Hypotension: Problem details: - resolved Status: Acute Subjective Date Seen: 10/23/23 Interval history: Daily Progress Note - Hospital Medicine #: 3 CC: hypercapnic hypoxic resp failure, +COVID, +COPD excerbation OVERNIGHT UPDATES FROM STAFF & MED, LAB, IMAGING UPDATES -rstable and improved on high flow O2 overnight. hypercapnia improved. pH stable. -pt c/o of rib pain, insomnia -WBC now down trending 13-11-22 (probably from steroids). Hemoglobin stable. Platelet stable. -mild hyponatremia -procalcitonin is normal and CRP normal. Objective: less anxious. Vitals: see above Lungs: scattered wheeze/ronchi Cardiac: S1S2. Disposition/Potential discharge - Likely to return to previous living situation. Today I spent 50minutes seeing the patient, reviewing Expanse and EPIC notes/diagnostics, discussing the care plan with our care time that includes social work, PT/OT, pharmacy, RT, assisted and documenting my impressions and plan in the medical record. Exam Const: Vital Signs, click to edit/add: Vital Signs - 24 hr 10/22/23 15:00 10/22/23 15:00 10/22/23 15:00 Temperature Pulse Rate [Left P ulse Oximeter] 114 H Respiratory Rate 22 22 Blood Pressure [Le ft Arm] Pulse Oximetry 88 88 Oxygen Delivery Me thod High Flow Nasal Ca nnula Oxygen Flow Rate 20 Fraction of Inspir ed Oxygen 45 10/22/23 15:00 10/22/23 16:12 10/22/23 19:00 Temperature 99.1 F 98.9 F Pulse Rate [Left P ulse Oximeter] 114 H 91 Respiratory Rate 20 20 Blood Pressure [Le ft Arm] 107/65 117/65 Pulse Oximetry 89 88 Oxygen Delivery Me thod High Flow Nasal Ca nnula High Flow Nasal Ca nnula Oxygen Flow Rate 20 20 Fraction of Inspir ed Oxygen 45 45 45 10/22/23 20:00 10/23/23 00:30 10/23/23 00:30 Temperature Pulse Rate [Left P ulse Oximeter] 91 Respiratory Rate 20 Blood Pressure [Le ft Arm] Pulse Oximetry 90 Oxygen Delivery Me thod Oxygen Flow Rate Fraction of Inspir ed Oxygen 45 10/23/23 00:30 10/23/23 00:30 10/23/23 00:30 Temperature 98.2 F Pulse Rate [Left P ulse Oximeter] 91 Respiratory Rate 20 20 Blood Pressure [Le ft Arm] 104/68 Pulse Oximetry 90 90 Oxygen Delivery Me thod High Flow Nasal Ca nnula High Flow Nasal Ca nnula Oxygen Flow Rate 20 20 Fraction of Inspir ed Oxygen 45 45 45 10/23/23 03:15 10/23/23 03:15 10/23/23 07:00 Temperature Pulse Rate [Left P ulse Oximeter] 91 Respiratory Rate 20 Blood Pressure [Le ft Arm] 145/73 H Pulse Oximetry 88 94 Oxygen Delivery Me thod High Flow Nasal Ca nnula Oxygen Flow Rate 20 Fraction of Inspir ed Oxygen 45 45 10/23/23 07:00 10/23/23 07:00 10/23/23 08:52 Temperature 98.6 F Pulse Rate [Left P ulse Oximeter] 84 Respiratory Rate 20 20 Blood Pressure [Le ft Arm] 140/69 H Pulse Oximetry 94 94 Oxygen Delivery Me thod High Flow Nasal Ca nnula High Flow Nasal Ca nnula Oxygen Flow Rate 20 20 Fraction of Inspir ed Oxygen 45 45 45 10/23/23 09:42 10/23/23 11:00 10/23/23 11:00 Temperature 98.5 F Pulse Rate [Left P ulse Oximeter] 81 Respiratory Rate 20 Blood Pressure [Le ft Arm] 141/78 H Pulse Oximetry 92 Oxygen Delivery Me thod High Flow Nasal Ca nnula High Flow Nasal Ca nnula Oxygen Flow Rate 20 20 Fraction of Inspir ed Oxygen 45 45 45 Labs Labs: Laboratory Results - last 24 hr 10/22/23 10/22/23 10/23/23 06:09 17:03 05:42 WBC 22.16 H RBC 4.71 Hgb 14.5 Hct 44.6 MCV 95 MCH 31 MCHC 33 RDW Coeff of Renetta 12.4 Plt Count 226 Neut % (Auto) 92.7 H Lymph % (Auto) 3.9 L [place] % (Auto) 2.8 Eos % (Auto) 0.0 Baso % (Auto) 0.0 Neut # (Auto) 20.50 H Lymph # (Auto) 0.90 [place] # (Auto) 0.60 Eos # (Auto) 0.00 Baso # (Auto) 0.00 Abs Immat Gran (auto) 0.10 Imm/Tot Granulo (auto) 0.6 Diff Slide Review Acceptable Review INR 0.92 VBG pH 7.420 VBG pCO2 53 H VBG pO2 45.6 VBG HCO3 34 H Sodium 133 L Potassium 4.3 Chloride 96 Carbon Dioxide 29 Anion Gap 8 BUN 23 Creatinine 0.5 Estimated Creat Clear 49.08 Estimated GFR 105 Glucose 288 H Calcium 9.4 Phosphorus 2.1 L Total Bilirubin 0.4 Direct Bilirubin 0.4 AST 27 ALT 24 Alkaline Phosphatase 73 Troponin I < 0.01 L C-Reactive Protein < 0.5 L < 0.5 L NT-Pro-B Natriuret Pep 1000 Total Protein 7.1 Albumin 4.2 Procalcitonin < 0.03 L Lab Acknowledgement Test Added
[2023-10-23] MEDS: KETOROLAC 30 MG/ML inj IVP ×2 (16:34→21:34)
--- NOTE | 2023-10-23 19:32 | PC.NURSE ---
End of shift [id number] - Pt alert, oriented x 4, cooperative. Pt initially reported being very fatigued and reported not sleeping well previous night. Up independently in room, tolerating high flow nasal cannula, regular diet, fluids. Pt reported pain in ribs from coughing, new MD orders given for pain relief. Pt reported feeling better and noted an improved appetite and increased energy. Pt observed to move around room, cleaning up personal items, and straightening out room. Course, productive coughing noted from pt, encouraged to spit out any sputum that comes up. Blood glucose readings increased throughout shift despite insulin given per sliding scale. MD notified, one time order of additional insulin given and some home meds restarted per MD. Pt appears to be resting comfortably at end of shift.
[2023-10-23] MEDS: GLIMEPIRIDE 1 MG TABLET 2 MG PO (21:33)
[2023-10-23] MEDS: PRAZOSIN HCL 1 MG CAPSULE 4 MG PO (21:34)
[2023-10-23] MEDS: ZOLPIDEM 5 MG TABLET PO (21:34)
[2023-10-23] MEDS: IPRAT-ALBUT 0.5-2.5 MG/3 ML NEB 1 NEB IH (21:35)
[2023-10-24] MEDS: METHYLPREDNISOLONE SOD SUCC 62.5 MG/ML (125) 125 MG IVP ×2 (00:28→05:16)
[2023-10-24] MEDS: KETOROLAC 30 MG/ML inj IVP ×4 (02:54→20:15)
[2023-10-24 03:00] VITALS: BP 138/76; PULSE 82; RESP 20; TEMP 36.6; O2SAT 92
--- NOTE | 2023-10-24 05:50 | PC.NURSE ---
Shift note: Pt has been on Hyflo throughout the shift. Labored respiration with wheezing sound. Pt had adequate sleep. At 2100, blood sugar level was 406 MD informed and asked to give the ordered 6 unit of insulin per sliding scale. Pt is independent in room. No fever recorded. Pt appeared weak.
[2023-10-24] MEDS: OMEPRAZOLE 20 MG CAPSULE DR 40 MG PO (06:34)
[2023-10-24] MEDS: LEVOTHYROXINE 50 MCG TABLET PO (06:35)
[2023-10-24 06:52] LABS: HCO3 VBG 34 mmol/L (21-28); PCO2 VBG 60 mmHG (40-50); PO2 VBG 38.9 mmHG (25-47); pH VBG 7.368 (7.32-7.43)
[2023-10-24 07:00] VITALS: BP 144/78; PULSE 68; RESP 18; TEMP 36; O2SAT 93; O2SAT 95
[2023-10-24 07:03] LABS: Hematocrit 46.1 % (33.0-51.0); Hemoglobin* 14.8 gm/dL (12.0-16.0); Immature Granulocytes Pct Auto 0.5 %; Lymphocytes Percent Auto 2.5 % (20-44); Mean Corpuscular HGB Conc 32 gm/dL (32-36); Mean Corpuscular Hemoglobin 31 pg (26-34); Mean Corpuscular Volume 95 fL (80-100); Platelet Count* 263 K/uL (140-440); RDW Coefficient of Variation % 12.5 % (11.5-15.5); Red Blood Count 4.84 m/uL (4.00-5.20)
[2023-10-24 07:12] LABS: Slide Review Reflex No
[2023-10-24 07:18] LABS: Chloride* 96 mmol/L (96-114); Potassium* 3.9 mmol/L (3.6-5.1); Sodium* 135 mmol/L (135-149)
[2023-10-24 07:21] LABS: Anion Gap 6 mEq/L (7-15); Blood Urea Nitrogen* 29 mg/dL (7-30); Carbon Dioxide* 33 mmol/L (20-32); Creatinine* 0.7 mg/dL (0.5-1.5); Est. Creatinine Clearance* 49.08; Estimated Glomerular Filt Rate 97 ml/min
[2023-10-24 07:22] LABS: Calcium* 9.3 mg/dL (8.4-10.6)
[2023-10-24 07:47] LABS: Glucose* 230 mg/dL (60-115)
[2023-10-24 08:14] LABS: Hemoglobin A1C* 7.8 % (0-5.6)
[2023-10-24] MEDS: INSULIN ASPART 100 UNIT/ML SUBCUT ×4 (08:31→20:20)
[2023-10-24] MEDS: Fluticasone-Umeclidin-Vilanter [Trelegy Ellipta] 100-62.5-25 mcg 1 EACH IH (08:33)
[2023-10-24] MEDS: buprenorphine HCL 2 MG TAB.SUBL SL ×4 (08:33→20:14)
[2023-10-24] MEDS: buPROPion XL 150 MG TABLET PO (08:33)
[2023-10-24] MEDS: VENLAFAXINE ER 75 MG CAPSULE 225 MG PO (08:33)
[2023-10-24] MEDS: METOPROLOL SUCCINATE (XL) 50 MG TAB PO (08:34)
[2023-10-24] MEDS: GLIMEPIRIDE 1 MG TABLET 2 MG PO ×2 (08:34→20:15)
[2023-10-24] MEDS: CLOPIDOGREL 75 MG TABLET PO (08:34)
[2023-10-24] MEDS: DOXYCYCLINE HYCLATE 100 MG PO ×2 (08:34→20:15)
[2023-10-24] MEDS: EMPAGLIFLOZIN 10 MG TABLET 25 MG PO (08:34)
[2023-10-24] MEDS: ASPIRIN 81 MG TAB.CHEW PO (08:34)
[2023-10-24] MEDS: SODIUM CHLORIDE 0.9 % (FLUSH) 10 ML SYRINGE 5 ML IVF ×2 (08:35→20:13)
[2023-10-24] MEDS: ROSUVASTATIN CALCIUM 10 MG TABLET 20 MG PO (08:35)
--- NOTE | 2023-10-24 10:14 | PM.IMPN1 ---
Progress Note: A&P Assessment and plan (1) Acute on chronic respiratory failure with hypoxia and hypercapnia: Problem details: - primarily related to COPD with superimposed COVID. - BARICITNIB, high flow oxygen, nebs, IV solumedrol (transitioning to PO prednisone ), doxy. - appreciate RT insight and management; continue HFO2 and wean Status: Acute (2) COVID: Problem details: + on 10/19, treated with 3 days of Paxlovid as an outpatient - given Remdesivir in ED on 10/21 - continue supplemental oxygen - Baricitnib started 10/22 Status: Acute (3) Chronic narcotic use: Problem details: - followed by pain clinic Status: Acute (4) SOCORRO (obstructive sleep apnea): Problem details: - uses CPAP at home Status: Acute (5) Hypotension: Problem details: - resolved Status: Acute Subjective Date Seen: 10/24/23 Interval history: Daily Progress Note - Hospital Medicine Day #: 4 CC: hypercapnic hypoxic resp failure, +COVID, +COPD excerbation OVERNIGHT UPDATES FROM STAFF & MED, LAB, IMAGING UPDATES -emotional; sick of being sick -stable and improved on high flow O2 overnight. hypercapnia improved. pH stable. -pt c/o of rib pain, insomnia -WBC now down trending 13-11-22-30 (probably from steroids). Hemoglobin stable. Platelet stable. -mild hyponatremia resolved -pH stable. mild hypercapnia -procalcitonin is normal and CRP normal. -reviewed CXR from yesterday and admission CT chest Objective: less anxious. Vitals: see above Lungs: scattered wheeze/ronchi Cardiac: S1S2. Disposition/Potential discharge - Likely to return to previous living situation. Today I spent 50minutes seeing the patient, reviewing Expanse and EPIC notes/diagnostics, discussing the care plan with our care time that includes social work, PT/OT, pharmacy, RT, jail and documenting my impressions and plan in the medical record. Exam Const: Vital Signs, click to edit/add: Vital Signs - 24 hr 10/23/23 11:00 10/23/23 11:00 10/23/23 15:00 Temperature 98.5 F Pulse Rate [Left P ulse Oximeter] 81 Respiratory Rate 20 Blood Pressure [Le ft Arm] 141/78 H Pulse Oximetry 92 Oxygen Delivery Me thod High Flow Nasal Ca nnula Oxygen Flow Rate 20 Fraction of Inspir ed Oxygen 45 45 45 10/23/23 15:00 10/23/23 15:00 10/23/23 19:00 Temperature Pulse Rate [Left P ulse Oximeter] Respiratory Rate 20 Blood Pressure [Le ft Arm] Pulse Oximetry 92 92 Oxygen Delivery Me thod High Flow Nasal Ca nnula Oxygen Flow Rate 20 Fraction of Inspir ed Oxygen 45 45 10/23/23 19:00 10/23/23 23:00 10/23/23 23:00 Temperature 98.5 F Pulse Rate [Left P ulse Oximeter] 95 Respiratory Rate 20 Blood Pressure [Le ft Arm] 139/65 Pulse Oximetry 90 93 Oxygen Delivery Me thod High Flow Nasal Ca nnula Oxygen Flow Rate 20 Fraction of Inspir ed Oxygen 45 45 10/23/23 23:00 10/23/23 23:00 10/23/23 23:00 Temperature 98.5 F Pulse Rate [Left P ulse Oximeter] 86 86 Respiratory Rate 20 20 20 Blood Pressure [Le ft Arm] 138/67 Pulse Oximetry 93 93 Oxygen Delivery Me thod High Flow Nasal Ca nnula High Flow Nasal Ca nnula Oxygen Flow Rate 20 20 Fraction of Inspir ed Oxygen 45 45 10/24/23 03:00 10/24/23 03:00 10/24/23 07:00 Temperature 98 F Pulse Rate [Left P ulse Oximeter] 82 Respiratory Rate 20 Blood Pressure [Le ft Arm] 138/76 Pulse Oximetry 92 Oxygen Delivery Me thod High Flow Nasal Ca nnula Oxygen Flow Rate 20 Fraction of Inspir ed Oxygen 45 45 45 10/24/23 07:00 10/24/23 07:00 10/24/23 07:00 Temperature 96.8 F L Pulse Rate [Left P ulse Oximeter] 68 Respiratory Rate 18 18 Blood Pressure [Le ft Arm] 144/78 H Pulse Oximetry 93 93 93 Oxygen Delivery Me thod High Flow Nasal Ca nnula High Flow Nasal Ca nnula Oxygen Flow Rate 20 20 Fraction of Inspir ed Oxygen 45 45 10/24/23 10:09 Temperature Pulse Rate [Left P ulse Oximeter] Respiratory Rate Blood Pressure [Le ft Arm] Pulse Oximetry Oxygen Delivery Me thod Oxygen Flow Rate 20 Fraction of Inspir ed Oxygen 35 Labs Labs: Laboratory Results - last 24 hr 10/24/23 06:44 WBC 30.70 H* RBC 4.84 Hgb 14.8 Hct 46.1 MCV 95 MCH 31 MCHC 32 RDW Coeff of Renetta 12.5 Plt Count 263 Neut % (Auto) 95.0 H Lymph % (Auto) 2.5 L [place] % (Auto) 2.0 Eos % (Auto) 0.0 Baso % (Auto) 0.0 Neut # (Auto) 29.20 H Lymph # (Auto) 0.80 L [place] # (Auto) 0.60 Eos # (Auto) 0.00 Baso # (Auto) 0.00 Abs Immat Gran (auto) 0.20 Imm/Tot Granulo (auto) 0.5 VBG pH 7.368 VBG pCO2 60 H VBG pO2 38.9 VBG HCO3 34 H Sodium 135 Potassium 3.9 Chloride 96 Carbon Dioxide 33 H Anion Gap 6 L BUN 29 Creatinine 0.7 Estimated Creat Clear 49.08 Estimated GFR 97 Glucose 230 H Hemoglobin A1c 7.8 H Calcium 9.3 Lab Acknowledgement Test Added
[2023-10-24 11:00] VITALS: PULSE 77; RESP 20; TEMP 37.1; O2SAT 88
[2023-10-24] MEDS: predniSONE 20 MG TABLET 60 MG PO (11:33)
[2023-10-24] MEDS: BARICITINIB 2 MG TAB 4 MG PO (11:33)
[2023-10-24 15:00] VITALS: BP 148/77; PULSE 89; RESP 20; TEMP 37.2; O2SAT 88; O2SAT 89
[2023-10-24] MEDS: LORazepam 0.5 MG TABLET PO ×2 (15:47→20:15)
--- NOTE | 2023-10-24 18:51 | PC.NURSE ---
End of shift: The patient is pleasant and very talkative throughout the day. HF NC remains in place @ 30% fiO2, 20 L and 36 degrees C. The patient refused placement of SCDS.. she is up and ambulating ad vamsi. The patient reports being very hungry.. and wonders why her blood sugars are so high.. I let the patient know that this can happen from the steroids causing hyperglycemia. Later this afternoon the patient's anxiety was increased...talked her through an attack... and was relieved with PRN ativan. The patient reported moderate pain with coughing attacks in her ribs. Scheduled tordal given. The patient reported having a BM today. IV in R forearm. Mackenzie DORADO BSN
[2023-10-24 19:00] VITALS: BP 161/81; PULSE 84; RESP 20; TEMP 36.9; O2SAT 91
[2023-10-24] MEDS: PRAZOSIN HCL 1 MG CAPSULE 4 MG PO (20:21)
[2023-10-24] MEDS: ALBUTEROL INHALER 2 PUFF IH (20:23)
[2023-10-24 23:00] VITALS: BP 126/80; PULSE 72; RESP 22; TEMP 37.3; O2SAT 88; O2SAT 98
[2023-10-25 03:00] VITALS: BP 127/72; PULSE 65; RESP 10; TEMP 36.8; O2SAT 89
[2023-10-25] MEDS: LEVOTHYROXINE 50 MCG TABLET PO (06:15)
[2023-10-25] MEDS: OMEPRAZOLE 20 MG CAPSULE DR 40 MG PO (06:15)
[2023-10-25] MEDS: ALBUTEROL INHALER 2 PUFF IH ×3 (06:18→18:47)
--- NOTE | 2023-10-25 06:43 | PC.NURSE ---
End of shift : Pt A&O and independent in her room. Low-grade fever, T-max 99.1. Pt required an increase in her HFNC settings d/t O2 being 83-84% while asleep. She had very deep breathing with apneic periods. Current settings 25 > 35 > 36 and patient maintaining between 85-88%. Pt has the tendency to remove the pulse oximeter from her finger and the NC from her nose; O2 would quickly dip down to 79-81% on RA. Pt received PRN Ativan before bed @ 2044 as a sleep aide. HS blood sugar: 310; received 4 units Novolog. Pt c/o intermittent 01/02 ribcage pain r/t coughing- utilized albuterol inhaler x2. PIV in right FA is SL and C/D/I. ?
[2023-10-25 07:00] VITALS: BP 131/78; PULSE 65; RESP 22; TEMP 36.8; O2SAT 88; O2SAT 89
[2023-10-25 07:10] LABS: HCO3 VBG 34 mmol/L (21-28); PO2 VBG 42.5 mmHG (25-47); pH VBG 7.333 (7.32-7.43)
[2023-10-25 07:13] LABS: PCO2 VBG 65 mmHG (40-50)
[2023-10-25 07:20] LABS: Hemoglobin* 14.5 gm/dL (12.0-16.0); Red Blood Count 4.72 m/uL (4.00-5.20)
[2023-10-25 07:21] LABS: Mean Corpuscular HGB Conc 32 gm/dL (32-36); Mean Corpuscular Hemoglobin 31 pg (26-34); Mean Corpuscular Volume 95 fL (80-100); Platelet Count* 268 K/uL (140-440)
[2023-10-25 07:42] LABS: Chloride* 95 mmol/L (96-114); Potassium* 3.8 mmol/L (3.6-5.1); Sodium* 132 mmol/L (135-149)
[2023-10-25 07:44] LABS: Creatinine* 0.6 mg/dL (0.5-1.5); Est. Creatinine Clearance* 49.08; Estimated Glomerular Filt Rate 100 ml/min
[2023-10-25 07:45] LABS: Anion Gap 8 mEq/L (7-15); Blood Urea Nitrogen* 31 mg/dL (7-30); Calcium* 8.6 mg/dL (8.4-10.6); Carbon Dioxide* 29 mmol/L (20-32); Glucose* 186 mg/dL (60-115)
--- NOTE | 2023-10-25 07:52 | XR_ITS ---
Patient: RUEL VERAS Facility:?[facility] Patient ID:?[id number] Site Patient ID:?[id number]. Site :?[id number] Study:?XRay-Chest 1V CHEST-10/25/2023 8:30:41 AM Ordering Physician:?DR. IRVIN Final Report: Indication: Hypoxia Comparison: Single-view chest October 15, 2023. Technique: Single AP view chest Findings: There is hyperinflation and chronic interstitial change. There are mildly increased interstitial markings likely representing pulmonary edema. There is minimal basilar atelectasis. There is no pneumothorax or pleural effusion. The cardiac silhouette is stable with median sternotomy wires. The bony thorax is grossly intact. Impression: Increasing interstitial markings likely representing mild pulmonary edema. Dictated by Robert Moura MD @ 10/25/2023 8:42:02 AM Signed by:?Robert Moura MD @10/25/2023 8:42:02 AM (Electronic Signature)
[2023-10-25 08:08] LABS: Slide Review Reflex Yes
[2023-10-25 08:11] LABS: Slide Review Acceptable Review (Acceptable)
[2023-10-25] MEDS: METOPROLOL SUCCINATE (XL) 50 MG TAB PO (09:49)
[2023-10-25] MEDS: buprenorphine HCL 2 MG TAB.SUBL SL ×3 (09:49→20:19)
[2023-10-25] MEDS: buPROPion XL 150 MG TABLET PO (09:49)
[2023-10-25] MEDS: GLIMEPIRIDE 1 MG TABLET 2 MG PO ×2 (09:51→20:19)
[2023-10-25] MEDS: EMPAGLIFLOZIN 10 MG TABLET 25 MG PO (09:52)
[2023-10-25] MEDS: ROSUVASTATIN CALCIUM 10 MG TABLET 20 MG PO (09:54)
[2023-10-25] MEDS: CLOPIDOGREL 75 MG TABLET PO (09:56)
[2023-10-25] MEDS: predniSONE 20 MG TABLET 40 MG PO (09:57)
[2023-10-25] MEDS: DOXYCYCLINE HYCLATE 100 MG PO ×2 (09:59→20:18)
[2023-10-25] MEDS: SODIUM CHLORIDE 0.9 % (FLUSH) 10 ML SYRINGE 5 ML IVF ×2 (10:00→20:19)
[2023-10-25] MEDS: ASPIRIN 81 MG TAB.CHEW PO (10:01)
[2023-10-25] MEDS: INSULIN ASPART 100 UNIT/ML SUBCUT ×4 (10:02→20:35)
[2023-10-25 11:00] VITALS: BP 161/72; PULSE 65; RESP 22; TEMP 36.6; O2SAT 90; O2SAT 92
[2023-10-25] MEDS: BARICITINIB 2 MG TAB 4 MG PO (12:53)
[2023-10-25] MEDS: Fluticasone-Umeclidin-Vilanter [Trelegy Ellipta] 100-62.5-25 mcg 1 EACH IH (12:54)
--- NOTE | 2023-10-25 13:07 | PM.IMPN1 ---
Progress Note: A&P Assessment and plan (1) Acute on chronic respiratory failure with hypoxia and hypercapnia: Problem details: - primarily related to COPD with superimposed COVID. - BARICITNIB, high flow oxygen, nebs, IV solumedrol (transitioning to PO prednisone ), doxy. - appreciate RT insight and management; continue HFO2 and wean - adding single dose of lasix afternoon of 10/24 Status: Acute (2) COVID: Problem details: + on 10/19, treated with 3 days of Paxlovid as an outpatient - given Remdesivir in ED on 10/21 - continue supplemental oxygen - Baricitnib started 10/22 Status: Acute (3) Chronic narcotic use: Problem details: - followed by pain clinic Status: Acute (4) SOCORRO (obstructive sleep apnea): Problem details: - uses CPAP at home Status: Acute (5) Hypotension: Problem details: - resolved Status: Acute Subjective Date Seen: 10/25/23 Interval history: Daily Progress Note - Hospital Medicine Day #: 5 CC: hypercapnic hypoxic resp failure, +COVID, +COPD excerbation OVERNIGHT UPDATES FROM STAFF & MED, LAB, IMAGING UPDATES -emotional; sick of being sick. tearful. needs lots of reassurance. -stable; pH normal with stable hypercapnia. continues on on high flow NCO2. 30L, 40%. -pt c/o of rib pain, insomnia, anxiety -WBC elevated from presumbably steroids. -mild hyponatremia -pH stable. mild-moderate hypercapnia -procalcitonin is normal and CRP normal. -reviewed CXR 10/24 - some increased pulmonary edema. Objective: less anxious. Vitals: see above Lungs: scattered wheeze/ronchi Cardiac: S1S2. Disposition/Potential discharge - Likely to return to previous living situation. Today I spent 50minutes seeing the patient, reviewing Expanse and EPIC notes/diagnostics, discussing the care plan with our care time that includes social work, PT/OT, pharmacy, RT, care home and documenting my impressions and plan in the medical record. Exam Const: Vital Signs, click to edit/add: Vital Signs - 24 hr 10/24/23 15:00 10/24/23 15:00 10/24/23 15:00 Temperature 98.9 F Pulse Rate [Left P ulse Oximeter] 89 Respiratory Rate 20 Blood Pressure [Le ft Arm] 148/77 H Blood Pressure [Ri ght Arm] Pulse Oximetry 88 89 Oxygen Delivery Me thod High Flow Nasal Ca nnula Oxygen Flow Rate 20 Fraction of Inspir ed Oxygen 25 30 10/24/23 15:00 10/24/23 19:00 10/24/23 19:00 Temperature 98.5 F Pulse Rate [Left P ulse Oximeter] 84 Respiratory Rate 20 20 Blood Pressure [Le ft Arm] Blood Pressure [Ri ght Arm] 161/81 H Pulse Oximetry 88 91 Oxygen Delivery Me thod High Flow Nasal Ca nnula High Flow Nasal Ca nnula Oxygen Flow Rate 20 20 Fraction of Inspir ed Oxygen 30 30 30 10/24/23 23:00 10/24/23 23:00 10/24/23 23:00 Temperature Pulse Rate [Left P ulse Oximeter] 72 Respiratory Rate 22 Blood Pressure [Le ft Arm] Blood Pressure [Ri ght Arm] Pulse Oximetry 88 Oxygen Delivery Me thod Oxygen Flow Rate Fraction of Inspir ed Oxygen 30 10/24/23 23:00 10/24/23 23:00 10/25/23 03:00 Temperature 99.1 F Pulse Rate [Left P ulse Oximeter] 72 Respiratory Rate 22 22 Blood Pressure [Le ft Arm] 126/80 Blood Pressure [Ri ght Arm] Pulse Oximetry 88 98 Oxygen Delivery Me thod High Flow Nasal Ca nnula High Flow Nasal Ca nnula Oxygen Flow Rate 20 20 Fraction of Inspir ed Oxygen 30 30 35 10/25/23 03:00 10/25/23 07:00 10/25/23 07:00 Temperature 98.3 F Pulse Rate [Left P ulse Oximeter] 65 Respiratory Rate 10 L 22 Blood Pressure [Le ft Arm] 127/72 Blood Pressure [Ri ght Arm] Pulse Oximetry 89 89 89 Oxygen Delivery Me thod High Flow Nasal Ca nnula High Flow Nasal Ca nnula Oxygen Flow Rate 25 25 Fraction of Inspir ed Oxygen 35 45 10/25/23 09:39 Temperature Pulse Rate [Left P ulse Oximeter] Respiratory Rate Blood Pressure [Le ft Arm] Blood Pressure [Ri ght Arm] Pulse Oximetry Oxygen Delivery Me thod Oxygen Flow Rate 30 Fraction of Inspir ed Oxygen 40 Labs Labs: Laboratory Results - last 24 hr 10/25/23 07:05 WBC 31.40 H* RBC 4.72 Hgb 14.5 Hct 45.0 MCV 95 MCH 31 MCHC 32 Plt Count 268 Diff Slide Review Acceptable Review VBG pH 7.333 VBG pCO2 65 H* VBG pO2 42.5 VBG HCO3 34 H Sodium 132 L Potassium 3.8 Chloride 95 L Carbon Dioxide 29 Anion Gap 8 BUN 31 H Creatinine 0.6 Estimated Creat Clear 49.08 Estimated GFR 100 Glucose 186 H Calcium 8.6
[2023-10-25] MEDS: OXYCODONE 5 MG TABLET PO ×2 (13:11→17:28)
[2023-10-25] MEDS: ALBUTEROL SULFATE 2.5 MG/3 ML VIAL.NEB NEB (13:12)
[2023-10-25 15:00] VITALS: BP 121/65; PULSE 66; RESP 24; TEMP 36.8; O2SAT 88; O2SAT 90
[2023-10-25] MEDS: FUROSEMIDE 10 MG/ML inj 40 MG IVP (16:10)
[2023-10-25 17:05] LABS: HCO3 VBG 34 mmol/L (21-28); PCO2 VBG 59 mmHG (40-50); PO2 VBG 44.7 mmHG (25-47); pH VBG 7.363 (7.32-7.43)
[2023-10-25] MEDS: guaiFENesin 100 MG/ML CUP PO ×2 (17:28→22:55)
[2023-10-25 17:36] LABS: Troponin I* 0.01 ng/mL (0.01-0.04)
--- NOTE | 2023-10-25 18:51 | PC.NURSE ---
shift note: pt up for meals and turned frequently side to side in bed. pt had moderate amount of thick yellow phlegm this a.m and has loud barking cough. pt medicated for lt flank pain with frequent cough with relief. pt had guaifenesin pm this kelsi for cough. pt had personal albuterol inhaler x2 and albuterol neb this a.m to assist with phlegm. LS with rt mid/lower posterior groans and lt dim throughout. pt remains on HFNC with sats 88-90%. IV patent
[2023-10-25 20:15] VITALS: BP 143/75; PULSE 71; RESP 22; TEMP 37.1; O2SAT 89
[2023-10-25] MEDS: PRAZOSIN HCL 1 MG CAPSULE 4 MG PO (20:19)
[2023-10-25] MEDS: ACETAMINOPHEN 325 MG TABLET 975 MG PO (22:55)
[2023-10-25 23:00] VITALS: BP 106/63; PULSE 58; RESP 20; RESP 22; TEMP 36.7; O2SAT 91
[2023-10-26] VITALS (9 sets, daily range): BP systolic 125–150; BP diastolic 69–79; PULSE 63–79; RESP 18–20; TEMP 36.7–37.1; O2SAT 88–95
[2023-10-26] MEDS: IPRAT-ALBUT 0.5-2.5 MG/3 ML NEB 1 NEB IH ×5 (04:15→21:03)
[2023-10-26] MEDS: OXYCODONE 5 MG TABLET PO (04:15)
[2023-10-26] MEDS: ACETAMINOPHEN 325 MG TABLET 975 MG PO ×3 (06:03→21:05)
[2023-10-26] MEDS: LEVOTHYROXINE 50 MCG TABLET PO (06:03)
[2023-10-26] MEDS: OMEPRAZOLE 20 MG CAPSULE DR 40 MG PO (06:03)
[2023-10-26 06:56] LABS: Hematocrit 45.3 % (33.0-51.0); Hemoglobin* 14.5 gm/dL (12.0-16.0); Mean Corpuscular HGB Conc 32 gm/dL (32-36); Mean Corpuscular Hemoglobin 30 pg (26-34); Mean Corpuscular Volume 95 fL (80-100); Platelet Count* 256 K/uL (140-440); Red Blood Count 4.77 m/uL (4.00-5.20); White Blood Count* 22.07 K/uL (4.50-11.00)
--- NOTE | 2023-10-26 06:59 | PC.NURSE ---
19-07: pleasant and cooperative. Productive cough, was able to expel thick yellow sputum. PRN DuoNeb given. Pt c/o chest pain from coughing and generalized aches, prn Tylenol and oxy given, offered relief. Titrated HFNC to 30/30.
[2023-10-26 07:15] LABS: Slide Review Reflex No
[2023-10-26 07:18] LABS: Chloride* 93 mmol/L (96-114); Potassium* 3.5 mmol/L (3.6-5.1); Sodium* 133 mmol/L (135-149)
[2023-10-26 07:21] LABS: Anion Gap 6 mEq/L (7-15); Blood Urea Nitrogen* 31 mg/dL (7-30); Carbon Dioxide* 34 mmol/L (20-32); Creatinine* 0.6 mg/dL (0.5-1.5); Est. Creatinine Clearance* 49.08; Estimated Glomerular Filt Rate 100 ml/min
[2023-10-26 07:22] LABS: Calcium* 8.4 mg/dL (8.4-10.6); Glucose* 122 mg/dL (60-115)
[2023-10-26 08:22] LABS: HCO3 VBG 40 mmol/L (21-28); PCO2 VBG 59 mmHG (40-50); PO2 VBG 49.3 mmHG (25-47); pH VBG 7.431 (7.32-7.43)
[2023-10-26] MEDS: Fluticasone-Umeclidin-Vilanter [Trelegy Ellipta] 100-62.5-25 mcg 1 EACH IH (09:53)
[2023-10-26] MEDS: buprenorphine HCL 2 MG TAB.SUBL SL ×2 (09:54→21:04)
[2023-10-26] MEDS: SODIUM CHLORIDE 0.9 % (FLUSH) 10 ML SYRINGE 5 ML IVF ×2 (09:56→21:24)
[2023-10-26] MEDS: ROSUVASTATIN CALCIUM 10 MG TABLET 20 MG PO (09:56)
[2023-10-26] MEDS: EMPAGLIFLOZIN 10 MG TABLET 25 MG PO (09:57)
[2023-10-26] MEDS: GLIMEPIRIDE 1 MG TABLET 2 MG PO (09:59)
[2023-10-26] MEDS: CLOPIDOGREL 75 MG TABLET PO (10:01)
[2023-10-26] MEDS: ASPIRIN 81 MG TAB.CHEW PO (10:01)
[2023-10-26] MEDS: METOPROLOL SUCCINATE (XL) 50 MG TAB PO (10:02)
[2023-10-26] MEDS: DOXYCYCLINE HYCLATE 100 MG PO ×2 (10:02→21:06)
[2023-10-26] MEDS: predniSONE 20 MG TABLET 40 MG PO (10:09)
[2023-10-26] MEDS: BARICITINIB 2 MG TAB 4 MG PO (12:47)
[2023-10-26] MEDS: POTASSIUM CHLORIDE 10 MEQ CAPSULE ER 20 MEQ PO (14:41)
[2023-10-26] MEDS: TORSEMIDE 20 MG TABLET PO (14:41)
[2023-10-26] MEDS: INSULIN ASPART 100 UNIT/ML SUBCUT ×3 (14:42→21:06)
[2023-10-26] MEDS: SENNOSIDES/DOCUSATE TABLET 2 TAB PO ×2 (14:49→21:03)
--- NOTE | 2023-10-26 16:27 | RESP.RT ---
Patient placed on Home CPAP with 3 Lpm O2 bleed for trial. May return to HFNC with SaO2 <88%, goal SaO2 88-92%.
--- NOTE | 2023-10-26 17:20 | P.IMPN_ITS ---
Progress Note: A&P Assessment and plan (1) Acute on chronic respiratory failure with hypoxia and hypercapnia: Problem details: Underlying severe COPD, SOCORRO and recent COVID infection. Work to wean off of high-flow oxygen on to nasal cannula oxygen which she has at home and home CPAP. C Status: Acute (2) COVID: Problem details: + on 10/19, treated with 3 days of Paxlovid as an outpatient. Also prednisone - Baricitnib started 10/22 Status: Acute (3) Chronic narcotic use: Problem details: - followed by pain clinic Status: Acute (4) SOCORRO (obstructive sleep apnea): Problem details: - uses CPAP at home. Restart CPAP when she tolerates being off high-flow oxygen Status: Acute (5) Hypotension: Problem details: - resolved Status: Acute (6) Noncompliance with medication regimen: Problem details: Patient reports not taking a number of the medications that are listed in her medical record. She needs to discussion with her primary care doctor about what medicines she should be taking and is willing to take. Status: Acute Plan Continue in hospital for treatment with high-flow oxygen, treatment for COVID, treatment for COPD. Anticipate discharge to home when able to wean off of high- flow oxygen and tolerate oxygen via nasal cannula and possibly we with CPAP. Total time spent is 60 minutes with 45 minutes in coordination of care, medication review, discussing respiratory and oxygen support. Subjective Date Seen: 10/26/23 Interval history: 63-year-old admitted to the hospital with cough and dyspnea. She 1st became ill with COVID around 10/16/2023 and diagnosed with a positive COVID test on 10/18/2023. She was started on Paxlovid and steroids for her COVID and COPD exacerbation. She also had a fever at home. She got progressively worse and came to the hospital and was admitted on October 22 for hypoxic and hypercapnic respiratory failure. At that time she was started on Baricitinib and continued on steroid medication. She reports feeling some better. She continues to have hypoxia and hypercapnia. She has been treated with high-flow oxygen for this. She has been weaning down her flow rate and her FiO2 over the past 2 days. She is known to have COPD and is on budesonide formoterol inhaler, DuoNebs, albuterol at home. She was also started on prednisone prior to this admission. She has obstructive sleep apnea and has CPAP at home which she uses sometimes. She also has oxygen at home which she uses sometimes. She does not use oxygen with her CPAP. Today I went through her medication list from Dr. Dill at the clinic. She has stopped taking many of the medications including some antidepressants. She reports generally feeling better in the last couple days. Exam Narrative: Exam Narrative: She is alert and appears in no obvious distress. She is on high-flow oxygen at 30 L per minute and 30%. Respirations with diffuse expiratory wheezing but breath sounds are improved. Work of breathing appears improved as well. Cardiovascular: S1, S2, regular rate and rhythm. Abdomen: Bowel sounds active. Abdomen is soft without tenderness. Extremities without significant edema. Const: Vital Signs, click to edit/add: Vital Signs - 24 hr 10/25/23 20:15 10/25/23 20:15 10/25/23 23:00 Temperature 98.7 F Pulse Rate [Left P ulse Oximeter] 71 Respiratory Rate 22 Blood Pressure [Le ft Arm] 143/75 H Pulse Oximetry 89 91 Oxygen Delivery Me thod High Flow Nasal Ca nnula Oxygen Flow Rate 30 Fraction of Inspir ed Oxygen 40 40 10/25/23 23:00 10/25/23 23:00 10/25/23 23:00 Temperature Pulse Rate [Left P ulse Oximeter] Respiratory Rate 22 22 Blood Pressure [Le ft Arm] Pulse Oximetry 91 Oxygen Delivery Me thod High Flow Nasal Ca nnula Oxygen Flow Rate 30 Fraction of Inspir ed Oxygen 40 40 10/25/23 23:00 10/26/23 03:00 10/26/23 03:00 Temperature 98.1 F Pulse Rate [Left P ulse Oximeter] 58 L 67 Respiratory Rate 20 20 Blood Pressure [Le ft Arm] 106/63 Pulse Oximetry 91 92 Oxygen Delivery Me thod High Flow Nasal Ca nnula High Flow Nasal Ca nnula Oxygen Flow Rate 30 30 Fraction of Inspir ed Oxygen 40 40 40 10/26/23 07:00 10/26/23 07:00 10/26/23 07:00 Temperature Pulse Rate [Left P ulse Oximeter] Respiratory Rate 20 Blood Pressure [Le ft Arm] Pulse Oximetry 95 95 Oxygen Delivery Me thod High Flow Nasal Ca nnula Oxygen Flow Rate Fraction of Inspir ed Oxygen 30 10/26/23 08:45 10/26/23 11:00 10/26/23 12:33 Temperature 98.3 F 98.7 F Pulse Rate [Left P ulse Oximeter] 65 63 Respiratory Rate 20 20 Blood Pressure [Le ft Arm] 131/74 139/69 Pulse Oximetry 95 90 Oxygen Delivery Me thod High Flow Nasal Ca nnula High Flow Nasal Ca nnula Oxygen Flow Rate 30 30 30 Fraction of Inspir ed Oxygen 30 30 30 10/26/23 12:33 10/26/23 15:00 10/26/23 15:00 Temperature Pulse Rate [Left P ulse Oximeter] Respiratory Rate 20 20 Blood Pressure [Le ft Arm] Pulse Oximetry 90 93 90 Oxygen Delivery Me thod High Flow Nasal Ca nnula High Flow Nasal Ca nnula Oxygen Flow Rate 30 25 Fraction of Inspir ed Oxygen 30 30 10/26/23 15:00 10/26/23 15:00 10/26/23 15:00 Temperature Pulse Rate [Left P ulse Oximeter] 79 79 Respiratory Rate 20 18 Blood Pressure [Le ft Arm] 150/79 H Pulse Oximetry 88 Oxygen Delivery Me thod CPAP Oxygen Flow Rate Fraction of Inspir ed Oxygen 30 Documenting provider has reviewed patient's vital signs: yes Labs Labs: Laboratory Results - last 24 hr 10/25/23 10/26/23 10/26/23 16:58 06:32 08:16 WBC 22.07 H RBC 4.77 Hgb 14.5 Hct 45.3 MCV 95 MCH 30 MCHC 32 Plt Count 256 VBG pH 7.431 H VBG pCO2 59 H VBG pO2 49.3 H VBG HCO3 40 H Sodium 133 L Potassium 3.5 L Chloride 93 L Carbon Dioxide 34 H Anion Gap 6 L BUN 31 H Creatinine 0.6 Estimated Creat Clear 49.08 Estimated GFR 100 Glucose 122 H Calcium 8.4 Troponin I 0.01
[2023-10-26] MEDS: CLOTRIMAZOLE 10 MG TROCHE PO (17:46)
[2023-10-26] MEDS: ALPRAZolam 0.25 MG TABLET 0.5 MG PO (17:51)
--- NOTE | 2023-10-26 18:15 | PC.NURSE ---
shift note: pt trial on cpap with 3L O2 titrated in. pt able to nap and sats 88%. Pt placed on HiFlo for remainder of shift. LS with crkls throughout rt and dim on lt posteriorly. Pt has harsh barking cough and producing minimal clr phlegm. Pt rating lt flank pain with cough 9/10. Pt medicated with tylenol. Pt very weepy this evening. pt received prn xanax. Pt up in recliner for meals and up indept to bathroom. pt reported small hard BM this a.m
[2023-10-26] MEDS: MIRTAZAPINE 15 MG TABLET 45 MG PO (21:04)
[2023-10-26] MEDS: PRAZOSIN HCL 1 MG CAPSULE 4 MG PO (21:05)
[2023-10-27 00:25] VITALS: BP 125/62; PULSE 66; RESP 20; TEMP 36.4; O2SAT 93
[2023-10-27 03:00] VITALS: PULSE 55; RESP 20; O2SAT 92
[2023-10-27] MEDS: OMEPRAZOLE 20 MG CAPSULE DR 40 MG PO (06:19)
[2023-10-27] MEDS: LEVOTHYROXINE 50 MCG TABLET PO (06:19)
--- NOTE | 2023-10-27 06:53 | PC.NURSE ---
: pt reports an improved cough this shift. HFNC at 25/30 when awake. CPAP on at HS, 1.5L O2 bleeding in, O2 sats maintaining 88-92%
[2023-10-27 07:00] VITALS: BP 144/90; PULSE 78; RESP 20; TEMP 36.6; O2SAT 89
[2023-10-27 07:00] LABS: HCO3 VBG 46 mmol/L (21-28); Hematocrit 50.6 % (33.0-51.0); Hemoglobin* 16.4 gm/dL (12.0-16.0); Mean Corpuscular HGB Conc 32 gm/dL (32-36); Mean Corpuscular Hemoglobin 31 pg (26-34); Mean Corpuscular Volume 94 fL (80-100); PO2 VBG 37.7 mmHG (25-47); Platelet Count* 286 K/uL (140-440); Red Blood Count 5.38 m/uL (4.00-5.20); White Blood Count* 17.61 K/uL (4.50-11.00); pH VBG 7.455 (7.32-7.43)
[2023-10-27 07:02] LABS: PCO2 VBG 65 mmHG (40-50)
[2023-10-27 07:26] LABS: Slide Review Reflex No
[2023-10-27 07:28] LABS: Chloride* 93 mmol/L (96-114); Sodium* 137 mmol/L (135-149)
[2023-10-27 07:31] LABS: Blood Urea Nitrogen* 34 mg/dL (7-30); Creatinine* 0.6 mg/dL (0.5-1.5); Est. Creatinine Clearance* 49.08; Estimated Glomerular Filt Rate 100 ml/min
[2023-10-27 07:32] LABS: Calcium* 8.7 mg/dL (8.4-10.6); Glucose* 80 mg/dL (60-115)
[2023-10-27 07:38] LABS: Anion Gap 7 mEq/L (7-15); Carbon Dioxide* 37 mmol/L (20-32)
[2023-10-27] MEDS: ASPIRIN 81 MG TAB.CHEW PO (09:00)
[2023-10-27] MEDS: DOXYCYCLINE HYCLATE 100 MG PO ×2 (09:06→20:36)
[2023-10-27] MEDS: SENNOSIDES/DOCUSATE TABLET 2 TAB PO ×2 (09:06→20:35)
[2023-10-27] MEDS: ENOXAPARIN 40 MG/0.4 ML INJ SUBCUT (09:06)
[2023-10-27] MEDS: TORSEMIDE 20 MG TABLET PO (09:07)
[2023-10-27] MEDS: POTASSIUM CHLORIDE 10 MEQ CAPSULE ER 20 MEQ PO (09:07)
[2023-10-27] MEDS: EMPAGLIFLOZIN 10 MG TABLET 25 MG PO (09:07)
[2023-10-27] MEDS: predniSONE 20 MG TABLET 40 MG PO (09:08)
[2023-10-27] MEDS: IPRAT-ALBUT 0.5-2.5 MG/3 ML NEB 1 NEB IH ×4 (09:09→20:36)
[2023-10-27] MEDS: SODIUM CHLORIDE 0.9 % (FLUSH) 10 ML SYRINGE 5 ML IVF ×2 (09:09→20:37)
[2023-10-27] MEDS: Fluticasone-Umeclidin-Vilanter [Trelegy Ellipta] 100-62.5-25 mcg 1 EACH IH (09:09)
[2023-10-27] MEDS: MAGNESIUM OXIDE 400 MG TABLET PO (09:10)
[2023-10-27] MEDS: ROSUVASTATIN CALCIUM 10 MG TABLET 20 MG PO (09:10)
[2023-10-27] MEDS: ALPRAZolam 0.25 MG TABLET 0.5 MG PO ×2 (09:10→20:35)
[2023-10-27] MEDS: ISOSORBIDE MONONITRATE ER 30 MG TAB 60 MG PO (09:10)
[2023-10-27] MEDS: CLOTRIMAZOLE 10 MG TROCHE PO ×4 (09:11→20:37)
[2023-10-27] MEDS: CLOPIDOGREL 75 MG TABLET PO (09:11)
[2023-10-27] MEDS: buprenorphine HCL 2 MG TAB.SUBL SL ×2 (09:17→20:36)
[2023-10-27] MEDS: BARICITINIB 2 MG TAB 4 MG PO (12:54)
[2023-10-27] MEDS: INSULIN ASPART 100 UNIT/ML SUBCUT ×2 (12:55→17:20)
[2023-10-27] MEDS: METOPROLOL SUCCINATE (XL) 50 MG TAB PO (13:03)
[2023-10-27 15:00] VITALS: BP 107/63; PULSE 65; PULSE 74; RESP 20; TEMP 37.2; O2SAT 89; O2SAT 91; O2SAT 93
--- NOTE | 2023-10-27 15:06 | PM.IMPN1 ---
Progress Note: A&P Assessment and plan (1) Acute on chronic respiratory failure with hypoxia and hypercapnia: Problem details: Underlying severe COPD, SOCORRO and recent COVID infection. Work to wean off of high-flow oxygen on to nasal cannula oxygen which she has at home and home CPAP. Try to limit nasal cannula oxygen to 3 L or less. May need 3 L with activity. Limit oxygen in CPAP to 1-2 L to minimize CO2 retention Status: Acute (2) COVID: Problem details: + on 10/19, treated with 3 days of Paxlovid as an outpatient. Also prednisone - Baricitnib started 10/22 VTE prophylaxis with Lovenox Status: Acute (3) Chronic narcotic use: Problem details: - followed by pain clinic Status: Acute (4) SOCORRO (obstructive sleep apnea): Problem details: - uses CPAP at home. Restart CPAP when she tolerates being off high-flow oxygen Status: Acute (5) Hypotension: Problem details: - resolved Status: Acute (6) Noncompliance with medication regimen: Problem details: Patient reports not taking a number of the medications that are listed in her medical record. She needs to discussion with her primary care doctor about what medicines she should be taking and is willing to take. Status: Acute (7) Diabetes mellitus type 2 in obese: Problem details: elevated blood sugars due to prednisone. Should improve when off prednisone Status: Acute (8) Anxiety: Problem details: Patient was on medications for anxiety and depression on a chronic basis. These have been stopped and she is now managing her anxiety with twice daily Xanax. Symptom management is suboptimal at this time. Patient is not interested taking chronic antidepressants or anxiolytics other than Xanax Status: Acute Plan Continue in hospital for management of respiratory failure. Anticipate discharge to home when able to wean her oxygen down to 2 L per nasal cannula. Outpatient follow-up for her respiratory failure as well as anxiety and depression. Time Spent With Patient Total time spent: Total time spent today is 55 minutes, 40 minutes in coordination of care discussing with patient other providers management of respiratory failure, disposition planning and anxiety about her chronic lung disease Subjective Date Seen: 10/27/23 Interval history: 63-year-old admitted to the hospital with cough and dyspnea. She 1st became ill with COVID around 10/16/2023 and diagnosed with a positive COVID test on 10/18/2023. She was started on Paxlovid and steroids for her COVID and COPD exacerbation. She also had a fever at home. She got progressively worse and came to the hospital and was admitted on October 22 for hypoxic and hypercapnic respiratory failure. At that time she was started on Baricitinib and continued on steroid medication. She reports feeling some better. She continues to have hypoxia and hypercapnia. She has been treated with high-flow oxygen for this. She has been weaning down her flow rate and her FiO2 over the past 2 days. She is known to have COPD and is on budesonide formoterol inhaler, DuoNebs, albuterol at home. She was also started on prednisone prior to this admission. She has obstructive sleep apnea and has CPAP at home which she uses sometimes. She also has oxygen at home which she uses sometimes. She does not use oxygen with her CPAP. Today I went through her medication list from Dr. Dill at the clinic. She has stopped taking many of the medications including some antidepressants. Today she has weaned off high-flow oxygen to 3 L per nasal cannula. Last night she was on CPAP with supplemental oxygen and has been able to maintain her O2 sats in the upper 80s with this strategy. She reports mild dyspnea at rest. She reports being more upset and worried about her current status. I did discuss with her that the likelihood that she would need to go home on supplemental oxygen. She is concerned that she will not return to her previous baseline of functioning quite independently off of supplemental oxygen. She has been intermittently tearful and agitated and upset about her current status. Exam Narrative: Exam Narrative: She is alert intermittently tearful and anxious. Respirations with much improved air exchange, almost complete resolution of wheezing. Mildly prolonged expiratory phase with overall improvement compared to yesterday. Cardiovascular: S1, S2, regular rate and rhythm. Abdomen: Bowel sounds active. Abdomen is soft without tenderness or mass. Extremities without significant edema. Const: Vital Signs, click to edit/add: Vital Signs - 24 hr 10/26/23 19:30 10/26/23 20:00 10/26/23 23:00 Temperature 98.1 F Pulse Rate [Left P ulse Oximeter] 72 Respiratory Rate 18 Blood Pressure [Le ft Arm] 125/69 Pulse Oximetry 91 89 Oxygen Delivery Me thod High Flow Nasal Ca nnula Oxygen Flow Rate 25 Fraction of Inspir ed Oxygen 30 30 10/26/23 23:00 10/26/23 23:00 10/27/23 00:25 Temperature 97.6 F Pulse Rate [Left P ulse Oximeter] 66 Respiratory Rate 18 20 20 Blood Pressure [Le ft Arm] 125/62 Pulse Oximetry 89 93 Oxygen Delivery Me thod CPAP CPAP Oxygen Flow Rate 3 3.0 Fraction of Inspir ed Oxygen 10/27/23 03:00 10/27/23 07:00 10/27/23 07:00 Temperature 97.8 F Pulse Rate [Left P ulse Oximeter] 55 L 78 Respiratory Rate 20 20 Blood Pressure [Le ft Arm] 144/90 H Pulse Oximetry 92 89 89 Oxygen Delivery Me thod CPAP High Flow Nasal Ca nnula Oxygen Flow Rate 2 25 Fraction of Inspir ed Oxygen 30 10/27/23 07:00 10/27/23 14:51 Temperature Pulse Rate [Left P ulse Oximeter] Respiratory Rate 20 Blood Pressure [Le ft Arm] Pulse Oximetry 89 Oxygen Delivery Me thod CPAP Oxygen Flow Rate 3 30 Fraction of Inspir ed Oxygen 30 Documenting provider has reviewed patient's vital signs: yes Labs Labs: Laboratory Results - last 24 hr 10/27/23 06:19 WBC 17.61 H RBC 5.38 H Hgb 16.4 H Hct 50.6 MCV 94 MCH 31 MCHC 32 Plt Count 286 VBG pH 7.455 H VBG pCO2 65 H* VBG pO2 37.7 VBG HCO3 46 H Sodium 137 Potassium 4.0 Chloride 93 L Carbon Dioxide 37 H Anion Gap 7 BUN 34 H Creatinine 0.6 Estimated Creat Clear 49.08 Estimated GFR 100 Glucose 80 Calcium 8.7
--- NOTE | 2023-10-27 15:52 | RESP.RT ---
BBS much improved this AM, light expiratory wheeze in L upper lobe in AM. removed from HFNC, and placed on 3L. Pt also used CPAP during the day with 2L bled in. HFNC is on SB in room , Settings if needed are FIO2 30% Flow of 20L, Temp 36 degrees. would like to keep her on 3L in kelsi and CPAP at night. Note that pt has a long ramp time on the CPAP so it may take 25 minutes to reach max pressure. start CPAP 15-20 minutes before mask is placed on face. start oxygen at 2L. Tolerates saturations as low as 87%.
--- NOTE | 2023-10-27 17:56 | PC.NURSE ---
shift note: pt transitioned to NC @ 3L while awake. sats cont at 93%. O2 decreased to 2.5L with sats maintain @90%. Pt LS dim/clr. Pt denies sob. Pt states cough infrequent. Reviewed RT plan with pt. Pt up indept in room. IV patent.
[2023-10-27 19:00] VITALS: BP 112/66; PULSE 74; RESP 20; TEMP 37.5; O2SAT 93
[2023-10-27] MEDS: PRAZOSIN HCL 1 MG CAPSULE 4 MG PO (20:36)
[2023-10-27] MEDS: MIRTAZAPINE 15 MG TABLET 45 MG PO (20:36)
[2023-10-27 23:00] VITALS: BP 89/52; PULSE 88; RESP 18; TEMP 37; O2SAT 91; O2SAT 95
[2023-10-28 03:00] VITALS: BP 117/64; PULSE 74; RESP 16; TEMP 36.9; O2SAT 88
[2023-10-28 06:25] LABS: HCO3 VBG 40 mmol/L (21-28); PCO2 VBG 49 mmHG (40-50); PO2 VBG 53.4 mmHG (25-47); pH VBG 7.525 (7.32-7.43)
[2023-10-28] MEDS: OMEPRAZOLE 20 MG CAPSULE DR 40 MG PO (06:25)
[2023-10-28] MEDS: ENOXAPARIN 40 MG/0.4 ML INJ SUBCUT (06:25)
[2023-10-28] MEDS: LEVOTHYROXINE 50 MCG TABLET PO (06:25)
--- NOTE | 2023-10-28 06:34 | PC.NURSE ---
End of shift report [id number]: Alert and oriented x 3. Generalized pain reported, pain managed with current regimen and repositioning. Denies any shortness of breath. O2 per nasal cannula at 2L and sats maintained between 89-92% at 2300 patient transitioned to CPAP with O2 bled in at 1.5L, patient able to maintain sats >88% through the night with sats ranging from 88-92%. Transfers and ambulates independently. Blood glucose at 2100 476, Dr. Greer updated and one time order for 8 units regular insulin to be administered instead of 6units per sliding scale, recheck of blood glucose 2 hours later 301. Patient reported she ate a banana, crackers and sherbert after insulin administered.
[2023-10-28 07:01] LABS: Chloride* 97 mmol/L (96-114); Sodium* 136 mmol/L (135-149)
[2023-10-28 07:02] LABS: Potassium* 3.5 mmol/L (3.6-5.1)
[2023-10-28 07:04] LABS: Creatinine* 0.6 mg/dL (0.5-1.5); Est. Creatinine Clearance* 49.08; Estimated Glomerular Filt Rate 100 ml/min
[2023-10-28 07:05] LABS: Anion Gap 4 mEq/L (7-15); Blood Urea Nitrogen* 33 mg/dL (7-30); Calcium* 8.8 mg/dL (8.4-10.6); Carbon Dioxide* 35 mmol/L (20-32); Glucose* 169 mg/dL (60-115)
[2023-10-28 07:08] LABS: Hematocrit 51.9 % (33.0-51.0); Hemoglobin* 16.8 gm/dL (12.0-16.0); Mean Corpuscular HGB Conc 32 gm/dL (32-36); Mean Corpuscular Hemoglobin 31 pg (26-34); Mean Corpuscular Volume 95 fL (80-100); Platelet Count* 301 K/uL (140-440); Red Blood Count 5.47 m/uL (4.00-5.20); White Blood Count* 19.41 K/uL (4.50-11.00)
[2023-10-28 07:09] LABS: Slide Review Reflex No
[2023-10-28 07:59] VITALS: RESP 20; O2SAT 88
[2023-10-28 08:04] VITALS: BP 139/71; PULSE 80; RESP 20; TEMP 36.8; O2SAT 88
[2023-10-28] MEDS: IPRAT-ALBUT 0.5-2.5 MG/3 ML NEB 1 NEB IH ×2 (08:06→12:26)
[2023-10-28] MEDS: buprenorphine HCL 2 MG TAB.SUBL SL (08:08)
[2023-10-28] MEDS: ASPIRIN 81 MG TAB.CHEW PO (08:08)
[2023-10-28] MEDS: POTASSIUM CHLORIDE 10 MEQ CAPSULE ER 20 MEQ PO (08:08)
[2023-10-28] MEDS: predniSONE 20 MG TABLET 40 MG PO (08:08)
[2023-10-28] MEDS: DOXYCYCLINE HYCLATE 100 MG PO (08:08)
[2023-10-28] MEDS: ROSUVASTATIN CALCIUM 10 MG TABLET 20 MG PO (08:09)
[2023-10-28] MEDS: SENNOSIDES/DOCUSATE TABLET 2 TAB PO (08:09)
[2023-10-28] MEDS: ISOSORBIDE MONONITRATE ER 30 MG TAB 60 MG PO (08:09)
[2023-10-28] MEDS: METOPROLOL SUCCINATE (XL) 50 MG TAB PO (08:09)
[2023-10-28] MEDS: CLOPIDOGREL 75 MG TABLET PO (08:09)
[2023-10-28] MEDS: SODIUM CHLORIDE 0.9 % (FLUSH) 10 ML SYRINGE 5 ML IVF (08:10)
[2023-10-28] MEDS: TORSEMIDE 20 MG TABLET PO (08:10)
[2023-10-28] MEDS: EMPAGLIFLOZIN 10 MG TABLET 25 MG PO (08:10)
[2023-10-28] MEDS: Fluticasone-Umeclidin-Vilanter [Trelegy Ellipta] 100-62.5-25 mcg 1 EACH IH (08:11)
[2023-10-28] MEDS: CLOTRIMAZOLE 10 MG TROCHE PO ×2 (08:11→12:26)
[2023-10-28] MEDS: MAGNESIUM OXIDE 400 MG TABLET PO (09:21)
--- NOTE | 2023-10-28 11:49 | P.DS_ITS ---
DS: Providers Provider Date Seen: 10/28/23 Date of admission: 10/22/23 02:35 Primary care physician: Moreno Dill MD Admitting Clinician: Amena Park MD Consults: RT, PT, OT Attending Physician on discharge: Amena Park MD Date of Discharge: 10/28/23 DS: Diagnosis Discharge Diagnosis (1) Acute on chronic respiratory failure with hypoxia and hypercapnia: Status: Acute Problem details: - underlying severe COPD + SOCORRO and recent COVID infection - required intermittent high flow oxygen during stay, improved with steroids, nebs, Doxycycline, time - RT followed during stay; able to wean off of O2 to low dose NC on 10/28/23 (2) COVID: Status: Acute Problem details: - diagnosed + on 10/19 at [facility], treated with 3 days of Paxlovid and Prednisone as an outpatient prior to admission - Baricitnib started 10/22 - VTE prophylaxis during stay with Lovenox (3) Chronic narcotic use: Status: Acute Problem details: - followed by pain clinic, home buprenorphine continued during stay (4) SOCORRO (obstructive sleep apnea): Status: Acute Problem details: - uses CPAP at home. Restart CPAP when she tolerates being off high-flow oxygen (5) Hypotension: Status: Acute Problem details: - resolved (6) Noncompliance with medication regimen: Status: Acute Problem details: - during stay, Meg noted that she was not taking many of her medications as prescribed - will f/u with PCP to discuss further (7) Diabetes mellitus type 2 in obese: Status: Acute Problem details: - elevated blood sugars during stay 2/2 Prednisone use (varied from 92-470s) (8) Anxiety: Status: Acute Problem details: - prior to admission, Meg was taking medications for anxiety and depression daily, now primarily taking Xanax BID, will f/u with PCP DS: Summary Hospital Course Hospital Course: Meg was admitted to the hospital on 10/22/23 for acute on chronic hypoxic hypercarbic respiratory failure in setting of COVID infection. She was treated with steroids, baricitinib, nebs, and doxycycline given underlying COPD. She intermittently required high-flow oxygen during stay, was able to taper to nasal cannula by day of discharge. She did well wearing her home CPAP at night, and plans compliance with this upon discharge home. Other notable findings above. Patient will be discharged home on prednisone taper (has completed course of doxycycline and baricitinib), close follow-up with PCP scheduled. Status at Discharge Functional status at discharge: independent ambulation Overall status at discharge: patient is progressing back to baseline Time Spent with Patient Time attestation: Total time spent providing and/or coordinating discharge services: Time spent: Greater than 30 minutes Specific discharge activities: Medication reconciliation, patient Education, collaboration with therapy teams Exam Narrative: Exam Narrative: GEN: Alert and appears comfortable in bed, nontoxic and speaking in full sentences HEENT: EOMIs bilaterally, no scleral icterus CV: RRR, No concerning murmurs R: LCTA bilaterally without concerning wheezing, mild bibasilar rhonchi Ext: wwp, no concerning edema Neuro: No focal deficits Psych: Appropriate Const: Vital Signs, click to edit/add: Vital Signs - 24 hr 10/27/23 14:51 10/27/23 15:00 10/27/23 15:00 Temperature Pulse Rate [Left P ulse Oximeter] 74 Respiratory Rate 20 Blood Pressure [Le ft Arm] Pulse Oximetry 89 Oxygen Delivery Me thod Oxygen Flow Rate 30 Fraction of Inspir ed Oxygen 30 10/27/23 15:00 10/27/23 15:00 10/27/23 19:00 Temperature 98.9 F 99.5 F Pulse Rate [Left P ulse Oximeter] 65 74 Respiratory Rate 20 20 Blood Pressure [Le ft Arm] 107/63 112/66 Pulse Oximetry 93 91 93 Oxygen Delivery Me thod Nasal Cannula CPAP Nasal Cannula Nasal Cannula Oxygen Flow Rate 3.5 3 2.5 Fraction of Inspir ed Oxygen 10/27/23 23:00 10/27/23 23:00 10/27/23 23:00 Temperature Pulse Rate [Left P ulse Oximeter] 88 Respiratory Rate 18 18 Blood Pressure [Le ft Arm] Pulse Oximetry 95 95 Oxygen Delivery Me thod Nasal Cannula Oxygen Flow Rate 2.5 Fraction of Inspir ed Oxygen 10/27/23 23:00 10/28/23 03:00 10/28/23 07:59 Temperature 98.6 F 98.4 F Pulse Rate [Left P ulse Oximeter] 88 74 Respiratory Rate 18 16 Blood Pressure [Le ft Arm] 89/52 L 117/64 Pulse Oximetry 91 88 88 Oxygen Delivery Me thod Nasal Cannula CPAP Oxygen Flow Rate 2 1.5 Fraction of Inspir ed Oxygen 10/28/23 07:59 10/28/23 08:04 Temperature 98.3 F Pulse Rate [Left P ulse Oximeter] 80 Respiratory Rate 20 20 Blood Pressure [Le ft Arm] 139/71 Pulse Oximetry 88 88 Oxygen Delivery Me thod Nasal Cannula Nasal Cannula Oxygen Flow Rate 1 1 Fraction of Inspir ed Oxygen DS: Data Data Completed and Pending Completed studies during hospitalization: Procedures Assistance with Respiratory Ventilation, 24-96 Consecutive Hours, Continuous Positive Airway Pressure (03/29/22) Introduction of Other Gas into Respiratory Tract, Via Natural or Artificial Opening (03/02/22) Labs on day of discharge: Labs from last 24 hours 10/28/23 06:15 WBC 19.41 H RBC 5.47 H Hgb 16.8 H Hct 51.9 H MCV 95 MCH 31 MCHC 32 Plt Count 301 VBG pH 7.525 H VBG pCO2 49 VBG pO2 53.4 H VBG HCO3 40 H Sodium 136 Potassium 3.5 L Chloride 97 Carbon Dioxide 35 H Anion Gap 4 L BUN 33 H Creatinine 0.6 Estimated Creat Clear 49.08 Estimated GFR 100 Glucose 169 H Calcium 8.8 Discharge Plan Discharge Disposition: Home, Self-Care Date of Admission: 10/22/23 02:35 Attending Provider on Discharge: Amena Park Primary Care Provider: Moreno iDll Condition: Improved Anticipated Discharge Date/Time: 10/28/23 11:47 Discharge Medications: New buprenorphine HCl 2 mg Tablet, Sublingual 2 mg sublingual BID Qty: 60 0RF prednisone 10 mg tablet 10 mg PO DIRECTED 13 Days Qty: 13 0RF Rx Instructions: 3 tabs daily x3d, then 2 tabs daily x3d, then 1 tab daily x7d Continued ipratropium-albuterol 0.5 mg-3 mg(2.5 mg base)/3 mL solution for nebulization 3 ml inhalation Q6H PRN aspirin 81 mg tablet,chewable 81 mg PO DAILY naloxone 4 mg/actuation spray,non-aerosol 4 mg intranasal Q2-3M PRN Rx Instructions: spray 1 dose into ONE nostril; alternate nostrils w each dose until help arrives sennosides-docusate sodium 8.6-50 mg tablet 2 tab PO BID levothyroxine [Synthroid] 50 mcg tablet 50 mcg PO DAILY rosuvastatin [Crestor] 20 mg tablet 20 mg PO HS clopidogrel [Plavix] 75 mg tablet 75 mg PO DAILY nitroglycerin [Nitrostat] 0.4 mg tablet, sublingual 0.4 mg sublingual Q5M Rx Instructions: do not exceed 3 doses per episode ezetimibe [Zetia] 10 mg tablet 10 mg PO DAILY isosorbide mononitrate 60 mg tablet extended release 24 hr 120 mg PO DAILY magnesium oxide 400 mg magnesium capsule 400 mg PO DAILY Nasal [place] (sodium chloride) 0.65 % aerosol,spray 2 spray intranasal Q2H PRN meclizine 25 mg tablet 25 mg PO TID PRN metoprolol succinate 50 mg tablet extended release 24 hr 50 mg PO DAILY ondansetron HCl 4 mg tablet 4 mg PO Q8H PRN acetaminophen 500 mg tablet 1,000 mg PO TID PRN alprazolam 0.5 mg tablet extended release 24 hr 0.5 mg PO Q12H baclofen 10 mg tablet 10 mg PO BID cetirizine 10 mg tablet 10 mg PO DAILY methocarbamol 750 mg tablet 750 mg PO HS Trelegy Ellipta 100-62.5-25 mcg blister with device 1 ea inhalation DAILY mirtazapine 45 mg tablet 45 mg PO HS omega 0-vmf-anw-fish oil [Fish Oil] 1,000 mg (120 mg-180 mg) capsule 1 cap PO HS omeprazole 20 mg capsule,delayed release(DR/EC) 20 mg PO DAILY tizanidine 4 mg tablet 4 mg PO Q6H PRN Spiriva Respimat 2.5 mcg/actuation mist 2 puff inhalation DAILY topiramate [Topamax] 25 mg tablet 25 mg PO DAILY venlafaxine 75 mg capsule,extended release 24hr 225 mg PO DAILY torsemide 20 mg tablet 20 mg PO DAILY albuterol sulfate 90 mcg/actuation HFA aerosol inhaler 2 puff INHALATION Q4H PRN potassium chloride 20 mEq tablet,ER particles/crystals 40 meq PO DAILY Qty: 60 0RF Jardiance 25 mg tablet 25 mg PO DAILY Discontinued glimepiride 1 mg tablet 2 mg PO BID prazosin 2 mg capsule 6 mg PO HS prednisone .ROUTE nirmatrelvir-ritonavir [Paxlovid] PO azithromycin 250 mg tablet See Rx Instructions .ROUTE .COMPLEX Rx Instructions: For 250 mg dose pack: take 500 mg today (day 1), then 250 mg for 4 days (days 2-5) bupropion HCl [Wellbutrin XL] 150 mg tablet extended release 24 hr 150 mg PO DAILY Paxlovid 300 mg (150 mg x 2)-100 mg tablets,dose pack See Rx Instructions .ROUTE .COMPLEX Rx Instructions: take TWO 150 mg tablets of nirmatrelvir with ONE 100 mg tablet of ritonavir twice daily for 5 days buprenorphine HCl 2 mg tablet, sublingual 2 mg SUBLINGUAL QID quetiapine 200 mg tablet 200 mg PO QPM Discharge Orders: Discharge Order (Routine); Ordered 10/28/23 Ordered By: Amena Park Patient Education: Prednisone (By mouth), Buprenorphine (Into the mouth), COPD (Chronic Obstructive Pulmonary Disease) (DC), COVID-19 and Chronic Health Conditions (DC) Additional Instructions: Wear your Oxygen ALL DAY and your CPAP EVERY NIGHT. You've completed a course of antibiotics, but need to taper off of your Prednisone (this prescription was sent to [place] pharmacy). Take things easy over the next couple of weeks and see Dr. Dill as scheduled next week. Activity Level: Activity as Tolerated and No strenuous activity Discharge Diet: Regular Follow Up Appointments: Moreno Dill MD [Primary Care Provider] - 11/04/23 10:30 am (please make an appt for patient to see Dr. Dill in the next 4-7 days (hospital d/c followup for COVID)) Forms: [employer] Info Instructions
[2023-10-28] MEDS: INSULIN ASPART 100 UNIT/ML SUBCUT (12:25)
[2023-10-28] MEDS: BARICITINIB 2 MG TAB 4 MG PO (12:26)
[2023-10-28 12:35] VITALS: BP 139/71; PULSE 90; RESP 20; TEMP 36.8; O2SAT 89
--- NOTE | 2023-10-28 14:01 | PC.NURSE ---
Pt alert and oriented. Pt cooperative. Pt had no complaints of pain. Pt on 1-2 Liter?s O2 and tolerating well. Pt had some complaints of SOB. Pt takes medication whole. Pt?s IV removed; catheter intact. VSS. Pt discharged home and was picked up by Son. The hospitalist and RT spoke with Pt right before discharge to address any additional concerns. Pt sent home with all home medications that were brought in.? ?
--- NOTE | 2023-10-28 14:02 | PC.NURSE ---
Pt independent in room with ADL's.
== END 2023-10-28 13:30 | disposition home or self-care (01) | DRG 177 ==
LOC: ED 22:44 → MEDSURG 10-22 00:52
PROVIDERS: Family Medicine; Admitting Provider Family Medicine; Emergency Provider Family Medicine; PCP Family Medicine; Visit Provider Family Medicine
DX: U07.1 COVID-19 (principal); J96.21 Acute and chronic respiratory failure with hypoxia; J96.22 Acute and chronic respiratory failure with hypercapnia; F11.20 Opioid dependence, uncomplicated; J44.1 Chronic obstructive pulmonary disease with (acute) exacerbation; Z87.891 Personal history of nicotine dependence; E11.59 Type 2 diabetes mellitus with other circulatory complications; E66.9 Obesity, unspecified; G47.33 Obstructive sleep apnea (adult) (pediatric); Z99.89 Dependence on other enabling machines and devices; I95.9 Hypotension, unspecified; G89.4 Chronic pain syndrome; M47.819 Spondylosis without myelopathy or radiculopathy, site unspecified; G47.00 Insomnia, unspecified; M48.061 Spinal stenosis, lumbar region without neurogenic claudication; K21.9 Gastro-esophageal reflux disease without esophagitis; Z95.5 Presence of coronary angioplasty implant and graft; Z79.84 Long term (current) use of oral hypoglycemic drugs; I25.10 Atherosclerotic heart disease of native coronary artery without angina pectoris; I50.9 Heart failure, unspecified; E03.9 Hypothyroidism, unspecified; E05.00 Thyrotoxicosis with diffuse goiter without thyrotoxic crisis or storm; F43.10 Post-traumatic stress disorder, unspecified; F41.9 Anxiety disorder, unspecified; F60.89 Other specific personality disorders; E78.5 Hyperlipidemia, unspecified
CPT/HCPCS: 36415; 71045; 71275; 80048; 80053; 80069; 80076; 82803; 82962; 83036; 83735; 83880; 84145; 84484; 85025; 85027; 85610; 86140; 93005; 93306; 94640; 94664; 94761; 97116; 97161; 97165; 99285; 99291; J0571; A9270; J1650; J1885; J1940; J2930; J7050; J7512; Q9967

== ENCOUNTER 2024-03-25 16:34 | Emergency (ER) | payer OTHER, SELFPAY ==
[2024-03-25 16:36] VITALS: BP 153/79; PULSE 76; RESP 22; TEMP 36.1; O2SAT 95; BMI 29.4
--- NOTE | 2024-03-25 16:37 | ED_ITS ---
HPI - Chest Pain General Date Seen: 03/25/24 Chief Complaint: Chest Pain Stated Complaint: chest pain, high blood pressure Time Seen by Provider: 03/25/24 16:36 History of Present Illness HPI narrative: 64-year-old female with a complex past history which includes COPD, coronary artery disease, congestive heart failure, type 2 diabetes, elevated BMI, sleep apnea, hypothyroidism, PTSD, cluster B personality disorder, chronic pain syndrome, as well as others. Most recent ER visit was 10/21/2023-shortness of breath, COVID positive. Initial blood pressure readings were low. Subsequent blood pressure readings come up to 126/75. Hospitalized until October 27. Blood pressures were normal on the day of discharge-107/63 and 112/66. She also reports a long history of COPD. She uses an albuterol inhaler and nebulizer, on average about 4 times a day. She has been feeling wheezy or lately and has been using it more often. It helps temporarily. She is not currently on steroids and has been on steroids a couple of times in the past year. She also has a lot of trouble with anxiety and insomnia. In the past she had been on a long-acting benzodiazepines but her doctor took her off them a few weeks ago. They substituted olanzapine in its place. She has been taking olanzapine at 2 tablets at bedtime which helps her sleep through the night, along with her Remeron. She had also been on lens a Pean 1 tablet in the morning for anxiety. However she developed a cough after starting on the morning when speaking. Her provider thinks that her cough is a side effect of lens of pain so they stopped her morning labs a Pean a few weeks ago. They also told her to wean off the night time olanzapine. Instead of taking 2 tablets at bedtime she was to take 1 tablet at bedtime 2 nights ago, 1 tablet at bedtime last night, and 1 tablet at bedtime tonight, then stop. They are not replacing her nighttime align speed with any new med for sleep. She notes very poor sleep last night and the night before and a lot of increasing anxiety. She has also been having episodes of chest pain off and on for the past weeks. There is no clear pattern to these. No relationship to exertion. She recalls a bad episode of chest pain and shortness of breath that occurred a couple of days ago when she was in the shower. She was very short of breath, having chest pain, and felt the need to be pacing around her house. She followed up with her primary doctor on Saturday, the day after that episode and had an EKG which looked normal. She did not have a cardiac enzymes at that time. Although she knew her symptoms might be a cardiac event, she thought they might also be panic, does not like doctors, so did not come to the ER that day. Her current symptoms began today at about 1:00 a.m. when she was at home on the couch. She is feeling chest pain, shortness of breath, anxiety, she is at also anxious and tearful. She came to the ER wanting to be worked up. She is not sure if she is having a panic attack or heart attack. No swelling in her legs. She had a chest x-ray the other day at her doctor's office that showed clear lungs. Her doctor put her on a Zithromax anyway.. Related Data Home Medications ?Medication ?Instructions ?Recorded ?Confirmed aspirin 81 mg chewable tablet 81 mg PO DAILY 03/02/22 03/25/24 clopidogrel 75 mg tablet (Plavix) 75 mg PO DAILY 03/02/22 03/25/24 ezetimibe 10 mg tablet (Zetia) 10 mg PO DAILY 03/02/22 03/25/24 ipratropium 0.5 mg-albuterol 3 mg 3 ml inhalation Q6H PRN 03/02/22 03/25/24 (2.5 mg base)/3 mL nebulization soln isosorbide mononitrate 60 mg 120 mg PO DAILY 03/02/22 03/25/24 tablet,extended release 24 hr levothyroxine 50 mcg tablet 50 mcg PO DAILY 03/02/22 03/25/24 (Synthroid) magnesium oxide 400 mg PO DAILY 03/02/22 03/25/24 meclizine 25 mg tablet 25 mg PO TID PRN 03/02/22 03/25/24 metoprolol succinate 50 mg 50 mg PO DAILY 03/02/22 03/25/24 tablet,extended release 24 hr naloxone 4 mg/actuation nasal spray 4 mg intranasal Q2-3M PRN 03/02/22 03/25/24 nitroglycerin 0.4 mg sublingual 0.4 mg sublingual Q5M 03/02/22 03/25/24 tablet (Nitrostat) ondansetron HCl 4 mg tablet 4 mg PO Q8H PRN 03/02/22 03/25/24 rosuvastatin 20 mg tablet (Crestor) 20 mg PO HS 03/02/22 03/25/24 sennosides 8.6 mg-docusate sodium 2 tab PO BID 03/02/22 03/25/24 50 mg tablet sodium chloride 0.65 % nasal spray 2 spray intranasal Q2H PRN 03/02/22 03/25/24 aerosol (Nasal [place] (sodium chloride)) albuterol sulfate 90 mcg/actuation 2 puff inhalation Q4H PRN 03/30/22 03/25/24 aerosol inhaler empagliflozin 25 mg tablet 25 mg PO DAILY 12/12/22 03/25/24 (Jardiance) acetaminophen 500 mg tablet 1,000 mg PO TID PRN 10/22/23 03/25/24 alprazolam 0.5 mg tablet,extended 0.5 mg PO Q12H 10/22/23 03/25/24 release 24 hr baclofen 10 mg tablet 10 mg PO BID 10/22/23 03/25/24 cetirizine 10 mg tablet 10 mg PO DAILY 10/22/23 03/25/24 fluticasone fur. 100 mcg-umeclid 1 ea inhalation DAILY 10/22/23 03/25/24 62.5 mcg-vilant 25 mcg inhalat.powder (Trelegy Ellipta) methocarbamol 750 mg tablet 750 mg PO HS 10/22/23 03/25/24 mirtazapine 45 mg tablet 45 mg PO HS 10/22/23 03/25/24 omega 4-qfu-pxh-fish oil 1,000 mg 1 cap PO HS 10/22/23 03/25/24 (120 mg-180 mg) capsule (Fish Oil) omeprazole 20 mg capsule,delayed 20 mg PO DAILY 10/22/23 03/25/24 release tiotropium bromide 2.5 2 puff inhalation DAILY 10/22/23 03/25/24 mcg/actuation mist for inhalation (Spiriva Respimat) tizanidine 4 mg tablet 4 mg PO Q6H PRN 10/22/23 03/25/24 topiramate 25 mg tablet (Topamax) 25 mg PO DAILY 10/22/23 03/25/24 torsemide 20 mg tablet 20 mg PO DAILY 10/22/23 03/25/24 venlafaxine 75 mg capsule,extended 225 mg PO DAILY 10/22/23 03/25/24 release 24 hr Previous Rx's ?Medication ?Instructions ?Recorded potassium chloride 20 mEq 40 meq (2 x 20 mEq) PO DAILY #60 04/02/22 tablet,extended release(part/cryst) tabs buprenorphine HCl 2 mg sublingual 2 mg sublingual BID #60 tabs 10/28/23 tablet prednisone 10 mg tablet 10 mg PO DIRECTED 13 days #13 10/28/23 tabs Allergies Allergy/AdvReac Type Severity Reaction Status Date / Time sumatriptan Allergy Severe Anaphylaxis Verified 03/25/24 16:43 buspirone Allergy Intermediate Rash Verified 03/25/24 16:43 fentanyl Allergy Intermediate Verified 03/25/24 16:43 gabapentin Allergy Intermediate gi upset Verified 03/25/24 16:43 niacin Allergy Intermediate Verified 03/25/24 16:43 trazodone Allergy Intermediate Verified 03/25/24 16:43 atorvastatin Allergy Mild myalgia Verified 03/25/24 16:43 codeine Allergy Mild itching Verified 03/25/24 16:43 rizatriptan Allergy Mild Flushing Verified 03/25/24 16:43 [facility] Medical History (Updated 03/25/24 @ 20:27 by Aubrey Miller MD) Noncompliance with medication regimen ?Z91.148 - Patient's other noncompliance with medication regimen for other reason (ICD-10) Acute on chronic respiratory failure with hypoxia and hypercapnia ?J96.21 - Acute and chronic respiratory failure with hypoxia (ICD-10) ?J96.22 - Acute and chronic respiratory failure with hypercapnia (ICD-10) Chronic narcotic use ?F11.90 - Opioid use, unspecified, uncomplicated (ICD-10) Hypokalemia ?E87.6 - Hypokalemia (ICD-10) Encephalopathy acute ?G93.40 - Encephalopathy, unspecified (ICD-10) Hyperkalemia ?E87.5 - Hyperkalemia (ICD-10) Hyponatremia ?E87.1 - Hypo-osmolality and hyponatremia (ICD-10) Coronary artery disease ?I25.10 - Atherosclerotic heart disease of [place] coronary artery without angina pectoris (ICD-10) Congestive heart failure ?I50.9 - Heart failure, unspecified (ICD-10) Diabetes mellitus type 2 in obese ?E11.69 - Type 2 diabetes mellitus with other specified complication (ICD-10) ?E66.9 - Obesity, unspecified (ICD-10) Respiratory failure ?J96.90 - Respiratory failure, unspecified, unspecified whether with hypoxia or hypercapnia (ICD-10) Acute hyponatremia ?E87.1 - Hypo-osmolality and hyponatremia (ICD-10) Congestive heart failure ?I50.9 - Heart failure, unspecified (ICD-10) Hypothyroidism ?E03.9 - Hypothyroidism, unspecified (ICD-10) Type 2 diabetes mellitus with circulatory disorder, without long-term current use of insulin ?E11.59 - Type 2 diabetes mellitus with other circulatory complications (ICD- 10) Graves disease ?E05.00 - Thyrotoxicosis with diffuse goiter without thyrotoxic crisis or storm (ICD-10) SOCORRO (obstructive sleep apnea) ?G47.33 - Obstructive sleep apnea (adult) (pediatric) (ICD-10) CAD (coronary artery disease) ?I25.10 - Atherosclerotic heart disease of [place] coronary artery without angina pectoris (ICD-10) Recurrent major depression ?F33.9 - Major depressive disorder, recurrent, unspecified (ICD-10) History of nicotine dependence ?Z87.891 - Personal history of nicotine dependence (ICD-10) Chronic pain syndrome ?G89.4 - Chronic pain syndrome (ICD-10) Arthropathy of spinal facet joint ?M47.819 - Spondylosis without myelopathy or radiculopathy, site unspecified (ICD-10) Allergic rhinitis due to pollen ?J30.1 - Allergic rhinitis due to pollen (ICD-10) Insomnia ?G47.00 - Insomnia, unspecified (ICD-10) Hyperlipidemia ?E78.5 - Hyperlipidemia, unspecified (ICD-10) Lumbar spinal stenosis ?M48.061 - Spinal stenosis, lumbar region without neurogenic claudication (ICD-10) Opioid dependence ?F11.20 - Opioid dependence, uncomplicated (ICD-10) Refractory migraine ?G43.919 - Migraine, unspecified, intractable, without status migrainosus (ICD-10) Secondary polycythemia ?D75.1 - Secondary polycythemia (ICD-10) PTSD (post-traumatic stress disorder) ?F43.10 - Post-traumatic stress disorder, unspecified (ICD-10) Panic disorder ?F41.0 - Panic disorder [episodic paroxysmal anxiety] (ICD-10) Anxiety ?F41.9 - Anxiety disorder, unspecified (ICD-10) GERD (gastroesophageal reflux disease) ?K21.9 - Gastro-esophageal reflux disease without esophagitis (ICD-10) Chest pain ?R07.9 - Chest pain, unspecified (ICD-10) Edema ?R60.9 - Edema, unspecified (ICD-10) Acute on chronic heart failure with preserved ejection fraction ?I50.33 - Acute on chronic diastolic (congestive) heart failure (ICD-10) CO2 retention ?E87.2 - Acidosis (ICD-10) Cluster B personality disorder ?F60.89 - Other specific personality disorders (ICD-10) Leukocytosis ?D72.829 - Elevated white blood cell count, unspecified (ICD-10) Acute and chronic respiratory failure (gvvav-vv-zdydswe) ?J96.20 - Acute and chronic respiratory failure, unspecified whether with hypoxia or hypercapnia (ICD-10) COPD (chronic obstructive pulmonary disease) ?J44.9 - Chronic obstructive pulmonary disease, unspecified (ICD-10) Surgical History H/O heart artery stent ?Z95.5 - Presence of coronary angioplasty implant and graft (ICD-10) Failed CABG (coronary artery bypass graft) ?T82.218A - Other mechanical complication of coronary artery bypass graft, initial encounter (ICD-10) Social History (Updated 10/22/23 @ 01:16 by Amena Park MD) Narrative: Patient lives alone in [place]. Former smoker. She does not drink alcohol. 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 Requests Full Code status What is your current living situation?: I presently have a place to live Problems where you live: no known problems Problems where you live details: NA In the past 12 months, utilities in danger of being shut off: no In past 12 months, lack of transportation kept you from medical appts, meetings, work, or getting things needed for daily living: no In the past 12 mos, have been you worried that your food would run out before you had money to buy more?: never true In the past 12 mos, the food you bought just didn't last and you didn't have money to buy more?: never true Highest level of school completed/degree received: some college, no degree Smoking Status: Former smoker What tobacco products do you use: cigarettes Smoking quit date/years: >15 years ago Do you use any of these nicotine containing products: None Second hand tobacco smoke exposure: Yes How often do you have a drink containing alcohol: never How often do you have six or more drinks on one occasion: Never AUDIT-C Alcohol total score: 0 Non-prescribed substance use: denies use Caffeine: Yes How often does anyone, including family, friends and others, physically hurt you : never How often does anyone, including family, friends and others, insult or talk down to you: never How often does anyone, including family, friends and others, threaten you with harm: never How often does anyone, including family, friends and others, scream or curse at you: never service: No Exam Narrative Exam Narrative: Constitutional: Appears well-developed and well-nourished. Alert. Anxious. Skin is pink, warm, dry. No diaphoresis or mottling. Her friend is attentively at her side. HENT: Head: Atraumatic. Nose: Nose normal. Mouth/Throat: Oral mucosa is clear and moist. no trismus. Pharynx normal. Tonsils symmetric. No tonsillar enlargement, erythema, or exudate. Eyes: Conjunctivae normal. EOM normal. Pupils equal, round, and reactive to light. No scleral icterus. Neck: Normal range of motion. Neck supple. No tracheal deviation present. No JVD Cardiovascular: Normal rate, regular rhythm. No gallop. No friction rub. No murmur heard. Symmetric radial and PT artery pulses Pulmonary/Chest: Effort normal. No stridor. No respiratory distress. Bilateral wheezes. No rales. No rhonchi . No tenderness. Abdominal: Soft. No distension. No mass. No tenderness. No rebound. No guarding. Musculoskeletal: RUE: Normal range of motion. No tenderness. No deformity LUE: Normal range of motion. No tenderness. No deformity RLE: Normal range of motion. No edema. No tenderness. No deformity LLE: Normal range of motion. No edema. No tenderness. No deformity Neurological: Alert and oriented to person, place, and time. Normal strength. CN II-VII intact. No sensory deficit. GCS eye subscore is 4. GCS verbal subscore is 5. GCS motor subscore is 6. Normal coordination Skin: Skin is warm and dry. No rash noted. No pallor. Normal capillary refill. Psychiatric: Anxious, at times tearful. At times have or almost seems to have recent thoughts and she cycles rapidly from 1 concern to the next. Overall she is reassured able and once she calms down a bit she is much more conversant. Const Vital Signs, click to edit/add: Vital Signs - 24 hr 03/25/24 16:36 03/25/24 17:06 03/25/24 17:07 Temperature 97.0 F L Pulse Rate 74 71 Pulse Rate [Pulse Oximeter] 76 Respiratory Rate 22 Blood Pressure 133/71 Blood Pressure [Right Upper Arm] 153/79 H Pulse Oximetry 95 96 97 Oxygen Delivery Method Room Air 03/25/24 17:30 Temperature Pulse Rate 70 Pulse Rate [Pulse Oximeter] Respiratory Rate Blood Pressure Blood Pressure [Right Upper Arm] Pulse Oximetry 94 Oxygen Delivery Method Course Vital Signs Vital signs: Initial Vital Signs Temperature 97.0 F L 03/25/24 16:36 Temperature Source Temporal Artery Scan 03/25/24 16:36 Pulse Rate 76 03/25/24 16:36 Respiratory Rate 22 03/25/24 16:36 Blood Pressure 153/79 H 03/25/24 16:36 Blood Pressure Mean 103 03/25/24 16:36 Blood Pressure Position Sitting 03/25/24 16:36 Pulse Oximetry 95 03/25/24 16:36 Oxygen Delivery Method Room Air 03/25/24 16:36 Vital Signs Temperature 97.0 F L 03/25/24 16:36 Pulse Rate 76 03/25/24 16:36 Respiratory Rate 22 03/25/24 16:36 Blood Pressure 153/79 H 03/25/24 16:36 Pulse Oximetry 95 03/25/24 16:36 Oxygen Delivery Method Room Air 03/25/24 16:36 Temperature 97.0 F L 03/25/24 16:36 Pulse Rate 70 03/25/24 17:30 Respiratory Rate 22 03/25/24 16:36 Blood Pressure 133/71 03/25/24 17:07 Pulse Oximetry 94 03/25/24 17:30 Oxygen Delivery Method Room Air 03/25/24 16:36 Medications Administered Medications: Discontinued Medications Generic Name Dose Route Start Last Admin Trade Name Kanwal POWELL Reason Stop Dose Admin Albuterol/Ipratropium 1 neb 03/25/24 17:06 03/25/24 17:15 Iprat-Albut 0.5-2.5 Mg/3 Ml Neb IH 03/25/24 17:07 1 neb ONCE ONE Administration Diazepam 10 mg 03/25/24 17:06 03/25/24 17:20 Diazepam 5 Mg/Ml Inj IV 03/25/24 17:07 10 mg ONCE ONE Administration Methylprednisolone Sodium Succinate 125 mg 03/25/24 17:06 03/25/24 17:25 Methylprednisolone Sod Succ 62.5 Mg/Ml (125) IVP 03/25/24 17:07 125 mg ONCE ONE Administration MDM - Chest Pain MDM Narrative Medical decision making narrative: 64-year-old female with a very complex past history presents to the ER today with multiple symptoms including anxiety, chest pain, shortness of breath, cough. 1. Psych. Patient has history of law all long-term anxiety, PTSD, personality disorder. It sounds like her doctor has been trying to wean her off benzos and had tried to stay so switched to a labs being but that is causing 6 potential side effects with cough so she is now weaning off that as well. Does not sound like there is any plan to replace her align speed with other anxiolytics. She was clearly tearful, anxious and having a panic attack when she arrived. Treated with IV diazepam. The would recommend outpatient follow-up with her doctor to re-evaluate her meds. Will try a short course of at a for anxiety. She will need to follow up with primary care for further medications. We cannot give more prescriptions for benzos through the ER. 2. Cardiac. As a known history of coronary disease with multiple recent stents. Shoaib is not sure for recent episodes of chest pain are angina or if they are related to anxiety. No clear exertional component or improvement with rest. Sounds like many of her episodes of actually happen while she is resting. Nonetheless consider possible ACS. EKG shows no ST segment elevation or depression. T-wave inversions in V1-V2 are similar to prior. Most recent episode of started about 1:00 p.m. today, 4 hours prior to arrival. Initial troponinis normal 2 hour delta troponin is also undetectable. Consider possible CHF. N terminal proBNP level is normal. She does not have any peripheral edema. 3. Pulmonary. Also has a history of COPD, tobacco use, history of COVID. She has a recent cough. She had a chest x-ray in the doctor's office a few days ago that was reportedly clear. She lungs were wheezy when she arrived here. We treated with bronchodilators and corticosteroids. VBG shows no evidence for carbon dioxide retention. Treated with serial nebs here in the ER as well as IV steroids. She says her wheezing is feeling better. I have concern because on serial oxygen checks she was developing hypoxia. Initially sats were in the 90s. She did drift down into the high 80s and was intermittently in the mid 80s . However this may also correlate to benzodiazepines which were given for her anxiety/panic attack. My recommendation was that we hospitalize for observation to treat for COPD, keep her on oxygen to avoid hypoxia. However she is refusing. She adamantly wants to go home. She says she named normally gets hypoxic at night which she sleeps so she has home oxygen available. This should help protect her from hypoxia at home. Although it is not my recommendation we will discharge her home. Will treat her with a course of steroids. She will use her nebulizer every 4 hours as needed. She will continue on Azithromycin as prescribed by her primary since her white count is declining. However I do not see any obvious pneumonia on her chest x-ray. The with her recent cough and shortness of breath consider possible recurrent COVID. COVID swab is negative Consider PE. D-dimer is less than 0.5 which is reassuring. Overall patient is low risk for PE so normal D-dimer is sufficient to rule out PE without CT imaging. Chest x-ray is obtained and shows no evidence for pneumonia by my read. Of note, the patient was very eager for discharge and would not wait for formal radiology interpretation. She understands the risks of discharge and the risks of hypoxia. Precautions for return to the ER reviewed. He for close outpatient follow-up discussed. Questions answered to the best my ability. Lab Data Labs: Lab Results 03/25/24 03/25/24 03/25/24 Range/Units 17:30 17:30 17:30 WBC 14.12 H (4.50-11.00) K/uL RBC 4.04 (4.00-5.20) m/uL Hgb 12.3 (12.0-16.0) gm/dL Hct 37.7 (33.0-51.0) % MCV 93 (80-100) fL MCH 30 (26-34) pg MCHC 33 (32-36) gm/dL RDW Coeff of Renetta 12.6 (11.5-15.5) % Plt Count 264 (140-440) K/uL Neut % (Auto) 74.6 H (42.0-72.0) % Lymph % (Auto) 16.8 L (20-44) % [place] % (Auto) 7.7 (0.0-11.0) % Eos % (Auto) 0.1 (0.0-7.0) % Baso % (Auto) 0.4 (0.0-3.0) % Neut # (Auto) 10.50 H (1.7-7.0) K/uL Lymph # (Auto) 2.40 (0.90-2.90) K/uL [place] # (Auto) 1.10 H (0.00-0.90) K/UL Eos # (Auto) 0.00 (0.00-0.50) K/uL Baso # (Auto) 0.10 (0.00-0.30) K/uL Abs Immat Gran (auto) 0.10 (0.00-0.30) K/uL Imm/Tot Granulo (auto) 0.4 % D-Dimer Quant (PE/DVT) 0.42 (0.00-0.50) ug/ml VBG pH 7.379 Cancelled (7.32-7.43) VBG pCO2 55 H Cancelled (40-50) mmHG VBG pO2 35.4 (25-47) mmHG VBG HCO3 (21-28) mmol/L Sodium (135-149) mmol/L Potassium (3.6-5.1) mmol/L Chloride (96-114) mmol/L Carbon Dioxide (20-32) mmol/L Anion Gap (7-15) mEq/L BUN (7-30) mg/dL Creatinine (0.5-1.5) mg/dL Estimated Creat Clear Estimated GFR ml/min Glucose (60-115) mg/dL Lactate (0.5-1.9) mmol/L Calcium (8.4-10.6) mg/dL NT-Pro-B Natriuret Pep pg/mL Procalcitonin (<0.50) ng/mL SARS-CoV-2 (PCR) (Negative) Influenza Type A (PCR) (Negative) Influenza Type B (PCR) (Negative) RSV (PCR) (Negative) POC Troponin I (0.01-0.04) ng/ml 03/25/24 03/25/24 03/25/24 Range/Units 17:30 17:30 19:35 WBC (4.50-11.00) K/uL RBC (4.00-5.20) m/uL Hgb (12.0-16.0) gm/dL Hct (33.0-51.0) % MCV (80-100) fL MCH (26-34) pg MCHC (32-36) gm/dL RDW Coeff of Renetta (11.5-15.5) % Plt Count (140-440) K/uL Neut % (Auto) (42.0-72.0) % Lymph % (Auto) (20-44) % [place] % (Auto) (0.0-11.0) % Eos % (Auto) (0.0-7.0) % Baso % (Auto) (0.0-3.0) % Neut # (Auto) (1.7-7.0) K/uL Lymph # (Auto) (0.90-2.90) K/uL [place] # (Auto) (0.00-0.90) K/UL Eos # (Auto) (0.00-0.50) K/uL Baso # (Auto) (0.00-0.30) K/uL Abs Immat Gran (auto) (0.00-0.30) K/uL Imm/Tot Granulo (auto) % D-Dimer Quant (PE/DVT) (0.00-0.50) ug/ml VBG pH (7.32-7.43) VBG pCO2 (40-50) mmHG VBG pO2 Cancelled (25-47) mmHG VBG HCO3 33 H Cancelled (21-28) mmol/L Sodium 128 L (135-149) mmol/L Potassium 4.5 (3.6-5.1) mmol/L Chloride 93 L (96-114) mmol/L Carbon Dioxide 30 (20-32) mmol/L Anion Gap 5 L (7-15) mEq/L BUN 11 (7-30) mg/dL Creatinine 0.6 (0.5-1.5) mg/dL Estimated Creat Clear 48.43 Estimated GFR 100 ml/min Glucose 135 H (60-115) mg/dL Lactate 1.2 (0.5-1.9) mmol/L Calcium 8.9 (8.4-10.6) mg/dL NT-Pro-B Natriuret Pep 354 pg/mL Procalcitonin < 0.03 L (<0.50) ng/mL SARS-CoV-2 (PCR) Negative SARS-CoV-2 (Negative) Influenza Type A (PCR) Negative PCR FLU A (Negative) Influenza Type B (PCR) Negative PCR FLU B (Negative) RSV (PCR) Negative PCR RSV (Negative) POC Troponin I 0.00 L 0.00 L (0.01-0.04) ng/ml ECG Data Attestation: I personally reviewed and interpreted this ECG as follows: Interpretation: Normal sinus rhythm Rate: 72 MT: 128 QRS axis: Normal axis. No pathologic Q-waves. ST segment/T wave: T-wave inversion V1, V2. No ST segment elevation depression. QTc: 411 T-wave inversions today are similar to but less prominent than T-wave inversions from EKG 10/25/2023. No other new findings. Discharge Plan Discharge Clinical Impression: Anxiety COPD (chronic obstructive pulmonary disease) Qualifiers: COPD type: unspecified COPD Qualified Code(s): J44.9 - Chronic obstructive pulmonary disease, unspecified Patient Disposition: Home, Self-Care Condition: Stable Instructions: COPD (Chronic Obstructive Pulmonary Disease) (DC), Anxiety (ED) Additional Instructions: As we discussed, come back to the ER right away if you have any worsening symptoms such as trouble breathing, chest pain, cough. To treat COPD use your nebulizer every 4 hours as needed and use her steroids once every day. Takes your next dose of prednisone tomorrow morning. Continue on your antibiotic. (although, I do not see pneumonia on your chest x- ray today) Please follow-up with your regular doctor within the next 1-2 days to talk about your anxiety. You can use the anxiety medicine over the short term to help manage symptoms. However the ER cannot give more prescriptions for Ativan or other benzodiazepines. Prescriptions: No Action ipratropium-albuterol 0.5 mg-3 mg(2.5 mg base)/3 mL solution for nebulization 3 ml inhalation Q6H PRN aspirin 81 mg tablet,chewable 81 mg PO DAILY naloxone 4 mg/actuation spray,non-aerosol 4 mg intranasal Q2-3M PRN Rx Instructions: spray 1 dose into ONE nostril; alternate nostrils w each dose until help arrives sennosides-docusate sodium 8.6-50 mg tablet 2 tab PO BID levothyroxine [Synthroid] 50 mcg tablet 50 mcg PO DAILY rosuvastatin [Crestor] 20 mg tablet 20 mg PO HS clopidogrel [Plavix] 75 mg tablet 75 mg PO DAILY nitroglycerin [Nitrostat] 0.4 mg tablet, sublingual 0.4 mg sublingual Q5M Rx Instructions: do not exceed 3 doses per episode ezetimibe [Zetia] 10 mg tablet 10 mg PO DAILY isosorbide mononitrate 60 mg tablet extended release 24 hr 120 mg PO DAILY magnesium oxide 400 mg magnesium capsule 400 mg PO DAILY Nasal [place] (sodium chloride) 0.65 % aerosol,spray 2 spray intranasal Q2H PRN meclizine 25 mg tablet 25 mg PO TID PRN metoprolol succinate 50 mg tablet extended release 24 hr 50 mg PO DAILY ondansetron HCl 4 mg tablet 4 mg PO Q8H PRN acetaminophen 500 mg tablet 1,000 mg PO TID PRN alprazolam 0.5 mg tablet extended release 24 hr 0.5 mg PO Q12H baclofen 10 mg tablet 10 mg PO BID cetirizine 10 mg tablet 10 mg PO DAILY methocarbamol 750 mg tablet 750 mg PO HS Trelegy Ellipta 100-62.5-25 mcg blister with device 1 ea inhalation DAILY mirtazapine 45 mg tablet 45 mg PO HS omega 5-ozi-qkk-fish oil [Fish Oil] 1,000 mg (120 mg-180 mg) capsule 1 cap PO HS omeprazole 20 mg capsule,delayed release(DR/EC) 20 mg PO DAILY tizanidine 4 mg tablet 4 mg PO Q6H PRN Spiriva Respimat 2.5 mcg/actuation mist 2 puff inhalation DAILY topiramate [Topamax] 25 mg tablet 25 mg PO DAILY venlafaxine 75 mg capsule,extended release 24hr 225 mg PO DAILY torsemide 20 mg tablet 20 mg PO DAILY buprenorphine HCl 2 mg Tablet, Sublingual 2 mg sublingual BID Qty: 60 0RF prednisone 10 mg tablet 10 mg PO DIRECTED 13 Days Qty: 13 0RF Rx Instructions: 3 tabs daily x3d, then 2 tabs daily x3d, then 1 tab daily x7d albuterol sulfate 90 mcg/actuation HFA aerosol inhaler 2 puff INHALATION Q4H PRN potassium chloride 20 mEq tablet,ER particles/crystals 40 meq PO DAILY Qty: 60 0RF Jardiance 25 mg tablet 25 mg PO DAILY Follow Up/Referrals: Moreno Dill MD [Primary Care Provider] - Stand Alone Forms: [facility] Info Instructions
[2024-03-25 17:06] VITALS: PULSE 74; O2SAT 96
[2024-03-25 17:07] VITALS: BP 133/71; PULSE 71; O2SAT 97
[2024-03-25] MEDS: IPRAT-ALBUT 0.5-2.5 MG/3 ML NEB 1 NEB IH (17:15)
[2024-03-25] MEDS: diazePAM 5 MG/ML inj 10 MG IV (17:20)
--- OUTSIDE RECORDS SUMMARY | 2024-03-25 17:20 | XMS_ITS | Continuity of Care Document ---
Author Name [facility] Organization [facility] Care Team Providers Care Procurement Cost Coordinator Name Role Phone [facility] Unavailable Unavailable Medications Combined list of outpatient medications from Department of Defense and Veterans Affairs facilities.Medications provided include 1) outpatient medications from the last 15 months, and 2) patient-reported medications. Medication Details Route Status Patient Instructions Prescription Expires Prescription Number Last Dispense Date Ordering Provider Order Date Order Qty Source Alprazolam ([employer] Aquafadas) 100 TABLET in 1 BOTTLE Active [id number] 11/27/19 2 4 2023 30 Pharmac y Data Transac tion Service Facilit y ALPRAZOLAM ER (ALPRAZOLAM ), 0.5 MG, TAB ER 24H, ORAL, [facility] [facility], 60 ea. BOTTLE Active [id number] 4 2023 30 Pharmac y Data Transac tion Service Facilit y ALPRAZOLAM ER (ALPRAZOLAM ), 0.5 MG, TAB ER 24H, ORAL, [facility] [facility], 60 ea. BOTTLE Cancele d [id number] : 2023 0 Pharmac y Data Transac tion Service Facilit y ALPRAZOLAM ER (ALPRAZOLAM ), 0.5 MG, TAB ER 24H, ORAL, [facility] [facility], 60 ea. BOTTLE Cancele d [id number] : 2023 0 Pharmac y Data Transac tion Service Facilit y ALPRAZOLAM ER (ALPRAZOLAM ), 0.5 MG, TAB ER 24H, ORAL, [facility] [facility], 60 ea. BOTTLE Active [id number] 4 2023 60 Pharmac y Data Transac tion Service Facilit y ALPRAZOLAM ER (ALPRAZOLAM ), 0.5 MG, TAB ER 24H, ORAL, [facility] [facility], 60 ea. BOTTLE Active [id number] 4 2023 60 Pharmac y Data Transac tion Service Facilit y ALPRAZOLAM ER (ALPRAZOLAM ), 0.5 MG, TAB ER 24H, ORAL, [facility] [facility], 60 ea. BOTTLE Active [id number] 2023 60 Pharmac y Data Transac tion Service Facilit y ALPRAZOLAM ER (ALPRAZOLAM ), 0.5 MG, TAB ER 24H, ORAL, [facility], 60 ea. BOTTLE Active [id number] 4 2023 60 Pharmac y Data Transac tion Service Facilit y AZITHROMYCI N (azithromyc in), 250 MG, TABLET, ORAL, SANDOZ, 30 ea. BOTTLE Active [id number] 4 2023 6 Pharmac y Data Transac tion Service Facilit y BUPRENORPHI NE HCL (BUPRENORPH INE HCL), 2 MG, TAB SUBL, SUBLINGUAL, [facility]., 30 ea. BOTTLE Cancele d [id number] : 2023 0 Pharmac y Data Transac tion Service Facilit y BUPRENORPHI NE HCL (BUPRENORPH INE HCL), 2 MG, TAB SUBL, SUBLINGUAL, [facility]., 30 ea. BOTTLE Active [id number] 4 2023 150 Pharmac y Data Transac tion Service Facilit y BUPRENORPHI NE HCL (BUPRENORPH INE HCL), 2 MG, TAB SUBL, SUBLINGUAL, [facility]., 30 ea. BOTTLE Active [id number] 4 2023 30 Pharmac y Data Transac tion Service Facilit y BUPRENORPHI NE HCL (BUPRENORPH INE HCL), 2 MG, TAB SUBL, SUBLINGUAL, [facility]., 30 ea. BOTTLE Cancele d [id number] : 2023 0 Pharmac y Data Transac tion Service Facilit y BUPRENORPHI NE HCL (BUPRENORPH INE HCL), 2 MG, TAB SUBL, SUBLINGUAL, [facility] 30 ea. BOTTLE Cancele d [id number] : 2023 0 Pharmac y Data Transac tion Service Facilit y BUPRENORPHI NE HCL (BUPRENORPH INE HCL), 2 MG, TAB SUBL, SUBLINGUAL, [facility]., 30 ea. BOTTLE Active [id number] 4 2023 180 Pharmac y Data Transac tion Service Facilit y BUPRENORPHI NE HCL (BUPRENORPH INE HCL), 2 MG, TAB SUBL, SUBLINGUAL, [facility]., 30 ea. BOTTLE Cancele d [id number] : 2023 0 Pharmac y Data Transac tion Service Facilit y BUPRENORPHI NE HCL (BUPRENORPH INE HCL), 2 MG, TAB SUBL, SUBLINGUAL, [facility]., 30 ea. BOTTLE Cancele d [id number] : 2023 0 Pharmac y Data Transac tion Service Facilit y BUPRENORPHI NE HCL (BUPRENORPH INE HCL), 2 MG, TAB SUBL, SUBLINGUAL, [facility]., 30 ea. BOTTLE Cancele d [id number] : 2023 0 Pharmac y Data Transac tion Service Facilit y BUPRENORPHI NE HCL (BUPRENORPH INE HCL), 2 MG, TAB SUBL, SUBLINGUAL, [facility] 30 ea. BOTTLE Active [id number] 4 2023 157 Pharmac y Data Transac tion Service Facilit y BUPRENORPHI NE HCL (BUPRENORPH INE HCL), 2 MG, TAB SUBL, SUBLINGUAL, [facility]., 30 ea. BOTTLE Cancele d [id number] : 2023 0 Pharmac y Data Transac tion Service Facilit y BUPRENORPHI NE HCL (BUPRENORPH INE HCL), 2 MG, TAB SUBL, SUBLINGUAL, [facility] 30 ea. BOTTLE Active [id number] 4 2023 72 Pharmac y Data Transac tion Service Facilit y CEPHALEXIN (CEPHALEXIN MONOHYDRATE ), 500 MG, CAPSULE, ORAL, [facility], 100 ea. BOTTLE Active [id number] 2023 28 Pharmac y Data Transac tion Service Facilit y CLONAZEPAM (clonazepam ), 0.5 MG, TABLET, ORAL, [facility], 100 ea. BOTTLE Cancele d [id number] : 2023 0 Pharmac y Data Transac tion Service Facilit y CLOPIDOGREL (CLOPIDOGRE L BISULFATE), 75 MG, TABLET, ORAL, 'S LAB, 90 ea. BOTTLE Active [id number] 2023 90 Pharmac y Data Transac tion Service Facilit y DESVENLAFAX INE SUCCINATE ER (desvenlafa xine succinate), 50 MG, TAB ER 24H, ORAL, [facility] [employer] [facility], 30 ea. BOTTLE Active [id number] 2023 30 Pharmac y Data Transac tion Service Facilit y EZETIMIBE (ezetimibe) , 10 MG, TABLET, ORAL, [facility], 30 ea. BOTTLE Active [id number] 2023 90 Pharmac y Data Transac tion Service Facilit y EZETIMIBE (ezetimibe) , 10 MG, TABLET, ORAL, [facility], 90 ea. BOTTLE Active [id number] 4 2023 90 Pharmac y Data Transac tion Service Facilit y IPRATROPIUM -ALBUTEROL (IPRATROPIU M/ALBUTEROL SULFATE), 0.5-3MG/3, AMPUL-NEB, INHALATION, [employer] 3 ml VIAL Cancele d [id number] : 2023 0 Pharmac y Data Transac tion Service Facilit y IPRATROPIUM -ALBUTEROL (IPRATROPIU M/ALBUTEROL SULFATE), 0.5-3MG/3, AMPUL-NEB, INHALATION, F[employer]ING [employer] 3 ml VIAL Active [id number] 2023 180 Pharmac y Data Transac tion Service Facilit y IPRATROPIUM -ALBUTEROL (IPRATROPIU M/ALBUTEROL SULFATE), 0.5-3MG/3, AMPUL-NEB, INHALATION, [facility] [employer] 3 ml VIAL Cancele d [id number] : 2023 0 Pharmac y Data Transac tion Service Facilit y IPRATROPIUM -ALBUTEROL (IPRATROPIU M/ALBUTEROL SULFATE), 0.5-3MG/3, AMPUL-NEB, INHALATION, [employer] 3 ml VIAL Active [id number] 2023 180 Pharmac y Data Transac tion Service Facilit y IPRATROPIUM -ALBUTEROL (IPRATROPIU M/ALBUTEROL SULFATE), 0.5-3MG/3, AMPUL-NEB, INHALATION, [facility] [employer] 3 ml VIAL Active [id number] 2023 90 Pharmac y Data Transac tion Service Facilit y ISOSORBIDE MONONITRATE ER (isosorbide mononitrate ), 60 MG, TAB ER 24H, ORAL, [facility], 100 ea. BOTTLE Active [id number] 4 2023 180 Pharmac y Data Transac tion Service Facilit y ISOSORBIDE MONONITRATE ER (isosorbide mononitrate ), 60 MG, TAB ER 24H, ORAL, [facility], 100 ea. BOTTLE Active [id number] 2023 180 Pharmac y Data Transac tion Service Facilit y JARDIANCE (EMPAGLIFLO ZIN), 25 MG, TABLET, ORAL, [employer]G., 30 ea. BOTTLE Cancele d [id number] : 2023 0 Pharmac y Data Transac tion Service Facilit y JARDIANCE (EMPAGLIFLO ZIN), 25 MG, TABLET, ORAL, [employer] ING., 30 ea. BOTTLE Cancele d [id number] : 2023 0 Pharmac y Data Transac tion Service Facilit y JARDIANCE (EMPAGLIFLO ZIN), 25 MG, TABLET, ORAL, [employer]., 30 ea. BOTTLE Cancele d [id number] : 2023 0 Pharmac y Data Transac tion Service Facilit y JARDIANCE (EMPAGLIFLO ZIN), 25 MG, TABLET, ORAL, [employer] [facility]., 30 ea. BOTTLE Cancele d [id number] : 2023 0 Pharmac y Data Transac tion Service Facilit y JARDIANCE (EMPAGLIFLO ZIN), 25 MG, TABLET, ORAL, [employer] [facility]., 30 ea. BOTTLE Active [id number] 2022 30 Pharmac y Data Transac tion Service Facilit y JARDIANCE (EMPAGLIFLO ZIN), 25 MG, TABLET, ORAL, [employer] ING., 30 ea. BOTTLE Active [id number] 2023 30 Pharmac y Data Transac tion Service Facilit y JARDIANCE (EMPAGLIFLO ZIN), 25 MG, TABLET, ORAL, [employer] ING., 30 ea. BOTTLE Active [id number] 2023 30 Pharmac y Data Transac tion Service Facilit y JARDIANCE (EMPAGLIFLO ZIN), 25 MG, TABLET, ORAL, [employer]EHRINGER ING., 30 ea. BOTTLE Active [id number] 2023 30 Pharmac y Data Transac tion Service Facilit y LEVOFLOXACI N (LEVOFLOXAC IN), 750 MG, TABLET, ORAL, 'S LAB, 30 ea. BOTTLE Active [id number] 2023 5 Pharmac y Data Transac tion Service Facilit y LEVOTHYROXI NE SODIUM (levothyrox ine sodium), 50 MCG, TABLET, ORAL, [facility]UPIN [facility]ACE[facility], 100 ea. BOTTLE Active [id number] 4 2023 90 Pharmac y Data Transac tion Service Facilit y LEVOTHYROXI NE SODIUM (levothyrox ine sodium), 50 MCG, TABLET, ORAL, LUPIN PHARMACEU, 100 ea. BOTTLE Active [id number] 2023 30 Pharmac y Data Transac tion Service Facilit y LEVOTHYROXI NE SODIUM (levothyrox ine sodium), 50 MCG, TABLET, ORAL, LUPIN PHARMACEU, 100 ea. BOTTLE Active [id number] 2023 90 Pharmac y Data Transac tion Service Facilit y METOPROLOL SUCCINATE (metoprolol succinate), 50 MG, TAB ER 24H, ORAL, [facility] [employer] [facility], 100 ea. BOTTLE Active [id number] 2023 90 Pharmac y Data Transac tion Service Facilit y METOPROLOL SUCCINATE (metoprolol succinate), 50 MG, TAB ER 24H, ORAL, [facility] [employer] [facility], 100 ea. BOTTLE Active [id number] 2023 90 Pharmac y Data Transac tion Service Facilit y MIRTAZAPINE (MIRTAZAPIN E), 30 MG, TABLET, ORAL, [facility], 30 ea. BOTTLE Active [id number] 2023 45 Pharmac y Data Transac tion Service Facilit y MIRTAZAPINE (MIRTAZAPIN E), 30 MG, TABLET, ORAL, [facility], 30 ea. BOTTLE Cancele d [id number] : 2023 0 Pharmac y Data Transac tion Service Facilit y MIRTAZAPINE (MIRTAZAPIN E), 30 MG, TABLET, ORAL, [facility], 30 ea. BOTTLE Cancele d [id number] : 2023 0 Pharmac y Data Transac tion Service Facilit y MIRTAZAPINE (MIRTAZAPIN E), 30 MG, TABLET, ORAL, [facility], 30 ea. BOTTLE Active [id number] 2023 30 Pharmac y Data Transac tion Service Facilit y MIRTAZAPINE (MIRTAZAPIN E), 45 MG, TABLET, ORAL, [facility] [facility], 30 ea. BOTTLE Active [id number] 2023 30 Pharmac y Data Transac tion Service Facilit y MIRTAZAPINE (MIRTAZAPIN E), 45 MG, TABLET, ORAL, [facility], 30 ea. BOTTLE Active [id number] 2023 30 Pharmac y Data Transac tion Service Facilit y MIRTAZAPINE (MIRTAZAPIN E), 45 MG, TABLET, ORAL, [facility], 30 ea. BOTTLE Active [id number] 2023 30 Pharmac y Data Transac tion Service Facilit y MIRTAZAPINE (MIRTAZAPIN E), 45 MG, TABLET, ORAL, [facility], 30 ea. BOTTLE Active [id number] 2023 30 Pharmac y Data Transac tion Service Facilit y OLANZAPINE (OLANZAPINE ), 2.5 MG, TABLET, ORAL, 'S LAB, 30 ea. BOTTLE Active [id number] 2023 90 Pharmac y Data Transac tion Service Facilit y OLANZAPINE (OLANZAPINE ), 2.5 MG, TABLET, ORAL, 'S LAB, 30 ea. BOTTLE Active [id number] 2023 90 Pharmac y Data Transac tion Service Facilit y OLANZAPINE (OLANZAPINE ), 2.5 MG, TABLET, ORAL, 'S LAB, 30 ea. BOTTLE Cancele d [id number] : 2023 0 Pharmac y Data Transac tion Service Facilit y OLANZAPINE (OLANZAPINE ), 2.5 MG, TABLET, ORAL, 'S LAB, 30 ea. BOTTLE Active [id number] 2023 60 Pharmac y Data Transac tion Service Facilit y OLANZAPINE (OLANZAPINE ), 2.5 MG, TABLET, ORAL, 'S LAB, 30 ea. BOTTLE Active [id number] 2023 60 Pharmac y Data Transac tion Service Facilit y OMEPRAZOLE (omeprazole ), 20 MG, CAPSULE SERGO AHN, [employer] [place], 100 ea. BOTTLE Active [id number] 2023 90 Pharmac y Data Transac tion Service Facilit y OMEPRAZOLE (omeprazole ), 20 MG, CAPSULE SERGO AHN, [employer] [place], 100 ea. BOTTLE Active [id number] 2023 90 Pharmac y Data Transac tion Service Facilit y OMEPRAZOLE (omeprazole ), 20 MG, CAPSULE SERGO AHN, [employer] [place], 100 ea. BOTTLE Active [id number] 2023 90 Pharmac y Data Transac tion Service Facilit y ONDANSETRON HCL (ONDANSETRO N HCL), 4MG, TABLET, ORAL, [facility], 30 ea. BOTTLE Active [id number] 2023 20 Pharmac y Data Transac tion Service Facilit y OXYCODONE-A CETAMINOPHE N (oxycodone HCl/acetami nophen), 5 MG-325MG, TABLET, ORAL, [employer], 100 ea. BOTTLE Active [id number] 2023 20 Pharmac y Data Transac tion Service Facilit y PAXLOVID (EUA) (nirmatrelv ir/ritonavi r), 300-100 MG, TAB DS PK, ORAL, [facility] 30 ea. BLIST PACK Active [id number] 2023 30 Pharmac y Data Transac tion Service Facilit y POTASSIUM CHLORIDE (potassium chloride), 20 MEQ, TAB ER PRT, ORAL, UPSHER-KULWANT H LA, 100 ea. BOTTLE Active [id number] 4 2023 180 Pharmac y Data Transac tion Service Facilit y POTASSIUM CHLORIDE (potassium chloride), 20 MEQ, TAB ER PRT, ORAL, UPSHER-KULWANT H LA, 100 ea. BOTTLE Cancele d [id number] : 2022 0 Pharmac y Data Transac tion Service Facilit y PRAZOSIN HCL (prazosin HCl), 1 MG, CAPSULE, ORAL, [facility]ARMA I, 100 ea. BOTTLE Active [id number] 2023 30 Pharmac y Data Transac tion Service Facilit y PRAZOSIN HCL (prazosin HCl), 1 MG, CAPSULE, ORAL, BI[employer] PHARMA I, 100 ea. BOTTLE Active [id number] 2023 30 Pharmac y Data Transac tion Service Facilit y PRAZOSIN HCL (prazosin HCl), 1 MG, CAPSULE, ORAL, BI[employer] PHARMA I, 100 ea. BOTTLE Active [id number] 2023 30 Pharmac y Data Transac tion Service Facilit y PRAZOSIN HCL (prazosin HCl), 2 MG, CAPSULE, ORAL, BIOCON PHARMA I, 100 ea. BOTTLE Active [id number] 2023 30 Pharmac y Data Transac tion Service Facilit y PRAZOSIN HCL (prazosin HCl), 2 MG, CAPSULE, ORAL, BIOCON PHARMA I, 100 ea. BOTTLE Active [id number] 2023 30 Pharmac y Data Transac tion Service Facilit y PRAZOSIN HCL (prazosin HCl), 2 MG, CAPSULE, ORAL, BIOCON PHARMA I, 100 ea. BOTTLE [place] d [id number] : 2023 0 Pharmac y Data Transac tion Service Facilit y PRAZOSIN HCL (prazosin HCl), 2 MG, CAPSULE, ORAL, BI[employer]ON PHARMA I, 100 ea. BOTTLE Active [id number] 2023 90 Pharmac y Data Transac tion Service Facilit y PRAZOSIN HCL (prazosin HCl), 2 MG, CAPSULE, ORAL, BI[employer] PHARMA I, 100 ea. BOTTLE Active [id number] 2023 90 Pharmac y Data Transac tion Service Facilit y PRAZOSIN HCL (prazosin HCl), 5 MG, CAPSULE, ORAL, BI[employer]ON PHARMA I, 100 ea. BOTTLE Active [id number] 2023 30 Pharmac y Data Transac tion Service Facilit y PRAZOSIN HCL (prazosin HCl), 5 MG, CAPSULE, ORAL, BIOCON PHARMA I, 100 ea. BOTTLE Active [id number] 2023 30 Pharmac y Data Transac tion Service Facilit y PRAZOSIN HCL (prazosin HCl), 5 MG, CAPSULE, ORAL, BIOCON PHARMA I, 100 ea. BOTTLE Active [id number] 2023 30 Pharmac y Data Transac tion Service Facilit y PREDNISONE (PREDNISONE ), 10MG, TABLET, ORAL, [facility], 100 ea. BOTTLE Active [id number] 2023 13 Pharmac y Data Transac tion Service Facilit y PREDNISONE (PREDNISONE ), 10MG, TABLET, ORAL, [facility], 100 ea. BOTTLE Active [id number] 2023 30 Pharmac y Data Transac tion Service Facilit y PREDNISONE (PREDNISONE ), 20MG, TABLET, ORAL, [facility], 100 ea. BOTTLE Active [id number] 2023 10 Pharmac y Data Transac tion Service Facilit y RAMELTEON (ramelteon) , 8 MG, TABLET, ORAL, [facility]-KULWANT H LA, 30 ea. BOTTLE Active [id number] 2023 60 Pharmac y Data Transac tion Service Facilit y RAMELTEON (ramelteon) , 8 MG, TABLET, ORAL, UPSHER-KULWANT H LA, 30 ea. BOTTLE Cancele d [id number] : 2023 0 Pharmac y Data Transac tion Service Facilit y RAMELTEON (ramelteon) , 8 MG, TABLET, ORAL, [facility]HER-KULWANT H LA, 30 ea. BOTTLE Active [id number] 2023 60 Pharmac y Data Transac tion Service Facilit y RAMELTEON (ramelteon) , 8 MG, TABLET, ORAL, UPSHER-KULWANT H LA, 30 ea. BOTTLE Active [id number] 2023 30 Pharmac y Data Transac tion Service Facilit y ROSUVASTATI N CALCIUM (rosuvastat in calcium), 20 MG, TABLET, ORAL, [facility]ARMA, 90 ea. BOTTLE Active [id number] 2023 90 Pharmac y Data Transac tion Service Facilit y ROSUVASTATI N CALCIUM (rosuvastat in calcium), 20 MG, TABLET, ORAL, [facility]MARK PHARMA, 90 ea. BOTTLE Active [id number] 2023 90 Pharmac y Data Transac tion Service Facilit y TIZANIDINE HCL (TIZANIDINE HCL), 4MG, TABLET, ORAL, [facility], 150 ea. BOTTLE Active [id number] 2023 90 Pharmac y Data Transac tion Service Facilit y TIZANIDINE HCL (TIZANIDINE HCL), 4MG, TABLET, ORAL, [facility], 150 ea. BOTTLE Active [id number] 2023 90 Pharmac y Data Transac tion Service Facilit y TIZANIDINE HCL (TIZANIDINE HCL), 4MG, TABLET, ORAL, [facility], 150 ea. BOTTLE Active [id number] 2023 90 Pharmac y Data Transac tion Service Facilit y TIZANIDINE HCL (TIZANIDINE HCL), 4MG, TABLET, ORAL, [facility], 150 ea. BOTTLE Active [id number] 2022 90 Pharmac y Data Transac tion Service Facilit y TIZANIDINE HCL (TIZANIDINE HCL), 4MG, TABLET, ORAL, [facility], 150 ea. BOTTLE Active [id number] 2023 90 Pharmac y Data Transac tion Service Facilit y TORSEMIDE (TORSEMIDE) , 20MG, TABLET, ORAL, [facility], 100 ea. BOTTLE Active [id number] 2023 160 Pharmac y Data Transac tion Service Facilit y TRELEGY ELLIPTA (fluticason e furoate/ume clidinium bromide/kylie anterol trifenat), 100-62.5, BLST W/DEV, INHALATION, GLAXOSMITHK LINE, 60 ea. BLIST PACK Active [id number] 2022 180 Pharmac y Data Transac tion Service Facilit y TRELEGY ELLIPTA (fluticason e furoate/ume clidinium bromide/kylie anterol trifenat), 100-62.5, BLST W/DEV, INHALATION, GLAXOSMITHK LINE, 60 ea. BLIST PACK Active [id number] 2023 180 Pharmac y Data Transac tion Service Facilit y TRELEGY ELLIPTA (fluticason e furoate/ume clidinium bromide/kylie anterol trifenat), 100-62.5, BLST W/DEV, INHALATION, GLAXOSMITHK LINE, 60 ea. BLIST PACK Active [id number] 2023 180 Pharmac y Data Transac tion Service Facilit y VENTOLIN HFA (ALBUTEROL SULFATE), 90MCG, HFA AER AD, INHALATION, GLAXOSMITHK LINE, 18 g CANISTER Active [id number] 2023 18 Pharmac y Data Transac tion Service Facilit y VENTOLIN HFA (ALBUTEROL SULFATE), 90MCG, HFA AER AD, INHALATION, GLAXOSMITHK LINE, 18 g CANISTER Active [id number] 4 2023 18 Pharmac y Data Transac tion Service Facilit y VENTOLIN HFA (ALBUTEROL SULFATE), 90MCG, HFA AER AD, INHALATION, GLAXOSMITHK LINE, 18 g CANISTER Active [id number] 4 2023 18 Pharmac y Data Transac tion Service Facilit y VENTOLIN HFA (ALBUTEROL SULFATE), 90MCG, HFA AER AD, INHALATION, GLAXOSMITHK LINE, 18 g CANISTER Active [id number] 4 2023 36 Pharmac y Data Transac tion Service Facilit y Allergies, Adverse Reactions, Alerts Combined list of allergies from Department of Defense and Veterans Affairs facilities. It does not include entries that were removed or entered in error. Substance Category Reaction Severity Reaction type Status Date Reported Comments Source PENICILLIN Propensity to adverse reactions to drug (finding) active 12/26/1995 [facility] PERCOCET Propensity to adverse reactions to drug (finding) active 05/01/1996 [facility] SULFA DRUGS Propensity to adverse reactions to drug (finding) active 04/20/1999 [facility] Immunizations Combined list of available immunizations from the Department of Defense and Veterans Affairs facilities. Immunization Series Date Given Administered By Site Reaction Lot Number CVX Code Drug Rn First Assist Status Comments Source INFLUENZA (HISTORICAL) 1997 YVONNE KHAN 87 complet ed [facility] Social History Combined list of available smoking, tobacco, and other social history from Department of Defense and Veterans Affairs facilities. Social History Type Response Date Comment Sourc e This section is an empty social history section. [facility]
--- OUTSIDE RECORDS SUMMARY | 2024-03-25 17:20 | XMS_ITS | Data Portability ---
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 Lab None record ed. Referral None record ed. Procedures None record ed. Surgeries None record ed. Imaging None record ed. Medication Orders None record ed. Patient TargetsNo targets recorded. Patient Instructions Encounter Date Encounter Id Patient Instructions Last Modified By Organization Details Last Modified Time 04/17/2019 [id number] Discussion: Dear Colleagues: Thank you very much for the referral of above mentioned patient to my office. I do appreciate your trust and referral. Following is my consultation report. Please do not hesitate to call me directly if you have any questions regarding this patient or need assistance to manage the patient. My office can give you my direct cell phone number for further communication. I discussed with the patient the clinical findings and reviewed the findings together. At this time I recommend investigation with cervical myelogram and post myelo CT, since patient had ACDF from the left side, I recommend as well. ENT consultation with evaluation of the vocal cords to rule out any previous cord and nerve injury which would interfere with the right side the approach if needed. Additionally, I recommend consultation with physical medicine and rehabilitation for conservative management including PT and Patient will be provided with the cervical collar , Patient has been advised to wear the brace/collar for 6-8 weeks when riding a car or doing any excessive activities, or specific activities that provoke the pain. Furthermore possibly in the afternoon and when the pain is worse the brace can be worn for comfort and support. We advised the patient not to wear the brace at all times which lead to muscle atrophy. All questions are answered. Thank you for this referral. I appreciate your trust in the referring this patient to me and I will stay in contact with you regarding the progress of this patient. Synopsis: 04/17/19, SALAMANCA, ISC, no new films: Previous ACDF from the left neck pain and possible adjacent segment disease: Cervical myelogram post myelo CT ENT to evaluate vocal cords for possible adjacent segment disease correction with right-sided ACDF, PT, cervical collar, PMNR consultation habbasi Not available 04/17/2019 14:40:47 06/03/2019 [id number] neck pain: care instructions habbasi Not available 06/03/2019 16:16:58 Discussion: Patient is reporting that she has done significant amount of conservative management and pain is persisting with the findings above I do believe most of patient symptoms correspond seated C3-5. Nevertheless, I recommend for their investigation with discogram of post-discogram CT of the CT 3/4/5 and C7/T1/T2 distinguished the pathology before discussing surgical options. I discussed with the patient that she should take the option of the surgery very seriously and proceeded the discogram only if surgery is an option. Additionally, I recommend ENT consultation to evaluate the vocal cords since the patient had previous ACDF from the left All questions are answered. Thank you for this referral. I appreciate your trust in the referring this patient to me and I will stay in contact with you regarding the progress of this patient. 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 Please call pt to schedule an appointment Referring Physician: Kristen Kwong, Neurosurgery, Encounter Date: 04/21/2019 ENT Referral for Neck pain ENT consult for Vocal Cord. Referring Physician: Kristen Kwong, Neurosurgery, Encounter Date: 06/04/2019 Results Created Date Observation Date Name Description Value Unit Range Abnormal Flag LastModifiedBy Organization Detail LastModifiedTime 05/22/[address], cervi kassy spine , post- myelo gram No observ ation record ed. Not Available 05/22/2019 08:58:40 Result Notes None recorded. Problems Name Status Onset Date Resolution Date Notes Provider Name and Address Organization Details Recorded Time Neck pain Active 9 Jeniffer Eric [place], [place] - [facility] 04/21/2019 14:46:52 Problem Notes None recorded. Procedures Surgical History None recorded. Imaging Results Imaging Date Name Status LastModified by Organiz ation Details LastModified Time 05/22/2019 CT, cervical spine, post-myelogra m completed Information not available 05/22/2019 08:58:40 Procedure Notes None recorded. Medical Equipment None Reported. Allergies No known drug allergies Medications Name Sig Start Date Stop Date Status Note LastModified by Organization Details LastModified Time celecoxib 200 mg capsule active Not Available Not Available Not Available cyclobenzaprine 10 mg tablet active Not Available Not Available Not Available tretinoin 0.1 % topical cream active Not Available Not Availabl e Not Available atorvastatin 80 mg tablet active Not Available Not Available No t Available venlafaxine ER 37.5 mg capsule,extended release 24 hr active Not Available Not Availabl e Not Available venlafaxine ER 75 mg capsule,extended release 24 hr active Not Available Not Availabl e Not Available valacyclovir 1 gram tablet active Not Available Not Available Not Available prazosin 1 mg capsule active Not Available Not Available Not Available ondansetron HCl 4 mg tablet active Not Available Not Available No t Available prednisone 20 mg tablet active Not Available Not Available Not Available topiramate 25 mg tablet active Not Available Not Available Not Available clopidogrel 75 mg tablet active Not Available Not Available Not Available prazosin 5 mg capsule active Not Available Not Available Not Available isosorbide mononitrate ER 60 mg tablet,extended release 24 hr active Not Available Not Availabl e Not Available magnesium oxide 400 mg (241.3 mg magnesium) tablet active Not Available Not Avai lable Not Available ascorbic acid (vitamin C) 500 mg tablet active Not Available Not Available No t Available oxycodone-acetami nophen 10 mg-325 mg tablet active Not Available Not Available No t Available trazodone 100 mg tablet active Not Available Not Available Not Available meclizine 25 mg tablet active Not Available Not Available Not Available baclofen 10 mg tablet active Not Available Not Available Not Available benzonatate 100 mg capsule active Not Available Not Available N ot Available lidocaine 5 % topical patch active Not Available Not Availabl e Not Available clonazepam 2 mg tablet active Not Available Not Available Not Available Advair Diskus 250 mcg-50 mcg/dose powder for inhalation active Not Available Not Available N ot Available nitroglycerin 0.4 mg sublingual tablet active Not Available Not Available Not Available furosemide 20 mg tablet active Not Available Not Available Not Available Microlet Lancet active Not Available N ot Available Not Available Ventolin HFA 90 mcg/actuation aerosol inhaler active Not Available Not Availa ble Not Available metaxalone 800 mg tablet active Not Available Not Available Not Available bupropion HCl XL 150 mg 24 hr tablet, extended release active Not Available Not Available Not Available oxycodone 20 mg tablet active Not Available Not Available Not Available oxycodone 10 mg tablet active Not Available Not Available Not Available venlafaxine ER 225 mg tablet,extended release 24 hr active Not Available Not Availabl e Not Available Contour Next Test Strips active Not Available Not Available Not Available OxyContin 30 mg tablet,crush resistant,extende d release active Not Available Not Available No t Available Belbuca 300 mcg buccal film active Not Available Not Available Not Available Narcan 4 mg/actuation nasal spray active Not Available Not Available Not Available Vitals Date Recorded Body height Heart rate Body mass index (BMI) Body weight Oxygen saturation Oxygen saturation in Arterial blood by Pulse oximetry Systolic blood pressure Diastolic blood pressure Provider Name and Address Organization Details Last Updated DateTime 9 162.56 cm 92 /min 28 kg/m2 12692.5 6 g 96 % 96 % 138 mm[Hg] 75 mm[Hg] Jeniffer Reyes [place] - [facility] 9 13:47:10 Date Recorded Body height Heart rate Body mass index (BMI) Body weight Oxygen saturation Oxygen saturation in Arterial blood by Pulse oximetry Systolic blood pressure Diastolic blood pressure Provider Name and Address Organization Details Last Updated DateTime 9 162.56 cm 81 /min 28.7 kg/m2 92611.9 3 g 95 % 95 % 116 mm[Hg] 72 mm[Hg] Daniel Raymundo [place] - [facility] 9 15:31:43 Social History None recorded. Functional Status None recorded. Mental Status None recorded. Family History Nothing Reported. Medical History No medical history recorded. Gynecological HistoryNo gynecological history recorded. Obstetrics History GPAL:G 0 P 0 0 0 0 Past Encounters Encounter ID Performer Location Encounter Start Date Encounter Closed Date Diagnosis/Indication Diagnosis SNOMED-CT Code [id number] Kristen Kwong MD [facility] [address] [address] 04/17/2019 13:32:59 04/20/2019 09:51:50 [id number] Kristen Kwong MD [facility] [address] [address] 06/03/2019 15:18:05 06/09/2019 13:11:32 Neck pain [id number] Health Concerns Section Related Observation LastModified by Organization Detai ls LastModified Time None Recorded Concern Status LastModified by Organization Details LastModified Time None Recorded Advance Directives Directive None Recorded Payers Encounter Date Sequence Insurance Name Policy Number Policy Cotton Covered Member ID Cotton Member ID Guarantor Name 04/17/2019 2 [employer] [facility] [place] Meg Ehrlicher [id number] Meg Ehrlicher 04/17/2019 1 [employer] (SECONDARY TO MEDICARE) Meg Ehrlicher [id number] Meg Ehrlicher 06/03/2019 2 [employer] [facility] [facility] [place] - [place]) Meg Ehrlicher [id number] Meg Ehrlicher 06/03/2019 1 [employer] (SECONDARY TO MEDICARE) Meg Ehrlicher [id number] Meg Ehrlicher Notes Date Note Type Note Provider Name and Address Organization Details Recorded Time 04/17/2019 text/html HPI Notes: Neck Pain Reported by patient. Location: bilateral Quality: gnawing Severity: pain level 8/10 Neurological Complaints: numbness of the arms; pain in the arms; weakness of the arms Meg MONAHAN 59yo F 1960 #[id number] Chief Complaint: Status post previous ACDF and now neck pain and upper extremity radiculopathy History of Present Illness: Patient had cervical fusion anteriorly, in 2017 and is reporting that she was diagnosed with compression fracture of the lower segments but no further surgery was done, patient is in significant pain. It seems that patient has done significant amount of conservative therapy including physical therapy and injection but the pain has been persisting. She is reporting the pain is 8 of 10 Patient is here to be evaluated and for my neurosurgical opinion. Kristen Kwong MD [address], [place], [address], [employer] 04/17/2019 14:40:54 06/03/2019 text/html HPI Notes: Neck Pain Reported by patient. Location: bilateral Quality: gnawing Severity: pain level 8/10 Neurological Complaints: numbness of the arms; pain in the arms; weakness of the arms Other Associated Symptoms: no swelling; no redness; no warmth; no ecchymosis; no grinding; no fever; no chills; no weight loss Meg MONAHAN 59yo F 1960 #[id number] History Patient is here with the result of the cervical myelogram. Kristen Kwong MD [address], [place], [address], [employer] 06/03/2019 16:17:01 OBGyn Episode No OBEpisode recorded.
--- OUTSIDE RECORDS SUMMARY | 2024-03-25 17:20 | XMS_ITS | Clinical Summary ---
Author Organization [facility] Address [place], [place] [address] Care Team Providers Care Networking Engineer Name Role Phone Moreno Dill MD Primary Care Provider Allergies Active Allergy Reactions Criticality Noted Date Comments Atorvastatin Myalgia,Other - Describe In Comment Field Medium 09/18/2016 Myalgia Buspirone Other - Describe In Comment Field,Rash High 07/24/2019 Possible cause of rash Codeine Itching Medium 09/28/2010 Fentanyl Other - Describe In Comment Field,Respiratory Depression High 04/17/2022 My oxygen went down 02/19- tolerated for angiogram Furosemide Shortness Of Breath,Edema,Dyspnea 06/09/2021 Gabapentin GI Upset,Nausea Only High 08/26/2015 Isopropyl Nicotinate Headache,Rash Low 06/25/2019 Latex Rash Medium 09/28/2010 Metformin Other - Describe In Comment Field Medium 10/06/2020 Nausea, and it made me smell bad. Other reaction(s): GI intolerance Nausea, and it made me smell bad. Niacin Flushing,Headache High 09/18/2016 Olanzapine Shortness Of Breath 03/25/2024 Quetiapine Bronchospasm,Chest Pain,Respiratory Distress,Shortness Of Breath 02/19/2023 Rizatriptan Flushing,Anaphylaxis High 06/24/2019 Rizatriptan Benzoate Other - Describe In Comment Field 09/28/2010 flushing Sumatriptan Anaphylaxis High 09/28/2010 Trazodone Other - Describe In Comment Field High 05/06/2018 Black outs Blacks out Medications Medication Sig Dispensed Refills Start Date End Date Status aspirin chewable 81 mg chewable tabletIndications :CAD in [place] artery Chew 1 Tablet (81 mg) by mouth once daily with a meal. 0 11/09/19 21 Active naloxone (NARCAN) 4 mg/actuation nasal spray if needed Active sennosides-docusa te, 8.6-50 mg, (SENOKOT S) 8.6-50 mg tabletIndications :Uncomplicated opioid dependence (HC) Take 2 Tablets by mouth 2 times daily. 360 Tablet 3 11/24/19 21 Active Additional Information Patient taking differently:2 Tablet OralBEDTIME, Informant: Patient's Recall, Reported on 02/19/2023 sodium chloride (OCEAN) 0.65 % nasal solutionIndicatio ns:Acute on chronic systolic CHF (congestive heart failure) (HC) Inhale 2 Sprays into affected nostril(s) every 2 hours. 44 mL 10/11/19 22 Active Additional Information Patient taking differently:2 Termo NasalBID PRN, Informant: Patient's Recall, Reported on 02/19/2023 oxygen-air delivery systems (HOME OXYGEN)Indication s:COPD exacerbation (HC),Acute on chronic heart failure with preserved ejection fraction (HC) Oxygen for home use. Liters per minute: 3 per nasal cannula. Frequency of use: Continuous with portability.;. Length of need: 99 Months. 1 Each 10/11/19 22 Active Walker - 4 wheelsIndications :Unstable gait For home use. Length of need: 99. With seat. 1 Each 04/17/20 22 Active methocarbamoL (ROBAXIN) 750 mg tablet Take 750 mg by mouth at bedtime. 1 tablet a bedtime 10/10/19 23 Active acetaminophen (Tylenol Extra Strength) 500 mg tablet Take 1,000 mg by mouth 3 times daily if needed. Max acetaminophen dose: 4000mg in 24 hrs. Active CPAPIndications:O SA (obstructive sleep apnea) CPAP machine for home use at pressure 10 cmw, nasal mask x1/3month with nasal cushion x2/mo 08/29/19 24 Active prazosin (MINIPRESS) 2 mg capsuleIndication s:Nightmares Take 3 Capsules (6 mg) by mouth at bedtime. 90 Capsule 2 10/03/19 24 Active calcium citrate-vitamin d 315 mg-200 unit 315 mg-5 mcg (200 unit) tablet Take 1 Tablet by mouth at bedtime. Active tiZANidine (ZANAFLEX) 4 mg tablet Take 4 mg by mouth every 6 hours if needed for Muscle Spasm. 05/08/20 23 Active topiramate (TOPAMAX) 25 mg tablet Take 25 mg by mouth once daily. Active evolocumab (Repatha SureClick) 140 mg/mL subcutaneous pen injectorIndicatio ns:Hyperlipidemia , unspecified hyperlipidemia type Inject 1 mL (140 mg) subcutaneous every 2 weeks. Inject into abdomen, thigh, or upper arm; rotate injection sites. 6 mL 02/19/20 24 Active albuterol HFA (Ventolin HFA) 90 mcg/actuation inhalerIndication s:COPD exacerbation (HC) Inhale 1-2 Puffs by mouth every 4 hours if needed for Shortness Of Breath. 18 g 02/21/20 24 Active albuterol-ipratro pium (DUONEB) (2.5-0.5 mg) in 3 mL NEBULIZATION solutionIndicatio ns:Chronic obstructive pulmonary disease, unspecified COPD type (HC) Inhale 3 mL via a nebulizer every 6 hours if needed for Shortness Of Breath. 225 mL 02/21/20 24 Active blood sugar diagnostic stripIndications: Type 2 diabetes mellitus with other circulatory complication, without long-term current use of insulin (HC) As directed. 100 Each 02/21/20 24 Active cetirizine (ZYRTEC) 10 mg tabletIndications :Allergy, sequela Take 1 Tablet (10 mg) by mouth once daily if needed for Allergy Symptoms. 90 Tablet 3 02/21/20 24 Active clopidogreL (PLAVIX) 75 mg tabletIndications :Coronary artery disease, unspecified vessel or lesion type, unspecified whether angina present, unspecified whether [place] or transplanted heart Take 1 Tablet (75 mg) by mouth once daily in the morning. 90 Tablet 3 02/21/20 24 Active ezetimibe (ZETIA) 10 mg tabletIndications :Hyperlipidemia, unspecified hyperlipidemia type Take 1 Tablet (10 mg) by mouth at bedtime. 30 Tablet 02/21/20 24 Active isosorbide mononitrate (IMDUR) 60 mg extended release tablet 24 hourIndications:C AD in [place] artery Take 2 Tablets (120 mg) by mouth once daily. 60 Tablet 02/21/20 24 Active levothyroxine (SYNTHROID) 50 mcg tabletIndications :Graves' disease Take 1 Tablet (50 mcg) by mouth once daily. 30 Tablet 02/21/20 24 Active magnesium oxide (MAG-OX 400) 400 mg tabletIndications :Low magnesium level Take 1 Tablet (400 mg) by mouth once daily. 90 Tablet 3 02/21/20 24 Active meclizine (ANTIVERT) 25 mg tabletIndications :Vertigo Take 1 Tablet (25 mg) by mouth 3 times daily if needed for Vertigo. 30 Tablet 02/21/20 24 Active metoprolol succinate (TOPROL XL) 50 mg sustained-release tabletIndications :CAD in [place] artery,AP (angina pectoris) (HC),Arterioscler otic heart disease Take 1 Tablet (50 mg) by mouth once daily. 30 Tablet 02/21/20 24 Active mirtazapine (REMERON) 45 mg tabletIndications :Psychophysiologi kassy insomnia,Posttrau matic stress disorder Take 1 Tablet (45 mg) by mouth at bedtime. 90 Tablet 02/21/20 24 Active nitroglycerin (NITROSTAT) 0.4 mg sublingual tabletIndications :CAD in [place] artery Place 1 Tablet (0.4 mg) under the tongue every 5 minutes if needed for Chest Pain. 25 Tablet 2 02/21/20 24 Active omeprazole 20 mg tabletIndications :Chronic GERD Take 1 Tablet (20 mg) by mouth once daily before a meal. 90 Tablet 2 02/21/20 24 Active potassium chloride (KLOR-CON M20) 20 mEq extended-release tablet (part/cryst)Indic ations:Acute on chronic systolic CHF (congestive heart failure) (HC) Take 2 Tablets (40 mEq) by mouth at bedtime. 180 Tablet 2 02/21/20 24 Active ondansetron (ZOFRAN) 4 mg tabletIndications :Nausea Take 1 Tablet (4 mg) by mouth every 8 hours if needed for Nausea/Vomiting. 30 Tablet 1 02/21/20 24 Active rosuvastatin (CRESTOR) 20 mg tabletIndications :Hyperlipidemia, unspecified hyperlipidemia type Take 1 Tablet (20 mg) by mouth at bedtime. 90 Tablet 2 02/21/20 24 Active torsemide (DEMADEX) 20 mg tabletIndications :Acute on chronic heart failure with preserved ejection fraction (HC) Take 1 Tablet (20 mg) by mouth once daily. Second daily dose as needed for increase in leg swelling or shortness of breath. 60 Tablet 02/21/20 24 Active fluticasone fur-umeclidinium- vilanterol (Trelegy Ellipta) 100-62.5-25 mcg inhalerIndication s:Chronic obstructive pulmonary disease, unspecified COPD type (HC) Inhale 1 Puff by mouth once daily. 180 Each 03/20/20 24 Active OLANzapine (ZYPREXA) 2.5 mg tablet Take 5 mg by mouth at bedtime. 03/03/20 24 Active buprenorphine HCL (SUBUTEX) 2 mg sublIndications:P ain Place 2 Tablets (4 mg) under the tongue three times daily before meals. 03/23/20 24 Active bisacodyL (DULCOLAX) 10 mg suppositoryIndica tions:Chronic constipation Insert 1 Suppository (10 mg) rectally once daily if needed (constipation). 30 Suppository 5 03/23/20 24 Active glipiZIDE extended-release (GLUCOTROL XL) 2.5 mg Extended-Release tabletIndications :Type 2 diabetes mellitus with other circulatory complication, without long-term current use of insulin (HC) Take 1 Tablet (2.5 mg) by mouth once daily before a meal. 90 Tablet 1 03/23/20 24 Active azithromycin (Zithromax Z-Armani) 250 mg tabletIndications :Pneumonitis Two tablets the first day, one daily days 2-5 6 Tablet 03/23/20 24 024 Active buprenorphine HCL (SUBUTEX) 2 mg sublIndications:P ain Place 1 Tablet (2 mg) under the tongue 2 times daily. 0 01/06/20 22 024 Discontinued(*M edication adjustment) fluticasone fur-umeclidinium- vilanterol (Trelegy Ellipta) 100-62.5-25 mcg inhalerIndication s:Chronic obstructive pulmonary disease, unspecified COPD type (HC) Inhale 1 Puff by mouth once daily. 90 Each 3 05/30/20 23 024 Discontinued ALPRAZolam (XANAX XR) 0.5 mg Extended-Release tabletIndications :Psychophysiologi kassy insomnia,Panic disorder Take 1 Tablet (0.5 mg) by mouth two times daily. 60 Tablet 2 08/29/19 24 024 Discontinued(*P atient states no longer taking) predniSONE (DELTASONE) 20 mg tabletIndications :History of gout Two oral daily for 5 days. 10 Tablet 12/05/19 24 024 Discontinued(*M ed complete/Regime n complete/Level of care change) oxyCODONE-acetami nophen (PERCOCET) 5-325 mg per tabletIndications :Adhesive capsulitis of right shoulder,Arthriti s of right glenohumeral joint Take 1 Tablet by mouth every 6 hours if needed for Pain. Max acetaminophen dose: 4000mg in 24 hrs. 20 Tablet 02/03/20 24 024 Discontinued(*P atient states no longer taking) bisacodyL (DULCOLAX) 10 mg suppositoryIndica tions:Constipatio n, unspecified constipation type Insert 1 Suppository (10 mg) rectally once daily if needed for Constipation (constipation). 10 Suppository 6 02/21/20 24 024 Discontinued(*M ed complete/Regime n complete/Level of care change) empagliflozin (Jardiance) 25 mg tabletIndications :Type 2 diabetes mellitus with other circulatory complication, without long-term current use of insulin (HC) Take 1 Tablet (25 mg) by mouth once daily. 90 Tablet 1 02/21/20 24 024 Discontinued(*A vailability/For mulary change/Cost of medication) Active Problems Problem Noted Date Diagnosed Date AP (angina pectoris) 10/08/2023 Stage 3a chronic kidney disease 10/08/2023 Atypical chest pain 02/19/2023 Abnormal cardiovascular stress test 02/19/2023 Overview: - 01/30/23 NM Stress Test: 1. There is a small area of mild reversibility involving the mid and apical anterior septum. This is suspicious for mild ischemia. 2. Normal left ventricular ejection fraction of approximately 65 percent. Arthritis of right glenohumeral joint 01/11/2023 Chronic narcotic use 06/26/2022 Heart failure with preserved ejection fraction 0 04/24/2022 Poor dentition 11/06/2021 Acute on chronic respiratory failure with hypoxia and hypercapnia 10/07/2021 Controlled substance agreement signed 09/20/2021 Overview: 09/20/21 Anastasiia Reeves MD/psychiatry Cluster B personality disorder 04/26/2021 CO2 retention 04/17/2021 Anomalous coronary artery origin 11/08/2020 Edema 11/08/2020 Gastroesophageal reflux disease 02/02/2020 Anxiety disorder 11/23/2019 Panic disorder 11/23/2019 Posttraumatic stress disorder 09/15/2019 Refractory migraine 07/28/2017 Asthma 12/06/2016 Overview: Asthma NOS Lumbar spinal stenosis 09/19/2016 COPD (chronic obstructive pulmonary disease) Insomnia 06/04/2016 Allergic rhinitis due to pollen 06/04/2016 Arthropathy of spinal facet joint 03/23/2016 Chronic pain syndrome 11/22/2013 Overview: headaches, low back pain headaches, low back pain Personal history of nicotine dependence 06/09/20 12 Overview: 1/2 ppd States she quit in 2004 (occasionally tries one cigarette) Moderate episode of recurrent major depressive d isorder 01/11/2012 Overview: Moderate recurrent major depression CAD (coronary artery disease) 09/28/2010 Overview: ANOMALOUS CORONARY ARTERIES, mild CAD per coronary angiogram 10/03/04 - S/P CABG in 2004 at [facility] (VG to RCA and VG to mLAD) - 02/17/20: complex high risk PCI; [place] LAD reconstruction with CHAPIN X 2; SVG - RCA with 70% ostial lesion treated with CHAPIN - 03/31/21: s/p CHAPIN mLAD (ISR) - 02/19/23: The LAD is now occluded in it? s mid-vessel stented segment (New since 2021 angiogram). However the mid and apical LAD fill from patent SVG SOCORRO 10/20/2019 AHI-7 09/28/2010 Other and unspecified hyperlipidemia 09/28/2010 Grave's disease 09/28/2010 Type 2 diabetes mellitus wit h circulatory disorder, without long-term current use of insulin 09/28/2010 Overview: a system change updated this record. This will not affect patient care or billing. This comment can be deleted. Hypothyroidism Resolved Problems Problem Noted Date Diagnosed Date Resolved Date Adhesive capsulitis of right shoulder 01/11/2023 06/07/2023 COPD with acute exacerbation 10/07/2021 03/06/2022 Status post coronary angiogram 06/29/2021 03/06/2022 Leukocytosis 06/29/2021 03/06/2022 Acute on chronic heart failu re with preserved ejection fraction 12/06/2020 07/23/2022 Chest pain 02/17/2020 03/06/2022 Controlled substance agreement signed 08/21/2019 09/20/2021 Overview: Signed 08/17/19 Dr Anastasiia Reeves Psychiatry HLD (hyperlipidemia) 09/19/2016 022 Tobacco use disorder 09/28/2010 019 Anxiety state, unspecified 09/28/2010 0 03/14/2021 Acute postoperative pain Encounters Date Type Department Care Team Description 03/25/2024 9:15 AM CDT Office Visit [facility] [address] [place] [address] Anastasiia Reeves MD Medication Management (Things are not good/Tried [facility] and made things worse/*Needs zyprexa added to allergies*) 03/25/2024 Travel 03/23/2024 3:30 PM CDT Ancillary Procedure [facility] [address] [place] [address] Arrived 03/23/2024 2:30 PM CDT Office Visit [facility] [address] [place] [address] Moreno Dill MD Concerns (Chest congestion, cough, heart palpitations started a couple weeks ago after increasing Olanzapine); Fatigue (Weakness and tired) 03/23/2024 Travel 03/18/2024 Transcribe Orders [facility] [address] [place] [address] [address] [place] [address] Kermit Bernal PA 03/18/2024 Transcribe Orders [facility] [address] [place] [address] Kermit Bernal PA 03/18/2024 Refill [facility] [address] [place] [address] Moreno Dill MD Refill Request (Trelegy Ellipta) 03/06/[address] [place] [address] Brady Pierce MD Medication Management 02/19/2024 Refill [facility] [address] [place] [address] Moreno Dill MD Refill Request 02/11/2024 2:30 PM CDT Office Visit [facility] [address] [place] [address] Brady Pierce MD Follow Up (CAD) 02/11/[address] [place] [address] Brady Pierce MD Medication Management (PCSK-9) 02/11/2024 Travel 02/05/2024 Refill [facility] [address] [place] [address] Moreno Dill MD Refill Request (Ventolin Hfa) 02/05/2024 Telephone [facility] [address] [place] [address] Moreno Dill MD Medication Management (empagliflozin (Jardiance) 25 mg tablet ) 02/04/2024 Refill [facility] [address] [place] [address] Moreno Dill MD Refill Request (Levothyroxine) 02/03/2024 2:15 PM CDT Procedure Only [facility] [address] [place] [address] Jamey Snell MD Recheck (Right Shoulder ) 02/03/2024 Telephone [facility] [address] [place] [address] Jamey Snell MD Need Meds 02/03/2024 Travel 01/22/2024 2:00 PM CDT Orders Only [facility] [address] [place] [address] Lab, [place] Outside Order (Ordered by Yolis Steele) 01/22/2024 Travel 01/13/2024 Orders Only [facility] [address] [place] [address] Moreno Dill MD Outside Order (Ordered by Yolis Steele A... from Last 3 Months Immunizations Name Administration Dates Next Due COVID-19 vaccine (Pfizer-Bio NTech 30mcg/0.3mL) 12YO+ BIVALENT PF, MDV 02/22/2023,07/23/2022 COVID-19 vaccine (Pfizer-Bio NTech 30mcg/0.3mL) 12YO+ MARY-SUCROSE PF, MDV 03/06/2022,10/16/2021 COVID-19 vaccine (Pfizer-Bio NTech 30mcg/0.3mL) PF, MDV 01/11/2021,12/06/2020 Hepatitis B (Adult) 07/17/2000,11/22/1999,1999 Hepatitis B, Unspecified 07/17/2000,11/22/1999,0 10/10/1999 Influenza A (H1N1), Inactivated 07/13/2010 Influenza Intradermal PF 18-64 yrs 06/09/2013 Influenza Virus, Unspecified 07/06/2019, 06/29/2016,06/21/2015,2013,06/09/2013,07/18/2012,06/19/2011,1 ,07/13/2010,05/12/2009, 998 Influenza, IIV3 (Age >=3 years) 07/18/2012,05/12 Influenza, IIV4 05/17/2023, 2,06/09/2021,2019,07/06/2019,08/13/2018,06/29/2016 Influenza, IIV4 (=>6mos) MDV 06/21/2015 Pneumococcal Conj 20-valent (Prevnar 20) 10/16/2022 Pneumococcal Poly,23-Valent (Pneumovax) 12/11/2007,05/15/2007 Tdap 10/08/2023,12/24/2012 Tetanus Toxoid 08/08/2010 Tuberculin Skin Test, Unspecified 07/01/2011 Zoster (Shingrix-RZV, recombinant) 11/06/2021, Family History Medical History Relation Name Comments Diabetes Paternal Grandfather Cancer-breast Paternal Grandmother post m enopause Cancer-colon No Family History Cancer-ovarian No Family History Relation Name Status Comments Paternal Grandfather Paternal Grandmother Social History Tobacco Use Types Packs/Day Years Used Date Smoking Tobacco: Former Cigarettes 1 20 0 09/19/1984 - 09/19/2004 Cigars Smokeless Tobacco: Never Tobacco Cessation:Counseling Given: No Alcohol Use Standard Drinks/Week Comments No 0 (1 standard drink = 0.6 oz pur e alcohol) PHQ-2 Answer Date Recorded PHQ-2 TOTAL SCORE 3 03/25/2024 Social Connections Answer Date Recorded Frequency of Communication with Friends and Fami ly 0 05/30/2023 Financial Resource Strain Answer Date R ecorded Difficulty of Paying Living Expenses 3 05/30/2023 Difficulty of Paying Living Expenses Not on file 05/30/2023 Food Insecurity Answer Date Recorded Worried About Running Out of Food in the Last Ye ar 1 05/30/2023 Transportation Needs Answer Date Record ed Lack of Transportation (Medical) 1 05/30/2023 Housing Stability Answer Date Recorded Unable to Pay for Housing in the Last Year 1 05/30/2023 Sex and Gender Information Value Date Recorded Sex Assigned at Not on file Gender Identity Not on file Sexual Orientation Not on file Obstetrics History Last Filed Vital Signs Vital Sign Reading Time Taken Comments Blood Pressure 110/60 03/25/2024 9:12 AM CDT Pulse 80 03/25/2024 9:12 AM CDT Temperature 36.7 ??C (98.1 ??F) 10/18/2023 1:56 PM CS T Respiratory Rate 18 02/19/2023 5:45 PM CDT Oxygen Saturation 95% 03/23/2024 2:38 PM CDT Inhaled Oxygen Concentration - - Weight 79.8 kg (175 lb 14.4 oz) 03/25/2024 9:12 AM CDT Height 162.6 cm (5' 4) 11/08/2023 3:34 PM CDT Body Mass Index 30.19 11/08/2023 3:34 PM CDT Plan of Treatment Health Maintenance Due Date Last Done Comments Pap test for age 21-65 02/11/1980 Colonoscopy through age 75 02/11/2004 COVID-19 vaccine series (2022- season) 2023 02/22/2023, 07/23/2022, 03/06/2022, Additional history exists Mammogram for age 45-75 08/22/2023 08/22/2022 DEXA/DXA scan for age 65+ 02/11/2024 Influenza for age 65+ 04/26/2024 05/17/2023 , 07/23/2022, 06/09/2021, Additional history exists BMI (ht and wt on same day) for age 18+ 11/07/2024 11/08/2023, 08/29/2023, 01/08/2023, Additional history exists Depression screening for age 12+ 03/25/2025 03/25/2024, 10/03/2023, 10/03/2023, Additional history exists Lipids for age 45-75 01/21/2029 01/22/2024, 02/19/2023, 10/16/2022, Additional history exists Tetanus booster 10/08/2033 10/08/2023, 12/24/2012 Hepatitis C screening for ag e 18-79 Completed 10/06/2020 Zoster (shingles) series for age 50+ Completed 11/06/2021, 03/14/2021 HIV for age 15-65 Completed 10/16/2022 Pneumococcal series for age 65+ Completed 10/16/2022, 12/11/2007, 05/15/2007 Tdap Completed 10/08/2023, 12/24/2012 Medical Devices Implanted Type Area Building Construction Contractor Device Identifier Shelf Expiration Date Model / Serial / Lot [id number] 15cc Mtf Chips Canendy Jar [[id number] Implanted:Qty: 1 on 09/19/2016 by Dat Hazel MD at [facility] Explanted:at [facility] (Quantity not on file) N/A: Spine Musculoskeletal Transplant 01/30/2017 [id number] / [id number] / [id number] 1cc [place] Plus Paste Dbm Implanted:Qty: 1 on 09/19/2016 by Dat Hazel MD at [facility] Explanted:at [facility] (Quantity not on file) N/A: Spine Medtronic Spine/Ortho 04/05/2018 [id number]# / [id number] / Screw Cerv Ant 4x14mm Atlantistranslational Fa Slf Drill - [id number] Implanted:Qty: 4 on 09/19/2016 by Dat Hazel MD at [facility] N/A: Spine Medtronic Spine/Ortho [id number] / / Screw Occipital 4.5x6mm Vertexselect - [id number] Implanted:Qty: 2 on 09/19/2016 by Dat Hazel MD at [facility] N/A: Spine Medtronic Spine/Ortho [id number]# / / Plate Cerv 2lvl 40mm [place] Vision Elite Ant - [id number] Implanted:Qty: 1 on 09/19/2016 by Dat Hazel MD at [facility] N/A: Spine Medtronic Spine/Ortho [id number] / / Spacer [id number] Implanted:Qty: 1 on 09/19/2016 by Dat Hazel MD at [facility] N/A: Spine [id number] / / 70CV Description:SPACER [id number] Spacer [id number] Implanted:Qty: 1 on 09/19/2016 by Dat Hazel MD at [facility] N/A: Spine [id number] / / [id number] Description:SPACER [id number] Procedures Procedure Name Priority Date/Time Associated Diagnosis Comments PA READING EKG - NO CHARGE, COMP ONLY Routine 03/25/2024 4:39 PM CDT Chest pain in adult EKG 12 LEAD Routine 03/25/2024 4:39 PM CDT Chest pain in adult XR CHEST 2 VIEWS PA AND LATERAL Routine 03/23/2024 3:36 PM CDT Chest pain in adult CBC WITH AUTO DIFFERENTIAL Routine 03/23/2024 3:25 PM CDT Chest pain in adult CBC WITH AUTO DIFFERENTIAL Routine 03/23/2024 3:25 PM CDT Chest pain in adult CBC WITH AUTO DIFFERENTIAL Routine 01/22/2024 1:59 PM CDT Encounter for long-term (current) use of other medications T3,TOTAL Routine 01/22/2024 1:59 PM CDT Encounter for long-term (current) use of other medications T4,FREE Routine 01/22/2024 1:59 PM CDT Encounter for long-term (current) use of other medications VITAMIN D 25 (DEFICIENCY) Routine 01/22/2024 1:59 PM CDT Encounter for long-term (current) use of other medications MAGNESIUM Routine 01/22/2024 1:59 PM CDT Encounter for long-term (current) use of other medications LIPID PANEL Routine 01/22/2024 1:59 PM CDT Encounter for long-term (current) use of other medications VITAMIN B12 Routine 01/22/2024 1:59 PM CDT Encounter for long-term (current) use of other medications FOLIC ACID Routine 01/22/2024 1:59 PM CDT Encounter for long-term (current) use of other medications IRON Routine 01/22/2024 1:59 PM CDT Encounter for long-term (current) use of other medications HEMOGLOBIN A1C Routine 01/22/2024 1:59 PM CDT Encounter for long-term (current) use of other medications TSH Routine 01/22/2024 1:59 PM CDT Encounter for long-term (current) use of other medications COMP METABOLIC PANEL Routine 01/22/2024 1:59 PM CDT Encounter for long-term (current) use of other medications CBC WITH AUTO DIFFERENTIAL Routine 01/22/2024 1:59 PM CDT Encounter for long-term (current) use of other medications LC HIV-1/O/2, 4TH GENERATION Routine 10/16/2022 1:42 PM INFUSION THERAPY NURSE Screening for HIV (human immunodeficiency virus) XR MAMMO ROMY BILAT DIAG Routine 08/22/2022 2:50 PM INFUSION THERAPY NURSE Mass of upper outer quadrant of right breast ANTI HCV Routine 10/06/2020 12:55 PM INFUSION THERAPY NURSE Need for hepatitis C screening test from Last 3 Months or Most Recently Relevant to Health Maintenance Results * EKG 12 LEAD (03/25/2024 4:39 PM CDT) Moreno Dill MD EKG ORD * PA READING EKG - NO CHARGE, COMP ONLY (03/25/2024 4:39 PM CDT) Moreno Dill MD PB - PROVIDER READINGS * XR CHEST 2 VIEWS PA AND LATERAL (03/23/2024 3:36 PM CDT) Anatomical Region Laterality Modality CHEST, THORAX, Lung, HEART Compu shawn Radiography 03/24/2024 3:11 PM CDT Impressions 03/24/2024 3:11 PM CDT No acute findings. Dictated by Ra Correia MD @ 03/24/2024 3:11:02 PM (Electronically Signed) Narrative 03/24/2024 3:11 PM CDT For Patients: ??As a result of the Cures Act, medical imaging exams and procedure reports are released immediately into your electronic medical record. ??You may view this report before your referring provider. ??If you have questions, please contact your health care provider. INDICATION: Chest pain in adult TECHNIQUE: Chest 2 views COMPARISON: 10/18/2023 FINDINGS: Cardiovascular and mediastinum: ??Postop changes of CABG. Cardiac silhouette enlarged. Lungs and pleural spaces: ??Mild patchy areas of scarring in both lung bases. No sign of infiltrate or mass. ??No sign of pleural effusion. ??No pneumothorax. ?? Bones and soft tissues: Postop changes cervical spine. Procedure Note Ra Correia MD - 03/24/2024 For Patients: As a result of the Cures Act, medical imagingexams and procedure reports are released immediately into your electronicmedical record. You may view this report before your referring provider.If you have questions, please contact your health care provider. INDICATION: Chest pain in adult TECHNIQUE: Chest 2 views COMPARISON: 10/18/2023 FINDINGS: Cardiovascular and mediastinum: Postop changes of CABG. Cardiacsilhouette enlarged. Lungs and pleural spaces: Mild patchy areas of scarring in both lungbases. No sign of infiltrate or mass. No sign of pleural effusion. Nopneumothorax. Bones and soft tissues: Postop changes cervical spine. IMPRESSION: No acute findings. Dictated by Ra Correia MD @ 03/24/2024 3:11:02 PM (Electronically Signed) Moreno Dill MD GENERAL IMAGIN G * (ABNORMAL) CBC WITH AUTO DIFFERENTIAL (03/23/2024 3:25 PM CDT) Only the most recent of2 resultswithin the time period is included. WHITE BLOOD COUNT 11.6(H) 4.5 - 11.0 thou/cu mm 03/23/2024 3:29 PM CDT [facility] RED BLOOD COUNT 4.46 4.00 - 5.20 mil/cu mm 03/23/2024 3:29 PM CDT [facility] HEMOGLOBIN 13.8 12.0 - 16.0 g/dL 03/23/2024 3:29 PM CDT [facility] HEMATOCRIT 42.2 33.0 - 51.0 % 03/23/2024 3:29 PM CDT [facility] MCV 95 80 - 100 fL 03/23/2024 3:29 PM CDT [facility] MCH 30.9 26.0 - 34.0 pg 03/23/2024 3:29 PM CDT [facility] MCHC 32.7 32.0 - 36.0 g/dL 03/23/2024 3:29 PM CDT [facility] RDW 13.4 11.5 - 15.5 % 03/23/2024 3:29 PM CDT [facility] PLATELET COUNT 239 140 - 440 thou/cu mm 03/23/2024 3:29 PM CDT [facility] MPV 9.5 6.5 - 11.0 fL 03/23/2024 3:29 PM CDT [facility] % NEUT 73.1 % 03/23/2024 3:29 PM CDT [facility] % LYMPH 17.5 % 03/23/2024 3:29 PM CDT [facility] % MONO 9.1 % 03/23/2024 3:29 PM CDT [facility] % EOS 0.0 % 03/23/2024 3:29 PM CDT [facility] % BASO 0.3 % 03/23/2024 3:29 PM CDT [facility] ABSOLUTE NEUTROPHILS 8.5(H) 1.7 - 7.0 thou/cu mm 03/23/2024 3:29 PM CDT [facility] ABSOLUTE LYMPHOCYTES 2.0 0.9 - 2.9 thou/cu mm 03/23/2024 3:29 PM CDT [facility] ABSOLUTE MONOCYTES 1.1(H) <0.9 thou/cu mm 03/23/2024 3:29 PM CDT [facility] ABSOLUTE EOSINOPHILS 0.0 <0.5 thou/cu mm 03/23/2024 3:29 PM CDT [facility] ABSOLUTE BASOPHILS 0.0 <0.3 thou/cu mm 03/23/2024 3:29 PM CDT [facility] Blood BLOOD SPECIMEN / Unknown Venipuncture / Unknown 03/23/2024 3:25 PM CDT 03/23/2024 3:25 PM CDT Moreno Dill MD HEMATOLOGY Performing Organization Address City/[facility]/ZIP Co de Phone Number [facility] [address] [place] [address], [place] [phone] * VITAMIN D 25 (DEFICIENCY) (01/22/2024 1:59 PM CDT) VITAMIN D TOTAL 42.2 20.0 - 80.0 ng/mL 01/22/2024 10:46 PM CDT [facility] Blood BLOOD SPECIMEN / Unknown Venipuncture / Unknown 01/22/2024 1:59 PM CDT 01/22/2024 2:00 PM CDT Narrative [facility] - 01/22/2024 10:46 PM CDT ? Vitamin D Status Deficiency: ? <20 ng/mL Insufficiency: ?20-29 ng/mL Sufficiency: ?30-80 ng/mL Possible Toxicity: ??>80 ng/mL Based on [place] [employer] recommendations Biotin supplements may cause clinically significant interference for this test assay. ??If interference is suspected, it is strongly recommended that biotin is discontinued for at least one week prior to retesting. Moreno Dill MD SEND OUTS Performing Organization Address [facility]/ZIP Co de Phone Number [facility] [address] [place] [address], [place] * TSH (01/22/2024 1:59 PM CDT) TSH 0.61 0.27 - 4.20 uIU/mL 01/22/2024 10:55 PM CDT [facility] Blood BLOOD SPECIMEN / Unknown Venipuncture / Unknown 01/22/2024 1:59 PM CDT 01/22/2024 2:00 PM CDT Narrative [facility] - 01/22/2024 10:55 PM CDT In Adults, TSH values between 5.00 and 10.00 uIU/ml do not necessarily indicate the presence of Hypothyroidism. Correlation with clinical findings such as presence of goiter and/or Thyroperoxidase (TPO) Antibody may be helpful. For more information please refer to SPENCER 2004; 291: 228-238. Moreno Dill MD CHEMISTRY Performing Organization Address [facility] Co de Phone Number [facility] [address] [place] [address], [place] * IRON (01/22/2024 1:59 PM CDT) IRON 56 37 - 145 ug/dL 01/22/2024 10:46 PM CDT [facility] Blood BLOOD SPECIMEN / Unknown Venipuncture / Unknown 01/22/2024 1:59 PM CDT 01/22/2024 2:00 PM CDT Moreno Dill MD CHEMISTRY Performing Organization Address [facility] Co de Phone Number [facility] [address] [address], [place] * T3,TOTAL (01/22/2024 1:59 PM CDT) T3,TOTAL 86 85 - 202 ng/dL 01/22/2024 10:45 PM CDT [facility] Blood BLOOD SPECIMEN / Unknown Venipuncture / Unknown 01/22/2024 1:59 PM CDT 01/22/2024 2:00 PM CDT Moreno Dill MD CHEMISTRY Performing Organization Address [facility] Co de Phone Number [facility] [address] [place] [address], * T4,FREE (01/22/2024 1:59 PM CDT) T4,FREE 1.14 0.93 - 1.70 ng/dL 01/22/2024 10:45 PM CDT [facility] Blood BLOOD SPECIMEN / Unknown Venipuncture / Unknown 01/22/2024 1:59 PM CDT 01/22/2024 2:00 PM CDT Moreno Dill MD CHEMISTRY Performing Organization Address [facility]/ZIP Co de Phone Number [facility] [address] [place] [address], * MAGNESIUM (01/22/2024 1:59 PM CDT) [facility] MAGNESIUM 2.2 1.6 - 2.4 mg/dL 01/22/2024 10:45 PM CDT [facility] Blood BLOOD SPECIMEN / Unknown Venipuncture / Unknown 01/22/2024 1:59 PM CDT 01/22/2024 2:00 PM CDT Moreno Dill MD CHEMISTRY Performing Organization Address City/[facility]/ZIP Co de Phone Number [facility] [address] [place] [address], * (ABNORMAL) HEMOGLOBIN A1C MONITORING (POCT) (01/22/2024 1:59 PM CDT) [facility] HEMOGLOBIN A1C MONITORING (POCT) 7.9(H) <=6.4 % 01/22/2024 2:09 PM CDT [facility] Blood BLOOD SPECIMEN / Unknown Venipuncture / Unknown 01/22/2024 1:59 PM CDT 01/22/2024 2:00 PM CDT Narrative [facility] - 01/22/2024 2:09 PM CDT ? (<=6.9%) ? Indicates good control ? (7.0% to 7.9%) ? Indicates fair control ? (>=8.0%) ? Indicates poor control ?? NOTE: ??These thresholds are guidelines and ?individual targets may vary. Falsely low levels may be seen with: Recent Transfusion, Recent Significant Blood Loss, Hemolytic Diseases, or Falsely elevated levels may be seen with: Untreated Anemias, Splenectomy ? Moreno Dill MD CHEMISTRY Performing Organization Address [facility] Co de Phone Number [facility] [address] [place] [address], * FOLIC ACID (01/22/2024 1:59 PM CDT) Pathologist [facility] FOLIC ACID 13.2 4.6 - 34.8 ng/mL 01/22/2024 10:46 PM CDT [facility] Blood BLOOD SPECIMEN / Unknown Venipuncture / Unknown 01/22/2024 1:59 PM CDT 01/22/2024 2:00 PM CDT Narrative [facility] - 01/22/2024 10:46 PM CDT Biotin supplements may cause clinically significant interference for this test assay. ??If interference is suspected, it is strongly recommended that biotin is discontinued for at least one week prior to retesting. Moreno Dill MD CHEMISTRY Performing Organization Address City/[facility]/ZIP Co de Phone Number [facility] [address] [place] [address], * VITAMIN B12 (01/22/2024 1:59 PM CDT) Pathologist [facility] VITAMIN B12 587 232 - 1,245 pg/mL 01/22/2024 10:46 PM CDT [facility] Blood BLOOD SPECIMEN / Unknown Venipuncture / Unknown 01/22/2024 1:59 PM CDT 01/22/2024 2:00 PM CDT Narrative [facility] - 01/22/2024 10:46 PM CDT Biotin supplements may cause clinically significant interference for this test assay. ??If interference is suspected, it is strongly recommended that biotin is discontinued for at least one week prior to retesting. Moreno Dill MD CHEMISTRY Performing Organization Address [facility]/ZIP Co de Phone Number [facility] [address] [place] [address], [place] * LIPID PANEL (01/22/2024 1:59 PM CDT) [facility] CHOLESTEROL,TOTAL 171 100 - 199 mg/dL 01/22/2024 10:45 PM CDT [facility] Comment: Cholesterol, Total Reference Ranges Desirable <200 mg/dL Borderline 200-239 mg/dL High >=240 mg/dL TRIGLYCERIDES 149 <150 mg/dL 01/22/2024 10:45 PM CDT [facility] HDL CHOLESTEROL 63 >40 mg/dL 10:45 PM CDT [facility] NON-HDL CHOLESTEROL 108 <145 mg/dl 01/22/2024 10:45 PM CDT [facility] CHOL/HDL RATIO 2.71 <4.50 01/22/2024 10:45 PM CDT [facility] LDL CHOLESTEROL 78 <=130 mg/dL 01/22/2024 10:45 PM CDT [facility] VLDL CHOLESTEROL 30 <=30 mg/dL 01/22/2024 10:45 PM CDT [facility] PROVIDER ORDERED STATUS FASTING 01/22/2024 10:45 PM CDT [facility] Blood BLOOD SPECIMEN / Unknown Venipuncture / Unknown 01/22/2024 1:59 PM CDT 01/22/2024 2:00 PM CDT Moreno Dill MD CHEMISTRY Performing Organization Address [facility]/ZIP Co de Phone Number [facility] [address] [place] [address], [place] * (ABNORMAL) COMP METABOLIC PANEL (01/22/2024 1:59 PM CDT) SODIUM 140 136 - 145 mmol/L 01/22/2024 10:45 PM CDT [facility] POTASSIUM 4.8 3.5 - 5.1 mmol/L 01/22/2024 10:45 PM CDT [facility] CHLORIDE 102 98 - 107 mmol/L 01/22/2024 10:45 PM CDT [facility] CO2,TOTAL 28 22 - 29 mmol/L 01/22/2024 10:45 PM CDT [facility] ANION GAP 10 5 - 18 01/22/2024 10:45 PM CDT [facility] GLUCOSE 150(H) 70 - 99 mg/dL 01/22/2024 10:45 PM CDT [facility] CALCIUM 9.4 8.8 - 10.2 mg/dL 01/22/2024 10:45 PM CDT [facility] BUN 11 8 - 23 mg/dL 01/22/2024 10:45 PM T [facility] CREATININE 0.79 0.50 - 0.90 mg/dL 01/22/2024 10:45 PM T [facility] BUN/CREAT RATIO 14 10 - 20 10:45 PM T [facility] eGFR 84(L) >90 mL/min/1.7 3m2 01/22/2024 10:45 PM T [facility] Comment:As of 2021, eG FR is calculated by the CKD-EPI creatinine equation without race adjustment. ??eGFR can be influenced by muscle mass, exercise, and diet. ??The reported eGFR is an estimation only and is only applicable if the renal function is stable. ALBUMIN 4.3 4.0 - 4.9 g/dL 01/22/2024 10:45 PM CDT [facility] PROTEIN,TOTAL 6.4 6.0 - 8.0 g/dL 01/22/2024 10:45 PM T [facility] BILIRUBIN,TOTAL 0.2 0.0 - 1.2 mg/dL 01/22/2024 10:45 PM CDT [facility] ALK PHOSPHATASE 74 35 - 104 IU/L 01/22/2024 10:45 PM CDT [facility] ALT (SGPT) 15 10 - 35 IU/L 01/22/2024 10:45 PM CDT [facility] AST (SGOT) 21 10 - 35 IU/L 01/22/2024 10:45 PM CDT [facility] Blood BLOOD SPECIMEN / Unknown Venipuncture / Unknown 01/22/2024 1:59 PM CDT 01/22/2024 2:00 PM CDT Moreno Dill MD CHEMISTRY Performing Organization Address [facility]/ZIP Co de Phone Number [facility] [address] [place] [address], [place] * LC HIV-1/O/2, 4TH GENERATION (10/16/2022 1:42 PM INFUSION THERAPY NURSE) HIV Scr 4th Gen Non Reactive Non Reactive 10/18/2022 1:09 PM INFUSION THERAPY NURSE [facility] Comment: HIV Negative HIV-1/HIV-2 antibodies and HIV-1 p24 antigen were NOT detected. There is no laboratory evidence of HIV infection. Blood BLOOD SPECIMEN / Unknown Butterfly / Unknown 10/16/2022 1:42 PM INFUSION THERAPY NURSE 10/16/2022 1:49 PM INFUSION THERAPY NURSE Narrative [facility] - 10/18/2022 1:09 PM INFUSION THERAPY NURSE Performed at: ??[address] ??[id number] [address] Judge: Scotty Jarrell MD, Phone: ??[phone] Moreno Dill MD LABORATORY [facility] ([facility]) [facility] [place] [address], [place] * XR MAMMO ROMY BILAT DIAG (08/22/2022 2:50 PM INFUSION THERAPY NURSE) Anatomical Region Laterality Modality BREASTS, Breast Left, Breast Right Bilateral Mammography Impressions 08/23/2022 12:21 PM INFUSION THERAPY NURSE Subcutaneous bruise RIGHT breast 11 o'clock 8 cm from the nipple. No evidence of malignancy. RECOMMENDATIONS: Routine screening mammography. BI-RADS Category 2: Benign Results and recommendations discussed with the patient. Dictated by: Ra Correia MD @08/22/2022 3:18:57 PM/e PATIENTS: You will also receive a letter with your examination results in an easy to read format. ??If you have questions about your results, please contact your referring provider. Narrative 08/23/2022 12:21 PM INFUSION THERAPY NURSE As a result of the Cures Act, medical imaging exams and procedure reports are released immediately into your electronic medical record. ??You may view this report before your referring provider. ??If you have questions, please contact your health care provider. BILATERAL BREAST MAMMOGRAM DIGITAL DIAGNOSTIC WITH COMPUTER-AIDED DETECTION AND TOMOSYNTHESIS 08/22/2022 ?? RIGHT BREAST ULTRASOUND 08/22/2022 CLINICAL HISTORY: RIGHT breast lump. COMPARISON: None. TECHNIQUE: Digital BILATERAL mammogram in 4 projections. Real-time ultrasound imaging of RIGHT breast with imaging documentation. BREAST COMPOSITION: There are scattered areas of fibroglandular density. FINDINGS: Mammogram images demonstrate postbiopsy changes to the LEFT breast. No suspicious masses or architectural distortion. No adenopathy or suspicious calcifications. Targeted RIGHT breast ultrasound performed in the area of concern at 11 o'clock 8 cm from the nipple. A subtle area of increased echogenicity is present just beneath the skin measuring 1.8 x 1.0 x 0.8 cm. No abnormal vascularity. Moreno Dill MD MAMMO * ANTI HCV (10/06/2020 12:55 PM INFUSION THERAPY NURSE) HEPATITIS C ANTIBODY Non-React francis Non-React francis 10/06/2020 10:54 PM INFUSION THERAPY NURSE [facility] Comment:Antibodies to HCV no t detected; does not exclude the possibility of exposure to HCV. Blood BLOOD SPECIMEN / Unknown Butterfly / Unknown 10/06/2020 12:55 PM INFUSION THERAPY NURSE 10/06/2020 1:00 PM INFUSION THERAPY NURSE Moreno Dill MD SEND OUTS [facility] [address] [place] [address], [place] from Last 3 Months or Most Recently Relevant to Health Maintenance Advance Directives * Full Code (Latest Code Status on File) Date Activated Date Inactivated Comments 02/19/2023 11:27 AM 02/19/2023 8:41 PM Question Answer Comments Code Status Discussion: Reviewed Preferences * Full Code Date Activated Date Inactivated Comments 10/05/2021 12:59 PM 10/11/2021 1:07 PM Question Answer Comments Code Status Discussion: Reviewed Preferences * Full Code Date Activated Date Inactivated Comments 03/31/2021 10:36 AM 03/31/2021 9:00 PM Question Answer Comments Code Status Discussion: Discussed * Full Code Date Activated Date Inactivated Comments 02/17/2020 4:00 PM 02/18/2020 2:15 PM * Full Code Date Activated Date Inactivated Comments 09/19/2016 12:46 PM 09/21/2016 2:27 PM Question Answer Comments Code Status Discussion: Discussed Care Teams Networking Engineer Relationship Specialty Start Date End Date Moreno Dill MD [address] [place] [address] PCP - General Family Practice 04/20/19
[2024-03-25] MEDS: METHYLPREDNISOLONE SOD SUCC 62.5 MG/ML (125) 125 MG IVP (17:25)
[2024-03-25 17:30] VITALS: PULSE 70; O2SAT 94
[2024-03-25 17:50] LABS: HCO3 VBG 33 mmol/L (21-28); Lactate* 1.2 mmol/L (0.5-1.9); PCO2 VBG 55 mmHG (40-50); PO2 VBG 35.4 mmHG (25-47); pH VBG 7.379 (7.32-7.43)
[2024-03-25 17:53] LABS: Basophils Percent Auto 0.4 % (0.0-3.0); Eosinophils Percent Auto 0.1 % (0.0-7.0); Hematocrit 37.7 % (33.0-51.0); Hemoglobin* 12.3 gm/dL (12.0-16.0); Immature Granulocytes Pct Auto 0.4 %; Lymphocytes Percent Auto 16.8 % (20-44); Mean Corpuscular HGB Conc 33 gm/dL (32-36); Mean Corpuscular Hemoglobin 30 pg (26-34); Mean Corpuscular Volume 93 fL (80-100); Monocytes Percent Auto 7.7 % (0.0-11.0); Neutrophils Percent Auto 74.6 % (42.0-72.0); Platelet Count* 264 K/uL (140-440); RDW Coefficient of Variation % 12.6 % (11.5-15.5); Red Blood Count 4.04 m/uL (4.00-5.20); White Blood Count* 14.12 K/uL (4.50-11.00)
[2024-03-25 17:58] LABS: Slide Review Reflex No
[2024-03-25 18:13] LABS: Chloride* 93 mmol/L (96-114); Potassium* 4.5 mmol/L (3.6-5.1); Sodium* 128 mmol/L (135-149)
[2024-03-25 18:16] LABS: Anion Gap 5 mEq/L (7-15); Blood Urea Nitrogen* 11 mg/dL (7-30); Carbon Dioxide* 30 mmol/L (20-32); Creatinine* 0.6 mg/dL (0.5-1.5); Est. Creatinine Clearance* 48.43; Estimated Glomerular Filt Rate 100 ml/min; Glucose* 135 mg/dL (60-115)
[2024-03-25 18:17] LABS: Calcium* 8.9 mg/dL (8.4-10.6)
[2024-03-25 18:35] LABS: NT Pro B Type NatriureticPept* 354 pg/mL
[2024-03-25 18:36] LABS: Procalcitonin* < 0.03 ng/mL (<0.50)
[2024-03-25 18:54] LABS: D Dimer Quantitative* 0.42 ug/ml (0.00-0.50)
[2024-03-25 19:00] LABS: PCR FLU A Negative PCR FLU A (Negative); PCR FLU B Negative PCR FLU B (Negative); PCR RSV Negative PCR RSV (Negative); SARS PCR* Negative SARS-CoV-2 (Negative)
--- NOTE | 2024-03-25 19:41 | CRLHL7_ITS ---
For Patients: As a result of the Cures Act, medical imaging exams and procedure reports are released immediately into your electronic medical record. You may view this report before your referring provider. If you have questions, please contact your health care provider. INDICATION: Chest pain, shortness of breath TECHNIQUE: Chest radiograph 2 views COMPARISON: None FINDINGS: The sensitivity and specificity of the exam are moderately limited by the patient`s body habitus. Mediastinum: Previous median sternotomy and coronary artery bypass grafting (CABG) noted. The heart silhouette is normal in size and morphology. Lung: Both lungs are unremarkable in appearance. No sign of pleural effusion seen. No pneumothorax is identified. Bone and Soft tissue: ACDF of the cervicothoracic junction is noted. IMPRESSION: 1. No acute cardiopulmonary disease is seen. Dictated by Carlos Enrique Rajan MD @ 03/25/2024 9:02:40 PM Dictated by: Carlos Enrique Rajan MD @ 03/25/2024 21:02:43 (Electronically Signed)
== END 2024-03-25 20:35 | disposition home or self-care (01) ==
PROVIDERS: Emergency Provider Emergency Medicine; PCP Family Medicine
DX: J44.9 Chronic obstructive pulmonary disease, unspecified (principal); F41.9 Anxiety disorder, unspecified
CPT/HCPCS: 36415; 71046; 80048; 82803; 83605; 83880; 84145; 84484; 85025; 85379; 87631; 93005; 96374; 96375; 99284; J2919; J3360

== ENCOUNTER 2024-04-11 08:05 | Emergency (ER) | payer OTHER, SELFPAY ==
[2024-04-11] VITALS (13 sets, daily range): BP systolic 97–115; BP diastolic 52–65; PULSE 67–86; RESP 16–20; TEMP 36.1; O2SAT 86–95; BMI 28.8
--- NOTE | 2024-04-11 08:20 | CRLHL7_ITS ---
For Patients: As a result of the Century Cures Act, medical imaging exams and procedure reports are released immediately into your electronic medical record. You may view this report before your referring provider. If you have questions, please contact your health care provider. INDICATION: Shortness of breath. TECHNIQUE: PA and lateral chest x-ray. COMPARISON: March 25, 2024. FINDINGS: Mild linear fibrosis or atelectasis left lung base. Both lungs are otherwise clear. Sternotomy. ACDF of the cervical thoracic junction seen previously. Old left-sided rib fractures. IMPRESSION: No acute cardiopulmonary process identified. No significant change. Dictated by Shahzad Lang MD @ 04/11/2024 9:03:16 AM (Electronically Signed)
--- NOTE | 2024-04-11 08:22 | ED_ITS ---
HPI - General Adult General Chief complaint: Shortness of Breath/Dyspnea Stated complaint: shortness of breath Time Seen by Provider: 04/11/24 08:12 Source: patient Mode of arrival: EMS Limitations: no limitations History of Present Illness HPI narrative: Patient is a 64-year-old female, with a long complicated medical history, presenting today with shortness of breath. Patient states that she has been short of breath for several days now. She is on day 2 of prednisone, not on any antibiotics. She states that she woke up this morning and simply could not breathe so she called the ambulance. She states that she had a DuoNeb on the way here and 1 at home. She also states that she believes she is having a panic attack because she could not breathe, she generally takes alprazolam twice a day and has not had any Apresoline this morning. She has not been having fevers, chills, vomiting. She does have a cough which is chronic. The patient uses oxygen at night but not during the day. Patient presents today 86% on room air. Related Data Home Medications ?Medication ?Instructions ?Recorded ?Confirmed aspirin 81 mg chewable tablet 81 mg PO DAILY 03/02/22 03/25/24 clopidogrel 75 mg tablet (Plavix) 75 mg PO DAILY 03/02/22 03/25/24 ezetimibe 10 mg tablet (Zetia) 10 mg PO DAILY 03/02/22 03/25/24 ipratropium 0.5 mg-albuterol 3 mg 3 ml inhalation Q6H PRN 03/02/22 03/25/24 (2.5 mg base)/3 mL nebulization soln isosorbide mononitrate 60 mg 120 mg PO DAILY 03/02/22 03/25/24 tablet,extended release 24 hr levothyroxine 50 mcg tablet 50 mcg PO DAILY 03/02/22 03/25/24 (Synthroid) magnesium oxide 400 mg PO DAILY 03/02/22 03/25/24 meclizine 25 mg tablet 25 mg PO TID PRN 03/02/22 03/25/24 metoprolol succinate 50 mg 50 mg PO DAILY 03/02/22 03/25/24 tablet,extended release 24 hr naloxone 4 mg/actuation nasal spray 4 mg intranasal Q2-3M PRN 03/02/22 03/25/24 nitroglycerin 0.4 mg sublingual 0.4 mg sublingual Q5M 03/02/22 03/25/24 tablet (Nitrostat) ondansetron HCl 4 mg tablet 4 mg PO Q8H PRN 03/02/22 03/25/24 rosuvastatin 20 mg tablet (Crestor) 20 mg PO HS 03/02/22 03/25/24 sennosides 8.6 mg-docusate sodium 2 tab PO BID 03/02/22 03/25/24 50 mg tablet sodium chloride 0.65 % nasal spray 2 spray intranasal Q2H PRN 03/02/22 03/25/24 aerosol (Nasal [place] (sodium chloride)) albuterol sulfate 90 mcg/actuation 2 puff inhalation Q4H PRN 03/30/22 03/25/24 aerosol inhaler empagliflozin 25 mg tablet 25 mg PO DAILY 12/12/22 03/25/24 (Jardiance) acetaminophen 500 mg tablet 1,000 mg PO TID PRN 10/22/23 03/25/24 alprazolam 0.5 mg tablet,extended 0.5 mg PO Q12H 10/22/23 03/25/24 release 24 hr baclofen 10 mg tablet 10 mg PO BID 10/22/23 03/25/24 cetirizine 10 mg tablet 10 mg PO DAILY 10/22/23 03/25/24 fluticasone fur. 100 mcg-umeclid 1 ea inhalation DAILY 10/22/23 03/25/24 62.5 mcg-vilant 25 mcg inhalat.powder (Trelegy Ellipta) methocarbamol 750 mg tablet 750 mg PO HS 10/22/23 03/25/24 mirtazapine 45 mg tablet 45 mg PO HS 10/22/23 03/25/24 omega 1-lot-dud-fish oil 1,000 mg 1 cap PO HS 10/22/23 03/25/24 (120 mg-180 mg) capsule (Fish Oil) omeprazole 20 mg capsule,delayed 20 mg PO DAILY 10/22/23 03/25/24 release tiotropium bromide 2.5 2 puff inhalation DAILY 10/22/23 03/25/24 mcg/actuation mist for inhalation (Spiriva Respimat) tizanidine 4 mg tablet 4 mg PO Q6H PRN 10/22/23 03/25/24 topiramate 25 mg tablet (Topamax) 25 mg PO DAILY 10/22/23 03/25/24 torsemide 20 mg tablet 20 mg PO DAILY 10/22/23 03/25/24 venlafaxine 75 mg capsule,extended 225 mg PO DAILY 10/22/23 03/25/24 release 24 hr Previous Rx's ?Medication ?Instructions ?Recorded potassium chloride 20 mEq 40 meq (2 x 20 mEq) PO DAILY #60 04/02/22 tablet,extended release(part/cryst) tabs buprenorphine HCl 2 mg sublingual 2 mg sublingual BID #60 tabs 10/28/23 tablet prednisone 10 mg tablet 10 mg PO DIRECTED 13 days #13 10/28/23 tabs Allergies Allergy/AdvReac Type Severity Reaction Status Date / Time sumatriptan Allergy Severe Anaphylaxis Verified 03/25/24 16:43 buspirone Allergy Intermediate Rash Verified 03/25/24 16:43 fentanyl Allergy Intermediate Verified 03/25/24 16:43 gabapentin Allergy Intermediate gi upset Verified 03/25/24 16:43 niacin Allergy Intermediate Verified 03/25/24 16:43 trazodone Allergy Intermediate Verified 03/25/24 16:43 atorvastatin Allergy Mild myalgia Verified 03/25/24 16:43 codeine Allergy Mild itching Verified 03/25/24 16:43 rizatriptan Allergy Mild Flushing Verified 03/25/24 16:43 Review of Systems Status of ROS: Reports: 10 or more systems reviewed and unremarkable except as noted in History and below [facility] Medical History Noncompliance with medication regimen ?Z91.148 - Patient's other noncompliance with medication regimen for other reason (ICD-10) Acute on chronic respiratory failure with hypoxia and hypercapnia ?J96.21 - Acute and chronic respiratory failure with hypoxia (ICD-10) ?J96.22 - Acute and chronic respiratory failure with hypercapnia (ICD-10) Chronic narcotic use ?F11.90 - Opioid use, unspecified, uncomplicated (ICD-10) Hypokalemia ?E87.6 - Hypokalemia (ICD-10) Encephalopathy acute ?G93.40 - Encephalopathy, unspecified (ICD-10) Hyperkalemia ?E87.5 - Hyperkalemia (ICD-10) Hyponatremia ?E87.1 - Hypo-osmolality and hyponatremia (ICD-10) Coronary artery disease ?I25.10 - Atherosclerotic heart disease of platinum coronary artery without angina pectoris (ICD-10) Congestive heart failure ?I50.9 - Heart failure, unspecified (ICD-10) Diabetes mellitus type 2 in obese ?E11.69 - Type 2 diabetes mellitus with other specified complication (ICD-10) ?E66.9 - Obesity, unspecified (ICD-10) Respiratory failure ?J96.90 - Respiratory failure, unspecified, unspecified whether with hypoxia or hypercapnia (ICD-10) Acute hyponatremia ?E87.1 - Hypo-osmolality and hyponatremia (ICD-10) Congestive heart failure ?I50.9 - Heart failure, unspecified (ICD-10) Hypothyroidism ?E03.9 - Hypothyroidism, unspecified (ICD-10) Type 2 diabetes mellitus with circulatory disorder, without long-term current use of insulin ?E11.59 - Type 2 diabetes mellitus with other circulatory complications (ICD- 10) Graves disease ?E05.00 - Thyrotoxicosis with diffuse goiter without thyrotoxic crisis or storm (ICD-10) SOCORRO (obstructive sleep apnea) ?G47.33 - Obstructive sleep apnea (adult) (pediatric) (ICD-10) CAD (coronary artery disease) ?I25.10 - Atherosclerotic heart disease of platinum coronary artery without angina pectoris (ICD-10) Recurrent major depression ?F33.9 - Major depressive disorder, recurrent, unspecified (ICD-10) History of nicotine dependence ?Z87.891 - Personal history of nicotine dependence (ICD-10) Chronic pain syndrome ?G89.4 - Chronic pain syndrome (ICD-10) Arthropathy of spinal facet joint ?M47.819 - Spondylosis without myelopathy or radiculopathy, site unspecified (ICD-10) Allergic rhinitis due to pollen ?J30.1 - Allergic rhinitis due to pollen (ICD-10) Insomnia ?G47.00 - Insomnia, unspecified (ICD-10) Hyperlipidemia ?E78.5 - Hyperlipidemia, unspecified (ICD-10) Lumbar spinal stenosis ?M48.061 - Spinal stenosis, lumbar region without neurogenic claudication (ICD-10) Opioid dependence ?F11.20 - Opioid dependence, uncomplicated (ICD-10) Refractory migraine ?G43.919 - Migraine, unspecified, intractable, without status migrainosus (ICD-10) Secondary polycythemia ?D75.1 - Secondary polycythemia (ICD-10) PTSD (post-traumatic stress disorder) ?F43.10 - Post-traumatic stress disorder, unspecified (ICD-10) Panic disorder ?F41.0 - Panic disorder [episodic paroxysmal anxiety] (ICD-10) Anxiety ?F41.9 - Anxiety disorder, unspecified (ICD-10) GERD (gastroesophageal reflux disease) ?K21.9 - Gastro-esophageal reflux disease without esophagitis (ICD-10) Chest pain ?R07.9 - Chest pain, unspecified (ICD-10) Edema ?R60.9 - Edema, unspecified (ICD-10) Acute on chronic heart failure with preserved ejection fraction ?I50.33 - Acute on chronic diastolic (congestive) heart failure (ICD-10) CO2 retention ?E87.2 - Acidosis (ICD-10) Cluster B personality disorder ?F60.89 - Other specific personality disorders (ICD-10) Leukocytosis ?D72.829 - Elevated white blood cell count, unspecified (ICD-10) Acute and chronic respiratory failure (ftnko-cq-pjgfjqy) ?J96.20 - Acute and chronic respiratory failure, unspecified whether with hypoxia or hypercapnia (ICD-10) COPD (chronic obstructive pulmonary disease) ?J44.9 - Chronic obstructive pulmonary disease, unspecified (ICD-10) Surgical History H/O heart artery stent ?Z95.5 - Presence of coronary angioplasty implant and graft (ICD-10) Failed CABG (coronary artery bypass graft) ?T82.218A - Other mechanical complication of coronary artery bypass graft, initial encounter (ICD-10) Social History Narrative: Patient lives alone in [place]. Former smoker. She does not drink alcohol. 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 Requests Full Code status What is your current living situation?: I presently have a place to live Problems where you live: no known problems Problems where you live details: NA In the past 12 months, utilities in danger of being shut off: no In past 12 months, lack of transportation kept you from medical appts, meetings, work, or getting things needed for daily living: no In the past 12 mos, have been you worried that your food would run out before you had money to buy more?: never true In the past 12 mos, the food you bought just didn't last and you didn't have money to buy more?: never true Highest level of school completed/degree received: some college, no degree Smoking Status: Former smoker What tobacco products do you use: cigarettes Smoking quit date/years: >15 years ago Do you use any of these nicotine containing products: None Second hand tobacco smoke exposure: Yes How often do you have a drink containing alcohol: never How often do you have six or more drinks on one occasion: Never AUDIT-C Alcohol total score: 0 Non-prescribed substance use: denies use Caffeine: Yes How often does anyone, including family, friends and others, physically hurt you : never How often does anyone, including family, friends and others, insult or talk down to you: never How often does anyone, including family, friends and others, threaten you with harm: never How often does anyone, including family, friends and others, scream or curse at you: never service: No Exam Narrative: Exam Narrative: Overweight, well-developed patient, tearful. Alert and oriented x3. Answers questions appropriately. Thoughts are goal oriented and rational. No tangential or magical thinking noted. HEENT: Normocephalic atraumatic. Pupils are equally round reactive to light. Extraocular muscles are intact. Conjunctivae are moist without any icterus noted. Moist mucous membranes. Neck is soft. Cardiovascular: Heart is regular rate and rhythm S1 and S2 are present without any murmurs. Lungs: Patient has decreased breath sounds bilaterally. She has no obvious wheezing or crackles appreciated. Abdomen: Soft and nontender nondistended with normal bowel sounds. Extremities: Bilateral lower extremities are without edema. Normal DP and PT pulses. Skin: Well perfused without any obvious rashes. Const: Vital Signs, click to edit/add: Vital Signs - 24 hr 04/11/24 08:11 04/11/24 08:15 04/11/24 08:20 Temperature 97.0 F L Pulse Rate Pulse Rate [Pulse Oximeter] 86 Respiratory Rate 18 Blood Pressure Blood Pressure [Ri ght Upper Arm] 115/55 L Pulse Oximetry 86 L 86 L 93 Oxygen Delivery Me thod Room Air Nasal Cannula Oxygen Flow Rate 1 04/11/24 08:21 04/11/24 08:32 04/11/24 08:45 Temperature Pulse Rate 81 74 73 Pulse Rate [Pulse Oximeter] Respiratory Rate 20 18 Blood Pressure 103/65 Blood Pressure [Ri ght Upper Arm] Pulse Oximetry 93 93 92 Oxygen Delivery Me thod Nasal Cannula Nasal Cannula Oxygen Flow Rate 1 0.5 04/11/24 08:46 04/11/24 09:02 04/11/24 09:31 Temperature Pulse Rate 74 68 Pulse Rate [Pulse Oximeter] Respiratory Rate 18 18 16 Blood Pressure 97/55 L 97/52 L Blood Pressure [Ri ght Upper Arm] Pulse Oximetry 95 90 90 Oxygen Delivery Me thod Nasal Cannula Oxygen Flow Rate 2 04/11/24 10:02 Temperature Pulse Rate 67 Pulse Rate [Pulse Oximeter] Respiratory Rate 16 Blood Pressure 103/54 L Blood Pressure [Ri ght Upper Arm] Pulse Oximetry 92 Oxygen Delivery Me thod Oxygen Flow Rate Course Course ED Course: Patient very tearful and anxious upon arrival. I did give her a dose of oral alprazolam and she felt significantly better. Patient is placed on 2 L nasal cannula oxygen saturation goes to 94%. This is decreased to 1 L where she remained at 93%. This was further decreased to 0.5 L where she also remains at 93%. She was subsequently removed for oxygen and her oxygen saturation fluctuated between 88-91%. EKG, read by me, shows normal sinus rhythm with a pulse of 79. Chest x-ray without any new infiltrates or abnormalities. CBC was unremarkable. VBG showed a pH that was normal at 7.4, pCO2 at 62 and HC03 of 39. chloride of 95 and a carbon dioxide of 37. Normal renal and liver functions. Negative troponin. Unremarkable BNP. Negative triple swab. Discussed results with the patient. Appears that her labs are sitting very closely around her baseline. She is already on high dose steroid taper and has DuoNebs that she takes. We discussed discharge home at this time which she felt comfortable with. Do recommend she return if she feels like things are getting worse instead of better. Also recommend she follow up with her primary care provider early next week. Vital Signs Vital signs: Initial Vital Signs Temperature 97.0 F L 04/11/24 08:11 Temperature Source Temporal Artery Scan 04/11/24 08:11 Pulse Rate 86 04/11/24 08:11 Pulse Rhythm Regular 04/11/24 08:11 Respiratory Rate 18 04/11/24 08:11 Blood Pressure 115/55 L 04/11/24 08:11 Blood Pressure Mean 75 04/11/24 08:11 Blood Pressure Position Supine 04/11/24 08:11 Pulse Oximetry 86 L 04/11/24 08:11 Oxygen Delivery Method Room Air 04/11/24 08:11 Vital Signs Temperature 97.0 F L 04/11/24 08:11 Pulse Rate 86 04/11/24 08:11 Respiratory Rate 18 04/11/24 08:11 Blood Pressure 115/55 L 04/11/24 08:11 Pulse Oximetry 86 L 04/11/24 08:11 Oxygen Delivery Method Room Air 04/11/24 08:11 Temperature 97.0 F L 04/11/24 08:11 Pulse Rate 67 04/11/24 10:02 Respiratory Rate 16 04/11/24 10:02 Blood Pressure 103/54 L 04/11/24 10:02 Pulse Oximetry 92 04/11/24 10:02 Oxygen Delivery Method Nasal Cannula 04/11/24 08:46 Oxygen Flow Rate 2 04/11/24 08:46 Medications Administered Medications: Discontinued Medications Generic Name Dose Route Start Last Admin Trade Name Freq PRN Reason Stop Dose Admin Alprazolam 0.5 mg 04/11/24 08:21 04/11/24 08:28 Alprazolam 0.25 Mg Tablet PO 04/11/24 08:22 0.5 mg ONCE ONE Administration Medical Decision Making [facility] Narrative Medical decision making narrative: 64-year-old female with COPD, anxiety. Presenting with shortness of breath. Patient did well maintaining her oxygenation on room air. Labs are sitting around her baseline. At this time I do think it is safe for her to go home. Patient understands to return if she feels worse and and she is a patient who does frequent the ER so I have no doubt that she will indeed return if she is not feeling better. Patient already on treatment. Medical Records Medical records reviewed: Yes I reviewed the patient's medical records Lab Data Lab results reviewed: Yes I reviewed the patient's lab results Labs: Lab Results 04/11/24 04/11/24 Range/Units 08:15 08:38 WBC 13.37 H (4.50-11.00) K/uL RBC 4.48 (4.00-5.20) m/uL Hgb 13.7 (12.0-16.0) gm/dL Hct 41.6 (33.0-51.0) % MCV 93 (80-100) fL MCH 31 (26-34) pg MCHC 33 (32-36) gm/dL RDW Coeff of Renetta 12.7 (11.5-15.5) % Plt Count 255 (140-440) K/uL Neut % (Auto) 72.1 H (42.0-72.0) % Lymph % (Auto) 19.0 L (20-44) % [place] % (Auto) 8.2 (0.0-11.0) % Eos % (Auto) 0.0 (0.0-7.0) % Baso % (Auto) 0.3 (0.0-3.0) % Neut # (Auto) 9.60 H (1.7-7.0) K/uL Lymph # (Auto) 2.50 (0.90-2.90) K/uL [place] # (Auto) 1.10 H (0.00-0.90) K/UL Eos # (Auto) 0.00 (0.00-0.50) K/uL Baso # (Auto) 0.00 (0.00-0.30) K/uL Abs Immat Gran (auto) 0.10 (0.00-0.30) K/uL Imm/Tot Granulo (auto) 0.4 % VBG pH 7.401 (7.32-7.43) VBG pCO2 62 H* (40-50) mmHG VBG pO2 35.2 (25-47) mmHG VBG HCO3 39 H (21-28) mmol/L Sodium 135 (135-149) mmol/L Potassium 3.9 (3.6-5.1) mmol/L Chloride 95 L (96-114) mmol/L Carbon Dioxide 37 H (20-32) mmol/L Anion Gap 3 L (7-15) mEq/L BUN 17 (7-30) mg/dL Creatinine 0.6 (0.5-1.5) mg/dL Estimated Creat Clear 48.43 Estimated GFR 100 ml/min Glucose 154 H (60-115) mg/dL Lactate 1.7 (0.5-1.9) mmol/L Calcium 8.6 (8.4-10.6) mg/dL Magnesium 2.2 (1.5-2.6) mg/dL Total Bilirubin 0.3 (0.1-1.5) mg/dL Direct Bilirubin 0.3 (0.0-0.5) mg/dL AST 24 (12-35) U/L ALT 21 (4-35) U/L Alkaline Phosphatase 57 (40-150) U/L Troponin I < 0.01 L (0.01-0.04) ng/mL NT-Pro-B Natriuret Pep 493 pg/mL Total Protein 6.6 (6.0-8.3) g/dL Albumin 4.2 (3.3-5.0) g/dL SARS-CoV-2 (PCR) Negative SARS-CoV-2 (Negative) Influenza Type A (PCR) Negative PCR FLU A (Negative) Influenza Type B (PCR) Negative PCR FLU B (Negative) RSV (PCR) Negative PCR RSV (Negative) Imaging Data Chest x-ray: Attestation: I have reviewed the pertinent imaging results. Radiologist's impression: PA and lateral chest x-ray. COMPARISON: March 25, 2024. FINDINGS: Mild linear fibrosis or atelectasis left lung base. Both lungs are otherwise clear. Sternotomy. ACDF of the cervical thoracic junction seen previously. Old left-sided rib fractures. IMPRESSION: No acute cardiopulmonary process identified. No significant change. ECG Data Attestation: I personally reviewed and interpreted this ECG as follows: Discharge Plan Discharge Clinical Impression: Anxiety COPD (chronic obstructive pulmonary disease) Qualifiers: COPD type: unspecified COPD Qualified Code(s): J44.9 - Chronic obstructive pulmonary disease, unspecified Patient Disposition: Home, Self-Care Condition: Stable Additional Instructions: Continue your prednisone therapy as prescribed. Continue DuoNebs as needed. Recommend you follow-up with primary care provider early next week. Return to the ER if you feel like you are getting worse instead of better. Prescriptions: No Action ipratropium-albuterol 0.5 mg-3 mg(2.5 mg base)/3 mL solution for nebulization 3 ml inhalation Q6H PRN aspirin 81 mg tablet,chewable 81 mg PO DAILY naloxone 4 mg/actuation spray,non-aerosol 4 mg intranasal Q2-3M PRN Rx Instructions: spray 1 dose into ONE nostril; alternate nostrils w each dose until help arrives sennosides-docusate sodium 8.6-50 mg tablet 2 tab PO BID levothyroxine [Synthroid] 50 mcg tablet 50 mcg PO DAILY rosuvastatin [Crestor] 20 mg tablet 20 mg PO HS clopidogrel [Plavix] 75 mg tablet 75 mg PO DAILY nitroglycerin [Nitrostat] 0.4 mg tablet, sublingual 0.4 mg sublingual Q5M Rx Instructions: do not exceed 3 doses per episode ezetimibe [Zetia] 10 mg tablet 10 mg PO DAILY isosorbide mononitrate 60 mg tablet extended release 24 hr 120 mg PO DAILY magnesium oxide 400 mg magnesium capsule 400 mg PO DAILY Nasal [place] (sodium chloride) 0.65 % aerosol,spray 2 spray intranasal Q2H PRN meclizine 25 mg tablet 25 mg PO TID PRN metoprolol succinate 50 mg tablet extended release 24 hr 50 mg PO DAILY ondansetron HCl 4 mg tablet 4 mg PO Q8H PRN acetaminophen 500 mg tablet 1,000 mg PO TID PRN alprazolam 0.5 mg tablet extended release 24 hr 0.5 mg PO Q12H baclofen 10 mg tablet 10 mg PO BID cetirizine 10 mg tablet 10 mg PO DAILY methocarbamol 750 mg tablet 750 mg PO HS Trelegy Ellipta 100-62.5-25 mcg blister with device 1 ea inhalation DAILY mirtazapine 45 mg tablet 45 mg PO HS omega 5-moj-rjf-fish oil [Fish Oil] 1,000 mg (120 mg-180 mg) capsule 1 cap PO HS omeprazole 20 mg capsule,delayed release(DR/EC) 20 mg PO DAILY tizanidine 4 mg tablet 4 mg PO Q6H PRN Spiriva Respimat 2.5 mcg/actuation mist 2 puff inhalation DAILY topiramate [Topamax] 25 mg tablet 25 mg PO DAILY venlafaxine 75 mg capsule,extended release 24hr 225 mg PO DAILY torsemide 20 mg tablet 20 mg PO DAILY buprenorphine HCl 2 mg Tablet, Sublingual 2 mg sublingual BID Qty: 60 0RF prednisone 10 mg tablet 10 mg PO DIRECTED 13 Days Qty: 13 0RF Rx Instructions: 3 tabs daily x3d, then 2 tabs daily x3d, then 1 tab daily x7d albuterol sulfate 90 mcg/actuation HFA aerosol inhaler 2 puff INHALATION Q4H PRN potassium chloride 20 mEq tablet,ER particles/crystals 40 meq PO DAILY Qty: 60 0RF Jardiance 25 mg tablet 25 mg PO DAILY Follow Up/Referrals: Moreno Dill MD [Primary Care Provider] - Stand Alone Forms: [employer] Info Instructions
[2024-04-11] MEDS: ALPRAZolam 0.25 MG TABLET 0.5 MG PO (08:28)
--- OUTSIDE RECORDS SUMMARY | 2024-04-11 08:33 | XMS_ITS | Clinical Summary ---
Author Organization [facility] Address [place], [place] [address] Care Team Providers Care Broom Man Name Role Phone Moreno Dill MD Primary [...] chewable 81 mg chewable tabletIndications :CAD in [place] artery Chew 1 Tablet (81 mg) by [...] 22 Active Additional Information Patient taking differently:2 Martell NasalBID PRN, Informant: Patient's Recall, Reported on [...] injection sites. 6 mL 02/19/20 24 Active albuterol-ipratro pium (DUONEB) (2.5-0.5 mg) [...] type, unspecified whether angina present, unspecified whether [place] or transplanted heart Take 1 Tablet (75 mg) by mouth once daily in the morning. 90 Tablet 3 02/21/20 24 Active ezetimibe (ZETIA) 10 mg tabletIndications :Hyperlipidemia, unspecified hyperlipidemia type Take 1 Tablet (10 mg) by mouth at bedtime. 30 Tablet 02/21/20 24 Active isosorbide mononitrate (IMDUR) 60 mg extended release tablet 24 hourIndications:C AD in [place] artery Take 2 Tablets (120 mg) by [...] XL) 50 mg sustained-release tabletIndications :CAD in [place] artery,AP (angina pectoris) (HC),Arterioscler otic heart disease Take 1 Tablet (50 mg) by mouth once daily. 30 Tablet 02/21/20 24 Active mirtazapine (REMERON) 45 mg tabletIndications :Psychophysiologi kassy insomnia,Posttrau matic stress disorder Take 1 Tablet (45 mg) by mouth at bedtime. 90 Tablet 02/21/20 24 Active nitroglycerin (NITROSTAT) 0.4 mg sublingual tabletIndications :CAD in [place] artery Place 1 Tablet (0.4 mg) under [...] meal. 90 Tablet 1 03/23/20 24 Active albuterol HFA (PRO-AIR; VENTOLIN; PROVENTIL) 90 mcg/actuation inhalerIndication s:COPD exacerbation (HC) Inhale 1-2 puffs every 4 (four) hours as needed for shortness of breath. 54 g 1 04/02/20 24 Active buprenorphine HCL (SUBUTEX) 2 mg [...] mouth two times daily. 60 Tablet 2 01/04/20 24 024 Discontinued(*P atient states no longer [...] 024 Discontinued(*P atient states no longer taking) albuterol HFA (Ventolin HFA) 90 mcg/actuation inhalerIndication s:COPD exacerbation (HC) Inhale 1-2 Puffs by mouth every 4 hours if needed for Shortness Of Breath. 18 g 02/21/20 24 024 Discontinued bisacodyL (DULCOLAX) 10 mg suppositoryIndica tions:Constipatio n, [...] 024 Discontinued(*A vailability/For mulary change/Cost of medication) azithromycin (Zithromax Z-Armani) 250 mg tabletIndications :Pneumonitis Two tablets the first day, one daily days 2-5 6 Tablet 03/23/20 24 024 Active Problems Problem Noted Date Diagnosed Date [...] 10/03/04 - S/P CABG in 2004 at [facility] (VG to RCA and VG to mLAD) - 02/17/20: complex high risk PCI; hopland LAD reconstruction with CHAPIN X 2; SVG [...] Encounters Date Type Department Care Team Description 03/30/2024 Refill [facility] [address] [place] [address] Moreno Dill MD Refill Request (Albuterol Hfa) 03/25/2024 9:15 AM CDT Office Visit [facility] [address] [place] [address] Anastasiia Reeves MD Medication Management (Things are not good/Tried [facility] and made things worse/*Needs zyprexa added to allergies*) 03/25/2024 Orders Only [facility] Scanner 1 scan: (1-Ord) KATIUSKA, XR CHEST 2V, 03/25/2024 03/25/2024 Travel 03/23/2024 3:30 PM CDT Ancillary Procedure [facility] [address] [facility] [address] 03/23/2024 2:30 PM CDT Office Visit [facility] [address] [facility] [address] Moreno Dill MD Concerns (Chest congestion, cough, heart palpitations started a couple weeks ago after increasing Olanzapine); Fatigue (Weakness and tired) 03/23/2024 Travel 03/18/2024 Transcribe Orders [facility] [address] [place] [address] [address] [place] [address] Kermit Benral PA 03/18/2024 Transcribe Orders [facility] [address] [place] [address] Kermit Bernal, PA 03/18/2024 Refill [facility] [address] [place] [address] Moreno Dill MD Refill Request (Trelegy Ellipta) 03/06/[address] [place] [address] Brady Pierce MD Medication Management 02/19/2024 Refill [facility] [address] [place] [address] Moreno Dill MD Refill Request 02/11/2024 2:30 PM CDT Office Visit [facility] [address] [place] [phone] Brady Pierce MD Follow Up (CAD) 02/11/[address] [place] [address] Brady Pierce MD Medication Management (PCSK-9) 02/11/2024 Travel 02/05/2024 Refill [facility] [address] [place] [address] Moreno Dill MD Refill Request (Ventolin Hfa) 02/05/2024 Telephone [facility] [address] [place] [address] Moreno Dill MD Medication Management (empagliflozin (Jardiance) 25 mg tablet ) 02/04/2024 Refill [facility] [address] [place] [address] Moreno Dill MD Refill Request (Levothyroxine) 02/03/2024 2:15 PM CDT Procedure Only [facility] [address] [facility] [address] [place] [address] Jamey Snell MD Recheck (Right Shoulder ) 02/03/2024 Telephone [facility] [address] [place] [address] Jamey Snell MD Need Meds 02/03/2024 Travel 01/22/2024 2:00 PM CDT Orders Only [facility] [address] [place] [address] Lab, [place] Outside Order (Ordered by Yolis Steele) 01/22/2024 Travel 01/13/2024 Orders Only [facility] [address] [place] [address] Moreno Dill MD Outside Order (Ordered by Yolis Steele A... from Last 3 Months Immunizations Name Administration Dates Next Due COVID-19 vaccine (SoundHound-Bio NTech 30mcg/0.3mL) 12YO+ BIVALENT PF, MDV 02/22/2023,07/23/2022 COVID-19 vaccine (Pfizer-Bio NTech 30mcg/0.3mL) 12YO+ MARY-SUCROSE PF, MDV 03/06/2022,10/16/2021 COVID-19 vaccine (GooddlerBio NTech 30mcg/0.3mL) PF, MDV 01/11/2021,12/06/2020 Hepatitis B (Adult) 07/17/2000,11/22/1999,1999 Hepatitis B, Unspecified 07/17/2000,11/22/1999,0 10/10/1999 Influenza A (H1N1), Inactivated 07/13/2010 Influenza Intradermal PF 18-64 yrs 06/09/2013 Influenza Virus, Unspecified 07/06/2019, 06/29/2016,06/21/2015,2013,06/09/2013,07/18/2012,06/19/2011,1 ,07/13/2010,05/12/2009, 998 Influenza, IIV3 (Age >=3 years) 07/18/2012,05/12 Influenza, IIV4 05/17/2023,,06/09/2021,2019,07/06/2019,08/13/2018,06/29/2016 Influenza, IIV4 (=>6mos) MDV 06/21/2015 Pneumococcal Conj [...] 10/08/2023, 12/24/2012 Medical Devices Implanted Type Area Time Study Analyst Device Identifier Shelf Expiration Date Model / Serial / Lot [id number] 15cc Mtf Chips [facility] [[id number]] Implanted:Qty: 1 on 09/19/2016 by Dat Hazel MD at [facility] Explanted:at [facility] (Quantity not on file) N/A: Spine Musculoskeletal Transplant 01/30/2017 [id number] / [id number] / [id number] 1cc [employer] Plus Paste Dbm Implanted:Qty: 1 on 09/19/2016 by Dat Hazel MD at [facility] Explanted:at [facility] (Quantity not on file) N/A: Spine Medtronic Spine/Ortho 04/05/2018 [id number] / [id number] / Screw Cerv Ant 4x14mm Atlantistranslational Fa Slf Drill - [id number] Implanted:Qty: 4 on 09/19/2016 by Dat Hazel MD at [facility] N/A: Spine Medtronic Spine/Ortho [id number]# / / Screw Occipital 4.5x6mm Vertexselect - [id number] Implanted:Qty: 2 on 09/19/2016 by Dat Hazel MD at [facility] N/A: Spine Medtronic Spine/Ortho [id number]# / / Plate Cerv 2lvl 40mm [place] Vision Elite Ant - [id number] Implanted:Qty: 1 on 09/19/2016 by Dat Hazel MD at [facility] N/A: Spine Medtronic Spine/Ortho [id number]# / / Spacer [id number] Implanted:Qty: 1 on 09/19/2016 by Dat Hazel MD at [facility] N/A: Spine [id number] / / 70CV Description:SPACER [id number] Spacer [id number] Implanted:Qty: 1 on 09/19/2016 by Dat Hazel MD at [facility] N/A: Spine [id number] / / 32CX Description:SPACER [id number] Procedures Procedure Name Priority Date/Time Associated Diagnosis Comments MD READING EKG - NO CHARGE, COMP ONLY Routine 03/25/2024 4:39 PM CDT Chest pain in adult EKG 12 LEAD Routine 03/25/2024 4:39 PM CDT Chest pain in adult SCAN-RADIOLOGY REPORT 03/25/2024 12:00 AM CDT XR CHEST 2 VIEWS PA AND LATERAL [...] HIV-1/O/2, 4TH GENERATION Routine 10/16/2022 1:42 PM COMMERCIAL COUNSEL Screening for HIV (human immunodeficiency virus) XR MAMMO ROMY BILAT DIAG Routine 08/22/2022 2:50 PM COMMERCIAL COUNSEL Mass of upper outer quadrant of right breast ANTI HCV Routine 10/06/2020 12:55 PM COMMERCIAL COUNSEL Need for hepatitis C screening test from Last 3 Months or Most Recently Relevant to Health Maintenance Results * EKG 12 LEAD (03/25/2024 4:39 PM CDT) Moreno Dill MD EKG ORD * MD READING EKG - NO CHARGE, COMP ONLY (03/25/2024 4:39 PM CDT) Moreno Dill MD PB - PROVIDER READINGS * SCAN-RADIOLOGY REPORT (03/25/2024 12:00 AM CDT) Anatomical Region Laterality Modality Other Scanner OTHER * XR CHEST 2 VIEWS PA AND [...] 11.0 thou/cu mm 03/23/2024 3:29 PM CDT [facility] RED BLOOD COUNT 4.46 4.00 - 5.20 mil/cu mm 03/23/2024 3:29 PM CDT [facility] HEMOGLOBIN 13.8 12.0 - 16.0 g/dL 03/23/2024 3:29 PM CDT [facility] HEMATOCRIT 42.2 33.0 - 51.0 % 03/23/2024 3:29 PM CDT [facility] MCV 95 80 - 100 fL 03/23/2024 3:29 PM CDT [facility] MCH 30.9 26.0 - 34.0 pg 03/23/2024 3:29 PM CDT [facility] MCHC 32.7 32.0 - 36.0 g/dL 03/23/2024 3:29 PM CDT [facility] RDW 13.4 11.5 - 15.5 % 03/23/2024 3:29 PM CDT [facility] PLATELET COUNT 239 140 - 440 thou/cu mm 03/23/2024 3:29 PM CDT [facility] MPV 9.5 6.5 - 11.0 fL 03/23/2024 3:29 PM CDT [facility] % NEUT 73.1 % 03/23/2024 3:29 PM CDT [facility] % LYMPH 17.5 % 03/23/2024 3:29 PM CDT [facility] % MONO 9.1 % 03/23/2024 3:29 PM CDT [facility] % EOS 0.0 % 03/23/2024 3:29 PM CDT [facility] % BASO 0.3 % 03/23/2024 3:29 PM CDT [facility] ABSOLUTE NEUTROPHILS 8.5(H) 1.7 - 7.0 thou/cu mm 03/23/2024 3:29 PM CDT [facility] ABSOLUTE LYMPHOCYTES 2.0 0.9 - 2.9 thou/cu mm 03/23/2024 3:29 PM CDT [facility] ABSOLUTE MONOCYTES 1.1(H) <0.9 thou/cu mm 03/23/2024 3:29 PM CDT [facility] ABSOLUTE EOSINOPHILS 0.0 <0.5 thou/cu mm 03/23/2024 3:29 PM CDT [facility] ABSOLUTE BASOPHILS 0.0 <0.3 thou/cu mm 03/23/2024 3:29 PM CDT [facility] Blood BLOOD SPECIMEN / Unknown Venipuncture / Unknown 03/23/2024 3:25 PM CDT 03/23/2024 3:25 PM CDT Moreno Dill MD HEMATOLOGY Performing Organization Address City/State/[facility] Co de Phone Number [facility] [address] [place] [address], * VITAMIN D 25 (DEFICIENCY) (01/22/2024 1:59 PM CDT) [facility] VITAMIN D TOTAL 42.2 20.0 - 80.0 ng/mL 01/22/2024 10:46 PM CDT [facility] Blood BLOOD SPECIMEN / Unknown Venipuncture / Unknown 01/22/2024 1:59 PM CDT 01/22/2024 2:00 PM CDT Narrative [facility] - 01/22/2024 10:46 PM CDT ? Vitamin D Status Deficiency: ? <20 ng/mL Insufficiency: ?20-29 ng/mL Sufficiency: ?30-80 ng/mL Possible Toxicity: ??>80 ng/mL Based on [employer] recommendations Biotin supplements may cause clinically significant interference for this test assay. ??If interference is suspected, it is strongly recommended that biotin is discontinued for at least one week prior to retesting. Moreno Dill MD SEND OUTS Performing Organization Address [facility] Co de Phone Number [facility] [address] [place] [address], * TSH (01/22/2024 1:59 PM CDT) TSH 0.61 0.27 - 4.20 uIU/mL 01/22/2024 10:55 PM CDT [facility] Blood BLOOD SPECIMEN / Unknown Venipuncture / Unknown 01/22/2024 1:59 PM CDT 01/22/2024 2:[address] [facility] - 01/22/2024 10:55 PM CDT In Adults, TSH values between 5.00 and 10.00 uIU/ml do not necessarily indicate the presence of Hypothyroidism. Correlation with clinical findings such as presence of goiter and/or Thyroperoxidase (TPO) Antibody may be helpful. For more information please refer to SPENCER 2004; 291: 228-238. Moreno Dill MD CHEMISTRY Performing Organization Address [facility]/ZIP Co de Phone Number [facility] [address] [place] [address], * IRON (01/22/2024 1:59 PM CDT) IRON 56 37 - 145 ug/dL 01/22/2024 10:46 PM CDT [facility] Blood BLOOD SPECIMEN / Unknown Venipuncture / Unknown 01/22/2024 1:59 PM CDT 01/22/2024 2:00 PM CDT Moreno Dill MD CHEMISTRY Performing Organization Address [facility] Co de Phone Number [facility] [address] [address], [place] * T3,TOTAL (01/22/2024 1:59 PM CDT) T3,TOTAL 86 85 - 202 ng/dL 01/22/2024 10:45 PM CDT [facility] Blood BLOOD SPECIMEN / Unknown Venipuncture / Unknown 01/22/2024 1:59 PM CDT 01/22/2024 2:00 PM CDT Moreno Dill MD CHEMISTRY Performing Organization Address [facility] Co de Phone Number [facility] [address] [address], [place] * T4,FREE (01/22/2024 1:59 PM CDT) T4,FREE 1.14 0.93 - 1.70 ng/dL 01/22/2024 10:45 PM CDT [facility] Blood BLOOD SPECIMEN / Unknown Venipuncture / Unknown 01/22/2024 1:59 PM CDT 01/22/2024 2:00 PM CDT Moreno Dill MD CHEMISTRY Performing Organization Address City/[facility] Co de Phone Number [facility] [address] [address], [place] * MAGNESIUM (01/22/2024 1:59 PM CDT) MAGNESIUM 2.2 1.6 - 2.4 mg/dL 01/22/2024 10:45 PM CDT [facility] Blood BLOOD SPECIMEN / Unknown Venipuncture / Unknown 01/22/2024 1:59 PM CDT 01/22/2024 2:00 PM CDT Moreno Dill MD CHEMISTRY [facility] [address] [place] [address], * (ABNORMAL) HEMOGLOBIN A1C MONITORING (POCT) (01/22/2024 1:59 PM CDT) HEMOGLOBIN A1C MONITORING (POCT) 7.9(H) <=6.4 % 01/22/2024 2:09 PM CDT [facility] Blood BLOOD SPECIMEN / Unknown Venipuncture / Unknown 01/22/2024 1:59 PM CDT 01/22/2024 2:00 PM CDT Narrative [facility] - 01/22/2024 2:09 PM CDT ? (<=6.9%) [...] Anemias, Splenectomy ? Moreno Dill MD CHEMISTRY [facility] [address] [place] [address], * FOLIC ACID (01/22/2024 1:59 PM CDT) FOLIC ACID 13.2 4.6 - 34.8 ng/mL 01/22/2024 10:46 PM CDT [facility] Blood BLOOD SPECIMEN / Unknown Venipuncture / Unknown 01/22/2024 1:59 PM CDT 01/22/2024 2:[address] [facility] - 01/22/2024 10:46 PM CDT Biotin supplements may cause clinically significant interference for this test assay. ??If interference is suspected, it is strongly recommended that biotin is discontinued for at least one week prior to retesting. Moreno Dill MD CHEMISTRY Performing Organization Address [facility] Co de Phone Number [facility] [address] [place] [address], * VITAMIN B12 (01/22/2024 1:59 PM CDT) Pathologist [facility] VITAMIN B12 587 232 - 1,245 pg/mL 01/22/2024 10:46 PM CDT [facility] Blood BLOOD SPECIMEN / Unknown Venipuncture / Unknown 01/22/2024 1:59 PM CDT 01/22/2024 2:[address] [facility] - 01/22/2024 10:46 PM CDT Biotin supplements may cause clinically significant interference for this test assay. ??If interference is suspected, it is strongly recommended that biotin is discontinued for at least one week prior to retesting. Moreno Dill MD CHEMISTRY Performing Organization Address [facility] Co de Phone Number [facility] [address] [place] [address], * LIPID PANEL (01/22/2024 1:59 PM CDT) CHOLESTEROL,TOTAL 171 100 - 199 mg/dL 01/22/2024 10:45 PM CDT [facility] Comment: Cholesterol, Total Reference Ranges Desirable <200 mg/dL Borderline 200-239 mg/dL High >=240 mg/dL TRIGLYCERIDES 149 <150 mg/dL 01/22/2024 10:45 PM CDT [facility] HDL CHOLESTEROL 63 >40 mg/dL 10:45 PM CDT [facility] NON-HDL CHOLESTEROL 108 <145 mg/dl 01/22/2024 10:45 PM CDT [facility] CHOL/HDL RATIO 2.71 <4.50 01/22/2024 10:45 PM CDT [facility] LDL CHOLESTEROL 78 <=130 mg/dL 01/22/2024 10:45 PM CDT [facility] VLDL CHOLESTEROL 30 <=30 mg/dL 01/22/2024 10:45 PM CDT [facility] PROVIDER ORDERED STATUS FASTING 01/22/2024 10:45 PM CDT [facility] Blood BLOOD SPECIMEN / Unknown Venipuncture / Unknown 01/22/2024 1:59 PM CDT 01/22/2024 2:00 PM CDT Moreno Dill MD CHEMISTRY [facility] [address] [place] [address], * (ABNORMAL) COMP METABOLIC PANEL (01/22/2024 1:59 PM CDT) SODIUM 140 136 - 145 mmol/L 01/22/2024 10:45 PM CDT [facility] POTASSIUM 4.8 3.5 - 5.1 mmol/L 01/22/2024 10:45 PM CDT [facility] CHLORIDE 102 98 - 107 mmol/L 01/22/2024 10:45 PM CDT [facility] CO2,TOTAL 28 22 - 29 mmol/L 01/22/2024 10:45 PM CDT [facility] ANION GAP 10 5 - 18 01/22/2024 10:45 PM CDT [facility] GLUCOSE 150(H) 70 - 99 mg/dL 01/22/2024 10:45 PM CDT [facility] CALCIUM 9.4 8.8 - 10.2 mg/dL 01/22/2024 10:45 PM CDT [facility] BUN 11 8 - 23 mg/dL 01/22/2024 10:45 PM T [facility] CREATININE 0.79 0.50 - 0.90 mg/dL 01/22/2024 10:45 PM CDT [facility] BUN/CREAT RATIO 14 10 - 20 10:45 PM CDT [facility] eGFR 84(L) >90 mL/min/1.7 3m2 01/22/2024 10:45 PM CDT [facility] Comment:As of 2021, eG FR is calculated by the CKD-EPI creatinine equation without race adjustment. ??eGFR can be influenced by muscle mass, exercise, and diet. ??The reported eGFR is an estimation only and is only applicable if the renal function is stable. ALBUMIN 4.3 4.0 - 4.9 g/dL 01/22/2024 10:45 PM CDT [facility] PROTEIN,TOTAL 6.4 6.0 - 8.0 g/dL 01/22/2024 10:45 PM CDT [facility] BILIRUBIN,TOTAL 0.2 0.0 - 1.2 mg/dL 01/22/2024 10:45 PM CDT [facility] ALK PHOSPHATASE 74 35 - 104 IU/L 01/22/2024 10:45 PM CDT [facility] ALT (SGPT) 15 10 - 35 IU/L 01/22/2024 10:45 PM CDT [facility] AST (SGOT) 21 10 - 35 IU/L 01/22/2024 10:45 PM CDT [facility] Blood BLOOD SPECIMEN / Unknown Venipuncture / Unknown 01/22/2024 1:59 PM CDT 01/22/2024 2:00 PM CDT Moreno Dill MD CHEMISTRY [facility] [address] [place] [address], * LC HIV-1/O/2, 4TH GENERATION (10/16/2022 1:42 PM COMMERCIAL COUNSEL) HIV Scr 4th Gen Non Reactive Non Reactive 10/18/2022 1:09 PM COMMERCIAL COUNSEL [facility] Comment: HIV Negative HIV-1/HIV-2 antibodies and HIV-1 p24 antigen were NOT detected. There is no laboratory evidence of HIV infection. Blood BLOOD SPECIMEN / Unknown Butterfly / Unknown 10/16/2022 1:42 PM COMMERCIAL COUNSEL 10/16/2022 1:49 PM COMMERCIAL COUNSEL Narrative [facility] - 10/18/2022 1:09 PM COMMERCIAL COUNSEL Performed at: ??01 - [facility] [address] [place], [place] ??[id number] Manager Graphic: Scotty Jarrell MD, Phone: ??[phone] Moreno Dill MD LABORATORY [facility] ([facility]) [facility] [place] [address], [place] * XR MAMMO ROMY BILAT DIAG (08/22/2022 2:50 PM COMMERCIAL COUNSEL) Anatomical Region Laterality Modality BREASTS, Breast Left, Breast Right Bilateral Mammography Impressions 08/23/2022 12:21 PM COMMERCIAL COUNSEL Subcutaneous bruise RIGHT breast 11 o'clock 8 cm from the nipple. No evidence of malignancy. RECOMMENDATIONS: Routine screening mammography. BI-RADS Category 2: Benign Results and recommendations discussed with the patient. Dictated by: Ra Correia MD @08/22/2022 3:18:57 PM/joanna PATIENTS: You will also receive a letter with your examination results in an easy to read format. ??If you have questions about your results, please contact your referring provider. Narrative 08/23/2022 12:21 PM COMMERCIAL COUNSEL As a result of the 21st Century Cures Act, medical imaging exams and procedure [...] MAMMO * ANTI HCV (10/06/2020 12:55 PM COMMERCIAL COUNSEL) HEPATITIS C ANTIBODY Non-React francis Non-React francis 10/06/2020 10:54 PM COMMERCIAL COUNSEL [facility] Comment:Antibodies to HCV no t detected; does not exclude the possibility of exposure to HCV. Blood BLOOD SPECIMEN / Unknown Butterfly / Unknown 10/06/2020 12:55 PM COMMERCIAL COUNSEL 10/06/2020 1:00 PM COMMERCIAL COUNSEL Moreno Dill MD SEND OUTS [facility] [address] [place] [address], [place] from Last 3 Months or Most [...] Comments Code Status Discussion: Discussed Care Teams Broom Man Relationship Specialty Start Date End Date Moreno Dill MD [address] [place] [address] PCP - General Family Practice 04/20/19
--- OUTSIDE RECORDS SUMMARY | 2024-04-11 08:34 | XMS_ITS | Data Portability ---
Author Organization [facility], [facility] Address [address], [place] [address] Care Team Providers Care Interior Decorator Painting Name Role Phone [facility]UPUR [facility] PAIN MANAGEMENT [...] By Organization Details Last Modified Time 04/17/2019 [id number] Discussion: Dear Colleagues: Thank you very much [...] consultation habbasi Not available 04/17/2019 14:40:47 06/03/2019 [id number] neck pain: care instructions habbasi Not available [...] 9 162.56 cm 92 /min 28 kg/m2 54984.5 6 g 96 % 96 % 138 mm[Hg] 75 mm[Hg] Jeniffer Reyes [place] - [facility] 9 13:47:10 Date Recorded Body height Heart rate Body mass index (BMI) Body weight Oxygen saturation Oxygen saturation in Arterial blood by Pulse oximetry Systolic blood pressure Diastolic blood pressure Provider Name and Address Organization Details Last Updated DateTime 9 162.56 cm 81 /min 28.7 kg/m2 47888.9 3 g 95 % 95 % 116 mm[Hg] 72 mm[Hg] Daniel Raymundo ID - [facility] 9 15:31:43 Social History None recorded. Functional Status None recorded. Mental Status None recorded. Family History Nothing Reported. Medical History No medical history recorded. Gynecological HistoryNo gynecological history recorded. Obstetrics History GPAL:G 0 P 0 0 0 0 Past Encounters Encounter ID Performer Location Encounter Start Date Encounter Closed Date Diagnosis/Indication Diagnosis SNOMED-CT Code [id number] Kristen Kwong MD [facility] [address] [address] 04/17/2019 13:32:59 04/20/2019 09:51:50 [id number] Kristen Kwong MD [facility] [address] [address] 06/03/2019 15:18:05 06/09/2019 13:11:32 Neck pain [id number] Health Concerns Section Related Observation LastModified by Organization Detai ls LastModified Time None Recorded Concern Status LastModified by Organization Details LastModified Time None Recorded Advance Directives Directive None Recorded Payers Encounter Date Sequence Insurance Name Policy Number Policy Cotton Covered Member ID Cotton Member ID Guarantor Name 04/17/2019 2 [facility] [place] Meg Ehrlicher [id number] Meg Ehrlicher 04/17/2019 1 [employer] (SECONDARY TO MEDICARE) Meg Ehrlicher [id number] Meg Ehrlicher 06/03/2019 2 [facility] [place] Meg Ehrlicher [id number] Meg Ehrlicher 06/03/2019 1 [employer] - FOR LIFE (SECONDARY TO MEDICARE) Meg Ehrlicher [id number] Meg Ehrlicher Notes Date Note Type Note Provider Name and Address Organization Details Recorded Time 04/17/2019 text/html HPI Notes: Neck Pain Reported by patient. Location: bilateral Quality: gnawing Severity: pain level 8/10 Neurological Complaints: numbness of the arms; pain in the arms; weakness of the arms Meg MONAHAN 59yo F 1960 #[id number] Chief Complaint: Status post previous ACDF and [...] Kwong MD [address], [place], [address], [employer] 04/17/2019 14:40:54 06/03/2019 text/html HPI Notes: Neck Pain Reported by patient. Location: bilateral Quality: gnawing Severity: pain level 8/10 Neurological Complaints: numbness of the arms; pain in the arms; weakness of the arms Other Associated Symptoms: no swelling; no redness; no warmth; no ecchymosis; no grinding; no fever; no chills; no weight loss Meg MONAHAN 59yo F 1960 #[id number] History Patient is here with the result of the cervical myelogram. Kristen Kwong MD [address], [place], [address], [employer] 06/03/2019 16:17:01 OBGyn Episode No OBEpisode recorded.
--- OUTSIDE RECORDS SUMMARY | 2024-04-11 08:34 | XMS_ITS | Continuity of Care Document ---
Author Name [facility] Organization [facility] Care Team Providers Care Patient Safety Manager Name Role Phone [facility] Unavailable Unavailable Medications Combined list of outpatient medications from Department of Defense and Veterans Affairs facilities.Medications provided include 1) outpatient medications from the last 15 months, and 2) patient-reported medications. Medication Details Route Status Patient Instructions Prescription Expires Prescription Number Last Dispense Date Ordering Provider Order Date Order Qty Source Alprazolam ([employer]) 100 TABLET in 1 BOTTLE Active [id number] 11/27/19 2 4 2023 30 Pharmac y Data Transac tion Service Facilit y ALPRAZOLAM ER (ALPRAZOLAM ), 0.5 MG, TAB ER 24H, ORAL, [employer], 60 ea. BOTTLE Active [id number] 4 2023 30 Pharmac y Data Transac tion Service Facilit y ALPRAZOLAM ER (ALPRAZOLAM ), 0.5 MG, TAB ER 24H, ORAL, [employer]ARM, 60 ea. BOTTLE Cancele d [id number] 4 [id number] : 2023 0 Pharmac y Data Transac tion Service Facilit y ALPRAZOLAM ER (ALPRAZOLAM ), 0.5 MG, TAB ER 24H, ORAL, [employer], 60 ea. BOTTLE Cancele d [id number] : 2023 0 Pharmac y Data Transac tion Service Facilit y ALPRAZOLAM ER (ALPRAZOLAM ), 0.5 MG, TAB ER 24H, ORAL, A[employer]ARM, 60 ea. BOTTLE Active [id number] 4 2023 60 Pharmac y Data Transac tion Service Facilit y ALPRAZOLAM ER (ALPRAZOLAM ), 0.5 MG, TAB ER 24H, ORAL, AUROB[employer]O PHARM, 60 ea. BOTTLE Active [id number] 4 2023 60 Pharmac y Data Transac tion Service Facilit y ALPRAZOLAM ER (ALPRAZOLAM ), 0.5 MG, TAB ER 24H, ORAL, AUROBINDO PHARM, 60 ea. BOTTLE Active [id number] 4 2023 60 Pharmac y Data Transac tion Service Facilit y ALPRAZOLAM ER (ALPRAZOLAM ), 0.5 MG, TAB ER 24H, ORAL, AUROB[employer]O PHARM, 60 ea. BOTTLE Active [id number] 4 2023 60 Pharmac y Data Transac tion Service Facilit y AZITHROMYCI N (azithromyc in), 250 MG, TABLET, ORAL, SANDOZ, 30 ea. BOTTLE Active [id number] 4 2023 6 Pharmac y Data Transac tion Service Facilit y BUPRENORPHI NE HCL (BUPRENORPH INE HCL), 2 MG, TAB SUBL, SUBLINGUAL, [facility]JNI [facility]S., 30 ea. BOTTLE Cancele d [id number] : 2023 0 Pharmac y Data Transac tion Service Facilit y BUPRENORPHI NE HCL (BUPRENORPH INE HCL), 2 MG, TAB SUBL, SUBLINGUAL, [facility]NI [facility]S., 30 ea. BOTTLE Active [id number] 4 2023 150 Pharmac y Data Transac tion Service Facilit y BUPRENORPHI NE HCL (BUPRENORPH INE HCL), 2 MG, TAB SUBL, SUBLINGUAL, [facility]S., 30 ea. BOTTLE Active [id number] 4 2023 30 Pharmac y Data Transac tion Service Facilit y BUPRENORPHI NE HCL (BUPRENORPH INE HCL), 2 MG, TAB SUBL, SUBLINGUAL, [facility]JNI [facility]S., 30 ea. BOTTLE Cancele d [id number] : 2023 0 Pharmac y Data Transac tion Service Facilit y BUPRENORPHI NE HCL (BUPRENORPH INE HCL), 2 MG, TAB SUBL, SUBLINGUAL, [facility]S., 30 ea. BOTTLE Cancele d [id number] : 2023 0 Pharmac y Data Transac tion Service Facilit y BUPRENORPHI NE HCL (BUPRENORPH INE HCL), 2 MG, TAB SUBL, SUBLINGUAL, [facility]S., 30 ea. BOTTLE Active [id number] 4 2023 180 Pharmac y Data Transac tion Service Facilit y BUPRENORPHI NE HCL (BUPRENORPH INE HCL), 2 MG, TAB SUBL, SUBLINGUAL, [facility]S., 30 ea. BOTTLE Cancele d [id number] : 2023 0 Pharmac y Data Transac tion Service Facilit y BUPRENORPHI NE HCL (BUPRENORPH INE HCL), 2 MG, TAB SUBL, SUBLINGUAL, [facility]S., 30 ea. BOTTLE Cancele d [id number] : 2023 0 Pharmac y Data Transac tion Service Facilit y BUPRENORPHI NE HCL (BUPRENORPH INE HCL), 2 MG, TAB SUBL, SUBLINGUAL, [facility]S., 30 ea. BOTTLE Cancele d [id number] 4 [id number] : 2023 0 Pharmac y Data Transac tion Service Facilit y BUPRENORPHI NE HCL (BUPRENORPH INE HCL), 2 MG, TAB SUBL, SUBLINGUAL, [facility]., 30 ea. BOTTLE Active [id number] 4 2023 157 Pharmac y Data Transac tion Service Facilit y BUPRENORPHI NE HCL (BUPRENORPH INE HCL), 2 MG, TAB SUBL, SUBLINGUAL, [facility]S., 30 ea. BOTTLE Cancele d [id number] : 2023 0 Pharmac y Data Transac tion Service Facilit y BUPRENORPHI NE HCL (BUPRENORPH INE HCL), 2 MG, TAB SUBL, SUBLINGUAL, [facility]S., 30 ea. BOTTLE Active [id number] 4 2023 72 Pharmac y Data Transac tion Service Facilit y CEPHALEXIN (CEPHALEXIN MONOHYDRATE ), 500 MG, CAPSULE, ORAL, [facility], 100 ea. BOTTLE Active [id number] 2023 28 Pharmac y Data Transac tion Service Facilit y CLONAZEPAM (clonazepam ), 0.5 MG, TABLET, ORAL, A[employer]OB[employer]O [employer]ARM, 100 ea. BOTTLE Cancele d [id number] : 2023 0 Pharmac y Data Transac tion Service Facilit y CLOPIDOGREL (CLOPIDOGRE L BISULFATE), 75 MG, TABLET, ORAL, 'S LAB, 90 ea. BOTTLE Active [id number] 2023 90 Pharmac y Data Transac tion Service Facilit y DESVENLAFAX INE SUCCINATE ER (desvenlafa xine succinate), 50 MG, TAB ER 24H, ORAL, [employer]ARM, 30 ea. BOTTLE Active [id number] 2023 30 Pharmac y Data Transac tion Service Facilit y EZETIMIBE (ezetimibe) , 10 MG, TABLET, ORAL, [facility], 30 ea. BOTTLE Active [id number] 4 2023 90 Pharmac y Data Transac tion Service Facilit y EZETIMIBE (ezetimibe) , 10 MG, TABLET, ORAL, [facility], 90 ea. BOTTLE Active [id number] 4 2023 90 Pharmac y Data Transac tion Service Facilit y IPRATROPIUM -ALBUTEROL (IPRATROPIU M/ALBUTEROL SULFATE), 0.5-3MG/3, AMPUL-NEB, INHALATION, [employer] 3 ml VIAL Cancele d [id number] : 2023 0 Pharmac y Data Transac tion Service Facilit y IPRATROPIUM -ALBUTEROL (IPRATROPIU M/ALBUTEROL SULFATE), 0.5-3MG/3, AMPUL-NEB, INHALATION, [employer] 3 ml VIAL Active [id number] 4 2023 180 Pharmac y Data Transac tion Service Facilit y IPRATROPIUM -ALBUTEROL (IPRATROPIU M/ALBUTEROL SULFATE), 0.5-3MG/3, AMPUL-NEB, INHALATION, [facility] [employer] 3 ml VIAL Cancele d [id number] 4 [id number] : 2023 0 Pharmac y Data Transac tion Service Facilit y IPRATROPIUM -ALBUTEROL (IPRATROPIU M/ALBUTEROL SULFATE), 0.5-3MG/3, AMPUL-NEB, INHALATION, [employer] 3 ml VIAL Active [id number] 2023 180 Pharmac y Data Transac tion Service Facilit y IPRATROPIUM -ALBUTEROL (IPRATROPIU M/ALBUTEROL SULFATE), 0.5-3MG/3, AMPUL-NEB, INHALATION, [facility] [employer] [employer] 3 ml VIAL Active [id number] 4 2023 90 Pharmac y Data Transac tion Service Facilit y ISOSORBIDE MONONITRATE ER (isosorbide mononitrate ), 60 MG, TAB ER 24H, ORAL, [employer], 100 ea. BOTTLE Active [id number] 4 2023 180 Pharmac y Data Transac tion Service Facilit y ISOSORBIDE MONONITRATE ER (isosorbide mononitrate ), 60 MG, TAB ER 24H, ORAL, [employer] PHARM, 100 ea. BOTTLE Active [id number] 4 2023 180 Pharmac y Data Transac tion Service Facilit y JARDIANCE (EMPAGLIFLO ZIN), 25 MG, TABLET, ORAL, BOEHRINGER ING., 30 ea. BOTTLE Cancele d [id number] 4 [id number] : 2023 0 Pharmac y Data Transac tion Service Facilit y JARDIANCE (EMPAGLIFLO ZIN), 25 MG, TABLET, ORAL, BOEHRINGER ING., 30 ea. BOTTLE Cancele d [id number] : 2023 0 Pharmac y Data Transac tion Service Facilit y JARDIANCE (EMPAGLIFLO ZIN), 25 MG, TABLET, ORAL, BOEHRINGER ING., 30 ea. BOTTLE Cancele d [id number] : 2023 0 Pharmac y Data Transac tion Service Facilit y JARDIANCE (EMPAGLIFLO ZIN), 25 MG, TABLET, ORAL, BOEHRINGER ING., 30 ea. BOTTLE Cancele d [id number] 4 [id number] : 2023 0 Pharmac y Data Transac tion Service Facilit y JARDIANCE (EMPAGLIFLO ZIN), 25 MG, TABLET, ORAL, BOEHRINGER ING., 30 ea. BOTTLE Active [id number] 2022 30 Pharmac y Data Transac tion Service Facilit y JARDIANCE (EMPAGLIFLO ZIN), 25 MG, TABLET, ORAL, BOEHRINGER ING., 30 ea. BOTTLE Active [id number] 2023 30 Pharmac y Data Transac tion Service Facilit y JARDIANCE (EMPAGLIFLO ZIN), 25 MG, TABLET, ORAL, BOEHRINGER ING., 30 ea. BOTTLE Active [id number] 2023 30 Pharmac y Data Transac tion Service Facilit y JARDIANCE (EMPAGLIFLO ZIN), 25 MG, TABLET, ORAL, BOEHRINGER ING., 30 ea. BOTTLE Active [id number] 2023 30 Pharmac y Data Transac tion Service Facilit y LEVOFLOXACI N (LEVOFLOXAC IN), 750 MG, TABLET, ORAL, 'S LAB, 30 ea. BOTTLE Active [id number] 2023 5 Pharmac y Data Transac tion Service Facilit y LEVOTHYROXI NE SODIUM (levothyrox ine sodium), 50 MCG, TABLET, ORAL, LUPIN PHARMACEU, 100 ea. BOTTLE Active [id number] 4 2023 90 Pharmac y Data Transac tion Service Facilit y LEVOTHYROXI NE SODIUM (levothyrox ine sodium), 50 MCG, TABLET, ORAL, LUPIN PHARMACEU, 100 ea. BOTTLE Active [id number] 4 2023 30 Pharmac y Data Transac tion Service Facilit y LEVOTHYROXI NE SODIUM (levothyrox ine sodium), 50 MCG, TABLET, ORAL, LUPIN PHARMACEU, 100 ea. BOTTLE Active [id number] 2023 90 Pharmac y Data Transac tion Service Facilit y METOPROLOL SUCCINATE (metoprolol succinate), 50 MG, TAB ER 24H, ORAL, [employer], 100 ea. BOTTLE Active [id number] 2023 90 Pharmac y Data Transac tion Service Facilit y METOPROLOL SUCCINATE (metoprolol succinate), 50 MG, TAB ER 24H, ORAL, [employer], 100 ea. BOTTLE Active [id number] 4 2023 90 Pharmac y Data Transac tion Service Facilit y MIRTAZAPINE (MIRTAZAPIN E), 30 MG, TABLET, ORAL, A[employer]OB[employer] PHARM, 30 ea. BOTTLE Active [id number] 2023 45 Pharmac y Data Transac tion Service Facilit y MIRTAZAPINE (MIRTAZAPIN E), 30 MG, TABLET, ORAL, AUROB[employer]O PHARM, 30 ea. BOTTLE Cancele d [id number] : 2023 0 Pharmac y Data Transac tion Service Facilit y MIRTAZAPINE (MIRTAZAPIN E), 30 MG, TABLET, ORAL, AUROBINDO PHARM, 30 ea. BOTTLE Cancele d [id number] : 2023 0 Pharmac y Data Transac tion Service Facilit y MIRTAZAPINE (MIRTAZAPIN E), 30 MG, TABLET, ORAL, AUROBINDO PHARM, 30 ea. BOTTLE Active [id number] 4 2023 30 Pharmac y Data Transac tion Service Facilit y MIRTAZAPINE (MIRTAZAPIN E), 45 MG, TABLET, ORAL, AUROBINDO PHARM, 30 ea. BOTTLE Active [id number] 2023 30 Pharmac y Data Transac tion Service Facilit y MIRTAZAPINE (MIRTAZAPIN E), 45 MG, TABLET, ORAL, AUROBINDO PHARM, 30 ea. BOTTLE Active [id number] 2023 30 Pharmac y Data Transac tion Service Facilit y MIRTAZAPINE (MIRTAZAPIN E), 45 MG, TABLET, ORAL, AUROBINDO PHARM, 30 ea. BOTTLE Active [id number] 2023 30 Pharmac y Data Transac tion Service Facilit y MIRTAZAPINE (MIRTAZAPIN E), 45 MG, TABLET, ORAL, AUROBINDO PHARM, 30 ea. BOTTLE Active [id number] 2023 30 Pharmac y Data Transac tion Service Facilit y OLANZAPINE (OLANZAPINE ), 2.5 MG, TABLET, ORAL, 'S LAB, 30 ea. BOTTLE Active [id number] 4 2023 90 Pharmac y Data Transac tion Service Facilit y OLANZAPINE (OLANZAPINE ), 2.5 MG, TABLET, ORAL, 'S LAB, 30 ea. BOTTLE Active [id number] 4 2023 90 Pharmac y Data Transac tion Service Facilit y OLANZAPINE (OLANZAPINE ), 2.5 MG, TABLET, ORAL, 'S LAB, 30 ea. BOTTLE Cancele d [id number] : 2023 0 Pharmac y Data Transac tion Service Facilit y OLANZAPINE (OLANZAPINE ), 2.5 MG, TABLET, ORAL, 'S LAB, 30 ea. BOTTLE Active [id number] 4 2023 60 Pharmac y Data Transac tion Service Facilit y OLANZAPINE (OLANZAPINE ), 2.5 MG, TABLET, ORAL, 'S LAB, 30 ea. BOTTLE Active [id number] 2023 60 Pharmac y Data Transac tion Service Facilit y OMEPRAZOLE (omeprazole ), 20 MG, CAPSULE SERGO AHN, [employer], 100 ea. BOTTLE Active [id number] 4 2023 90 Pharmac y Data Transac tion Service Facilit y OMEPRAZOLE (omeprazole ), 20 MG, CAPSULE SERGO AHN, [employer], 100 ea. BOTTLE Active [id number] 4 2023 90 Pharmac y Data Transac tion Service Facilit y OMEPRAZOLE (omeprazole ), 20 MG, CAPSULE SERGO AHN, [employer], 100 ea. BOTTLE Active [id number] 2023 90 Pharmac y Data Transac tion Service Facilit y ONDANSETRON HCL (ONDANSETRO N HCL), 4MG, TABLET, ORAL, A[facility]OB[employer]O PHARM, 30 ea. BOTTLE Active [id number] 2023 20 Pharmac y Data Transac tion Service Facilit y OXYCODONE-A CETAMINOPHE N (oxycodone HCl/acetami nophen), 5 MG-325MG, TABLET, ORAL, [employer] INC, 100 ea. BOTTLE Active [id number] 2023 20 Pharmac y Data Transac tion Service Facilit y PAXLOVID (EUA) (nirmatrelv ir/ritonavi r), 300-100 MG, TAB DS PK, ORAL, [employer] [facility]S., 30 ea. BLIST PACK Active [id number] 4 2023 30 Pharmac y Data Transac tion Service Facilit y POTASSIUM CHLORIDE (potassium chloride), 20 MEQ, TAB ER PRT, ORAL, UPSHER-KULWANT H LA, 100 ea. BOTTLE Active [id number] 4 2023 180 Pharmac y Data Transac tion Service Facilit y POTASSIUM CHLORIDE (potassium chloride), 20 MEQ, TAB ER PRT, ORAL, UPSHER-KULWANT H LA, 100 ea. BOTTLE Cancele d [id number] : 2022 0 Pharmac y Data Transac tion Service Facilit y PRAZOSIN HCL (prazosin HCl), 1 MG, CAPSULE, ORAL, BIOCON PHARMA I, 100 ea. BOTTLE Active [id number] 4 2023 30 Pharmac y Data Transac tion Service Facilit y PRAZOSIN HCL (prazosin HCl), 1 MG, CAPSULE, ORAL, BIOCON PHARMA I, 100 ea. BOTTLE Active [id number] 2023 30 Pharmac y Data Transac tion Service Facilit y PRAZOSIN HCL (prazosin HCl), 1 MG, CAPSULE, ORAL, BIOCON PHARMA I, 100 ea. BOTTLE Active [id number] 4 2023 30 Pharmac y Data Transac tion Service Facilit y PRAZOSIN HCL (prazosin HCl), 2 MG, CAPSULE, ORAL, BIOCON PHARMA I, 100 ea. BOTTLE Active [id number] 2023 30 Pharmac y Data Transac tion Service Facilit y PRAZOSIN HCL (prazosin HCl), 2 MG, CAPSULE, ORAL, BIOCON PHARMA I, 100 ea. BOTTLE Active [id number] 2023 30 Pharmac y Data Transac tion Service Facilit y PRAZOSIN HCL (prazosin HCl), 2 MG, CAPSULE, ORAL, BIOCON PHARMA I, 100 ea. BOTTLE Canakhile d [id number] : 2023 0 Pharmac y Data Transac tion Service Facilit y PRAZOSIN HCL (prazosin HCl), 2 MG, CAPSULE, ORAL, BIOCON PHARMA I, 100 ea. BOTTLE Active [id number] 2023 90 Pharmac y Data Transac tion Service Facilit y PRAZOSIN HCL (prazosin HCl), 2 MG, CAPSULE, ORAL, BIOCON PHARMA I, 100 ea. BOTTLE Active [id number] 2023 90 Pharmac y Data Transac tion Service Facilit y PRAZOSIN HCL (prazosin HCl), 5 MG, CAPSULE, ORAL, BIOCON PHARMA I, 100 ea. BOTTLE Active [id number] 2023 30 Pharmac y Data Transac tion Service Facilit y PRAZOSIN HCL (prazosin HCl), 5 MG, CAPSULE, ORAL, BIOCON PHARMA I, 100 ea. BOTTLE Active [id number] 2023 30 Pharmac y Data Transac tion Service Facilit y PRAZOSIN HCL (prazosin HCl), 5 MG, CAPSULE, ORAL, BIOCON PHARMA I, 100 ea. BOTTLE Active [id number] 2023 30 Pharmac y Data Transac tion Service Facilit y PREDNISONE (PREDNISONE ), 10MG, TABLET, ORAL, CADISTA PHARMAC, 100 ea. BOTTLE Active [id number] 2023 13 Pharmac y Data Transac tion Service Facilit y PREDNISONE (PREDNISONE ), 10MG, TABLET, ORAL, [employer]ISTA PHARMAC, 100 ea. BOTTLE Active [id number] 2023 30 Pharmac y Data Transac tion Service Facilit y PREDNISONE (PREDNISONE ), 20MG, TABLET, ORAL, CADISTA PHARMAC, 100 ea. BOTTLE Active [id number] 2023 10 Pharmac y Data Transac tion Service Facilit y RAMELTEON (ramelteon) , 8 MG, TABLET, ORAL, UPSHER-KULWANT H LA, 30 ea. BOTTLE Active [id number] 2023 60 Pharmac y Data Transac tion Service Facilit y RAMELTEON (ramelteon) , 8 MG, TABLET, ORAL, UPSHER-KULWANT H LA, 30 ea. BOTTLE Cancele d [id number] : 2023 0 Pharmac y Data Transac tion Service Facilit y RAMELTEON (ramelteon) , 8 MG, TABLET, ORAL, UPSHER-KULWANT H LA, 30 ea. BOTTLE Active [id number] 2023 60 Pharmac y Data Transac tion Service Facilit y RAMELTEON (ramelteon) , 8 MG, TABLET, ORAL, UPSHER-KULWANT H LA, 30 ea. BOTTLE Active [id number] 2023 30 Pharmac y Data Transac tion Service Facilit y ROSUVASTATI N CALCIUM (rosuvastat in calcium), 20 MG, TABLET, ORAL, GLENMARK PHARMA, 90 ea. BOTTLE Active [id number] 2023 90 Pharmac y Data Transac tion Service Facilit y ROSUVASTATI N CALCIUM (rosuvastat in calcium), 20 MG, TABLET, ORAL, GLENMARK PHARMA, 90 ea. BOTTLE Active [id number] 2023 90 Pharmac y Data Transac tion Service Facilit y TIZANIDINE HCL (TIZANIDINE HCL), 4MG, TABLET, ORAL, CARACO PHARM, 150 ea. BOTTLE Active [id number] 4 2023 90 Pharmac y Data Transac tion Service Facilit y TIZANIDINE HCL (TIZANIDINE HCL), 4MG, TABLET, ORAL, CARACO PHARM, 150 ea. BOTTLE Active [id number] 2023 90 Pharmac y Data Transac tion Service Facilit y TIZANIDINE HCL (TIZANIDINE HCL), 4MG, TABLET, ORAL, CARACO PHARM, 150 ea. BOTTLE Active [id number] 2023 90 Pharmac y Data Transac tion Service Facilit y TIZANIDINE HCL (TIZANIDINE HCL), 4MG, TABLET, ORAL, CARACO PHARM, 150 ea. BOTTLE Active [id number] 3 2022 90 Pharmac y Data Transac tion Service Facilit y TIZANIDINE HCL (TIZANIDINE HCL), 4MG, TABLET, ORAL, CARACO PHARM, 150 ea. BOTTLE Active [id number] 2023 90 Pharmac y Data Transac tion Service Facilit y TORSEMIDE (TORSEMIDE) , 20MG, TABLET, ORAL, CAMBER PHARMACE, 100 ea. BOTTLE Active [id number] 2023 160 Pharmac y Data Transac tion Service Facilit y TRELEGY ELLIPTA (fluticason e furoate/ume clidinium bromide/kylie anterol trifenat), 100-62.5, BLST W/DEV, INHALATION, GLAXOSMITHK LINE, 60 ea. BLIST PACK Active [id number] 3 2022 180 Pharmac y Data Transac tion Service Facilit y TRELEGY ELLIPTA (fluticason e furoate/ume clidinium bromide/kylie anterol trifenat), 100-62.5, BLST W/DEV, INHALATION, GLAXOSMITHK LINE, 60 ea. BLIST PACK Active [id number] 4 2023 180 Pharmac y Data Transac tion Service Facilit y TRELEGY ELLIPTA (fluticason e furoate/ume clidinium bromide/kylie anterol trifenat), 100-62.5, BLST W/DEV, INHALATION, GLAXOSMITHK LINE, 60 ea. BLIST PACK Active [id number] 2023 180 Pharmac y Data Transac tion Service Facilit y VENTOLIN HFA (ALBUTEROL SULFATE), 90MCG, HFA AER AD, INHALATION, GLAXOSMITHK LINE, 18 g CANISTER Active [id number] 4 2023 18 Pharmac y Data Transac tion Service Facilit y VENTOLIN HFA (ALBUTEROL SULFATE), 90MCG, HFA AER AD, INHALATION, GLAXOSMITHK LINE, 18 g CANISTER Active [id number] 4 2023 18 Pharmac y Data Transac tion Service Facilit y VENTOLIN HFA (ALBUTEROL SULFATE), 90MCG, HFA AER AD, INHALATION, GLAXOSMITHK LINE, 18 g CANISTER Active [id number] 4 2023 18 Pharmac y Data Transac tion Service Facilit y VENTOLIN HFA (ALBUTEROL SULFATE), 90MCG, HFA AER AD, INHALATION, GLAXOSMITHK LINE, 18 g CANISTER Active [id number] 4 2023 36 Pharmac y Data Transac tion Service Facilit y Allergies, Adverse Reactions, Alerts Combined list of allergies from Department of Defense and Veterans Affairs facilities. It does not include entries that were removed or entered in error. Substance Category Reaction Severity Reaction type Status Date Reported Comments Source PENICILLIN Propensity to adverse reactions to drug (finding) active 12/26/1995 [facility] PERCOCET Propensity to adverse reactions to drug (finding) active 05/01/1996 [facility] SULFA DRUGS Propensity to adverse reactions to drug (finding) active 04/20/1999 [facility] Immunizations Combined list of available immunizations from the Department of Defense and Veterans Affairs facilities. Immunization Series Date Given Administered By Site Reaction Lot Number CVX Code Drug Women'S Activities Adviser Status Comments Source INFLUENZA (HISTORICAL) 1997 YVONNE KHAN 87 complet ed [facility] Social History Combined list of available smoking, tobacco, and other social history from Department of Defense and Veterans Affairs facilities. Social History Type Response Date Comment Sourc e This section is an empty social history section. DoD
[2024-04-11 08:45] LABS: HCO3 VBG 39 mmol/L (21-28); Lactate* 1.7 mmol/L (0.5-1.9); PO2 VBG 35.2 mmHG (25-47); pH VBG 7.401 (7.32-7.43)
[2024-04-11 08:47] LABS: Basophils Percent Auto 0.3 % (0.0-3.0); Hematocrit 41.6 % (33.0-51.0); Hemoglobin* 13.7 gm/dL (12.0-16.0); Immature Granulocytes Pct Auto 0.4 %; Mean Corpuscular HGB Conc 33 gm/dL (32-36); Mean Corpuscular Hemoglobin 31 pg (26-34); Mean Corpuscular Volume 93 fL (80-100); Monocytes Percent Auto 8.2 % (0.0-11.0); Neutrophils Percent Auto 72.1 % (42.0-72.0); Platelet Count* 255 K/uL (140-440); RDW Coefficient of Variation % 12.7 % (11.5-15.5); Red Blood Count 4.48 m/uL (4.00-5.20); White Blood Count* 13.37 K/uL (4.50-11.00)
[2024-04-11 08:49] LABS: Slide Review Reflex No
--- NOTE | 2024-04-11 08:49 | RESP.RT ---
Patient on Room Air SaO2 93%, compliant of SOB patient was placed on NC 2 Lpm SaO2 95%, RR 18-20/minutes, breathing regular/easy, BBS with both upper lobes with fine crackles and expiratory rhonchi clearing with force full moist, coarse cough, nonproductive. BBS both bases with coarse crackles and expiratory rhonchi clearing with forceful moist coarse cough, nonproductive. Patient has Home CPAP and is noncompliant with it. Has had number of years, compliant of to high of pressures, and dry mouth.
[2024-04-11 08:50] LABS: PCO2 VBG 62 mmHG (40-50)
[2024-04-11 09:04] LABS: Albumin* 4.2 g/dL (3.3-5.0); Chloride* 95 mmol/L (96-114); Potassium* 3.9 mmol/L (3.6-5.1); Sodium* 135 mmol/L (135-149)
[2024-04-11 09:06] LABS: Creatinine* 0.6 mg/dL (0.5-1.5); Est. Creatinine Clearance* 48.43; Estimated Glomerular Filt Rate 100 ml/min
[2024-04-11 09:07] LABS: Alanine Aminotransferase* 21 U/L (4-35); Alkaline Phosphatase* 57 U/L (40-150); Anion Gap 3 mEq/L (7-15); Aspartate Amino Transferase* 24 U/L (12-35); Bilirubin Direct* 0.3 mg/dL (0.0-0.5); Bilirubin Total* 0.3 mg/dL (0.1-1.5); Blood Urea Nitrogen* 17 mg/dL (7-30); Calcium* 8.6 mg/dL (8.4-10.6); Carbon Dioxide* 37 mmol/L (20-32); Glucose* 154 mg/dL (60-115); Magnesium* 2.2 mg/dL (1.5-2.6); Total Protein* 6.6 g/dL (6.0-8.3)
[2024-04-11 09:09] LABS: PCR FLU A Negative PCR FLU A (Negative); PCR FLU B Negative PCR FLU B (Negative); PCR RSV Negative PCR RSV (Negative); SARS PCR* Negative SARS-CoV-2 (Negative)
[2024-04-11 09:20] LABS: NT Pro B Type NatriureticPept* 493 pg/mL; Troponin I* < 0.01 ng/mL (0.01-0.04)
== END 2024-04-11 10:42 | disposition home or self-care (01) ==
PROVIDERS: Emergency Provider Family Medicine; PCP Family Medicine
DX: F41.9 Anxiety disorder, unspecified (principal); J44.9 Chronic obstructive pulmonary disease, unspecified
CPT/HCPCS: 36415; 71046; 80048; 80076; 82803; 83605; 83735; 83880; 84484; 85025; 87631; 93005; 94761; 99284; 99285; A9270

== ENCOUNTER 2024-08-01 13:38 | Emergency (ER) | payer OTHER, SELFPAY ==
[2024-08-01 13:45] VITALS: BP 139/87; PULSE 89; RESP 24; TEMP 36.3; O2SAT 95; BMI 28.3
--- NOTE | 2024-08-01 14:01 | CRLHL7_ITS ---
For Patients: As a result of the Cures Act, medical imaging exams and procedure reports are released immediately into your electronic medical record. You may view this report before your referring provider. If you have questions, please contact your health care provider. INDICATION: Left rib pain from coughing TECHNIQUE: Chest and left ribs 3 views. COMPARISON: Chest radiographs dated 04/11/2024 FINDINGS: Cardiovascular and mediastinum: Heart size and vasculature are unchanged in caliber and appearance. Redemonstrated postsurgical changes with sternotomy wires. Lungs and pleural spaces: Lungs are clear. No sign of infiltrate or mass. No sign of pleural effusion. No pneumothorax. Bones and soft tissues: Detailed oblique images of the left ribs demonstrate no acute fractures or bone lesions. Redemonstrated chronic left 7th rib fracture deformity. Cervical fixation hardware in place. IMPRESSION: No evident acute abnormalities in the chest or left ribs. Dictated by Jr Cole MD @ 08/01/2024 3:06:24 PM (Electronically Signed)
--- NOTE | 2024-08-01 14:05 | ED.GENADULT ---
HPI - General Adult General Chief complaint: Shortness of Breath/Dyspnea Stated complaint: Short of breath, fluid in lungs, rib pain Time Seen by Provider: 08/01/24 13:51 History of Present Illness HPI narrative: This 64-year-old female comes in reporting cough with left rib pain related to the cough. She states that she began coughing about 5 days ago. She is coughing up some clear fluid at times. She does not report any fevers. She does have chronic pain and states that she has been taking [place] without any relief. She arrives here with normal vital signs. She does not report any fevers. She does have a history of congestive heart failure but does not show any signs of fluid overload on exam initially. She states that she did take a diuretic given the possibility of heart failure contributing to her symptoms. Related Data Home Medications ?Medication ?Instructions ?Recorded ?Confirmed aspirin 81 mg chewable tablet 81 mg PO DAILY 03/02/22 03/25/24 clopidogrel 75 mg tablet (Plavix) 75 mg PO DAILY 03/02/22 03/25/24 ezetimibe 10 mg tablet (Zetia) 10 mg PO DAILY 03/02/22 03/25/24 ipratropium 0.5 mg-albuterol 3 mg 3 ml inhalation Q6H PRN 03/02/22 03/25/24 (2.5 mg base)/3 mL nebulization soln isosorbide mononitrate 60 mg 120 mg PO DAILY 03/02/22 03/25/24 tablet,extended release 24 hr levothyroxine 50 mcg tablet 50 mcg PO DAILY 03/02/22 03/25/24 (Synthroid) magnesium oxide 400 mg PO DAILY 03/02/22 03/25/24 meclizine 25 mg tablet 25 mg PO TID PRN 03/02/22 03/25/24 metoprolol succinate 50 mg 50 mg PO DAILY 03/02/22 03/25/24 tablet,extended release 24 hr naloxone 4 mg/actuation nasal spray 4 mg intranasal Q2-3M PRN 03/02/22 03/25/24 nitroglycerin 0.4 mg sublingual 0.4 mg sublingual Q5M 03/02/22 03/25/24 tablet (Nitrostat) ondansetron HCl 4 mg tablet 4 mg PO Q8H PRN 03/02/22 03/25/24 rosuvastatin 20 mg tablet (Crestor) 20 mg PO HS 03/02/22 03/25/24 sennosides 8.6 mg-docusate sodium 2 tab PO BID 03/02/22 03/25/24 50 mg tablet sodium chloride 0.65 % nasal spray 2 spray intranasal Q2H PRN 03/02/22 03/25/24 aerosol (Nasal [place] (sodium chloride)) albuterol sulfate 90 mcg/actuation 2 puff inhalation Q4H PRN 03/30/22 03/25/24 aerosol inhaler empagliflozin 25 mg tablet 25 mg PO DAILY 12/12/22 03/25/24 (Jardiance) acetaminophen 500 mg tablet 1,000 mg PO TID PRN 10/22/23 03/25/24 alprazolam 0.5 mg tablet,extended 0.5 mg PO Q12H 10/22/23 03/25/24 release 24 hr baclofen 10 mg tablet 10 mg PO BID 10/22/23 03/25/24 cetirizine 10 mg tablet 10 mg PO DAILY 10/22/23 03/25/24 fluticasone fur. 100 mcg-umeclid 1 ea inhalation DAILY 10/22/23 03/25/24 62.5 mcg-vilant 25 mcg inhalat.powder (Trelegy Ellipta) methocarbamol 750 mg tablet 750 mg PO HS 10/22/23 03/25/24 mirtazapine 45 mg tablet 45 mg PO HS 10/22/23 03/25/24 omega 2-xag-lov-fish oil 1,000 mg 1 cap PO HS 10/22/23 03/25/24 (120 mg-180 mg) capsule (Fish Oil) omeprazole 20 mg capsule,delayed 20 mg PO DAILY 10/22/23 03/25/24 release tiotropium bromide 2.5 2 puff inhalation DAILY 10/22/23 03/25/24 mcg/actuation mist for inhalation (Spiriva Respimat) tizanidine 4 mg tablet 4 mg PO Q6H PRN 10/22/23 03/25/24 topiramate 25 mg tablet (Topamax) 25 mg PO DAILY 10/22/23 03/25/24 torsemide 20 mg tablet 20 mg PO DAILY 10/22/23 03/25/24 venlafaxine 75 mg capsule,extended 225 mg PO DAILY 10/22/23 03/25/24 release 24 hr Previous Rx's ?Medication ?Instructions ?Recorded potassium chloride 20 mEq 40 meq (2 x 20 mEq) PO DAILY #60 04/02/22 tablet,extended release(part/cryst) tabs buprenorphine HCl 2 mg sublingual 2 mg sublingual BID #60 tabs 10/28/23 tablet prednisone 10 mg tablet 10 mg PO DIRECTED 13 days #13 10/28/23 tabs acetaminophen 300 mg-codeine 30 mg 1 tab PO Q6H PRN pain #15 tabs 08/01/24 tablet azithromycin 250 mg tablet 250 mg PO DAILY #6 tabs 08/01/24 (Zithromax Z-Armani) methylprednisolone 4 mg tablets in See Rx Instructions PO .COMPLEX 08/01/24 a dose pack (Medrol (Armani)) #21 ea Allergies Allergy/AdvReac Type Severity Reaction Status Date / Time sumatriptan Allergy Severe Anaphylaxis Verified 03/25/24 16:43 buspirone Allergy Intermediate Rash Verified 03/25/24 16:43 fentanyl Allergy Intermediate Verified 03/25/24 16:43 gabapentin Allergy Intermediate gi upset Verified 03/25/24 16:43 niacin Allergy Intermediate Verified 03/25/24 16:43 trazodone Allergy Intermediate Verified 03/25/24 16:43 atorvastatin Allergy Mild myalgia Verified 03/25/24 16:43 codeine Allergy Mild itching Verified 03/25/24 16:43 rizatriptan Allergy Mild Flushing Verified 03/25/24 16:43 Review of Systems Status of ROS: Reports: 10 or more systems reviewed and unremarkable except as noted in History and below Narrative: Constitutional: No fevers, no weight gain or loss. Eyes: No discharge. No vision changes. HENT: No congestion, no sore throat, no ear pain. Cardiovascular: No chest pain, no palpitations. Respiratory: No shortness of breath. Frequent coughing with associated left rib pain. Gastrointestinal: No abdominal pain, no vomiting, no diarrhea. Genitourinary: No dysuria, no hematuria. Musculoskeletal: Normal range of motion. Skin: No rashes, no pruritis. Neurological: No dizziness, weakness, sensory change, speech change. Endo/Heme/Allergies: No bruising or bleeding. No polydipsia. Pysch: no suicidality, no anxiety, no insomnia. All other systems reviewed and are negative. [facility] Medical History Noncompliance with medication regimen ?Z91.148 - Patient's other noncompliance with medication regimen for other reason (ICD-10) Acute on chronic respiratory failure with hypoxia and hypercapnia ?J96.21 - Acute and chronic respiratory failure with hypoxia (ICD-10) ?J96.22 - Acute and chronic respiratory failure with hypercapnia (ICD-10) Chronic narcotic use ?F11.90 - Opioid use, unspecified, uncomplicated (ICD-10) Hypokalemia ?E87.6 - Hypokalemia (ICD-10) Encephalopathy acute ?G93.40 - Encephalopathy, unspecified (ICD-10) Hyperkalemia ?E87.5 - Hyperkalemia (ICD-10) Hyponatremia ?E87.1 - Hypo-osmolality and hyponatremia (ICD-10) Coronary artery disease ?I25.10 - Atherosclerotic heart disease of [place] coronary artery without angina pectoris (ICD-10) Congestive heart failure ?I50.9 - Heart failure, unspecified (ICD-10) Diabetes mellitus type 2 in obese ?E11.69 - Type 2 diabetes mellitus with other specified complication (ICD-10) ?E66.9 - Obesity, unspecified (ICD-10) Respiratory failure ?J96.90 - Respiratory failure, unspecified, unspecified whether with hypoxia or hypercapnia (ICD-10) Acute hyponatremia ?E87.1 - Hypo-osmolality and hyponatremia (ICD-10) Congestive heart failure ?I50.9 - Heart failure, unspecified (ICD-10) Hypothyroidism ?E03.9 - Hypothyroidism, unspecified (ICD-10) Type 2 diabetes mellitus with circulatory disorder, without long-term current use of insulin ?E11.59 - Type 2 diabetes mellitus with other circulatory complications (ICD-10) Graves disease ?E05.00 - Thyrotoxicosis with diffuse goiter without thyrotoxic crisis or storm (ICD-10) SOCORRO (obstructive sleep apnea) ?G47.33 - Obstructive sleep apnea (adult) (pediatric) (ICD-10) CAD (coronary artery disease) ?I25.10 - Atherosclerotic heart disease of [place] coronary artery without angina pectoris (ICD-10) Recurrent major depression ?F33.9 - Major depressive disorder, recurrent, unspecified (ICD-10) History of nicotine dependence ?Z87.891 - Personal history of nicotine dependence (ICD-10) Chronic pain syndrome ?G89.4 - Chronic pain syndrome (ICD-10) Arthropathy of spinal facet joint ?M47.819 - Spondylosis without myelopathy or radiculopathy, site unspecified (ICD-10) Allergic rhinitis due to pollen ?J30.1 - Allergic rhinitis due to pollen (ICD-10) Insomnia ?G47.00 - Insomnia, unspecified (ICD-10) Hyperlipidemia ?E78.5 - Hyperlipidemia, unspecified (ICD-10) Lumbar spinal stenosis ?M48.061 - Spinal stenosis, lumbar region without neurogenic claudication (ICD-10) Opioid dependence ?F11.20 - Opioid dependence, uncomplicated (ICD-10) Refractory migraine ?G43.919 - Migraine, unspecified, intractable, without status migrainosus (ICD-10) Secondary polycythemia ?D75.1 - Secondary polycythemia (ICD-10) PTSD (post-traumatic stress disorder) ?F43.10 - Post-traumatic stress disorder, unspecified (ICD-10) Panic disorder ?F41.0 - Panic disorder [episodic paroxysmal anxiety] (ICD-10) Anxiety ?F41.9 - Anxiety disorder, unspecified (ICD-10) GERD (gastroesophageal reflux disease) ?K21.9 - Gastro-esophageal reflux disease without esophagitis (ICD-10) Chest pain ?R07.9 - Chest pain, unspecified (ICD-10) Edema ?R60.9 - Edema, unspecified (ICD-10) Acute on chronic heart failure with preserved ejection fraction ?I50.33 - Acute on chronic diastolic (congestive) heart failure (ICD-10) CO2 retention ?E87.2 - Acidosis (ICD-10) Cluster B personality disorder ?F60.89 - Other specific personality disorders (ICD-10) Leukocytosis ?D72.829 - Elevated white blood cell count, unspecified (ICD-10) Acute and chronic respiratory failure (dpybd-yz-xtqdxyd) ?J96.20 - Acute and chronic respiratory failure, unspecified whether with hypoxia or hypercapnia (ICD-10) COPD (chronic obstructive pulmonary disease) ?J44.9 - Chronic obstructive pulmonary disease, unspecified (ICD-10) Surgical History H/O heart artery stent ?Z95.5 - Presence of coronary angioplasty implant and graft (ICD-10) Failed CABG (coronary artery bypass graft) ?T82.218A - Other mechanical complication of coronary artery bypass graft, initial encounter (ICD-10) Social History Narrative: Patient lives alone in [place]. Former smoker. She does not drink alcohol. Her healthcare power of traffic law attorney is her future [id number], Mica. Requests Full Code status What is your current living situation?: I presently have a place to live Problems where you live: no known problems Problems where you live details: NA In the past 12 months, utilities in danger of being shut off: no In the past 12 mos, have been you worried that your food would run out before you had money to buy more?: never true In the past 12 mos, the food you bought just didn't last and you didn't have money to buy more?: never true Highest level of school completed/degree received: some college, no degree Smoking Status: Former smoker What tobacco products do you use: cigarettes Smoking quit date/years: >15 years ago Do you use any of these nicotine containing products: None Second hand tobacco smoke exposure: Yes How often do you have a drink containing alcohol: never How often do you have six or more drinks on one occasion: Never AUDIT-C Alcohol total score: 0 Non-prescribed substance use: denies use Caffeine: Yes How often does anyone, including family, friends and others, physically hurt you: never How often does anyone, including family, friends and others, insult or talk down to you: never How often does anyone, including family, friends and others, threaten you with harm: never How often does anyone, including family, friends and others, scream or curse at you: never service: No Exam Narrative: Exam Narrative: Constitutional: Well-developed, well-nourished, no acute distress. HEENT: Normocephalic, atraumatic. Neck: Normal range of motion. Nontender. Supple. Heart: Regular. No murmurs. Normal rate. Intact distal pulses. Lungs: Bilateral rhonchi. A left lateral rib pain when palpating and with deep breathing. Abdomen: Normal bowel sounds. Nontender. No rebound tenderness. Genitalia: Deferred. Back: No midline tenderness. Normal range of motion. Extremities: Normal range of motion. No injury. Skin: Intact. No rash. Warm. No erythema or pallor. Neurologic: No altered sensation. No weakness. Alert and oriented. Psychiatric: No suicidality. No anxiety or depression. No insomnia. Nursing notes and vitals signs are reviewed. Const: Vital Signs, click to edit/add: Vital Signs - 24 hr 08/01/24 13:45 Temperature 97.4 F L Pulse Rate [Pulse Oximeter] 89 Respiratory Rate 24 Blood Pressure [[facility]] 139/87 Pulse Oximetry 95 Oxygen Delivery Me thod Room Air Course Vital Signs Vital signs: Initial Vital Signs Temperature 97.4 F L 08/01/24 13:45 Temperature Source Temporal Artery Scan 08/01/24 13:45 Pulse Rate 89 08/01/24 13:45 Respiratory Rate 24 08/01/24 13:45 Blood Pressure 139/87 08/01/24 13:45 Blood Pressure Mean 104 08/01/24 13:45 Pulse Oximetry 95 08/01/24 13:45 Oxygen Delivery Method Room Air 08/01/24 13:45 Vital Signs Temperature 97.4 F L 08/01/24 13:45 Pulse Rate 89 08/01/24 13:45 Respiratory Rate 24 08/01/24 13:45 Blood Pressure 139/87 08/01/24 13:45 Pulse Oximetry 95 08/01/24 13:45 Oxygen Delivery Method Room Air 08/01/24 13:45 Temperature 97.4 F L 08/01/24 13:45 Pulse Rate 89 08/01/24 13:45 Respiratory Rate 24 08/01/24 13:45 Blood Pressure 139/87 08/01/24 13:45 Pulse Oximetry 95 08/01/24 13:45 Oxygen Delivery Method Room Air 08/01/24 13:45 Medications Administered Medications: Discontinued Medications Generic Name Dose Route Start Last Admin Trade Name Freq PRN Reason Stop Dose Admin Hydromorphone HCl 0.5 mg 08/01/24 14:51 08/01/24 14:59 Hydromorphone 0.5 Mg/0.5 Ml Inj IVP 08/01/24 14:52 0.5 mg ONCE ONE Administration Ondansetron HCl 4 mg 08/01/24 14:51 08/01/24 14:59 Ondansetron 2 Mg/Ml Inj IVP 08/01/24 14:52 4 mg ONCE ONE Administration Medical Decision Making MDM Narrative Medical decision making narrative: This patient comes in with persistent coughing and left-sided rib pain. An x-ray is obtained including rib detail which shows no acute findings of either ribs or her lungs. She is concerned that she may have a flare-up of her congestive heart failure. Her B type nitrate peptide returns in normal range and again her chest x-ray is not showing sign of fluid overload nor is her exam of her lower extremities. Lab results returned with the elevated white count at 15,500. Her symptoms may be due to a virus but given her underlying chronic obstructive pulmonary disease and history of congestive heart failure I did prescribe a Z-Armani, Medrol Dosepak, and she also received some tablets of Tylenol 3 for symptomatic relief. Her vital signs are reassuring and she is okay to return home. Lab Data Labs: Lab Results 08/01/24 Range/Units 14:20 WBC 15.55 H (4.50-11.00) K/uL RBC 5.17 (4.00-5.20) m/uL Hgb 16.1 H (12.0-16.0) gm/dL Hct 48.4 (33.0-51.0) % MCV 94 (80-100) fL MCH 31 (26-34) pg MCHC 33 (32-36) gm/dL RDW Coeff of Renetta 12.3 (11.5-15.5) % Plt Count 288 (140-440) K/uL Neut % (Auto) 70.1 (42.0-72.0) % Lymph % (Auto) 21.0 (20-44) % [place] % (Auto) 8.0 (0.0-11.0) % Eos % (Auto) 0.0 (0.0-7.0) % Baso % (Auto) 0.3 (0.0-3.0) % Neut # (Auto) 10.90 H (1.7-7.0) K/uL Lymph # (Auto) 3.30 H (0.90-2.90) K/uL [place] # (Auto) 1.20 H (0.00-0.90) K/UL Eos # (Auto) 0.00 (0.00-0.50) K/uL Baso # (Auto) 0.00 (0.00-0.30) K/uL Abs Immat Gran (auto) 0.10 (0.00-0.30) K/uL Imm/Tot Granulo (auto) 0.6 % Sodium 133 L (135-149) mmol/L Potassium 3.7 (3.6-5.1) mmol/L Chloride 92 L (96-114) mmol/L Carbon Dioxide 34 H (20-32) mmol/L Anion Gap 7 (7-15) mEq/L BUN 26 (7-30) mg/dL Creatinine 0.7 (0.5-1.5) mg/dL Estimated Creat Clear 48.43 Estimated GFR 96 ml/min Glucose 273 H (60-115) mg/dL Calcium 9.1 (8.4-10.6) mg/dL NT-Pro-B Natriuret Pep 128 pg/mL ECG Data Attestation: I personally reviewed and interpreted this ECG as follows: Interpretation: Normal sinus rhythm. Rate is 87 beats per minute. There are no ST or T-wave abnormalities. Discharge Plan Discharge Clinical Impression: Acute lower respiratory infection Patient Disposition: Home, Self-Care Condition: Stable Additional Instructions: Take medication as prescribed. Follow up with MD return if worsening. Prescriptions: New azithromycin [Zithromax Z-Armani] 250 mg tablet 250 mg PO DAILY Qty: 6 0RF acetaminophen-codeine 300-30 mg tablet 1 tab PO Q6H PRN (Reason: pain) Qty: 15 0RF methylprednisolone [Medrol (Armani)] 4 mg tablets,dose pack See Rx Instructions .ROUTE .COMPLEX Qty: 21 0RF Rx Instructions: orally per package directions No Action ipratropium-albuterol 0.5 mg-3 mg(2.5 mg base)/3 mL solution for nebulization 3 ml inhalation Q6H PRN aspirin 81 mg tablet,chewable 81 mg PO DAILY naloxone 4 mg/actuation spray,non-aerosol 4 mg intranasal Q2-3M PRN Rx Instructions: spray 1 dose into ONE nostril; alternate nostrils w each dose until help arrives sennosides-docusate sodium 8.6-50 mg tablet 2 tab PO BID levothyroxine [Synthroid] 50 mcg tablet 50 mcg PO DAILY rosuvastatin [Crestor] 20 mg tablet 20 mg PO HS clopidogrel [Plavix] 75 mg tablet 75 mg PO DAILY nitroglycerin [Nitrostat] 0.4 mg tablet, sublingual 0.4 mg sublingual Q5M Rx Instructions: do not exceed 3 doses per episode ezetimibe [Zetia] 10 mg tablet 10 mg PO DAILY isosorbide mononitrate 60 mg tablet extended release 24 hr 120 mg PO DAILY magnesium oxide 400 mg magnesium capsule 400 mg PO DAILY Nasal [place] (sodium chloride) 0.65 % aerosol,spray 2 spray intranasal Q2H PRN meclizine 25 mg tablet 25 mg PO TID PRN metoprolol succinate 50 mg tablet extended release 24 hr 50 mg PO DAILY ondansetron HCl 4 mg tablet 4 mg PO Q8H PRN acetaminophen 500 mg tablet 1,000 mg PO TID PRN alprazolam 0.5 mg tablet extended release 24 hr 0.5 mg PO Q12H baclofen 10 mg tablet 10 mg PO BID cetirizine 10 mg tablet 10 mg PO DAILY methocarbamol 750 mg tablet 750 mg PO HS Trelegy Ellipta 100-62.5-25 mcg blister with device 1 ea inhalation DAILY mirtazapine 45 mg tablet 45 mg PO HS omega 0-jxk-rxa-fish oil [Fish Oil] 1,000 mg (120 mg-180 mg) capsule 1 cap PO HS omeprazole 20 mg capsule,delayed release(DR/EC) 20 mg PO DAILY tizanidine 4 mg tablet 4 mg PO Q6H PRN Spiriva Respimat 2.5 mcg/actuation mist 2 puff inhalation DAILY topiramate [Topamax] 25 mg tablet 25 mg PO DAILY venlafaxine 75 mg capsule,extended release 24hr 225 mg PO DAILY torsemide 20 mg tablet 20 mg PO DAILY buprenorphine HCl 2 mg Tablet, Sublingual 2 mg sublingual BID Qty: 60 0RF prednisone 10 mg tablet 10 mg PO DIRECTED 13 Days Qty: 13 0RF Rx Instructions: 3 tabs daily x3d, then 2 tabs daily x3d, then 1 tab daily x7d albuterol sulfate 90 mcg/actuation HFA aerosol inhaler 2 puff INHALATION Q4H PRN potassium chloride 20 mEq tablet,ER particles/crystals 40 meq PO DAILY Qty: 60 0RF Jardiance 25 mg tablet 25 mg PO DAILY Follow Up/Referrals: Moreno Dill MD [Primary Care Provider] - Stand Alone Forms: [email or web address] Textbook Time Info Instructions
--- OUTSIDE RECORDS SUMMARY | 2024-08-01 14:09 | XMS_ITS | Clinical Summary ---
Author Organization [facility] Address [place], [place] [address] Care Team Providers Care Manager Wind Name Role Phone Moreno Dill MD Primary [...] High 05/06/2018 Black outs Blacks out Medications aspirin chewable 81 mg chewable tabletIndications :CAD in [place] artery Chew 1 Tablet (81 mg) by [...] affected nostril(s) every 2 hours. 44 mL 2 10:32 AM SUBWAY GUARD 10/11/19 Active Additional Information Patient taking differently:2 Pearblossom NasalBID PRN, Informant: Patient's Recall, Reported on 05/14/2024 oxygen-air delivery systems (HOME OXYGEN)Indication s:COPD exacerbation [...] hours if needed for Muscle Spasm. 05/08/20 Active topiramate (TOPAMAX) 25 mg tablet Take 25 mg by mouth once daily. Active evolocumab (Repatha SureClick) 140 mg/mL subcutaneous pen injectorIndicatio ns:Hyperlipidemia , unspecified hyperlipidemia type Inject 1 mL (140 mg) subcutaneous every 2 weeks. Inject into abdomen, thigh, or upper arm; rotate injection sites. 6 mL 02/19/20 24 Active blood sugar diagnostic stripIndications: Type [...] type, unspecified whether angina present, unspecified whether [place] or transplanted heart Take 1 Tablet (75 mg) by mouth once daily in the morning. 90 Tablet 3 02/21/20 24 Active magnesium oxide (MAG-OX 400) 400 mg tabletIndications :Low magnesium level Take 1 Tablet (400 mg) by mouth once daily. 90 Tablet 3 02/21/20 24 Active mirtazapine (REMERON) 45 mg tabletIndications :Psychophysiologi kassy insomnia,Posttrau matic stress disorder Take 1 Tablet (45 mg) by mouth at bedtime. 90 Tablet 02/21/20 24 Active nitroglycerin (NITROSTAT) 0.4 mg sublingual tabletIndications :CAD in [place] artery Place 1 Tablet (0.4 mg) under [...] breath. 54 g 1 04/02/20 24 Active meclizine (ANTIVERT) 25 mg tabletIndications :Vertigo Take 1 tablet (25 mg total) by mouth 3 (three) times a day as needed for vertigo. 30 Tablet 05/01/20 24 Active levothyroxine (SYNTHROID) 50 mcg tabletIndications :Graves' disease Take 1 tablet (50 mcg total) by mouth daily. 90 Tablet 1 05/01/20 24 Active ezetimibe (ZETIA) 10 mg tabletIndications :Hyperlipidemia, unspecified hyperlipidemia type Take 1 tablet (10 mg total) by mouth at bedtime. 90 Tablet 2 05/01/20 24 Active isosorbide mononitrate (IMDUR) 60 mg extended release tablet 24 hourIndications:C AD in [place] artery Take 2 tablets (120 mg total) by mouth daily. 180 Tablet 05/01/20 24 Active metoprolol succinate (TOPROL XL) 50 mg sustained-release tabletIndications :CAD in [place] artery,AP (angina pectoris) (HC),Arterioscler otic heart disease Take 1 tablet (50 mg total) by mouth daily. 180 Tablet 05/01/20 24 Active benzonatate (TESSALON) 100 mg capsuleIndication s:COPD exacerbation (HC) Take 1 Capsule (100 mg) by mouth 3 times daily if needed for Cough. 21 Capsule 05/14/20 24 Active albuterol-ipratro pium (DUONEB) (2.5-0.5 mg) in 3 mL NEBULIZATION solutionIndicatio ns:Chronic obstructive pulmonary disease, unspecified COPD type (HC) Inhale 3 mL by nebulization every 6 (six) hours as needed for shortness of breath. 180 mL 3 06/01/20 24 Active Active Problems Problem Noted Date Diagnosed Date AP (angina pectoris) 10/08/2023 Stage 3a chronic kidney disease 10/08/2023 Atypical chest pain 02/19/2023 Abnormal cardiovascular stress test 02/19/2023 Overview (02/19/2023): - 01/30/23 NM Stress Test: 1. 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 Edema 11/08/2020 Gastroesophageal reflux disease 02/02/2020 Anxiety disorder 11/23/2019 Panic disorder 11/23/2019 Posttraumatic stress disorder 09/15/2019 Refractory migraine 07/28/2017 Asthma 12/06/2016 Overview (05/13/2020): Asthma NOS Lumbar spinal stenosis 09/19/2016 COPD (chronic obstructive pulmonary disease) Insomnia 06/04/2016 Allergic rhinitis due to pollen 06/04/2016 Arthropathy of spinal facet joint 03/23/2016 Chronic pain syndrome 11/22/2013 Overview (05/13/2020): headaches, low back pain headaches, low back pain Personal history of nicotine dependence 06/09/20 12 Overview (06/29/2021): 1/2 ppd States she quit in 2004 (occasionally tries one cigarette) Moderate episode of recurrent major depressive d isorder 01/11/2012 Overview (06/29/2021): Moderate recurrent major depression CAD (coronary artery disease) 09/28/2010 Overview (02/19/2023): ANOMALOUS CORONARY ARTERIES, mild CAD per coronary angiogram 10/03/04 - S/P CABG in 2004 at [facility] (VG to RCA and VG to mLAD) - 02/17/20: complex high risk PCI; [place] LAD reconstruction with CHAPIN X 2; SVG - RCA with 70% ostial lesion treated with CHAPIN - 03/31/21: s/p CHAPIN mLAD (ISR) - 02/19/23: The LAD is now occluded in it s mid-vessel stented segment (New since 2021 angiogram). However the mid and apical LAD fill from patent SVG SOCORRO 10/20/2019 AHI-7 09/28/2010 Other and unspecified hyperlipidemia 09/28/2010 Grave's disease 09/28/2010 Type 2 diabetes mellitus wit h circulatory disorder, without long-term current use of insulin 09/28/2010 Overview (11/10/2013): a system change updated this record. This [...] 03/06/2022 Controlled substance agreement signed 08/21/2019 09/20/2021 Overview (08/21/2019): Signed 08/17/19 Dr Anastasiia Reeves Psychiatry HLD (hyperlipidemia) 09/19/2016 022 Tobacco use disorder 09/28/2010 019 Anxiety state, unspecified 09/28/2010 0 03/14/2021 Acute postoperative pain Encounters Date Type Department Care Team Description 07/06/2024 Nurse Triage [facility] [place] [address] [place] [address] Moreno Dill MD Abdominal Pain 06/08/2024 Refill [facility] [place] [address] [place] [address] Yenny Austin MD Refill Request (Benzonatate) 05/28/2024 Refill [facility] [place] [address] [place] [address] Moreno Dill MD Refill Request (Albuterol-ipratropiu m) 05/14/2024 9:40 AM CDT Office Visit [facility] [place] [address] [facility] [address] Yenny Austin MD Asthma; Nose Problem; Cough (Started about a week ago (7 days ago). Home test for COVID-19 was negative 05/13/24); Fatigue; Allergies (Patient states she is not allergic to furosemide) 05/14/2024 Travel from Last 3 Months Immunizations Name Administration Dates Next Due COVID-19 vaccine ([employer]-Bio NTech 30mcg/0.3mL) 12YO+ BIVALENT PF, MDV 02/22/2023,07/23/2022 COVID-19 vaccine (Pfizer-Bio NTech 30mcg/0.3mL) 12YO+ MARY-SUCROSE PF, MDV 03/06/2022,10/16/2021 COVID-19 vaccine ([employer] NTech 30mcg/0.3mL) PF, MDV 01/11/2021,12/06/2020 Hepatitis B [...] Housing in the Last Year 1 05/30/2023 Comments No Sex and Gender Information Value Date Recorded Sex Assigned at Not on file Legal Sex Female 6:08 AM SUBWAY GUARD Gender Identity Not on file Sexual Orientation Not on file Obstetrics History Last Filed Vital Signs Vital Sign Reading Time Taken Comments Blood Pressure 146/73 05/14/2024 9:50 AM CDT Pulse 67 05/14/2024 9:50 AM CDT Temperature 37.2 C (98.9 F) 05/14/2024 9:50 AM CDT Respiratory Rate 18 02/19/2023 5:45 PM CDT Oxygen Saturation 93% 05/14/2024 9:50 AM CDT Inhaled Oxygen Concentration - - Weight 80.7 kg (178 lb) 05/14/2024 9:50 AM CDT Height 162.6 cm (5' 4) 11/08/2023 3:34 PM CDT Body Mass Index 30.55 11/08/2023 3:34 PM CDT Plan of Treatment Upcoming Encounters Date Type Department Care Team (Late st Contact Info) Description 08/06/2024 2:40 PM SUBWAY GUARD Office Visit [facility] [place] [address] [place] [address] Aubrey Floyd MD [address] [place] [address] Health Maintenance Due Date Last Done Comments Pap test for age 21-65 02/11/1980 Colonoscopy through age 75 02/11/2004 Mammogram for age 45-75 08/22/2023 08/22/2022 DEXA/DXA scan for age 65+ 02/11/2024 COVID-19 vaccine series (2023- season) 2024 02/22/2023, 07/23/2022, 03/06/2022, Additional history exists Influenza for age 65+ 04/26/2024 05/17/2023 , [...] 10/08/2023, 12/24/2012 Medical Devices Implanted Type Area Closing Specialist Device Identifier Shelf Expiration Date Model / Serial / Lot [id number] 15cc Mtf Chips Canclls Jar [[id number]] Implanted:Qty: 1 on 09/19/2016 by Dat Hazel MD at [facility] Explanted:at [facility] (Quantity not on file) N/A: Spine Musculoskeletal Transplant 01/30/2017 [id number]# / [id number] / [id number] 1cc Sanders Plus Paste Dbm Implanted:Qty: 1 on 09/19/2016 by Dat Hazel MD at [facility] Explanted:at [facility] (Quantity not on file) N/A: Spine Medtronic Spine/Ortho 04/05/2018 [id number]# / [id number] / Screw Cerv Ant 4x14mm Atlantistranslational Fa Slf Drill - [id number] Implanted:Qty: 4 on 09/19/2016 by Dat Hazel MD at [facility] N/A: Spine Medtronic Spine/Ortho [id number]# / / Screw Occipital 4.5x6mm Vertexselect - [id number] Implanted:Qty: 2 on 09/19/2016 by Dat Hazel MD at [facility] N/A: Spine Medtronic Spine/Ortho [id number]# / / Plate Cerv 2lvl 40mm [place] Vision Elite Ant - [id number] Implanted:Qty: 1 on 09/19/2016 by Dat Hazel MD at [facility] N/A: Spine Medtronic Spine/Ortho [id number]# / / Spacer [id number] Implanted:Qty: 1 on 09/19/2016 by Dat Hazel MD at [facility] N/A: Spine [id number] / / 70CV Description:SPACER [id number] Spacer [id number] Implanted:Qty: 1 on 09/19/2016 by Dat Hazel MD at [facility] N/A: Spine [id number] / / 32CX Description:SPACER [id number] Procedures Procedure Name Priority Date/Time Associated Diagnosis Comments LIPID PANEL Routine 01/22/2024 1:59 PM CDT Encounter for long-term (current) use of other medications LC HIV-1/O/2, 4TH GENERATION Routine 10/16/2022 1:42 PM SUBWAY GUARD Screening for HIV (human immunodeficiency virus) XR MAMMO ROMY BILAT DIAG Routine 08/22/2022 2:50 PM SUBWAY GUARD Mass of upper outer quadrant of right breast ANTI HCV Routine 10/06/2020 12:55 PM SUBWAY GUARD Need for hepatitis C screening test from Last 3 Months or Most Recently Relevant to Health Maintenance Results * LIPID PANEL (01/22/2024 1:59 PM CDT) Pathologist [facility] CHOLESTEROL,TOTAL 171 100 - 199 mg/dL 01/22/2024 10:45 PM CDT [facility] Comment: Cholesterol, Total Reference Ranges Desirable <200 mg/dL Borderline 200-239 mg/dL High >=240 mg/dL TRIGLYCERIDES 149 <150 mg/dL 01/22/2024 10:45 PM CDT [facility] HDL CHOLESTEROL 63 >40 mg/dL 10:45 PM CDT [facility] NON-HDL CHOLESTEROL 108 <145 mg/dl 01/22/2024 10:45 PM CDT [facility] CHOL/HDL RATIO 2.71 <4.50 01/22/2024 10:45 PM CDT [facility] LDL CHOLESTEROL 78 <=130 mg/dL 01/22/2024 10:45 PM CDT [facility] VLDL CHOLESTEROL 30 <=30 mg/dL 01/22/2024 10:45 PM CDT [facility] PROVIDER ORDERED STATUS FASTING 01/22/2024 10:45 PM CDT [facility] Blood BLOOD SPECIMEN / Unknown Venipuncture / Unknown 01/22/2024 1:59 PM CDT 01/22/2024 2:00 PM CDT us Moreno Dill MD CHEMISTRY Final Result [facility] [address] [place] [address], [place] * LC HIV-1/O/2, 4TH GENERATION (10/16/2022 1:42 PM SUBWAY GUARD) HIV Scr 4th Gen Non Reactive Non Reactive 10/18/2022 1:09 PM SUBWAY GUARD [facility]) Comment: HIV Negative HIV-1/HIV-2 antibodies and HIV-1 p24 antigen were NOT detected. There is no laboratory evidence of HIV infection. Blood BLOOD SPECIMEN / Unknown Butterfly / Unknown 10/16/2022 1:42 PM SUBWAY GUARD 10/16/2022 1:49 PM SUBWAY GUARD Narrative [facility] - 10/18/2022 1:09 PM SUBWAY GUARD Performed at: [address] [place] [id number] Fitter Helper: Scotty Jarrell MD, Phone: [phone] us Moreno Dill MD LABORATORY Final Result Performing Organization Address City/[facility]/ZIP Co de Phone Number [facility] ([facility] [address] [place] [address], [place] * XR MAMMO ROMY BILAT DIAG (08/22/2022 2:50 PM SUBWAY GUARD) Anatomical Region Laterality Modality BREASTS, Breast Left, Breast Right Bilateral Mammography Impressions 08/23/2022 12:21 PM SUBWAY GUARD Subcutaneous bruise RIGHT breast 11 o'clock 8 cm from the nipple. No evidence of malignancy. RECOMMENDATIONS: Routine screening mammography. BI-RADS Category 2: Benign Results and recommendations discussed with the patient. Dictated by: Ra Correia MD @08/22/2022 3:18:57 PM/bhe PATIENTS: You will also receive a letter with your examination results in an easy to read format. If you have questions about your results, please contact your referring provider. Narrative 08/23/2022 12:21 PM SUBWAY GUARD As a result of the Cures Act, medical imaging exams and procedure reports are released immediately into your electronic medical record. You may view this report before your referring provider. If you have questions, please contact your health care provider. BILATERAL BREAST MAMMOGRAM DIGITAL DIAGNOSTIC WITH COMPUTER-AIDED DETECTION AND TOMOSYNTHESIS 08/22/2022 RIGHT BREAST ULTRASOUND 08/22/2022 CLINICAL HISTORY: RIGHT [...] 1.0 x 0.8 cm. No abnormal vascularity. us Moreno Dill MD MAMMO Final Result * ANTI HCV (10/06/2020 12:55 PM SUBWAY GUARD) HEPATITIS C ANTIBODY Non-React francis Non-React francis 10/06/2020 10:54 PM SUBWAY GUARD [facility] Comment:Antibodies to HCV no t detected; does not exclude the possibility of exposure to HCV. Blood BLOOD SPECIMEN / Unknown Butterfly / Unknown 10/06/2020 12:55 PM SUBWAY GUARD 10/06/2020 1:00 PM SUBWAY GUARD us Moreno Dill MD SEND OUTS Final Result [facility] [employer] [facility] [address] [place] [address], [place] from Last 3 Months or Most Recently Relevant to Health Maintenance Insurance FOR LIFE [employer] CHO[employer] PPO MR Advance Directives * Full Code (Latest Code [...] Comments Code Status Discussion: Discussed Care Teams Manager Wind Relationship Specialty Start Date End Date Moreno Dill MD [address] [place] [address] PCP - General Family Practice 04/20/19
--- OUTSIDE RECORDS SUMMARY | 2024-08-01 14:09 | XMS_ITS | Data Portability ---
Author Organization [employer], [facility] Address [address] [address] Care Team Providers Care Bath Mix Operator Name Role Phone NUPUR BAIG PAIN MANAGEMENT [...] By Organization Details Last Modified Time 04/17/2019 [id number] Discussion: Dear Colleagues: Thank you very much [...] consultation habbasi Not available 04/17/2019 14:40:47 06/03/2019 [id number] neck pain: care instructions habbasi Not available [...] Not available 06/03/2019 16:16:55 Reason for Referral None Reported. Results Created Date Observation Date Name Description Value Unit Range Abnormal Flag Note LastModifiedBy Organization Detail LastModifiedTime 05/22/20 CT, cervi kassy spine , post- myelo gram No observ ation record ed. [email or web address] Not Available 2018 08:58:40 Result Notes None recorded. Problems Name Problem SNOMED Code Status Onset Date Resolution Date Notes Provider Name and Address Organization Details Recorded Time Neck pain 72138657 Active 04/21/20 19 Jeniffer lynch, [place] - [facility] 04/21/2019 14:46:52 Problem Notes None recorded. Procedures Surgical History None recorded. Imaging Results Imaging Date Name Status LastModified by Organiz ation Details LastModified Time 05/22/2019 CT, cervical spine, post-myelogra m completed [email or web address] Information not available 05/22/2019 08:58:40 Procedure Notes [...] 9 162.56 cm 92 /min 28 kg/m2 53474.5 6 g 96 % 96 % 138 mm[Hg] 75 mm[Hg] Jeniffer Reyes [facility] 9 13:47:10 Date Recorded Body height Heart rate Body mass index (BMI) Body weight Oxygen saturation Oxygen saturation in Arterial blood by Pulse oximetry Systolic blood pressure Diastolic blood pressure Provider Name and Address Organization Details Last Updated DateTime 9 162.56 cm 81 /min 28.7 kg/m2 92531.9 3 g 95 % 95 % 116 mm[Hg] 72 mm[Hg] Daniel Raymundo [facility] 9 15:31:43 Social History None recorded. Functional Status None recorded. Mental Status None recorded. Family History Nothing Reported. Medical History No medical history recorded. Gynecological HistoryNo gynecological history recorded. Obstetrics History GPAL:G 0 P 0 0 0 0 Past Encounters Encounter ID Performer Location Encounter Start Date Encounter Closed Date Diagnosis/Indication Diagnosis SNOMED-CT Code Diagnosis ICD10 Code [id number] Kristen Kwong MD [facility] [address] [place] [address] [address] [place] [address] 04/17/2019 13:32:59 04/20/2019 09:51:50 [id number] Kristen Kwong MD [facility] [address] [place] [address] [address] [place] [address] 06/03/2019 15:18:05 06/09/2019 13:11:32 Neck pain 60988978 M54.2 Health Concerns Section Related Observation LastModified by Organization Detai ls LastModified Time None Recorded Concern Status LastModified by Organization Details LastModified Time None Recorded Advance Directives Directive None Recorded Payers Encounter Date Sequence Insurance Name Policy Number Policy Cotton Covered Member ID Cotton Member ID Guarantor Name 04/17/2019 2 [facility] [place] Meg Ehrlicher [id number] Meg Ehrlicher 04/17/2019 1 [employer] (SECONDARY TO MEDICARE) Meg Ehrlicher [id number] Meg Ehrlicher 06/03/2019 2 [employer] [place]PLAC[place] - [place]) Meg Ehrlicher [id number] Meg Ehrlicher 06/03/2019 1 [employer] - FOR LIFE (SECONDARY TO MEDICARE) Meg Ehrlicher [id number] Meg Ehrlicher Notes Date Note Type Note Provider Name and Address Organization Details Recorded Time 04/17/2019 text/html Neck PainReporte d bypatient.Location: bilateral Quality:gnawing Severity:pain level 8/10 Neurological Complaints:numbness of the arms;pain in the arms;weakness of the arms Meg MONAHAN 59yo F 1960 #[id number] Chief Complaint: Status post previous ACDF and [...] my neurosurgical opinion. Kristen Kwong MD [address], [place], [address], [facility] [employer] 04/17/2019 14:40:54 06/03/2019 text/html Neck PainReporte d bypatient.Location: bilateral Quality:gnawing Severity:pain level 8/10 Neurological Complaints:numbness of the arms;pain in the arms;weakness of the arms Other Associated Symptoms:no swelling; no redness; no warmth; no ecchymosis; no grinding; no fever; no chills; no weight loss Meg MONAHAN 59yo F 1960 #[id number] History Patient is here with the result of the cervical myelogram. Kristen Kwong MD [address], [place], [address], [employer] 06/03/2019 16:17:01 OBGyn Episode No OBEpisode recorded.
--- OUTSIDE RECORDS SUMMARY | 2024-08-01 14:10 | XMS_ITS | Continuity of Care Document ---
Author Name [facility] Organization [facility] Care Team Providers Care Shot Blaster Name Role Phone [facility] Unavailable Unavailable Medications Combined list of outpatient medications from Department of Defense and Veterans Affairs facilities.Medications provided include 1) outpatient medications from the last 15 months, and 2) patient-reported medications. Medication Details Route Status Patient Instructions Prescription Expires Prescription Number Last Dispense Date Ordering Provider Order Date Order Qty Source Alprazolam ([employer] ZANY [facility]X) 100 TABLET in 1 BOTTLE Active [id number] 11/27/19 2 4 2023 30 Pharmac y Data Transac tion Service Facilit y ALPRAZOLAM ER (ALPRAZOLAM ), 0.5 MG, TAB ER 24H, ORAL, [facility], 60 ea. BOTTLE Active [id number] 4 2023 30 Pharmac y Data Transac tion Service Facilit y ALPRAZOLAM ER (ALPRAZOLAM ), 0.5 MG, TAB ER 24H, ORAL, [facility], 60 ea. BOTTLE Cancele d [id number] 4 [id number] : 2023 0 Pharmac y Data Transac tion Service Facilit y ALPRAZOLAM ER (ALPRAZOLAM ), 0.5 MG, TAB ER 24H, ORAL, [facility], 60 ea. BOTTLE Cancele d [id number] : 2023 0 Pharmac y Data Transac tion Service Facilit y ALPRAZOLAM ER (ALPRAZOLAM ), 0.5 MG, TAB ER 24H, ORAL, [facility], 60 ea. BOTTLE Active [id number] 4 2023 60 Pharmac y Data Transac tion Service Facilit y ALPRAZOLAM ER (ALPRAZOLAM ), 0.5 MG, TAB ER 24H, ORAL, [facility], 60 ea. BOTTLE Active [id number] 4 2023 60 Pharmac y Data Transac tion Service Facilit y ALPRAZOLAM ER (ALPRAZOLAM ), 0.5 MG, TAB ER 24H, ORAL, [facility], 60 ea. BOTTLE Active [id number] 4 2023 60 Pharmac y Data Transac tion Service Facilit y ALPRAZOLAM ER (ALPRAZOLAM ), 0.5 MG, TAB ER 24H, ORAL, [facility], 60 ea. BOTTLE Active [id number] 4 2023 60 Pharmac y Data Transac tion Service Facilit y AZITHROMYCI N (azithromyc in), 250 MG, TABLET, ORAL, SANDOZ, 30 ea. BOTTLE Active [id number] 4 2023 6 Pharmac y Data Transac tion Service Facilit y BUPRENORPHI NE HCL (BUPRENORPH INE HCL), 2 MG, TAB SUBL, SUBLINGUAL, [facility]., 30 ea. BOTTLE Cancele d [id number] : 2023 0 Pharmac y Data Transac tion Service Facilit y BUPRENORPHI NE HCL (BUPRENORPH INE HCL), 2 MG, TAB SUBL, SUBLINGUAL, [facility] 30 ea. BOTTLE Active [id number] 4 2023 150 Pharmac y Data Transac tion Service Facilit y BUPRENORPHI NE HCL (BUPRENORPH INE HCL), 2 MG, TAB SUBL, SUBLINGUAL, [facility] 30 ea. BOTTLE Active [id number] 4 2023 30 Pharmac y Data Transac tion Service Facilit y BUPRENORPHI NE HCL (BUPRENORPH INE HCL), 2 MG, TAB SUBL, SUBLINGUAL, [facility] 30 ea. BOTTLE Cancele d [id number] : 2023 0 Pharmac y Data Transac tion Service Facilit y BUPRENORPHI NE HCL (BUPRENORPH INE HCL), 2 MG, TAB SUBL, SUBLINGUAL, [facility] 30 ea. BOTTLE Cancele d [id number] : 2023 0 Pharmac y Data Transac tion Service Facilit y BUPRENORPHI NE HCL (BUPRENORPH INE HCL), 2 MG, TAB SUBL, SUBLINGUAL, [facility] 30 ea. BOTTLE Active [id number] 4 2023 180 Pharmac y Data Transac tion Service Facilit y BUPRENORPHI NE HCL (BUPRENORPH INE HCL), 2 MG, TAB SUBL, SUBLINGUAL, [facility] 30 ea. BOTTLE Cancele d [id number] : 2023 0 Pharmac y Data Transac tion Service Facilit y BUPRENORPHI NE HCL (BUPRENORPH INE HCL), 2 MG, TAB SUBL, SUBLINGUAL, [facility] 30 ea. BOTTLE Cancele d [id number] : 2023 0 Pharmac y Data Transac tion Service Facilit y BUPRENORPHI NE HCL (BUPRENORPH INE HCL), 2 MG, TAB SUBL, SUBLINGUAL, [facility] 30 ea. BOTTLE Cancele d [id number] : 2023 0 Pharmac y Data Transac tion Service Facilit y BUPRENORPHI NE HCL (BUPRENORPH INE HCL), 2 MG, TAB SUBL, SUBLINGUAL, [facility] 30 ea. BOTTLE Active [id number] 2023 157 Pharmac y Data Transac tion Service Facilit y BUPRENORPHI NE HCL (BUPRENORPH INE HCL), 2 MG, TAB SUBL, SUBLINGUAL, [facility] 30 ea. BOTTLE Cancele d [id number] : 2023 0 Pharmac y Data Transac tion Service Facilit y BUPRENORPHI NE HCL (BUPRENORPH INE HCL), 2 MG, TAB SUBL, SUBLINGUAL, [facility] 30 ea. BOTTLE Active [id number] 4 2023 72 Pharmac y Data Transac tion Service Facilit y CEPHALEXIN (CEPHALEXIN MONOHYDRATE ), 500 MG, CAPSULE, ORAL, [facility], 100 ea. BOTTLE Active [id number] 2023 28 Pharmac y Data Transac tion Service Facilit y CLONAZEPAM (clonazepam ), 0.5 MG, TABLET, ORAL, [facility], 100 ea. BOTTLE Cancele d [id number] : 2023 0 Pharmac y Data Transac tion Service Facilit y CLOPIDOGREL (CLOPIDOGRE L BISULFATE), 75 MG, TABLET, ORAL, 'S LAB, 90 ea. BOTTLE Active [id number] 2023 90 Pharmac y Data Transac tion Service Facilit y DESVENLAFAX INE SUCCINATE ER (desvenlafa xine succinate), 50 MG, TAB ER 24H, ORAL, [facility], 30 ea. BOTTLE Active [id number] 4 2023 30 Pharmac y Data Transac tion Service Facilit y EZETIMIBE (ezetimibe) , 10 MG, TABLET, ORAL, [facility], 30 ea. BOTTLE Active [id number] 4 2023 90 Pharmac y Data Transac tion Service Facilit y EZETIMIBE (ezetimibe) , 10 MG, TABLET, ORAL, [facility], 90 ea. BOTTLE Active [id number] 2023 90 Pharmac y Data Transac tion Service Facilit y IPRATROPIUM -ALBUTEROL (IPRATROPIU M/ALBUTEROL SULFATE), 0.5-3MG/3, AMPUL-NEB, INHALATION, [employer] 3 ml VIAL Cancele d [id number] : 2023 0 Pharmac y Data Transac tion Service Facilit y IPRATROPIUM -ALBUTEROL (IPRATROPIU M/ALBUTEROL SULFATE), 0.5-3MG/3, AMPUL-NEB, INHALATION, [employer] 3 ml VIAL Active [id number] 2023 180 Pharmac y Data Transac tion Service Facilit y IPRATROPIUM -ALBUTEROL (IPRATROPIU M/ALBUTEROL SULFATE), 0.5-3MG/3, AMPUL-NEB, INHALATION, [facility] [employer] 3 ml VIAL Cancele d [id number] : 2023 0 Pharmac y Data Transac tion Service Facilit y IPRATROPIUM -ALBUTEROL (IPRATROPIU M/ALBUTEROL SULFATE), 0.5-3MG/3, AMPUL-NEB, INHALATION, [employer] 3 ml VIAL Active [id number] 2023 180 Pharmac y Data Transac tion Service Facilit y IPRATROPIUM -ALBUTEROL (IPRATROPIU M/ALBUTEROL SULFATE), 0.5-3MG/3, AMPUL-NEB, INHALATION, [facility] [employer] 3 ml VIAL Active [id number] 4 2023 90 Pharmac y Data Transac tion Service Facilit y ISOSORBIDE MONONITRATE ER (isosorbide mononitrate ), 60 MG, TAB ER 24H, ORAL, [facility], 100 ea. BOTTLE Active [id number] 4 2023 180 Pharmac y Data Transac tion Service Facilit y ISOSORBIDE MONONITRATE ER (isosorbide mononitrate ), 60 MG, TAB ER 24H, ORAL, [facility], 100 ea. BOTTLE Active [id number] 4 2023 180 Pharmac y Data Transac tion Service Facilit y JARDIANCE (EMPAGLIFLO ZIN), 25 MG, TABLET, ORAL, [facility]., 30 ea. BOTTLE Cancele d [id number] : 2023 0 Pharmac y Data Transac tion Service Facilit y JARDIANCE (EMPAGLIFLO ZIN), 25 MG, TABLET, ORAL, [facility]., 30 ea. BOTTLE Cancele d [id number] : 2023 0 Pharmac y Data Transac tion Service Facilit y JARDIANCE (EMPAGLIFLO ZIN), 25 MG, TABLET, ORAL, [facility]., 30 ea. BOTTLE Cancele d [id number] : 2023 0 Pharmac y Data Transac tion Service Facilit y JARDIANCE (EMPAGLIFLO ZIN), 25 MG, TABLET, ORAL, [facility]., 30 ea. BOTTLE Cancele d [id number] : 2023 0 Pharmac y Data Transac tion Service Facilit y JARDIANCE (EMPAGLIFLO ZIN), 25 MG, TABLET, ORAL, [facility]., 30 ea. BOTTLE Active [id number] 2022 30 Pharmac y Data Transac tion Service Facilit y JARDIANCE (EMPAGLIFLO ZIN), 25 MG, TABLET, ORAL, [facility] ING., 30 ea. BOTTLE Active [id number] 2023 30 Pharmac y Data Transac tion Service Facilit y JARDIANCE (EMPAGLIFLO ZIN), 25 MG, TABLET, ORAL, [facility] ING., 30 ea. BOTTLE Active [id number] 2023 30 Pharmac y Data Transac tion Service Facilit y JARDIANCE (EMPAGLIFLO ZIN), 25 MG, TABLET, ORAL, [facility]EHR[facility]ER ING., 30 ea. BOTTLE Active [id number] 2023 30 Pharmac y Data Transac tion Service Facilit y LEVOFLOXACI N (LEVOFLOXAC IN), 750 MG, TABLET, ORAL, 'S LAB, 30 ea. BOTTLE Active [id number] 4 2023 5 Pharmac y Data Transac tion Service Facilit y LEVOTHYROXI NE SODIUM (levothyrox ine sodium), 50 MCG, TABLET, ORAL, [facility]UPIN PHARMACE[facility], 100 ea. BOTTLE Active [id number] 2023 30 Pharmac y Data Transac tion Service Facilit y METOPROLOL SUCCINATE (metoprolol succinate), 50 MG, TAB ER 24H, ORAL, [facility], 100 ea. BOTTLE Active [id number] 4 2023 90 Pharmac y Data Transac tion Service Facilit y METOPROLOL SUCCINATE (metoprolol succinate), 50 MG, TAB ER 24H, ORAL, [facility], 100 ea. BOTTLE Active [id number] 2023 90 Pharmac y Data Transac tion Service Facilit y MIRTAZAPINE (MIRTAZAPIN E), 30 MG, TABLET, ORAL, [facility], 30 ea. BOTTLE Active [id number] 2023 45 Pharmac y Data Transac tion Service Facilit y MIRTAZAPINE (MIRTAZAPIN E), 30 MG, TABLET, ORAL, [facility], 30 ea. BOTTLE Cancele d [id number] : 2023 0 Pharmac y Data Transac tion Service Facilit y MIRTAZAPINE (MIRTAZAPIN E), 30 MG, TABLET, ORAL, [facility], 30 ea. BOTTLE Cancele d [id number] : 2023 0 Pharmac y Data Transac tion Service Facilit y MIRTAZAPINE (MIRTAZAPIN E), 30 MG, TABLET, ORAL, [facility], 30 ea. BOTTLE Active [id number] 2023 30 Pharmac y Data Transac tion Service Facilit y MIRTAZAPINE (MIRTAZAPIN E), 45 MG, TABLET, ORAL, [facility], 30 ea. BOTTLE Active [id number] 2023 30 Pharmac y Data Transac tion Service Facilit y MIRTAZAPINE (MIRTAZAPIN E), 45 MG, TABLET, ORAL, [facility], 30 ea. BOTTLE Active [id number] 2023 30 Pharmac y Data Transac tion Service Facilit y MIRTAZAPINE (MIRTAZAPIN E), 45 MG, TABLET, ORAL, [facility], 30 ea. BOTTLE Active [id number] 2023 30 Pharmac y Data Transac tion Service Facilit y OLANZAPINE (OLANZAPINE ), 2.5 MG, TABLET, ORAL, 'S LAB, 30 ea. BOTTLE Active [id number] 2023 90 Pharmac y Data Transac tion Service Facilit y OLANZAPINE (OLANZAPINE ), 2.5 MG, TABLET, ORAL, 'S LAB, 30 ea. BOTTLE Active [id number] 2023 90 Pharmac y Data Transac tion Service Facilit y OLANZAPINE (OLANZAPINE ), 2.5 MG, TABLET, ORAL, 'S LAB, 30 ea. BOTTLE Cancele d [id number] : 2023 0 Pharmac y Data Transac tion Service Facilit y OLANZAPINE (OLANZAPINE ), 2.5 MG, TABLET, ORAL, 'S LAB, 30 ea. BOTTLE Active [id number] 2023 60 Pharmac y Data Transac tion Service Facilit y OLANZAPINE (OLANZAPINE ), 2.5 MG, TABLET, ORAL, 'S LAB, 30 ea. BOTTLE Active [id number] 2023 60 Pharmac y Data Transac tion Service Facilit y OMEPRAZOLE (omeprazole ), 20 MG, CAPSULE , ORAL, [employer], 100 ea. BOTTLE Active [id number] 4 2023 90 Pharmac y Data Transac tion Service Facilit y OMEPRAZOLE (omeprazole ), 20 MG, CAPSULE , ORAL, [employer], 100 ea. BOTTLE Active [id number] 2023 90 Pharmac y Data Transac tion Service Facilit y OMEPRAZOLE (omeprazole ), 20 MG, CAPSULE , ORAL, [employer], 100 ea. BOTTLE Active [id number] 4 2023 90 Pharmac y Data Transac tion Service Facilit y ONDANSETRON HCL (ONDANSETRO N HCL), 4MG, TABLET, ORAL, [facility], 30 ea. BOTTLE Active [id number] 2023 20 Pharmac y Data Transac tion Service Facilit y OXYCODONE-A CETAMINOPHE N (oxycodone HCl/acetami nophen), 5 MG-325MG, TABLET, ORAL, [employer], 100 ea. BOTTLE Active [id number] 2023 20 Pharmac y Data Transac tion Service Facilit y PAXLOVID (EUA) (nirmatrelv ir/ritonavi r), 300-100 MG, TAB DS PK, ORAL, [facility]., 30 ea. BLIST PACK Active [id number] 4 2023 30 Pharmac y Data Transac tion Service Facilit y POTASSIUM CHLORIDE (potassium chloride), 20 MEQ, TAB ER PRT, ORAL, UPSHER-KULWANT H LA, 100 ea. BOTTLE Cancele d [id number] : 2022 0 Pharmac y Data Transac tion Service Facilit y PRAZOSIN HCL (prazosin HCl), 1 MG, CAPSULE, ORAL, [facility]ARMA I, 100 ea. BOTTLE Active [id number] 2023 30 Pharmac y Data Transac tion Service Facilit y PRAZOSIN HCL (prazosin HCl), 1 MG, CAPSULE, ORAL, BI[facility] PHARMA I, 100 ea. BOTTLE Active [id number] 2023 30 Pharmac y Data Transac tion Service Facilit y PRAZOSIN HCL (prazosin HCl), 1 MG, CAPSULE, ORAL, BI[employer] PHARMA I, 100 ea. BOTTLE Active [id number] 4 2023 30 Pharmac y Data Transac tion Service Facilit y PRAZOSIN HCL (prazosin HCl), 2 MG, CAPSULE, ORAL, [facility] [facility]ARMA I, 100 ea. BOTTLE Active [id number] 2023 30 Pharmac y Data Transac tion Service Facilit y PRAZOSIN HCL (prazosin HCl), 2 MG, CAPSULE, ORAL, [facility] [facility]ARMA I, 100 ea. BOTTLE Active [id number] 2023 30 Pharmac y Data Transac tion Service Facilit y PRAZOSIN HCL (prazosin HCl), 2 MG, CAPSULE, ORAL, [facility] [facility]ARMA I, 100 ea. BOTTLE Cancele d [id number] : 2023 0 Pharmac y Data Transac tion Service Facilit y PRAZOSIN HCL (prazosin HCl), 2 MG, CAPSULE, ORAL, [facility]ARMA I, 100 ea. BOTTLE Active [id number] 2023 90 Pharmac y Data Transac tion Service Facilit y PRAZOSIN HCL (prazosin HCl), 2 MG, CAPSULE, ORAL, [facility] [facility]ARMA I, 100 ea. BOTTLE Active [id number] 2023 90 Pharmac y Data Transac tion Service Facilit y PRAZOSIN HCL (prazosin HCl), 5 MG, CAPSULE, ORAL, [facility]ARMA I, 100 ea. BOTTLE Active [id number] 2023 30 Pharmac y Data Transac tion Service Facilit y PRAZOSIN HCL (prazosin HCl), 5 MG, CAPSULE, ORAL, BI[facility]ON PHARMA I, 100 ea. BOTTLE Active [id number] 2023 30 Pharmac y Data Transac tion Service Facilit y PRAZOSIN HCL (prazosin HCl), 5 MG, CAPSULE, ORAL, BIOCON PHARMA I, 100 ea. BOTTLE Active [id number] 2023 30 Pharmac y Data Transac tion Service Facilit y PREDNISONE (PREDNISONE ), 10MG, TABLET, ORAL, [facility], 100 ea. BOTTLE Active [id number] 2023 13 Pharmac y Data Transac tion Service Facilit y PREDNISONE (PREDNISONE ), 10MG, TABLET, ORAL, [facility], 100 ea. BOTTLE Active [id number] 2023 30 Pharmac y Data Transac tion Service Facilit y PREDNISONE (PREDNISONE ), 20MG, TABLET, ORAL, [facility], 100 ea. BOTTLE Active [id number] 2023 10 Pharmac y Data Transac tion Service Facilit y RAMELTEON (ramelteon) , 8 MG, TABLET, ORAL, UPSHER-KULWANT H LA, 30 ea. BOTTLE Active [id number] 2023 60 Pharmac y Data Transac tion Service Facilit y RAMELTEON (ramelteon) , 8 MG, TABLET, ORAL, UPSHER-KULWANT H LA, 30 ea. BOTTLE Cancele d [id number] : 2023 0 Pharmac y Data Transac tion Service Facilit y RAMELTEON (ramelteon) , 8 MG, TABLET, ORAL, UPSHER-KULWANT H LA, 30 ea. BOTTLE Active [id number] 2023 60 Pharmac y Data Transac tion Service Facilit y RAMELTEON (ramelteon) , 8 MG, TABLET, ORAL, UPSHER-KULWANT H LA, 30 ea. BOTTLE Active [id number] 2023 30 Pharmac y Data Transac tion Service Facilit y TIZANIDINE HCL (TIZANIDINE HCL), 4MG, TABLET, ORAL, [facility], 150 ea. BOTTLE Active [id number] 2023 90 Pharmac y Data Transac tion Service Facilit y TIZANIDINE HCL (TIZANIDINE HCL), 4MG, TABLET, ORAL, [facility], 150 ea. BOTTLE Active [id number] 2023 90 Pharmac y Data Transac tion Service Facilit y TIZANIDINE HCL (TIZANIDINE HCL), 4MG, TABLET, ORAL, [facility], 150 ea. BOTTLE Active [id number] 2023 90 Pharmac y Data Transac tion Service Facilit y TIZANIDINE HCL (TIZANIDINE HCL), 4MG, TABLET, ORAL, [facility], 150 ea. BOTTLE Active [id number] 2022 90 Pharmac y Data Transac tion Service Facilit y TIZANIDINE HCL (TIZANIDINE HCL), 4MG, TABLET, ORAL, [facility], 150 ea. BOTTLE Active [id number] 4 2023 90 Pharmac y Data Transac tion Service Facilit y TORSEMIDE (TORSEMIDE) , 20MG, TABLET, ORAL, [facility], 100 ea. BOTTLE Active [id number] 4 2023 160 Pharmac y Data Transac tion Service Facilit y TRELEGY ELLIPTA (fluticason e furoate/ume clidinium bromide/kylie anterol trifenat), 100-62.5, BLST W/DEV, INHALATION, [facility], 60 ea. BLIST PACK Active [id number] 3 2022 180 Pharmac y Data Transac tion Service Facilit y TRELEGY ELLIPTA (fluticason e furoate/ume clidinium bromide/kylie anterol trifenat), 100-62.5, BLST W/DEV, INHALATION, GLAXOSMITHK LINE, 60 ea. BLIST PACK Active [id number] 4 2023 180 Pharmac y Data Transac tion Service Facilit y TRELEGY ELLIPTA (fluticason e furoate/ume clidinium bromide/kylie anterol trifenat), 100-62.5, BLST W/DEV, INHALATION, [employer]XOS[employer] LINE, 60 ea. BLIST PACK Active [id number] 4 2023 180 Pharmac y Data Transac tion Service Facilit y VENTOLIN HFA (ALBUTEROL SULFATE), 90MCG, HFA AER AD, INHALATION, GLAXOSMITHK LINE, 18 g CANISTER Active [id number] 4 2023 18 Pharmac y Data Transac tion Service Facilit y VENTOLIN HFA (ALBUTEROL SULFATE), 90MCG, HFA AER AD, INHALATION, GLAXOSMITHK LINE, 18 g CANISTER Active [id number] 4 2023 18 Pharmac y Data Transac tion Service Facilit y VENTOLIN HFA (ALBUTEROL SULFATE), 90MCG, HFA AER AD, INHALATION, GLAXOSMITHK LINE, 18 g CANISTER Active [id number] 4 2023 18 Pharmac y Data Transac tion Service Facilit y VENTOLIN HFA (ALBUTEROL SULFATE), 90MCG, HFA AER AD, INHALATION, GLAXOSMITHK LINE, 18 g CANISTER Active [id number] 4 2023 36 Pharmac y Data Transac tion Service Facilit y Allergies, Adverse Reactions, Alerts Combined list of allergies from Department of Defense and Veterans Affairs facilities. It does not include entries that were removed or entered in error. Substance Category Reaction Severity Reaction type Status Date Reported Comments Source PENICILLIN Propensity to adverse reactions to drug (finding) [facility] 12[facility] PERCOCET Propensity to adverse reactions to drug (finding) active 05/01/1996 [facility] SULFA DRUGS Propensity to adverse reactions to drug (finding) active 04/20/[facility] Immunizations Combined list of available immunizations from the Department of Defense and Veterans Affairs facilities. Immunization Series Date Given Administered By Site Reaction Lot Number CVX Code Drug Dispatch Associate Status Comments Source INFLUENZA (HISTORICAL) 1997 YVONNE KHAN [address] [facility] Social History Combined list of available smoking, tobacco, and other social history from Department of Defense and Veterans Affairs facilities. Social History Type Response Date Comment Sour e This section is an empty social history section. DoD
[2024-08-01 14:30] LABS: Basophils Percent Auto 0.3 % (0.0-3.0); Hematocrit 48.4 % (33.0-51.0); Hemoglobin* 16.1 gm/dL (12.0-16.0); Immature Granulocytes Pct Auto 0.6 %; Mean Corpuscular HGB Conc 33 gm/dL (32-36); Mean Corpuscular Hemoglobin 31 pg (26-34); Mean Corpuscular Volume 94 fL (80-100); Neutrophils Percent Auto 70.1 % (42.0-72.0); Platelet Count* 288 K/uL (140-440); RDW Coefficient of Variation % 12.3 % (11.5-15.5); Red Blood Count 5.17 m/uL (4.00-5.20); White Blood Count* 15.55 K/uL (4.50-11.00)
[2024-08-01 14:39] LABS: Slide Review Reflex No
[2024-08-01 14:40] LABS: Chloride* 92 mmol/L (96-114); Potassium* 3.7 mmol/L (3.6-5.1); Sodium* 133 mmol/L (135-149)
[2024-08-01 14:43] LABS: Anion Gap 7 mEq/L (7-15); Blood Urea Nitrogen* 26 mg/dL (7-30); Carbon Dioxide* 34 mmol/L (20-32); Creatinine* 0.7 mg/dL (0.5-1.5); Est. Creatinine Clearance* 48.43; Estimated Glomerular Filt Rate 96 ml/min
[2024-08-01 14:44] LABS: Calcium* 9.1 mg/dL (8.4-10.6); Glucose* 273 mg/dL (60-115)
[2024-08-01 14:56] LABS: NT Pro B Type NatriureticPept* 128 pg/mL
[2024-08-01] MEDS: HYDROmorphone 0.5 mg/0.5 ml inj IVP (14:59)
[2024-08-01] MEDS: ONDANSETRON 2 MG/ML inj 4 MG IVP (14:59)
[2024-08-01 15:30] VITALS: BP 132/84; PULSE 87; O2SAT 93
--- OUTSIDE RECORDS SUMMARY | 2024-08-05 12:59 | XMS_ITS | Data Portability ---
Author Organization [facility] [employer], [facility] - OP Address [address] [address] Care Team Providers Care Burial Needs Salesperson Name Role Phone [facility] [...] By Organization Details Last Modified Time 04/17/2019 15742 Discussion: Dear Colleagues: Thank you very much [...] consultation habbasi Not available 04/17/2019 14:40:47 06/03/2019 [id number] neck pain: care instructions habbasi Not available [...] Address Organization Details Recorded Time Neck pain 83539288 Active 04/21/20 19 Jeniffer [place], [place] - [...] 9 162.56 cm 92 /min 28 kg/m2 96043.5 6 g 96 % 96 % 138 mm[Hg] 75 mm[Hg] Jeniffer Reyes [facility] 9 13:47:10 Date Recorded Body height Heart rate Body mass index (BMI) Body weight Oxygen saturation Oxygen saturation in Arterial blood by Pulse oximetry Systolic blood pressure Diastolic blood pressure Provider Name and Address Organization Details Last Updated DateTime 9 162.56 cm 81 /min 28.7 kg/m2 46670.9 3 g 95 % 95 % 116 mm[Hg] 72 mm[Hg] Daniel Raymundo [facility] 9 15:31:43 Social History None recorded. Functional Status None recorded. Mental Status None recorded. Family History Nothing Reported. Medical History No medical history recorded. Gynecological HistoryNo gynecological history recorded. Obstetrics History GPAL:G 0 P 0 0 0 0 Past Encounters Encounter ID Performer Location Encounter Start Date Encounter Closed Date Diagnosis/Indication Diagnosis SNOMED-CT Code Diagnosis ICD10 Code [id number] Kristen Kwong MD [facility] [address] [place] [address] [place] [address] 04/17/2019 13:32:59 04/20/2019 09:51:50 [id number] Kristen Kwong MD [facility] [address] [place] [address] [place] [address] 06/03/2019 15:18:05 06/09/2019 13:11:32 Neck pain 13747952 M54.2 Health Concerns Section Related Observation LastModified by Organization Detai ls LastModified Time None Recorded Concern Status LastModified by Organization Details LastModified Time None Recorded Advance Directives Directive None Recorded Payers Encounter Date Sequence Insurance Name Policy Number Policy Cotton Covered Member ID Cotton Member ID Guarantor Name 04/17/2019 1 [employer] - FOR LIFE (SECONDARY TO MEDICARE) Meg Ehrlicher [id number] Meg Ehrlicher 04/17/2019 2 [facility] (MEDICAID REPLACEMENT - HMO) Meg Ehrlicher [id number] Meg Ehrlicher 06/03/2019 1 [employer] - FOR LIFE (SECONDARY TO MEDICARE) Meg Ehrlicher [id number] Meg Ehrlicher 06/03/2019 2 [facility] (MEDICAID REPLACEMENT - HMO) Meg Ehrlicher [id number] Meg Ehrlicher Notes Date Note Type Note Provider Name and Address Organization Details Recorded Time 04/17/2019 text/html Neck PainReporte d bypatient.Location: bilateral Quality:gnawing Severity:pain level 8/10 Neurological Complaints:numbness of the arms;pain in the arms;weakness of the arms Meg MONAHAN 59yo F 1960 #[id number] Chief Complaint: Status post previous ACDF and [...] Kwong MD [address], [place], [address], [facility] [employer] 04/17/2019 14:40:54 06/03/2019 text/html Neck PainReporte d bypatient.Location: bilateral Quality:gnawing Severity:pain level 8/10 Neurological Complaints:numbness of the arms;pain in the arms;weakness of the arms Other Associated Symptoms:no swelling; no redness; no warmth; no ecchymosis; no grinding; no fever; no chills; no weight loss Meg MONAHAN 59yo F 1960 #[id number] History Patient is here with the result of the cervical myelogram. Kristen Kwong MD [address], [place], [address], [facility] 06/03/2019 16:17:01 OBGyn Episode No OBEpisode recorded.
== END 2024-08-01 15:41 | disposition home or self-care (01) ==
PROVIDERS: Emergency Provider Emergency Medicine Emergency Medical Services; PCP Family Medicine
DX: J22 Unspecified acute lower respiratory infection (principal)
CPT/HCPCS: 36415; 71101; 80048; 83880; 85025; 93005; 99284; J1171; J2405

== ENCOUNTER 2024-11-23 12:59 | Inpatient (IN) | payer OTHER, SELFPAY ==
[2024-11-23] VITALS (15 sets, daily range): BP systolic 113–178; BP diastolic 44–101; PULSE 66–97; RESP 18–24; TEMP 35.7–36.6; O2SAT 84–98; BMI 30.4
--- OUTSIDE RECORDS SUMMARY | 2024-11-23 13:01 | XMS_ITS ---
Author Organization [facility] Care Team Providers Care Keeper Helper Name Role Phone Cinda Suleman Unavailable Unavailable Allergies and adverse reactions Code CodeSystem Substance Reaction Severity StartDate Concern Status CODEINE, IMITREX , MAXALT, LATEX, NIACIN Unknown Unknown active Care Team Name Role Address Phone Organization Dates Suleman Loo [facility] [address] [address], [place], [address], [place] (Office): : [facility] 07/01/2011 - 07/07/2011 Immunizations Immunization Status Vaccine Details Vaccine Code CodeSystem Date Notes Influenza completed Influenza, high-dose, split virus, quadrivalent, injectable, preservative free 197 CVX created date: 08/14/2013 administer ed date: 06/25/2011 rec'd out of this facility 06/25/2011 TB 2 Step Mantoux Skin Test completed tuberculin skin test; unspecified formulation Given Right Forearm Step 1 of Multi-step 98 CVX created date: 08/14/2013 consent date: 07/01/2011 administer ed date: 07/01/2011 Mental Status Section Date Assessment Total Score Description 07/07/2011 BIMS 15 cognitively int act PHQ-9 05 mild depression Reason for Referral No Reasons for Referral Entered Social History Social History Observation Description Start Date End Date Code Code System Current Smoking Status Tobacco smoking consumption unknown 310623429 SNOMED CT Sex Assigned At Female 1960 51696-1 LOINC Vital Signs Code Code System Vitals Name Values and Units Timing Information 8302-2 LOINC Height Value=64.0 Units=Inches 07/09/2011 2339-0 [facility] Blood Sugar Eethb=277.0 Units=mg/dL 07/04/2011 12803-7 [facility] Weight Rmvmy=188.6 Units=Lbs 02/2011 9279-1 [facility] Respiratory Rate Value=18.0 Units=/m in 07/02/2011 8462-4 [facility] Blood Pressure-Diastolic Value=77 Un its=mmHg 07/02/2011 8480-6 [facility] Blood Pressure-Systolic Dfufe=869 Un its=mmHg 07/02/2011 8310-5 [facility] Body Temperature Value=97.1 Units= F 07/02/2011 8867-4 [facility] Heart rate Value=91.0 Units=/min 02/2011 47641-1 [facility] O2 % dC Oximetry Value=96.0 Units= % 07/02/2011
--- OUTSIDE RECORDS SUMMARY | 2024-11-23 13:01 | XMS_ITS | Encounter Summary ---
Author Organization [facility] er Address [address] [place] [address] Care Team Providers Care Log Haul Chain Feeder Name Role Phone Nicolás Tyler MD Primary Care Provider [phone] Reason for Visit * Reason Onset Date Comments Requesting cough medication 11/19/2024 Encounter Details Date Type Department Care Team ([facility] Contact Info) Description 11/19/2024 Telephone [place] [address] [place] [address] Nicolás Tyler MD 170[facility] [address] [place] [address] Requesting cough medication Social History Tobacco Use Types Packs/Day Years Used Date Smoking Tobacco: Former Cigarettes Passive Smoke Exposure: Past Smokeless Tobacco: Never Alcohol Use Standard Drinks/Week Comments Never 0 (1 standard drink = 0.6 oz pur e alcohol) B1300 Health Literacy Answer Date Recor ded How often do you need to hav e someone help you when you read instructions, pamphlets, or other written material from your doctor or pharmacy? Never 11/17/2024 [facility] Utilities Answer Date Recorded In the past 12 months has e [employer] gas, oil, or water [employer] threatened to shut off services in your home? No 11/17/2024 Humiliation, Afraid, Rape, and Kick questionnair e Answer Date Recorded Within the last year, have y ou been afraid of your partner or ex-partner? No 11/17/2024 Within the last year, have y ou been humiliated or emotionally abused in other ways by your partner or ex-partner? No Within the last year, have y ou been kicked, hit, slapped, or otherwise physically hurt by your partner or ex-partner? No 11/17/2024 Within the last year, have y ou been raped or forced to have any kind of sexual activity by your partner or ex-partner? No 11/17/2024 Social Connection and Isolat ion Panel [NHANES] Answer Date Recorded In a typical week, how many times do you talk on the phone with family, friends, or neighbors? More than three times a week 11/17/2024 How often do you get togethe r with friends or relatives? Twice a week 11/17/2024 How often do you attend chur ch or anabaptism services? More than 4 times per year 11/17/2024 Do you belong to any clubs o r organizations such as yazidi groups, unions, fraternal or athletic groups, or school groups? No 11/17/2024 How often do you attend meet ings of the clubs or organizations you belong to? Patient declined 11/17/2024 Are you , , di vorced, , never , or living with a partner? 11/17/2024 AUDIT-C Answer Date Recorded Q1: How often do you have a drink containing alc ohol? Never 11/17/2024 Q2: How many drinks containi ng alcohol do you have on a typical day when you are drinking? Patient declined 11/17/2024 Q3: How often do you have si x or more drinks on one occasion? Never 11/17/2024 Overall Financial Resource Strain (CARDIA) Answe r Date Recorded How hard is it for you to pa y for the very basics like food, housing, medical care, and heating? Not very hard 11/17/2024 PHQ-2 Answer Date Recorded PHQ-9 Total Score 6 11/17/2024 [facility] - Occupational Stress Questionnaire Answer Date Recorded Do you feel stress - tense, restless, nervous, or anxious, or unable to sleep at night because your mind is troubled all the time - these days? Only a little 11/17/2024 Exercise Vital Sign Answer Date Recorde d On average, how many days pe r week do you engage in moderate to strenuous exercise (like a brisk walk)? 3 days 11/17/2024 On average, how many minutes do you engage in exercise at this level? 60 min 11/17/2024 Hunger Vital Sign Answer Date Recorded Within the past 12 months, y ou worried that your food would run out before you got the money to buy more. Never true 11/18/19 25 Within the past 12 months, t he food you bought just didn't last and you didn't have money to get more. Never true 11/17/2024 PRAPARE - Transportation Answer Date Re corded In the past 12 months, has l ack of transportation kept you from medical appointments or from getting medications? No 10/25 In the past 12 months, has l ack of transportation kept you from meetings, work, or from getting things needed for daily living? No 11/17/2024 Housing Stability Vital Sign Answer Raphael e Recorded In the last 12 months, was t here a time when you were not able to pay the mortgage or rent on time? No 11/17/2024 In the past 12 months, how m any times have you moved where you were living? 0 11/17/2024 At any time in the past 12 m [facility], were you homeless or living in a nursing home (including now)? No 11/17/2024 Interpersonal Safety Questionnaire Answer Date Recorded How often does anyone, bashir doan family and friends, physically hurt you? Never 11/17/2024 How often does anyone, bashir doan family and friends, insult or talk down to you? Never 11/17/2024 How often does anyone, bashir doan family and friends, threaten you with harm? Never 11/17/2024 How often does anyone, bashir doan family and friends, threaten you with harm? Never 11/17/2024 Education Answer Date Recorded What is the highest level of school you have completed or the highest degree you have received? Associate degree: occupational, technical, or vocational program 11/17/2024 Comments No Sex and Gender Information Value Date Recorded Sex Assigned at Not on file Legal Sex Female 7:42 PM CDT Gender Identity Not on file Sexual Orientation Not on file Occupation Industry Job Start Date Job End Date Retired Not on file Not on file Not on file documented as of this encounter Miscellaneous Notes * Telephone Encounter - Makenzie Preciado LPN, RN Student - 11/19/2024 1:41 PM CDT The patient was informed of the lab result letter from Dr. Tyler and he also sent in for Meg mcbride for her cough as she requested. documented in this encounter Plan of Treatment Upcoming Encounters Date Type Department Care Team (Late st Contact Info) Description 01/26/2025 1:00 PM CDT Office Visit [address] [address] 02/17/2025 2:20 PM CDT Office Visit [address] [address] Nicolás Tyler MD [address] [address] 02/18/2025 1:20 PM CDT Office Visit [address] [address] [place] [address] [place], [place] [id number] documented as of this encounter Visit Diagnoses Not on filedocumented in this encounter Care Teams Log Haul Chain Feeder Relationship Specialty Start Date End Date Nicolás [place] [address] [place] [phone] PCP - General Family Medicine 10/08/24 Dr Esposito Consulting Physician 01/26/20 [facility] Pain Clinic [facility] Consulting Physician Neurology 01/26/20 documented as of this encounter
--- OUTSIDE RECORDS SUMMARY | 2024-11-23 13:01 | XMS_ITS | Data Portability ---
Author Organization [facility], [facility] Address [address], [place] [address] Care Team Providers Care Black Oxide Operator Name Role Phone NUPUR BAIG PAIN [...] By Organization Details Last Modified Time 04/17/2019 [id number] Discussion: Dear Colleagues: Thank you very much [...] consultation habbasi Not available 04/17/2019 14:40:47 06/03/2019 [id number] neck pain: care instructions habbasi Not available [...] Address Organization Details Recorded Time Neck pain 04425324 Active 04/21/20 19 Jeniffer [place], [place] - [...] 9 162.56 cm 92 /min 28 kg/m2 83204.5 6 g 96 % 96 % 138 mm[Hg] 75 mm[Hg] Jeniffer Reyes eflow 9 13:47:10 Date Recorded Body height Heart rate Body mass index (BMI) Body weight Oxygen saturation Oxygen saturation in Arterial blood by Pulse oximetry Systolic blood pressure Diastolic blood pressure Provider Name and Address Organization Details Last Updated DateTime 9 162.56 cm 81 /min 28.7 kg/m2 55771.9 3 g 95 % 95 % 116 mm[Hg] 72 mm[Hg] Daniel Raymundo eflow 9 15:31:43 Social History None recorded. Functional Status None recorded. Mental Status None recorded. Family History Nothing Reported. Medical History No medical history recorded. Gynecological HistoryNo gynecological history recorded. Obstetrics History GPAL:G 0 P 0 0 0 0 Past Encounters Encounter ID Performer Location Encounter Start Date Encounter Closed Date Diagnosis/Indication Diagnosis SNOMED-CT Code Diagnosis ICD10 Code Diagnosis Note [id number] Kristen Kwong MD [facility] [place] [address] [place] [address] [place] [address] 04/17/2019 13:32:59 04/20/2019 09:51:50 [id number] Kristen Kwong MD [facility] e [place] [address] [place] [address] 06/03/2019 15:18:05 06/09/2019 13:11:32 Neck pain 17753940 M54.2 Health Concerns Section Related Observation LastModified by Organization Detai ls LastModified Time None Recorded Concern Status LastModified by Organization Details LastModified Time None Recorded Advance Directives Directive None Recorded Payers Encounter Date Sequence Insurance Name Policy Number Policy Cotton Covered Member ID Cotton Member ID Guarantor Name 04/17/2019 2 [facility] (MEDICAID REPLACEMENT - HMO) Meg Ehrlicher [id number] Meg Ehrlicher 04/17/2019 1 [employer] FOR [employer] (SECONDARY TO MEDICARE) Meg Ehrlicher [id number] Meg Ehrlicher 06/03/2019 2 [facility] (MEDICAID REPLACEMENT - HMO) Meg Ehrlicher [id number] Meg Ehrlicher 06/03/2019 1 [employer] - FOR LIFE (SECONDARY TO MEDICARE) Meg Ehrlicher [id number] Meg Ehrlicher Notes Date Note Type Note Provider Name and Address Organization Details Recorded Time 04/17/2019 text/html Neck PainReporte d bypatient.Location: bilateral Quality:gnawing Severity:pain level 8/10 Neurological Complaints:numbness of the arms;pain in the arms;weakness of the arms Meg MONAHAN 59yo F 1960 #[id number] Chief Complaint: Status post previous ACDF and [...] Kwong MD [address], [place], [address], eflow 04/17/2019 14:40:54 06/03/2019 text/html Neck PainReporte d bypatient.Location: bilateral Quality:gnawing Severity:pain level 8/10 Neurological Complaints:numbness of the arms;pain in the arms;weakness of the arms Other Associated Symptoms:no swelling; no redness; no warmth; no ecchymosis; no grinding; no fever; no chills; no weight loss Megmely MONAHAN 59yo F 1960 #[id number] History Patient is here with the result of the cervical myelogram. Kristen Kwong MD [address], [place], [address], eflow 06/03/2019 16:17:01 OBGyn Episode No OBEpisode recorded.
--- OUTSIDE RECORDS SUMMARY | 2024-11-23 13:01 | XMS_ITS | Encounter Summary ---
Author Organization [facility] er Address [address] [place] [address] Care Team Providers Care Flight Attendant/Inflight Manager Name Role Phone Nicolás Tyler MD Primary Care Provider [phone]- [phone] Reason for Visit * Reason Onset Date Comments Referral to be faxed 11/17/2024 Encounter Details Date Type Department Care Team ([facility] st Contact Info) Description 11/17/2024 Telephone [place] [address] [place] [address] Nicolás Tyler MD [facility] [address] [place] [address] Referral to be faxed Social History Tobacco Use Types Packs/Day Years [...] from your doctor or pharmacy? Never 11/17/2024 [employer] Utilities Answer Date Recorded In the past 12 months has e [employer] gas, oil, or water [employer] threatened to shut off services in your [...] 11/17/2024 How often do you attend chur or scientology services? More than 4 times per year 11/17/2024 Do you belong to any clubs o r organizations such as islam groups, unions, fraOrecon or athletic groups, or school groups? No [...] Date Recorded PHQ-9 Total Score 6 11/17/2024 [facility] Occup[facility] ional Health - Occupational [...] any time in the past 12 m [facility], were you homeless or living in a senior care (including now)? No 11/17/2024 Interpersonal Safety Questionnaire [...] encounter Miscellaneous Notes * Telephone Encounter - Kathleen Mayo - 11/17/2024 4:25 PM CDT Referrals faxed. * Telephone Encounter - Makenzie Preciado LPN, RN Student - 11/17/2024 3:10 PM CDT Please fax referrals times two. documented in this encounter Plan of Treatment Upcoming Encounters Date Type Department Care Team (Late st Contact Info) Description 01/26/2025 1:00 PM CDT Office Visit [address] [address] 02/17/2025 2:20 PM CDT Office Visit [address] [address] Nicolás Tyler MD [address] [address] 02/18/2025 1:20 PM CDT Office Visit [address] [address] Jose Lincoln MD [address] [place] [address] documented as of this encounter Visit Diagnoses Not on filedocumented in this encounter Additional Health Concerns Infection Onset Date Last Indicated Resolved Time COVID-19 Rule Out 11/17/2024 11/17/2024 11/17/2024 3:34 PM CDT documented as of this encounter Care Teams Flight Attendant/Inflight Manager Relationship Specialty Start Date End Date Nicolás Tyler MD [address] [address] PCP - General Family Medicine 10/08/24 Dr Esposito Consulting Physician 01/26/20 [facility] Pain [facility] Consulting Physician Neurology 01/26/20 documented as of this encounter
--- OUTSIDE RECORDS SUMMARY | 2024-11-23 13:01 | XMS_ITS | Encounter Summary ---
Author Organization [facility] er Address [address] [place] [id number] Care Team Providers Care Stunner Name Role Phone Nicolás Tyler MD Primary Care Provider [phone] Reason for Visit * Reason Comments Consult CAD/HF * Consultation (Routine) - Authorized Specialty Diagnoses / Procedures Referred By Contac t Referred To Contact Cardiology Diagnoses Coronary artery disease involving big lagoon coronary artery of big lagoon heart without angina pectoris Moderate mixed hyperlipidemia not requiring statin therapy Heart failure with preserved ejection fraction, unspecified HF chronicity (HCC) Nicolás [place] [address] [place] [phone] Phone: tel: fax: CARDIOLOGY [address] [place] [phone] Phone: tel: fax: Referral ID Status Reason Start Date Expiration Date Visits Requested Visits Authorized [id number] Authorized Specialty Services Required 10/08/2024 10/08/2025 1 1 Encounter Details Date Type Department Care Team (Late st Contact Info) Description 11/05/2024 1:40 PM CDT Consult [place] [address] [place] [address] Jose Lincoln MD [address] [place] [address] Coronary artery disease involving big lagoon coronary artery of big lagoon heart without angina pectoris (Primary Dx); Heart failure with preserved ejection fraction, unspecified HF chronicity (HCC); Mild aortic stenosis by prior echocardiogram; Moderate mixed hyperlipidemia not requiring statin therapy; History of coronary artery bypass graft x 2; Type 2 diabetes mellitus with other circulatory complication, without long-term current use of insulin (HCC); Stage 3a chronic kidney disease (HCC); Opioid dependence with opioid-induced disorder (HCC); Cluster B personality disorder (HCC); Obstructive sleep apnea (adult) (pediatric); Chronic obstructive pulmonary disease, unspecified COPD type (HCC) Social History Tobacco Use Types Packs/Day Years Used Date Smoking Tobacco: Former Cigarettes Smokeless Tobacco: Never Tobacco Cessation:Counseling Given: Not Answered Alcohol Use Standard Drinks/Week Comments Never 0 (1 standard drink = 0.6 oz pur e alcohol) AUDIT-C Answer Date Recorded Q1: How often do you have a drink containing alc ohol? Never 01/26/2020 Average Number of Drinks Not on file 020 Frequency of Binge Drinking Not on file 09/2019 PHQ-2 Answer Date Recorded PHQ-9 Total Score 8 02/02/2020 Comments Unknown Sex and Gender Information Value Date Recorded Sex Assigned at Not on file Legal Sex Female 7:42 PM CDT Gender Identity Not on file Sexual Orientation Not on file documented as of this encounter Last Filed Vital Signs Vital Sign Reading Time Taken Comments Blood Pressure 118/60 11/05/2024 1:31 PM CDT Pulse 73 11/05/2024 1:31 PM CDT Temperature 36.4 C (97.6 F) 11/05/2024 1:31 PM CDT Respiratory Rate 16 11/05/2024 1:31 PM CDT Oxygen Saturation 95% 11/05/2024 1:31 PM CDT Inhaled Oxygen Concentration - - Weight 82.3 kg (181 lb 8 oz) 11/05/2024 1:31 PM CDT Height - - Body Mass Index 31.15 10/08/2024 2:48 PM [employer]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 female who is here for recent transfer of care, extensive cardiovascular history and comorbidities. The patient has the following abbreviated history: This is a very pleasant patient previously followed primarily through the [facility] system in the [place], referred by Dr. Tyler to establish cardiovascular care and follow-up. She has comorbidities of type 2 diabetes, class I obesity, chronic pain syndrome on opioids and controlled substance agreement, PTSD, stage IIIa CKD, COPD, obstructive sleep apnea. From a cardiovascular perspective, her history is mostly pertinent for a history of coronary arterydisease with previous bypass surgery in 2004 at [facility] with a saphenous vein graft to right coronary artery and a saphenous vein graft to mid LAD. In 2019 she had stenting of the big lagoon LADand a stent to vein graft to right coronary artery. In 2020 she had in-stent restenosis to the stent in the mid LAD, treated with another drug-eluting stent. In September of 2021 she had a repeat angiography showing patent stents and no significant new lesions. She last saw Dr. Lam and a nuclear stress test showed a small area of mild abnormality in the mid and apical anterior septum, and she subsequently underwent repeat coronary angiography on February 19, 2023 showing patent grafts. 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 There was nothing for PCI, and she was discharged on continued medical therapy.She does have COPD and some chronic pain issues. She has anxiety and some atypical chest pain symptoms which are chronic. Most recent echocardiogram exactly a year ago through the [facility] system, with mild calcific aortic stenosis. Overall, at the present time, she is doing well, she does have a history of chronic atypical chest discomfort, which may be variable in terms of presentation, day or night, and most of the time nonexertional. It may be present in the early hours of the morning. Currently, most of her exercise comes from walking, she denies typical exertional angina with that activity, no symptoms of orthopnea, PND, or progressive peripheral edema. She is on a stable dose of a diuretic, and has not required recently to use nitroglycerin. I asked her a little bit about her statin and PCSK9, she acknowledges being on the Repatha, she is on a low-dose of rosuvastatin, I asked her if this medication had been uptitrated previously and sheindicates that not. The following portions of the patient's history were reviewed and updated as appropriate: allergies, current medications, family history, medical history, social history, surgical history and problemlist. ALLERGIES Allergies Allergen Reactions Codeine Anaphylaxis and Itching Fentanyl Other (see comments) Other Reaction(s): Respiratory Depression My oxygen went down 02/19- tolerated for angiogram Latex Anaphylaxis and Rash Olanzapine Shortness of breath Quetiapine Shortness of breath Other Reaction(s): Bronchospasm, Chest Pain, Respiratory Distress Rizatriptan Anaphylaxis and Other (see comments) MAXALT flushing Sumatriptan Anaphylaxis Trazodone Other (see comments) Black outs Black outs Black outs Black outs Atorvastatin Other (see comments) Other reaction(s): Myalgia, Myalgia Gabapentin Nausea And Vomiting and GI intolerance Metformin Other (see comments) Other Reaction(s): GI intolerance Nausea, and it made me smell bad. Nausea, and it made me smell bad. Other reaction(s): GI intolerance Nausea, and it made me smell bad. Niacin Headache and Rash Other reaction(s): Flushing Burning skin, per Cerner Buspirone Other (see comments) Possible cause of rash HOME MEDICATIONS Current Outpatient Medications Medication Sig Dispense Refill albuterol HFA (PROVENTIL HFA;VENTOLIN HFA) 108 (90 Base) MCG/ACT inhaler Inhale 1-2 puffs every 4 (four) hours if needed Ascorbic Acid (VITAMIN C) 500 MG chewable tablet 1 (one) time each day aspirin 81 MG chewable tablet Chew 2 tablets (162 mg total) 1 (one) time each day [facility] Blood Glucose Monitoring Suppl (FIFTY50 GLUCOSE METER 2.0) w/Device kit 1 (one) time each day calcium citrate-vitamin D (CALTRATE w/ERGOCALCIFEROL) 315-250 MG-UNIT tablet Take 1 tablet by mouth1 (one) time each day cetirizine (ZyrTEC) 10 MG tablet Take 1 tablet (10 mg total) by mouth once daily as needed clopidogrel (PLAVIX) 75 MG tablet 1 tablet (75 mg total) 1 (one) time each day Stent Evolocumab (Repatha SureClick) 140 MG/ML solution auto-injector Inject 140 mg under the skin once every 2 weeks ezetimibe (ZETIA) 10 MG tablet Take 1 tablet (10 mg total) by mouth every night cholesterol glipiZIDE (GLUCOTROL XL) 2.5 MG 24 hr tablet Take 1 tablet (2.5 mg total) by mouth daily glucose blood ([employer] TEST STRIPS) test strip 1 (one) time each day HYDROcodone-acetaminophen (NORCO) 7.5-325 MG per tablet Take 1 tablet by mouth 3 (three) times a day if needed ipratropium-albuterol (DUO-NEB) 0.5-2.5 mg/3 mL nebulizer solution Inhale 3 mL if needed Allergy induced Asthma isosorbide mononitrate (IMDUR) 120 MG 24 hr tablet 1 tablet (120 mg total) 1 (one) time each day Vasal spasms Lancets misc 1 (one) time each day levothyroxine (SYNTHROID) 50 MCG tablet Take 1 tablet (50 mcg total) by mouth 1 (one) time each day90 tablet 0 lidocaine (LIDODERM) 5 % Apply 1 patch topically 1 (one) time each day Apply to painful area 12 hours per day, remove for 12 hours. 30 patch 1 losartan (Cozaar) 50 MG tablet Take 1 tablet (50 mg total) by mouth 1 (one) time each day 90 tablet0 Magnesium Cl-Calcium Carbonate 71.5-119 MG tablet delayed-release Take 2 tablets by mouth daily meclizine (ANTIVERT) 25 MG tablet Take 1 tablet (25 mg total) by mouth 3 (three) times a day if needed methocarbamol (ROBAXIN) 750 MG tablet Take 1 tablet (750 mg total) by mouth every night metoprolol succinate XL (TOPROL-XL) 50 MG 24 hr tablet Take 1 tablet (50 mg total) by mouth 1 (one)time each day Blood pressure mirtazapine (REMERON) 15 MG tablet Take 1 tablet (15 mg total) by mouth every night Sleep Naloxone HCl (Narcan) 4 MG/0.1ML liquid if needed nitroglycerin (NITROSTAT) 0.[address] 1 tablet (0.4 mg total) under the tongue if neededfor chest pain Angina 25 tablet 1 OLANZapine (ZyPREXA) 2.5 MG tablet Take 2 tablets (5 mg total) by mouth daily omega-3 (FISH OIL) 1000 MG capsule Take 1 capsule (1,000 mg total) by mouth daily Omeprazole 20 MG tablet delayed-release Take 20 mg by mouth daily ondansetron (ZOFRAN) 4 MG tablet 2 (two) times a day if needed PARoxetine (PAXIL) 40 MG tablet potassium chloride (KLOR-CON M) 20 MEQ CR tablet Take 2 tablets (40 mEq total) by mouth daily prazosin (MINIPRESS) 1 MG capsule Take 2 capsules (2 mg total) by mouth every night rosuvastatin (CRESTOR) 5 MG tablet Take 2 tablets (10 mg total) by mouth every night cholesterol senna 8.6 MG tablet Take 2 tablets (17.2 mg total) by mouth daily senna-docusate (PERICOLACE) 8.6-50 MG per tablet Take 2 tablets by mouth 1 (one) time each day Shar[employer] Container (VDAKWI-D-PMIDY LOCKING BRACKET) [facility] New CPAP machine for home use at pressure: 5-16 cmw , Heated humidifier x 1 q 5 yr, Humidifier chamber x 1 q 6 mo, nasal face mask x1 q 3mos, with cushion x 2 q mo, Heated tubing x 1 q 3 mo, Headgear x 1 q 6 mo, Filters: Disposable x 2 q mo non-disposable filters x1 q 6mo, Length of Need: 99 months, Frequency of use: Daily topiramate (TOPAMAX) 25 MG tablet Take 1 tablet (25 mg total) by mouth 1 (one) time each day torsemide (DEMADEX) 20 MG tablet Take 1 tablet (20 mg total) by mouth daily Trelegy Ellipta 100-62.5-25 MCG/ACT aerosol powder Inhale 1 puff daily No current facility-administered medications for this visit. SOCIAL HISTORY reports that she has quit smoking. Her smoking use included cigarettes. She has never used smokeless tobacco. She reports that she does not drink alcohol and does not use drugs. FAMILY HISTORY Her father of premature coronary artery disease at age 50 PHYSICAL EXAMINATION VITAL SIGNS: Visit Vitals BP 118/60 (BP Location: Left arm, Patient Position: Sitting, BP Cuff Size: Adult) Pulse 73 Temp 36.4 ??C (97.6 ??F) (Temporal) Resp 16 No data recorded There is no height or weight on file to calculate BMI. Cardiovascular: regular rhythm, normal S1, A2 is present and normal, discrete 2/6 early crescendo crescendo murmur best heard at the right upper sternal border with no radiation Pulmonary: Clear lungs, no rales, no wheezing, no rhonchi DIAGNOSTICS Lab Results Component Value Date WBC 16.1 (H) 10/08/2024 HGB 15.0 10/08/2024 HCT 45.8 (H) 10/08/2024 MCV 94.8 10/08/2024 PLT 275 10/08/2024 Chemistry Component Value Date/Time NA 139 10/08/2024 1539 K 5.0 10/08/2024 1539 CL 99 10/08/2024 1539 CO2 29 10/08/2024 1539 BUN 12 10/08/2024 1539 CREATININE 0.6 10/08/2024 1539 Component Value Date/Time CALCIUM 9.5 10/08/2024 1539 ALKPHOS 80 01/26/2020 1006 AST 29 01/26/2020 1006 ALT 25 01/26/2020 1006 BILITOT <0.7 01/26/2020 1006 CGFR Date Value Ref Range Status 01/26/2020 51 (A) Final AAGFR Date Value Ref Range Status 01/26/2020 >60 Final Comment: GFR calculated from serum creatinine value Chronic Kidney Disease less than 60 mL/min/1.73 m2 Kidney Failure less than 15 mL/min/1.73 m2 Note: effective 01/08/07 IDMS-Traceable MDRD Study Equation used. Lab Results Component Value Date ALT 25 01/26/2020 AST 29 01/26/2020 ALKPHOS 80 01/26/2020 BILITOT <0.7 01/26/2020 Lab Results Component Value Date CHOL 206 (H) 10/08/2024 TRIG 202 (H) 10/08/2024 HDL 79 10/08/2024 LDLCALC 87 10/08/2024 Lab Results Component Value Date TSH 1.51 10/08/2024 Transthoracic echocardiogram 10/24/2023, [facility] Final Impressions: 1. Normal LV size, normal wall thickness, estimated EF of 65 - 70%. 2. Normal RV size and systolic function. 3. The aortic valve is trileaflet and sclerotic, mild stenosis and no regurgitation. 4. Unable to estimate PA pressures due to insufficient tricuspid jet. VISIT DIAGNOSES 1. Coronary artery disease involving big lagoon coronary artery of big lagoon heart without angina pectoris 2. Heart failure with preserved ejection fraction, unspecified HF chronicity (HCC) 3. Mild aortic stenosis by prior echocardiogram 4. Moderate mixed hyperlipidemia not requiring statin therapy 5. History of coronary artery bypass graft x 2 6. Type 2 diabetes mellitus with other circulatory complication, without long- term current use of insulin (HCC) 7. Stage 3a chronic kidney disease (HCC) 8. Opioid dependence with opioid-induced disorder (HCC) 9. Cluster B personality disorder (HCC) 10. Obstructive sleep apnea (adult) (pediatric) 11. Chronic obstructive pulmonary disease, unspecified COPD type ([facility]) ASSESSMENT / PLAN Overall, given the extent of her cardiovascular history and other clinical comorbidities, she is doing fairly well. There has been a thought in the past, since it was not confirmed on invasive angiography, that someof her occasional symptoms may correspond to atypical angina and some degree of endothelial dysfunction. I do not think, and this is also supported by her most recent coronary angiogram not too long ago in 2022 with patent stents and grafts and no additional obstructive lesions, that her manifestations correspond to obstructive epicardial disease. In that sense, there was a preliminary thought of perhaps changing the timing of some of the medications for angina. We discussed this and she wants to give that a try. We also discussed that for maximum secondary prevention, continued optimization of risk factors is important including management of diabetes, and lipids. Certainly, her most ideal goal if possible would be less than 55, but, the minimum acceptable for her based on her extensive history would be less than 70. She is in the mid 80s, so my inclination is to increase her statin and reassess things in a few weeks down the road. Plan -Continue isosorbide 120 mg daily, switch to a.m. -Continue 50 mg of metoprolol succinate, switch to before p.m. -Increase rosuvastatin to 20 mg daily, I have sent an updated prescription -Continue modification of other cardiovascular risk factors and physical activity as tolerated -For her mild aortic stenosis, repeat TTE should be obtained in 2026 to assess for progression -We plan to follow-up in 12 weeks with a repeat fasting panel to reassess LDL status and clinical symptoms. Thank you so much for your referral, please let us know if there are any additional questions or changes in status/developments. MARGIN CODE [id number] Total time: 65 min, including electronic medical records and diagnostic testing review, direct [id number] contact, counseling and education, and preparation of clinical documentation. documented in this encounter Plan of Treatment Upcoming Encounters Date Type Department Care Team (Late st Contact Info) Description 01/26/2025 1:00 PM CDT Office Visit [address] [address] 02/17/2025 2:20 PM CDT Office Visit [address] [address] Nicolás [place] [address] [place] [phone] 02/18/2025 1:20 PM CDT Office Visit [address] [address] Jose Lincoln MD [address] [place] [phone] Scheduled Orders Name Type Priority Associated Diagnoses Orde r Schedule Lipid panel (fasting) Lab Routine Coronary artery disease involving big lagoon coronary artery of big lagoon heart without angina pectoris Heart failure with preserved ejection fraction, unspecified HF chronicity (HCC) History of coronary artery bypass graft x 2 Expected: 02/05/2025 (Approximate), Expires: 11/05/2025 documented as of this encounter Visit Diagnoses Diagnosis Coronary artery disease involving big lagoon coronary artery of big lagoon heart without angina pectoris- Primary Heart failure with preserved ejection fraction, unspecified HF chronicity (HCC) Mild aortic stenosis by prior echocardiogram Moderate mixed hyperlipidemia not requiring statin therapy History of coronary artery bypass graft x 2 Type 2 diabetes mellitus with other circulatory complication, without long-term current use of insulin (HCC) Stage 3a chronic kidney disease (HCC) Opioid dependence with opioid-induced disorder (HCC) Cluster B personality disorder (HCC) Unspecified personality disorder Obstructive sleep apnea (adult) (pediatric) Chronic obstructive pulmonary disease, unspecified COPD type (HCC) documented in this encounter Care Teams Stunner Relationship Specialty Start Date End Date Nicolás Tyler MD [address] [place] [phone] PCP - General Family Medicine 10/08/24 Dr Epsosito Consulting Physician 01/26/20 [facility] Consulting Physician Neurology 01/26/20 documented as of this encounter
--- OUTSIDE RECORDS SUMMARY | 2024-11-23 13:02 | XMS_ITS | Encounter Summary ---
Author Organization [facility] Address [address] [place] [address] Care Team Providers Care Marketing Operations Assistant Name Role Phone Levi North MD Primary Care Provider [phone] Reason for Referral * Consultation (Routine) - Authorized Specialty Diagnoses / Procedures Referred By Jenifer anderson Referred To Contact Ophthalmology Diagnoses Type 2 diabetes mellitus with other circulatory complication, without long-term current use of insulin (HCC) Levi North MD [address] [facility] [address] [place] [address] Phone: tel: fax: Ophthalmology [address] [place] [address] Phone: tel: fax: Referral ID Status Reason Start Date Expiration Date Visits Requested Visits Authorized [id number] Authorized Specialty Services Required 11/17/2024 11/17/2025 1 1 Scheduling Instructions Please call the Ophthalmology Manager Shipping desk at [phone] to schedule an appointment. * Consultation (Routine) - Pending Review Specialty Diagnoses / Procedures Referred By Jenifer anderson Referred To Contact Diagnoses Screening for osteoporosis Levi North MD [address] [facility] [address] [place] [address] Phone: tel: fax: Referral ID Status Reason Start Date Expiration Date V isits Requested Visits Authorized [id number] Pending Review 11/17/2024 11/18/2025 1 1 * Consultation (Routine) - Pending Review Specialty Diagnoses / Procedures Referred By Jenifer anderson Referred To Contact Diagnoses Encounter for screening mammogram for malignant neoplasm of breast Levi North MD [address] [place] [phone] Phone: tel: fax: Referral ID Status Reason Start Date Expiration Date V isits Requested Visits Authorized [id number] Pending Review 11/17/2024 11/18/2025 1 1 * Imaging (Routine) - Authorized Specialty Diagnoses / Procedures Referred By Jenifer anderson Referred To Contact Radiology Diagnoses Screening for osteoporosis Procedures Dexa bone density axial skeleton Levi North MD [address] [place] [phone] Phone: tel: fax: Referral ID Status Reason Start Date Expiration Date V isits Requested Visits Authorized [id number] Authorized 11/17/2024 11/17/2025 1 1 Reason for Visit * Reason Comments Welcome To Medicare Encounter Details Date Type Department Care Team (Latest Contact Info) Description 11/17/2024 2:20 PM CDT Office Visit [address] [address] Levi North MD [address] [place] [phone] Medicare welcome visit (Primary Dx); Fatigue, unspecified type; Acute cough; History of coronary artery bypass graft x 2; Mild aortic stenosis by prior echocardiogram; Graves' disease; Type 2 diabetes mellitus with other circulatory complication, without long-term current use of insulin (HCC); Stage 3a chronic kidney disease (HCC); Coronary artery disease involving umatilla tribe coronary artery of umatilla tribe heart without angina pectoris; Moderate mixed hyperlipidemia not requiring statin therapy; Heart failure with preserved ejection fraction, unspecified HF chronicity (HCC); Gastroesophageal reflux disease, unspecified whether esophagitis present; Cluster B personality disorder (HCC); Moderate episode of recurrent major depressive disorder (HCC); PTSD (post-traumatic stress disorder); Chronic obstructive pulmonary disease, unspecified COPD type (HCC); Screen for colon cancer; Screening for osteoporosis; Encounter for screening mammogram for malignant neoplasm of breast; Periodontal abscess Social History Tobacco Use Types Packs/Day Years Used Date Smoking Tobacco: Former Cigarettes Passive Smoke Exposure: Past Smokeless Tobacco: Never Tobacco Cessation:Counseling Given: Not Answered Alcohol Use Standard Drinks/Week Comments Never 0 (1 standard drink = 0.6 oz pur e alcohol) B1300 Health Literacy Answer Date Recor ded How often do you need to hav e someone help you when you read instructions, pamphlets, or other written material from your doctor or pharmacy? Never 11/17/2024 [facility] Utilities Answer Date Recorded In the past 12 months has e [employer], [employer], oil, or water [employer] threatened to shut off services in your [...] week 11/17/2024 How often do you attend up health system or restoration services? More than 4 times per year 11/17/2024 Do you belong to any clubs o r organizations such as shinto groups, unions, fraternal or athletic groups, or [...] Date Recorded PHQ-9 Total Score 6 11/17/2024 [facility] - Occupational Stress Questionnaire Answer Date Recorded [...] money to buy more. Never true 11/18/19 Within the past 12 months, t he [...] any time in the past 12 m [facility], were you homeless or living in a long term (including now)? No 11/17/2024 Interpersonal Safety Questionnaire [...] Sign Reading Time Taken Comments Blood Pressure 105/60 11/17/2024 2:24 PM CDT Pulse 79 11/17/2024 2:24 PM CDT Temperature 36.8 C (98.2 F) 11/17/2024 2:24 PM CDT Respiratory Rate 16 11/17/2024 2:24 PM CDT Oxygen Saturation 91% 11/17/2024 2:24 PM CDT Inhaled Oxygen Concentration - - Weight 84 kg (185 lb 3.2 oz) 11/17/2024 2:24 PM CDT Height 162.6 cm (5' 4) 11/17/2024 2:24 PM CDT Body Mass Index 31.79 11/17/2024 2:24 PM CDT documented in this encounter Patient Instructions * Patient Instructions* Levi North MD - 11/17/2024 2:20 PM CDT 1. Someone should contact you about setting up your bone density scan 2. Please report to [facility] to do your screening mammogram 3. I sent in prednisone for the cough and augmentin for the tooth documented in this encounter Progress Notes * Levi North MD - 11/17/2024 2:20 PM CDT Annual Wellness Visit We reviewed her previsit labs which included an LDL of 87 and negative hepatitis C, her urine microalbumin ratio was less than 30. The following portions of the patient's chart were reviewed in this encounter and updated as appropriate: Tobacco Allergies Meds Med Hx Surg Hx OB Status Fam Hx Soc Hx Visit Vitals BP 105/60 Pulse 79 Temp 36.8 ??C (98.2 ??F) (Temporal) Resp 16 Ht 1.626 m (5' 4) Wt 84 kg (185 lb 3.2 oz) SpO2 91% BMI 31.79 kg/m?? OB Status Hysterectomy Smoking Status Former BSA 1.95 m?? Pain Assessment Scored: 8 and location: Generalized BMI/weight management reviewed: BMI: Body mass index is 31.79 kg/m??. Fall Risk Assessment performed. Scored: (Patient-Rptd) 11/06 Tug time: 10 seconds PHQ-9 mental health screening performed. Scored:(Patient-Rptd) 6 (11/17/2024 2:06 PM)/27 TARA-7 anxiety screening performed. Scored:6 (11/17/2024 2:14 PM)/21 Mini-Cog test performed. Scored: 5/5 CAGE-AID test performed. Advanced Care Planning: Advance Directive: Patient does not have advance directive, Patient would not like information Would you like to review your Advance Directive?: Not applicable Information Provided on Healthcare Directives: No Patient Requests Assistance: No The following healthcare items are recommended to you based on your age, sex, personal and family history: Health Maintenance Topic Date Due Bone Density Scan Never done Colorectal Cancer Screening Never done Diabetes: Retinopathy Screening Never done Medicare Annual Wellness Visit (AWV) Never done Diabetes: Foot Exam Never done Mammogram 08/22/2023 Diabetes: Hemoglobin A1C 04/07/2025 Lipid Panel 10/08/2025 Diabetes: Urine Protein Screening 10/08/2025 Fall Risk Performed 11/17/2025 DTaP,Tdap,and Td Vaccines (4 - Td or Tdap) 10/08/2033 COVID-19 Vaccine Completed Pneumococcal Vaccine: 50+ Years Completed Influenza Vaccine Completed Zoster Vaccines Completed HPV Vaccines Aged Out Pap Smear Discontinued ASCVD Risk Score: The ASCVD Risk score (Jonny SADLER, et al., 2019) failed to calculate for the following reasons: Risk score cannot be calculated because patient has a medical history suggesting prior/existing ASCVD Prostate Cancer Screening: (Male patients only) No results found for: PSA, PSAD Hepatitis C Screening: Recommended for those born between [id number], receiving blood transfusion before 1991, illicit injection drug use Lab Results Component Value Date HEPCAB NON-REACTIVE 10/08/2024 Glaucoma Screening: Recommended annually if you have diabetes, family history of glaucoma, and over 50 or and over 65. AAA Screening: Screening recommended if not previously done if you have a family history of abdominal aortic aneurysm, or are male age 65-75 and have smoked at least 100 cigarettes in your lifetime Lung Cancer Screening: Recommended annually if age 50-77, asymptomatic, current smoker or quit in last 15 years and have at least a 20 year ???pack year?? history. Social Drivers of Health with Concerns Tobacco Use: Medium Risk (11/17/2024) Social Connections: Moderately Isolated (11/17/2024) Depression: At risk (11/17/2024) General Care Management Assessment completed with:: Self (11/17/2024 2:13 PM) How do you rate your overall health?: (!) Fair (11/17/2024 2:13 PM) Enrolled in care coordination:: No (11/17/2024 2:13 PM) Do you receive care from providers outside of [facility]: Yes (11/17/2024 2:13 PM) Provider Information:: [facility] in [place], [place] (11/17/2024 2:13 PM) Do you have a Home Health Agency or receive Home Health Care Respiratory Therapist Assistance?: No (11/17/2024 2:13 PM) Equipment used at home:: CPAP (11/17/2024 2:13 PM) Supplier Name:: cpap supplies (11/17/2024 2:13 PM) Do you have or see a dentist regularly?: No (11/17/2024 2:13 PM) Do you receive routine eye care?: Yes (11/17/2024 2:13 PM) Location of last eye exam:: [facility] (11/17/2024 2:13 PM) Do you wear hearing aids:: No (11/17/2024 2:13 PM) Do you have trouble hearing the TV or conversations:: No (11/17/2024 2:13 PM) Do you have concerns about your hearing?: No (11/17/2024 2:13 PM) How many times in the last 6 months have you been to the emergency room?: 0 (11/17/2024 2:13 PM) How many times in the last 6 months have you been admitted to the hospital?: 0 (11/17/2024 2:13 PM) Home Safety and Activities of Daily Living Screening Does your home have rugs, poor lighting, or slippery floors?: No (11/17/2024 2:13 PM) Do you use any grab bars in your bathroom, stairs, or steps?: (!) No (11/17/2024 2:13 PM) Do you have functional smoke and carbon monoxide detectors: Yes (11/17/2024 2:13 PM) Please rate your level of assistance needed with eating:: Independent (11/17/2024 2:13 PM) Please rate your level of assistance needed with walking: Independent (11/17/2024 2:13 PM) Please rate your level of assistance needed with using stairs: Independent (11/17/2024 2:13 PM) Please rate your level of assistance needed when using the bathroom: Independent (11/17/2024 2:13 PM) Please rate your level of assistance needed when bathing: Independent (11/17/2024 2:13 PM) Please rate your level of assistance needed when getting dressed: Independent (11/17/2024 2:13 PM) Please rate your level of assistance needed when cooking: Independent (11/17/2024 2:13 PM) Please rate your level of assistance needed with laundry: Independent (11/17/2024 2:13 PM) Please rate your level of assistance needed with taking medications: Independent (11/17/2024 2:13 PM) Please rate your level of assistance needed with finances: Independent (11/17/2024 2:13 PM) Please rate your level of assistance needed when shopping for groceries: Independent (11/17/2024 2:13 PM) Please rate your level of assistance needed with housework: Independent (11/17/2024 2:13 PM) Please rate your level of assistance needed with driving/transportation: Independent (11/17/2024 2:13 PM) Please rate your level of assistance needed with home repair: Independent (11/17/2024 2:13 PM) An Annual Wellness Visit was completed today with your healthcare team. This visit allows us to review your health history and identify current or potential risks. Referrals, immunizations, and/or testing may be available to you based on these findings. Please let your healthcare team know if you would like any of these services offered today or at any time in the future. Materials for review regarding available services and resources will be provided. Don't hesitate to reach out to your healthcare team with any questions or concerns. She is here for annual exam but she is also struggling with some acute concerns she has had 2 to 3 days of worsening cough congestion and mucus production positive sick contacts subjective malaise subjective fevers. He is also complaining of tooth pain and has quite poor dentition. Review of systems positive for cough congestion wheeze otherwise negative Physical exam general moderate distress HEENT normocephalic atraumatic pupils equal round and reactive to light TMs visualized and normal bilaterally oropharynx had very poor dentition along with a alot of tenderness on palpation of 1 of those teeth. He lungs bilaterally had a wheeze as well as rhonchi extremities have 1+ edema Assessment and plan today we performed COVID testing as well as influenza testing and results were as follows: Negative She will need prednisone 40 mg daily for 5 days to help with the COPD exacerbation. For her periodontal abscess we will go ahead and treat her with Augmentin for 10 days * Sole Zaldivar - 11/17/2024 2:20 PM CDT Referral faxed to [facility] for mammo; fax [phone]. * Sole Zaldivar - 11/17/2024 2:20 PM CDT Referral faxed to [facility] for RAD for DEXA scan; fax [phone]. documented in this encounter Miscellaneous Notes * Addendum Note - Levi North MD - 11/17/2024 2:20 PM CDTAddended by: LEVI NORTH on: 11/19/2024 01:40 PM Modules accepted: Orders documented in this encounter Plan of Treatment Upcoming Encounters Date Type Department Care Team (Late st Contact Info) Description 01/26/2025 1:00 PM CDT Office Visit [address] [address] 02/17/2025 2:20 PM CDT Office Visit [address] [address] Levi North MD [address] [place] [phone] 02/18/2025 1:20 PM CDT Office Visit [address] [address] [place] [address] [place] [address] Scheduled Orders Name Type Priority Associated Diagnoses Orde r Schedule Dexa bone density axial skeleton Imaging Routine Screening for osteoporosis Expected: 11/17/2024, Expires: 11/17/2025 Cologuard Lab Routine Screen for colon cancer 1 Occurrences starting 11/17/2024 until 11/17/2025 Scheduled Referrals Name Type Priority Associated Diagnoses Order Schedule Ambulatory External Referral [facility]; Radiology Outpatient Referral Routine Encounter for screening mammogram for malignant neoplasm of breast Ordered: 11/17/2024 Ambulatory External Referral [facility]; Radiology Outpatient Referral Routine Screening for osteoporosis Ordered: 11/17/2024 Ambulatory referral to Ophthalmology Outpatient Referral Routine Type 2 diabetes mellitus with other circulatory complication, without long-term current use of insulin (HCC) 1 Occurrences starting 11/17/2024 until 11/17/2025 documented as of this encounter Procedures Procedure Name Priority Date/Time Associated Diagnosis Comments MANUAL DIFFERENTIAL (AFTER VERIF OF AUTO) Routine 11/17/2024 3:15 PM CDT VITAMIN D, TOTAL Routine 11/17/2024 2:58 PM CDT Fatigue, unspecified type CBC BRANCH OFFICE W/DIFF Routine 11/17/2024 2:58 PM CDT TSH Routine 11/17/2024 2:58 PM CDT Graves' disease HEMOGLOBIN A1C Routine 11/17/2024 2:58 PM CDT Type 2 diabetes mellitus with other circulatory complication, without long-term current use of insulin (HCC) FLU(A/B), ROGERS ID NOW, PCR Routine 11/17/2024 2:41 PM CDT Acute cough COVID-19, ROGERS ID NOW, PCR Routine 11/17/2024 2:41 PM CDT Acute cough documented in this encounter Results * (ABNORMAL) Manual Differential (after verif of auto) (11/17/2024 3:15 PM CDT) Pathologist [facility] Manual Differential PERFORMED 11/18/2024 1:48 PM CDT [facility] Neutrophils % 59.0 % 11/18/2024 1:48 PM T [facility] Lymphocytes % 27.0 % 11/18/2024 1:48 PM T [facility] Monocytes % 12.0 % 11/18/2024 1:48 PM [facility] Eosinophils % 0.00 % 11/18/2024 1:48 PM T [facility] Basophils % 2.0 % 11/18/2024 1:48 PM T [facility] Absolute Neutrophils 4.2 1.7 - 7.0 K/uL 11/18/2024 1:48 PM T [facility] Lymphocytes Absolute 1.9 0.9 - 2.9 K/uL 11/18/2024 1:48 PM [facility] Monocytes Absolute 0.9 0.3 - 0.9 K/uL 11/18/2024 1:48 PM [facility] Eosinophils Absolute 0.0(L) 0.1 - 0.5 K/uL 11/18/2024 1:48 PM [facility] Basophils Absolute 0.1 0.0 - 0.1 K/uL 11/18/2024 1:48 PM [facility] Slide Review PERFORMED 11/18/2024 1:48 PM [facility] RBC Morphology NORMAL 11/18/2024 1:48 PM [facility] PLT Morphology ADEQUATE 11/18/2024 1:48 PM [facility] Total Counted 100 11/18/2024 1:48 PM [facility] 11/17/2024 3:15 PM CDT 11/18/2024 12:27 PM CDT us Levi North MD LAB BLOOD ORDERABLES Final Result [facility] [address] [place] [address] * CBC Branch Off w/Diff (11/17/2024 2:58 PM CDT) WBC 7.1 3.5 - 10.5 K/uL 11/17/2024 3:35 PM CDT [facility] RBC 4.37 3.90 - 5.00 M/uL 11/17/2024 3:35 PM CDT [facility] Hemoglobin 13.6 12.0 - 15.5 g/dL 11/17/2024 3:35 PM CDT [facility] Hematocrit 42.1 35.0 - 44.0 % 11/17/2024 3:35 PM CDT [facility] Platelets 231 150 - 450 K/uL 11/17/2024 3:35 PM CDT [facility] MCV 96.3 81.6 - 98.3 fL 11/17/2024 3:35 PM CDT [facility] MCH 31.1 26.0 - 32.0 pg 11/17/2024 3:35 PM CDT [facility] MCHC 32.3 32.0 - 36.0 g/dL 11/17/2024 3:35 PM CDT [facility] RDW 12.9 11.9 - 15.5 % 11/17/2024 3:35 PM CDT [facility] Lymphocytes % 21.8 % 11/17/2024 3:35 PM CDT [facility] Mid-size Cells 17.1 % 11/17/2024 3:35 PM CDT [facility] Granulocytes/Edward trophils 61.1 % 11/17/2024 3:35 PM CDT [facility] Lymphocytes Absolute 1.5 0.9 - 2.9 K/uL 11/17/2024 3:35 PM CDT [facility] MIDS Absolute 1.2 0.4 - 1.5 K/uL 11/17/2024 3:35 PM CDT [facility] Granulocytes/Edward trophils Absolute 4.4 1.7 - 7.0 K/uL 11/17/2024 3:35 PM CDT [facility] 11/17/2024 2:58 PM CDT 11/17/2024 2:58 PM CDT us Levi North MD LAB BLOOD ORDERABLES Final Result Performing Organization Address [facility] de Phone Number [facility] [address] [place] [address] * Vitamin D, Total ([facility] preferred) (11/17/2024 2:58 PM CDT) Vitamin D, Total 46.5 ng/mL 11/19/19 1:29 PM CDT [facility] Comment: Deficient <20 Insufficient 20-<30 Sufficient 30-100 Vitamin D2/D3 fractionation is recommended at the discretion of the clinician if Total Vitamin D is within deficient or insufficient range. Blood (Blood, Venous) 11/17/2024 2:58 PM CDT 11/18/2024 12:27 PM CDT Levi North MD LAB BLOOD ORDERABLES Final Result Performing Organization Address [facility] de Phone Number [facility] [address] [place] [phone] * TSH (11/17/2024 2:58 PM CDT) TSH, Sensitive 2.12 0.46 - 4.68 mIU/L 11/18/2024 2:07 PM CDT [facility] Comment: The results from this or any other diagnostic test should be used and interpreted only in the context of the overall clinical picture. Biotin levels in serum remain elevated for up to 24 hours after oral or intravenous biotin administration and may interfere with this assay to produce unreliable results. Heterophilic antibodies in serum or plasma samples may cause interference in immunoassays. Exposure to animal antigens, either in the environment or as part of treatment or imaging procedures, may have circulating anti-animal antibodies present. These antibodies may interfere with the assay reagents to produce unreliable results. Results which are inconsistent with clinical observations indicate the need for additional testing. Blood (Blood, Venous) 11/17/2024 2:58 PM CDT 11/18/2024 12:50 PM CDT Levi North MD LAB BLOOD ORDERABLES Final Result Performing Organization Address [facility] de Phone Number [facility] [address] [place] [address] * (ABNORMAL) Hemoglobin A1c (11/17/2024 2:58 PM CDT) Pathologist [facility] Hemoglobin A1C 7.8(H) 4.0 - 5.6 % A1C 11/18/2024 1:10 PM CDT [facility] Comment: Reference Range 4.0-5.6% is for non- adults >=18 yrs <5.6% Non-Diabetic 5.7-6.4% Increased risk of Diabetes >=6.5% Indicative of Diabetes <7.0% ADA goal for glycemic control Methodology may not detect all hemoglobin variants which can affect A1c results. Method certified by National Glycohemoglobin Standardization Program. Blood (Blood, Venous) 11/17/2024 2:58 PM CDT 11/18/2024 12:27 PM CDT us Levi North MD LAB BLOOD ORDERABLES Final Result Performing Organization Address [facility] de Phone Number [facility] [address] [place] [phone] * Covid-19, Rogers ID Now, PCR (11/17/2024 2:41 PM CDT) Pathologist [facility] Covid Source Nasal 11/17/2024 3:34 PM CDT [facility] Covid-19, ID Now PCR NEGATIVE Negative 11/17/2024 3:34 PM CDT [facility] Comment: Negative results should be treated as presumptive and, if inconsistent with clinical signs and symptoms or necessary for patient management, should be tested with an alternative molecular assay. Testing was performed using the Rogers ID NOW COVID-19 2.0 assay. Swab (Nasal) 11/17/2024 2:4 1 PM CDT 11/17/2024 3:33 PM CDT us Levi North MD LAB MOLECULAR DIAGNOSTICS O RDERABLES Final Result Performing Organization Address [facility]/ZIP Co de Phone Number [facility] [address] [place] [address] * Flu, Rogers ID Now, PCR (11/17/2024 2:41 PM CDT) Flu Source Nasal 11/17/2024 3:34 PM CDT [facility] Influenza A, PCR NEGATIVE Negative 11/17/2024 3:34 PM CDT [facility] Influenza B, PCR NEGATIVE Negative 11/17/2024 3:34 PM CDT [facility] Flu Interp see below 11/17/2024 3:34 PM CDT [facility] Comment: Flu A Viral RNA Not Detected; Flu B Viral RNA Not Detected. Testing was performed using the Rogers ID NOW A & B 2 Assay. 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, without long-term current use of insulin (HCC) Stage 3a chronic kidney disease (HCC) Coronary artery disease involving umatilla tribe coronary artery of umatilla tribe heart without angina pectoris Moderate mixed hyperlipidemia not requiring statin therapy Heart failure with preserved ejection fraction, unspecified HF chronicity (HCC) Gastroesophageal reflux disease, unspecified whether esophagitis present Cluster B personality disorder (HCC) Unspecified personality disorder Moderate episode of recurrent major depressive disorder (HCC) PTSD (post-traumatic stress disorder) Posttraumatic stress disorder Chronic obstructive pulmonary disease, unspecified COPD type (HCC) Screen for colon cancer Special screening for malignant neoplasms, colon Screening for osteoporosis Special screening for osteoporosis Encounter for screening mammogram for malignant neoplasm of breast Periodontal abscess Aggressive periodontitis, localized documented in this encounter Additional Health Concerns Infection Onset Date Last Indicated Resolved Time COVID-19 Rule Out 11/17/2024 11/17/2024 11/17/2024 3:34 PM CDT documented as of this encounter Care Teams Marketing Operations Assistant Relationship Specialty Start Date End Date Levi North MD [address] [place] [id number] PCP - General Family Medicine 10/08/24 Dr Esposito Consulting Physician 01/26/20 [facility] Consulting Physician Neurology 01/26/20 documented as of this encounter
--- OUTSIDE RECORDS SUMMARY | 2024-11-23 13:02 | XMS_ITS | Continuity of Care Document ---
Author Name [facility] Organization [facility] Care Team Providers Care Instructional Technology Coordinator Name Role Phone [facility] Unavailable Unavailable Allergies, Adverse Reactions, Alerts Combined list of allergies from Department of Defense and Veterans Affairs facilities. It does not include entries that were removed or entered in error. Substance Category Reaction Severity Reaction type Status Date Reported Comments Source PEN[place]IN Propensity to adverse reactions to drug (finding) active 12/26/1995 [facility] PERCOCET Propensity to adverse reactions to drug (finding) active 05/01/1996 [facility] SULFA DRUGS Propensity to adverse reactions to drug (finding) active 04/20/1999 [facility] Immunizations Combined list of available immunizations from the Department of Defense and Veterans Affairs facilities. Immunization Series Date Given Administered By Site Reaction Lot Number CVX Code Drug Search Director Status Comments Source INFLUENZA (HISTORICAL) 1997 YVONNE KHAN 87 complet ed [facility]
--- OUTSIDE RECORDS SUMMARY | 2024-11-23 13:03 | XMS_ITS | Continuity of Care Document ---
Author Organization [facility] Address [address] [place] [address] Phone Care Team Providers Care Director Cardiovascular Name Role Phone Person YEAST MAKER, Randy Unavailable Unavailable Allergies, Adverse Reactions, Alerts Substance Reaction Status Criticality QUETIAPINE FUMARATE Difficulty breathing Active No Information fentanyl Slow respiration Active No Informat ion rizatriptan Active No Information niacin Active No Information latex Active No Information codeine Active No Information atorvastatin Active No Information gabapentin Active No Information trazodone Active No Information sumatriptan Active No Information Medications Medication Instructions Dosage Effective Dates (start - stop) Status Comments TIZANIDINE HCL 4MG TABS TAKE ONE TO TWO TABLETS BY MOUTH AT BEDTIME NEEDED - Active PERCOCET (unknown strength) take 1 tablet by oral route every 6 hours as needed Not Available - Active OXYGEN LITER Inhalation INHALER - Active SYMBICORT (unknown strength) inhale 2 puff by inhalation route 2 times every day in the morning and evening Not Available - Active ezetimibe 10 mg tablet take 1 tablet by oral route every day 10 MG - Active Fifty50 Test Strip Fifty50 Glucose Meter 2.0 take 1 times each day - Active furosemide 20 mg tablet take 2 tablet by oral route every day 40 MG - Active GLUTOL (unknown strength) [employer] Test Strips for glucose blood, take 1 time each day Not Available - Active lancets - Active MAGONATE (unknown strength) Not Available - Active Toprol XL 50 mg tablet,extended release take 1 tablet by oral route every day 50 MG - Active simvastatin 10 mg tablet take 1 tablet by oral route every day in the evening 10 MG - Active rosuvastatin 5 mg tablet take 1 tablet by oral route every day 5 MG - Active ondansetron HCl 4 mg tablet take 1 tablet by oral route 2 times every day 4 MG - Active Narcan 4 mg/actuation nasal spray spray 0.1 milliliter by intranasal route in 1 nostril may repeat dose every 2-3 minutes as needed alternating nostrils with each dose 4 MG - Active benzonatate 100 mg capsule take 1 capsule by oral route 3 times every day as needed for cough 100 MG - Active Advair Diskus 250 mcg-50 mcg/dose powder for inhalation inhale 1 puff by inhalation route 2 times every day in the morning and evening approximately 12 hours apart 1.00 puff - Active esomeprazole magnesium 40 mg capsule,delayed release take 1 capsule by oral route every day 40 MG - Active Tirosint 50 mcg capsule take 1 capsule by oral route every day 50 MCG - Active bisacodyl 10 mg rectal suppository insert 1 suppository by rectal route every day as needed for constipation 10 MG - Active ipratropium 0.5 mg-albuterol 3 mg (2.5 mg base)/3 mL nebulization soln inhale 3 milliliter by nebulization route 4 times every day 3.00 milliliter - Active isosorbide mononitrate ER 120 mg tablet,extended release 24 hr take 1 tablet by oral route every day in the morning 120 MG - Active venlafaxine ER 75 mg tablet,extended release 24 hr take 1 tablet by oral route every day in the morning at the same time each day with food 75 MG - Active mirtazapine 15 mg tablet take 1 tablet by oral route every day before bedtime 15 MG - Active amlodipine 5 mg tablet take 1 tablet by oral route every day 5 MG - Active nitroglycerin 0.[address] 1 tablet by sublingual route every 5 minutes as needed for chest pain. Do not exceed 3 doses in 15 minutes. 0.4 MG - Active Fish Oil 1,000 mg (120 mg-180 mg) capsule - Active DOK Plus 8.6 mg-50 mg tablet take 2 tablet by oral route 2 times every day 2 tablet - Active cyclobenzaprine 10 mg tablet take 1 tablet by oral route every day 10 MG - Active Citracal with Vitamin D Maximum 315 mg-250 unit tablet - Active aspirin 81 mg chewable tablet chew 1 tablet by oral route every day 81 MG - Active ascorbic acid (vitamin C) 500 mg capsule - Active Advair Diskus 250 mcg-50 mcg/dose powder for inhalation inhale 1 puff by inhalation route 2 times every day in the morning and evening approximately 12 hours apart 1.00 puff - Active buprenorphine HCl [address] 2 tablet by sublingual route in morning, 2 tablet in the afternoon and 2 tablets at bedtime, - No Longer Active chronic pain, tizanidine 4 mg tablet take 1 tablet by oral route every 6 - 8 hours as needed not to exceed 3 doses in 24 hours 4 MG - No Longer Active buprenorphine HCl [address] 2 tablet by sublingual route in morning, 2 tablet in the afternoon and 2 tablets at bedtime, - No Longer Active chronic pain, 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 Procedures Procedure Date Est Pt Eval Telehealth Est Pt Eval Moderate KETOROLAC TROMETHAMINE INJ THER/PROPH/DIAG INJ IA Toxicology Test Group B Est Pt Eval Telehealth Est Pt Eval Telehealth Est Pt Eval Telehealth Est Pt Eval Telehealth Est Pt Eval Telehealth Est Pt Eval Telehealth Est Pt Eval Moderate Toxicology Test Group B Est Pt Eval Telehealth Psychotherapy, 45 minutes with patient S Est Pt Eval Moderate KETOROLAC TROMETHAMINE INJ Therapeutic, prophylactic, or diagnostic injection Psychotherapy, 30 minutes with patient A Est Pt Eval Moderate Toxicology Test Group B Psychotherapy, 30 minutes with patient J Est Pt Eval Moderate Psychotherapy, 45 minutes with patient J un-14-2023 Est Pt Eval 25 Min Psychotherapy, 30 minutes with patient M Est Pt Eval 25 Min Toxicology Test Group B Psychotherapy, 30 minutes with patient A pr Est Pt Eval 25 Min Psychotherapy, 30 minutes with patient M Est Pt Eval 25 Min Inject, Spine, Cerv/Thor, Epi/subarc w/i mg Guid Inject, Spine, Cerv/Thor, Epi/subarc w/i mg Guid CC Control For Rem/Void Of Mutually Excl usive Proc No Charge Pt Seen-No Charge, Per Physician 2022 Est Pt Eval 25 Min Toxicology Test Group B Verified No Separate Anesthesia 023 Psychotherapy, 30 minutes with patient T elephone Only Est Pt Eval 25 Min Telehealth Psychotherapy, 30 minutes with patient D Est Pt Eval 25 Min Psychotherapy, 45 minutes with patient N KETOROLAC TROMETHAMINE INJ Therapeutic, prophylactic, or diagnostic injection Est Pt Eval 25 Min No Charge Toxicology Test Group B Pt Seen-No Charge, Per Physician 2021 Est Pt Eval 25 Min Psychotherapy, 30 minutes with patient O No Charge Psychotherapy, 30 minutes with patient T elephone Only No Charge Est Pt Eval 25 Min Psychotherapy, 45 minutes with patient A Est Pt Eval 25 Min Toxicology Test Group B Psychotherapy, 30 minutes with patient J Est Pt Eval 25 Min Inj Anes Agent; Stellate Gangl Fluoro Guidance - NonSpine Change Control Document Insufficiencies Est Pt Eval 25 Min Telehealth No Show Visit Fee No Show Visit Fee Est Pt Eval 25 Min Telehealth KETOROLAC TROMETHAMINE INJ Therapeutic, prophylactic, or diagnostic injection Est Pt Eval 25 Min Pt Seen-No Charge, Per Physician 2021 Toxicology Test Group B Suprascapular Block Fluoro Needle NonSpine Inj Anes Agent; Suprascapular Fluoro Guidance - NonSpine Change Control for Diagnosis(s) No Charge Psychotherapy, 30 minutes with patient A Est Pt Eval 25 Min Psychotherapy, 30 minutes with patient M Est Pt Eval 25 Min Telehealth 2 No Charge Est Pt Eval 25 Min Psychotherapy, 30 minutes with patient F No Charge Toxicology Test Group B Psychotherapy, 45 minutes with patient J No Charge Est Pt Eval 25 Min Telehealth Psychotherapy, 30 minutes with patient J No Charge Est Pt Eval 25 Min Psychotherapy, 30 minutes with patient D Psychotherapy, 30 minutes with patient D Psychotherapy, 45 minutes with patient N Psychotherapy, 30 minutes with patient N Est Pt Eval 25 Min Toxicology Test Group C Est Pt Eval 25 Min Telehealth Psychotherapy, 30 minutes with patient O Est Pt Eval 25 Min Psychiatric Diagnostic Evaluation No Show Visit Fee Est Pt Eval 25 Min Psychotherapy, 30 minutes with patient S No Charge Psychotherapy, 45 minutes with patient T elehealth No Charge Psychotherapy, 30 minutes with patient A Est Pt Eval 25 Min Toxicology Test Group C No Charge Therapeutic, prophylactic, or diagnostic injection KETOROLAC TROMETHAMINE INJ Est Pt Eval 25 Min Psychotherapy, 30 minutes with patient J Psychotherapy, 30 minutes with patient J No Charge KETOROLAC TROMETHAMINE INJ Therapeutic, prophylactic, or diagnostic injection Est Pt Eval 25 Min Psychotherapy, 30 minutes with patient M Est Pt Eval 25 Min Toxicology Test Group C No Charge Est Pt Eval 25 Min Psychotherapy, 30 minutes with patient A Est Pt Eval 25 Min Psychotherapy, 30 minutes with patient F Therapeutic Exercise Est Pt Eval 25 Min Inj Anes Facet Jt; Cerv/thor-1st Level F Inj Anes Facet Jt; Cerv/thor-2nd Level F Inj Anes Facet Jt; Cerv/thor-3rd Level F Moderate Sedation (older Than 5 Years) Change Control for Procedure(s): 2020 Inj Anes Facet Jt; Cerv/thor-1st Level F Inj Anes Facet Jt; Cerv/thor-3rd Level F Inj Anes Facet Jt; Cerv/thor-2nd Level F Bupivicaine 30ml Change Control for Diagnosis(s) 021 Change Control for Pharmaceuticals Neuromuscular Re-education Psychotherapy, 30 minutes with patient F Est Pt Eval 25 Min Toxicology Test Group C Psychotherapy, 30 minutes with patient F No Charge No Show Visit Fee No Show Visit Fee Est Pt Eval 25 Min Telehealth 0 Therapeutic Exercise Pt Seen-No Charge, Per Physician 2019 Est Pt Eval 15 Min Telehealth 0 Inj Anes Facet Jt; Cerv/thor-3rd Level N Inj Anes Facet Jt; Cerv/thor-2nd Level N Inj Anes Facet Jt; Cerv/thor-1st Level N Methylprednisolone Acetate-40 0 Change Control for Diagnosis(s) 020 Change Control for [employer] CC Control For Rem/Void Of Mutually Excl usive Proc Inj Anes Facet Jt; Cerv/thor-1st Level N Inj Anes Facet Jt; Cerv/thor-2nd Level N Inj Anes Facet Jt; Cerv/thor-3rd Level N Psychotherapy, 30 minutes with patient N Therapeutic Exercise Est Pt Eval 25 Min Toxicology Test Group C Psychotherapy, 30 minutes with patient O Therapeutic Exercise Est Pt Eval 25 Min Psychotherapy, 30 minutes with patient S Therapeutic Exercise Est Pt Eval 25 Min Toxicology Test Group C Psychotherapy, 30 minutes with patient A Est Pt Eval 25 Min Therapeutic Exercise Toxicology Test Group C Psychotherapy, 30 minutes with patient J Est Pt Eval 25 Min Therapeutic Exercise Est Pt Eval 25 Min Neuromuscular Re-education Psychotherapy, 30 minutes with patient J Est Pt Eval 15 Min Telehealth 0 Est Pt Eval 25 Min Telehealth 0 Psychotherapy, 30 minutes with patient A Therapeutic Exercise Est Pt Eval 25 Min Telehealth 0 Therapeutic Exercise Est Pt Eval 25 Min Telehealth 0 Psychotherapy, 30 minutes with patient M Est Pt Eval 15 Min Therapeutic Exercise Self-care /home management training Est Pt Eval 25 Min Toxicology Test Group C Therapeutic Exercise Psychotherapy, 30 minutes with patient J Est Pt Eval 25 Min No Charge Est Pt Eval 25 Min Est Pt Eval 25 Min No Show Visit Fee Psychotherapy, 30 minutes with patient N Est Pt Eval 25 Min Est Pt Eval 25 Min Therapeutic Exercise PT Eval - Moderate Complexity 9 New Pt Eval 45 Min Advance Directives Directive Yes / No Effective Date File Name Intubation Not Answered N/A N/A Antibiotics Not Answered N/A N/A IV Fluid Support Not Answered N/A N/A Tube Feed Not Answered N/A N/A Other Directive No N/A N/A WARNING:The information contained in this section is historical and is provided for information only and does not constitute a legal document or any assurance that the information is still accurate. Please verify the information with the kaur of the legal document before using it for clinical purposes. Encounters Encounter Description Practice Location Reason(s) For Visit Diagnoses Date Provider Providers Copied on Encounter Est Pt Eval Telehealth SHARAD Gonsalves, [address], [place], [place], [id number], [place] tel:[phone] [facility] neck pain (chief complaint) lower back pain (chief complaint) Chief Complaint 3 (chief complaint) Complex regional pain syndrome 2 of rt upper limbBody mass index (BMI) 27.0-27.9, adultRadiculopathy , cervical regionChronic pain syndrome 4 Person Randy. [address] [place] [address], [place], [id number], [place]. tel:[phone] Referring Provider: Kristen Godoy, [address] [place], [address]. tel:[phone] Est Pt Eval Moderate [facility] [address], [place], [id number], [place] tel:[phone] [facility] lower back pain (chief complaint) Complex regional pain syndrome 2 of rt upper limbBody mass index (BMI) 27.0-27.9, adultElevated blood-pressure reading, w/o diagnosis of htn 4 Person Randy. [address] [place] [address], [place], [address], [place]. tel:[phone] Referring Provider: Kristen Godoy, [address] [place], [address]. tel:[phone] [facility], [address], [id number], [place] tel:[phone] [facility] No Information 4 Person Randy. [address] [place] [address], [place], [address], [place]. tel:[phone] Referring Provider: Kristen Godoy, [address] [place], [address]. tel:[phone] Est Pt Eval Telehealth [facility], [address], [place], [id number], [place] tel:[phone] [facility] neck pain (chief complaint) lower back pain (chief complaint) shoulder pain (chief complaint) Complex regional pain syndrome 2 of rt upper limbBody mass index (BMI) 28.0-28.9, adult 4 Naylor Enriqueta. [address] [place], [place], [address], [place]. tel:[phone] Referring Provider: Kristen Godoy, [address] [place], [address]. tel:[phone] Est Pt Eval Telehealth [facility], [address], [place], [id number], [place] tel:[phone] [facility] neck pain (chief complaint) Body mass index (BMI) 28.0-28.9, adultComplex regional pain syndrome 2 of rt upper limbRadiculopathy, cervical region 4 Naylor Enriqueta. [address], [address], [place]. tel:[phone] Referring Provider: Kristen Godoy, [address] [place], [address]. tel:[phone] Est Pt Eval [facility], [address], [place], [id number], [place] tel:[phone] [facility] neck pain (chief complaint) back pain (chief complaint) Body mass index (BMI) 28.0-28.9, adultComplex regional pain syndrome 2 of rt upper limb Oct- 4 Naylor Enriqueta. [address] [place], [place], [address], [place]. tel:[phone] Referring Provider: Kristen Godoy, [address] [place], [address]. tel:[phone] Est Pt Eval [facility], [address], [place], [place], [address], [place] tel:[phone] [facility] back pain (chief complaint) neck pain (chief complaint) Complex regional pain syndrome 2 of rt upper limbPain in right shoulderBody mass index (BMI) 28.0-28.9, adult 4 Nabila Kelly. [address] [place] [address], [address], [place]. tel:[phone] Referring Provider: Kristen Godoy, [address] [place], [address]. tel:[phone] Est [facility], [address], [place], [place], [id number], [place] tel:[phone] [facility] Neck Pain (chief complaint) back pain (chief complaint) joint pain (chief complaint) Complex regional pain syndrome 2 of rt upper limbPain in right shoulderPain in left hipBody mass index (BMI) 28.0-28.9, adult 4 Jose Luis Carrillo. [address], [place], [address], [place]. tel:[phone] Referring Provider: Kristen Godoy, [address] [place], [address]. tel:[phone] Est Pt Eval Telehealth [facility], [address], [place], [place], [id number], [place] tel:[phone] [facility] back pain (chief complaint) Body mass index (BMI) 28.0-28.9, adultComplex regional pain syndrome 2 of rt upper limbPain in right shoulderPain in left hip 3 Melllorimorichar Rezan. [address], [place], [address], [place]. tel:[phone] Referring Provider: Kristen Godoy, [address] [facility] [place], [address]. tel:[phone] Est Pt Eval [facility], [address], [place], [place], [address], [place] tel:[phone] [facility] back pain (chief complaint) Complex regional pain syndrome 2 of rt upper limbPain in right shoulderPain in left hipBody mass index (BMI) 28.0-28.9, adult 3 Mellesmoen Lorena. [address], [place], [address], [place]. tel:[phone] Referring Provider: Kristen Godoy, [address] [facility] [place], [address]. tel:[phone] [facility], [address], [place], [place], [id number], [place] tel:[phone] [facility] No Information 3 Mellesmoen Lorena. [address], [place], [address], [place]. tel:[phone] Referring Provider: Kristen Godoy, [address] [facility] [place], [address]. tel:[phone] Est Pt Eval [facility], [address], [place], [place], [address], [place] tel:[phone] [facility] back pain (chief complaint) Body mass index (BMI) 29.0-29.9, adultComplex regional pain syndrome 2 of rt upper limbPain in right shoulder 3 Mellesmoen Lorena. [address], [place], [address], [place]. tel:[phone] Referring Provider: Kristen Godoy, [address] [facility] [place], [address]. tel:[phone] Psychotherap y, 45 minutes with patient [facility], [address], [place], [place], [address], [place] tel:[phone] [facility] Pain disorder with related psychological factorsMajor depressive disorder, recurrent, moderate Apr- 3 Gottwalt Soheila. [address] [place] [address], [place], [address], [place]. tel:[phone] Referring Provider: Kristen Godoy, [address] [place], [place], [facility]. tel:[phone] Est Pt Eval [facility], [address], [place], [place], [address], [place] tel:[phone] [facility] back pain (chief complaint) Complex regional pain syndrome 2 of rt upper limbBody mass index (BMI) 29.0-29.9, adult Sep- 3 Jose Luis Carrillo. [address] [place] [address], [place], [address], [place]. tel:[phone] Referring Provider: Kristen Godoy, [address] [facility] [place], [address]. tel:[phone] Psychotherap y, 30 minutes with patient GREG GonsalvesC, [address], [place], [place], [address], [place] tel:[phone] [facility] Pain disorder with related psychological factorsMajor depressive disorder, recurrent, moderateOpioid use, unspecified, uncomplicated Mar- 3 Gottwalt Soheila. [address], [place], [place], [address], [place]. tel:[phone] Referring Provider: Kristen Godoy, [address] [facility] [place], [address]. tel:[phone] Est Pt Eval [facility], [address], [place], [place], [address], [place] tel:[phone] [facility] right neck pain (chief complaint) Body mass index (BMI) 29.0-29.9, adultComplex regional pain syndrome 2 of rt upper limb 3 Mellesmoen Lorena. [address], [place], [address], [place]. tel:[phone] Referring Provider: Kristen Godoy, [address] [place], [address]. tel:[phone] [facility], [address], [place], [place], [address], [place] tel:[phone] [facility] No Information 3 Melllorimorichar Rezan. [address], [place], [address], [place]. tel:[phone] Referring Provider: Kristen Godoy, [address] [facility] [place], [address]. tel:[phone] Psychotherap y, 30 minutes with patient [facility], [address], [place], [place], [address], [place] tel:[phone] [facility] Pain disorder with related psychological factorsMajor depressive disorder, recurrent, moderateOpioid use, unspecified, uncomplicated 3 Gottwalt Soheila. [address], [place], [place], [address], [place]. tel:[phone] Referring Provider: Kristen Godoy, [address] [place], [address]. tel:[phone] Est Pt Eval [facility], [address], [place], [place], [address], [place] tel:[phone] [facility] right neck pain (chief complaint) Complex regional pain syndrome 2 of rt upper limbBody mass index (BMI) 29.0-29.9, adult 3 Jose Luis Rezan. [address], [place], [address], [place]. tel:[phone] Referring Provider: Kristen Godoy, [address] [place], [address]. tel:[phone] Psychotherap y, [address] [facility], [address], [place], [place], [address], [place] tel:[phone] [facility] Pain disorder with related psychological factorsMajor depressive disorder, recurrent, moderateOpioid use, unspecified, uncomplicated 3 Kian Parnell. [address] [place] [address], [address], [place]. tel:[phone] Referring Provider: Kristen Godoy, [address] [place], [address]. tel:[phone] Est Pt Eval [address] Min [facility], [address], [place], [place], [address], [place] tel:[phone] [facility] right neck pain (chief complaint) Complex regional pain syndrome 2 of rt upper limbBody mass index (BMI) 31.0-31.9, adult 3 Melllorimoen Lorena. [address], [place], [address], [place]. tel:[phone] Referring Provider: Kristen Godoy, [address] [place], [address]. tel:[phone] Psychotherap y, 30 minutes with patient GREG Gonsalves, [address], [place], [place], [address], [place] tel:[phone] [facility] Pain disorder with related psychological factorsMajor depressive disorder, recurrent, moderateOpioid use, unspecified, uncomplicated 3 Aris Allen. [address] , [facility] [address], [place], [address], [place]. tel:[phone] Referring Provider: Kristen Godoy, [address] [place], [address]. tel:[phone] Est Pt Eval [address] [facility], [address], [place], [place], [address], [place] tel:[phone] [facility] back pain (chief complaint) Complex regional pain syndrome 2 of rt upper limbBody mass index (BMI) 31.0-31.9, adult 3 Jose Luis Carrillo. [address], [place], [address], [place]. tel:[phone] Referring Provider: Kristen Godoy, [address] [place], [address]. tel:[phone] [facility], [address], [place], [place], [address], [place] tel:[phone] [facility] No Information 3 Jose Luis Carrillo. [address], [place], [address], [place]. tel:[phone] Referring Provider: Kristen Godoy, [address] [facility] [place], [address]. tel:[phone] Psychotherap y, 30 minutes with patient [facility], [address], [place], [place], [address], [place] tel:[phone] [facility] Pain disorder with related psychological factorsMajor depressive disorder, recurrent, moderateOpioid use, unspecified, uncomplicated 3 Aris Allen. [address], [place] [address], [address], [place]. tel:[phone] Referring Provider: Kristen Godoy, [address] [facility] [place], [address]. tel:[phone] Est Pt Eval 25 Min [facility], [address], [place], [place], [address], [place] tel:[phone] [facility] back pain (chief complaint) Complex regional pain syndrome 2 of rt upper limb 3 Jose Luis Carrillo. [address], [place], [address], [place]. tel:[phone] Referring Provider: Kristen Godoy, [address] [facility] [place], [address]. tel:[phone] Psychotherap y, 30 minutes with patient [facility], [address], [place], [place], [address], [place] tel:[phone] [facility] Pain disorder with related psychological factorsMajor depressive disorder, recurrent, moderateOpioid use, unspecified, uncomplicated Oct- 3 Aris Allen. [address], [place], [place], [address], [place]. tel:[phone] Referring Provider: Kristen Godoy, [address] [facility] [place], [address]. tel:[phone] Est Pt Eval 25 Min [facility], [facility], [address], [place], [place], [address], [place] tel:[phone] [facility] back pain (chief complaint) Complex regional pain syndrome 2 of rt upper limbBody mass index (BMI) 31.0-31.9, adult Mar- 3 Jose Luis Carrillo. [address], [address], [place], [address], [place]. tel:[phone] Referring Provider: Kristen Godoy, [address] [place], [address]. tel:[phone] [facility], [address], [place], [place], [address], [place] tel:[phone] [facility] No Information 3 Alexis Mayer. [address], [address], [place]. tel:[phone] Referring Provider: Moreno Bruce, [address] [place] [address], [place], [address]. tel:[phone] [facility], [address], [address], [place], [address], [place] tel:[phone] [facility] right neck pain (chief complaint) Radiculopathy, cervical regionPostlaminect kvng syndrome, not elsewhere classifiedRadiculo tripp, cervical regionPostlaminect kvng syndrome, not elsewhere classified 3 [facility]. [address], [place], [place], [address], [place]. tel:[phone] Referring Provider: Moreno Bruce, [address], [place], [address]. tel:[phone] [facility], [address], [place], [place], [address], [place] tel:[phone] [facility] No Information 3 Isha Masterson. [address], [place], [address], [place]. tel:[phone] Referring Provider: Kristen Godoy, [address] [place], [address]. tel:[phone] [facility], [address], [place], [place], [address], [place] tel:[phone] [facility] Pain disorder with related psychological factorsMajor depressive disorder, recurrent, moderateOpioid use, unspecified, uncomplicated 3 Aris Allen. [address], [address], [address], [place]. tel:[phone] Referring Provider: Kristen Godoy, [address] [place], [address]. tel:[phone] Est Pt Eval [address] [facility], [address], [place], [place], [address], [place] tel:[phone] [facility] right neck pain (chief complaint) back pain (chief complaint) left foot pain (chief complaint) Complex regional pain syndrome 2 of rt upper limbBody mass index (BMI) 29.0-29.9, adult 3 Jose Luis Carrillo. [address], [address], [place], [address], [place]. tel:[phone] Referring Provider: Kristen Godoy, [address] [facility] [place], [address]. tel:[phone] SHARAD Gonsalves, [address], [id number], [place] tel:[phone] [facility] No Information 3 Alexis Mayer. [address] [address], [address], [place]. tel:[phone] Referring Provider: Kristen Godoy, [address] [place], [place], [facility]. tel:[phone] GREG Gonsal[facility], [address], [address], [place] tel:[phone] [facility] No Information 3 Jose Luis Carrillo. [address] , [facility] [address], [place], [address], [place]. tel:[phone] Referring Provider: Kristen Godoy, [address] [place], [facility]. tel:[phone] Psychotherap y, 30 minutes with patient Telephone Only SHARAD Gonsalves, [address], [id number], [place] tel:[phone] [facility] Pain disorder with related psychological factorsMajor depressive disorder, recurrent, moderateOpioid use, unspecified, uncomplicated Aug- 3 Aris Allen. [address], [place] [address], [address], [place]. tel:[phone] Referring Provider: Kristen Godoy, [address] [place], [address]. tel:[phone] Est Pt Eval 25 Min Telehealth SHARAD Gonsalves, [address], [place], [place], [address], [place] tel:[phone] [facility] back pain (chief complaint) Complex regional pain syndrome 2 of rt upper limbBody mass index (BMI) 30.0-30.9, adult 3 Melllorimoen Lorena. [address], [address], [place], [address], [place]. tel:[phone] Referring Provider: Kristen Godoy, [address] [place], [address]. tel:[phone] Psychotherap y, 30 minutes with patient GREG Gonsalves, [address] [facility], [place], [place], [address], [place] tel:[phone] [facility] Pain disorder with related psychological factorsMajor depressive disorder, recurrent, moderateOpioid use, unspecified, uncomplicated 2 Aris Allen. [address] [facility], [address], [address], [place]. tel:[phone] Referring Provider: Kristen Godoy, [address] [place], [address]. tel:[phone] Est Pt Eval 25 Min GREG Gonsalves, [address] [facility] [address], [place], [place], [address], [place] tel:[phone] [facility] back pain (chief complaint) Complex regional pain syndrome 2 of rt upper limbBody mass index (BMI) 31.0-31.9, adult 2 Kathyamoen Lorena. [address] , [address], [place], [address], [place]. tel:[phone] Referring Provider: Kristen Godoy, [address] [place], [address]. tel:[phone] Psychotherap y, 45 minutes with patient GREG Gonsalves, [address], [place], [place], [address], [place] tel:[phone] [facility] Pain disorder with related psychological factorsMajor depressive disorder, recurrent, moderateOpioid use, unspecified, uncomplicatedCausa lgia of right upper limb 2 Aris Allen. [address], [place] [address], [address], [place]. tel:[phone] Referring Provider: Kristen Godoy, [address] [place], [address]. tel:[phone] Est Pt Eval 25 Min GREG [facility], [address], [place], [place], [address], [place] tel:[phone] [facility] back pain (chief complaint) Complex regional pain syndrome 2 of rt upper limbBody mass index (BMI) 33.0-33.9, adult 2 Jose Luis Carrillo. [address] , [address], [place], [address], [place]. tel:[phone] Referring Provider: Kristen Godoy, [address] [place], [address]. tel:[phone] [facility], [address], [place], [place], [address], [place] tel:[phone] [facility] No Information 2 Isha Masterson. [address] [address], [place], [address], [place]. tel:[phone] Referring Provider: Kristen Godoy, [address] [facility] [place], [address]. tel:[phone] [facility], [address], [place], [place], [address], [place] tel:[phone] [facility] No Information 2 Jose uLis Carrillo. [address], [place], [address], [place]. tel:[phone] Referring Provider: Kristen Godoy, [address] [facility] [place], [address]. tel:[phone] [facility], [address] [facility] [address], [place], [address], [place] tel:[phone] [facility] Pain disorder with related psychological factorsMajor depressive disorder, recurrent, moderateOpioid use, unspecified, uncomplicated 2 Aris Allen. [address] , [facility] [address], [address], [place]. tel:[phone] Referring Provider: Kristen Godoy, [address] [place], [address]. tel:[phone] [facility], [address] [facility] [address], [place], [address], [place] tel:[phone] [facility] No Information 2 Isha Masterson. [address] [place] [address], [place], [address], [place]. tel:[phone] Referring Provider: Kristen Godoy, [address] [place], [address]. tel:[phone] Est Pt Eval [address] [facility], [address] [facility] [address], [place], [address], [place] tel:[phone] [facility] back pain (chief complaint) Body mass index (BMI) 31.0-31.9, adultComplex regional pain syndrome 2 of rt upper limbCervicalgia 2 Jose Luis Rezan. [address], [address], [place], [address], [place]. tel:[phone] Referring Provider: Kristen Godoy, [address] [facility] [place], [address]. tel:[phone] Psychotherap y, 30 minutes with patient SHARAD Gonsalves, [address], [place], [place], [address], [place] tel:[phone] [facility] Pain disorder with related psychological factorsMajor depressive disorder, recurrent, moderateOpioid use, unspecified, uncomplicated 2 Aris Allen. [address], [place] [address], [address], [place]. tel:[phone] Referring Provider: Kristen Godoy, [address] [facility] [place], [address]. tel:[phone] Psychotherap y, 30 minutes with patient Telephone Only [facility], [address], [place], [place], [address], [place] tel:[phone] [facility] Pain disorder with related psychological factorsMajor depressive disorder, recurrent, moderateOpioid use, unspecified, uncomplicated Sep-2 2 Kian Benavidesta. [address], [place], [place], [address], [place]. tel:[phone] Referring Provider: Kristen Godoy, [address] [facility] [place], [address]. tel:[phone] [facility], [address], [place], [place], [address], [place] tel:[phone] [facility] No Information Sep-2 2 Pavithra Huertas. [address] [facility] [address], [place], [address], [place]. tel:[phone] Referring Provider: Kristen Godoy, [address] [place], [address]. tel:[phone] Est Pt Eval 25 Min [facility], [address] [facility] [address], [place], [place], [address], [place] tel:[phone] [facility] back pain (chief complaint) Body mass index (BMI) 31.0-31.9, adultComplex regional pain syndrome 2 of rt upper limbPain in unspecified shoulder Sep- 2 Radha Cobian. [address] [facility] [address], [place], [address], [place]. tel:[phone] Referring Provider: Kristen Godoy, [address] [place], [address]. tel:[phone] Psychotherap y, 45 minutes with patient GREG Gonsalves, [address] [facility] [address], [place], [place], [address], [place] tel:[phone] [facility] Pain disorder with related psychological factorsMajor depressive disorder, recurrent, moderateOpioid use, unspecified, uncomplicated 2 Gottwalt Soheila. [address] , [facility] [address], [place], [address], [place]. tel:[phone] Referring Provider: Kristen Godoy, [address] [place], [address]. tel:[phone] Est Pt Eval 25 Min [facility], [address] [facility] [address], [place], [place], [address], [place] tel:[phone] [facility] back pain (chief complaint) Complex regional pain syndrome 2 of rt upper limbOpioid use, unspecified, uncomplicatedMajor depressive disorder, recurrent, moderatePain disorder with related psychological factorsBody mass index (BMI) 31.0-31.9, adult 2 Jose Luis Carrillo. [address], [place], [address], [place]. tel:[phone] Referring Provider: Kristen Godoy, [address] [facility] [place], [facility]. tel:[phone] GREG Gonsalves, [address], [place], [place], [address], [place] tel:[phone] [facility] No Information 2 Jose Luis Willislyn. [address], [place], [address], [place]. tel:[phone] Referring Provider: Kristen Godoy, [address] [place], [address]. tel:[phone] Psychotherap y, 30 minutes with patient SHARAD Gonsalves, [address], [place], [place], [address], [place] tel:[phone] [facility] Pain disorder with related psychological factorsMajor depressive disorder, recurrent, moderateOpioid use, unspecified, uncomplicated Feb- 2 Cameron Kolb. [address], [place], [address], [place]. tel:[phone] Referring Provider: Kristen Godoy, [address] [facility] [place], [facility]. tel:[phone] Est Pt Eval 25 Min [facility], [address], [place], [place], [address], [place] tel:[phone] [facility] neck, shoulder, low back, ribs (chief complaint) Body mass index (BMI) 32.0-32.9, adultComplex regional pain syndrome 2 of rt upper limbPain in right shoulder 2 Radha Cobian. [address], [place], [address], [place]. tel:[phone] Referring Provider: Kristen Godoy, [address] [place], [address]. tel:[phone] [facility], [address], [address], [place], [address], [place] tel:[phone] [facility] bilateral shoulder pain (chief complaint) Complex regional pain syndrome 2 of right upper limbNeuralgia and neuritis, unspecifiedCausalg ia of right upper limbNeuralgia and neuritis, unspecified 2 [facility]. [address] [facility] [address], [place], [address], [place]. tel:[phone] Referring Provider: Alie Ng , [address] [facility] [address], [place], [address]. tel:[phone] Est Pt Eval 25 Min Telehealth [facility], [facility], [address] [facility] [address], [place], [address], [place] tel:[phone] [facility] back pain (chief complaint) Body mass index (BMI) 32.0-32.9, adultRadiculopathy , cervical regionLow back pain, unspecifiedComplex regional pain syndrome 2 of right upper limb 2 Sumit Tidwell. [address] [facility] [address], [place], [address], [place]. tel:[phone] Referring Provider: Kristen Godoy, [address] [place], [address]. tel:[phone] [facility], [address], [place], [place], [address], [place] tel:[phone] [facility] No Information 2 Sumit Knapp. [address], [place], [place], [address], [place]. tel:[phone] Referring Provider: Kristen Godoy, [address] [place], [address]. tel:[phone] [facility] [place], [address], [place], [address], [place] tel:[phone] [facility] No Information 2 Sumit Knapp. [address], [place], [place], [address], [place]. tel:[phone] Referring Provider: Ra Tellez, [address], [place], [address] . tel:[phone] Est Pt Eval 25 Min Telehealth [facility], [address], [place], [place], [address], [place] tel:[phone] [facility] neck, shoulder, low back (chief complaint) Body mass index (BMI) 32.0-32.9, adultSpondylosis w/o myelopathy or radiculopathy, cervical regionComplex regional pain syndrome 2 of right upper limbPain in right shoulderLow back pain, unspecified 2 Moualee Lauryn. [address], [place], [address], [place]. tel:[phone] Referring Provider: Kristen Godoy, [address] [place], [address]. tel:[phone] Est Pt Eval 25 Min [facility], [address], [place], [place], [address], [place] tel:[phone] [facility] neck, shoulders, low back (chief complaint) Spondylosis w/o myelopathy or radiculopathy, cervical regionComplex regional pain syndrome 2 of right upper limbPain in right shoulderLow back pain, unspecifiedBody mass index (BMI) 32.0-32.9, adult 2 Moualee Lauryn. [address], [place], [address], [place]. tel:[phone] Referring Provider: Kristen Godoy, [address] [facility], [place], [address]. tel:[phone] SHARAD Gonsal[facility], [address], [place], [place], [address], [place] tel:[phone] [facility] Pain disorder with related psychological factorsMajor depressive disorder, recurrent, moderateOpioid use, unspecified, uncomplicated 2 Barnes Kennedi. [address], [place], [address], [place]. tel:[phone] Referring Provider: Kristen Godoy, [address] [place], [address]. tel:[phone] SHARAD Gonsalves, [address], [place], [place], [address], [place] tel:[phone] [facility] No Information 2 Moualee Lauryn. [address], [place], [address], [place]. tel:[phone] Referring Provider: Kristen Godoy, [address] [place], [address]. tel:[phone] SH[facility], [address], [place], [place], [address], [place] tel:[phone] [facility] No Information 2 Bryan Eganhen. [address], [place], [place], [address], [place]. tel:[phone] Referring Provider: Vikas Adams, [address], [place], [address] . tel:[phone] [facility], [address], [place], [address], [place] tel:[phone] [facility] right neck pain (chief complaint) Pain in right shoulderNeuralgia and neuritis, unspecifiedPain in right shoulderNeuralgia and neuritis, unspecified 2 [facility]. [address], [place], [place], [address], [place]. tel:[phone] Referring Provider: Moreno Bruce, [address], [place], [address]. tel:[phone] [facility], [address], [place], [place], [address], [place] tel:[phone] [facility] No Information 2 Pavithra Huertas. [address] [facility] [address], [place], [place], [address], [place]. tel:[phone] Referring Provider: Kristen Kwong MD R, [address] [place], [address]. tel:[phone] Psychotherap y, [address] [facility], [address] [facility] [address], [place], [place], [address], [place] tel:[phone] [facility] Pain disorder with related psychological factorsMajor depressive disorder, recurrent, moderateOpioid use, unspecified, uncomplicated Nov-0 2 Cameron Kolb. [address], [place], [address], [place]. tel:[phone] Referring Provider: Kristen Godoy, [address] [place], [address]. tel:[phone] Est Pt Eval [address] [facility], [address], [place], [place], [address], [place] tel:[phone] [facility] back pain (chief complaint) Body mass index (BMI) 31.0-31.9, adultSpondylosis w/o myelopathy or radiculopathy, cervical regionComplex regional pain syndrome 2 of right upper limbLow back pain, unspecified Apr-0 - 2 Moualee Lauryn. [address] [facility] [address], [place], [address], [place]. tel:[phone] Referring Provider: Kristen Godoy, [address] [place], [address]. tel:[phone] Psychotherap y, 30 minutes with patient GREG Gonsalves, [address], [place], [place], [address], [place] tel:[phone] [facility] Pain disorder with related psychological factorsMajor depressive disorder, recurrent, moderateOpioid use, unspecified, uncomplicated Oct-0 2 Barnes Kennedi. [address], [place], [address], [place]. tel:[phone] Referring Provider: Kristen Godoy, [address] [place], [address]. tel:[phone] Est Pt Eval 25 Min Telehealth GREG Gonsalves, [address], [place], [place], [address], [place] tel:[phone] [facility] back pain (chief complaint) Spondylosis w/o myelopathy or radiculopathy, cervical regionComplex regional pain syndrome 2 of right upper limbLow back pain, unspecifiedBody mass index (BMI) 34.0-34.9, adult 2 Moualee Lauryn. [address], [place], [address], [place]. tel:[phone] Referring Provider: Kristen Godoy, [address] [place], [address]. tel:[phone] SHARAD Gonsalves, [address], [place], [place], [address], [place] tel:[phone] [facility] No Information 2 [facility] Kiya. [address], [place], [place], [address], [place]. tel:[phone] Referring Provider: Kristen Godoy, [address] [place], [address]. tel:[phone] Est Pt Eval 25 Min SHARAD Gonsalves, [address], [place], [place], [address], [place] tel:[phone] [facility] back pain (chief complaint) Body mass index (BMI) 34.0-34.9, adultSpondylosis w/o myelopathy or radiculopathy, cervical regionComplex regional pain syndrome 2 of right upper limbLow back pain, unspecified 2 Moualee Lauryn. [address], [place], [address], [place]. tel:[phone] Referring Provider: Kristen Godoy, [address] [place], [address]. tel:[phone] Psychotherap y, 30 minutes with patient SHARAD Gonsalves, [address], [place], [address], [place] tel:[phone] [facility] Pain disorder with related psychological factorsMajor depressive disorder, recurrent, moderateOpioid use, unspecified, uncomplicated 2 Cameron Kolb. [address], [place], [address], [place]. tel:[phone] Referring Provider: Kristen Godoy, [address] [facility] [place], [address]. tel:[phone] [facility], [address], [place], [place], [address], [place] tel:[phone] [facility] No Information 2 Pavithra Kiya. [address], [place], [place], [address], [place]. tel:[phone] Referring Provider: Kristen Godoy, [address] [facility] [place], [address]. tel:[phone] [facility], [address], [place], [place], [address], [place] tel:[phone] [facility] No Information 2 Edisonisabelkimberly Combs. [address], [address], [place], [address], [place]. tel:[phone] Referring Provider: Kristen Godoy, [address] [facility] [place], [address]. tel:[phone] [facility], [address], [place], [place], [address], [place] tel:[phone] [facility] No Information 2 Jose Luis Carrillo. [address], [address], [place], [address], [place]. tel:[phone] Referring Provider: Kristen Godoy, [address] [place], [address]. tel:[phone] Psychotherap y, 45 minutes with patient SHARAD Gonsalves, [address], [place], [place], [address], [place] tel:[phone] [facility] Pain disorder with related psychological factorsMajor depressive disorder, recurrent, moderateOpioid use, unspecified, uncomplicated 2 Cameron Kolb. [address], [address], [place], [address], [place]. tel:[phone] Referring Provider: Kristen Godoy, [address] [place], [address]. tel:[phone] GREG Gonsalves, [address], [place], [place], [address], [place] tel:[phone] [facility] No Information 2 Pavithra Huertas. [address], [address], [place]. tel:[phone] Referring Provider: Kristen Godoy, [address] [place], [address]. tel:[phone] Est Pt Eval [address] [facility], [address], [place], [place], [address], [place] tel:[phone] [facility] bilateral neck pain (chief complaint) back pain (chief complaint) Spondylosis w/o myelopathy or radiculopathy, cervical regionPain in unspecified shoulderComplex regional pain syndrome 2 of right upper limbLow back pain, unspecifiedPain in left hipLong term (current) use of opiate analgesic 2 Radha Cobian. [address], [address], [place], [address], [place]. tel:[phone] Referring Provider: Kristen Godoy, [address] [place], [address]. tel:[phone] Psychotherap y, 30 minutes with patient GREG Gonsalves, [address], [place], [place], [address], [place] tel:[phone] [facility] Pain disorder with related psychological factorsMajor depressive disorder, recurrent, moderateOpioid use, unspecified, uncomplicated 2 Cameron Kolb. [address], [place], [address], [place]. tel:[phone] Referring Provider: Kristen Godoy, [address] [place], [address]. tel:[phone] GREG Gonsalves, [address], [place], [place], [address], [place] tel:[phone] [facility] No Information 1 Pavithra Huertas. [address], [address], [place]. tel:[phone] Referring Provider: Kristen Godoy, [address] [place], [address]. tel:[phone] Est Pt Eval [address] [facility], [address], [place], [place], [address], [place] tel:[phone] [facility] neck, shoulder, low back (chief complaint) Spondylosis w/o myelopathy or radiculopathy, cervical regionComplex regional pain syndrome 2 of right upper limbPain in kneeBody mass index (BMI) 34.0-34.9, adult 1 Pricilla Combs. [address], [address], [place], [address], [place]. tel:[phone] Referring Provider: Kristen Godoy, [address] [place], [address]. tel:[phone] Psychotherap y, 30 minutes with patient [facility], [address], [place], [place], [address], [place] tel:[phone] [facility] Pain disorder with related psychological factorsMajor depressive disorder, recurrent, moderateOpioid use, unspecified, uncomplicated Jul-0 8 1 Barnes Kennedi. [address], [address], [place], [address], [place]. tel:[phone] Referring Provider: Kristen Godoy, [address] [place], [address]. tel:[phone] Psychotherap y, 30 minutes with patient [facility], [address], [place], [place], [address], [place] tel:[phone] [facility] Pain disorder with related psychological factors 1 Barnes Kennedi. [address], [address], [place], [address], [place]. tel:[phone] Referring Provider: Kristen Godoy, [address] [place], [address]. tel:[phone] Psychotherap y, 45 minutes with patient [facility], [address], [place], [place], [address], [place] tel:[phone] [facility] Pain disorder with related psychological factors 0 1 Barnes Kennedi. [address], [address], [place], [address], [place]. tel:[phone] Referring Provider: Kristen Godoy, [address] [place], [address]. tel:[phone] Psychotherap y, 30 minutes with patient [facility], [address], [place], [place], [address], [place] tel:[phone] [facility] Pain disorder with related psychological factorsMajor depressive disorder, recurrent, moderateOpioid use, unspecified, uncomplicated 1 Dayna Brown. [address], [address], [place], [address], [place]. tel:[phone] Referring Provider: Kristen Godoy, [address] [place], [address]. tel:[phone] Est Pt Eval 25 Min GREG Gonsalves, [address], [place], [place], [address], [place] tel:[phone] [facility] back pain (chief complaint) Spondylosis w/o myelopathy or radiculopathy, cervical regionPain in right shoulderOther cervical disc degeneration, unsp cervical regionComplex regional pain syndrome 2 of right upper limb 1 She Qiying. [address], [address], [place], [address], [place]. tel:[phone] Referring Provider: Kristen Godoy, [address] [place], [address]. tel:[phone] [facility], [address], [place], [place], [address], [place] tel:[phone] [facility] No Information 1 She Qiying. [address], [address], [place], [address], [place]. tel:[phone] Referring Provider: Kristen Godoy, [address] [place], [address]. tel:[phone] Est Pt Eval [address] [facility], [address], [place], [place], [address], [place] tel:[phone] [facility] back pain (chief complaint) Complex regional pain syndrome 2 of right upper limbCervicalgiaPai n in right shoulderRadiculopa thy, cervical region 1 Jose Luis Carrillo. [address], [address], [place], [address], [place]. tel:[phone] Referring Provider: Kristen Godoy, [address] [place], [address]. tel:[phone] Est Pt Eval [address] [facility], [address], [place], [place], [address], [place] tel:[phone] [facility] right neck pain (chief complaint) Body mass index (BMI) 34.0-34.9, adultCervicalgiaPa in in right shoulderRadiculopa thy, cervical regionComplex regional pain syndrome 2 of right upper limb 1 Mojeramie Combs. [address] , [address], [place], [address], [place]. tel:[phone] Referring Provider: Kristen Godoy, [address] [place], [address]. tel:[phone] Psychotherap y, 30 minutes with patient GREG Gonsalves, [address], [place], [place], [address], [place] tel:[phone] [facility] Pain disorder with related psychological factorsMajor depressive disorder, recurrent, moderateOpioid use, unspecified, uncomplicated 1 Dayna Brown. [address], [place], [address], [place]. tel:[phone] Referring Provider: Kristen Godoy, [address] [place], [address]. tel:[phone] Psychiatric Diagnostic Evaluation [facility], [address], [place], [place], [address], [place] tel:[phone] [facility] Pain disorder with related psychological factors 1 Barnes Kennedi. [address], [place], [address], [place]. tel:[phone] Referring Provider: Kristen Godoy, [address] [place], [place], [facility]. tel:[phone] [facility], [address], [place], [place], [address], [place] tel:[phone] [facility] No Information Sep-2 1 Cameron Kolb. [address], [place], [address], [place]. tel:[phone] Referring Provider: Kristen Godoy, [address] [place], [place], [facility]. tel:[phone] Est Pt Eval [address] [facility], [address], [place], [place], [address], [place] tel:[phone] [facility] bilateral shoulder pain (chief complaint) CervicalgiaPain in right shoulderRadiculopa thy, cervical regionComplex regional pain syndrome 2 of right upper limb Sep-1 1 Moualee Lauryn. [address], [address], [place], [address], [place]. tel:[phone] Referring Provider: Kristen Godoy, [address] [place], [address]. tel:[phone] Psychotherap y, 30 minutes with patient [facility], [address], [place], [place], [address], [place] tel:[phone] [facility] Pain disorder with related psychological factorsMajor depressive disorder, recurrent, moderateOpioid use, unspecified, uncomplicated 1 Dayna Brown. [address], [place], [address], [place]. tel:[phone] Referring Provider: Kristen Godoy, [address] [place], [address]. tel:[phone] [facility], [address], [place], [place], [address], [place] tel:[phone] [facility] Cervicalgia 1 Pavithra Huertas. [address], [place], [place], [address], [place]. tel:[phone] Referring Provider: Kristen Godoy, [address] [place], [address]. tel:[phone] Psychotherap y, 45 minutes with patient Telehealth SHARAD Gonsalves, [address], [place], [place], [address], [place] tel:[phone] [facility] Pain disorder with related psychological factors 1 Cameron Kolb. [address], [address], [place], [address], [place]. tel:[phone] Referring Provider: Kristen Godoy, [address] [place], [address]. tel:[phone] [facility], [address], [place], [place], [address], [place] tel:[phone] [facility] No Information 1 Pavithra Huertas. [address] [facility] [address], [place], [place], [address], [place]. tel:[phone] Referring Provider: Kristen Godoy, [address] [place], [address]. tel:[phone] Psychotherap y, 30 minutes with patient GREG Gonsalves, [address] [facility] [address], [place], [place], [address], [place] tel:[phone] [facility] Pain disorder with related psychological factors 1 Dayna Brown. [address] [facility], [place], [address], [place]. tel:[phone] Referring Provider: Kristen Godoy, [address] [place], [address]. tel:[phone] Est Pt Eval 25 Min GREG Gonsalves, [address], [place], [place], [address], [place] tel:[phone] [facility] bilateral neck pain (chief complaint) CervicalgiaPain in right shoulderRadiculopa thy, cervical regionCardiac, heart or myocardial failure NOS 1 Moualee Lauryn. [address] [facility], [address], [place], [address], [place]. tel:[phone] Referring Provider: Kristen Godoy, [address] [place], [address]. tel:[phone] [facility], [address] [facility], [place], [place], [address], [place] tel:[phone] [facility] No Information 1 Moualee Lauryn. [address] [facility], [address], [place], [address], [place]. tel:[phone] Referring Provider: Kristen Godoy, [address] [place], [address]. tel:[phone] Psychotherap y, 30 minutes with patient SHARAD Gonsalves, [address] [facility] [address], [place], [place], [address], [place] tel:[phone] [facility] Pain disorder with related psychological factorsMajor depressive disorder, recurrent, moderateOpioid use, unspecified, uncomplicated 1 Dayna Brown. [address] [facility], [address], [address], [place]. tel:[phone] Referring Provider: Kristen Godoy, [address] [place], [address]. tel:[phone] [facility], [address], [place], [place], [address], [place] tel:[phone] [facility] No Information 1 Pavithra Huertas. [address] [facility] [address], [place], [address], [place]. tel:[phone] Referring Provider: Kristen Godoy, [address] [place], [address]. tel:[phone] Est Pt Eval [address] [facility], [address], [place], [place], [address], [place] tel:[phone] [facility] bilateral neck pain (chief complaint) Radiculopathy, cervical regionCervicalgiaP ain in right shoulder 1 Mariya Leahy. [address] [facility] [address], [place], [address], [place]. tel:[phone] Referring Provider: Kristen Godoy, [address] [place], [address]. tel:[phone] Psychotherap y, 30 minutes with patient SHARAD Gonsalves, [address], [place], [place], [address], [place] tel:[phone] [facility] Pain disorder with related psychological factorsMajor depressive disorder, recurrent, moderateOpioid use, unspecified, uncomplicated 1 Dayna Brown. [address], [place], [address], [place]. tel:[phone] Referring Provider: Kristen Godoy, [address] [place], [address]. tel:[phone] SHARAD Gonsalves, [address], [place], [address], [place] tel:[phone] [facility] Cervicalgia 1 Pavithra Huertas. [address] [facility] [address], [address], [place]. tel:[phone] Referring Provider: Kristen Godoy, [address] [place], [address]. tel:[phone] Est Pt Eval 25 Min SHARAD Gonsalves, [address] [facility] [address], [place], [place], [address], [place] tel:[phone] [facility] right neck pain (chief complaint) CervicalgiaPain in right shoulderRadiculopa thy, cervical region 1 Mariya Leahy. [address] [facility] [address], [place], [address], [place]. tel:[phone] Referring Provider: Kristen Godoy, [address] [place], [address]. tel:[phone] Psychotherap y, 30 minutes with patient SHARAD Gonsalves, [address], [place], [place], [address], [place] tel:[phone] [facility] Pain disorder with related psychological factorsMajor depressive disorder, recurrent, moderateOpioid use, unspecified, uncomplicated 1 Dayna Brown. [address], [place], [address], [place]. tel:[phone] Referring Provider: Kristen Godoy, [address] [place], [address]. tel:[phone] Est Pt Eval 25 Min [facility], [address], [place], [place], [address], [place] tel:[phone] [facility] neck pain (chief complaint) Pain in right shoulderCervicalgi aRadiculopathy, cervical region 1 Mariya Leahy. [address], [place], [address], [place]. tel:[phone] Referring Provider: Kristen Godoy, [address] [place], [address]. tel:[phone] [facility], [address], [place], [place], [address], [place] tel:[phone] [facility] No Information 1 Pricilla Combs. [address], [place], [address], [place]. tel:[phone] Referring Provider: Kristen Godoy, [address] [place], [address]. tel:[phone] [facility], [address], [place], [place], [address], [place] tel:[phone] [facility] No Information 1 Pavithra Huertas. [address] [facility] [address], [place], [place], [address], [place]. tel:[phone] Referring Provider: Kristen Godoy, [address] [place], [address]. tel:[phone] Psychotherap y, 30 minutes with patient [facility], [facility], [address] [facility] [address], [place], [place], [address], [place] tel:[phone] [facility] Pain disorder with related psychological factorsMajor depressive disorder, recurrent, mildOpioid use, unspecified, uncomplicated 1 Dayna Brown. [address], [address], [place]. tel:[phone] Referring Provider: Kristen Godoy, [address] [place], [address]. tel:[phone] Est Pt Eval 25 Min [facility], [address], [place], [place], [address], [place] tel:[phone] [facility] bilateral neck pain (chief complaint) Pain in right shoulder 1 Machoka Orina. [address], [place], [address], [place]. tel:[phone] Referring Provider: Kristen Godoy, [address] [place], [address]. tel:[phone] Est Pt Eval 25 Min [facility], [address], [place], [place], [address], [place] tel:[phone] [facility] bilateral neck pain (chief complaint) CervicalgiaRadicul opathy, cervical region Oct- 1 Machoka Orina. [address], [place], [address], [place]. tel:[phone] Referring Provider: Kristen Godoy, [address] [place], [address]. tel:[phone] Psychotherap y, 30 minutes with patient GREG Gonsalves, [address] [facility] [address], [place], [place], [address], [place] tel:[phone] [facility] Pain disorder with related psychological factorsMajor depressive disorder, recurrent, moderateOpioid use, unspecified, uncomplicated 1 Dayna Brown. [address] [facility], [address], [place], [address], [place]. tel:[phone] Referring Provider: Kristen Godoy, [address] [place], [address]. tel:[phone] [facility], [address], [place], [place], [address], [place] tel:[phone] [facility] CervicalgiaCervica lgiaRadiculopathy, cervical regionPain in unspecified shoulder 1 Pavithra Huertas. [address] [facility] [address], [address], [place]. tel:[phone] Referring Provider: Kristen Godoy, [address] [place], [address]. tel:[phone] Est Pt Eval [address] [facility], [address] [facility] [address], [place], [place], [address], [place] tel:[phone] [facility] right neck pain (chief complaint) CervicalgiaRadicul opathy, cervical region 1 Mariya Leahy. [address] [facility] [address], [place], [address], [place]. tel:[phone] Referring Provider: Kristen Godoy, [address] [facility], [place], [address]. tel:[phone] SHARAD Gonsalves, [address], [place], [place], [address], [place] tel:[phone] [facility] No Information 1 Sumit Knapp. [address], [place], [place], [address], [place]. tel:[phone] Referring Provider: Ra Tellez, [address], [place], [address] . tel:[phone] [facility], [address], [place], [address], [place] tel:[phone] [facility] Spondylosis w/o myelopathy or radiculopathy, cervical regionCervical disc disorder, unspecified, high cervical regionCervicalgia 1 [facility]. [address], [place], [place], [address], [place]. tel:[phone] Referring Provider: Ra Tellez, [address], [place], [address] . tel:[phone] SHARAD Gonsalves, [address], [place], [place], [address], [place] tel:[phone] [facility] CervicalgiaCervica lgiaRadiculopathy, cervical regionPain in unspecified shoulder 1 [facility] Anne. [address], [place], [place], [address], [place]. tel:[phone] Referring Provider: Kristen Godoy, [address] [facility], [place], [address]. tel:[phone] Psychotherap y, 30 minutes with patient SHARAD Gonsalves, [address], [place], [place], [address], [place] tel:[phone] [facility] Pain disorder with related psychological factorsMajor depressive disorder, recurrent, moderateOpioid use, unspecified, uncomplicated 1 Dayna Brown. [address], [place], [address], [place]. tel:[phone] Referring Provider: Kristen Godoy, [address] [place], [address]. tel:[phone] Est Pt Eval [address] [facility], [address] [facility] [address], [place], [place], [address], [place] tel:[phone] [facility] right shoulder pain (chief complaint) bilateral neck pain (chief complaint) Pain in right wristCervicalgia 1 Hayleeoka Orierin. [address], [place], [address], [place]. tel:[phone] Referring Provider: Kristen Godoy, [address] [place], [address]. tel:[phone] [facility], [address], [place], [place], [address], [place] tel:[phone] [facility] No Information 1 Hayleeoka Orina. [address], [place], [address], [place]. tel:[phone] Referring Provider: Kristen Godoy, [address] [place], [address]. tel:[phone] Psychotherap y, 30 minutes with patient GREG [facility]alvesC, [address] [facility] [facility] [address], [place], [place], [address], [place] tel:[phone] [id number] [facility] Pain disorder with related psychological factorsMajor depressive disorder, recurrent, moderateOpioid use, unspecified, uncomplicated 1 Dayna Brown. [address], [address], [place]. tel:[phone] Referring Provider: Kristen Godoy, [address] [place], [address]. tel:[phone] [facility], [address], [place], [address], [place] tel:[phone] [facility] Pain disorder with related psychological factors [facility]. [address], [place], [address], [place]. tel:[phone] Referring Provider: Kristen Godoy, [address] [facility] [place], [address]. tel:[phone] [facility], [address], [place], [address], [place] tel:[phone] [facility] No Information 1 [facility] Isabel. [address], [address], [place], [place], [address], [place]. tel:[phone] Referring Provider: Kristen Godoy, [address] [facility] [place], [address]. tel:[phone] [facility], [address], [place], [address], [place] tel:[phone] [facility] No Information 0 [facility]. [address], [address], [place], [address], [place]. tel:[phone] Referring Provider: Kristen Godoy, [address] [facility] [place], [address]. tel:[phone] Est Pt Eval 25 Min Telehealth SHARAD Gonsalves, [address], [place], [place], [address], [place] tel:[phone] [facility] bilateral neck pain (chief complaint) Pain in right shoulderSpondylosi s w/o myelopathy or radiculopathy, cervical regionOther cervical disc degeneration, unsp cervical regionChronic pain syndromeCervicalgi a 0 Hollie Huber. [address], [place], [address], [place]. tel:[phone] Referring Provider: Kristen Godoy, [address] [place], [address]. tel:[phone] GREG Gonsalves, [address], [place], [address], [place] tel:[phone] [facility] CervicalgiaCervica lgiaRadiculopathy, cervical regionPain in unspecified shoulder 0 Pavithra Huertas. [address], [place], [address], [place]. tel:[phone] Referring Provider: Kristen Godoy, [address] [place], [address]. tel:[phone] GREG Gonsalves, [address], [address], [place] tel:[phone] [facility] Pain disorder with related psychological factorsMajor depressive disorder, recurrent, moderateOpioid use, unspecified, uncomplicated 0- 0 Dayna Brown. [address], [address], [place], [address], [place]. tel:[phone] Referring Provider: Kristen Godoy, [address] [place], [address]. tel:[phone] Est Pt Eval 15 Min Telehealth Major, [facility], [address] [facility], [place], [place], [address], [place] tel:[phone] [facility] bilateral neck pain (chief complaint) Wrist Pain (chief complaint) CervicalgiaChronic pain syndromeOpioid dependencePain in right wristRadiculopathy , cervical region Nov-3 0-202 0 Hollie Huber. [address] [facility] [address] [facility] [address], [place], [address], [place]. tel:[phone] Referring Provider: Kristen Kwong MD R, [address] [facility], [place], [address]. tel:[phone] [facility], [address] [facility] [facility], [place], [address], [place] tel:[phone] [facility] bilateral neck pain (chief complaint) CervicalgiaSpondyl osis w/o myelopathy of cervical regionOther cervical disc degeneration, unsp cervical regionSpondylosis w/o myelopathy or radiculopathy, cervical regionOther cervical disc degeneration, unsp cervical regionCervicalgia Nov-0 2-202 0 [facility]. [address] [facility] [address], [place], [place], [address], [place]. tel:[phone] Referring Provider: Ra Tellez, [address], [place], [address] . tel:[phone] [facility], [address] [facility] [facility] [address], [place], [place], [address], [place] tel:[phone] [facility] No Information Nov-0 2-202 0 Sumit Knapp. [address], [place], [place], [address], [place]. tel:[phone] Referring Provider: Ra Tellez, [address], [place], [address] . tel:[phone] [facility], [address] [facility] [address], [place], [place], [address], [place] tel:[phone] [facility] CervicalgiaCervica lgiaRadiculopathy, cervical regionPain in unspecified shoulder 0 Pavithra Huertas. [address] [facility] [address], [address], [place]. tel:[phone] Referring Provider: Kristen Godoy, [address] [place], [address]. tel:[phone] Psychotherap y, 30 minutes [address] [facility], [address] [facility] [address], [place], [place], [address], [place] tel:[phone] [facility] Pain disorder with related psychological factorsOpioid use, unspecified, uncomplicatedMajor depressive disorder, recurrent, moderate 0 Dayna Brown. [address] [facility] [address], [place], [address], [place]. tel:[phone] Referring Provider: Kristen Godoy, [address] [place], [address]. tel:[phone] Est Pt Eval [address] [facility], [address] [facility] [address], [place], [place], [address], [place] tel:[phone] [facility] bilateral neck pain (chief complaint) AnxietyCervicalgia Chronic pain syndromePain in right shoulderRadiculopa thy, cervical regionPain in right wrist 0 Hollie Huber. [address] [facility] [address], [place], [address], [place]. tel:[phone] Referring Provider: Kristen Godoy, [address] [facility] [place], [address]. tel:[phone] SHARAD Gonsalves, [address] [facility] [address], [place], [place], [address], [place] tel:[phone] [facility] No Information 0 Hollie Huber. [address], [place], [address], [place]. tel:[phone] Referring Provider: Kristen Godoy, [address] [facility], [place], [address]. tel:[phone] Psychotherap y, 30 minutes with patient SHARAD Gonsalves, [address] [facility] [address], [place], [place], [address], [place] tel:[phone] [facility] Pain disorder with related psychological factorsMajor depressive disorder, recurrent, moderateOpioid use, unspecified, uncomplicated 0 Dayna Brown. [address], [address], [place]. tel:[phone] Referring Provider: Kristen Godoy, [address] [facility], [place], [address]. tel:[phone] SHARAD Gonsalves, [address] [facility] [address], [place], [address], [place] tel:[phone] [facility] CervicalgiaCervica lgiaRadiculopathy, cervical regionPain in unspecified shoulder 0 Pavithra Huertas. [address] [facility] [address], [place], [address], [place]. tel:[phone] Referring Provider: Kristen Godoy, [address] [facility] Sp[facility], [place], [address]. tel:[phone] Est Pt Eval 25 Min SHARAD Gonsalves, [address] [address], [place], [place], [address], [place] tel:[phone] [facility] bilateral neck pain (chief complaint) CervicalgiaRadicul opathy, cervical regionPain in right shoulderChronic pain syndromeAnxiety Oct 5-202 0 Ianmonica Cecile. [address], [place], [place], [address], [place]. tel:[phone] Referring Provider: Kristen Godoy, [address] [place], [address]. tel:[phone] Psychotherap y, 30 minutes with patient GREG Gonsalves, [address] [facility] [address], [place], [place], [address], [place] tel:[phone] [facility] Pain disorder with related psychological factorsMajor depressive disorder, recurrent, moderate Sep-0 8-202 0 FlorentinoMarissa Hall. [address] [facility], [address], [place], [place], [address], [place]. tel:[phone] Referring Provider: Kristen Godoy, [address] [facility], [place], [address]. tel:[phone] GREG Gonsalves, [address] [facility], [place], [place], [address], [place] tel:[phone] [facility] CervicalgiaCervica lgiaRadiculopathy, cervical regionPain in unspecified shoulder Sep-0 8-202 0 El Burgos. [address] [facility] [address], [facility] , [place], [address], [place]. tel:[phone] Referring Provider: Kristen Godoy, [address] [facility], [place], [address]. tel:[phone] Est Pt Eval 25 Min GREG Gonsalves, [address] [facility], [place], [place], [address], [place] tel:[phone] [facility] bilateral neck pain (chief complaint) CervicalgiaChronic pain syndromePain in unspecified shoulderRadiculopa thy, cervical region Apr- 0 [facility] Orina. [address], [place], [address], [place]. tel:[phone] Referring Provider: Kristen Godoy, [address] [place], [address]. tel:[phone] GREG Gonsalves, [address], [place], [address], [place] tel:[phone] [facility] No Information 0 [facility] Ori. [address] [facility] [address], [place], [address], [place]. tel:[phone] Referring Provider: Kristen Godoy, [address] [place], [address]. tel:[phone] GREG Gonsalves, [address] [facility] [address], [place], [address], [place] tel:[phone] [facility] CervicalgiaCervica lgiaRadiculopathy, cervical regionPain in unspecified shoulder 0 [facility] Kiya. [address] [facility] 220[place], [place], [address], [place]. tel:[phone] Referring Provider: Kristen Godoy, [address] [place], [address]. tel:[phone] Est Pt Eval 25 Min GREG Gonsalves, [address] [facility] [address], [place], [address], [place] tel:[phone] [facility] bilateral neck pain (chief complaint) joint pain (chief complaint) CervicalgiaMajor depressv disorder, recurrent severe w/o psych featuresOpioid dependencePain in right wristRadiculopathy , cervical region 0 [place] Orina. [address], [place], [address], [place]. tel:[phone] Referring Provider: Kristen Godoy, [address] [facility], [place], [address]. tel:[phone] Psychotherap y, 30 minutes with patient SHARAD Gonsalves, [address], [place], [place], [address], [place] tel:[phone] [facility] Pain disorder with related psychological factorsMajor depressive disorder, recurrent, mildOpioid use, unspecified, uncomplicated 0 Kiley Hall. [address], [place], [place], [address], [place]. tel:[phone] Referring Provider: Kristen Godoy, [address] [place], [address]. tel:[phone] SHARAD Gonsalves, [address], [place], [place], [address], [place] tel:[phone] [facility] No Information 0 [place] Orina. [address], [place], [address], [place]. tel:[phone] Referring Provider: Kristen Godoy, [address] [place], [address]. tel:[phone] Psychotherap y, 30 minutes with patient SHARAD Gonsalves, [address], [place], [place], [address], [place] tel:[phone] [facility] Opioid use, unspecified, uncomplicated 0 Dinorah Cole. [address], [place], [place], [address], [place]. tel:[phone] Referring Provider: Kristen Godoy, [address] [place], [address]. tel:[phone] Est Pt Eval 25 Min [facility], [address], [place], [place], [address], [place] tel:[phone] [facility] bilateral neck pain (chief complaint) joint pain (chief complaint) AnxietyCervicalgia Opioid dependenceChronic pain syndromePain in right wristRadiculopathy , cervical region 0 Hollie Huber. [address], [address], [place]. tel:[phone] Referring Provider: Kristen Godoy, [address] [place], [address]. tel:[phone] [facility], [address], [place], [address], [place] tel:[phone] [facility] CervicalgiaCervica lgiaRadiculopathy, cervical regionPain in unspecified shoulder 0 Pavithra Huertas. [address], [place], [address], [place]. tel:[phone] Referring Provider: Kristen Godoy, [address] [place], [address]. tel:[phone] Est Pt Eval 25 Min [facility], [address], [place], [address], [place] tel:[phone] [facility] bilateral neck pain (chief complaint) joint pain (chief complaint) AnxietyCervicalgia Chronic pain syndromeOpioid dependencePain in right wristRadiculopathy , cervical region 0 Hollie Huber. [address] [address], [place], [address], [place]. tel:[phone] Referring Provider: Kristen Godoy, [address] [place], [address]. tel:[phone] GREG Gonsalves, [address] [facility] [address], [place], [place], [address], [place] tel:[phone] [facility] CervicalgiaCervica lgiaRadiculopathy, cervical regionPain in unspecified shoulder 0 Pavithra Huertas. [address] [facility] [address], [place], [place], [address], [place]. tel:[phone] Referring Provider: Kristen Godoy, [address] [place], [address]. tel:[phone] Psychotherap y, 30 minutes with patient GREG Gonsalves, [address] [facility], [place], [place], [address], [place] tel:[phone] [facility] Opioid use, unspecified, uncomplicated 0 Dinorah Cole. [address] [facility], [address], [place], [place], [address], [place]. tel:[phone] Referring Provider: Kristen Godoy, [address] [place], [address]. tel:[phone] Est Pt Eval 15 Min Telehealth GREG Gonsalves, [address] [facility], [place], [place], [address], [place] tel:[phone] [facility] bilateral neck pain (chief complaint) joint pain (chief complaint) CervicalgiaRadicul opathy, cervical regionMajor depressv disorder, recurrent severe w/o psych featuresAnxietyPai n in unspecified shoulderOpioid dependencePain in right wristChronic pain syndrome 0 Hollie Huber. [address] [facility] [address], [place], [place], [address], [place]. tel:[phone] Referring Provider: Kristen Godoy, [address] [place], [address]. tel:[phone] Est Pt Eval 25 Min Telehealth [facility], [facility], [address] [facility] [facility] [address], [place], [place], [address], [place] tel:[phone] [facility] bilateral neck pain (chief complaint) CervicalgiaPostlam inectomy syndrome, not elsewhere classifiedRadiculo tripp, cervical regionLong term (current) use of opiate analgesicPain disorder with related psychological factorsFusion of spine, cervical region 0 Mariya Leahy. [address] [facility] [address], [place], [address], [place]. tel:[phone] Referring Provider: Kristen Godoy, [address] [place], [address]. tel:[phone] Est Pt Eval 25 Min Telehealth [facility], [facility], [address] [facility] [address], [place], [place], [address], [place] tel:[phone] [facility] Abdominal pain (chief complaint) right hip pain (chief complaint) bilateral neck pain (chief complaint) CervicalgiaRadicul opathy, cervical regionPostlaminect kvng syndrome, not elsewhere classifiedFusion of spine, cervical regionGeneralized anxiety disorderLong term (current) use of opiate analgesicPain in right wrist 0 Hollie Huber. [address] [facility] [address], [place], [address], [place]. tel:[phone] Referring Provider: Kristen Godoy, [address] [place], [address]. tel:[phone] Psychotherap y, 30 minutes with patient [facility], [address] [facility], [place], [place], [address], [place] tel:[phone] [facility] Pain disorder with related psychological factorsMajor depressv disorder, recurrent severe w/o psych features 0 Marisela To. [address] [facility] [address], [place], [address], [place]. tel:[phone] Referring Provider: Kristen Godoy, [address] [place], [address]. tel:[phone] GREG Gonsalves, [address] [facility], [place], [place], [address], [place] tel:[phone] [facility] CervicalgiaCervica lgiaRadiculopathy, cervical regionPain in unspecified shoulder 0 Pavithra Huertas. [address] [facility] [address], [place], [place], [address], [place]. tel:[phone] Referring Provider: Kristen Godoy, [address] [place], [address]. tel:[phone] GREG Gonsalves, [address] [facility] [address], [place], [place], [address], [place] tel:[phone] [facility] CervicalgiaCervica lgiaRadiculopathy, cervical regionPain in unspecified shoulder 0 El Burgos. [address] [facility] [address], [facility] , [place], [address], [place]. tel:[phone] Referring Provider: Kristen Godoy, [address] [facility], [place], [address]. tel:[phone] Est Pt Eval 25 Min Telehealth SHARAD Gonsalves, [address] [facility] [address], [place], [place], [address], [place] tel:[phone] [facility] bilateral neck pain (chief complaint) Radiculopathy, cervical regionCervicalgiaP ostlaminectomy syndrome, not elsewhere classifiedLong term (current) use of opiate analgesicGeneraliz ed anxiety disorderFusion of spine, cervical regionRadiculopath y, lumbar region 0 Mariya Leahy. [address] [facility] [address], [place], [address], [place]. tel:[phone] Referring Provider: Kristen Godoy, [address] [place], [address]. tel:[phone] Psychotherap y, [address] [facility], [address] [facility] [address], [place], [place], [address], [place] tel:[phone] [facility] Pain disorder with related psychological factorsMajor depressv disorder, recurrent severe w/o psych featuresOpioid use, unspecified, uncomplicated 0 Florentino-Lilliana leo Isabel. [address] [facility] [address], [place], [place], [address], [place]. tel:[phone] Referring Provider: Kristen Godoy, [address] [place], [address]. tel:[phone] Est Pt Eval [address] [facility], [address] [facility] [address], [place], [place], [address], [place] tel:[phone] [facility] bilateral neck pain (chief complaint) CervicalgiaPain in right wristLong term (current) use of opiate analgesicGeneraliz ed anxiety disorderPostlamine ctomy syndrome, not elsewhere classifiedFusion of spine, cervical regionLow back pain 0 Hollie Huber. [address] [facility] [address], [place], [place], [address], [place]. tel:[phone] Referring Provider: Kristen Godoy, [address] [place], [address]. tel:[phone] SHARAD Gonsalves, [address], [place], [place], [address], [place] tel:[phone] [facility] CervicalgiaCervica lgiaRadiculopathy, cervical regionPain in unspecified shoulder 0 Neema To. [address] [place], [address], [place]. tel:[phone] Referring Provider: Kristen Godoy, [address] [place], [address]. tel:[phone] Est Pt Eval 25 Min GREG Gonsalves, [address], [place], [place], [address], [place] tel:[phone] [facility] bilateral neck pain (chief complaint) joint pain (chief complaint) CervicalgiaFusion of spine, cervical regionGeneralized anxiety disorderPostlamine ctomy syndrome, not elsewhere classifiedPain in right wrist 0 Hollie Huber. [address] [facility] 220[place], [place], [address], [place]. tel:[phone] Referring Provider: Kristen Godoy, [address] [place], [address]. tel:[phone] GREG Gonsalves, [address], [place], [place], [address], [place] tel:[phone] [facility] No Information 0 Hollie Huber. [address], [address], [place]. tel:[phone] Referring Provider: Kristen Godoy, [address] [place], [address]. tel:[phone] GREG Gonsalves, [address], [place], [place], [address], [place] tel:[phone] [facility] CervicalgiaCervica lgiaRadiculopathy, cervical regionPain in unspecified shoulder 0 Pavithra Huertas. [address] [facility] [address], [place], [place], [address], [place]. tel:[phone] Referring Provider: Kristen Godoy, [address] [place], [address]. tel:[phone] Est Pt Eval 25 Min GREG Gonsalves, [address] [facility] [address], [place], [place], [address], [place] tel:[phone] [facility] back pain (chief complaint) CervicalgiaGeneral ized anxiety disorderPain in right wristRadiculopathy , cervical regionPostlaminect kvng syndrome, not elsewhere classifiedLow back painLong term (current) use of opiate analgesicFusion of spine, cervical regionRadiculopath y, lumbar region 0 Hollie Huber. [address] [facility] [address], [place], [place], [address], [place]. tel:[phone] Referring Provider: Kristen Godoy, [address] [place], [address]. tel:[phone] Psychotherap y, 30 minutes with patient SHARAD Gonsalves, [address] [facility] [address], [place], [place], [address], [place] tel:[phone] [facility] Opioid use, unspecified, uncomplicated 0 Dinorah Cole. [address] [facility], [address], [place], [place], [address], [place]. tel:[phone] Referring Provider: Kristen Godoy, [address] [place], [address]. tel:[phone] SHARAD Gonsalves, [address] [facility], [place], [place], [address], [place] tel:[phone] [facility] Opioid use, unspecified, uncomplicated 9 Dinorah Cole. [address] [facility], [address], [place], [place], [address], [place]. tel:[phone] Referring Provider: Kristen Godoy, [address] [place], [address]. tel:[phone] Est Pt Eval 25 Min [facility], [address] [facility], [place], [place], [address], [place] tel:[phone] [facility] back pain (chief complaint) Generalized anxiety disorderLong term (current) use of opiate analgesicFusion of spine, cervical regionPostlaminect kvng syndrome, not elsewhere classifiedPain in right wristRadiculopathy , cervical regionCervicalgia 9 Hollie Huber. [address] [facility] [address], [place], [id number], [place]. tel:[phone] Referring Provider: Kristen Godoy, [address] [place], [address]. tel:[phone] Est Pt Eval 25 Min [facility], [address] [facility], [place], [place], [id number], [place] tel:[phone] [facility] bilateral neck pain (chief complaint) Radiculopathy, cervical regionLong term (current) use of opiate analgesicPain in right wristPostlaminecto my syndrome, not elsewhere classified 9 Burgess Zaman. [address] [facility] [address], [address], [place]. tel:[phone] Referring Provider: Kristen Godoy, [address] [place], [address]. tel:[phone] [facility], [address], [place], [place], [id number], [place] tel:[phone] [facility] No Information 9 Hollie Huber. [address], [place], [place], [id number], [place]. tel:[phone] Referring Provider: Kristen Godoy, [address] [place], [address]. tel:[phone] Psychotherap y, 30 minutes with patient Major, [facility], [address] [facility], [place], [place], [id number], [place] tel:[phone] [facility] Opioid use, unspecified, uncomplicatedPain disorder with related psychological factors 9 Dinorah Cole. [address], [place], [place], [address], [place]. tel:[phone] Referring Provider: Kristen Godoy, [address] [place], [address]. tel:[phone] Est Pt Eval 25 Min [facility], [address] [facility], [place], [place], [id number], [place] tel:[phone] [facility] back pain (chief complaint) Postlaminectomy syndrome, not elsewhere classifiedRadiculo tripp, cervical regionLong term (current) use of opiate analgesic 9 Yana Skinner. [address], [place], [place], [address], [place]. tel:[phone] Referring Provider: Kristen Godoy, [address] [place], [address]. tel:[phone] Est Pt Eval 25 Min [facility], [address] [facility] [facility] [address], [place], [place], [id number], [place] tel:[phone] [facility] Neck Pain (chief complaint) CervicalgiaPostlam inectomy syndrome, not elsewhere classifiedLong term (current) use of opiate analgesicRadiculop athy, cervical regionPain in right wrist 9 Hollie Huber. [address], [place], [place], [address], [place]. tel:[phone] Referring Provider: Kristen Godoy, [address] [place], [address]. tel:[phone] [facility], [address], [place], [id number], [place] tel:[phone] [facility] CervicalgiaCervica lgiaRadiculopathy, cervical regionPain in unspecified shoulder May- 9 [facility] Kiya. [address], [place], [address], [place]. tel:[phone] Referring Provider: Kristen Godoy, [address] [place], [address]. tel:[phone] [facility], [address], [place], [place], [address], [place] tel:[phone] [facility] CervicalgiaCervica lgiaRadiculopathy, cervical regionPain in unspecified shoulder Apr- 9 [facility] Kiya. [address], [place], [address], [place]. tel:[phone] Referring Provider: Kristen Godoy, [address] [place], [address]. tel:[phone] New Pt Eval 45 Min GREG Gonsalves, [address], [place], [place], [address], [place] tel:[phone] [facility] bilateral neck pain (chief complaint) bilateral wrist pain (chief complaint) CervicalgiaPostlam inectomy syndrome, not elsewhere classifiedLong term (current) use of opiate analgesic Apr- 9 Sumit Tidwell. [address] [facility] [address], [place], [place], [address], [place]. tel:[phone] Referring Provider: Kristen Kwong MD R, [address] [place] [address], [address]. tel:[phone] Family History Family Member Type Diagnosis Age At Onset Sister Problem (finding) Alcoholism Father Problem (finding) Cancer Mother Problem (finding) COPD Sister Problem (finding) Depression Father Problem (finding) Heart Disease Brother Problem (finding) Depression Mother Problem (finding) Heart Disease Father Problem (finding) Alcoholism Mother Problem (finding) Depression Payers Payer name Insurance type Covered democrat ID Authoriza tishanda(s) [employer] [id number] [facility] [id number] Social History Type Description Quantity Date Captured Comments Alcohol Use Details No Caffeine Use Details coffee and soda Tobacco Use Status Current non-smoker Smoking Status Former smoker Non-Smoking Tobacco Use Details : No Details Available : No Details Available Sex Female Vital Signs Date / Time: Height Weight BMI Pulse Rate Blood Pressure Temperature Respiratory Rate Body Surface Area Head Circumference Head Circ. Percentile Wt./Cristo. Percentile BMI percentile Pulse Ox Inhaled Ox 10:35 AM 64.00 in 73.028 kg (161.00 lbs) 27.6 4 kg/m eter (2) 1.82 meter(2) Chief Complaint And Reason For Visit From encounter dated '03/11/2024 12:15'. neck pain (chief complaint). Description: The pain is located in the posterior neck on both sides. The neck pain radiates into both shoulders. Pain intensity is currently 6/10.The pain has been worsening . The pain is constant. The pain is described as deep. The following activities make the pain worse: pressure. The following activities make the pain better: heat, cold, pain medication and sleeping. lower back pain (chief complaint). Description: The pain is located in the low back on both sides. Pain intensity is currently 6/10.The pain has been worsening . The pain is constant. The pain is described as deep. The following activities make the pain worse: prolonged standing and overused. The following activities make the pain better: heat, cold, pain medication and sleeping. Chief Complaint 3 (chief complaint) Reason For Referral Reason For Referral No Information Plan Of Treatment Date Type Action Status Goal Lifestyle educat ion regarding diet completed Goal Lifestyle educat ion regarding diet completed Goal Lifestyle educat ion regarding diet completed Goal Lifestyle educat ion regarding diet completed Goal Tobacco cessation counseling completed Goal Tobacco cessation counseling completed Goal Tobacco cessation counseling completed Referral Ordered: Pain Management (related to Radiculopathy, cervical region) ordered Referral Ordered: Referrals: Pain Management. Location: [facility]. Evaluate and treat ordered Referral Ordered: Gagandeep Quinn MD -Pain Management (related to Radiculopathy, cervical region) ordered Referral Referred To: Gagandeep Quinn MD [address] [place] [address], [phone] Ordered: Referrals: Pain Management. Gagandeep Quinn MD. Location: [facility]. Assume care ordered Referral Ordered: Pain Management (related to Complex regional pain syndrome 2 of rt upper limb) ordered Referral Ordered: Referrals: Pain Management. Location: [facility]. Evaluate and treat ordered Referral Referred To: cervical epidural steroid injection Ordered: cervical epidural steroid injection C6-7 ordered Referral Referred To: Ruby De Los Santos Ordered: Obtain - Outside Med Recs: Ruby De Los Santos ordered Referral Ordered: Obtain - Outside Med Recs: - Obtain medical records including imaging reports from Ruby [facility] [address] [facility] Warren Peña ordered Referral Referred To: stellate ganglion nerve block Ordered: stellate ganglion nerve block on the right ordered Future Order: Lab Order Alcohol (Ethyl Glucuronide) (Alcohol), Ordered on: Ordered Future Order: Lab Order Danutaa ronald Urine Drug Screen (UDT) (7-Drug Class), Ordered on: Ordered Future Order: Radiology Order X- RAY - Lumbar Spine (AP, Neutral, Lateral Neutral, Flexion, Extension Views) ([id number]), Ordered on: Ordered Future Order: Radiology Order MR I - Lumbar Spine W/O Contrast ([id number]), Ordered on: Ordered Future Order: Radiology Order MR I - Shoulder W/O Contrast ([id number]), Ordered on: Ordered History Of Present Illness Encounter Date Complaint History Of Prese nt Illness neck pain The pain is loca shawn in the posterior neck on both sides. The neck pain radiates into both shoulders. Pain intensity is currently 6/10.The pain has been worsening . The pain is constant. The pain is described as deep. The following activities make the pain worse: pressure. The following activities make the pain better: heat, cold, pain medication and sleeping. Chief Complaint 3 lower back pain The pain is loca shawn in the low back on both sides. Pain intensity is currently 6/10.The pain has been worsening . The pain is constant. The pain is described as deep. The following activities make the pain worse: prolonged standing and overused. The following activities make the pain better: heat, cold, pain medication and sleeping. lower back pain The pain is loca shawn in the low back on both sides. The lower back pain radiates into the right shoulder. The pain pattern also includes the neck and ankle. Pain intensity is currently 7/10.The pain is constant. The pain is described as deep. The following activities make the pain worse: sleeping. The following activities make the pain better: heat, cold, pain medication and injections. neck pain The pain is loca shawn in the posterior neck on both sides. Pain intensity is currently 7/10.The pain has been worsening . The pain is described as shooting. The following activities make the pain better: pain medication. shoulder pain The pain is loca shawn in the right shoulder. The shoulder pain radiates into the right arm. Pain intensity is currently 7/10.The pain has been worsening . The pain is described as shooting. The following activities make the pain better: pain medication. lower back pain The pain is loca shawn in the low back on both sides. Pain intensity is currently 7/10.The pain is described as shooting. The following activities make the pain better: pain medication. Neck Pain Location of pain is bilateral lateral neck, bilateral posterior neck and bilateral shoulder. There is radiation of pain to the back. The patient describes the pain as Aching and deep. Aggravating factors include lying down. Relieving factors include ice and pain meds. Neck Pain Location of pain is bilateral lateral neck, bilateral posterior neck and bilateral shoulder. Aggravating factors include prolonged sitting. Denies relieving factors. Associated symptoms include joint pain. Pertinent negatives include rash. back pain Location of pain is lower back. The patient describes the pain as burning. Symptoms are aggravated by Prolonged sitting.The patient denies relieving factors. back pain (comments) Comments: P ebenezer reports she is on oxygen daily currently due to COVID. Patient does not know how long she will be on oxygen. back pain Location of pain is lower back. The patient describes the pain as deep and nagging. Symptoms are aggravated by lying/rest and sitting.The patient denies relieving factors. Neck Pain Location of pain is bilateral lateral neck and bilateral posterior neck. There is radiation of pain to the bilateral shoulders. The patient describes the pain as deep and nagging. Aggravating factors include lying down and prolonged sitting. Denies relieving factors. Neck Pain Location of pain is right shoulder. back pain Location of pain is lower back. joint pain It occurs interm ittently and is worsening. Location: patient states all joints from neck to feet. The pain is deep ache. The pain is aggravated by walking. The pain is relieved by heat and pain/RX meds. joint pain (comments) Comments: Patient reports all over joint pain that is keeping her awake throughout the night. She described the pain as sharp. She has been using heating pad for improvement. back pain Location of pain is lower back and neck. The patient describes the pain as an ache and deep.The patient denies aggravating factors. The patient denies relieving factors. back pain Location of pain is lower back, neck, left hip and right shoulder. The patient describes the pain as an ache and deep. Symptoms are aggravated by sitting.The patient denies relieving factors. back pain It occurs persis tently. Location of pain is lower back and neck.The patient denies aggravating factors. Symptoms are relieved by heat, ice, pain meds/drugs and sleep. back pain Location of pain is lower back, neck and Right shoulder. The patient describes the pain as deep, sharp and Constant. Symptoms are aggravated by bending, daily activities and twisting.The patient denies relieving factors. right neck pain The symptoms occ ur constantly. The location is R neck/shoulder, MATHEUS ankles. The symptoms are described as deep. Aggravating factors include Walking and Daily activities. right neck pain The symptoms occ ur constantly. The location is INTO RIGHT SHOULDER. The patient states the symptoms are chronic and are unstable. right neck pain The symptoms are reported as being moderate. The symptoms occur constantly. Pain is located in Mid/Right side of Neck and Right Shoulder. back pain The problem is w orsening. It occurs persistently. Location of pain is lower back, right neck and right shoulder. back pain The problem is s table. It occurs persistently. Location of pain is lower back, right neck, right shoulder and left foot. back pain The problem is w orsening. Location of pain is lower back, right neck, right shoulder and left foot. right neck pain right neck pain The symptoms occ ur constantly. The location is radiates to right shoulder. The symptoms are described as deep. back pain Severity level i s 8. Location of pain is lower back. The patient describes the pain as burning and tightness. Symptoms are aggravated by daily activities, standing and walking.The patient denies relieving factors. left foot pain Severity level i s 7. Location: left foot. Context: there is an injury. The pain is aggravated by walking and standing. The pain is relieved by elevation, ice and pain/RX meds. Additional information: fracture to fifth metatarsal on 10/07/22. back pain Location of pain is lower back and neck. Pain is radiated to the Shoulders. The patient describes the pain as burning. Symptoms are aggravated by twisting and walking. Symptoms are relieved by heat, ice and pain meds/drugs. back pain Location of pain is lower back, neck and shoulders. The patient describes the pain as an ache, sharp, shooting, stabbing and throbbing. Symptoms are aggravated by daily activities, standing and walking.The patient denies relieving factors. back pain The problem is w orsening. Location of pain is lower back, neck and shoulders.The patient describes the pain as an ache, sharp, stabbing and throbbing. Symptoms are aggravated by daily activities, standing and walking. Symptoms are relieved by heat, ice, pain meds/drugs and rest. back pain Location of pain is upper back, middle back, lower back, neck and shoulders.The patient describes the pain as an ache, stabbing and throbbing. Symptoms are aggravated by daily activities and walking. Symptoms are relieved by ice and rest. back pain The problem is w orsening. It occurs persistently. Location of pain is lower back and neck. Pain is radiated to the Matheus shoulders.The patient describes the pain as an ache and burning.The patient denies aggravating factors. Symptoms are relieved by ice, pain meds/drugs and sleep. back pain The problem is w orsening. It occurs persistently. Location of pain is lower back, neck, shoulder and ribs.There is no radiation of pain. neck, shoulder, low back, ribs T he symptoms are described as deep, constant. Aggravating factors include movement. Relieving factors include Nothing. Pt says it is difficult to breathe and sleep. bilateral shoulder pain Location : bilateral shoulder. The pain radiates to the lower front neck on both sides. back pain Severity level i s 6. Location of pain is lower back, neck and both shoulders.The patient describes the pain as an ache and sharp. Symptoms are aggravated by bending, lifting and walking. Symptoms are relieved by ice and pain meds/drugs. neck, shoulder, low back Associa shawn symptoms include Deep, sharp, grinding, hot, burning. neck, shoulders, low back Associ ated symptoms include deep, sharp, grinding, hot, burning. right neck pain The symptoms are reported as being severe. The symptoms occur constantly. She states the symptoms are chronic and are unstable. back pain Location of pain is upper back, middle back, lower back, gluteal area and neck.The patient describes the pain as an ache, burning, deep, diffuse, shooting, stabbing, superficial and throbbing. Symptoms are aggravated by bending, changing positions, daily activities, standing and twisting. Symptoms are relieved by heat, ice, injection, pain meds/drugs, physical therapy, spontaneous relief and stretching. back pain Location of pain is middle back and neck.The patient describes the pain as deep, diffuse, shooting, stabbing and superficial. Symptoms are aggravated by bending, changing positions, daily activities, standing and twisting. Symptoms are relieved by pain meds/drugs. back pain Location of pain is middle back and lower back. Pain is radiated to the R SHOULDER.The patient describes the pain as burning, deep, sharp, shooting, stabbing and superficial. Symptoms are aggravated by bending, daily activities, standing and twisting. Symptoms are relieved by heat, ice, pain meds/drugs, physical therapy, spontaneous relief, stretching and rest. bilateral neck pain The location is radiates to shoulder. The symptoms are described as deep. Relieving factors include Ice and Pain meds/drugs. back pain Location of pain is lower back. Pain is radiated to the left hip. neck, shoulder, low back Associa shawn symptoms include deep, intense. 04/04 back pain Location of pain is lower back, Bilateral shoulders and neck.The patient describes the pain as an ache, burning and deep. Symptoms are aggravated by movement and touch. Symptoms are relieved by ice and pain meds/drugs. back pain Location of pain is lower back, neck and right shoulder. right neck pain The symptoms occ ur constantly. Aggravating factors include Walking, Bending, Daily activities, Sitting and Standing. Relieving factors include Ice and Pain meds/drugs. Patient states that there is also some pain in lower back for about a month now. It feels like it is cramping. bilateral shoulder pain Location : bilateral shoulder. The pain radiates to the neck. The pain is aching, burning, piercing, sharp and throbbing. The pain is aggravated by daily activities. The pain is relieved by pain/RX meds. bilateral neck pain Patient has neck pain that leads to her right shoulder to her wrist. bilateral neck pain The symptoms occur constantly. The location is radiates to right shoulder. Aggravating factors include Sitting. Relieving factors include Pain meds/drugs. right neck pain The symptoms occ ur constantly. The location is radiates to right shoulder and arm. The context of the symptoms include worse. The symptoms are described as deep. Aggravating factors include Daily activities. Relieving factors include Nothing. bilateral neck pain The symptoms are reported as being severe. The location is radiates to right shoulder and arm. The context of the symptoms include stable. The symptoms are described as ache, throbbing. Aggravating factors include Lifting. Relieving factors include ice, pain meds. bilateral neck pain The symptoms are reported as being 10. The location is radiates to right shoulder and wrist. bilateral neck pain The symptoms are reported as being severe. The symptoms occur constantly. The symptoms are described as stabbing constant pain. Aggravating factors include Daily activities, Extension, Flexion, Rolling over in bed and Twisting. Relieving factors include Ice, Ice, Pain meds/drugs and Lying down. She states the symptoms are chronic. Right side of the neck is worse than the left side. Numbness and tingling in the right arm is ongoing. right neck pain The symptoms occ ur constantly. The location is radiates to right shoulder and arm. The context of the symptoms include worse. The symptoms are described as ache, burning, deep, sharp, shooting, throbbing. Aggravating factors include Changing positions, Daily activities, Flexion, Lifting, Lying/rest, Sitting and Standing. Relieving factors include Ice and Pain meds/drugs. right shoulder pain Location: ri ght shoulder. The pain radiates to the right wrist. bilateral neck pain The symptoms are described as ache, burning, deep, sharp, throbbing, shooting. Aggravating factors include Changing positions, Daily activities, Flexion, Lifting, Lying/rest, Sitting and Standing. Relieving factors include Ice and Pain meds/drugs. bilateral neck pain Aggravating factors include Bending, Descending stairs and Changing positions. Relieving factors include Ice, Lying down and Pain meds/drugs. bilateral neck pain The symptoms are reported as being severe. The symptoms occur constantly. The symptoms are described as ache, burning, deep, sharp, shooting, throbbing. Aggravating factors include Changing positions, Daily activities, Flexion, Lifting, Lying/rest, Sitting and Standing. Relieving factors include Ice and Pain meds/drugs. Wrist Pain Severity level i s 8. It occurs constantly and is fluctuating. Location: right wrist. The pain is aching, burning, sharp and throbbing. The pain is aggravated by lifting, sitting and standing. The pain is relieved by ice and pain/RX meds. bilateral neck pain bilateral neck pain The symptoms are reported as being severe. The symptoms occur constantly. The symptoms are described as ache, burning, deep, sharp, shooting, throbbing. Aggravating factors include Changing positions, Daily activities, Flexion, Lifting, Lying/rest, Sitting and Standing. Relieving factors include Ice and Pain meds/drugs. Pain is located in neck, right shoulder, and right wrist. bilateral neck pain The symptoms are reported as being severe. The symptoms occur constantly. The symptoms are described as ache, burning, deep, sharp, shooting, throbbing. Aggravating factors include Changing positions, Daily activities, Flexion, Lifting, Lying/rest, Sitting and Standing. Relieving factors include Ice and Pain meds/drugs. Pain radiates into right shoulder down patient's right arm, into her hand and fingers. bilateral neck pain The location is Right shoulder. The symptoms are described as ache, deep, sharp, shooting, throbbing. Aggravating factors include Changing positions, Daily activities, Flexion, Lifting, Lifting, Sitting and Standing. Relieving factors include Ice and Pain meds/drugs. bilateral neck pain The symptoms are described as ache, deep, sharp, shooting, throbbing. Aggravating factors include Changing positions, Daily activities, Flexion, Lifting, Lying/rest, Sitting and Standing. Relieving factors include Ice and Pain meds/drugs. joint pain Location: right wrist. There is no radiation. The pain is aching, sharp and throbbing. The pain is aggravated by lifting, movement, sitting and standing. The pain is relieved by ice and pain/RX meds. bilateral neck pain The symptoms are described as ache, deep, sharp, shooting, throbbing. Aggravating factors include Changing positions, Daily activities, Flexion, Lifting, Lying/rest, Sitting and Standing. Relieving factors include Ice and Pain meds/drugs. The patient state her pain radiates to her shoulders and upper arms bilaterally (R>L). The patient rates her pain at a 8/10 today. joint pain Location: right wrist. The pain is aching, sharp, throbbing, deep and shooting. The pain is aggravated by lifting, sitting, standing, changing positions, daily activities, flexion and lying/rest. The pain is relieved by ice and pain/RX meds. bilateral neck pain The symptoms are described as ache, deep, sharp, shooting, throbbing. Aggravating factors include changing positions, daily activities, flexion, lifting, lying/rest, sitting, standing. Relieving factors include ice, pain medications. The patient states her pain causes headaches and radiates to her shoulders and arms bilaterally. joint pain Location: right wrist. The pain is aching, sharp and throbbing. The pain is aggravated by lifting, sitting and standing. The pain is relieved by ice and pain/RX meds. bilateral neck pain The symptoms are described as ache, deep, sharp, shooting, throbbing. Aggravating factors include changing positions, daily activities, flexion, lifting, lying/rest, sitting, standing. Relieving factors include ice, pain medications. The patient states her pain radiates to her bilateral shoulders and right arm. joint pain Location: right wrist. The pain is aching, sharp and throbbing. The pain is aggravated by lifting, sitting and standing. The pain is relieved by ice and pain/RX meds. bilateral neck pain The location is Left rib, Wrists. Night pain. The symptoms are described as burning, aching, throbbing. Aggravating factors include Daily activities. Relieving factors include Pain meds/drugs and Rest. Abdominal pain Location is LUQ. The patient describes it as aching, sharp and throbbing. Symptom is aggravated by physical exertion, prolonged sitting and prolonged standing. Relieving factors include ice and pain medications. right hip pain Location of pain is right. The patient describes the pain as an ache, sharp, shooting, stabbing and throbbing. Symptom is aggravated by lifting weight, lying down, sitting and standing. Relieving factors include ice. Pertinent negatives include fever and joint pain. bilateral neck pain The location is posterior neck. The symptoms are described as ache, deep, sharp, shooting, throbbing. Aggravating factors include changing positions, daily activities, flexion, lifting, lying/rest, sitting , standing. Relieving factors include ice, pain medications. The patient states her pain radiates to her shoulders and arms bilaterally. bilateral neck pain The location is neck, right wrist, left side of ribs. The symptoms are described as Ache, deep, sharp, shooting, throbbing. Aggravating factors include Changing positions, Daily activities, Flexion, Lying/rest, Lifting, Sitting and Standing. Relieving factors include Ice and Pain meds/drugs. bilateral neck pain The symptoms are described as Ache, deep, sharp, shooting, throbbing. Aggravating factors include Changing positions, Daily activities, Flexion and Lifting. Relieving factors include Ice and Pain meds/drugs. joint pain Location: right wrist. bilateral neck pain The symptoms are reported as being 8. The symptoms occur constantly. The symptoms are described as aching, deep,. sharp, shooting and throbbing. Aggravating factors include Changing positions, Daily activities, Flexion, Lifting, Lying/rest, Sitting and Standing. Relieving factors include Ice and Pain meds/drugs. She states the symptoms are chronic. back pain The problem is f luctuating. It occurs persistently. Location of pain is lower back and neck. Pain is radiated to the left calf, left foot, right foot, left thigh, right thigh and shoulders matheus..The patient describes the pain as an ache, deep, sharp and throbbing. Symptoms are aggravated by changing positions, daily activities, flexion, lifting, lying/rest, sitting and standing. Symptoms are relieved by ice and pain meds/drugs. back pain Severity level i s 8. The problem is fluctuating. It occurs persistently. Location of pain is neck and right hip. Pain is radiated to the upper arms bilaterally and right>left.The patient describes the pain as an ache, deep, sharp, shooting and throbbing. Symptoms are aggravated by changing positions, daily activities, flexion, lifting, lying/rest, sitting and standing. Symptoms are relieved by ice and pain meds/drugs. bilateral neck pain The symptoms are reported as being severe. The symptoms occur constantly. The symptoms are described as ache, deep, sharp, shooting, throbbing. Aggravating factors include Changing positions, Daily activities, Flexion, Lifting, Lying/rest, Sitting and Standing. Relieving factors include Ice and Pain meds/drugs. She states the symptoms are chronic. back pain It occurs persis tently. Location of pain is neck and right wrist. Pain is radiated to the bilateral hands and fingers.The patient describes the pain as an ache, deep, sharp, shooting and throbbing. Symptoms are aggravated by changing positions, daily activities, flexion, lifting, lying/rest, sitting and standing. Symptoms are relieved by ice and pain meds/drugs. Neck Pain The problem is s evere. The problem has not changed. The frequency of pain is constant. Location of pain is bilateral posterior neck. The patient describes the pain as Gnawing, Stabbing, Throbbing and electrical. Aggravating factors include bending, driving, lifting, lying down and reaching and gripping. Relieving factors include ice, narcotic analgesics, rest and sitting. Pertinent negatives include bladder incontinence, bowel incontinence, dysphagia, joint pain, rash and sexual dysfunction. bilateral neck pain The symptoms are reported as being 7. The symptoms occur constantly. The symptoms are described as sharp. Aggravating factors include getting out of bed, resting, gripping objects, computer work, sitting, flexion/extension, lifting, lying down, pushing, bending, daily/household duty. Relieving factors include Ice and Pain meds/drugs. She states the symptoms are chronic. bilateral wrist pain Severity le tosha is 7. It occurs constantly. Location: bilateral wrist. There is no radiation. The pain is sharp. The pain is aggravated by lifting, pushing, standing up, gripping and computer work and pulling. The pain is relieved by ice and pain/RX meds. Functional Status Date Functional Assessmen t Pain Score 6/10 Instructions Date Instruction Additional Infor theo Medications: - Campbell nue Buprenorphine 2mg 2 tabs up to 3x/day* Call [facility] to refill this medication before 04/05/24 if you have not been able to get this filled by [facility] by then- Refill and continue Tizanidine 4mg up to 3x/day as needed, #90 for 30 days, for fill today 03/11/24- Continue Lidocaine 4% patchesAppointments: - Keep 05/24/2024 appointment with [facility]- Follow up with [facility] as scheduled- Follow up with physician occupational therapist's assistant or nurse practitioner as needed, [place]health [place] Related to Complex regional pain syndrome 2 of rt upper limb Giving encouragement to exercise Related to Body mass index [BMI] 27.0-27.9, adult - Refill and continu e Buprenorphine 2mg 2 tabs up to 3x/day, #180 for 30 days, 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, to start on 03/08/24- Continue Tizanidine 4mg up to 3x/day as needed, refill waiting at pharmacy - Continue Lidocaine 4% patches- Keep 03/03/2024 appointment with [facility] - Keep 05/24/2024 appointment with [facility]- Follow up with physician occupational therapist's assistant or nurse practitioner as needed, [place]health [place] Related to Complex regional pain syndrome 2 of rt upper limb Hypertension education Related t o Elevated blood-pressure reading, w/o diagnosis of htn Giving encouragement to exercise Related to Body mass index [BMI] 27.0-27.9, adult - Refill and continu e Buprenorphine 2mg 2 tabs up to 3x/day, for fill 02/08/24- Continue Tizanidine 4mg up to 3x/day as needed, refill waiting at pharmacy - Continue Lidocaine 4% patches- Follow up with [facility] to assume care for pain medication management- Follow up with physician occupational therapist's assistant or nurse practitioner in one month, in CLINIC if needing refill before [place] appointment Related to Complex regional pain syndrome 2 of rt upper limb Lifestyle education regarding di et Related to Body mass index [BMI] 28.0-28.9, adult - Refill and continu e Buprenorphine 2mg 2 tabs up to 3x/day, for fill 01/09/24- Continue Tizanidine 4mg up to 3x/day as needed, refill waiting at pharmacy - Continue Lidocaine 4% patches- Referral sent to [facility] to assume care for pain medication management- Follow up with physician occupational therapist's assistant or nurse practitioner in one month, in clinic Related to Complex regional pain syndrome 2 of rt upper limb Giving encouragement to exercise Related to Body mass index [BMI] 28.0-28.9, adult - Refill and continu e Buprenorphine 2mg 2 tabs up to 3x/day, for fill today 11/15/23- Continue Tizanidine 4mg up to 3x/day as needed, refill waiting at pharmacy - Continue Lidocaine 4% patches- Referral sent to [facility] for pain medication management Related to Complex regional pain syndrome 2 of rt upper limb Giving encouragement to exercise Related to Body mass index [BMI] 28.0-28.9, adult - Follow up with Dr. Monica Snell at [facility] for right shoulder - Reschedule right shoulder joint injection*Call [phone] to schedule Related to Pain in right shoulder - Nice to talk with you. Sorry you aren't feeling well. Glad to hear you are seeing your doctor today. - Refill and continue Buprenorphine 2mg 2 tabs up to 3x/day, for fill today 10/18/23 to start tomorrow 10/19/23. Let us know if Dr. Dill is going to take over your medication or if you need a referral from us for the clinic in [place] - Continue Tizanidine 4mg up to 3x/day as needed, refill waiting at pharmacy - Continue Lidocaine 4% patches- Follow up with [facility] as needed Related to Complex regional pain syndrome 2 of rt upper limb Giving encouragement to exercise Related to Body mass index [BMI] 28.0-28.9, adult - Reschedule left hip joint inje ction Related to Pain in left hip - Refill and continu e Buprenorphine 2mg 5x/day, for fill 09/18- Continue Tizanidine 4mg up to TID as needed- Continue Lidocaine 4% patches- Follow up to [facility] for medication management if PCP does not take over- Follow up in one month with [facility] if needed Related to Complex regional pain syndrome 2 of rt upper limb - Follow up with Dr. Monica Snell at [facility] for right shoulder - Reschedule right shoulder joint injection on 08/16 Related to Pain in right shoulder Giving encouragement to exercise Related to Body mass index [BMI] 28.0-28.9, adult - Follow up with Dr. Monica Snell at [facility] for right shoulder - Complete right shoulder joint injection on 08/16 Related to Pain in right shoulder - Refill and continu e Buprenorphine 2mg 5x/day, for fill 08/09- Continue Tizanidine 4mg up to TID. - Continue Lidocaine 4% patches- Follow up in one month with [facility] Related to Complex regional pain syndrome 2 of rt upper limb - Complete left hip joint injection on 08/23 Related to Pain in left hip Giving encouragement to exercise Related to Body mass index [BMI] 28.0-28.9, adult - Order left hip joint injection Related to Pain in left hip - Refill and continu e Buprenorphine 2mg 5x/day, for fill 07/11- Continue Tizanidine 4mg up to TID. - Continue Lidocaine 4% patches- Toradol injection today- Follow up in one month with [facility] or with [facility] for medication management Related to Complex regional pain syndrome 2 of rt upper limb - Follow up with Dr. Monica Snell at [facility] for right shoulder - Order right shoulder joint injection Related to Pain in right shoulder Giving encouragement to exercise Related to Body mass index [BMI] 28.0-28.9, adult - Follow up with Dr. Monica Snell at [facility] for right shoulder Related to Pain in right shoulder - Refill and continu e Buprenorphine 2mg 5x/day, for fill 06/11- Continue Tizanidine 4mg up to TID. - Continue Lidocaine 4% patches- Toradol injection today- Follow up in one month with [facility] or with [facility] for medication management Related to Complex regional pain syndrome 2 of rt upper limb Giving encouragement to exercise Related to Body mass index [BMI] 29.0-29.9, adult - Refill and continu e Buprenorphine 2mg 5x/day, for fill early on 05/10- Continue Tizanidine 4mg up to TID. - Continue Lidocaine 4% patches- Toradol injection today- Follow up in one month with [facility] or with [facility] for medication management Related to Complex regional pain syndrome 2 of rt upper limb Giving encouragement to exercise Related to Body mass index [BMI] 29.0-29.9, adult - Refill and continu e Buprenorphine 2mg 5x/day, for fill early on 04/09- Continue Tizanidine 4mg up to TID. - Continue Lidocaine 4% patches- Follow up in one month with [facility] or with [facility] for medication management Related to Complex regional pain syndrome 2 of rt upper limb Giving encouragement to exercise Related to Body mass index [BMI] 29.0-29.9, adult - Refill and continu e Buprenorphine 2mg 5x/day, for fill on 03/13- Prescribed Tizanidine 4mg up to TID. - Continue Lidocaine 4% patches- Follow up in one month with [facility] or with [facility] for medication management Related to Complex regional pain syndrome 2 of rt upper limb Giving encouragement to exercise Related to Body mass index [BMI] 29.0-29.9, adult - Refill and continu e Methocarbamol 500mg 2x/day- Refill and continue Buprenorphine 2mg 5x/day, for fill on 02/07 to start on 02/11- Continue Lidocaine 4% patches- Follow up in one month with [facility] for pain medication management Related to Complex regional pain syndrome 2 of rt upper limb Giving encouragement to exercise Related to Body mass index [BMI] 31.0-31.9, adult - Refill and continu e Methocarbamol 500mg 2x/day- Refill and continue Buprenorphine 2mg 5x/day, for fill 01/11- Continue Lidocaine 4% patches- Toradol injection today- Consider additional pain clinic for medication management- Follow up in one month with [facility] in 4 week Related to Complex regional pain syndrome 2 of rt upper limb Giving encouragement to exercise Related to Body mass index [BMI] 31.0-31.9, adult - Refill and continu e Methocarbamol 500mg 2x/day- Continue and increase Buprenorphine 2mg 5x/day, for fill 12/14- Continue Lidocaine 4% patches- Consider additional pain clinic for medication management- Follow up in one month with [facility] in 4 week Related to Complex regional pain syndrome 2 of rt upper limb - Refill and continu e Methocarbamol 500mg 2x/day- Continue Buprenorphine 2mg 4x/day, for fill today, 11/14- Continue Lidocaine 4% patches- Follow up in one month with [facility] in 4 week Related to Complex regional pain syndrome 2 of rt upper limb Giving encouragement to exercise Related to Body mass index [BMI] 31.0-31.9, adult same Related to Postl aminectomy syndrome, not elsewhere classified Follow up in the clinic in 2-3 w eeks Related to Radiculopathy, cervical region - Refill and continu e Methocarbamol 500mg 2x/day- Continue Buprenorphine 2mg 4x/day for fill 10/12- Continue Lidocaine 4% patches- Cervical epidural steroid injection at [facility] today- Follow up in one month with [facility] in 4 week Related to Complex regional pain syndrome 2 of rt upper limb Giving encouragement to exercise Related to Body mass index [BMI] 29.0-29.9, adult - Refill and continu e Methocarbamol 500mg 2x/day- Continue Buprenorphine 2mg 4x/day for fill 09/13- Continue Lidocaine 4% patches-Schedule cervical epidural steroid injection at [facility], schedule same day as next [facility] apt.*discuss with doctor to hold plavix*- Follow up in one month with [facility] in 4 weeks, schedule epidural at the same time as [facility] apt. Related to Complex regional pain syndrome 2 of rt upper limb Giving encouragement to exercise Related to Body mass index [BMI] 30.0-30.9, adult - Refill and continu e Methocarbamol 500mg 2x/day- Continue Buprenorphine 2mg 4x/day for fill 08/12- Continue Lidocaine 4% patches-Schedule cervical epidural steroid injection at [facility], schedule same day as next [facility].*discuss with doctor to hold plavix*- Follow up in one month with [facility] in 4 weeks, schedule epidural at the same time as [facility] apt. Related to Complex regional pain syndrome 2 of rt upper limb Giving encouragement to exercise Related to Body mass index [BMI] 31.0-31.9, adult - Continue Percocet 7.5-325mg up to 3x/day, taper to 2/day for a week and then 1/day for a week, then to 1/2 tablet- Refill and continue Methocarbamol 500mg 2x/day- Continue Buprenorphine 2mg 4x/day. - Continue Lidocaine 4% patches-Schedule cervical epidural steroid injection at [facility], schedule same day as next [facility].*discuss with doctor to hold plavix*- Follow up in one month with [facility] in 4 weeks, schedule epidural at the same time as [facility] apt. Related to Complex regional pain syndrome 2 of rt upper limb Giving encouragement to exercise Related to Body mass index [BMI] 33.0-33.9, adult - Refill and continu e Percocet 7.5-325mg up to 3x/day. Fill on 06/23/22- Refill and continue Methocarbamol 500mg 2x/day- Refill and increase Buprenorphine 2mg 4x/day. Fill on 06/15/22- Continue Lidocaine 4% patches-Order cervical epidural steroid injection at [facility], schedule same day as next [facility] apt.- Follow up in one month with [facility] in 4 weeks, schedule epidural at the same time as [facility] apt. Will discuss with Dr. Espinoza or Dr. Yaw Arana regarding IT pain pump procedure Related to Complex regional pain syndrome 2 of rt upper limb Giving encouragement to exercise Related to Body mass index [BMI] 31.0-31.9, adult Same plan of care as statement for above diagnosis, no changes Related to Pain in unspecified shoulder - Refill and continu e Percocet 7.5-325mg up to 3x/day. Fill on 05/24/22- Refill and continue Methocarbamol 500mg 2x/day- Refill and continue Buprenorphine 2mg 3x/day. Fill on 05/16/22- Continue Lidocaine 4% patches- Prescribe Valium 2-tabs for MRI appointment do not take Valium and Xanax together- Follow up in one month with [facility] or after MRI is completed Meet with Dr. Espinoza or Dr. Yaw Arana at next visit regarding IT pain pump procedure Related to Complex regional pain syndrome 2 of rt upper limb Lifestyle education regarding di et Related to Body mass index [BMI] 31.0-31.9, adult - Schedule cervical MRI as previously ordered at [facility] - Refill and continue Percocet 7.5mg up to 3x/day for fill 04/25/22- Refill and continue buprenorphine - Continue Methocarbamol 500mg 2x/day. no script today- Obtain medical records [facility] [place] - Consider intrathecal pain pump - Refill and continue Buprenorphine 2mg, increased to 3x/day #1 in the morning and #2 at night for fill today- Follow up in one month with [facility] Related to Complex regional pain syndrome 2 of rt upper limb Giving encouragement to exercise Related to Body mass index [BMI] 31.0-31.9, adult Giving encouragement to exercise Related to Body mass index [BMI] 31.0-31.9, adult Giving encouragement to exercise Related to Body mass index [BMI] 31.0-31.9, adult Same plan of care as statement for above diagnosis, no changes Related to Pain in right shoulder - Schedule cervical MRI as previously ordered at [facility] - Refill and continue Percocet 7.5mg up to 3x/day for fill 03/25/22- Stop MSER - Continue Methocarbamol 500mg 2x/day. no script today- Obtain medical records including imaging reports from [facility] Dr. Warren Velázquez- Consider intrathecal pain pump - Refill and increase Buprenorphine 2mg, increased to 3x/day #1 in the morning and #2 at night for fill 03/20/22- Follow up in one month with [facility] Related to Complex regional pain syndrome 2 of rt upper limb Lifestyle education regarding di et Related to Body mass index [BMI] 32.0-32.9, adult Same plan of care as statement for above diagnosis, no changes Related to Neuralgia and neuritis, unspecified -Follow up in the clinic Related to Complex regional pain syndrome 2 of right upper limb - Order lumbar MRI a t [facility] - Order stationary neutral A/P and lateral views x rays at [facility]- Order lateral flexion vs extension x ray of the lumbar spine at [facility] Related to Low back pain, unspecified - Will have case man ager call patient to coordinate stellate ganglion block- Will need to hold blood thinner a few days prior - ordered cervical MRI at [facility] - Refill and continue Percocet 7.5mg up to 3x/day - Refill and continue MSER 15mg 2x/day, for fill on 03/08 - Continue Methocarbamol 500mg 2x/day - Continue Buprenorphine 2mg, increased to 2x/day - Follow up with Dr. Yaw Arana in one month Related to Complex regional pain syndrome 2 of right upper limb Same plan of care as statement for above diagnosis, no changes Related to Radiculopathy, cervical region Lifestyle education regarding di et Related to Body mass index [BMI] 32.0-32.9, adult -Schedule lumbar chiara ging at [facility]. Orders placed previously. Related to Low back pain, unspecified -Reschedule Stellate ganglion nerve block The risks and benefits of the procedure will be reviewed with the physician on the day of the procedure. Related to Complex regional pain syndrome 2 of right upper limb Same plan of care as statement for above diagnosis, no changes Related to Pain in right shoulder -Continue Percocet 7 .5-325mg, up to 3x/day as needed for severe pain, for fill 6/2-Continue MSER 15mg 2x/day, for fill 02/07-Decrease Buprenorphine 2mg to 1x/day, for fill 02/01-Continue Methocarbamol 750mg 2x/day as needed -Continue Lidocaine 4% patch-Schedule cervical MRI at [facility]-Follow up with [facility] in one month Related to Spondylosis w/o myelopathy or radiculopathy, cervical region Giving encouragement to exercise Related to Body mass index [BMI] 32.0-32.9, adult -Reschedule Stellate ganglion nerve block with sedation when able to within the next 1-2 months Related to Complex regional pain syndrome 2 of right upper limb -Schedule lumbar chiara ging at [facility]. Orders placed previously. Related to Low back pain, unspecified Same plan of care as statement for above diagnosis, no changes Related to Pain in right shoulder -Continue Percocet 7 .5-325mg, up to 3x/day as needed for severe pain, for fill 6/2-Continue Oxycontin 10mg 2x/day-Once finished with oxycontin 10mg 2x/day, switch to morphine 15mg 2x/day for fill 5/16-Continue and decrease Buprenorphine to 2mg 2x/day, for fill 5/8-Increase Methocarbamol to 750mg 2x/day as needed -Continue Lidocaine 4% patch-Toradol injection today-Prescribed Medrol dose pack to take as needed-Fax records from Dr. Verduzco with [facility] to [facility] Medical Records at [phone]-Schedule cervical MRI at [facility]-Follow up with [facility] in one month Related to Spondylosis w/o myelopathy or radiculopathy, cervical region Giving encouragement to exercise Related to Body mass index [BMI] 32.0-32.9, adult Follow up in the cli [facility] as needed.Follow up for the right suprascapular RFA in 1-2 weeks if pain relief of more than 80%. Related to Pain in right shoulder same Related to Neura lgia and neuritis, unspecified -Schedule lumbar chiara ging at [facility] in [place]. Orders placed last visit. Related to Low back pain, unspecified -Continue Percocet 7 .5-325mg, up to 3x/day as needed for severe pain, for fill 5/3-Continue Oxycontin 10mg 2x/day, for fill 4/16-Continue Buprenorphine 2mg 3x/day, for fill 4/8-Continue Methocarbamol 500mg 2x/day as needed -Continue Lidocaine 4% patch-Schedule cervical MRI at [facility]-Follow up with [facility] in one month Related to Spondylosis w/o myelopathy or radiculopathy, cervical region -Stellate ganglion n erve block today The risks and benefits of the procedure will be reviewed with the physician on the day of the procedure. Related to Complex regional pain syndrome 2 of right upper limb Dietary needs education Related to Body mass index [BMI] 31.0-31.9, adult Giving encouragement to exercise Related to Body mass index [BMI] 31.0-31.9, adult -Schedule stellate g anglion nerve block The risks and benefits of the procedure will be reviewed with the physician on the day of the procedure. Related to Complex regional pain syndrome 2 of right upper limb -Continue Percocet 7 .5-325mg, up to 3x/day as needed for severe pain, for fill 4/3-Continue Oxycontin 10mg 2x/day, for fill 3/-Continue Buprenorphine 2mg 3x/day, for fill today-Continue Methocarbamol 500mg 2x/day as needed -Continue Lidocaine 4% patch-Order MRI of the cervical spine at [facility] in [place] -Follow up with [facility] in one month Related to Spondylosis w/o myelopathy or radiculopathy, cervical region -Order MRI of the tico mbar spine at [facility] in [place] -Order stationary neutral A/P and lateral views x rays at [facility] in [place]-Order lateral flexion vs extension x ray of the lumbar spine at [facility] in [place] Related to Low back pain, unspecified Giving encouragement to exercise Related to Body mass index [BMI] 34.0-34.9, adult Dietary needs education Related to Body mass index [BMI] 34.0-34.9, adult -Continue Percocet 7 .5-325mg, up to 3x/day as needed for severe pain, for fill 3/4-Continue Oxycontin 10mg, 2x/day as prescribed, for fill 2/12-Continue Buprenorphine 2mg 3x/day, for fill 2/12-Continue Methocarbamol 500mg 2x/day as needed -Prescribe Lidocaine 4% patch-JUAN CARLOS for [facility] at [facility] (Dr. Villar)-Order MRI [facility] cervical spine at [facility] in [place] -Follow up with [facility] in one month Related to Spondylosis w/o myelopathy or radiculopathy, cervical region -Order MRI of the tico mbar spine at [facility] in [place] -Order stationary neutral A/P and lateral views x rays at [facility] in [place]-Order lateral flexion vs extension x ray of the lumbar spine at [facility] in [place] Related to Low back pain, unspecified -Schedule stellate g anglion nerve block The risks and benefits of the procedure will be reviewed with the physician on the day of the procedure. Related to Complex regional pain syndrome 2 of right upper limb Giving encouragement to exercise Related to Body mass index [BMI] 34.0-34.9, adult Dietary needs education Related to Body mass index [BMI] 34.0-34.9, adult -Refill and continue Percocet 7.5-325mg, up to 3x/day as needed for severe pain, for fill on 09/27/21-Refill and continue Oxycontin 10mg, 2x/day as prescribed, for fill on 09/07/21-Refill and continue Buprenorphine 2mg 3x/day as prescribed-Continue Methocarbamol 500mg 2x/day as needed -Try alternating between ice and heat-Discuss stellate ganglion nerve block with top and seat cover fitter, schedule when able -Follow up with [facility] in one month The risks and benefits of the procedure will be reviewed with the physician on the day of the procedure. Related to Spondylosis w/o myelopathy or radiculopathy, cervical region Same plan of care as statement for above diagnosis, no changes Related to Complex regional pain syndrome 2 of right upper limb Same plan of care as statement for above diagnosis, no changes Related to intermediate (current) use of opiate analgesic Same plan of care as statement for above diagnosis, no changes Related to Pain in left hip Same plan of care as statement for above diagnosis, no changes Related to Low back pain, unspecified Same plan of care as statement for above diagnosis, no changes Related to Pain in unspecified shoulder Same plan of care as statement for above diagnosis, no changes Related to Spondylosis w/o myelopathy or radiculopathy, cervical region - Schedule for gladis ate gangling nerve block if patient clears with top and seat cover fitter to hold off Plavix- Refill and continue Percocet 7.5-325mg, up to 3x/day for fill on 08/28/21- Refill and continue Oxycontin 10mg, 2x/day, for fill on 08/08- Stop taking Tizanidine and start Methocarbamol 500 mg 2x/day, will prescribe Methocarbamol today - Stop taking Belbuca and start Buprenorphine 2 mg 2x/day, will prescribe Buprenorphine today -Follow up with [facility] in 4 weeks The risks and benefits of the procedure will be reviewed with the physician on the day of the procedure. Related to Complex regional pain syndrome 2 of right upper limb Same plan of care as statement for above diagnosis, no changes Related to Pain in knee Prescribed activity/ exercise education Related to Body mass index [BMI] 34.0-34.9, adult Dietary needs education Related to Body mass index [BMI] 34.0-34.9, adult -Continue with cardi ologist follow up for possibility to hold off Plavix,, discuss bridge with Lovenox if needed-Schedule for stellate gangling nerve block if patient clears with top and seat cover fitter to hold off Plavix-Refill and continue Percocet 7.5-325mg, up to 3x/day as prescribed, for fill on 07/29/2021-Refill and continue Oxycontin 10mg, 2x/day, for fill on 07/08/2021-Continue Tizanidine 4mg as prescribed, refill at pharmacy -Prescribe Belbuca 75mcg, 2x/day, for fill today, 07/05/2021-Follow up with [facility] in 4 weeks Related 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 Related to Pain in right shoulder Same plan of care as statement for above diagnosis, no changes Related to Pain in right shoulder Same plan of care as statement for above diagnosis, no changes Related to Cervicalgia Same plan of care as statement for above diagnosis, no changes Related to Radiculopathy, cervical region - refill Tizanidine 4mg 2x/day - call to schedule with top and seat cover fitter to discuss about temporary holding Plavix for the stellate ganglion nerve block - follow up with [facility] on 07/05 Related to Complex regional pain syndrome 2 of right upper limb Same plan of care as statement for above diagnosis, no changes Related to Pain in right shoulder - Continue Percocet 7.5-325mg up to 3x/day, fill 06/29- Continue Tizanidine 4mg 1x/day- Continue Oxycontin 10mg 2x/day, fill 06/09- Discontinue Lyrica 75mg BID- Schedule right stellate ganglion block- Follow up with top and seat cover fitter to discuss Plavix hold- Continue physical therapy and behavioral health per [facility]- Return to the clinic with [facility] in 4 weeks Related to Complex regional pain syndrome 2 of right upper limb Same plan of care as statement for above diagnosis, no changes Related to Cervicalgia Same plan of care as statement for above diagnosis, no changes Related to Radiculopathy, cervical region Giving encouragement to exercise Related to Body mass index [BMI] 34.0-34.9, adult Dietary needs education Related to Body mass index [BMI] 34.0-34.9, adult Same plan of care as statement for above diagnosis, no changes Related to Complex regional pain syndrome 2 of right upper limb -Schedule spinal sti mulator trial once able toThe risks and benefits of the procedure will be reviewed with the physician on the day of the procedure. Related to Cervicalgia Same plan of care as statement for above diagnosis, no changes Related to Radiculopathy, cervical region - Continue Percocet 7.5-325mg, up to 3x/day, fill 05/30- Continue Tizanidine 4mg 1x/day- Continue Oxycontin 10mg 2x/day, fill today- Prescribe Lyrica 75mg BID- Order right stellate ganglion block- Toradol injection today- Continue physical therapy and behavioral health per [facility]- Continue to follow up with your surgeon as recommended for shoulder pain. - Return to the clinic with [facility] in 4 weeks Related to Pain in right shoulder - Request records [facility] Dr. Cochran Related to Cardiac, heart or myocardial failure NOS - Continue Percocet 7.5-325mg, up to 3x/day fill 04/30- Continue Tizanidine 4mg 1x/day- Continue Oxycontin 10mg 2x/day fill 04/06- Continue physical therapy and behavioral health per [facility]- Continue to follow up with your surgeon as recommended for shoulder pain. - Return to the clinic with [facility] in 4 weeks Related to Pain in right shoulder -Schedule neurostimu lation trial once able toThe risks and benefits of the procedure will be reviewed with the physician on the day of the procedure. Related to Cervicalgia Same plan of care as statement for above diagnosis, no changes Related to Radiculopathy, cervical region -Schedule neurostimu lation trial with implant team today. -Complete BH implant eval today- Toradol 60 mg IM today due to increased pain ( Right Buttock) The risks and benefits of the procedure will be reviewed with the physician on the day of the procedure. Related to Cervicalgia - Refill and continu e Percocet 7.5-325mg, up to 3x/day- Continue Tizanidine 4mg 1x/day- Refill and continue Oxycontin 10mg 2x/day- Continue PT and BH per [facility]- Continue to follow up with your surgeon as recommended for shoulder pain. - Return to the clinic with [facility] in 4 weeks Related to Pain in right shoulder -Schedule neurostimu lation trial when able-Complete BH implant eval The risks and benefits of the procedure will be reviewed with the physician on the day of the procedure. Related to Cervicalgia Same plan of care as statement for above diagnosis, no changes Related to Radiculopathy, cervical region - Order Toradol 60 m g as a single dose IM today. -Refill Percocet 7.5-325mg, up to 3x/day-Continue Tizanidine 4mg 1x/day-Refill Oxycontin 10mg 2x/day-Continue PT and BH per [facility]- Follow up with your surgeon as recommended for shoulder pain. -Return to the clinic with [facility] in 4 weeks Related to Pain in right shoulder Same plan of care as statement for above diagnosis, no changes Related to Radiculopathy, cervical region -Schedule neurostimu lation trial when ableGive literature on SCS device-Schedule implant eval The risks and benefits of the procedure will be reviewed with the physician on the day of the procedure. Related to Cervicalgia -Refill Percocet 7.5 -325mg, up to 3x/day-Continue Tizanidine 4mg 1x/day-Refill Oxycontin 10mg 2x/day-Continue PT and BH per [facility]-Return with [facility] in 4 weeks Related to Pain in right shoulder -Refill Percocet 7.5 -325mg, up to 3x/day-Refill Tizanidine 4mg 1x/day-Refill Oxycontin 10mg 2x/day-Return with [facility] in 4 weeks Related to Pain in right shoulder Same plan of care as statement for above diagnosis, no changes Related to Radiculopathy, cervical region -Refill Percocet 7.5 -325mg, up to 3x/day-Refill Tizanidine 4mg 1x/day-Refill O xycontin 10mg 2x/nza-Ubpuyi-uv with surgeon-Return with [facility] in 4 weeks Related to Cervicalgia Same plan of care as statement for above diagnosis, no changes Related to Radiculopathy, cervical region -Refill and increase Tizanidine 4mg 1x/day, take at bedtime-Prescribe Oxycontin 10mg 2x/day-Refill and decrease Percocet 7.5-325mg, up to 3x/day-Will decrease Percocet to 5mg at time of next appointment-PA for neurostimulation trial-Refer to PT, coordinate with trial-Refer to BH, coordinate with trial-Allow at least 4-6 hours between taking Clonazepam and taking other opioid [id number]-Kvekeo-gc with Dr. Esposito at [facility]-Return with [facility] in 4 weeks Related to Cervicalgia -Keep MBB appt The r isks and benefits of the procedure will be reviewed with the physician on the day of the procedure. Related to Cervicalgia -JUAN CARLOS [place]-JUAN CARLOS for Isabel Jiménez Psy.D-Refill Butrans 10mcg/hr patch -Refill Percocet 7.5-325mg, up to 5x/day-Prescribe Tizanidine 2mg 1x/day-Return with [facility] in 4 weeks*UDT today Related to Pain in right wrist - Follow up in 1-2 w eeks for CMBB-C at right C3,4,5,6. 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 Sent referral to [facility], however, she has been unable to schedule until April 2024. At last visit sent referral to [facility] and [facility]. She reports she has an appointment on 05/24/2024 but is reaching out to other clinics for a sooner appointment if possible.Patient also had an appointment with [facility] on 03/03/2024. She states they want her records from [facility] before moving forward with taking over any medications. Informed patient that I will off of filling her buprenorphine today and advised her to call [facility] before 04/05/24 to have her buprenorphine refilled if she has not heard back from [facility] by then. Patient understood.Sent records to [facility] today.Patient reports that she received a shoulder injection on 02/02/[address] Snell at [facility]. She states today that she was told she needs a right shoulder replacement by [facility]. That will be in the future some time. She was prescribed Percocet 5-325mg #[address] Snell for post-op pain. This Rx was picked up on 02/03/24Patient received a 30mg intramuscular Toradol injection for her neck on 02/10/24. The patient is currently prescribed tizanidine 4mg up to TID, Buprenorphine 2mg 2 tabs up to 3x/day, and Lidocaine 4% patches. Denies side effects. Refilled Tizanidine with no changes. Per previous note: Previously discussed SCS trial with the patient. She was very opposed to the SCS trial and is scared to have the implant. Per case review on 06/20 recommended against IT pain pump due to patient's other health conditions and her respiratory drive being very sensitive to opioidsShe is currently on 1 liter of oxygen due to recovering from long Covid. assessment Body mass index [BMI] 27.0-27.9, adult assessment Radiculopathy, cervical region J assessment Chronic pain syndrome Mental Status Date Cognitive Assessment Orientation - Belden ed to time, place, person, situation. Patient Care Teams Name Effective Dates (start - stop) Status Members No Information
--- OUTSIDE RECORDS SUMMARY | 2024-11-23 13:03 | XMS_ITS | Encounter Summary ---
Author Organization [facility] er Address [address] [place] [id number] Care Team Providers Care Blood Bank Business Manager Name Role Phone Nicolás Tyler MD Primary Care Provider [phone] Encounter Details Date Type Department Care Team (Late st Contact Info) Description 11/17/2024 3:30 PM CDT Lab [place] [address] [place] [address] Social History Tobacco Use Types Packs/Day Years [...] from your doctor or pharmacy? Never 11/17/2024 [facility] Utilities Answer Date Recorded In the past 12 months has [facility] [employer], gas, oil, or water [employer] threatened to shut off services in your [...] often do you attend chur ch or amish services? More than 4 times per year 11/17/2024 Do you belong to any clubs o r organizations such as methodist groups, unions, fraternal or athletic groups, or [...] Date Recorded PHQ-9 Total Score 6 [facility] Answer Date [...] any time in the past 12 m [facility], were you homeless or living in a custodial (including now)? No 11/17/2024 Interpersonal Safety Questionnaire [...] on file documented as of this encounter Plan of Treatment Upcoming Encounters Date Type Department Care Team (Late st Contact Info) Description 01/26/2025 1:00 PM CDT Office Visit [place] [address] [facility] [address] [place] [address] 02/17/2025 2:20 PM CDT Office Visit [place] [id number] [facility] [address] [place] [address] Nicolás Tyler MD [address] [place] [address] 02/18/2025 1:20 PM CDT Office Visit [place] [address] [facility] [address] [place] [address] Jose Lincoln MD [address] [place] [phone] documented as of this encounter Visit Diagnoses Not on filedocumented in this encounter Additional Health Concerns Infection Onset Date Last Indicated Resolved Time COVID-19 Rule Out 11/17/2024 11/17/2024 11/17/2024 3:34 PM CDT documented as of this encounter Care Teams Blood Bank Business Manager Relationship Specialty Start Date End Date Nicolás Tyler MD [address] [facility] [address] [place] [address] PCP - General Family Medicine 10/08/24 Dr Esposito Consulting Physician 01/26/20 [facility] Consulting Physician Neurology 01/26/20 documented as of this encounter
--- OUTSIDE RECORDS SUMMARY | 2024-11-23 13:04 | XMS_ITS | Clinical Summary ---
Author Organization [facility] [facility] Address [facility] [place] [address] Care Team Providers Care Video Control Engineer Name Role Phone Moreno Dill MD Primary Care Provider Allergies Active Allergy Reactions Criticality Noted Date Comments Atorvastatin Myalgia,Other - Describe In Comment Field Medium 09/18/2016 Myalgia Buspirone Other - Describe In Comment Field,Rash High 07/24/2019 Possible cause of rash Fentanyl Other - Describe In Comment Field,Respiratory [...] out Medications aspirin chewable 81 mg chewable tabletIndication s:CAD in match[place] artery Chew 1 Tablet (81 mg) by mouth once daily with a meal. 0 Active naloxone (NARCAN) 4 mg/actuation nasal spray if needed Active sennosides-docus ate, 8.6-50 mg, (SENOKOT S) 8.6-50 mg tabletIndication s:Uncomplicated opioid dependence (HC) Take 2 Tablets by mouth 2 times daily. 360 Tablet 3 021 Active Additional Information Patient taking differently:2 Tablet OralBEDTIME, Informant: Patient's Recall, Reported on 09/29/2024 sodium chloride (OCEAN) 0.65 % nasal solutionIndicati ons:Acute on chronic systolic CHF (congestive heart failure) (HC) Inhale 2 Sprays into affected nostril(s) every 2 hours. 44 mL 10/11/19 22 10:32 AM HAND FLATWORK FINISHER Active Additional Information Patient taking differently:2 Patterson NasalBID PRN, Informant: Patient's Recall, Reported on 09/29/2024 oxygen-air delivery systems (HOME OXYGEN)Indicatio ns:COPD exacerbation (HC),Acute on chronic heart failure with preserved ejection fraction (HC) Oxygen for home use. Liters per minute: 3 per nasal cannula. Frequency of use: Continuous with portability.;. Length of need: 99 Months. 1 Each 022 Active Walker - 4 wheelsIndication s:Unstable gait For home use. Length of need: 99. With seat. 1 Each 022 Active methocarbamoL (ROBAXIN) 750 mg tablet Take 750 mg by mouth at bedtime. 1 tablet a bedtime 023 Active CPAPIndications: SOCORRO (obstructive sleep apnea) CPAP machine for home use at pressure 10 cmw, nasal mask x1/3month with nasal cushion x2/mo 024 Active prazosin (MINIPRESS) 2 mg capsuleIndicatio ns:Nightmares Take 3 Capsules (6 mg) by mouth at bedtime. 90 Capsule 2 024 Active calcium citrate-vitamin d 315 mg-200 unit 315 mg-5 mcg (200 unit) tablet Take 1 Tablet by mouth at bedtime. Active tiZANidine (ZANAFLEX) 4 mg tablet Take 4 mg by mouth every 6 hours if needed for Muscle Spasm. Active topiramate (TOPAMAX) 25 mg tablet Take 25 mg by mouth once daily. Active evolocumab (Repatha SureClick) 140 mg/mL subcutaneous pen injectorIndicati ons:Hyperlipidem ia, unspecified hyperlipidemia type Inject 1 mL (140 mg) subcutaneous every 2 weeks. Inject into abdomen, thigh, or upper arm; rotate injection sites. 6 mL Active blood sugar diagnostic stripIndications :Type 2 diabetes mellitus with other circulatory complication, without long-term current use of insulin (HC) As directed. 100 Each Active cetirizine (ZYRTEC) 10 mg tabletIndication s:Allergy, sequela Take 1 Tablet (10 mg) by mouth once daily if needed for Allergy Symptoms. 90 Tablet 3 Active clopidogreL (PLAVIX) 75 mg tabletIndication s:Coronary artery disease, unspecified vessel or lesion type, unspecified whether angina present, unspecified whether [place] or transplanted heart Take 1 Tablet (75 mg) by mouth once daily in the morning. 90 Tablet 3 Active magnesium oxide (MAG-OX 400) 400 mg tabletIndication s:Low magnesium level Take 1 Tablet (400 mg) by mouth once daily. 90 Tablet 3 Active mirtazapine (REMERON) 45 mg tabletIndication s:Psychophysiolo gical insomnia,Posttra umatic stress disorder Take 1 Tablet (45 mg) by mouth at bedtime. 90 Tablet Active nitroglycerin (NITROSTAT) 0.4 mg sublingual tabletIndication s:CAD in [place] artery Place 1 Tablet (0.4 mg) under the tongue every 5 minutes if needed for Chest Pain. 25 Tablet 2 Active omeprazole 20 mg tabletIndication s:Chronic GERD Take 1 Tablet (20 mg) by mouth once daily before a meal. 90 Tablet 2 Active ondansetron (ZOFRAN) 4 mg tabletIndication s:Nausea Take 1 Tablet (4 mg) by mouth every 8 hours if needed for Nausea/Vomitin g. 30 Tablet 1 Active torsemide (DEMADEX) 20 mg tabletIndication s:Acute on chronic heart failure with preserved ejection fraction (HC) Take 1 Tablet (20 mg) by mouth once daily. Second daily dose as needed for increase in leg swelling or shortness of breath. 60 Tablet Active OLANzapine (ZYPREXA) 2.5 mg tablet Take 5 mg by mouth at bedtime. Active buprenorphine HCL (SUBUTEX) 2 mg sublIndications: Pain Place 2 Tablets (4 mg) under the tongue three times daily before meals. Active bisacodyL (DULCOLAX) 10 mg suppositoryIndic ations:Chronic constipation Insert 1 Suppository (10 mg) rectally once daily if needed (constipation) . 30 Suppository 5 Active glipiZIDE extended-release (GLUCOTROL XL) 2.5 mg Extended-Release tabletIndication s:Type 2 diabetes mellitus with other circulatory complication, without long-term current use of insulin (HC) Take 1 Tablet (2.5 mg) by mouth once daily before a meal. 90 Tablet 1 024 Active meclizine (ANTIVERT) 25 mg tabletIndication s:Vertigo Take 1 tablet (25 mg total) by mouth 3 (three) times a day as needed for vertigo. 30 Tablet Active levothyroxine (SYNTHROID) 50 mcg tabletIndication s:Graves' disease Take 1 tablet (50 mcg total) by mouth daily. 90 Tablet 1 024 Active ezetimibe (ZETIA) 10 mg tabletIndication s:Hyperlipidemia , unspecified hyperlipidemia type Take 1 tablet (10 mg total) by mouth at bedtime. 90 Tablet 2 024 Active albuterol-ipratr opium (DUONEB) (2.5-0.5 mg) in 3 mL NEBULIZATION solutionIndicati ons:Chronic obstructive pulmonary disease, unspecified COPD type (HC) Inhale 3 mL by nebulization every 6 (six) hours as needed for shortness of breath. 180 mL 3 024 Active isosorbide mononitrate (IMDUR) 60 mg extended release tablet 24 hourIndications: CAD in [place] artery TAKE TWO TABLETS (120MG) BY MOUTH EVERY DAY 180 Tablet 025 Active Trelegy Ellipta 100-62.5-25 mcg inhalerIndicatio ns:Chronic obstructive pulmonary disease, unspecified COPD type (HC) USE 1 INHALATION DAILY 180 Each 3 025 Active predniSONE (DELTASONE) 20 mg tabletIndication s:COPD exacerbation (HC) Two tablets orally oral daily for 5 days. 10 Tablet 025 Active codeine-guaiFENe sin 10-100 mg/5 mL liquidIndication s:COPD exacerbation (HC) Take 5 mL by mouth every 4 hours if needed for Cough. 100 mL 025 Active albuterol HFA (PRO-AIR; VENTOLIN; PROVENTIL) 90 mcg/actuation inhalerIndicatio ns:COPD exacerbation (HC) Inhale 1-2 puffs every 4 (four) hours as needed for shortness of breath. 54 g 1 025 Active rosuvastatin 20 mg tabletIndication s:Hyperlipidemia , unspecified hyperlipidemia type TAKE 1 TABLET (20 MG) BY MOUTH AT BEDTIME 90 Tablet 2 025 Active metoprolol succinate 50 mg sustained-releas e tabletIndication s:CAD in [place] artery,AP (angina pectoris),Arteri osclerotic heart disease TAKE 1 TABLET (50 MG) BY MOUTH CHOU 90 Tablet 025 Active potassium chloride 20 mEq extended-release tablet (part/cryst)Jeanette cations:Acute on chronic systolic CHF (congestive heart failure) (HC) Take 2 Tablets (40 mEq) by mouth at bedtime. 180 Tablet 025 Active potassium chloride (KLOR-CON M20) 20 mEq extended-release tablet (part/cryst)Jeanette cations:Acute on chronic systolic CHF (congestive heart failure) (HC) Take 2 Tablets (40 mEq) by mouth at bedtime. 180 Tablet 2 024 2024 Discontinued( Reorder (E-cancel not sent)) rosuvastatin (CRESTOR) 20 mg tabletIndication s:Hyperlipidemia , unspecified hyperlipidemia type Take 1 Tablet (20 mg) by mouth at bedtime. 90 Tablet 2 024 2024 Discontinued metoprolol succinate (TOPROL XL) 50 mg sustained-releas e tabletIndication s:CAD in [place] artery,AP (angina pectoris),Arteri osclerotic heart disease Take 1 tablet (50 mg total) by mouth daily. 180 Tablet 024 2024 Discontinued Active Problems Problem Noted Date Diagnosed Date [...] ejection fraction 0 04/24/2022 Poor dentition 11/06/2021 Controlled substance agreement signed 09/20/2021 Overview (09/20/2021): [...] 10/03/04 - S/P CABG in 2004 at [facility] (VG to RCA and VG to mLAD) - 02/17/20: complex high risk PCI; match[place] LAD reconstruction with CHAPIN X 2; SVG [...] 06/07/2023 COPD with acute exacerbation 10/07/2021 03/06/2022 Acute on chronic respiratory failure with hypoxia and hypercapnia 10/07/2021 09/29/2024 Status post coronary angiogram 06/29/2021 03/06/2022 Leukocytosis [...] Encounters Date Type Department Care Team Description 11/13/2024 Refill [facility] [address] [place] [address] Moreno Dill MD Refill Request (Rosuvastatin, Potassium Chloride, Metoprolol Succinate) 10/07/2024 Refill [facility] [address] [place] [address] Moreno Dill MD Refill Request (Albuterol Hfa) 09/29/2024 10:30 AM HAND FLATWORK FINISHER Office Visit [address] [address] Moreno Dill MD Cough (Productive cough, started about 6 days ago, fever, chills, sweats, body aches) 09/29/[address] [address] Moreno Dill MD Medication Management 09/29/2024 Travel 09/28/2024 Telephone [facility] [address] [place] [address] Moreno Dill MD Same Day Appt (Chest infection) 09/16/2024 Refill [facility] [address] [place] [address] Moreno Dill MD Refill Request (Trelegy Ellipta) 08/30/[address] [address] Moreno Dill MD Refill Request (Isosorbide Mononitrate) from Last 3 Months Immunizations Immunization Administration Dates Next Due COVID-19 vaccine (Portalarium-Bio NTech 30mcg/0.3mL) 12YO+ BIVALENT PF, MDV 02/22/2023,07/23/2022 COVID-19 vaccine (AOBiomeBio NTech 30mcg/0.3mL) 12YO+ MARY-SUCROSE PF, MDV 03/06/2022,10/16/2021 COVID-19 vaccine (Portalarium-Bio NTech 30mcg/0.3mL) PF, MDV 01/11/2021,12/06/2020 Hepatitis B (Adult) 07/17/2000,11/22/1999,1999 Hepatitis B, Unspecified 07/17/2000,11/22/1999,0 10/10/1999 Influenza A (H1N1), Inactivated 07/13/2010 Influenza Intradermal PF 18-64 yrs 06/09/2013 Influenza Virus, Unspecified 07/06/2019, 06/29/2016,06/21/2015,2013,06/09/2013,07/18/2012,06/19/2011,1 ,07/13/2010,05/12/2009, 998 Influenza, IIV3 (Age >=3 years) 07/18/2012,05/12 Influenza, IIV4 05/17/2023,,06/09/2021,2019,07/06/2019,08/13/2018,06/29/2016 Influenza, IIV4 (=>6mos) MDV 06/21/2015 Pneumococcal Conj 20-valent (Prevnar 20) 10/16/2022 Pneumococcal Poly,23-Valent (Pneumovax) 12/11/2007,05/15/2007 TD, UNSPECIFIED 12/24/2012 Tdap 10/08/2023,12/24/2012 Tetanus Toxoid 08/08/2010 Tuberculin Skin [...] 3 03/25/2024 Social Connections Answer Date Recorded Do you often feel lonely or isolated from those around you? 0 08/06/2024 Financial Resource Strain Answer Date R ecorded Difficulty of Paying Living Expenses 3 08/06/2024 Difficulty of Paying Living Expenses Not on file 08/06/2024 Food Insecurity Answer Date Recorded Do you worry your food will run out before you are able to buy more? 1 08/06/2024 Transportation Needs Answer Date Record ed Does lack of transportation keep you from medica l appointments? 1 08/06/2024 Does lack of transportation keep you from work, meetings or getting things that you need? 1 08/06/2024 Housing Stability Answer Date Recorded What is your housing situation today? 1 08/06/2024 Utilities Answer Date Recorded Do you have trouble paying f or utilities (for example, heat, electricity, water, phone)? 1 08/06/2024 Comments No Sex and Gender Information Value Date Recorded Sex Assigned at Not on file Legal Sex Female 6:08 AM HAND FLATWORK FINISHER Gender Identity Not on file Sexual Orientation Not on file Obstetrics History Last Filed Vital Signs Vital Sign Reading Time Taken Comments Blood Pressure 144/81 09/29/2024 10:33 AM HAND FLATWORK FINISHER Pulse 79 09/29/2024 10:33 AM HAND FLATWORK FINISHER Temperature 36.9 C (98.4 F) 09/29/2024 10:33 AM HAND FLATWORK FINISHER Respiratory Rate 18 02/19/2023 5:45 PM CDT Oxygen Saturation 94% 09/29/2024 10:33 AM HAND FLATWORK FINISHER Inhaled Oxygen Concentration - - Weight 81.3 kg (179 lb 3.2 oz) 09/29/2024 10:33 AM HAND FLATWORK FINISHER Height 162.6 cm (5' 4) 11/08/2023 3:34 PM CDT Body Mass Index 30.76 11/08/2023 3:34 PM CDT Plan of Treatment Health Maintenance Due Date Last Done Comments Pap test for age 21-65 02/11/1980 Colonoscopy through age 75 02/11/2004 RSV vaccine for adults or (1 - Risk 60-74 years 1-dose series) 2019 Mammogram for age 45-75 08/22/2023 08/22/2022 DEXA/DXA scan for age 65+ 02/11/2024 Medicare Wellness for age 65+ 02/11/2024 Influenza Vaccine (#1) 2024 , 07/23/2022, 06/09/2021, Additional history exists BMI (ht and wt on same day) for age 18+ 11/07/2024 11/08/2023, 08/29/2023, 01/08/2023, Additional history exists Depression screening for age 12+ 03/25/2025 03/25/2024, 10/03/2023, 10/03/2023, Additional history exists COVID-19 vaccine series ( season) 2025 10/08/2024, 02/22/2023, 07/23/2022, Additional history exists Lipids for age 45-75 01/21/2029 01/22/2024, 02/19/2023, 10/16/2022, Additional history exists Tetanus booster 10/08/2033 10/08/2023, 05/0 08/2012, 12/24/2012 Hepatitis C screening for ag e 18-79 Completed 10/06/2020 Zoster (shingles) series for age 50+ Completed 11/06/2021, 03/14/2021 HIV for age 15-65 Completed 10/16/2022 Pneumococcal series for age 50+ Completed 10/16/2022, 12/11/2007, 05/15/2007 Tdap Completed 10/08/2023, 12/24/2012 Medical Devices Implanted Type Area [employer] Worker Device Identifier Shelf Expiration Date Model / Serial / Lot [id number] 15cc Mtf Chips Canclls Jar [[id number]] Implanted:Qty: 1 on 09/19/2016 by Dat Hazel MD at [facility] Explanted:at [facility] (Quantity not on file) N/A: Spine Musculoskeletal Transplant 01/30/2017 [id number] / [id number] / [id number] Matrix 1cc [place] Plus Paste Dbm Implanted:Qty: 1 on 09/19/2016 by Dat Hazel MD at [facility] Explanted:at [facility] (Quantity not on file) N/A: Spine Medtronic Spine/Ortho 04/05/2018 [id number]# / [id number] / Screw Cerv Ant 4x14mm Atlantistranslational Fa Slf Drill - [id number] Implanted:Qty: 4 on 09/19/2016 by Dat Hazel MD at [facility] N/A: Spine Medtronic Spine/Ortho [id number] / / Screw Occipital 4.5x6mm Vertexselect - [id number] Implanted:Qty: 2 on 09/19/2016 by Dat Hazel MD at [facility] N/A: Spine Medtronic Spine/Ortho [id number] / / Plate Cerv 2lvl 40mm [place] Vision Elite Ant - [id number] Implanted:Qty: 1 on 09/19/2016 by Dat Hazel MD at [facility] N/A: Spine Medtronic Spine/Ortho [id number]# / / Spacer [id number] Implanted:Qty: 1 on 09/19/2016 by Dat Hazel MD at [facility] N/A: Spine [id number] / / 70CV Description:SPACER [id number] Spacer [id number] Implanted:Qty: 1 on 09/19/2016 by Dat Hazel MD at [facility] N/A: Spine [id number] / / 32CX Description:SPACER [id number] Procedures Procedure Name Priority Date/Time Associated Diagnosis Comments COVID/FLU/RSV PANEL Routine 09/29/2024 10:51 AM HAND FLATWORK FINISHER Cough, unspecified type LIPID PANEL Routine 01/22/2024 1:59 PM CDT Encounter for long-term (current) use of other medications LC HIV-1/O/2, 4TH GENERATION Routine 10/16/2022 1:42 PM HAND FLATWORK FINISHER Screening for HIV (human immunodeficiency virus) XR MAMMO ROMY BILAT DIAG Routine 08/22/2022 2:50 PM HAND FLATWORK FINISHER Mass of upper outer quadrant of right breast ANTI HCV Routine 10/06/2020 12:55 PM HAND FLATWORK FINISHER Need for hepatitis C screening test from Last 3 Months or Most Recently Relevant to Health Maintenance Results * COVID/FLU/RSV PANEL (09/29/2024 10:51 AM HAND FLATWORK FINISHER) COVID 19 [facility] Negative Negative 09/29/2024 4:09 PM HAND FLATWORK FINISHER [facility] Comment:All PCR tests are suarez bject to false negative result due to variability in viral load and collection technique. A negative result does not rule out a SARS-CoV-2 infection. Clinical correlation required. INFLUENZA A PCR Negative 5 4:09 PM HAND FLATWORK FINISHER [facility] INFLUENZA B PCR Negative 5 4:09 PM HAND FLATWORK FINISHER [facility] Respiratory Syncytial Virus Negative 09/29/2024 4:09 PM HAND FLATWORK FINISHER [facility] Swab NASOPHARYNGEAL SWAB / Unknown Non-Blood / Unknown 09/29/2024 10:51 AM HAND FLATWORK FINISHER 09/29/2024 10:52 AM HAND FLATWORK FINISHER Moreno Dill MD MICROBIOLOGY Final Result [facility] [address] [place] [address], * LIPID PANEL (01/22/2024 1:59 PM CDT) CHOLESTEROL,TOTAL 171 100 - 199 mg/dL 01/22/2024 10:45 PM CDT [facility] Comment: Cholesterol, Total Reference Ranges Desirable <200 mg/dL Borderline 200-239 mg/dL High >=240 mg/dL TRIGLYCERIDES 149 <150 mg/dL 01/22/2024 10:45 PM CDT [facility] HDL CHOLESTEROL 63 >40 mg/dL 10:45 PM CDT [facility] NON-HDL CHOLESTEROL 108 <145 mg/dl 01/22/2024 10:45 PM CDT [facility] CHOL/HDL RATIO 2.71 <4.50 01/22/2024 10:45 PM CDT [facility] LDL CHOLESTEROL 78 <=130 mg/dL 01/22/2024 10:45 PM CDT [facility] VLDL CHOLESTEROL 30 <=30 mg/dL 01/22/2024 10:45 PM CDT [facility] PROVIDER ORDERED STATUS FASTING 01/22/2024 10:45 PM CDT [facility] Blood BLOOD SPECIMEN / Unknown Venipuncture / Unknown 01/22/2024 1:59 PM CDT 01/22/2024 2:00 PM CDT us Moreno Dill MD CHEMISTRY Final Result Performing Organization Address City/[facility]/ZIP Co de Phone Number [facility] [address] [place] [address], * HIV-1/O/2, 4TH GENERATION (10/16/2022 1:42 PM HAND FLATWORK FINISHER) [facility] HIV Scr 4th Gen Non Reactive Non Reactive 10/18/2022 1:09 PM HAND FLATWORK FINISHER [facility] Comment: HIV Negative HIV-1/HIV-2 antibodies and HIV-1 p24 antigen were NOT detected. There is no laboratory evidence of HIV infection. Blood BLOOD SPECIMEN / Unknown Butterfly / Unknown 10/16/2022 1:42 PM HAND FLATWORK FINISHER 10/16/2022 1:49 PM HAND FLATWORK FINISHER Narrative [facility] - 10/18/2022 1:09 PM HAND FLATWORK FINISHER Performed at: [address] [place] [id number] Primer Expeditor And Drier: Scotty Jarrell MD, Phone: [phone] us Moreno Dill MD LABORATORY Final Result Performing Organization Address City/[facility]/ZIP Co de Phone Number [facility] [address] [place] [address], [place] * XR MAMMO ROMY BILAT DIAG (08/22/2022 2:50 PM HAND FLATWORK FINISHER) Anatomical Region Laterality Modality BREASTS, Breast Left, Breast Right Bilateral Mammography Impressions 08/23/2022 12:21 PM HAND FLATWORK FINISHER Subcutaneous bruise RIGHT breast 11 o'clock 8 cm from the nipple. No evidence of malignancy. RECOMMENDATIONS: Routine screening mammography. BI-RADS Category 2: Benign Results and recommendations discussed with the patient. Dictated by: Ra Correia MD @08/22/2022 3:18:57 PM/gordy PATIENTS: You will also receive a letter with your examination results in an easy to read format. If you have questions about your results, please contact your referring provider. Narrative 08/23/2022 12:21 PM HAND FLATWORK FINISHER As a result of the Cures Act, [...] No abnormal vascularity. Moreno Dill MD MAMMO Final Result * ANTI HCV (10/06/2020 12:55 PM HAND FLATWORK FINISHER) HEPATITIS C ANTIBODY Non-React francis Non-React francis 10/06/2020 10:54 PM HAND FLATWORK FINISHER [facility] Comment:Antibodies to HCV no t detected; does not exclude the possibility of exposure to HCV. Blood BLOOD SPECIMEN / Unknown Butterfly / Unknown 10/06/2020 12:55 PM HAND FLATWORK FINISHER 10/06/2020 1:00 PM HAND FLATWORK FINISHER us Moreno Dill MD SEND OUTS Final Result [facility] [address] [place] [address], [place] from Last 3 Months or Most Recently Relevant to Health Maintenance Insurance [employer] PPO MR Advance Directives * [...] Comments Code Status Discussion: Discussed Care Teams Video Control Engineer Relationship Specialty Start Date End Date Moreno Dill MD [address] [place] [address] PCP - General Family Practice 04/20/19
--- OUTSIDE RECORDS SUMMARY | 2024-11-23 13:04 | XMS_ITS | Clinical Summary ---
Author Organization [facility] er Address [address] [place] [id number] Care Team Providers Care Metal Pattern Maker Name Role Phone Nicolás Tyler MD Primary Care Provider Allergies Active Allergy Reactions Criticality Noted Date Comments Atorvastatin Other (see comments) Medium 04/28/2015 Other reaction(s): Myalgia, Myalgia Buspirone Other (see comments) 07/24/2019 Possible cause of rash Codeine Anaphylaxis,Itching High 09/28/2010 Dichloralphenazone Hives High 04/02/2021 Fentanyl Other (see comments) High 04/17/2022 Other Reaction(s): Respiratory Depression My oxygen went down 02/19- tolerated for angiogram Gabapentin Nausea And Vomiting, GI intolerance Medium 08/26/2015 Isometheptene Hives High 04/02/2021 Latex Anaphylaxis,Rash High 09/28/2010 Metformin Other (see comments) Medium 10/06/2020 Other Reaction(s): GI intolerance Nausea, and it made me smell bad. Nausea, and it made me smell bad. Other reaction(s): GI intolerance Nausea, and it made me smell bad. Niacin Headache,Rash Medium 10/09/2010 Other reaction(s): Flushing Burning skin, per Cerner Olanzapine Shortness of breath High 03/25/2024 Quetiapine Shortness of breath High 02/19/2023 Other Reaction(s): Bronchospasm, Chest Pain, Respiratory Distress Rizatriptan Anaphylaxis,Other (s ee comments) High 09/28/2010 MAXALT flushing Sumatriptan Anaphylaxis High 09/05/2004 Trazodone Other (see comments) High 05/06/2018 Black outs Black outs Black outs Black outs Medications omega-3 (FISH OIL) 1000 MG capsule Take 1 capsule (1,000 mg total) by mouth daily 09/28/19 11 Active clopidogrel (PLAVIX) 75 MG tablet 1 tablet (75 mg total) 1 (one) time each day Stent 12/08/19 20 Active Magnesium Cl-Calcium Carbonate 71.5-119 MG tablet delayed-release Take 2 tablets by mouth daily Active calcium citrate-vitamin D (CALTRATE w/ERGOCALCIFEROL) 315-250 MG-UNIT tablet Take 1 tablet by mouth 1 (one) time each day Active Sharps Container (QYQFBU-E-PYQMA LOCKING BRACKET) [facility] New CPAP machine for home use at [...] Need: 99 months, Frequency of use: Daily 01/13/20 20 Active Blood Glucose Monitoring Suppl (FIFTY50 GLUCOSE METER 2.0) w/Device kit 1 (one) time each day 05/08/20 19 Active senna-docusate (PERICOLACE) 8.6-50 MG per tablet Take 2 tablets by mouth 1 (one) time each day 09/21/19 17 Active glucose blood ([employer] TEST STRIPS) test strip 1 (one) time each day 05/08/20 19 Active ezetimibe (ZETIA) 10 MG tablet Take 1 tablet (10 mg total) by mouth every night cholesterol 10/31/19 20 Active ondansetron (ZOFRAN) 4 MG tablet 2 (two) times a day if needed 11/09/19 20 Active Naloxone HCl (Narcan) 4 MG/0.1ML liquid if needed Acti ve mirtazapine (REMERON) 15 MG tablet Take 1 tablet (15 mg total) by mouth every night Sleep 01/13/20 20 Active ipratropium-albute rol (DUO-NEB) 0.5-2.5 mg/3 mL nebulizer solution Inhale 3 mL if needed Allergy induced Asthma 12/07/19 17 Active aspirin 81 MG chewable tablet Chew 2 tablets (162 mg total) 1 (one) time each day Heart Health 12/07/19 20 Active Lancets misc 1 (one) time each day Active Ascorbic Acid (VITAMIN C) 500 MG chewable tablet 1 (one) time each day 01/03/20 19 Active nitroglycerin (NITROSTAT) 0.4 MG SL tabletIndications: ASCVD (arteriosclerotic cardiovascular disease) Place 1 tablet (0.4 mg total) under the tongue if needed for chest pain Angina 25 tablet 1 03/22/20 20 Active levothyroxine (SYNTHROID) 50 MCG tabletIndications: Hypothyroidism, unspecified type Take 1 tablet (50 mcg total) by mouth 1 (one) time each day 90 tablet 06/10/20 20 Active albuterol HFA (PROVENTIL HFA;VENTOLIN HFA) 108 (90 Base) MCG/ACT inhaler Inhale 1-2 puffs every 4 (four) hours if needed 06/22/20 20 Active cetirizine (ZyrTEC) 10 MG tablet Take 1 tablet (10 mg total) by mouth once daily as needed 02/21/20 24 Active glipiZIDE (GLUCOTROL XL) 2.5 MG 24 hr tablet Take 1 tablet (2.5 mg total) by mouth daily 03/23/20 24 Active meclizine (ANTIVERT) 25 MG tablet Take 1 tablet (25 mg total) by mouth 3 (three) times a day if needed 05/01/20 24 Active methocarbamol (ROBAXIN) 750 MG tablet Take 1 tablet (750 mg total) by mouth every night 10/06/19 25 Active OLANZapine (ZyPREXA) 2.5 MG tablet Take 2 tablets (5 mg total) by mouth daily 03/03/20 24 Active Omeprazole 20 MG tablet delayed-release Take 20 mg by mouth daily 02/21/20 24 Active potassium chloride (KLOR-CON M) 20 MEQ CR tablet Take 2 tablets (40 mEq total) by mouth daily 02/21/20 24 Active prazosin (MINIPRESS) 1 MG capsule Take 8 capsules (8 mg total) by mouth every night 07/27/20 21 Active topiramate (TOPAMAX) 25 MG tablet Take 1 tablet (25 mg total) by mouth 1 (one) time each day Active torsemide (DEMADEX) 20 MG tablet Take 1 tablet (20 mg total) by mouth daily 02/21/20 24 Active PARoxetine (PAXIL) 40 MG tablet 09/10/19 25 Active Evolocumab (Repatha SureClick) 140 MG/ML solution auto-injector Inject 140 mg under the skin once every 2 weeks 02/19/20 24 Active Trelegy Ellipta 100-62.5-25 MCG/ACT aerosol powder Inhale 1 puff daily 09/17/19 25 Active HYDROcodone-acetam inophen (NORCO) 7.5-325 MG per tablet Take 1 tablet by mouth 3 (three) times a day if needed 09/11/19 25 Active lidocaine (LIDODERM) 5 %Indications:Flank pain,Acute on chronic low back pain Apply 1 patch topically 1 (one) time each day Apply to painful area 12 hours per day, remove for 12 hours. 30 patch 1 10/08/19 25 026 Active losartan (Cozaar) 50 MG tabletIndications: Coronary artery disease involving chefornak coronary artery of chefornak heart without angina pectoris,Heart failure with preserved ejection fraction, unspecified HF chronicity (HCC),Type 2 diabetes mellitus with other circulatory complication, without long-term current use of insulin (HCC) Take 1 tablet (50 mg total) by mouth 1 (one) time each day 90 tablet 10/08/19 25 Active metoprolol succinate XL (TOPROL-XL) 50 MG 24 hr tabletIndications: Coronary artery disease involving chefornak coronary artery of che[place] heart without angina pectoris,Heart failure with preserved ejection fraction, unspecified HF chronicity (HCC),Moderate mixed hyperlipidemia not requiring statin therapy,History of coronary artery bypass graft x 2,Type 2 diabetes mellitus with other circulatory complication, without long-term current use of insulin (HCC),Stage 3a chronic kidney disease (HCC) Take 1 tablet (50 mg total) by mouth every night Blood pressure 11/06/19 25 Active isosorbide mononitrate (IMDUR) 120 MG 24 hr tabletIndications: Coronary artery disease involving chefornak coronary artery of che[place]nak heart without angina pectoris,Heart failure with preserved ejection fraction, unspecified HF chronicity (HCC),Moderate mixed hyperlipidemia not requiring statin therapy,History of coronary artery bypass graft x 2,Type 2 diabetes mellitus with other circulatory complication, without long-term current use of insulin (HCC),Stage 3a chronic kidney disease (HCC) Take 1 tablet (120 mg total) by mouth 1 (one) time each day in the morning Vasal spasms 90 tablet 3 11/06/19 25 Active rosuvastatin (CRESTOR) 20 MG tabletIndications: Coronary artery disease involving chefornak coronary artery of che[place] heart without angina pectoris,Heart failure with preserved ejection fraction, unspecified HF chronicity (HCC),Moderate mixed hyperlipidemia not requiring statin therapy,History of coronary artery bypass graft x 2,Type 2 diabetes mellitus with other circulatory complication, without long-term current use of insulin ([facility]),Stage 3a chronic kidney disease ([facility]) Take 1 tablet (20 mg total) by mouth every night cholesterol 90 tablet 3 11/06/19 25 Active amoxicillin-clavul anate (Augmentin) 500-125 MG per tabletIndications: Periodontal abscess Take 1 tablet by mouth 3 (three) times a day for 10 days 30 tablet 11/18/19 25 025 Active benzonatate (TESSALON) 200 MG capsuleIndications :Acute cough Take 1 capsule (200 mg total) by mouth 3 (three) times a day if needed for cough Do not crush or chew. 42 capsule 11/20/19 25 025 Active metoprolol succinate XL (TOPROL-XL) 50 MG 24 hr tablet Take 1 tablet (50 mg total) by mouth 1 (one) time each day Blood pressure 12/08/19 20 025 Discontinu ed(Reorder ) rosuvastatin (CRESTOR) 5 MG tablet Take 2 tablets (10 mg total) by mouth every night cholesterol 10/31/19 20 025 Discontinu ed(Reorder ) isosorbide mononitrate (IMDUR) 120 MG 24 hr tablet 1 tablet (120 mg total) 1 (one) time each day Vasal spasms 025 Discontinu ed(Reorder ) senna 8.6 MG tablet Take 2 tablets (17.2 mg total) by mouth daily 025 Discontinu ed(Duplica te Order) predniSONE (DELTASONE) 20 MG tabletIndications: Acute cough Take 2 tablets (40 mg total) by mouth 1 (one) time each day for 5 days 10 tablet 11/18/19 25 025 Active Problems Problem Noted Date Diagnosed Date History of coronary artery bypass graft x 2 03/1 10/2024 Mild aortic stenosis by prior echocardiogram Cluster B personality disorder 10/08/2024 Heart failure with preserved ejection fraction, unspecified HF chronicity 10/08/2024 Moderate episode of recurrent major depressive d isorder 10/08/2024 Type 2 diabetes mellitus wit h other circulatory complication, without long-term current use of insulin 10/08/2024 Stage 3a chronic kidney disease 10/08/2024 PTSD (post-traumatic stress disorder) 10/08/2024 Assessment & Plan (10/08/2024 3:05 PM INFORMATICS NURSE SPECIALIST): Psychological condition is worsening. Continue current treatment regimen. Psychological condition will be reassessed at the next regular appointment. Gastroesophageal reflux disease 02/02/2020 Controlled substance agreement signed 08/21/2019 Overview (02/02/2020): Signed 08/17/19 Dr Anastasiia Reeves Psychiatry Opioid dependence 06/04/2016 Overview (02/02/2020): Opioid dependence with pain contract Chronic obstructive pulmonary disease 06/14/2015 Overview (02/02/2020): Disease Lung Obstructive Chronic (COPD) NOS Chronic pain syndrome 11/22/2013 Overview (02/02/2020): headaches, low back pain CAD (coronary artery disease) 09/28/2010 Overview (02/02/2020): Coronary artery disease (CAD) Cardiology visit 06/18/2011, next due 06/06 ANOMALOUS CORONARY ARTERIES, mild CAD per coronary angiogram 10/03/04 Graves' disease 09/28/2010 Hyperlipidemia 09/28/2010 Obstructive sleep apnea (adult) (pediatric) 10/2010 Overview (02/02/2020): CPAP machine date of onset unknown Resolved Problems Problem Noted Date Diagnosed Date Resolved Date Acute on chronic systolic CH F (congestive heart failure) 10/08/2024 10/08/2024 AP (angina pectoris) 10/08/2024 025 Encounters Date Type Department Care Team Description 11/19/[address] [address] Nicolás Tyler MD Requesting cough medication 11/17/2024 3:30 PM CDT Lab [address] [address] 11/17/2024 2:20 PM CDT Office Visit [address] [address] Nicolás Tyler MD Medicare welcome visit (Primary Dx); Fatigue, unspecified type; Acute cough; History of coronary artery bypass graft x 2; Mild aortic stenosis by prior echocardiogram; Graves' disease; Type 2 diabetes mellitus with other circulatory complication, without long-term current use of insulin (HCC); Stage 3a chronic kidney disease (HCC); Coronary artery disease involving chefornak coronary artery of chefornak heart without angina pectoris; Moderate mixed hyperlipidemia [...] for malignant neoplasm of breast; Periodontal abscess 11/17/[address] [address] Nicolás Tyler MD Referral to be faxed 11/05/2024 1:40 PM CDT Consult [address] [address] Jose Lincoln MD Coronary artery disease involving chefornak coronary artery of chefornak heart without angina pectoris (Primary Dx); Heart [...] obstructive pulmonary disease, unspecified COPD type (HCC) 10/08/2024 4:15 PM INFORMATICS NURSE SPECIALIST Lab [address] [address] Need for hepatitis C screening test; Moderate mixed hyperlipidemia not requiring statin therapy; Type 2 diabetes mellitus with other circulatory complication, without long-term current use of insulin (HCC); Flank pain 10/08/2024 2:20 PM INFORMATICS NURSE SPECIALIST Office Visit [address] [address] Nicolás Tyler MD Coronary artery disease involving chefornak coronary artery of chefornak heart without angina pectoris (Primary Dx); Flank pain; Acute on chronic low back pain; Fatigue, unspecified type; Moderate mixed hyperlipidemia not requiring statin therapy; Heart failure with preserved ejection fraction, unspecified HF chronicity (HCC); Type 2 diabetes mellitus with other circulatory complication, without long-term current use of insulin (HCC); Stage 3a chronic kidney disease (HCC); Moderate episode of recurrent major depressive disorder (HCC); Cluster B personality disorder (HCC); PTSD (post-traumatic stress disorder); Chronic obstructive pulmonary disease, unspecified COPD type (HCC); Uncomplicated opioid dependence (HCC); Graves' disease; Need for hepatitis C screening test from Last 3 Months Immunizations Name Administration Dates Next Due COVID-19, mRNA, LNP-S, PF, 3 0mcg/0.3mL dose Pfizer 10/16/2021 COVID-19, mRNA, LNP-s, PF, roldan-succrose, 30mcg/0.3mL, COMIRNATY Ages 12+ 10/08/2024 Flu Vaccine High Dose 65yrs and Older IM 06/25/2011 H1N1 All Forms 07/13/2010 Hep B, Unspecified 07/17/2000,11/22/1999, 000 Hepatitis B 07/17/2000,11/22/1999,10/10/1999 INFLUENZA QUADRIVALENT MDV (IM) 06/21/2015 Influenza 6mo-64yrs Quad Pre servative Free IM 05/17/2023,07/23/2022,06/09/2021,05/13,07/06/2019,08/13/2018,06/29/2016 ,06/29/2016 Influenza Split 06/09/2013 Influenza Split Preservative Free ID 11/2015,06/21/2015,06/08/2014,06/09,07/18/2012 Influenza, High-Dose, Trival ent, PF, 65 yrs and Older 10/08/2024 Influenza, Split Virus, Triv alent, Preservative 07/18/2012,05/12/2009 Influenza, Unspecified 07/06/2019,2015,06/21/2015,06/08,06/05/2013,07/18/2012,06/19/2011 ,06/01/2011,07/13/2010,05/12/2009,06/27 PPD Test 07/01/2011 Pneumococcal Conjugate PCV20 10/16/2022 Pneumococcal Polysaccharide 12/11/2007, 7 Td, Unspecified 12/24/2012 Tdap 10/08/2023,12/24/2012 Tetanus 08/08/2010 Zoster Recombinant 11/06/2021,03/14/2021 Social History Tobacco Use Types Packs/Day Years [...] from your doctor or pharmacy? Never 11/17/2024 [employer] Utilities Answer Date Recorded In the past [address] [facility] [employer], or water [employer] threatened to shut off services in your [...] any clubs o r organizations such as restorationist groups, unions, fraternal or athletic groups, or [...] Date Recorded PHQ-9 Total Score 6 11/17/2024 [facility] - Occupational [...] any time in the past 12 m [facility], were you homeless or living in a half-way (including now)? No 11/17/2024 Interpersonal Safety Questionnaire [...] file Not on file Not on file Last Filed Vital Signs Vital Sign Reading [...] Mass Index 31.79 11/17/2024 2:24 PM CDT Plan of Treatment Upcoming Encounters Date Type Department Care Team (Late st Contact Info) Description 01/26/2025 1:00 PM CDT Office Visit [address] [address] 02/17/2025 2:20 PM CDT Office Visit [address] [address] Nicolás Tyler MD [address] [facility] [address] [place] [address] 02/18/2025 1:20 PM CDT Office Visit [address] [place] [address] [address] Jose Lincoln MD [address] [place] [id number] Health Maintenance Due Date Last Done Comments Bone Density Scan 1959 CT Colonography 1959 Colonoscopy 1959 Colorectal Cancer Screening 1959 FIT-DNA 1959 Sigmoidoscopy 1959 iFOBT 1959 Diabetes: Retinopathy Screening 1969 Diabetes: Foot Exam 1977 Mammogram 08/22/2023 08/22/2022, 07/27, 11/22/2016, Additional history exists Diabetes: Hemoglobin A1C 05/20/2025 025, 10/08/2024, 01/22/2024, Additional history exists Diabetes: Urine Protein Screening 10/08/2025 10/08/2024, 08/23/2023, 08/23/2023, Additional history exists Lipid Panel 10/08/2025 10/08/2024, 12/25, 01/22/2024, Additional history exists Fall Risk Performed 11/17/2025 11/17/2024 Medicare Annual Wellness Visit (AWV) 11/17/2025 11/17/2024 DTaP,Tdap,and Td Vaccines (4 - Td or Tdap) 10/08/2033 10/08/2023, 12/24/2012, 12/24/2012 Zoster Vaccines Completed 11/06/2021, 03/14/2021 Pneumococcal Vaccine: 50+ Years Completed 10/16/2022, 12/11/2007, 05/15/2007 COVID-19 Vaccine Completed 10/08/2024, , 07/23/2022, Additional history exists Influenza Vaccine Completed 10/08/2024, , 07/23/2022, Additional history exists HPV Vaccines Aged Out No longer eligi ble based on patient's age to complete this topic Pap Smear Discontinued Procedures Procedure Name Priority Date/Time Associated Diagnosis Comments MANUAL DIFFERENTIAL (AFTER VERIF OF AUTO) Routine 11/17/2024 3:15 PM CDT CBC BRANCH OFFICE W/DIFF Routine 11/17/2024 2:58 PM CDT HEMOGLOBIN A1C Routine 11/17/2024 2:58 PM CDT Type 2 diabetes mellitus with other circulatory complication, without long-term current use of insulin (HCC) TSH Routine 11/17/2024 2:58 PM CDT Graves' disease VITAMIN D, TOTAL Routine 11/17/2024 2:58 PM CDT Fatigue, unspecified type COVID-19, ROGERS ID NOW, PCR Routine 11/17/2024 2:41 PM CDT Acute cough FLU(A/B), ROGERS ID NOW, PCR Routine 11/17/2024 2:41 PM CDT Acute cough MICROALBUMIN/CREATIN INE RATIO Routine 10/08/2024 4:29 PM INFORMATICS NURSE SPECIALIST Type 2 diabetes mellitus with other circulatory complication, without long-term current use of insulin (HCC) LIPID PANEL Routine 10/08/2024 4:22 PM INFORMATICS NURSE SPECIALIST Moderate mixed hyperlipidemia not requiring statin therapy HEPATITIS C ANTIBODY Routine 10/08/2024 4:22 PM INFORMATICS NURSE SPECIALIST Need for hepatitis C screening test ESTIMATED GLOMERULAR FILTRATION RATE (EGFR) Routine 10/08/2024 3:39 PM INFORMATICS NURSE SPECIALIST Stage 3a chronic kidney disease (HCC) CBC BRANCH OFFICE W/DIFF Routine 10/08/2024 3:39 PM INFORMATICS NURSE SPECIALIST BASIC METABOLIC PANEL Routine 10/08/2024 3:39 PM INFORMATICS NURSE SPECIALIST Stage 3a chronic kidney disease (HCC) TSH Routine 10/08/2024 3:39 PM INFORMATICS NURSE SPECIALIST Fatigue, unspecified type Graves' disease VITAMIN D, TOTAL Routine 10/08/2024 3:39 PM INFORMATICS NURSE SPECIALIST Fatigue, unspecified type HEMOGLOBIN A1C Routine 10/08/2024 3:39 PM INFORMATICS NURSE SPECIALIST Type 2 diabetes mellitus with other circulatory complication, without long-term current use of insulin (HCC) URINALYSIS WITH REFLEX MICROSCOPIC Routine 10/08/2024 3:20 PM INFORMATICS NURSE SPECIALIST Flank pain ECG 12-LEAD Routine 10/08/2024 Coronary artery disease involving chefornak coronary artery of chefornak heart without angina pectoris Moderate mixed hyperlipidemia not requiring statin therapy Heart failure with preserved ejection fraction, unspecified HF chronicity (HCC) from Last 3 Months Results * (ABNORMAL) Manual Differential (after verif of auto) (11/17/2024 3:15 PM CDT) Manual Differential PERFORMED 11/18/2024 1:48 PM CDT [facility] Neutrophils % 59.0 % 11/18/2024 1:48 PM CDT [facility] Lymphocytes % 27.0 % 11/18/2024 1:48 PM [facility] Monocytes % 12.0 % 11/18/2024 1:48 PM [facility] Eosinophils % 0.00 % 11/18/2024 1:48 PM [facility] Basophils % 2.0 % 11/18/2024 1:48 PM [facility] Absolute Neutrophils 4.2 1.7 - 7.0 K/uL 11/18/2024 1:48 PM [facility] Lymphocytes Absolute 1.9 0.9 - 2.9 K/uL 11/18/2024 1:48 PM [facility] Monocytes Absolute 0.9 0.3 - 0.9 K/uL 11/18/2024 1:48 PM [facility] Eosinophils Absolute 0.0(L) 0.1 - 0.5 K/uL 11/18/2024 1:48 PM [facility] Basophils Absolute 0.1 0.0 - 0.1 K/uL 11/18/2024 1:48 PM [facility] Slide Review PERFORMED 11/18/2024 1:48 PM [facility] RBC Morphology NORMAL 11/18/2024 1:48 PM [facility] PLT Morphology ADEQUATE 11/18/2024 1:48 PM [facility] Total Counted 100 11/18/2024 1:48 PM [facility] 11/17/2024 3:15 PM CDT 11/18/2024 12:27 PM CDT us Nicolás Tyler MD LAB BLOOD ORDERABLES Final Result [facility] [address] [place] [address] * Vitamin D, Total ([facility] preferred) (11/17/2024 2:58 PM CDT) Only the most recent of2 resultswithin the time period is included. Pathologist [facility] Vitamin D, Total 46.5 ng/mL 11/19/19 1:29 PM CDT [facility] Comment: Deficient <20 Insufficient 20-<30 Sufficient 30-100 Vitamin D2/D3 fractionation is recommended at the discretion of the clinician if Total Vitamin D is within deficient or insufficient range. Blood (Blood, Venous) 11/17/2024 2:58 PM CDT 11/18/2024 12:27 PM CDT us iNcolás Tyler MD LAB BLOOD ORDERABLES Final Result [facility] [address] [place] [address] * CBC Branch Off w/Diff (11/17/2024 2:58 PM CDT) Only the most recent of2 resultswithin the time period is included. Pathologist [facility] WBC 7.1 3.5 - 10.5 K/uL 11/17/2024 [...] % 21.8 % 11/17/2024 3:35 PM CDT [facility] [place] [place] Mid-size Cells 17.1 % 11/17/2024 3:35 PM CDT [facility] Granulocytes/Edward trophils 61.1 % 11/17/2024 3:35 PM CDT [facility] [place] Lymphocytes Absolute 1.5 0.9 - 2.9 K/uL 11/17/2024 3:35 PM CDT [facility] [place] MIDS Absolute 1.2 0.4 - 1.5 K/uL 11/17/2024 3:35 PM CDT [facility] Granulocytes/Edward trophils Absolute 4.4 1.7 - 7.0 K/uL 11/17/2024 3:35 PM CDT [facility] [place] 11/17/2024 2:58 PM CDT 11/17/2024 2:58 PM CDT Nicolás Tyler MD LAB BLOOD ORDERABLES Final Result [facility] [address] [place] [address] * TSH (11/17/2024 2:58 PM CDT) Only the most recent of2 resultswithin the time period is included. Pathologist [facility] TSH, Sensitive 2.12 0.46 - 4.68 mIU/L 11/18/2024 2:07 PM CDT [facility] Comment: The results from this or [...] 2:58 PM CDT 11/18/2024 12:50 PM CDT Nicolás Tyler MD LAB BLOOD ORDERABLES Final Result Performing Organization Address City/[facility]/ZIP Co de Phone Number [facility] [address] [place] [phone] * (ABNORMAL) Hemoglobin A1c (11/17/2024 2:58 PM CDT) Only the most recent of2 resultswithin the time period is included. Hemoglobin A1C 7.8(H) 4.0 - 5.6 % A1C 11/18/2024 1:10 PM CDT [facility] Comment: Reference Range 4.0-5.6% is for non- adults >=18 yrs <5.6% Non-Diabetic 5.7-6.4% Increased risk of Diabetes >=6.5% Indicative of Diabetes <7.0% ADA goal for glycemic control Methodology may not detect all hemoglobin variants which can affect A1c results. Method certified by National Glycohemoglobin Standardization Program. Blood (Blood, Venous) 11/17/2024 2:58 PM CDT 11/18/2024 12:27 PM CDT Nicolás Tyler MD LAB BLOOD ORDERABLES Final Result Performing Organization Address [facility] Co de Phone Number [facility] [address] [place] [phone] * Flu, Rogers ID Now, PCR (11/17/2024 2:41 PM CDT) Flu Source Nasal 11/17/2024 3:34 PM CDT [facility] Influenza A, PCR NEGATIVE Negative 11/17/2024 3:34 PM CDT [facility] Influenza B, PCR NEGATIVE Negative 11/17/2024 3:34 PM CDT [facility] Flu Interp see below 11/17/2024 3:34 PM CDT [facility] Comment: Flu A Viral RNA Not Detected; Flu B Viral RNA Not Detected. Testing was performed using the Rogers ID NOW A & B 2 Assay. Swab 11/17/2024 2:41 PM CDT 11/17/2024 3:33 PM CDT Nicolás Tyler MD LAB MOLECULAR DIAGNOSTICS O RDERABLES Final Result Performing Organization Address [facility] Co de Phone Number [facility] [address] [place] [address] * Covid-19, Rogers ID Now, PCR (11/17/2024 2:41 PM CDT) Covid Source Nasal 11/17/2024 3:34 PM CDT [facility] Covid-19, ID Now PCR NEGATIVE Negative 11/17/2024 3:34 PM CDT [facility] Comment: Negative results should be treated as presumptive and, if inconsistent with clinical signs and symptoms or necessary for patient management, should be tested with an alternative molecular assay. Testing was performed using the Rogers ID NOW COVID-19 2.0 assay. Swab (Nasal) 11/17/2024 2:41 PM CDT 11/17/2024 3:33 PM CDT Nicolás Tyler MD LAB MOLECULAR DIAGNOSTICS O MILLA Final Result Performing Organization Address [facility] de Phone Number [facility] [address] [place] [address] * Microalbumin/Creatinine Ratio (10/08/2024 4:29 PM INFORMATICS NURSE SPECIALIST) Microalbumin,mg/ day 14.2 0.0 - 16.6 mg/L 10/09/2024 5:03 PM [facility] Creatinine, Urine 77 mg/dL 10/09/2024 5:03 PM INFORMATICS NURSE SPECIALIST [facility] Comment: No established reference range. Microalb/Creat Ratio 18 0 - 24 mg/g 10/09/2024 5:03 PM [facility] Urine (Urine, Clean Catch) 10/08/2024 4:29 PM INFORMATICS NURSE SPECIALIST 10/09/2024 12:35 PM INFORMATICS NURSE SPECIALIST Nicolás Tyler MD LAB URINE ORDERABLES Final Result Performing Organization Address [facility] de Phone Number [facility] [address] [place] [phone] * Hepatitis C antibody (10/08/2024 4:22 PM INFORMATICS NURSE SPECIALIST) [facility] Hepatitis C Antibody NON-REACT FRANCIS Non-React francis 10/09/2024 11:05 PM INFORMATICS NURSE SPECIALIST [facility] Comment: The results from this or any other diagnostic test should be used and interpreted only in the context of the overall clinical picture. Heterophilic antibodies in serum or plasma samples may cause interference in immunoassays. Exposure to animal antigens, either in the environment or as part of treatment or imaging procedures, may have circulating anti-animal antibodies present. These antibodies may interfere with the assay reagents to produce unreliable results. Results which are inconsistent with clinical observations indicate the need for additional testing. Blood (Blood, Venous) 10/08/2024 4:22 PM INFORMATICS NURSE SPECIALIST 10/09/2024 12:30 PM INFORMATICS NURSE SPECIALIST Nicolás Tyler MD LAB BLOOD ORDERABLES Final Result Performing Organization Address [facility] de Phone Number [facility] [address] [place] [phone] * (ABNORMAL) Lipid panel (non-fasting) (10/08/2024 4:22 PM INFORMATICS NURSE SPECIALIST) [facility] Cholesterol 206(H) 0 - 199 mg/dL 10/09/2024 3:42 PM INFORMATICS NURSE SPECIALIST [facility] Comment: Recommended by National Cholesterol Education Program (ATP III) -------- Cholesterol Ranges -------- <200 Desirable 200-239 Borderline high >=240 High Triglycerides 202(H) 0 - 149 mg/dL 10/09/2024 3:42 PM INFORMATICS NURSE SPECIALIST [facility] Comment: -------- TRIG Ranges -------- <150 Normal 150-199 Borderline high 200-499 High >=500 Very high HDL 79 40 - 250 mg/dL 10/09/2024 3:42 PM INFORMATICS NURSE SPECIALIST [facility] Comment: -------- HDL Ranges -------- <40 Low 40-59 Normal >=60 Optimal LDL Calculated 87 0 - 99 mg/dL 10/09/2024 3:42 PM INFORMATICS NURSE SPECIALIST [facility] Comment: -------- LDL Ranges -------- <100 Optimal 100-129 Near optimal/above optimal 130-159 Borderline high 160-189 High >=190 Very high Fasting? No 10/08/2024 4:22 PM INFORMATICS NURSE SPECIALIST [facility] Blood (Blood, Venous) 10/08/2024 4:22 PM INFORMATICS NURSE SPECIALIST 10/09/2024 12:37 PM INFORMATICS NURSE SPECIALIST Nicolás Tyler MD LAB BLOOD ORDERABLES Final Result Performing Organization Address [facility] de Phone Number [facility] [address] [place] [phone] * Estimated Glomerular Filtration Rate (eGFR) (10/08/2024 3:39 PM INFORMATICS NURSE SPECIALIST) Pathologist [facility] Estimated Glomerular Filtration Rate (eGFR) >60 10/08/2024 4:05 PM INFORMATICS NURSE SPECIALIST [facility] Comment: GFR calculated from serum creatinine value Chronic Kidney Disease less than 60 mL/min/1.73 m2 Kidney Failure less than 15 mL/min/1.73 m2 Note: effective 08/22/2022: 2020 CKD-EPI Equation used 10/08/2024 3:39 PM INFORMATICS NURSE SPECIALIST 10/08/2024 3:39 PM INFORMATICS NURSE SPECIALIST Nicolás Tyler MD LAB BLOOD ORDERABLES Final Result Performing Organization Address [facility] Co de Phone Number [facility] [address] [place] [address] * (ABNORMAL) Basic metabolic panel (10/08/2024 3:39 PM INFORMATICS NURSE SPECIALIST) Sodium 139 135 - 145 mmol/L 10/08/2024 4:05 PM [facility] [place] Potassium 5.0 3.5 - 5.1 mmol/L 10/08/2024 4:05 PM INFORMATICS NURSE SPECIALIST [facility] [place] Chloride 99 98 - 107 mmol/L 10/08/2024 4:05 PM [facility] [place] [place] CO2 29 22 - 29 mmol/L 10/08/2024 4:05 PM [facility] [place] Creatinine 0.6 0.4 - 1.2 mg/dL 10/08/2024 4:05 PM [facility] [place] BUN 12 5 - 25 mg/dL 10/08/2024 4:05 PM [facility] [place] Glucose 224(H) 70 - 100 mg/dL 10/08/2024 4:05 PM [facility] [place] Calcium, Total,S 9.5 8.4 - 10.2 mg/dL 10/08/2024 4:05 PM [facility] [place] Anion Gap 11 4 - 13 10/08/2024 4:05 PM [facility] [place] Comment: The anion gap is calculated with the following formula: AGAP = Na ? (Cl + CO2). Fasting? Yes 10/08/2024 3:40 PM [facility] [place] Blood (Blood, Venous) 10/08/2024 3:39 PM INFORMATICS NURSE SPECIALIST 10/08/2024 3:39 PM INFORMATICS NURSE SPECIALIST us Nicolás Tyler MD LAB BLOOD ORDERABLES Final Result [facility] [address] [place] [address] * Urinalysis with reflex microscopic (clinic staff collect during appt) (10/08/2024 3:20 PM INFORMATICS NURSE SPECIALIST) Type CLEAN CATCH 10/08/2024 4:07 PM [facility] [place] Color, Urine YELLOW YELLOW 10/08/2024 4:07 PM [facility] [place] Clarity, Urine CLEAR CLEAR 10/08/2024 4:07 PM [facility] [place] Glucose, Urine NEGATIVE NEGATIVE mg/dL 10/08/2024 4:07 PM [facility] [place] Bilirubin, Urine NEGATIVE NEGATIVE 10/08/2024 4:07 PM [facility] [place] Ketones, Urine NEGATIVE NEGATIVE mg/dL 10/08/2024 4:07 PM [facility] [place] Specific [place], Urine 1.020 1.000 ->=1.030 10/08/2024 4:07 PM INFORMATICS NURSE SPECIALIST [facility] [place] Blood, Urine NEGATIVE NEGATIVE 10/08/2024 4:07 PM INFORMATICS NURSE SPECIALIST [facility] [place] pH, Urine 5.5 5.0 - 7.0 10/08/2024 4:07 PM INFORMATICS NURSE SPECIALIST [facility] [place] Protein, Urine NEGATIVE NEGATIVE-TRA CE mg/dL 10/08/2024 4:07 PM INFORMATICS NURSE SPECIALIST [facility] [place] Urobilinogen, Urine 0.2 0.2 - 1.0 E.U./dL 10/08/2024 4:07 PM INFORMATICS NURSE SPECIALIST [facility] [place] Nitrite, Urine NEGATIVE NEGATIVE 10/08/2024 4:07 PM INFORMATICS NURSE SPECIALIST [facility] [place] Leukocytes, Urine NEGATIVE NEGATIVE 10/08/2024 4:07 PM [facility] [place] Urine (Urine, Clean Catch) 10/08/2024 3:20 PM INFORMATICS NURSE SPECIALIST 10/08/2024 4:06 PM INFORMATICS NURSE SPECIALIST us Nicolás Tyler MD LAB URINE ORDERABLES Final Result Performing Organization Address City/[facility]/ZIP Co de Phone Number [facility] [address] [place] [address] * ECG 12 lead (10/08/2024) us Nicolás Tyler MD ECG ORDERABLES Final Resul t Performing Organization Address City/[facility]/ZIP Co de Phone Number [facility] from Last 3 Months Insurance [employer] Care 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 Pain Clinic [facility] Consulting Physician Neurology 01/26/20
--- NOTE | 2024-11-23 13:54 | ED.SOB ---
HPI - SOB/Dyspnea General Date Seen: 11/23/24 Chief Complaint: Shortness of Breath/Dyspnea Stated Complaint: Shortness of breath Time Seen by Provider: 11/23/24 13:16 Source: patient Mode of arrival: ambulatory Limitations: no limitations History of Present Illness HPI Narrative: Patient is a 64-year-old female with a history of coronary artery disease, COPD, CHF presenting to the emergency department for chest pain and shortness of breath. She states for the past week and a half she has been having increased shortness of breath and a cough. She states she is coughing so much is causing severe chest pain every time she coughs. She worse oxygen at night but typically does not wear oxygen during the day. States she has been checking oxygen saturation at home and has been in the mid to high 80s and due to that she has been wearing oxygen 18/03. She did see a primary care provider on 11/17/2024 was started on prednisone amoxicillin. This is not improved her symptoms at all. She states 2 days ago she had a fever of 100.4. Was tested negative for COVID and flu on 11/17. Has been using her home inhalers with some improvement in her symptoms. Has been feeling lightheaded and dizzy when she is up and ambulating. Lightheadedness improved but she is laying down. States that this pain seems to be midsternal and radiates all around her chest that is mostly associated with coughing. No history of blood clots. States she quit smoking in 2004. Denies diarrhea, constipation, headache, weakness, numbness. No other concerns noted Related Data Home Medications ?Medication ?Instructions ?Recorded ?Confirmed aspirin 81 mg chewable tablet 81 mg PO DAILY 03/02/22 11/23/24 clopidogrel 75 mg tablet (Plavix) 75 mg PO DAILY 03/02/22 11/23/24 ezetimibe 10 mg tablet (Zetia) 10 mg PO DAILY 03/02/22 11/23/24 ipratropium 0.5 mg-albuterol 3 mg 3 ml inhalation Q6H PRN 03/02/22 03/25/24 (2.5 mg base)/3 mL nebulization soln isosorbide mononitrate 60 mg 120 mg PO DAILY 03/02/22 11/23/24 tablet,extended release 24 hr levothyroxine 50 mcg tablet 50 mcg PO DAILY 03/02/22 11/23/24 (Synthroid) magnesium oxide 400 mg PO DAILY 03/02/22 11/23/24 meclizine 25 mg tablet 25 mg PO TID PRN 03/02/22 11/23/24 metoprolol succinate 50 mg 50 mg PO DAILY 03/02/22 11/23/24 tablet,extended release 24 hr naloxone 4 mg/actuation nasal spray 4 mg intranasal Q2-3M PRN 03/02/22 11/23/24 nitroglycerin 0.4 mg sublingual 0.4 mg sublingual Q5M 03/02/22 11/23/24 tablet (Nitrostat) ondansetron HCl 4 mg tablet 4 mg PO Q8H PRN 03/02/22 11/23/24 rosuvastatin 20 mg tablet (Crestor) 20 mg PO HS 03/02/22 11/23/24 sennosides 8.6 mg-docusate sodium 2 tab PO BID 03/02/22 11/23/24 50 mg tablet sodium chloride 0.65 % nasal spray 2 spray intranasal Q2H PRN 03/02/22 03/25/24 aerosol (Nasal [place] (sodium chloride)) albuterol sulfate 90 mcg/actuation 2 puff inhalation Q4H PRN 03/30/22 11/23/24 aerosol inhaler empagliflozin 25 mg tablet 25 mg PO DAILY 12/12/22 03/25/24 (Jardiance) acetaminophen 500 mg tablet 1,000 mg PO TID PRN 10/22/23 03/25/24 alprazolam 0.5 mg tablet,extended 0.5 mg PO Q12H 10/22/23 03/25/24 release 24 hr baclofen 10 mg tablet 10 mg PO BID 10/22/23 03/25/24 cetirizine 10 mg tablet 10 mg PO DAILY 10/22/23 11/23/24 fluticasone fur. 100 mcg-umeclid 1 ea inhalation DAILY 10/22/23 11/23/24 62.5 mcg-vilant 25 mcg inhalat.powder (Trelegy Ellipta) methocarbamol 750 mg tablet 750 mg PO HS 10/22/23 11/23/24 mirtazapine 45 mg tablet 45 mg PO HS 10/22/23 11/23/24 omega 1-jie-zui-fish oil 1,000 mg 1 cap PO HS 10/22/23 11/23/24 (120 mg-180 mg) capsule (Fish Oil) omeprazole 20 mg capsule,delayed 20 mg PO DAILY 10/22/23 11/23/24 release tiotropium bromide 2.5 2 puff inhalation DAILY 10/22/23 03/25/24 mcg/actuation mist for inhalation (Spiriva Respimat) tizanidine 4 mg tablet 4 mg PO Q6H PRN 10/22/23 03/25/24 topiramate 25 mg tablet (Topamax) 25 mg PO DAILY 10/22/23 11/23/24 torsemide 20 mg tablet 20 mg PO DAILY 10/22/23 11/23/24 venlafaxine 75 mg capsule,extended 225 mg PO DAILY 10/22/23 03/25/24 release 24 hr Previous Rx's ?Medication ?Instructions ?Recorded potassium chloride 20 mEq 40 meq (2 x 20 mEq) PO DAILY #60 04/02/22 tablet,extended release(part/cryst) tabs buprenorphine HCl 2 mg sublingual 2 mg sublingual BID #60 tabs 10/28/23 tablet Allergies Allergy/AdvReac Type Severity Reaction Status Date / Time sumatriptan Allergy Severe Anaphylaxis Verified 11/23/24 13:13 buspirone Allergy Intermediate Rash Verified 11/23/24 13:13 fentanyl Allergy Intermediate Verified 11/23/24 13:13 gabapentin Allergy Intermediate gi upset Verified 11/23/24 13:13 niacin Allergy Intermediate Verified 11/23/24 13:13 trazodone Allergy Intermediate Verified 11/23/24 13:13 atorvastatin Allergy Mild myalgia Verified 11/23/24 13:13 codeine Allergy Mild itching Verified 11/23/24 13:13 rizatriptan Allergy Mild Flushing Verified 11/23/24 13:13 Review of Systems Status of ROS: Reports: 10 or more systems reviewed and unremarkable except as noted in History and below [facility] Medical History Noncompliance with medication regimen ?Z91.148 - Patient's other noncompliance with medication regimen for other reason (ICD-10) Acute on chronic respiratory failure with hypoxia and hypercapnia ?J96.21 - Acute and chronic respiratory failure with hypoxia (ICD-10) ?J96.22 - Acute and chronic respiratory failure with hypercapnia (ICD-10) Chronic narcotic use ?F11.90 - Opioid use, unspecified, uncomplicated (ICD-10) Hypokalemia ?E87.6 - Hypokalemia (ICD-10) Encephalopathy acute ?G93.40 - Encephalopathy, unspecified (ICD-10) Hyperkalemia ?E87.5 - Hyperkalemia (ICD-10) Hyponatremia ?E87.1 - Hypo-osmolality and hyponatremia (ICD-10) Coronary artery disease ?I25.10 - Atherosclerotic heart disease of [place] coronary artery without angina pectoris (ICD-10) Congestive heart failure ?I50.9 - Heart failure, unspecified (ICD-10) Diabetes mellitus type 2 in obese ?E11.69 - Type 2 diabetes mellitus with other specified complication (ICD-10) ?E66.9 - Obesity, unspecified (ICD-10) Respiratory failure ?J96.90 - Respiratory failure, unspecified, unspecified whether with hypoxia or hypercapnia (ICD-10) Acute hyponatremia ?E87.1 - Hypo-osmolality and hyponatremia (ICD-10) Congestive heart failure ?I50.9 - Heart failure, unspecified (ICD-10) Hypothyroidism ?E03.9 - Hypothyroidism, unspecified (ICD-10) Type 2 diabetes mellitus with circulatory disorder, without long-term current use of insulin ?E11.59 - Type 2 diabetes mellitus with other circulatory complications (ICD-10) Graves disease ?E05.00 - Thyrotoxicosis with diffuse goiter without thyrotoxic crisis or storm (ICD-10) SOCORRO (obstructive sleep apnea) ?G47.33 - Obstructive sleep apnea (adult) (pediatric) (ICD-10) CAD (coronary artery disease) ?I25.10 - Atherosclerotic heart disease of [place] coronary artery without angina pectoris (ICD-10) Recurrent major depression ?F33.9 - Major depressive disorder, recurrent, unspecified (ICD-10) History of nicotine dependence ?Z87.891 - Personal history of nicotine dependence (ICD-10) Chronic pain syndrome ?G89.4 - Chronic pain syndrome (ICD-10) Arthropathy of spinal facet joint ?M47.819 - Spondylosis without myelopathy or radiculopathy, site unspecified (ICD-10) Allergic rhinitis due to pollen ?J30.1 - Allergic rhinitis due to pollen (ICD-10) Insomnia ?G47.00 - Insomnia, unspecified (ICD-10) Hyperlipidemia ?E78.5 - Hyperlipidemia, unspecified (ICD-10) Lumbar spinal stenosis ?M48.061 - Spinal stenosis, lumbar region without neurogenic claudication (ICD-10) Opioid dependence ?F11.20 - Opioid dependence, uncomplicated (ICD-10) Refractory migraine ?G43.919 - Migraine, unspecified, intractable, without status migrainosus (ICD-10) Secondary polycythemia ?D75.1 - Secondary polycythemia (ICD-10) PTSD (post-traumatic stress disorder) ?F43.10 - Post-traumatic stress disorder, unspecified (ICD-10) Panic disorder ?F41.0 - Panic disorder [episodic paroxysmal anxiety] (ICD-10) Anxiety ?F41.9 - Anxiety disorder, unspecified (ICD-10) GERD (gastroesophageal reflux disease) ?K21.9 - Gastro-esophageal reflux disease without esophagitis (ICD-10) Chest pain ?R07.9 - Chest pain, unspecified (ICD-10) Edema ?R60.9 - Edema, unspecified (ICD-10) Acute on chronic heart failure with preserved ejection fraction ?I50.33 - Acute on chronic diastolic (congestive) heart failure (ICD-10) CO2 retention ?E87.2 - Acidosis (ICD-10) Cluster B personality disorder ?F60.89 - Other specific personality disorders (ICD-10) Leukocytosis ?D72.829 - Elevated white blood cell count, unspecified (ICD-10) Acute and chronic respiratory failure (duddg-kf-yhqkjyz) ?J96.20 - Acute and chronic respiratory failure, unspecified whether with hypoxia or hypercapnia (ICD-10) COPD (chronic obstructive pulmonary disease) ?J44.9 - Chronic obstructive pulmonary disease, unspecified (ICD-10) Surgical History H/O heart artery stent ?Z95.5 - Presence of coronary angioplasty implant and graft (ICD-10) Failed CABG (coronary artery bypass graft) ?T82.218A - Other mechanical complication of coronary artery bypass graft, initial encounter (ICD-10) Social History Narrative: Patient lives alone in [place]. Former smoker. She does not drink alcohol. Her healthcare power of transactional attorney is her future [id number], Mica. Requests Full Code status What is your current living situation?: I presently have a place to live Problems where you live: no known problems Problems where you live details: NA In the past 12 months, utilities in danger of being shut off: no In past 12 months, lack of transportation kept you from medical appts, meetings, work, or getting things needed for daily living: no In the past 12 mos, have been you worried that your food would run out before you had money to buy more?: never true In the past 12 mos, the food you bought just didn't last and you didn't have money to buy more?: never true Highest level of school completed/degree received: some college, no degree Smoking Status: Former smoker What tobacco products do you use: cigarettes Smoking quit date/years: >15 years ago Do you use any of these nicotine containing products: None Second hand tobacco smoke exposure: Yes How often do you have a drink containing alcohol: never How often do you have six or more drinks on one occasion: Never AUDIT-C Alcohol total score: 0 Non-prescribed substance use: denies use Caffeine: Yes How often does anyone, including family, friends and others, physically hurt you: never How often does anyone, including family, friends and others, insult or talk down to you: never How often does anyone, including family, friends and others, threaten you with harm: never How often does anyone, including family, friends and others, scream or curse at you: never service: No Exam Narrative: Exam Narrative: Const: Well-nourished, Well-developed, in moderate distress Eyes: PERRL, no conjunctival injection, and symmetrical lids HENT: Atraumatic external nose and ears. Moist mucous membranes. Neck: Symmetric, trachea midline, No thyromegaly. CVS: RRR, No murmurs or gallops. Peripheral pulses 2+ and equal in all extremities RESP: Mildly increased respiratory effort with diffuse wheezing heard on auscultation GI: Nontender/Nondistended, No rebound or guarding. MSK:Extremities w/o deformity, Normal Active ROM Skin: Warm, Dry. No rashes or lesions. Neuro: Normal Muscle tone, No focal neurological deficits. Psych: Awake, Alert, & Oriented x3. Appropriate mood and affect. Const: Vital Signs, click to edit/add: Vital Signs - 24 hr 11/23/24 13:07 11/23/24 13:32 11/23/24 14:32 Temperature 97.1 F L Pulse Rate 67 67 Pulse Rate [Pulse Oximeter] 78 Respiratory Rate 24 20 18 Blood Pressure 132/88 116/78 Blood Pressure [Ri ght Upper Arm] 178/84 H Pulse Oximetry 96 96 98 Oxygen Delivery Me thod Nasal Cannula Nasal Cannula Nasal Cannula Oxygen Flow Rate 2 3 3 11/23/24 15:02 11/23/24 15:21 11/23/24 15:28 Temperature Pulse Rate 68 Pulse Rate [Pulse Oximeter] Respiratory Rate 18 Blood Pressure 134/76 Blood Pressure [Ri ght Upper Arm] Pulse Oximetry 94 84 L 85 L Oxygen Delivery Me thod Nasal Cannula Nasal Cannula Oxygen Flow Rate 3 3 11/23/24 15:34 11/23/24 15:45 11/23/24 16:00 Temperature Pulse Rate 66 69 Pulse Rate [Pulse Oximeter] Respiratory Rate 18 18 18 Blood Pressure 113/44 L Blood Pressure [Ri ght Upper Arm] Pulse Oximetry 92 98 91 Oxygen Delivery Me thod Nasal Cannula Nasal Cannula Nasal Cannula Oxygen Flow Rate 3 3 3 Course Vital Signs Vital signs: Initial Vital Signs Respiratory Depth Normal 11/23/24 13:06 Vital Signs Temperature 97.1 F L 11/23/24 13:07 Pulse Rate 78 11/23/24 13:07 Respiratory Rate 24 11/23/24 13:07 Blood Pressure 178/84 H 11/23/24 13:07 Pulse Oximetry 96 11/23/24 13:07 Oxygen Delivery Method Nasal Cannula 11/23/24 13:07 Oxygen Flow Rate 2 11/23/24 13:07 Temperature 97.1 F L 11/23/24 13:07 Pulse Rate 69 11/23/24 16:00 Respiratory Rate 18 11/23/24 16:00 Blood Pressure 113/44 L 11/23/24 15:34 Pulse Oximetry 91 11/23/24 16:00 Oxygen Delivery Method Nasal Cannula 11/23/24 16:00 Oxygen Flow Rate 3 11/23/24 16:00 Medications Administered Medications: Discontinued Medications Generic Name Dose Route Start Last Admin Trade Name Freq PRN Reason Stop Dose Admin Albuterol/Ipratropium 1 [facility] 11/23/24 13:56 11/23/24 14:26 Iprat-Albut 0.5-2.5 Mg/3 Ml [facility] 11/23/24 13:57 1 neb ONCE ONE Administration Albuterol/Ipratropium 1 [facility] 11/23/24 15:14 11/23/24 15:36 Iprat-Albut 0.5-2.5 Mg/3 Ml [facility] 11/23/24 15:15 1 neb ONCE ONE Administration Ketorolac Tromethamine 15 mg 11/23/24 13:48 11/23/24 14:24 Ketorolac 15 Mg/Ml Inj IVP 11/23/24 13:49 15 mg ONCE ONE Administration Methylprednisolone Sodium Succinate 125 mg 11/23/24 15:14 11/23/24 15:37 Methylprednisolone Sod Succ 62.5 Mg/Ml (125) IVP 11/23/24 15:15 125 mg ONCE ONE Administration Morphine Sulfate 4 mg 11/23/24 15:14 11/23/24 15:42 Morphine 4 Mg/Ml Inj IVP 11/23/24 15:15 4 mg ONCE ONE Administration MDM - SOB/Dyspnea MDM Narrative Medical decision making narrative: Patient is a 64-year-old female presenting to emergency department for chest pain and shortness of breath. The differential diagnosis of shortness of breath and chest pain is broad and includes common etiologies such as COPD, asthma, pneumonia, viral syndrome, etc. More serious etiologies considered include PE, CHF, coronary artery disease, pneumothorax, aortic dissection, aortic aneurysm. Her chest pain seems to be more musculoskeletal in nature as it is mostly there when she coughs but at this time I cannot rule out a PE. D-dimer will be ordered. Her vital signs look away stable an aortic dissection and aortic aneurysm seem unlikely. She does have history of COPD and has wheezing on exam. DuoNeb will be ordered along with Solu-Medrol. Her fever is concerning for a pneumonia. Will hold off on imaging as I will want to do a CT scan the chest. Will do a CT versus CTA pending D-dimer results. Toradol given for her chest pain. Will also order EKG, troponin, BNP, COVID/flu/RSV. CBC shows a white count of 15. She was recently on steroids and she does appear to have a chronically elevated white blood cell count. Lactate returned within normal limits. CMP shows no concerning abnormalities. BNP and troponin shows no concerning findings. EKG appears normal. Viral swabs are negative. She was having some improvement with her shortness of breath after the DuoNeb. She is still quite wheezy but improved. Will order noted DuoNebs. Will order some morphine for her chest pain. Will do a CT scan without contrast. This was reviewed by myself and the radiologist shows no acute concerning abnormalities. Cannot definitively rule out any pneumonia as pneumonia so precipitater for COPD. After the repeat DuoNeb she was still very wheezy. She states it helps for short time and she gets very short of breath again. Lab Data Labs: Lab Results 11/23/24 11/23/24 Range/Units 14:10 14:19 WBC 15.28 H (4.50-11.00) K/uL RBC 4.90 (4.00-5.20) m/uL Hgb 15.5 (12.0-16.0) gm/dL Hct 47.5 (33.0-51.0) % MCV 97 (80-100) fL MCH 32 (26-34) pg MCHC 33 (32-36) gm/dL RDW Coeff of Renetta 12.3 (11.5-15.5) % Plt Count 295 (140-440) K/uL Neut % (Auto) 73.2 H (42.0-72.0) % Lymph % (Auto) 17.5 L (20-44) % Campbell % (Auto) 6.3 (0.0-11.0) % Eos % (Auto) 0.1 (0.0-7.0) % Baso % (Auto) 0.3 (0.0-3.0) % Neut # (Auto) 11.20 H (1.7-7.0) K/uL Lymph # (Auto) 2.70 (0.90-2.90) K/uL Campbell # (Auto) 1.00 H (0.00-0.90) K/UL Eos # (Auto) 0.00 (0.00-0.50) K/uL Baso # (Auto) 0.00 (0.00-0.30) K/uL Abs Immat Gran (auto) 0.40 H (0.00-0.30) K/uL Imm/Tot Granulo (auto) 2.6 % D-Dimer Quant (PE/DVT) < 0.27 (0.00-0.50) ug/ml Sodium 134 L (135-149) mmol/L Potassium 4.6 (3.6-5.1) mmol/L Chloride 95 L (96-114) mmol/L Carbon Dioxide 31 (20-32) mmol/L Anion Gap 8 (7-15) mEq/L BUN 19 (7-30) mg/dL Creatinine 0.6 (0.5-1.5) mg/dL Estimated Creat Clear 48.43 Estimated GFR 100 ml/min Glucose 206 H (60-115) mg/dL Lactate 1.7 (0.5-1.9) mmol/L Calcium 8.6 (8.4-10.6) mg/dL Troponin I < 0.01 (0.01-0.04) ng/mL NT-Pro-B Natriuret Pep 240 pg/mL SARS-CoV-2 (PCR) Negative SARS-CoV-2 (Negative) Influenza Type A (PCR) Negative PCR FLU A (Negative) Influenza Type B (PCR) Negative PCR FLU B (Negative) RSV (PCR) Negative PCR RSV (Negative) Imaging Data CT scan chest: Attestation: I have reviewed the pertinent imaging results. Radiologist's impression: 1. No CT evidence of an acute process involving the thorax. 2. Mild centrilobular emphysematous changes with upper lobe predominance. 3. There are a few tiny sub 4 millimeter, sub pleural pulmonary nodules bilaterally, likely benign. If patient is at high risk for developing lung malignancy consider repeat CT chest in 1 year; otherwise, no routine follow-up imaging is needed. Please note that all CT scans at this facility use dose modulation, iterative reconstruction, and/or weight-based dosing when appropriate to reduce radiation dose to as low as reasonably achievable. Dictated by Kory Wan MD @ 11/23/2024 3:38:16 PM ECG Data Attestation: I personally reviewed and interpreted this ECG as follows: Prior ECG tracings: available for review Interpretation: Normal sinus rhythm with rate 74 beats per minute, normal intervals, normal axis, no ST or T-wave abnormality. Appears similar previous EKG on file. Discharge Plan Discharge Clinical Impression: COPD (chronic obstructive pulmonary disease) Qualifiers: COPD type: unspecified COPD Qualified Code(s): J44.9 - Chronic obstructive pulmonary disease, unspecified Patient Disposition: Admitted As Observation Condition: Stable
--- OUTSIDE RECORDS SUMMARY | 2024-11-23 13:56 | XMS_ITS | Encounter Summary ---
Author Organization [facility] er Address [address] [place] [address] Care Team Providers Care Educational Director Name Role Phone Nicolás Tyler MD Primary Care Provider [phone] Reason for Visit * Reason Comments Consult CAD/HF * Consultation (Routine) - Authorized Specialty Diagnoses / Procedures Referred By Contac t Referred To Contact Cardiology Diagnoses Coronary artery disease involving pilot point coronary artery of pilot point heart without angina pectoris Moderate mixed hyperlipidemia not requiring statin therapy Heart failure with preserved ejection fraction, unspecified HF chronicity (HCC) Nicol[place] [address] [place] [phone] Phone: tel: fax: CARDIOLOGY [address] [place] [address] Phone: tel: fax: Referral ID Status Reason Start Date Expiration Date Visits Requested Visits Authorized [id number] Authorized Specialty Services Required 10/08/2024 10/08/2025 1 1 Encounter Details Date Type Department Care Team (Late st Contact Info) Description 11/05/2024 1:40 PM CDT Consult [place] [address] [place] [address] Jose Lincoln MD [address] [place] [address] Coronary artery disease involving pilot point coronary artery of pilot point heart without angina pectoris (Primary Dx); Heart [...] Body Mass Index 31.15 10/08/2024 2:48 PM 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 female who is here for recent transfer of care, extensive cardiovascular history and comorbidities. The patient has the following abbreviated history: This is a very pleasant patient previously followed primarily through the [facility] system in the [place], referred by Dr. Tyler to establish cardiovascular care and follow-up. She has comorbidities of type 2 diabetes, class I obesity, chronic pain syndrome on opioids and controlled substance agreement, PTSD, stage IIIa CKD, COPD, obstructive sleep apnea. From a cardiovascular perspective, her history is mostly pertinent for a history of coronary arterydisease with previous bypass surgery in 2004 at [facility] with a saphenous vein graft to right coronary artery and a saphenous vein graft to mid LAD. 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 There was nothing for PCI, and she was discharged on continued medical therapy.She does have COPD and some chronic pain issues. She has anxiety and some atypical chest pain symptoms which are chronic. Most recent echocardiogram exactly a year ago through the [facility] system, with mild calcific aortic stenosis. Overall, [...] mg total) 1 (one) time each day [employer] Blood Glucose Monitoring Suppl (FIFTY50 GLUCOSE METER [...] 1 (one) time each day [employer] (AIMJEP-F-WPMIM LOCKING BRACKET) [facility] New CPAP machine for home use at [...] Date TSH 1.51 10/08/2024 Transthoracic echocardiogram 10/24/2023, [facility] Final Impressions: 1. Normal LV size, normal wall thickness, estimated EF of 65 - 70%. 2. Normal RV size and systolic function. 3. The aortic valve is trileaflet and sclerotic, mild stenosis and no regurgitation. 4. Unable to estimate PA pressures due to insufficient tricuspid jet. VISIT DIAGNOSES 1. Coronary artery disease involving pilot point coronary artery of pilot point heart without angina pectoris 2. Heart failure [...] Chronic obstructive pulmonary disease, unspecified COPD type ([facility]) ASSESSMENT / PLAN Overall, given [...] questions or changes in status/developments. MARGIN CODE 60523 Total time: 65 min, including electronic medical records and diagnostic testing review, direct qicm-rm-hczv contact, counseling and education, and preparation of clinical documentation. documented in this encounter Plan of Treatment Upcoming Encounters Date Type Department Care Team (Late st Contact Info) Description 01/26/2025 1:00 PM CDT Office Visit [address] [address] 02/17/2025 2:20 PM CDT Office Visit [address] [address] Nicolás [place] [address] [place] [phone] 02/18/2025 1:20 PM CDT Office Visit [address] [address] Jose Lincoln MD [address] [place] [address] Scheduled Orders Name Type Priority Associated Diagnoses Orde r Schedule Lipid panel (fasting) Lab Routine Coronary artery disease involving pilot point coronary artery of pilot point heart without angina pectoris Heart failure with preserved ejection fraction, unspecified HF chronicity (HCC) History of coronary artery bypass graft x 2 Expected: 02/05/2025 (Approximate), Expires: 11/05/2025 documented as of this encounter Visit Diagnoses Diagnosis Coronary artery disease involving pilot point coronary artery of pilot point heart without angina pectoris- Primary Heart failure [...] (HCC) documented in this encounter Care Teams Educational Director Relationship Specialty Start Date End Date Nicolás Tyler MD [address] [place] [address] PCP - General Family Medicine 10/08/24 Dr Esposito Consulting Physician 01/26/20 [facility] Pain Clinic [facility] Consulting Physician Neurology 01/26/20 documented as of this encounter
--- OUTSIDE RECORDS SUMMARY | 2024-11-23 13:56 | XMS_ITS | Encounter Summary ---
Author Organization [facility] er Address [address] [place] [address] Care Team Providers Care Product Accountant Name Role Phone Nicolás Tyler MD Primary Care Provider [phone] Reason for Visit * Reason Onset Date Comments Referral to be faxed 11/17/2024 Encounter Details Date Type Department Care Team ([facility] st Contact Info) Description 11/17/2024 Telephone [place] [address] [place] [address] Nicolás Tyler MD [facility] [address] [place] [address] Referral to be faxed Social History Tobacco [...] from your doctor or pharmacy? Never 11/17/2024 [place] Utilities Answer Date Recorded In the past 12 months has e [employer] gas, oil, or water [employer] threatened to shut off services in your [...] How often do you attend chur or sikh services? More than 4 times per year 11/17/2024 Do you belong to any clubs o r organizations such as catholic groups, unions, [employer] or athletic groups, or school groups? No [...] Date Recorded PHQ-9 Total Score 6 11/17/2024 [facility] - Occupational [...] any time in the past 12 m [facility], were you homeless or living in a senior living (including now)? No 11/17/2024 Interpersonal Safety Questionnaire [...] Description 01/26/2025 1:00 PM CDT Office Visit [address] [address] 02/17/2025 2:20 PM CDT Office Visit [address] [address] Nicolás Tyler MD [address] [address] 02/18/2025 1:20 PM CDT Office Visit [address] [address] Jose Lincoln MD [address] [place] [address] documented as of this encounter Visit Diagnoses Not on filedocumented in this encounter Additional Health Concerns Infection Onset Date Last Indicated Resolved Time COVID-19 Rule Out 11/17/2024 11/17/2024 11/17/2024 3:34 PM CDT documented as of this encounter Care Teams Product Accountant Relationship Specialty Start Date End Date Nicolás Tyler MD [address] [phone] PCP - General Family Medicine 10/08/24 Dr Esposito Consulting Physician 01/26/20 [facility] Pain Clinic [facility] Consulting Physician Neurology 01/26/20 documented as of this encounter
--- OUTSIDE RECORDS SUMMARY | 2024-11-23 13:56 | XMS_ITS | Encounter Summary ---
Author Organization [facility] er Address [address] [place] [address] Care Team Providers Care Law Instructor Name Role Phone Nicolás Tyler MD Primary Care Provider [phone] Reason for Visit * Reason Onset Date Comments Requesting cough medication 11/19/2024 Encounter Details Date Type Department Care Team ([facility] Contact Info) Description 11/19/2024 Telephone [place] [address] [place] [address] Nicolás Tyler MD [facility] [address] [place] [address] Requesting cough medication Social History Tobacco Use [...] doctor or pharmacy? Never 11/17/2024 [facility] Utilities Answer Date Recorded In the past 12 months has e [employer] gas, oil, or water [employer] threatened to shut off services in your [...] often do you attend chur ch or episcopal services? More than 4 times per year 11/17/2024 Do you belong to any clubs o r organizations such as worship groups, unions, fraternal or athletic groups, or [...] Date Recorded PHQ-9 Total Score 6 11/17/2024 [facility] - Occupational [...] any time in the past 12 m [facility], were you homeless or living in a alf (including now)? No 11/17/2024 Interpersonal Safety Questionnaire [...] Description 01/26/2025 1:00 PM CDT Office Visit [address] [address] 02/17/2025 2:20 PM CDT Office Visit [address] [address] Nicolás Tyler MD [address] [address] 02/18/2025 1:20 PM CDT Office Visit [address] [address] [place] [address] [place], [place] [phone] documented as of this encounter Visit Diagnoses Not on filedocumented in this encounter Care Teams Law Instructor Relationship Specialty Start Date End Date Nicolás [place] [address] [place] [phone] PCP - General Family Medicine 10/08/24 Dr Esposito Consulting Physician 01/26/20 [facility] Pain Clinic [facility] Consulting Physician Neurology 01/26/20 documented as of this encounter
--- OUTSIDE RECORDS SUMMARY | 2024-11-23 13:56 | XMS_ITS ---
Author Organization [facility] Care Team Providers Care Priming Mixture Carrier Name Role Phone Cinda Suleman Unavailable Unavailable Allergies and adverse reactions Code CodeSystem Substance Reaction Severity StartDate Concern Status CODEINE, IMITREX , MAXALT, LATEX, NIACIN Unknown Unknown active Care Team Name Role Address Phone Organization Dates Suleman Loo [facility] [address] [address], [place], [address], [place] (Office): : [facility] 07/01/2011 - 07/07/2011 Immunizations Immunization Status Vaccine [...] Current Smoking Status Tobacco smoking consumption unknown [id number] SNOMED CT Sex Assigned At Female 1960 47410-7 LOINC Vital Signs Code Code System Vitals Name Values and Units Timing Information 8302-2 LOINC Height Value=64.0 Units=Inches 07/09/2011 2339-0 [facility] Blood Sugar Qfdcs=930.0 Units=mg/dL 07/04/2011 55036-3 [facility] Weight Bgopo=150.6 Units=Lbs 02/2011 9279-1 [facility] Respiratory Rate Value=18.0 Units=/m in 07/02/2011 8462-4 [facility] Blood Pressure-Diastolic Value=77 Un its=mmHg 07/02/2011 8480-6 [facility] Blood Pressure-Systolic Wfjpq=434 Un its=mmHg 07/02/2011 8310-5 [facility] Body Temperature Value=97.1 Units= F 07/02/2011 8867-4 [facility] Heart rate Value=91.0 Units=/min 02/2011 05106-3 [facility] O2 % dC Oximetry Value=96.0 Units= % 07/02/2011
--- OUTSIDE RECORDS SUMMARY | 2024-11-23 13:57 | XMS_ITS | Encounter Summary ---
Author Organization [facility] er Address [address] [place] [address] Care Team Providers Care Bread Racker Name Role Phone Levi North MD Primary Care Provider [phone] Reason for Referral * Consultation (Routine) - Authorized Specialty Diagnoses / Procedures Referred By Jenifer anderson Referred To Contact Ophthalmology Diagnoses Type 2 diabetes mellitus with other circulatory complication, without long-term current use of insulin (HCC) Levi North MD [address] [facility] [address] [place] [address] Phone: tel: fax: Ophthalmology [address] [place] [address] Phone: tel: fax: Referral ID Status Reason Start Date Expiration Date Visits Requested Visits Authorized [id number] Authorized Specialty Services Required 11/17/2024 11/17/2025 1 1 Scheduling Instructions Please call the Ophthalmology Absorption And Adsorption Engineer desk at [phone] to schedule an appointment. * Consultation (Routine) - Pending Review Specialty Diagnoses / Procedures Referred By Jenifer anderson Referred To Contact Diagnoses Screening for osteoporosis Levi North MD [address] [facility] [address] [place] [address] Phone: tel: fax: Referral ID Status Reason Start Date Expiration Date V isits Requested Visits Authorized [id number] Pending Review 11/17/2024 11/18/2025 1 1 * Consultation (Routine) - Pending Review Specialty Diagnoses / Procedures Referred By Jenifer anderson Referred To Contact Diagnoses Encounter for screening mammogram for malignant neoplasm of breast Levi North MD [address] [place] [phone] Phone: tel: fax: Referral ID Status Reason Start Date Expiration Date V isits Requested Visits Authorized [id number] Pending Review 11/17/2024 11/18/2025 1 1 * Imaging (Routine) - Authorized Specialty Diagnoses / Procedures Referred By Jenifer anderson Referred To Contact Radiology Diagnoses Screening for osteoporosis Procedures Dexa bone density axial skeleton Levi North MD [address] [place] [phone] Phone: tel: fax: Referral ID Status Reason Start Date Expiration Date V isits Requested Visits Authorized [id number] Authorized 11/17/2024 11/17/2025 1 1 Reason for Visit * Reason Comments Welcome To Medicare Encounter Details Date Type Department Care Team (Latest Contact Info) Description 11/17/2024 2:20 PM CDT Office Visit [address] [address] Levi North MD [address] [place] [phone] Medicare welcome visit (Primary Dx); Fatigue, unspecified type; Acute cough; History of coronary artery bypass graft x 2; Mild aortic stenosis by prior echocardiogram; Graves' disease; Type 2 diabetes mellitus with other circulatory complication, without long-term current use of insulin (HCC); Stage 3a chronic kidney disease (HCC); Coronary artery disease involving [place] coronary artery of [place] heart without angina pectoris; Moderate mixed hyperlipidemia [...] from your doctor or pharmacy? Never 11/17/2024 [facility] Utilities Answer Date Recorded In the past 12 months has e [employer], oil, or water [employer] threatened to shut off services in your [...] do you attend up health system or islam services? More than 4 times per year 11/17/2024 Do you belong to any clubs o r organizations such as islam groups, unions, fraternal or athletic groups, or [...] Date Recorded PHQ-9 Total Score 6 11/17/2024 [facility] - Occupational Stress Questionnaire Answer Date Recorded [...] any time in the past 12 m [facility], were you homeless or living in a jail (including now)? No 11/17/2024 Interpersonal Safety Questionnaire [...] bone density scan 2. Please report to [facility] [place] to do your screening mammogram [...] C Screening: Recommended for those born between 4158-9712, receiving blood transfusion before 1991, illicit injection [...] you receive care from providers outside of [facility]: Yes (11/17/2024 2:13 PM) Provider Information:: [facility] in [place], [place] (11/17/2024 2:13 PM) Do you have a Home Health Agency or receive Silk Screen Printer Machine Assistance?: No (11/17/2024 2:13 PM) Equipment used [...] 11/17/2024 2:20 PM CDT Referral faxed to [facility] for mammo; fax [phone]. * Sole Zaldivar - 11/17/2024 2:20 PM CDT Referral faxed to [facility] for RAD for DEXA scan; fax [phone]. documented in this encounter Miscellaneous Notes * Addendum Note - Levi North MD - 11/17/2024 2:20 PM CDTAddended by: LEVI NORTH on: 11/19/2024 01:40 PM Modules accepted: Orders documented in this encounter Plan of Treatment Upcoming Encounters Date Type Department Care Team (Late st Contact Info) Description 01/26/2025 1:00 PM CDT Office Visit [address] [address] 02/17/2025 2:20 PM CDT Office Visit [address] [address] Levi North MD [address] [place] [phone] 02/18/2025 1:20 PM CDT Office Visit [address] [address] [place] [address] [place] [address] Scheduled Orders Name Type Priority Associated Diagnoses Orde r Schedule Dexa bone density axial skeleton Imaging Routine Screening for osteoporosis Expected: 11/17/2024, Expires: 11/17/2025 Cologuard Lab Routine Screen for colon cancer 1 Occurrences starting 11/17/2024 until 11/17/2025 Scheduled Referrals Name Type Priority Associated Diagnoses Order Schedule Ambulatory External Referral [place] [place]; Radiology Outpatient Referral Routine Encounter for screening mammogram for malignant neoplasm of breast Ordered: 11/17/2024 Ambulatory External Referral [place] [facility]; Radiology Outpatient Referral Routine Screening [...] of auto) (11/17/2024 3:15 PM CDT) Pathologist [facility] Manual Differential PERFORMED 11/18/2024 1:48 PM CDT [facility] Neutrophils % 59.0 % 11/18/2024 1:48 PM T [facility] Lymphocytes % 27.0 % 11/18/2024 1:48 PM T [facility] Monocytes % 12.0 % 11/18/2024 1:48 PM [facility] Eosinophils % 0.00 % 11/18/2024 1:48 PM T [facility] Basophils % 2.0 % 11/18/2024 1:48 PM T [facility] Absolute Neutrophils 4.2 1.7 - 7.0 K/uL 11/18/2024 1:48 PM T [facility] Lymphocytes Absolute 1.9 0.9 - 2.9 K/uL 11/18/2024 1:48 PM [facility] Monocytes Absolute 0.9 0.3 - 0.9 K/uL 11/18/2024 1:48 PM [facility] Eosinophils Absolute 0.0(L) 0.1 - 0.5 K/uL 11/18/2024 1:48 PM [facility] Basophils Absolute 0.1 0.0 - 0.1 K/uL 11/18/2024 1:48 PM [facility] Slide Review PERFORMED 11/18/2024 1:48 PM [facility] RBC Morphology NORMAL 11/18/2024 1:48 PM [facility] PLT Morphology ADEQUATE 11/18/2024 1:48 PM [facility] Total Counted 100 11/18/2024 1:48 PM [facility] 11/17/2024 3:15 PM CDT 11/18/2024 12:27 PM CDT us Levi North MD LAB BLOOD ORDERABLES Final Result [facility] [address] [place] [address] * CBC Branch Off w/Diff (11/17/2024 2:58 [...] BLOOD ORDERABLES Final Result Performing Organization Address City/[facility] de Phone Number [facility] [place] [address] [place] [address] * Vitamin D, Total ([facility] preferred) (11/17/2024 2:58 PM CDT) Vitamin D, Total 46.5 ng/mL 11/19/19 1:29 PM CDT [facility] Comment: Deficient <20 Insufficient 20-<30 Sufficient 30-100 Vitamin D2/D3 fractionation is recommended at the discretion of the clinician if Total Vitamin D is within deficient or insufficient range. Blood (Blood, Venous) 11/17/2024 2:58 PM CDT 11/18/2024 12:27 PM CDT Levi North MD LAB BLOOD ORDERABLES Final Result Performing Organization Address [facility] de Phone Number [facility] [address] [place] [address] * TSH (11/17/2024 2:58 PM CDT) TSH, Sensitive 2.12 0.46 - 4.68 mIU/L 11/18/2024 2:07 PM CDT [facility] Comment: The results from this or [...] BLOOD ORDERABLES Final Result Performing Organization Address [facility] de Phone Number [facility] [address] [place] [address] * (ABNORMAL) Hemoglobin A1c (11/17/2024 2:58 PM CDT) Pathologist [facility] Hemoglobin A1C 7.8(H) 4.0 - 5.6 % A1C 11/18/2024 1:10 PM CDT [facility] Comment: Reference Range 4.0-5.6% is for [...] BLOOD ORDERABLES Final Result Performing Organization Address [facility] de Phone Number [facility] [address] [place] [address] * Covid-19, Rogers ID Now, PCR (11/17/2024 2:41 PM CDT) Pathologist [facility] Covid Source Nasal 11/17/2024 3:34 PM CDT [facility] Covid-19, ID Now PCR NEGATIVE Negative 11/17/2024 3:34 PM CDT [facility] Comment: Negative results should be treated as [...] O RDERABLES Final Result Performing Organization Address [facility]/ZIP Co de Phone Number [facility] [address] [place] [address] * Flu, Rogers ID Now, PCR (11/17/2024 2:41 PM CDT) Flu Source Nasal 11/17/2024 3:34 PM CDT [facility] Influenza A, PCR NEGATIVE Negative 11/17/2024 3:34 PM CDT [facility] Influenza B, PCR NEGATIVE Negative 11/17/2024 3:34 PM CDT [facility] Flu Interp see below 11/17/2024 3:34 PM CDT [facility] Comment: Flu A Viral RNA Not Detected; Flu B Viral RNA Not Detected. Testing was performed using the Rogers ID NOW A & B 2 Assay. Swab 11/17/2024 2:41 PM CDT 11/17/2024 3:33 PM CDT Levi North MD LAB MOLECULAR DIAGNOSTICS O RDERABLES Final Result [facility] [address] [place] [address] documented in this encounter Visit Diagnoses Diagnosis [...] kidney disease (HCC) Coronary artery disease involving [place] coronary artery of [place] heart without angina pectoris Moderate mixed hyperlipidemia [...] documented as of this encounter Care Teams Bread Racker Relationship Specialty Start Date End Date Levi North MD [address] [place] [address] PCP - General Family Medicine 10/08/24 Dr Esposito Consulting Physician 01/26/20 [facility] Pain Clinic [facility] Consulting Physician Neurology 01/26/20 documented as of this encounter
--- OUTSIDE RECORDS SUMMARY | 2024-11-23 13:57 | XMS_ITS | Continuity of Care Document ---
Author Name [facility] Organization [facility] Care Team Providers Care Phlebotomy Support Tech Name Role Phone [facility] Unavailable Unavailable Allergies, Adverse Reactions, Alerts Combined list of allergies from Department of Defense and Veterans Affairs facilities. It does not include entries that were removed or entered in error. Substance Category Reaction Severity Reaction type Status Date Reported Comments Source PENICILLIN Propensity to adverse reactions to drug (finding) active 12/26/1995 [facility] PERCOCET Propensity to adverse reactions to drug (finding) active 05/01/1996 [facility] SULFA DRUGS Propensity to adverse reactions to drug (finding) active 04/20/1999 [facility] Immunizations Combined list of available immunizations from the Department of Defense and Veterans Affairs facilities. Immunization Series Date Given Administered By Site Reaction Lot Number CVX Code Drug Food And Beverage Controller Status Comments Source INFLUENZA (HISTORICAL) 1997 YVONNE KHAN 87 complet ed [facility]
--- OUTSIDE RECORDS SUMMARY | 2024-11-23 13:58 | XMS_ITS | Encounter Summary ---
Author Organization [facility] er Address [address] [place] [address] Care Team Providers Care Motorboat Mechanic Helper Name Role Phone Nicolás Tyler MD Primary Care Provider [phone] Encounter Details Date Type Department Care Team (Late st Contact Info) Description 11/17/2024 3:30 PM CDT Lab [place] [address] [place] [address] Social History Tobacco Use Types Packs/Day Years [...] from your doctor or pharmacy? Never 11/17/2024 [facility] Utilities Answer Date Recorded In the past 12 months has [facility] [employer], gas, oil, or water [employer] threatened to shut off services in your [...] often do you attend chur ch or yazidi services? More than 4 times per year 11/17/2024 Do you belong to any clubs o r organizations such as uatsdin groups, unions, fraternal or athletic groups, or [...] Date Recorded PHQ-9 Total Score 6 11/17/2024 [facility] Questionnaire Answer Date [...] any time in the past 12 m [facility] [place], were you homeless or living in a [...] Description 01/26/2025 1:00 PM CDT Office Visit [place] [address] [facility] [address] [place] [address] 02/17/2025 2:20 PM CDT Office Visit [place] [id number] [facility] [address] [place] [address] Nicolás Tyler MD [address] [place] [address] 02/18/2025 1:20 PM CDT Office Visit [place] [address] [facility] [address] [place] [address] Jose Lincoln MD [address] [place] [id number] documented as of this encounter Visit Diagnoses Not on filedocumented in this encounter Additional Health Concerns Infection Onset Date Last Indicated Resolved Time COVID-19 Rule Out 11/17/2024 11/17/2024 11/17/2024 3:34 PM CDT documented as of this encounter Care Teams Motorboat Mechanic Helper Relationship Specialty Start Date End Date Nicolás Tyler MD [address] [facility] [address] [place] [address] PCP - General Family Medicine 10/08/24 Dr Esposito Consulting Physician 01/26/20 [facility] Pain Clinic [facility] Consulting Physician Neurology 01/26/20 documented as of this encounter
--- OUTSIDE RECORDS SUMMARY | 2024-11-23 13:58 | XMS_ITS | Clinical Summary ---
Author Organization [facility] Address [facility] [place] [address] Care Team Providers Care Pantograph Operator Name Role Phone Moreno Dill MD Primary [...] chewable 81 mg chewable tabletIndication s:CAD in [place] artery Chew 1 Tablet (81 mg) by [...] hours. 44 mL 10/11/19 22 10:32 AM LUMBER STRAIGHTENER Active Additional Information Patient taking differently:2 [place] NasalBID PRN, Informant: Patient's Recall, Reported on [...] type, unspecified whether angina present, unspecified whether [place] or transplanted heart Take 1 Tablet (75 [...] (NITROSTAT) 0.4 mg sublingual tabletIndication s:CAD in [place] artery Place 1 Tablet (0.4 mg) under [...] extended release tablet 24 hourIndications: CAD in [place] artery TAKE TWO TABLETS (120MG) BY MOUTH [...] 50 mg sustained-releas e tabletIndication s:CAD in [place] artery,AP (angina pectoris),Arteri osclerotic heart disease TAKE [...] 50 mg sustained-releas e tabletIndication s:CAD in [place] artery,AP (angina pectoris),Arteri osclerotic heart disease Take [...] 10/03/04 - S/P CABG in 2004 at [facility] (VG to RCA and VG to mLAD) - 02/17/20: complex high risk PCI; [place] LAD reconstruction with CHAPIN X 2; SVG [...] Type Department Care Team Description 11/13/2024 Refill [facility] [address] [place] [address] Moreno Dill MD Refill Request (Rosuvastatin, Potassium Chloride, Metoprolol Succinate) 10/07/2024 Refill [facility] [address] [place] [address] Moreno Dill MD Refill Request (Albuterol Hfa) 09/29/2024 10:30 AM LUMBER STRAIGHTENER Office Visit [address] [address] Moreno Dill MD Cough (Productive cough, started about 6 days ago, fever, chills, sweats, body aches) 09/29/[address] [address] Moreno Dill MD Medication Management 09/29/2024 Travel 09/28/2024 Telephone [facility] [address] [place] [address] Moreno Dill MD Same Day Appt (Chest infection) 09/16/2024 Refill [facility] [address] [place] [address] Moreno Dill MD Refill Request (Trelegy Ellipta) 08/30/[address] [address] Moreno Dill MD Refill Request (Isosorbide Mononitrate) from Last 3 Months Immunizations Immunization Administration Dates Next Due COVID-19 vaccine ([facility] NT[employer] 30mcg/0.3mL) 12YO+ BIVALENT PF, MDV 02/22/2023,07/23/2022 COVID-19 vaccine (The Original [employer] NTech 30mcg/0.3mL) 12YO+ MARY-SUCROSE PF, MDV 03/06/2022,10/16/2021 COVID-19 vaccine ([facility] [facility] 30mcg/0.3mL) PF, MDV 01/11/2021,12/06/2020 Hepatitis B [...] on file Legal Sex Female 6:08 AM LUMBER STRAIGHTENER Gender Identity Not on file Sexual Orientation Not on file Obstetrics History Last Filed Vital Signs Vital Sign Reading Time Taken Comments Blood Pressure 144/81 09/29/2024 10:33 AM LUMBER STRAIGHTENER Pulse 79 09/29/2024 10:33 AM LUMBER STRAIGHTENER Temperature 36.9 C (98.4 F) 09/29/2024 10:33 AM LUMBER STRAIGHTENER Respiratory Rate 18 02/19/2023 5:45 PM CDT Oxygen Saturation 94% 09/29/2024 10:33 AM LUMBER STRAIGHTENER Inhaled Oxygen Concentration - - Weight 81.3 kg (179 lb 3.2 oz) 09/29/2024 10:33 AM LUMBER STRAIGHTENER Height 162.6 cm (5' 4) 11/08/2023 3:34 [...] 10/08/2023, 12/24/2012 Medical Devices Implanted Type Area Ticket Writer Device Identifier Shelf Expiration Date Model / Serial / Lot [id number] 15cc Mtf Chips Canclls Jar [[id number]] Implanted:Qty: 1 on 09/19/2016 by Dat Hazel MD at [facility] Explanted:at [facility] (Quantity not on file) N/A: Spine Musculoskeletal Transplant 01/30/2017 [id number] / [id number] / [id number] 1cc [place] Plus Paste Dbm Implanted:Qty: 1 on 09/19/2016 by Dat Hazel MD at [facility] Explanted:at [facility] (Quantity not on file) N/A: Spine Medtronic Spine/Ortho 04/05/2018 [id number] / [id number] / Screw Cerv Ant 4x14mm Atlantistranslational Fa Slf Drill - [id number] Implanted:Qty: 4 on 09/19/2016 by Dat Hazel MD at [facility] N/A: Spine Medtronic Spine/Ortho [id number] / / Screw Occipital 4.5x6mm Vertexselect - [id number] Implanted:Qty: 2 on 09/19/2016 by Dat Hazel MD at [facility] N/A: Spine Medtronic Spine/Ortho [id number] / / Plate Cerv 2lvl 40mm [place] [employer] Elite Ant - [id number] Implanted:Qty: 1 on 09/19/2016 by Dat Hazel MD at [facility] N/A: Spine Medtronic Spine/Ortho [id number]# / / Spacer [id number] Implanted:Qty: 1 on 09/19/2016 by Dat Hazel MD at [facility] N/A: Spine [id number] / / 70CV Description:SPACER [id number] Spacer [id number] Implanted:Qty: 1 on 09/19/2016 by Dat Hazel MD at [facility] N/A: Spine [id number] / / [id number] Description:SPACER [id number] Procedures Procedure Name Priority Date/Time Associated Diagnosis Comments COVID/FLU/RSV PANEL Routine 09/29/2024 10:51 AM LUMBER STRAIGHTENER Cough, unspecified type LIPID PANEL Routine 01/22/2024 1:59 PM CDT Encounter for long-term (current) use of other medications LC HIV-1/O/2, 4TH GENERATION Routine 10/16/2022 1:42 PM LUMBER STRAIGHTENER Screening for HIV (human immunodeficiency virus) XR MAMMO ROMY BILAT DIAG Routine 08/22/2022 2:50 PM LUMBER STRAIGHTENER Mass of upper outer quadrant of right breast ANTI HCV Routine 10/06/2020 12:55 PM LUMBER STRAIGHTENER Need for hepatitis C screening test from Last 3 Months or Most Recently Relevant to Health Maintenance Results * COVID/FLU/RSV PANEL (09/29/2024 10:51 AM LUMBER STRAIGHTENER) COVID 19 [facility] Negative Negative 09/29/2024 4:09 PM LUMBER STRAIGHTENER [facility] Comment:All PCR tests are suarez bject to false negative result due to variability in viral load and collection technique. A negative result does not rule out a SARS-CoV-2 infection. Clinical correlation required. INFLUENZA A PCR Negative 5 4:09 PM LUMBER STRAIGHTENER [facility] INFLUENZA B PCR Negative 5 4:09 PM LUMBER STRAIGHTENER [facility] Respiratory Syncytial Virus Negative 09/29/2024 4:09 PM LUMBER STRAIGHTENER [facility] Swab NASOPHARYNGEAL SWAB / Unknown Non-Blood / Unknown 09/29/2024 10:51 AM LUMBER STRAIGHTENER 09/29/2024 10:52 AM LUMBER STRAIGHTENER Moreno Dill MD MICROBIOLOGY Final Result [facility] [address] [place] [address], * LIPID PANEL (01/22/2024 1:59 PM CDT) CHOLESTEROL,TOTAL 171 100 - 199 mg/dL 01/22/2024 10:45 PM CDT [facility] Comment: Cholesterol, Total Reference Ranges Desirable <200 mg/dL Borderline 200-239 mg/dL High >=240 mg/dL TRIGLYCERIDES 149 <150 mg/dL 01/22/2024 10:45 PM CDT [facility] HDL CHOLESTEROL 63 >40 mg/dL 10:45 PM CDT [facility] NON-HDL CHOLESTEROL 108 <145 mg/dl 01/22/2024 10:45 PM CDT [facility] CHOL/HDL RATIO 2.71 <4.50 01/22/2024 10:45 PM CDT [facility] LDL CHOLESTEROL 78 <=130 mg/dL 01/22/2024 10:45 PM CDT [facility] VLDL CHOLESTEROL 30 <=30 mg/dL 01/22/2024 10:45 PM CDT [facility] PROVIDER ORDERED STATUS FASTING 01/22/2024 10:45 PM CDT [facility] Blood BLOOD SPECIMEN / Unknown Venipuncture / Unknown 01/22/2024 1:59 PM CDT 01/22/2024 2:00 PM CDT us Moreno Dill MD CHEMISTRY Final Result Performing Organization Address City/[facility]/ZIP Co de Phone Number [facility] [address] [place] [address], * HIV-1/O/2, 4TH GENERATION (10/16/2022 1:42 PM LUMBER STRAIGHTENER) [facility] HIV Scr 4th Gen Non Reactive Non Reactive 10/18/2022 1:09 PM LUMBER STRAIGHTENER [facility] Comment: HIV Negative HIV-1/HIV-2 antibodies and HIV-1 p24 antigen were NOT detected. There is no laboratory evidence of HIV infection. Blood BLOOD SPECIMEN / Unknown Butterfly / Unknown 10/16/2022 1:42 PM LUMBER STRAIGHTENER 10/16/2022 1:49 PM LUMBER STRAIGHTENER Narrative [facility] - 10/18/2022 1:09 PM LUMBER STRAIGHTENER Performed at: [address] [place] [id number] Surface Boss: Scotty Jarrell MD, Phone: [phone] us Moreno Dill MD LABORATORY Final Result Performing Organization Address City/[facility]/ZIP Co de Phone Number [facility] ([facility] [address] [place] [address], [place] * XR MAMMO ROMY BILAT DIAG (08/22/2022 2:50 PM LUMBER STRAIGHTENER) Anatomical Region Laterality Modality BREASTS, Breast Left, Breast Right Bilateral Mammography Impressions 08/23/2022 12:21 PM LUMBER STRAIGHTENER Subcutaneous bruise RIGHT breast 11 o'clock 8 [...] your referring provider. Narrative 08/23/2022 12:21 PM LUMBER STRAIGHTENER As a result of the Cures Act, [...] Result * ANTI HCV (10/06/2020 12:55 PM LUMBER STRAIGHTENER) HEPATITIS C ANTIBODY Non-React francis Non-React francis 10/06/2020 10:54 PM LUMBER STRAIGHTENER [facility] Comment:Antibodies to HCV no t detected; does not exclude the possibility of exposure to HCV. Blood BLOOD SPECIMEN / Unknown Butterfly / Unknown 10/06/2020 12:55 PM LUMBER STRAIGHTENER 10/06/2020 1:00 PM LUMBER STRAIGHTENER us Moreno Dill MD SEND OUTS Final Result [facility] [address] [place] [address], [place] from Last 3 Months or Most Recently Relevant to Health Maintenance Insurance [employer] PPO MR Advance Directives * [...] Comments Code Status Discussion: Discussed Care Teams Pantograph Operator Relationship Specialty Start Date End Date Moreno Dill MD [address] [place] [address] PCP - General Family Practice 04/20/19
--- OUTSIDE RECORDS SUMMARY | 2024-11-23 13:58 | XMS_ITS | Continuity of Care Document ---
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, Randy Unavailable Unavailable Allergies, Adverse Reactions, Alerts [...] morning and evening Not Available - Active venlafaxine ER 75 mg tablet,extended release 24 hr take 1 tablet by oral route every day in the morning at the same time each day with food 75 MG - Active isosorbide mononitrate ER 120 mg tablet,extended release 24 hr take 1 tablet by oral route every day in the morning 120 MG - Active ipratropium 0.5 mg-albuterol 3 mg (2.5 mg base)/3 mL nebulization soln inhale 3 milliliter by nebulization route 4 times every day 3.00 milliliter - Active bisacodyl 10 mg rectal suppository insert 1 suppository by rectal route every day as needed for constipation 10 MG - Active Tirosint 50 mcg capsule take 1 capsule by oral route every day 50 MCG - Active esomeprazole magnesium 40 mg capsule,delayed release take 1 capsule by oral route every day 40 MG - Active Advair Diskus 250 mcg-50 mcg/dose powder for inhalation inhale 1 puff by inhalation route 2 times every day in the morning and evening approximately 12 hours apart 1.00 puff - Active benzonatate 100 mg capsule take 1 capsule by oral route 3 times every day as needed for cough 100 MG - Active ezetimibe 10 mg tablet take [...] route every day 50 MG - Active Narcan 4 mg/actuation nasal spray spray 0.1 milliliter by intranasal route in 1 nostril may repeat dose every 2-3 minutes as needed alternating nostrils with each dose 4 MG - Active ondansetron HCl 4 mg tablet take 1 tablet by oral route 2 times every day 4 MG - Active rosuvastatin 5 mg tablet take 1 tablet by oral route every day 5 MG - Active simvastatin 10 mg tablet take 1 tablet by oral route every day in the evening 10 MG - Active amlodipine 5 mg tablet take 1 tablet by oral route every day 5 MG - Active mirtazapine 15 mg tablet take 1 tablet by oral route every day before bedtime 15 MG - Active Advair Diskus 250 mcg-50 mcg/dose powder for inhalation inhale 1 puff by inhalation route 2 times every day in the morning and evening approximately 12 hours apart 1.00 puff - Active ascorbic acid (vitamin C) 500 mg capsule - Active aspirin 81 mg chewable tablet chew 1 tablet by oral route every day 81 MG - Active Citracal with Vitamin D Maximum 315 mg-250 unit tablet - Active cyclobenzaprine 10 mg tablet take 1 tablet by oral route every day 10 MG - Active DOK Plus 8.6 mg-50 mg tablet take 2 tablet by oral route 2 times every day 2 tablet - Active Fish Oil 1,000 mg (120 mg-180 mg) capsule - Active nitroglycerin 0.[address] 1 tablet by sublingual route every 5 minutes as needed for chest pain. Do not exceed 3 doses in 15 minutes. 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 Procedures Procedure Date [...] Est Pt Eval Telehealth SHARAD Gonsalves, [address], [place], [place], [id number], [place] tel:[phone] [facility] neck pain (chief complaint) lower back pain (chief complaint) Chief Complaint 3 (chief complaint) Complex regional pain syndrome 2 of rt upper limbBody mass index (BMI) 27.0-27.9, adultRadiculopathy , cervical regionChronic pain syndrome 4 Person Randy. [address], [place], [place], [address], [place]. tel:[phone] Referring Provider: Kristen Godoy, [address] [place], [address]. tel:[phone] Est Pt Eval [facility], [address], [place], [address], [place] tel:[phone] [facility] lower back pain (chief complaint) Complex regional pain syndrome 2 of rt upper limbBody mass index (BMI) 27.0-27.9, adultElevated blood-pressure reading, w/o diagnosis of htn 4 Person Randy. [address], [place] [address], [place], [address], [place]. tel:[phone] Referring Provider: Kristen Godoy, [address] [place], [address]. tel:[phone] [facility], [address], [id number], [place] tel:[phone] [facility] No Information 4 Person Randy. [address], [place] [address], [place], [address], [place]. tel:[phone] Referring Provider: Kristen Godoy, [address] [place], [address]. tel:[phone] Est Pt Eval Telehealth [facility], [address], [place], [address], [place] tel:[phone] [facility] neck pain (chief complaint) lower back pain (chief complaint) shoulder pain (chief complaint) Complex regional pain syndrome 2 of rt upper limbBody mass index (BMI) 28.0-28.9, adult 4 Naylor Enriqueta. [address] [place], [place], [address], [place]. tel:[phone] Referring Provider: Kristen Godoy, [address] [place], [address]. tel:[phone] Est Pt Eval Telehealth Major, [facility], [address], [place], [address], [place] tel:[phone] [facility] neck pain (chief complaint) Body mass index (BMI) 28.0-28.9, adultComplex regional pain syndrome 2 of rt upper limbRadiculopathy, cervical region 4 Naylor Enriqueta. [address], [address], [place]. tel:[phone] Referring Provider: Kristen Godoy, [address] [place], [address]. tel:[phone] Est Pt Eval Telehealth [facility], [address], [place], [address], [place] tel:[phone] [facility] neck pain (chief complaint) back pain (chief complaint) Body mass index (BMI) 28.0-28.9, adultComplex regional pain syndrome 2 of rt upper limb Oct- 4 Naylor Enriqueta. [address] [place], [place], [address], [place]. tel:[phone] Referring Provider: Kristen Godoy, [address] [place], [address]. tel:[phone] Est Pt Eval Telehealth [facility], [address], [place], [place], [address], [place] tel:[phone] [facility] back pain (chief complaint) neck pain (chief complaint) Complex regional pain syndrome 2 of rt upper limbPain in right shoulderBody mass index (BMI) 28.0-28.9, adult 4 Nabila Kelly. [address], [place] [address], [place], [address], [place]. tel:[phone] Referring Provider: Kristen Godoy, [address] [place], [address]. tel:[phone] [facility], [address], [place], [place], [address], [place] tel:[phone] [facility] Neck Pain (chief complaint) back pain (chief complaint) joint pain (chief complaint) Complex regional pain syndrome 2 of rt upper limbPain in right shoulderPain in left hipBody mass index (BMI) 28.0-28.9, adult 4 Jose Luis Carrillo. [address], [address], [place], [address], [place]. tel:[phone] Referring Provider: Kristen Godoy, [address] [place], [address]. tel:[phone] Est Pt Eval Telehealth [facility], [address], [place], [place], [address], [place] tel:[phone] [facility] back pain (chief complaint) Body mass index (BMI) 28.0-28.9, adultComplex regional pain syndrome 2 of rt upper limbPain in right shoulderPain in left hip 3 Melllorimorichar Rezan. [address], [address], [place], [address], [place]. tel:[phone] Referring Provider: Kristen Godoy, [address] [facility] [place], [address]. tel:[phone] Est Pt Eval [facility], [address], [place], [place], [address], [place] tel:[phone] [facility] back pain (chief complaint) Complex regional pain syndrome 2 of rt upper limbPain in right shoulderPain in left hipBody mass index (BMI) 28.0-28.9, adult 3 Mellesmoen Lorena. [address], [address], [place], [address], [place]. tel:[phone] Referring Provider: Kristen Godoy, [address] [facility] [place], [address]. tel:[phone] [facility], [address], [place], [place], [address], [place] tel:[phone] [facility] No Information 3 Mellesmoen Lorena. [address], [place], [address], [place]. tel:[phone] Referring Provider: Kristen Godoy, [address] [facility] [place], [address]. tel:[phone] Est Pt Eval Telehealth [facility], [address], [place], [place], [address], [place] tel:[phone] [facility] back pain (chief complaint) Body mass index (BMI) 29.0-29.9, adultComplex regional pain syndrome 2 of rt upper limbPain in right shoulder 3 Mellesmoen Lorena. [address], [place], [address], [place]. tel:[phone] Referring Provider: Kristen Godoy, [address] [facility] [place], [address]. tel:[phone] Psychotherap y, 45 minutes with patient [facility], [address], [place], [place], [address], [place] tel:[phone] [facility] Pain disorder with related psychological factorsMajor depressive disorder, recurrent, moderate Apr- 3 Gottwalt Soheila. [address], [place], [address], [place]. tel:[phone] Referring Provider: Kristen Godoy, [address] [place], [place], [facility]. tel:[phone] Est Pt Eval [facility], [address], [place], [place], [address], [place] tel:[phone] [facility] back pain (chief complaint) Complex regional pain syndrome 2 of rt upper limbBody mass index (BMI) 29.0-29.9, adult Sep- 3 Jose Luis Carrillo. [address], [place] [address], [place], [address], [place]. tel:[phone] Referring Provider: Kristen Godoy, [address] [facility] [place], [address]. tel:[phone] Psychotherap y, 30 minutes with patient [facility]REG [facility]ves[facility], [address], [place], [place], [address], [place] tel:[phone] [facility] Pain disorder with related psychological factorsMajor depressive disorder, recurrent, moderateOpioid use, unspecified, uncomplicated Mar- 3 Gottwalt Soheila. [address], [place], [place], [address], [place]. tel:[phone] Referring Provider: Kristen Godoy, [address] [facility] [place], [address]. tel:[phone] Est Pt Eval [facility], [address], [place], [place], [address], [place] tel:[phone] [facility] right neck pain (chief complaint) Body mass index (BMI) 29.0-29.9, adultComplex regional pain syndrome 2 of rt upper limb 3 Mellesmoen Lorena. [address], [place], [address], [place]. tel:[phone] Referring Provider: Kristen Godoy, [address] [place], [address]. tel:[phone] [facility], [address], [place], [place], [address], [place] tel:[phone] [facility] No Information 3 Melllorimorichar Rezan. [address], [place], [address], [place]. tel:[phone] Referring Provider: Kristen Godoy, [address] [facility] [place], [address]. tel:[phone] Psychotherap y, 30 minutes with patient [facility], [address], [place], [place], [address], [place] tel:[phone] [facility] Pain disorder with related psychological factorsMajor depressive disorder, recurrent, moderateOpioid use, unspecified, uncomplicated 3 Gottwalt Soheila. [address], [place], [place], [address], [place]. tel:[phone] Referring Provider: Kristen Godoy, [address] [place], [address]. tel:[phone] Est Pt Eval [facility], [address], [place], [place], [address], [place] tel:[phone] [facility] right neck pain (chief complaint) Complex regional pain syndrome 2 of rt upper limbBody mass index (BMI) 29.0-29.9, adult 3 Jose Luis Rezan. [address], [place], [address], [place]. tel:[phone] Referring Provider: Kristen Godoy, [address] [place], [address]. tel:[phone] Psychotherap y, 45 minutes with patient [facility], [address], [place], [place], [address], [place] tel:[phone] [facility] Pain disorder with related psychological factorsMajor depressive disorder, recurrent, moderateOpioid use, unspecified, uncomplicated 3 Kian Parnell. [address] [place] [address], [place], [address], [place]. tel:[phone] Referring Provider: Kristen Godoy, [address] [place], [address]. tel:[phone] Est Pt Eval 25 Min [facility], [facility], [address], [place], [place], [address], [place] tel:[phone] [facility] right neck pain (chief complaint) Complex regional pain syndrome 2 of rt upper limbBody mass index (BMI) 31.0-31.9, adult 3 Melllorimoen Lorena. [address], [place], [address], [place]. tel:[phone] Referring Provider: Kristen Godoy, [address] [place], [address]. tel:[phone] Psychotherap y, 30 minutes with patient GREG Gonsalves, [address], [place], [place], [address], [place] tel:[phone] [facility] Pain disorder with related psychological factorsMajor depressive disorder, recurrent, moderateOpioid use, unspecified, uncomplicated 3 Aris Allen. [address] , [facility] [address], [place], [address], [place]. tel:[phone] Referring Provider: Kristen Godoy, [address] [place], [address]. tel:[phone] Est Pt Eval 25 Min [facility], [address], [place], [place], [address], [place] tel:[phone] [facility] back pain (chief complaint) Complex regional pain syndrome 2 of rt upper limbBody mass index (BMI) 31.0-31.9, adult 3 Jose Luis Carrillo. [address], [place], [address], [place]. tel:[phone] Referring Provider: Kristen Godoy, [address] [place], [address]. tel:[phone] [facility], [address], [place], [place], [address], [place] tel:[phone] [facility] No Information 3 Jose Luis Carrillo. [address], [place], [address], [place]. tel:[phone] Referring Provider: Kristen Godoy, [address] [facility] [place], [address]. tel:[phone] Psychotherap y, 30 minutes with patient [facility], [address], [place], [place], [address], [place] tel:[phone] [facility] Pain disorder with related psychological factorsMajor depressive disorder, recurrent, moderateOpioid use, unspecified, uncomplicated 3 Aris Allen. [address] [place] [address], [place], [address], [place]. tel:[phone] Referring Provider: Kristen Godoy, [address] [facility] [place], [address]. tel:[phone] Est Pt Eval 25 Min [facility], [address], [place], [place], [address], [place] tel:[phone] [facility] back pain (chief complaint) Complex regional pain syndrome 2 of rt upper limb 3 Jose Luis Carrillo. [address], [place], [address], [place]. tel:[phone] Referring Provider: Kristen Godoy, [address] [facility] [place], [address]. tel:[phone] Psychotherap y, 30 minutes with patient [facility], [address], [place], [place], [address], [place] tel:[phone] [facility] Pain disorder with related psychological factorsMajor depressive disorder, recurrent, moderateOpioid use, unspecified, uncomplicated Oct- 3 Aris Allen. [address], [place], [place], [address], [place]. tel:[phone] Referring Provider: Kristen Godoy, [address] [facility] [place], [address]. tel:[phone] Est Pt Eval 25 Min [facility], [facility], [address], [place], [place], [address], [place] tel:[phone] [facility] back pain (chief complaint) Complex regional pain syndrome 2 of rt upper limbBody mass index (BMI) 31.0-31.9, adult Mar- 3 Jose Luis Carrillo. [address], [place], [address], [place]. tel:[phone] Referring Provider: Kristen Godoy, [address] [place], [address]. tel:[phone] [facility], [address], [place], [place], [address], [place] tel:[phone] [facility] No Information 3 Alexis Mayer. [address] [place] [address], [place], [address], [place]. tel:[phone] Referring Provider: Moreno Bruce, [address] [address], [address]. tel:[phone] [facility], [address], [place], [address], [place] tel:[phone] [facility] right neck pain (chief complaint) Radiculopathy, cervical regionPostlaminect kvng syndrome, not elsewhere classifiedRadiculo tripp, cervical regionPostlaminect kvng syndrome, not elsewhere classified 3 [facility] Surgical [facility]. [address], [place], [place], [address], [place]. tel:[phone] Referring Provider: Moreno Bruce, [address], [place], [address]. tel:[phone] [facility], [address], [place], [place], [address], [place] tel:[phone] [facility] No Information 3 Isha Masterson. [address], [place], [address], [place]. tel:[phone] Referring Provider: Kristen Godoy, [address] [place], [address]. tel:[phone] [facility], [address], [place], [place], [address], [place] tel:[phone] [facility] Pain disorder with related psychological factorsMajor depressive disorder, recurrent, moderateOpioid use, unspecified, uncomplicated 3 Aris Allen. [address], [place], [address], [place]. tel:[phone] Referring Provider: Kristen Godoy, [address] [place], [address]. tel:[phone] Est Pt Eval 25 Min [facility], [address], [place], [place], [address], [place] tel:[phone] [facility] right neck pain (chief complaint) back pain (chief complaint) left foot pain (chief complaint) Complex regional pain syndrome 2 of rt upper limbBody mass index (BMI) 29.0-29.9, adult 3 Jose Luis Carrillo. [address], [place], [address], [place]. tel:[phone] Referring Provider: Kristen Godoy, [address] [facility] [place], [address]. tel:[phone] [facility], [address], [id number], [place] tel:[phone] [facility] Surgical [facility] No Information 3 Alexis Mayer. [address], [place], [address], [place]. tel:[phone] Referring Provider: Kristen Godoy, [address] [place], [place], [facility]. tel:[phone] GREG Gonsal[facility], [address], [address], [place] tel:[phone] [facility] No Information 3 Jose Luis Carrillo. [address] , [facility] [address], [place], [address], [place]. tel:[phone] Referring Provider: Kristen Godoy, [address] [place], [place], [facility]. tel:[phone] Psychotherap y, 30 minutes with patient Telephone Only [facility] Gonsalves, [address], [id number], [place] tel:[phone] [facility] Pain disorder with related psychological factorsMajor depressive disorder, recurrent, moderateOpioid use, unspecified, uncomplicated Aug- 3 Aris Allen. [address], [place], [address], [place]. tel:[phone] Referring Provider: Kristen Godoy, [address] [place], [address]. tel:[phone] Est Pt Eval 25 Min Telehealth [facility], [address], [place], [place], [address], [place] tel:[phone] [facility] back pain (chief complaint) Complex regional pain syndrome 2 of rt upper limbBody mass index (BMI) 30.0-30.9, adult 3 Melllorimoen Lorena. [address], [place], [address], [place]. tel:[phone] Referring Provider: Kristen Godoy, [address] [place], [address]. tel:[phone] Psychotherap y, 30 minutes with patient GREG Gonsalves, [address], [place], [place], [address], [place] tel:[phone] [facility] Pain disorder with related psychological factorsMajor depressive disorder, recurrent, moderateOpioid use, unspecified, uncomplicated 2 Aris Allen. [address] [facility], [place], [address], [place]. tel:[phone] Referring Provider: Kristen Godoy, [address] [place], [address]. tel:[phone] Est Pt Eval 25 Min GREG Gonsalves, [address] [facility] [address], [place], [place], [address], [place] tel:[phone] [facility] back pain (chief complaint) Complex regional pain syndrome 2 of rt upper limbBody mass index (BMI) 31.0-31.9, adult 2 Kathyamoen Lorena. [address], [place], [address], [place]. tel:[phone] Referring Provider: Kristen Godoy, [address] [place], [address]. tel:[phone] Psychotherap y, 45 minutes with patient GREG Gonsalves, [address], [place], [place], [address], [place] tel:[phone] [facility] Pain disorder with related psychological factorsMajor depressive disorder, recurrent, moderateOpioid use, unspecified, uncomplicatedCausa lgia of right upper limb 2 Aris Allen. [address], [place], [address], [place]. tel:[phone] Referring Provider: Kristen Godoy, [address] [place], [address]. tel:[phone] Est Pt Eval 25 Min GREG Gonsalves, [address], [place], [place], [address], [place] tel:[phone] [facility] back pain (chief complaint) Complex regional pain syndrome 2 of rt upper limbBody mass index (BMI) 33.0-33.9, adult 2 Jose Luis Carrillo. [address], [place], [address], [place]. tel:[phone] Referring Provider: Kristen Godoy, [address] [place], [address]. tel:[phone] [facility], [address], [place], [place], [address], [place] tel:[phone] [facility] No Information 2 Isha Masterson. [address], [address], [place]. tel:[phone] Referring Provider: Kristen Godoy, [address] [facility] [place], [place], [address]. tel:[phone] Major [facility], [address], [place], [place], [address], [place] tel:[phone] Major [facility] No Information 2 Jose Luis Carrillo. [address], [address], [place], [address], [place]. tel:[phone] Referring Provider: Kristen Godoy, [address] [facility] [place], [address]. tel:[phone] Major [facility], [address] [facility] [address], [place], [address], [place] tel:[phone] [facility] Pain disorder with related psychological factorsMajor depressive disorder, recurrent, moderateOpioid use, unspecified, uncomplicated 2 Aris Allen. [address] , [facility] [address], [place], [address], [place]. tel:[phone] Referring Provider: Kristen Godoy, [address] [place], [address]. tel:[phone] Major [facility], [address] [facility] [address], [place], [address], [place] tel:[phone] [facility] No Information 2 Isha Masterson. [address], [place], [address], [place]. tel:[phone] Referring Provider: Kristen Godoy, [address] [place], [address]. tel:[phone] Est Pt Eval 25 Min Major [facility], [address] [facility] [address], [place], [address], [place] tel:[phone] [facility] back pain (chief complaint) Body mass index (BMI) 31.0-31.9, adultComplex regional pain syndrome 2 of rt upper limbCervicalgia 2 Jose Luis Rezan. [address], [address], [place], [address], [place]. tel:[phone] Referring Provider: Kristen Godoy, [address] [facility] [place], [address]. tel:[phone] Psychotherap y, 30 minutes with patient SHARAD Gonsalves, [address], [place], [place], [address], [place] tel:[phone] [facility] Pain disorder with related psychological factorsMajor depressive disorder, recurrent, moderateOpioid use, unspecified, uncomplicated 2 Aris Allen. [address], [address], [place], [address], [place]. tel:[phone] Referring Provider: Kristen Godoy, [address] [facility] [place], [address]. tel:[phone] Psychotherap y, 30 minutes with patient Telephone Only GREG [facility]vesC, [address], [place], [place], [address], [place] tel:[phone] [facility] Pain disorder with related psychological factorsMajor depressive disorder, recurrent, moderateOpioid use, unspecified, uncomplicated Sep-2 2 Kian Benavidesta. [address], [address], [place], [place], [address], [place]. tel:[phone] Referring Provider: Kristen Godoy, [address] [facility] [place], [address]. tel:[phone] GREG [facility]ves[facility], [address], [place], [place], [address], [place] tel:[phone] [facility] No Information Sep-2 2 Pavithra Huertas. [address] [facility] [address], [place], [address], [place]. tel:[phone] Referring Provider: Kristen Godoy, [address] [place], [address]. tel:[phone] Est Pt Eval 25 Min [facility], [address] [facility] [address], [place], [place], [address], [place] tel:[phone] [facility] back pain (chief complaint) Body mass index (BMI) 31.0-31.9, adultComplex regional pain syndrome 2 of rt upper limbPain in unspecified shoulder Sep- 2 Radha Cobian. [address] [facility] [address], [address], [place]. tel:[phone] Referring Provider: Kristen Godoy, [address] [place], [address]. tel:[phone] Psychotherap y, 45 minutes with patient GREG Gonsalves, [address] [facility] [address], [place], [place], [address], [place] tel:[phone] Monica [facility] Pain disorder with related psychological factorsMajor depressive disorder, recurrent, moderateOpioid use, unspecified, uncomplicated 2 Gottwalt Soheila. [address] , [facility] [address], [place], [address], [place]. tel:[phone] Referring Provider: Kristen Godoy, [address] [place], [address]. tel:[phone] Est Pt Eval 25 Min [facility], [address] [facility] [address], [place], [place], [address], [place] tel:[phone] [facility] back pain (chief complaint) Complex regional pain syndrome 2 of rt upper limbOpioid use, unspecified, uncomplicatedMajor depressive disorder, recurrent, moderatePain disorder with related psychological factorsBody mass index (BMI) 31.0-31.9, adult 2 Jose Luis Carrillo. [address], [address], [place], [address], [place]. tel:[phone] Referring Provider: Kristen Godoy, [address] [facility] [place], [place], [facility]. tel:[phone] GREG Gonsalves, [address], [place], [place], [address], [place] tel:[phone] Major [facility] No Information 2 oJse Luis Willislyn. [address], [address], [place], [address], [place]. tel:[phone] Referring Provider: Kristen Godoy, [address] [place], [address]. tel:[phone] Psychotherap y, 30 minutes with patient SHARAD Gonsalves, [address], [place], [place], [address], [place] tel:[phone] [facility] Pain disorder with related psychological factorsMajor depressive disorder, recurrent, moderateOpioid use, unspecified, uncomplicated Feb- 2 Cameron Kolb. [address], [address], [place], [address], [place]. tel:[phone] Referring Provider: Kristen Godoy, [address] [facility] [place], [place], [facility]. tel:[phone] Est Pt Eval 25 Min GREG G[facility]vesC, [address], [place], [place], [address], [place] tel:[phone] [facility] neck, shoulder, low back, ribs (chief complaint) Body mass index (BMI) 32.0-32.9, adultComplex regional pain syndrome 2 of rt upper limbPain in right shoulder 2 Radha Cobian. [address], [address], [place], [address], [place]. tel:[phone] Referring Provider: Kristen Godoy, [address] [place], [address]. tel:[phone] [facility], [address], [address], [address], [place] tel:[phone] [facility] bilateral shoulder pain (chief complaint) Complex regional pain syndrome 2 of right upper limbNeuralgia and neuritis, unspecifiedCausalg ia of right upper limbNeuralgia and neuritis, unspecified 2 [facility]. [address] [facility] [address], [place], [address], [place]. tel:[phone] Referring Provider: Alie Ng , [address] [facility] [address], [address]. tel:[phone] Est Pt Eval 25 Min Telehealth Major, [facility], [address] [facility] [address], [place], [address], [place] tel:[phone] [facility] back pain (chief complaint) Body mass index (BMI) 32.0-32.9, adultRadiculopathy , cervical regionLow back pain, unspecifiedComplex regional pain syndrome 2 of right upper limb 2 Sumit Tidwell. [address] [facility] [address], [place], [address], [place]. tel:[phone] Referring Provider: Kristen Godoy, [address] [place], [address]. tel:[phone] [facility], [address], [place], [place], [address], [place] tel:[phone] [facility] Surgical [facility] No Information 2 Sumit Knapp. [address], [place], [place], [address], [place]. tel:[phone] Referring Provider: Kristen Godoy, [address] [place], [address]. tel:[phone] [facility] Surgical [place], [address], [place], [address], [place] tel:[phone] [facility] No Information 2 Sumit Knapp. [address], [place], [place], [address], [place]. tel:[phone] Referring Provider: Ra Tellez, [address], [place], [address] . tel:[phone] Est Pt Eval 25 Min Telehealth [facility], [address], [place], [place], [address], [place] tel:[phone] [facility] neck, shoulder, low back (chief complaint) Body mass index (BMI) 32.0-32.9, adultSpondylosis w/o myelopathy or radiculopathy, cervical regionComplex regional pain syndrome 2 of right upper limbPain in right shoulderLow back pain, unspecified 2 Moualee Lauryn. [address], [address], [place], [address], [place]. tel:[phone] Referring Provider: Kristen Godoy, [address] [place], [address]. tel:[phone] Est Pt Eval 25 Min [facility], [address], [place], [place], [address], [place] tel:[phone] [facility] neck, shoulders, low back (chief complaint) Spondylosis w/o myelopathy or radiculopathy, cervical regionComplex regional pain syndrome 2 of right upper limbPain in right shoulderLow back pain, unspecifiedBody mass index (BMI) 32.0-32.9, adult 2 Moualee Lauryn. [address], [address], [place], [address], [place]. tel:[phone] Referring Provider: Kristen Godoy, [address] [facility], [place], [address]. tel:[phone] SHARAD Gonsalves, [address], [place], [place], [address], [place] tel:[phone] Monica [facility] Pain disorder with related psychological factorsMajor depressive disorder, recurrent, moderateOpioid use, unspecified, uncomplicated 2 Barnes Kennedi. [address], [address], [place], [address], [place]. tel:[phone] Referring Provider: Kristen Godoy, [address] [place], [address]. tel:[phone] SHARAD Gonsalves, [address], [place], [place], [address], [place] tel:[phone] [facility] No Information 2 Moualee Lauryn. [address], [address], [place], [address], [place]. tel:[phone] Referring Provider: Kristen Godoy, [address] [place], [address]. tel:[phone] SHARAD Gonsalves, [address], [place], [place], [address], [place] tel:[phone] [facility] [place] No Information 2 Bryan Eganhen. [address], [place], [place], [address], [place]. tel:[phone] Referring Provider: Vikas Adams, [address], [place], [address] . tel:[phone] [facility], [address], [address], [place], [address], [place] tel:[phone] [facility] right neck pain (chief complaint) Pain in right shoulderNeuralgia and neuritis, unspecifiedPain in right shoulderNeuralgia and neuritis, unspecified 2 [facility]. [address], [place], [place], [address], [place]. tel:[phone] Referring Provider: Moreno Bruce, [address], [place], [address]. tel:[phone] Major [facility], [address], [place], [place], [address], [place] tel:[phone] [facility] No Information 2 Pavithra Huertas. [address] [facility] [address], [place], [place], [address], [place]. tel:[phone] Referring Provider: Kristen Kwong MD R, [address] [place], [address]. tel:[phone] Psychotherap y, 30 minutes with patient Major [facility], [address] [facility] [address], [place], [place], [address], [place] tel:[phone] Monica [facility] Pain disorder with related psychological factorsMajor depressive disorder, recurrent, moderateOpioid use, unspecified, uncomplicated Nov-0 2 Cameron Kolb. [address], [address], [place], [address], [place]. tel:[phone] Referring Provider: Kristen Godoy, [address] [place], [address]. tel:[phone] Est Pt Eval 25 Min Major [facility], [address], [place], [place], [address], [place] tel:[phone] [facility] back pain (chief complaint) Body mass index (BMI) 31.0-31.9, adultSpondylosis w/o myelopathy or radiculopathy, cervical regionComplex regional pain syndrome 2 of right upper limbLow back pain, unspecified Apr-0 - 2 Moualee Lauryn. [address] [facility] [address], [address], [place], [address], [place]. tel:[phone] Referring Provider: Kristen Godoy, [address] [place], [address]. tel:[phone] Psychotherap y, 30 minutes with patient GREG Gonsalves, [address], [place], [place], [address], [place] tel:[phone] [facility] Pain disorder with related psychological factorsMajor depressive disorder, recurrent, moderateOpioid use, unspecified, uncomplicated Oct-0 2 Barnes Kennedi. [address], [address], [place], [address], [place]. tel:[phone] Referring Provider: Kristen Godoy, [address] [place], [address]. tel:[phone] Est Pt Eval 25 Min Telehealth GREG Gonsalves, [address], [place], [place], [address], [place] tel:[phone] [facility] back pain (chief complaint) Spondylosis w/o myelopathy or radiculopathy, cervical regionComplex regional pain syndrome 2 of right upper limbLow back pain, unspecifiedBody mass index (BMI) 34.0-34.9, adult 2 Moualee Lauryn. [address], [address], [place], [address], [place]. tel:[phone] Referring Provider: Kristen Godoy, [address] [place], [address]. tel:[phone] SHARAD Gonsalves, [address], [place], [place], [address], [place] tel:[phone] [facility] No Information 2 [facility] Kiya. [address], [place], [place], [address], [place]. tel:[phone] Referring Provider: Kristen Godoy, [address] [place], [address]. tel:[phone] Est Pt Eval 25 Min SHARAD Gonsalves, [address], [place], [place], [address], [place] tel:[phone] [facility] back pain (chief complaint) Body mass index (BMI) 34.0-34.9, adultSpondylosis w/o myelopathy or radiculopathy, cervical regionComplex regional pain syndrome 2 of right upper limbLow back pain, unspecified 2 Moualee Lauryn. [address], [address], [place], [address], [place]. tel:[phone] Referring Provider: Kristen Godoy, [address] [place], [address]. tel:[phone] Psychotherap y, 30 minutes with patient SHARAD Gonsalves, [address], [place], [place], [address], [place] tel:[phone] [facility] Pain disorder with related psychological factorsMajor depressive disorder, recurrent, moderateOpioid use, unspecified, uncomplicated 2 Cameron Kolb. [address], [address], [place], [address], [place]. tel:[phone] Referring Provider: Kristen Godoy, [address] [facility] [place], [address]. tel:[phone] [facility], [address], [place], [place], [address], [place] tel:[phone] [facility] No Information 2 Pavithra Kiya. [address], [place], [place], [address], [place]. tel:[phone] Referring Provider: Kristen Godoy, [address] [facility] [place], [address]. tel:[phone] [facility], [address], [place], [place], [address], [place] tel:[phone] [facility] No Information 2 Edisonisabelkimberly Combs. [address], [address], [place], [address], [place]. tel:[phone] Referring Provider: Kristen Godoy, [address] [facility] [place], [address]. tel:[phone] [facility], [address], [place], [place], [address], [place] tel:[phone] [facility] No Information 2 Jose Luis Carrillo. [address], [address], [place], [address], [place]. tel:[phone] Referring Provider: Kristen Godoy, [address] [place], [address]. tel:[phone] Psychotherap y, 45 minutes with patient SHARAD Gonsalves, [address], [place], [place], [address], [place] tel:[phone] [facility] Pain disorder with related psychological factorsMajor depressive disorder, recurrent, moderateOpioid use, unspecified, uncomplicated 2 Cameron Kolb. [address], [address], [place], [address], [place]. tel:[phone] Referring Provider: Kristen Godoy, [address] [place], [address]. tel:[phone] GREG Gonsalves, [address], [place], [place], [address], [place] tel:[phone] [facility] No Information 2 Pavithra Huertas. [address], [place], [address], [place]. tel:[phone] Referring Provider: Kristen Godoy, [address] [place], [address]. tel:[phone] Est Pt Eval 25 Min Telehealth Major [facility], [address], [place], [place], [address], [place] tel:[phone] [facility] bilateral neck pain (chief complaint) back pain (chief complaint) Spondylosis w/o myelopathy or radiculopathy, cervical regionPain in unspecified shoulderComplex regional pain syndrome 2 of right upper limbLow back pain, unspecifiedPain in left hipLong term (current) use of opiate analgesic 2 Radha Cobian. [address], [address], [place], [address], [place]. tel:[phone] Referring Provider: Kristen Godoy, [address] [place], [address]. tel:[phone] Psychotherap y, 30 minutes with patient GREG Gonsalves, [address], [place], [place], [address], [place] tel:[phone] [facility] Pain disorder with related psychological factorsMajor depressive disorder, recurrent, moderateOpioid use, unspecified, uncomplicated 2 Cameron Kolb. [address], [place], [address], [place]. tel:[phone] Referring Provider: Kristen Godoy, [address] [place], [address]. tel:[phone] GREG Gonsalves, [address], [place], [place], [address], [place] tel:[phone] [facility] No Information 1 Pavithra Huertas. [address], [place], [address], [place]. tel:[phone] Referring Provider: Kristen Godoy, [address] [place], [address]. tel:[phone] Est Pt Eval 25 Min Major [facility], [address], [place], [place], [address], [place] tel:[phone] [facility] neck, shoulder, low back (chief complaint) Spondylosis w/o myelopathy or radiculopathy, cervical regionComplex regional pain syndrome 2 of right upper limbPain in kneeBody mass index (BMI) 34.0-34.9, adult 1 Pricilla Combs. [address], [address], [place], [address], [place]. tel:[phone] Referring Provider: Kristen Godoy, [address] [place], [address]. tel:[phone] Psychotherap y, 30 minutes with patient [facility], [address], [place], [place], [address], [place] tel:[phone] [facility] Pain disorder with related psychological factorsMajor depressive disorder, recurrent, moderateOpioid use, unspecified, uncomplicated Jul-0 8 1 Barnes Kennedi. [address], [address], [place], [address], [place]. tel:[phone] Referring Provider: Kristen Godoy, [address] [place], [address]. tel:[phone] Psychotherap y, 30 minutes with patient [facility], [address], [place], [place], [address], [place] tel:[phone] [facility] Pain disorder with related psychological factors 1 Barnes Kennedi. [address], [address], [place], [address], [place]. tel:[phone] Referring Provider: Kristen Godoy, [address] [place], [address]. tel:[phone] Psychotherap y, 45 minutes with patient [facility], [address], [place], [place], [address], [place] tel:[phone] [facility] Pain disorder with related psychological factors 0 1 Barnes Kennedi. [address], [address], [place], [address], [place]. tel:[phone] Referring Provider: Kristen Godoy, [address] [place], [address]. tel:[phone] Psychotherap y, 30 minutes with patient Major SHARAD, [address], [place], [place], [address], [place] tel:[phone] [facility] Pain disorder with related psychological factorsMajor depressive disorder, recurrent, moderateOpioid use, unspecified, uncomplicated 1 Dayna Brown. [address], [address], [place], [address], [place]. tel:[phone] Referring Provider: Kristen Godoy, [address] [place], [address]. tel:[phone] Est Pt Eval 25 Min GREG Gonsalves, [address], [place], [place], [address], [place] tel:[phone] [facility] back pain (chief complaint) Spondylosis w/o myelopathy or radiculopathy, cervical regionPain in right shoulderOther cervical disc degeneration, unsp cervical regionComplex regional pain syndrome 2 of right upper limb 1 She Qiying. [address], [address], [place], [address], [place]. tel:[phone] Referring Provider: Kristen Godoy, [address] [place], [address]. tel:[phone] Major [facility], [address], [place], [place], [address], [place] tel:[phone] [facility] No Information 1 She Qiying. [address], [address], [place], [address], [place]. tel:[phone] Referring Provider: Kristen Godoy, [address] [place], [address]. tel:[phone] Est Pt Eval 25 Min Telehealth Major [facility], [address], [place], [place], [address], [place] tel:[phone] [facility] back pain (chief complaint) Complex regional pain syndrome 2 of right upper limbCervicalgiaPai n in right shoulderRadiculopa thy, cervical region 1 Jose Luis Carrillo. [address], [address], [place], [address], [place]. tel:[phone] Referring Provider: Kristen Godoy, [address] [place], [address]. tel:[phone] Est Pt Eval 25 Min Major [facility], [address] [facility] [address], [place], [place], [address], [place] tel:[phone] [facility] right neck pain (chief complaint) Body mass index (BMI) 34.0-34.9, adultCervicalgiaPa in in right shoulderRadiculopa thy, cervical regionComplex regional pain syndrome 2 of right upper limb 1 Mojeramie Combs. [address] [facility], [place], [address], [place]. tel:[phone] Referring Provider: Kristen Godoy, [address] [place], [address]. tel:[phone] Psychotherap y, 30 minutes with patient GREG Gonsalves, [address] [facility], [place], [place], [address], [place] tel:[phone] [facility] Pain disorder with related psychological factorsMajor depressive disorder, recurrent, moderateOpioid use, unspecified, uncomplicated 1 Dayna Brown. [address], [place], [address], [place]. tel:[phone] Referring Provider: Kristen Godoy, [address] [place], [address]. tel:[phone] Psychiatric Diagnostic Evaluation Major [facility], [address], [place], [place], [address], [place] tel:[phone] [facility] Pain disorder with related psychological factors 1 Barnes Kennedi. [address], [place], [address], [place]. tel:[phone] Referring Provider: Kristen Godoy, [address] [place], [place], [facility]. tel:[phone] Major [facility], [address] [facility], [place], [place], [address], [place] tel:[phone] [facility] No Information Sep-2 1 Cameron Kolb. [address], [place], [address], [place]. tel:[phone] Referring Provider: Kristen Godoy, [address] [place], [place], [facility]. tel:[phone] Est Pt Eval 25 Min Major [facility], [address], [place], [place], [address], [place] tel:[phone] [facility] bilateral shoulder pain (chief complaint) CervicalgiaPain in right shoulderRadiculopa thy, cervical regionComplex regional pain syndrome 2 of right upper limb Sep-1 1 Moualee Lauryn. [address], [address], [place], [address], [place]. tel:[phone] Referring Provider: Kristen Godoy, [address] [place], [address]. tel:[phone] Psychotherap y, 30 minutes with patient GREG GonsalvesC, [address], [place], [place], [address], [place] tel:[phone] [facility] Pain disorder with related psychological factorsMajor depressive disorder, recurrent, moderateOpioid use, unspecified, uncomplicated 1 Dayna Brown. [address], [place], [address], [place]. tel:[phone] Referring Provider: Kristen Godoy, [address] [place], [address]. tel:[phone] GREG GonsalvesC, [address], [place], [place], [address], [place] tel:[phone] [facility] Cervicalgia 1 Pavithra Huertas. [address], [place], [place], [address], [place]. tel:[phone] Referring Provider: Kristen Godoy, [address] [place], [address]. tel:[phone] Psychotherap y, 45 minutes with patient Telehealth SHARAD Gonsalves, [address], [place], [place], [address], [place] tel:[phone] [facility] Pain disorder with related psychological factors 1 Cameron Kolb. [address], [address], [place], [address], [place]. tel:[phone] Referring Provider: Kristen Godoy, [address] [place], [address]. tel:[phone] [facility], [address], [place], [place], [address], [place] tel:[phone] [facility] No Information 1 Pavithra Huertas. [address] [facility] [address], [place], [place], [address], [place]. tel:[phone] Referring Provider: Kristen Godoy, [address] [place], [address]. tel:[phone] Psychotherap y, 30 minutes with patient GREG Gonsalves, [address] [facility] [address], [place], [place], [address], [place] tel:[phone] [facility] Pain disorder with related psychological factors 1 Dayna Brown. [address] [facility], [address], [place], [address], [place]. tel:[phone] Referring Provider: Kristen Godoy, [address] [place], [address]. tel:[phone] Est Pt Eval 25 Min GREG Gonsalves, [address] [facility], [place], [place], [address], [place] tel:[phone] [facility] bilateral neck pain (chief complaint) CervicalgiaPain in right shoulderRadiculopa thy, cervical regionCardiac, heart or myocardial failure NOS 1 Moualee Lauryn. [address] [facility], [place], [address], [place]. tel:[phone] Referring Provider: Kristen Godoy, [address] [place], [address]. tel:[phone] Major [facility], [address] [facility], [place], [place], [address], [place] tel:[phone] [facility] No Information 1 Moualee Lauryn. [address] [facility], [address], [place]. tel:[phone] Referring Provider: Kristen Godoy, [address] [place], [address]. tel:[phone] Psychotherap y, 30 minutes with patient SHARAD Gonsalves, [address] [facility] [address], [place], [place], [address], [place] tel:[phone] [facility] Pain disorder with related psychological factorsMajor depressive disorder, recurrent, moderateOpioid use, unspecified, uncomplicated 1 Dayna Brown. [address] [facility], [address], [place], [address], [place]. tel:[phone] Referring Provider: Kristen Godoy, [address] [place], [address]. tel:[phone] Major [facility], [address], [place], [place], [address], [place] tel:[phone] [facility] No Information 1 Pavithra Huertas. [address] [facility] [address], [place], [address], [place]. tel:[phone] Referring Provider: Kristen Godoy, [address] [place], [address]. tel:[phone] Est Pt Eval 25 Min Major [facility], [address], [place], [place], [address], [place] tel:[phone] Monica [facility] bilateral neck pain (chief complaint) Radiculopathy, cervical regionCervicalgiaP ain in right shoulder 1 Mariya Leahy. [address] [facility] [address], [place], [address], [place]. tel:[phone] Referring Provider: Kristen Godoy, [address] [place], [address]. tel:[phone] Psychotherap y, 30 minutes with patient SHARAD Gonsalves, [address], [place], [place], [address], [place] tel:[phone] [facility] Pain disorder with related psychological factorsMajor depressive disorder, recurrent, moderateOpioid use, unspecified, uncomplicated 1 Dayna Brown. [address], [place], [address], [place]. tel:[phone] Referring Provider: Kristen Godoy, [address] [place], [address]. tel:[phone] SHARAD Gonsalves, [address] [facility] [address], [place], [address], [place] tel:[phone] [facility] Cervicalgia 1 Pavithra Huertas. [address] [facility] [address], [place], [address], [place]. tel:[phone] Referring Provider: Kristen Godoy, [address] [place], [address]. tel:[phone] Est Pt Eval 25 Min SHARAD Gonsalves, [address] [facility] [address], [place], [place], [address], [place] tel:[phone] [place] [facility] right neck pain (chief complaint) CervicalgiaPain in right shoulderRadiculopa thy, cervical region 1 Mariya Leahy. [address] [facility] [address], [place], [address], [place]. tel:[phone] Referring Provider: Kristen Godoy, [address] [place], [address]. tel:[phone] Psychotherap y, 30 minutes with patient SHARAD Gonsalves, [address], [place], [place], [address], [place] tel:[phone] [facility] Pain disorder with related psychological factorsMajor depressive disorder, recurrent, moderateOpioid use, unspecified, uncomplicated 1 Dayna Brown. [address], [address], [place], [address], [place]. tel:[phone] Referring Provider: Kristen Godoy, [address] [place], [address]. tel:[phone] Est Pt Eval 25 Min Major, [facility], [address] [facility], [place], [place], [address], [place] tel:[phone] [facility] bilateral neck pain (chief complaint) Pain in right shoulderCervicalgi aRadiculopathy, cervical region 1 Mariya Leahy. [address], [place], [address], [place]. tel:[phone] Referring Provider: Kristen Godoy, [address] [place], [address]. tel:[phone] Major, [facility], [address], [place], [place], [address], [place] tel:[phone] Monica [facility] No Information 1 Pricilla Combs. [address], [address], [place], [address], [place]. tel:[phone] Referring Provider: Kristen Godoy, [address] [place], [address]. tel:[phone] Major, [facility], [address], [place], [place], [address], [place] tel:[phone] [place] [facility] No Information 1 Pavithra Huertas. [address] [facility] [address], [place], [place], [address], [place]. tel:[phone] Referring Provider: Kristen Godoy, [address] [place], [address]. tel:[phone] Psychotherap y, 30 minutes with patient Major, [facility], [address] [facility] [address], [place], [place], [address], [place] tel:[phone] [facility] Pain disorder with related psychological factorsMajor depressive disorder, recurrent, mildOpioid use, unspecified, uncomplicated 1 Dayna Brown. [address], [place], [address], [place]. tel:[phone] Referring Provider: Kristen Godoy, [address] [place], [address]. tel:[phone] Est Pt Eval 25 Min [facility], [address], [place], [place], [address], [place] tel:[phone] [facility] bilateral neck pain (chief complaint) Pain in right shoulder 1 Machoka Orina. [address], [place], [address], [place]. tel:[phone] Referring Provider: Kristen Godoy, [address] [place], [address]. tel:[phone] Est Pt Eval 25 Min [facility], [address], [place], [place], [address], [place] tel:[phone] [facility] bilateral neck pain (chief complaint) CervicalgiaRadicul opathy, cervical region Oct- 1 Mach[place] Orina. [address], [place], [address], [place]. tel:[phone] Referring Provider: Kristen Godoy, [address] [place], [address]. tel:[phone] Psychotherap y, 30 minutes with patient GREG Gonsalves, [address] [facility] [address], [place], [place], [address], [place] tel:[phone] [facility] Pain disorder with related psychological factorsMajor depressive disorder, recurrent, moderateOpioid use, unspecified, uncomplicated 1 Dayna Brown. [address] [facility], [address], [place], [address], [place]. tel:[phone] Referring Provider: Kristen Godoy, [address] [place], [address]. tel:[phone] Major [facility], [address] [facility] [address], [place], [place], [address], [place] tel:[phone] [facility] CervicalgiaCervica lgiaRadiculopathy, cervical regionPain in unspecified shoulder 1 Pavithra Huertas. [address] [facility] [address], [place], [address], [place]. tel:[phone] Referring Provider: Kristen Godoy, [address] [place], [address]. tel:[phone] Est Pt Eval 25 Min Major [facility], [address] [facility] [address], [place], [place], [address], [place] tel:[phone] [facility] right neck pain (chief complaint) CervicalgiaRadicul opathy, cervical region 1 Mariya Leahy. [address] [facility] [address], [place], [address], [place]. tel:[phone] Referring Provider: Kristen Godoy, [address] [facility], [place], [address]. tel:[phone] SHARAD Gonsalves, [address], [place], [place], [address], [place] tel:[phone] [facility] No Information 1 Sumit Knapp. [address], [place], [place], [address], [place]. tel:[phone] Referring Provider: Ra Tellez, [address], [place], [address] . tel:[phone] [facility], [address], [place], [address], [place] tel:[phone] [facility] Spondylosis w/o myelopathy or radiculopathy, cervical regionCervical disc disorder, unspecified, high cervical regionCervicalgia 1 [facility]. [address], [place], [place], [address], [place]. tel:[phone] Referring Provider: Ra Tellez, [address], [place], [address] . tel:[phone] SHARAD Gonsalves, [address], [place], [place], [address], [place] tel:[phone] [facility] CervicalgiaCervica lgiaRadiculopathy, cervical regionPain in unspecified shoulder 1 [facility] Anne. [address], [place], [place], [address], [place]. tel:[phone] Referring Provider: Kristen Godoy, [address] [facility], [place], [address]. tel:[phone] Psychotherap y, 30 minutes with patient SHARAD Gonsalves, [address], [place], [place], [address], [place] tel:[phone] [facility] Pain disorder with related psychological factorsMajor depressive disorder, recurrent, moderateOpioid use, unspecified, uncomplicated 1 Dayna Brown. [address], [place], [address], [place]. tel:[phone] Referring Provider: Kristen Godoy, [address] [place], [address]. tel:[phone] Est Pt Eval 25 Min Major [facility], [address] [facility] [address], [place], [place], [address], [place] tel:[phone] [facility] right shoulder pain (chief complaint) bilateral neck pain (chief complaint) Pain in right wristCervicalgia 1 Hayleeoka Orierin. [address], [place], [address], [place]. tel:[phone] Referring Provider: Kristen Godoy, [address] [place], [address]. tel:[phone] Major [facility], [address] [facility] [address], [place], [place], [address], [place] tel:[phone] [facility] No Information 1 Hayleeoka Orina. [address], [place], [address], [place]. tel:[phone] Referring Provider: Kristen Godoy, [address] [place], [address]. tel:[phone] Psychotherap y, 30 minutes with patient GREG GonsalvesC, [address] [facility], [place], [place], [address], [place] tel:[phone] [facility] Pain disorder with related psychological factorsMajor depressive disorder, recurrent, moderateOpioid use, unspecified, uncomplicated 1 Dayna Brown. [address], [place], [address], [place]. tel:[phone] Referring Provider: Kristen Godoy, [address] [place], [address]. tel:[phone] [facility], [address], [place], [address], [place] tel:[phone] [facility] Pain disorder with related psychological factors [facility]. [address], [place], [address], [place]. tel:[phone] Referring Provider: Kristen Godoy, [address] [facility] [place], [address]. tel:[phone] [facility], [address], [place], [address], [place] tel:[phone] [facility] No Information 1 [facility] Isabel. [address], [place], [place], [address], [place]. tel:[phone] Referring Provider: Kristen Godoy, [address] [facility] [place], [address]. tel:[phone] [facility], [address], [place], [address], [place] tel:[phone] [facility] No Information 0 [facility]. [address], [place], [address], [place]. tel:[phone] Referring Provider: Kristen Godoy, [address] [facility] [place], [address]. tel:[phone] Est Pt Eval 25 Min Telehealth SHARAD Gonsalves, [address], [place], [place], [address], [place] tel:[phone] [facility] bilateral neck pain (chief complaint) Pain in right shoulderSpondylosi s w/o myelopathy or radiculopathy, cervical regionOther cervical disc degeneration, unsp cervical regionChronic pain syndromeCervicalgi a 0 Hollie Huber. [address], [place], [address], [place]. tel:[phone] Referring Provider: Kristen Godoy, [address] [place], [address]. tel:[phone] GREG Gonsalves, [address], [place], [address], [place] tel:[phone] [facility] CervicalgiaCervica lgiaRadiculopathy, cervical regionPain in unspecified shoulder 0 Pavithra Huertas. [address], [place], [address], [place]. tel:[phone] Referring Provider: Kristen Godoy, [address] [place], [address]. tel:[phone] GREG Gonsalves, [address], [place], [address], [place] tel:[phone] [facility] Pain disorder with related psychological factorsMajor depressive disorder, recurrent, moderateOpioid use, unspecified, uncomplicated 0- 0 Dayna Brown. [address], [place], [address], [place]. tel:[phone] Referring Provider: Kristen Godoy, [address] [place], [address]. tel:[phone] Est Pt Eval 15 Min Telehealth Major, [facility], [address] [facility], [place], [place], [address], [place] tel:[phone] [facility] bilateral neck pain (chief complaint) Wrist Pain (chief complaint) CervicalgiaChronic pain syndromeOpioid dependencePain in right wristRadiculopathy , cervical region Nov-3 0-202 0 Hollie Huber. [address] [facility] [address] [facility] [address], [place], [address], [place]. tel:[phone] Referring Provider: Kristen Kwong MD R, [address] [facility], [place], [address]. tel:[phone] [facility], [address] [facility] [facility], [place], [address], [place] tel:[phone] [facility] bilateral neck pain (chief complaint) CervicalgiaSpondyl osis w/o myelopathy of cervical regionOther cervical disc degeneration, unsp cervical regionSpondylosis w/o myelopathy or radiculopathy, cervical regionOther cervical disc degeneration, unsp cervical regionCervicalgia Nov-0 2-202 0 [facility]. [address] [facility] [address], [place], [place], [address], [place]. tel:[phone] Referring Provider: Ra Tellez, [address], [place], [address] . tel:[phone] Major [facility], [address] [facility], [place], [place], [address], [place] tel:[phone] [facility] No Information Nov-0 2-202 0 Sumit Knapp. [address], [place], [place], [address], [place]. tel:[phone] Referring Provider: Ra Tellez, [address], [place], [address] . tel:[phone] Major [facility], [address] [facility] [address], [place], [place], [address], [place] tel:[phone] [facility] CervicalgiaCervica lgiaRadiculopathy, cervical regionPain in unspecified shoulder 0 Pavithra Huertas. [address] [facility] [address], [place], [address], [place]. tel:[phone] Referring Provider: Kristen Godoy, [address] [place], [address]. tel:[phone] Psychotherap y, 30 minutes with patient Major [facility], [address] [facility] [address], [place], [place], [address], [place] tel:[phone] [place] [facility] Pain disorder with related psychological factorsOpioid use, unspecified, uncomplicatedMajor depressive disorder, recurrent, moderate 0 Dayna Brown. [address] [facility] [address], [place], [address], [place]. tel:[phone] Referring Provider: Kristen Godoy, [address] [place], [address]. tel:[phone] Est Pt Eval 25 Min Major [facility], [address] [facility] [address], [place], [place], [address], [place] tel:[phone] [facility] bilateral neck pain (chief complaint) AnxietyCervicalgia Chronic pain syndromePain in right shoulderRadiculopa thy, cervical regionPain in right wrist 0 Hollie Huber. [address] [facility] [address], [place], [address], [place]. tel:[phone] Referring Provider: Kristen Godoy, [address] [facility] [place], [address]. tel:[phone] SHARAD Gonsalves, [address] [facility] [address], [place], [place], [address], [place] tel:[phone] [facility] No Information 0 Hollie Huber. [address], [place], [address], [place]. tel:[phone] Referring Provider: Kristen Godoy, [address] [facility], [place], [address]. tel:[phone] Psychotherap y, 30 minutes with patient SHARAD Gonsalves, [address] [facility] [address], [place], [place], [address], [place] tel:[phone] [facility] Pain disorder with related psychological factorsMajor depressive disorder, recurrent, moderateOpioid use, unspecified, uncomplicated 0 Dayna Brown. [address], [place], [address], [place]. tel:[phone] Referring Provider: Kristen Godoy, [address] [facility], [place], [address]. tel:[phone] SHARAD Gonsalves, [address] [facility] [address], [place], [address], [place] tel:[phone] [facility] CervicalgiaCervica lgiaRadiculopathy, cervical regionPain in unspecified shoulder 0 Pavithra Huertas. [address] [facility] [address], [place], [address], [place]. tel:[phone] Referring Provider: Kristen Godoy, [address] [facility], [place], [address]. tel:[phone] Est Pt Eval 25 Min SHARAD Gonsalves, [address] [facility] [address], [place], [place], [address], [place] tel:[phone] [facility] [facility] bilateral neck pain (chief complaint) CervicalgiaRadicul opathy, cervical regionPain in right shoulderChronic pain syndromeAnxiety Oct 5-202 0 Ianmonica Cecile. [address], [place], [place], [address], [place]. tel:[phone] Referring Provider: Kristen Godoy, [address] [place], [address]. tel:[phone] Psychotherap y, 30 minutes with patient GREG Gonsalves, [address] [facility] [address] [facility], [place], [place], [address], [place] tel:[phone] [facility] Pain disorder with related psychological factorsMajor depressive disorder, recurrent, moderate Sep-0 8-202 0 FlorentinoMarissa Hall. [address] [facility], [address], [place], [place], [address], [place]. tel:[phone] Referring Provider: Kristen Godoy, [address] [facility], [place], [address]. tel:[phone] GREG Gonsavles, [address], [place], [place], [address], [place] tel:[phone] [facility] CervicalgiaCervica lgiaRadiculopathy, cervical regionPain in unspecified shoulder Sep-0 8-202 0 El Burgos. [address] [facility] [address], [facility] , [place], [address], [place]. tel:[phone] Referring Provider: Kristen Godoy, [address] [facility], [place], [address]. tel:[phone] Est Pt Eval 25 Min GREG Gonsalves, [address], [place], [place], [address], [place] tel:[phone] [facility] bilateral neck pain (chief complaint) CervicalgiaChronic pain syndromePain in unspecified shoulderRadiculopa thy, cervical region Apr- 0 [facility] Orina. [address], [place], [address], [place]. tel:[phone] Referring Provider: Kristen Godoy, [address] [place], [address]. tel:[phone] GREG Gonsalves, [address], [place], [address], [place] tel:[phone] [facility] No Information 0 [facility] Ori. [address] [facility] [address], [place], [address], [place]. tel:[phone] Referring Provider: Kristen Godoy, [address] [place], [address]. tel:[phone] GREG Gonsalves, [address] [facility] [address], [place], [address], [place] tel:[phone] [facility] CervicalgiaCervica lgiaRadiculopathy, cervical regionPain in unspecified shoulder 0 [facility] Kiya. [address] [facility] [address], [place], [address], [place]. tel:[phone] Referring Provider: Kristen Godoy, [address] [place], [address]. tel:[phone] Est Pt Eval 25 Min GREG Gonsalves, [address] [facility] [address], [place], [address], [place] tel:[phone] [place] [facility] bilateral neck pain (chief complaint) joint pain (chief complaint) CervicalgiaMajor depressv disorder, recurrent severe w/o psych featuresOpioid dependencePain in right wristRadiculopathy , cervical region 0 [place] Orina. [address], [place], [address], [place]. tel:[phone] Referring Provider: Kristen Godoy, [address] [facility], [place], [address]. tel:[phone] Psychotherap y, 30 minutes with patient SHARAD Gonsalves, [address], [place], [place], [address], [place] tel:[phone] [facility] Pain disorder with related psychological factorsMajor depressive disorder, recurrent, mildOpioid use, unspecified, uncomplicated 0 Kiley Hall. [address], [place], [place], [address], [place]. tel:[phone] Referring Provider: Kristen Godoy, [address] [place], [address]. tel:[phone] SHARAD Gonsalves, [address], [place], [place], [address], [place] tel:[phone] [facility] No Information 0 [place] Orina. [address], [place], [address], [place]. tel:[phone] Referring Provider: Kristen oGdoy, [address] [place], [address]. tel:[phone] Psychotherap y, 30 minutes with patient SHARAD Gonsalves, [address], [place], [place], [address], [place] tel:[phone] [facility] Opioid use, unspecified, uncomplicated 0 Dinorah Cole. [address], [place], [place], [address], [place]. tel:[phone] Referring Provider: Kristen Godoy, [address] [place], [address]. tel:[phone] Est Pt Eval 25 Min [facility], [address], [place], [place], [address], [place] tel:[phone] [facility] bilateral neck pain (chief complaint) joint pain (chief complaint) AnxietyCervicalgia Opioid dependenceChronic pain syndromePain in right wristRadiculopathy , cervical region 0 Hollie Huber. [address], [place], [address], [place]. tel:[phone] Referring Provider: Kristen Godoy, [address] [place], [address]. tel:[phone] [facility], [address], [place], [address], [place] tel:[phone] [facility] CervicalgiaCervica lgiaRadiculopathy, cervical regionPain in unspecified shoulder 0 Pavithra Huertas. [address], [place], [address], [place]. tel:[phone] Referring Provider: Kristen Godoy, [address] [place], [address]. tel:[phone] Est Pt Eval 25 Min [facility], [address], [place], [address], [place] tel:[phone] [facility] bilateral neck pain (chief complaint) joint pain (chief complaint) AnxietyCervicalgia Chronic pain syndromeOpioid dependencePain in right wristRadiculopathy , cervical region 0 Hollie Huber. [address], [place], [address], [place]. tel:[phone] Referring Provider: Kristen Godoy, [address] [place], [address]. tel:[phone] GREG Gonsalves, [address], [place], [place], [address], [place] tel:[phone] [facility] CervicalgiaCervica lgiaRadiculopathy, cervical regionPain in unspecified shoulder 0 Pavithra Huertas. [address] [facility] [address], [place], [place], [address], [place]. tel:[phone] Referring Provider: Kristen Godoy, [address] [place], [address]. tel:[phone] Psychotherap y, 30 minutes with patient GREG Gonsalves, [address], [place], [place], [address], [place] tel:[phone] [facility] Opioid use, unspecified, uncomplicated 0 Dinorah Cole. [address] [facility], [address], [place], [place], [address], [place]. tel:[phone] Referring Provider: Kristen Godoy, [address] [place], [address]. tel:[phone] Est Pt Eval 15 Min Telehealth GREG Gonsalves, [address], [place], [place], [address], [place] tel:[phone] [facility] bilateral neck pain (chief complaint) joint pain (chief complaint) CervicalgiaRadicul opathy, cervical regionMajor depressv disorder, recurrent severe w/o psych featuresAnxietyPai n in unspecified shoulderOpioid dependencePain in right wristChronic pain syndrome 0 Hollie Huber. [address] [facility] [address], [place], [place], [address], [place]. tel:[phone] Referring Provider: Kristen Godoy, [address] [place], [address]. tel:[phone] Est Pt Eval 25 Min [facility], [address] [facility] [address], [place], [place], [address], [place] tel:[phone] [facility] bilateral neck pain (chief complaint) CervicalgiaPostlam inectomy syndrome, not elsewhere classifiedRadiculo tripp, cervical regionLong term (current) use of opiate analgesicPain disorder with related psychological factorsFusion of spine, cervical region 0 Mariya Leahy. [address] [facility] [address], [place], [address], [place]. tel:[phone] Referring Provider: Kristen Godoy, [address] [place], [address]. tel:[phone] Est Pt Eval 25 Min [facility], [address] [facility] [address], [place], [place], [address], [place] tel:[phone] [facility] Abdominal pain (chief complaint) right hip pain (chief complaint) bilateral neck pain (chief complaint) CervicalgiaRadicul opathy, cervical regionPostlaminect kvng syndrome, not elsewhere classifiedPain in right wristLong term (current) use of opiate analgesicGeneraliz ed anxiety disorderFusion of spine, cervical region 0 Hollie Huber. [address] [facility] [address], [place], [place], [address], [place]. tel:[phone] Referring Provider: Kristen Godoy, [address] [place], [address]. tel:[phone] Psychotherap y, 30 minutes with patient GREG GonsalvesC, [address] [facility] [address], [place], [place], [address], [place] tel:[phone] [facility] Pain disorder with related psychological factorsMajor depressv disorder, recurrent severe w/o psych features 0 Marisela To. [address] [facility] [address], [place], [address], [place]. tel:[phone] Referring Provider: Kristen Godoy, [address] [place], [address]. tel:[phone] GREG Gonsalves, [address] [facility] [address], [place], [place], [address], [place] tel:[phone] [facility] CervicalgiaCervica lgiaRadiculopathy, cervical regionPain in unspecified shoulder 0 Pavithra Huertas. [address] [facility] [address], [place], [place], [address], [place]. tel:[phone] Referring Provider: Kristen Godoy, [address] [place], [address]. tel:[phone] GREG Gonsalves, [address], [place], [place], [address], [place] tel:[phone] [facility] CervicalgiaCervica lgiaRadiculopathy, cervical regionPain in unspecified shoulder 0 El Burgos. [address] [facility] [address], [facility] , [place], [address], [place]. tel:[phone] Referring Provider: Kristen Godoy, [address] [facility], [place], [address]. tel:[phone] Est Pt Eval 25 Min Telehealth SHARAD Gonsalves, [address] [facility] [address], [place], [place], [address], [place] tel:[phone] [facility] bilateral neck pain (chief complaint) Radiculopathy, cervical regionCervicalgiaP ostlaminectomy syndrome, not elsewhere classifiedLong term (current) use of opiate analgesicGeneraliz ed anxiety disorderFusion of spine, cervical regionRadiculopath y, lumbar region Oct- 0 Mariya Leahy. [address] [facility] [address], [place], [address], [place]. tel:[phone] Referring Provider: Kristen Godoy, [address] [place], [address]. tel:[phone] Psychotherap y, 30 minutes with patient Major [facility], [address] [facility] [address], [place], [place], [address], [place] tel:[phone] [facility] Pain disorder with related psychological factorsMajor depressv disorder, recurrent severe w/o psych featuresOpioid use, unspecified, uncomplicated 0 Florentino-Lilliana leo Isabel. [address] [facility] [address], [address], [place], [place], [address], [place]. tel:[phone] Referring Provider: Kristen Godoy, [address] [place], [address]. tel:[phone] Est Pt Eval 15 Min Major [facility], [address] [facility] [address], [place], [place], [address], [place] tel:[phone] [facility] bilateral neck pain (chief complaint) CervicalgiaPain in right wristLong term (current) use of opiate analgesicGeneraliz ed anxiety disorderPostlamine ctomy syndrome, not elsewhere classifiedFusion of spine, cervical regionLow back pain Oct- 0 Hollie Huber. [address], [place], [place], [address], [place]. tel:[phone] Referring Provider: Kristen Godoy, [address] [place], [address]. tel:[phone] SHARAD Gonsalves, [address], [place], [place], [address], [place] tel:[phone] [facility] CervicalgiaCervica lgiaRadiculopathy, cervical regionPain in unspecified shoulder 0 0 Neema To. [address] [place], [address], [place]. tel:[phone] Referring Provider: Kristen Godoy, [address] [place], [address]. tel:[phone] Est Pt Eval 25 Min GREG Gonsalves, [address], [place], [address], [place] tel:[phone] [facility] bilateral neck pain (chief complaint) joint pain (chief complaint) CervicalgiaFusion of spine, cervical regionGeneralized anxiety disorderPostlamine ctomy syndrome, not elsewhere classifiedPain in right wrist 0 Hollie Huber. [address] [facility] [address], [place], [address], [place]. tel:[phone] Referring Provider: Kristen Godoy, [address] [place], [address]. tel:[phone] SHARAD Gonsalves, [address], [place], [address], [place] tel:[phone] [place] [facility] No Information 0 Hollie Huber. [address], [place], [address], [place]. tel:[phone] Referring Provider: Kristen Godoy, [address] [place], [address]. tel:[phone] SHARAD Gonsalves, [address], [place], [address], [place] tel:[phone] [facility] CervicalgiaCervica lgiaRadiculopathy, cervical regionPain in unspecified shoulder 0 Pavithra Huertas. [address] [facility] [address], [place], [address], [place]. tel:[phone] Referring Provider: Kristen Godoy, [address] [place], [address]. tel:[phone] Est Pt Eval 25 Min SHARAD Gonsalves, [address] [facility] [address], [place], [place], [address], [place] tel:[phone] [facility] back pain (chief complaint) Fusion of spine, cervical regionCervicalgiaG eneralized anxiety disorderPain in right wristRadiculopathy , cervical regionPostlaminect kvng syndrome, not elsewhere classifiedLow back painLong term (current) use of opiate analgesicRadiculop athy, lumbar region 0 Hollie Huber. [address] [facility] [address], [place], [place], [address], [place]. tel:[phone] Referring Provider: Kristen Godoy, [address] [place], [address]. tel:[phone] Psychotherap y, 30 minutes with patient SHARAD Gonsalves, [address] [facility] [address], [place], [place], [address], [place] tel:[phone] [facility] Opioid use, unspecified, uncomplicated 0 Dinorah Cole. [address] [facility], [address], [place], [place], [address], [place]. tel:[phone] Referring Provider: Kristen Godoy, [address] [place], [address]. tel:[phone] SHARAD Gonsalves, [address] [facility] [address], [place], [place], [address], [place] tel:[phone] [facility] Opioid use, unspecified, uncomplicated 9 [place] Cole. [address] [facility], [address], [place], [place], [address], [place]. tel:[phone] Referring Provider: Kristen Godoy, [address] [place], [address]. tel:[phone] Est Pt Eval 25 Min [facility], [address] [facility], [place], [place], [address], [place] tel:[phone] [facility] back pain (chief complaint) CervicalgiaRadicul opathy, cervical regionPain in right wristPostlaminecto my syndrome, not elsewhere classifiedFusion of spine, cervical regionLong term (current) use of opiate analgesicGeneraliz ed anxiety disorder 9 Hollie Huber. [address] [facility] [address], [place], [address], [place]. tel:[phone] Referring Provider: Kristen Godoy, [address] [place], [address]. tel:[phone] Est Pt Eval 25 Min [facility], [address] [facility], [place], [place], [address], [place] tel:[phone] [facility] bilateral neck pain (chief complaint) Postlaminectomy syndrome, not elsewhere classifiedPain in right wristLong term (current) use of opiate analgesicRadiculop athy, cervical region 9 Burgess Zaman. [address] [facility] [address], [place], [address], [place]. tel:[phone] Referring Provider: Kristen Godoy, [address] [place], [address]. tel:[phone] [facility], [address], [place], [place], [address], [place] tel:[phone] [facility] No Information 9 Ianmonica Cecile. [address], [place], [place], [address], [place]. tel:[phone] Referring Provider: Kristen Godoy, [address] [place], [address]. tel:[phone] Psychotherap y, 30 minutes with patient Major, [facility], [address], [place], [place], [address], [place] tel:[phone] [facility] Opioid use, unspecified, uncomplicatedPain disorder with related psychological factors 9 Dinorah Cole. [address], [place], [place], [address], [place]. tel:[phone] Referring Provider: Kristen Godoy, [address] [place], [address]. tel:[phone] Est Pt Eval 25 Min [facility], [address], [place], [place], [address], [place] tel:[phone] [facility] back pain (chief complaint) Postlaminectomy syndrome, not elsewhere classifiedRadiculo tripp, cervical regionLong term (current) use of opiate analgesic 9 Yana Skinner. [address], [place], [place], [address], [place]. tel:[phone] Referring Provider: Kristen Godoy, [address] [place], [address]. tel:[phone] Est Pt Eval 25 Min [facility], [address] [facility], [place], [place], [address], [place] tel:[phone] [facility] Neck Pain (chief complaint) CervicalgiaPostlam inectomy syndrome, not elsewhere classifiedLong term (current) use of opiate analgesicRadiculop athy, cervical regionPain in right wrist 9 Hollie Huber. [address], [place], [place], [address], [place]. tel:[phone] Referring Provider: Kristen Godoy, [address] [place], [address]. tel:[phone] GREG Gonsalves, [address], [place], [place], [address], [place] tel:[phone] [facility] CervicalgiaCervica lgiaRadiculopathy, cervical regionPain in unspecified shoulder May- 9 [facility] Kiya. [address], [place], [address], [place]. tel:[phone] Referring Provider: Kristen Godoy, [address] [place], [address]. tel:[phone] GREG Gonsalves, [address], [place], [place], [address], [place] tel:[phone] [facility] CervicalgiaCervica lgiaRadiculopathy, cervical regionPain in unspecified shoulder Apr- 9 [facility] Kiya. [address], [place], [address], [place]. tel:[phone] Referring Provider: Kristen Godoy, [address] [place], [address]. tel:[phone] New Pt Eval 45 Min GREG Gonsalves, [address], [place], [place], [address], [place] tel:[phone] [facility] bilateral neck pain (chief complaint) bilateral wrist pain (chief complaint) CervicalgiaPostlam inectomy syndrome, not elsewhere classifiedLong term (current) use of opiate analgesic Apr- 9 Sumit Tidwell. [address] [facility] [address], [place], [place], [address], [place]. tel:[phone] Referring Provider: Kristen Kwong MD R, [address] [place] [address], [address]. tel:[phone] Family History Family Member Type Diagnosis Age At Onset Sister Problem (finding) Alcoholism Father Problem (finding) Cancer Mother Problem (finding) COPD Sister Problem (finding) Depression Father Problem (finding) Heart Disease Brother Problem (finding) Depression Mother Problem (finding) Heart Disease Father Problem (finding) Alcoholism Mother Problem (finding) Depression Payers Payer name Insurance type Covered constitution party ID Authoriza tishanda(s) [employer] [id number] [facility] [id number] Social History Type Description Quantity Date Captured [...] ordered Referral Ordered: Referrals: Pain Management. Location: [facility]. Evaluate and treat ordered Referral Ordered: Gagandeep Quinn MD -Pain Management (related to Radiculopathy, cervical region) ordered Referral Referred To: Gagandeep Quinn MD [address] [place] [address], [phone] Ordered: Referrals: Pain Management. Gagandeep Quinn MD. Location: [facility]. Assume care ordered Referral Ordered: Pain Management (related to Complex regional pain syndrome 2 of rt upper limb) ordered Referral Ordered: Referrals: Pain Management. Location: [facility]. Evaluate and treat ordered Referral Referred To: cervical epidural steroid injection Ordered: cervical epidural steroid injection C6-7 ordered Referral Referred To: Ruby De Los Santos Ordered: Obtain - Outside Med Recs: Ruby De Los Santos ordered Referral Ordered: Obtain - Outside Med Recs: - [facility] ordered Referral Referred To: stellate ganglion nerve block Ordered: stellate ganglion nerve block on the right ordered Future Order: Lab Order Alcohol (Ethyl Glucuronide) (Alcohol), Ordered on: Ordered Future Order: Lab Order Confirma tory Urine Drug Screen (UDT) (7-Drug Class), Ordered on: Ordered Future Order: Radiology Order X- RAY - Lumbar Spine (AP, Neutral, Lateral Neutral, Flexion, Extension Views) ([id number]), Ordered on: Ordered Future Order: Radiology Order MR I - Lumbar Spine W/O Contrast ([id number]), Ordered on: Ordered Future Order: Radiology Order MR I - Shoulder W/O Contrast ([id number]), Ordered on: Ordered History Of Present Illness [...] injections. neck pain The pain is loca shanw in the posterior neck on both sides. [...] denies relieving factors. back pain (comments) Comments: Annie osl reports she is on oxygen daily currently [...] been able to get this filled by [facility] by then- Refill and continue Tizanidine 4mg up to 3x/day as needed, #90 for 30 days, for fill today 03/11/24- Continue Lidocaine 4% patchesAppointments: - Keep 05/24/2024 appointment with [facility]- Follow up with [facility] as scheduled- Follow up with physician elementary assistant teacher or nurse practitioner as needed, telehealth [place] Related to Complex regional pain syndrome 2 of rt upper limb Giving encouragement to exercise Related to Body mass index [BMI] 27.0-27.9, adult - Refill and continu e Buprenorphine 2mg 2 tabs up to 3x/day, #180 for 30 days, 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 03/06/24, to start on 03/08/24- Continue Tizanidine 4mg up to 3x/day as needed, refill waiting at pharmacy - Continue Lidocaine 4% patches- Keep 03/03/2024 appointment with [facility] - Keep 05/24/2024 appointment with [facility]- Follow up with physician elementary assistant teacher or nurse practitioner as needed, telehealth [place] Related to Complex regional pain syndrome 2 of rt upper limb Giving encouragement to exercise Related to Body mass index [BMI] 27.0-27.9, adult Hypertension education Related t o Elevated blood-pressure reading, w/o diagnosis of htn - Refill and continu e Buprenorphine 2mg 2 tabs up to 3x/day, for fill 02/08/24- Continue Tizanidine 4mg up to 3x/day as needed, refill waiting at pharmacy - Continue Lidocaine 4% patches- Follow up with [facility] to assume care for pain medication management- Follow up with physician elementary assistant teacher or nurse practitioner in one month, in CLINIC if needing refill before [place] appointment Related to Complex regional pain syndrome 2 of rt upper limb Lifestyle education regarding di et Related to Body mass index [BMI] 28.0-28.9, adult - Refill and continu e Buprenorphine 2mg 2 tabs up to 3x/day, for fill 01/09/24- Continue Tizanidine 4mg up to 3x/day as needed, refill waiting at pharmacy - Continue Lidocaine 4% patches- Referral sent to [facility] to assume care for pain medication management- Follow up with physician elementary assistant teacher or nurse practitioner in one month, in [...] Continue Lidocaine 4% patches- Referral sent to [facility] for pain medication management Related to Complex regional pain syndrome 2 of rt upper limb Giving encouragement to exercise Related to Body mass index [BMI] 28.0-28.9, adult - Follow up with Dr. Monica Snell at [facility] for right shoulder - Reschedule right shoulder joint injection*Call [phone] to schedule Related to Pain in right [...] referral from us for the clinic in [place] - Continue Tizanidine 4mg up to 3x/day [...] Lidocaine 4% patches- Follow up to [facility] for medication management if PCP does not take over- Follow up in one month with [facility] if needed Related to Complex regional pain syndrome 2 of rt upper limb - Follow up with Dr. Monica Snell at [facility] for right shoulder - Reschedule right shoulder joint injection on 08/16 Related to Pain in right shoulder Giving encouragement to exercise Related to Body mass index [BMI] 28.0-28.9, adult - Follow up with Dr. Monica Snell at [facility] for right shoulder - Complete right shoulder [...] Related to Pain in left hip - Follow up with Dr. Monica Snell at [facility] for right shoulder - Order right shoulder joint injection Related to Pain in right shoulder - Refill and continu e Buprenorphine 2mg 5x/day, for fill 07/11- Continue Tizanidine 4mg up to TID. - Continue Lidocaine 4% patches- Toradol injection today- Follow up in one month with [facility] or with [facility] [employer] for medication management Related to Complex regional pain syndrome 2 of rt upper limb Giving encouragement to exercise Related to Body mass index [BMI] 28.0-28.9, adult - Follow up with Dr. Monica Snell at [facility] for right shoulder Related to Pain in right shoulder - Refill and continu e Buprenorphine 2mg 5x/day, for fill 06/11- Continue Tizanidine 4mg up to TID. - Continue Lidocaine 4% patches- Toradol injection today- Follow up in one month with [facility] or with [facility] for medication management Related to Complex regional pain syndrome 2 of rt upper limb Giving encouragement to exercise Related to Body mass index [BMI] 29.0-29.9, adult - Refill and continu e Buprenorphine 2mg 5x/day, for fill early on 05/10- Continue Tizanidine 4mg up to TID. - Continue Lidocaine 4% patches- Toradol injection today- Follow up in one month with [facility] or with [employer] for medication management Related to Complex regional pain syndrome 2 of rt upper limb Giving encouragement to exercise Related to Body mass index [BMI] 29.0-29.9, adult - Refill and continu e Buprenorphine 2mg 5x/day, for fill early on 04/09- Continue Tizanidine 4mg up to TID. - Continue Lidocaine 4% patches- Follow up in one month with [facility] or with [facility] for medication management Related to Complex regional pain syndrome 2 of rt upper limb Giving encouragement to exercise Related to Body mass index [BMI] 29.0-29.9, adult - Refill and continu e Buprenorphine 2mg 5x/day, for fill on 03/13- Prescribed Tizanidine 4mg up to TID. - Continue Lidocaine 4% patches- Follow up in one month with [facility] or with [facility] for medication management Related to Complex regional pain syndrome 2 of rt upper limb Giving encouragement to exercise Related to Body mass index [BMI] 29.0-29.9, adult - Refill and continu e Methocarbamol 500mg 2x/day- Refill and continue Buprenorphine 2mg 5x/day, for fill on 02/07 to start on 02/11- Continue Lidocaine 4% patches- Follow up in one month with [facility] for pain medication management Related to [...] Schedule cervical MRI as previously ordered at [facility] - Refill and continue Percocet 7.5mg up to 3x/day for fill 04/25/22- Refill and continue buprenorphine - Continue Methocarbamol 500mg 2x/day. no script today- Obtain medical records including [facility] reports [facility] [place] - Consider intrathecal pain pump - Refill [...] Obtain medical records including imaging reports from [facility] Dr. Warren Velázquez- Consider intrathecal pain pump - Refill and increase Buprenorphine 2mg, increased to 3x/day #1 in the morning and #2 at night for fill 03/20/22- Follow up in one month with [facility] Related to Complex regional pain syndrome 2 of rt upper limb Lifestyle education regarding di et Related to Body mass index [BMI] 32.0-32.9, adult -Follow up in the clinic Related to Complex regional pain syndrome 2 of right upper limb Same plan of care as statement for above diagnosis, no changes Related to Neuralgia and neuritis, unspecified - Order lumbar MRI a t [facility] [...] 32.0-32.9, adult -Schedule lumbar chiara ging at [facility]. Orders placed previously. Related to Low back [...] -Continue Lidocaine 4% patch-Schedule cervical MRI at [facility]-Follow up with [facility] in one month Related to Spondylosis w/o myelopathy or radiculopathy, cervical region Giving encouragement to exercise Related to Body mass index [BMI] 32.0-32.9, adult -Reschedule Stellate ganglion nerve block with sedation when able to within the next 1-2 months Related to Complex regional pain syndrome 2 of right upper limb -Schedule lumbar chiara ging at [facility]. Orders placed previously. Related to Low back [...] as needed-Fax records from Dr. Verduzco with [facility] to [facility] Medical Records at [phone]-Schedule cervical MRI at [facility]-Follow up with [facility] in one month Related [...] neuritis, unspecified -Schedule lumbar chiara ging at [facility] in [place]. Orders placed last visit. Related to Low back pain, unspecified -Continue Percocet 7 .5-325mg, up to 3x/day as needed for severe pain, for fill 5/3-Continue Oxycontin 10mg 2x/day, for fill 4/16-Continue Buprenorphine 2mg 3x/day, for fill 4/8-Continue Methocarbamol 500mg 2x/day as needed -Continue Lidocaine 4% patch-Schedule cervical MRI at [facility]-Follow up with [facility] in one month Related to Spondylosis w/o myelopathy or radiculopathy, cervical region -Stellate ganglion n erve block today The risks and benefits of the procedure will be reviewed with the physician on the day of the procedure. Related to Complex regional pain syndrome 2 of right upper limb Giving encouragement to exercise Related to Body mass index [BMI] 31.0-31.9, adult Dietary needs education Related to Body [...] fill 4/3-Continue Oxycontin 10mg 2x/day, for fill 11/09-Continue Buprenorphine 2mg 3x/day, for fill today-Continue Methocarbamol 500mg 2x/day as needed -Continue Lidocaine 4% patch-Order MRI of the cervical spine at [facility] in [place] -Follow up with [facility] in one month Related to Spondylosis w/o myelopathy or radiculopathy, cervical region -Order MRI of the tico mbar spine at [facility] -Order stationary neutral A/P and lateral views x rays at [facility] in [place]-Order lateral flexion vs extension x ray of the lumbar spine at [facility] in [place] Related to Low back pain, unspecified Giving [...] needed -Prescribe Lidocaine 4% patch-JUAN CARLOS for [facility] at [facility] (Dr. Villar)-Order MRI of the cervical spine at [facility] in [place] -Follow up with [facility] in one month Related to Spondylosis w/o myelopathy or radiculopathy, cervical region -Order MRI of the tico mbar spine at [facility] in [place] -Order stationary neutral A/P and lateral views x rays at [facility] in [place]-Order lateral flexion vs extension x ray of the lumbar spine at [facility] in [place] Related to Low back pain, unspecified -Schedule [...] and heat-Discuss stellate ganglion nerve block with assistant chief train dispatcher, schedule when able -Follow up with [facility] [...] for above diagnosis, no changes Related to skilled nursing (current) use of opiate analgesic Same plan [...] gangling nerve block if patient clears with assistant chief train dispatcher to hold off Plavix- Refill and continue [...] gangling nerve block if patient clears with assistant chief train dispatcher to hold off Plavix-Refill and continue Percocet [...] Block if able to after discussion with assistant chief train dispatcher The risks and benefits of the procedure [...] 4mg 2x/day - call to schedule with assistant chief train dispatcher to discuss about temporary holding Plavix for [...] right stellate ganglion block- Follow up with assistant chief train dispatcher to discuss Plavix hold- Continue physical therapy [...] Pain in right shoulder - Request records fr om [facility] Dr. Cochran Related to Cardiac, heart or [...] changes Related to Radiculopathy, cervical region - Refill and continu e Percocet 7.5-325mg, up to 3x/day- Continue Tizanidine 4mg 1x/day- Refill and continue Oxycontin 10mg 2x/day- Continue PT and BH per [facility]- Continue to follow up with your surgeon as recommended for shoulder pain. - Return to the clinic with [facility] in 4 weeks Related to Pain in right shoulder -Schedule neurostimu lation trial with implant team today. -Complete BH implant eval today- Toradol 60 mg IM today due to increased pain ( Right Buttock) The risks and benefits of the procedure will be reviewed with the physician on the day of the procedure. Related to Cervicalgia -Schedule neurostimu lation trial when able-Complete BH [...] 3x/day-Refill Tizanidine 4mg 1x/day-Refill O xycontin 10mg 2x/rxe-Fuvjrz-sh with surgeon-Return with [facility] in 4 weeks [...] between taking Clonazepam and taking other opioid [id number]-ff with Dr. Esposito at [facility]-Return with [facility] in 4 weeks Related to Cervicalgia -Keep MBB appt The r isks and benefits of the procedure will be reviewed with the physician on the day of the procedure. Related to Cervicalgia -JUAN CARLOS [place]-JUAN CARLOS for [facility]-Refill Butrans 10mcg/hr patch -Refill Percocet 7.5-325mg, up [...] be taking over medications. Sent referral to [facility], however, she has been unable to schedule until April 2024. At last visit sent referral to [facility] and [facility]. She reports she has an appointment on 05/24/2024 but is reaching out to other clinics for a sooner appointment if possible.Patient also had an appointment with [facility] on 03/03/2024. She states they want her records from [facility] before moving forward with taking over any medications. Informed patient that I will off of filling her buprenorphine today and advised her to call [facility] before 04/05/24 to have her buprenorphine refilled if she has not heard back from [facility] by then. Patient understood.Sent records to [facility] today.Patient reports that she received a shoulder injection on 02/02/[address] Snell at [facility]. She states today that she was told she needs a right shoulder replacement by [facility]. That will be in the future some [...] Mental Status Date Cognitive Assessment Orientation - [place] ed to time, place, person, situation. Patient Care Teams Name Effective Dates (start - stop) Status Members No Information
--- OUTSIDE RECORDS SUMMARY | 2024-11-23 13:58 | XMS_ITS | Clinical Summary ---
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) [facility] [place] New CPAP machine [...] 50 MG tabletIndications: Coronary artery disease involving sa[place] coronary artery of [place] heart without angina pectoris,Heart failure with preserved ejection fraction, unspecified HF chronicity (HCC),Type 2 diabetes mellitus with other circulatory complication, without long-term current use of insulin (HCC) Take 1 tablet (50 mg total) by mouth 1 (one) time each day 90 tablet 10/08/19 25 Active metoprolol succinate XL (TOPROL-XL) 50 MG 24 hr tabletIndications: Coronary artery disease involving [place] coronary artery of [place] heart without angina pectoris,Heart failure with preserved [...] 24 hr tabletIndications: Coronary artery disease involving [place] coronary artery of [place] heart without angina pectoris,Heart failure with preserved [...] 20 MG tabletIndications: Coronary artery disease involving [place] coronary artery of [place] heart without angina pectoris,Heart failure with preserved ejection fraction, unspecified HF chronicity (HCC),Moderate mixed hyperlipidemia not requiring statin therapy,History of coronary artery bypass graft x 2,Type 2 diabetes mellitus with other circulatory complication, without long-term current use of insulin ([facility]),Stage 3a chronic kidney disease ([facility]) Take 1 tablet (20 mg total) by [...] 10/08/2024 Assessment & Plan (10/08/2024 3:05 PM FLEET DIRECTOR): Psychological condition is worsening. Continue current treatment [...] Type Department Care Team Description 11/19/[address] [address] Nicolás Tyler MD Requesting cough medication 11/17/2024 3:30 PM CDT Lab [address] [address] 11/17/2024 2:20 PM CDT Office Visit [address] [address] Nicolás Tyler MD Medicare welcome visit (Primary Dx); Fatigue, unspecified type; Acute cough; History of coronary artery bypass graft x 2; Mild aortic stenosis by prior echocardiogram; Graves' disease; Type 2 diabetes mellitus with other circulatory complication, without long-term current use of insulin (HCC); Stage 3a chronic kidney disease (HCC); Coronary artery disease involving sa[place] coronary artery of [place] heart without angina pectoris; Moderate mixed hyperlipidemia [...] neoplasm of breast; Periodontal abscess 11/17/[address] [address] Nicolás Tyler MD Referral to be faxed 11/05/2024 1:40 PM CDT Consult [address] [address] Jose Lincoln MD Coronary artery disease involving sa[place] coronary artery of [place] heart without angina pectoris (Primary Dx); Heart [...] unspecified COPD type (HCC) 10/08/2024 4:15 PM FLEET DIRECTOR Lab [address] [address] Need for hepatitis C screening test; Moderate mixed hyperlipidemia not requiring statin therapy; Type 2 diabetes mellitus with other circulatory complication, without long-term current use of insulin (HCC); Flank pain 10/08/2024 2:20 PM FLEET DIRECTOR Office Visit [address] [address] Nicolás Tyler MD Coronary artery disease involving sa[place] coronary artery of sa[place] heart without angina pectoris (Primary Dx); Flank [...] from your doctor or pharmacy? Never 11/17/2024 [employer] Utilities Answer Date Recorded In the past 12 months has [facility] [employer], [employer], or water [employer] threatened to shut off services in your [...] How often do you attend chur or yarsani services? More than 4 times per year 11/17/2024 Do you belong to any clubs o r organizations such as congregational groups, unions, fraternal or athletic groups, or [...] Date Recorded PHQ-9 Total Score 6 11/17/2024 [facility] - Occupational Stress [...] time in the past 12 m [place], were you homeless or living in a mcc (including now)? No 11/17/2024 Interpersonal Safety Questionnaire [...] Description 01/26/2025 1:00 PM CDT Office Visit [address] [address] 02/17/2025 2:20 PM CDT Office Visit [address] [address] Nicolás Tyler MD [address] [facility] [address] [place] [address] 02/18/2025 1:20 PM CDT Office Visit [address] [address] Jose Lincoln MD [address] [place] [address] Health Maintenance Due Date Last Done Comments [...] MICROALBUMIN/CREATIN INE RATIO Routine 10/08/2024 4:29 PM FLEET DIRECTOR Type 2 diabetes mellitus with other circulatory complication, without long-term current use of insulin (HCC) LIPID PANEL Routine 10/08/2024 4:22 PM FLEET DIRECTOR Moderate mixed hyperlipidemia not requiring statin therapy HEPATITIS C ANTIBODY Routine 10/08/2024 4:22 PM FLEET DIRECTOR Need for hepatitis C screening test ESTIMATED GLOMERULAR FILTRATION RATE (EGFR) Routine 10/08/2024 3:39 PM FLEET DIRECTOR Stage 3a chronic kidney disease (HCC) CBC BRANCH OFFICE W/DIFF Routine 10/08/2024 3:39 PM FLEET DIRECTOR BASIC METABOLIC PANEL Routine 10/08/2024 3:39 PM FLEET DIRECTOR Stage 3a chronic kidney disease (HCC) TSH Routine 10/08/2024 3:39 PM FLEET DIRECTOR Fatigue, unspecified type Graves' disease VITAMIN D, TOTAL Routine 10/08/2024 3:39 PM FLEET DIRECTOR Fatigue, unspecified type HEMOGLOBIN A1C Routine 10/08/2024 3:39 PM FLEET DIRECTOR Type 2 diabetes mellitus with other circulatory complication, without long-term current use of insulin (HCC) URINALYSIS WITH REFLEX MICROSCOPIC Routine 10/08/2024 3:20 PM FLEET DIRECTOR Flank pain ECG 12-LEAD Routine 10/08/2024 Coronary artery disease involving sa[place] coronary artery of sa[place] heart without angina pectoris Moderate mixed hyperlipidemia not requiring statin therapy Heart failure with preserved ejection fraction, unspecified HF chronicity (HCC) from Last 3 Months Results * (ABNORMAL) Manual Differential (after verif of auto) (11/17/2024 3:15 PM CDT) Manual Differential PERFORMED 11/18/2024 1:48 PM CDT [facility] Neutrophils % 59.0 % 11/18/2024 1:48 PM CDT [facility] Lymphocytes % 27.0 % 11/18/2024 1:48 PM [facility] Monocytes % 12.0 % 11/18/2024 1:48 PM [facility] Eosinophils % 0.00 % 11/18/2024 1:48 PM [facility] Basophils % 2.0 % 11/18/2024 1:48 PM [facility] Absolute Neutrophils 4.2 1.7 - 7.0 K/uL 11/18/2024 1:48 PM [facility] Lymphocytes Absolute 1.9 0.9 - 2.9 K/uL 11/18/2024 1:48 PM [facility] Monocytes Absolute 0.9 0.3 - 0.9 K/uL 11/18/2024 1:48 PM [facility] Eosinophils Absolute 0.0(L) 0.1 - 0.5 K/uL 11/18/2024 1:48 PM [facility] Basophils Absolute 0.1 0.0 - 0.1 K/uL 11/18/2024 1:48 PM [facility] Slide Review PERFORMED 11/18/2024 1:48 PM [facility] RBC Morphology NORMAL 11/18/2024 1:48 PM [facility] PLT Morphology ADEQUATE 11/18/2024 1:48 PM [facility] Total Counted 100 11/18/2024 1:48 PM [facility] 11/17/2024 3:15 PM CDT 11/18/2024 12:27 PM CDT us Nicolás Tyler MD LAB BLOOD ORDERABLES Final Result [facility] [address] [place] [address] * Vitamin D, Total ([facility] preferred) (11/17/2024 2:58 PM CDT) Only the most recent of2 resultswithin the time period is included. Pathologist [facility] Vitamin D, Total 46.5 ng/mL 11/19/19 1:29 PM CDT [facility] Comment: Deficient <20 Insufficient 20-<30 Sufficient 30-100 Vitamin D2/D3 fractionation is recommended at the discretion of the clinician if Total Vitamin D is within deficient or insufficient range. Blood (Blood, Venous) 11/17/2024 2:58 PM CDT 11/18/2024 12:27 PM CDT us Nicolás Tyler MD LAB BLOOD ORDERABLES Final Result [facility] [address] [place] [address] * CBC Branch Off w/Diff (11/17/2024 2:58 PM CDT) Only the most recent of2 resultswithin the time period is included. Pathologist [facility] WBC 7.1 3.5 - 10.5 K/uL 11/17/2024 [...] % 21.8 % 11/17/2024 3:35 PM CDT [facility] Mid-size Cells 17.1 % 11/17/2024 3:35 PM CDT [facility] Granulocytes/Edward trophils 61.1 % 11/17/2024 3:35 PM CDT [facility] Lymphocytes Absolute 1.5 0.9 - 2.9 K/uL 11/17/2024 3:35 PM CDT [facility] MIDS Absolute 1.2 0.4 - 1.5 K/uL 11/17/2024 3:35 PM CDT [facility] Granulocytes/Edward trophils Absolute 4.4 1.7 - 7.0 K/uL 11/17/2024 3:35 PM CDT [facility] 11/17/2024 2:58 PM CDT 11/17/2024 2:58 PM CDT Nicolás Tyler MD LAB BLOOD ORDERABLES Final Result [facility] [address] [place] [address] * TSH (11/17/2024 2:58 PM CDT) Only the most recent of2 resultswithin the time period is included. Pathologist [facility] TSH, Sensitive 2.12 0.46 - 4.68 mIU/L 11/18/2024 2:07 PM CDT [facility] Comment: The results from this [...] BLOOD ORDERABLES Final Result Performing Organization Address City/[facility]/ZIP Co de Phone Number [facility] [address] [place] [phone] * (ABNORMAL) Hemoglobin A1c (11/17/2024 2:58 PM CDT) Only the most recent of2 resultswithin the time period is included. Hemoglobin A1C 7.8(H) 4.0 - 5.6 % A1C 11/18/2024 1:10 PM CDT [facility] Comment: Reference Range 4.0-5.6% is [...] BLOOD ORDERABLES Final Result Performing Organization Address [facility] Co de Phone Number [facility] [address] [place] [address] * Flu, Rogers ID Now, PCR (11/17/2024 2:41 PM CDT) Flu Source Nasal 11/17/2024 3:34 PM CDT [facility] [facility] Influenza A, PCR NEGATIVE Negative 11/17/2024 3:34 PM CDT [facility] Influenza B, PCR NEGATIVE Negative 11/17/2024 3:34 PM CDT [facility] Flu Interp see below 11/17/2024 3:34 PM CDT [facility] Comment: Flu A Viral RNA Not Detected; Flu B Viral RNA Not Detected. Testing was performed using the Rogers ID NOW A & B 2 Assay. Swab 11/17/2024 2:41 PM CDT 11/17/2024 3:33 PM CDT Nicolás Tyler MD LAB MOLECULAR DIAGNOSTICS O RDERABLES Final Result Performing Organization Address [facility] Co de Phone Number [facility] [place] [place] [address] [place] [address] * Covid-19, Rogers ID Now, PCR (11/17/2024 2:41 PM CDT) Covid Source Nasal 11/17/2024 3:34 PM CDT [facility] Covid-19, ID Now PCR NEGATIVE Negative 11/17/2024 3:34 PM CDT [facility] Comment: Negative results should be [...] O MILLA Final Result Performing Organization Address [facility] de Phone Number [facility] [address] [place] [address] * Microalbumin/Creatinine Ratio (10/08/2024 4:29 PM FLEET DIRECTOR) Microalbumin,mg/ day 14.2 0.0 - 16.6 mg/L 10/09/2024 5:03 PM [facility] Creatinine, Urine 77 mg/dL 10/09/2024 5:03 PM FLEET DIRECTOR [facility] Comment: No established reference range. Microalb/Creat Ratio 18 0 - 24 mg/g 10/09/2024 5:03 PM [facility] Urine (Urine, Clean Catch) 10/08/2024 4:29 PM FLEET DIRECTOR 10/09/2024 12:35 PM FLEET DIRECTOR Nicolás Tyler MD LAB URINE ORDERABLES Final Result Performing Organization Address [facility] de Phone Number [facility] [address] [place] [address] * Hepatitis C antibody (10/08/2024 4:22 PM FLEET DIRECTOR) [facility] Hepatitis C Antibody NON-REACT FRANCIS Non-React francis 10/09/2024 11:05 PM FLEET DIRECTOR [facility] Comment: The results from this [...] testing. Blood (Blood, Venous) 10/08/2024 4:22 PM FLEET DIRECTOR 10/09/2024 12:30 PM FLEET DIRECTOR Nicolás Tyler MD LAB BLOOD ORDERABLES Final Result Performing Organization Address [facility] de Phone Number [facility] [address] [place] [address] * (ABNORMAL) Lipid panel (non-fasting) (10/08/2024 4:22 PM FLEET DIRECTOR) [facility] Cholesterol 206(H) 0 - 199 mg/dL 10/09/2024 3:42 PM FLEET DIRECTOR [facility] Comment: Recommended by National Cholesterol Education Program (ATP III) -------- Cholesterol Ranges -------- <200 Desirable 200-239 Borderline high >=240 High Triglycerides 202(H) 0 - 149 mg/dL 10/09/2024 3:42 PM FLEET DIRECTOR [facility] Comment: -------- TRIG Ranges -------- <150 Normal 150-199 Borderline high 200-499 High >=500 Very high HDL 79 40 - 250 mg/dL 10/09/2024 3:42 PM FLEET DIRECTOR [facility] Comment: -------- HDL Ranges -------- <40 Low 40-59 Normal >=60 Optimal LDL Calculated 87 0 - 99 mg/dL 10/09/2024 3:42 PM FLEET DIRECTOR [facility] Comment: -------- LDL Ranges -------- <100 Optimal 100-129 Near optimal/above optimal 130-159 Borderline high 160-189 High >=190 Very high Fasting? No 10/08/2024 4:22 PM FLEET DIRECTOR [facility] Blood (Blood, Venous) 10/08/2024 4:22 PM FLEET DIRECTOR 10/09/2024 12:37 PM FLEET DIRECTOR Nicolás Tyler MD LAB BLOOD ORDERABLES Final Result Performing Organization Address [facility] de Phone Number [facility] [address] [place] [address] * Estimated Glomerular Filtration Rate (eGFR) (10/08/2024 3:39 PM FLEET DIRECTOR) Pathologist [facility] Estimated Glomerular Filtration Rate (eGFR) >60 10/08/2024 4:05 PM FLEET DIRECTOR [facility] Comment: GFR calculated from serum creatinine value Chronic Kidney Disease less than 60 mL/min/1.73 m2 Kidney Failure less than 15 mL/min/1.73 m2 Note: effective 08/22/2022: 2020 CKD-EPI Equation used 10/08/2024 3:39 PM FLEET DIRECTOR 10/08/2024 3:39 PM FLEET DIRECTOR Nicolás Tyler MD LAB BLOOD ORDERABLES Final Result Performing Organization Address [facility] Co de Phone Number [facility] [address] [place] [address] * (ABNORMAL) Basic metabolic panel (10/08/2024 3:39 PM FLEET DIRECTOR) Sodium 139 135 - 145 mmol/L 10/08/2024 4:05 PM [facility] [place] Potassium 5.0 3.5 - 5.1 mmol/L 10/08/2024 4:05 PM FLEET DIRECTOR [facility] [place] [facility] Chloride 99 98 - 107 mmol/L 10/08/2024 4:05 PM [facility] [place] CO2 29 22 - 29 mmol/L 10/08/2024 4:05 PM [facility] [place] [facility] Creatinine 0.6 0.4 - 1.2 mg/dL 10/08/2024 4:05 PM [facility] [place] BUN 12 5 - 25 mg/dL 10/08/2024 4:05 PM [facility] [place] [facility] Glucose 224(H) 70 - 100 mg/dL 10/08/2024 4:05 PM [facility] [place] Calcium, Total,S 9.5 8.4 - 10.2 mg/dL 10/08/2024 4:05 PM [facility] [place] Anion Gap 11 4 - 13 10/08/2024 4:05 PM [facility] [place] Comment: The anion gap is calculated with the following formula: AGAP = Na ? (Cl + CO2). Fasting? Yes 10/08/2024 3:40 PM [facility] [place] Blood (Blood, Venous) 10/08/2024 3:39 PM FLEET DIRECTOR 10/08/2024 3:39 PM FLEET DIRECTOR us Nicolás Tyler MD LAB BLOOD ORDERABLES Final Result [facility] [address] [place] [address] * Urinalysis with reflex microscopic (clinic staff collect during appt) (10/08/2024 3:20 PM FLEET DIRECTOR) Type CLEAN CATCH 10/08/2024 4:07 PM [facility] Color, Urine YELLOW YELLOW 10/08/2024 4:07 PM [facility] [place] Clarity, Urine CLEAR CLEAR 10/08/2024 4:07 PM [facility] [place] Glucose, Urine NEGATIVE NEGATIVE mg/dL 10/08/2024 4:07 PM [facility] [place] Bilirubin, Urine NEGATIVE NEGATIVE 10/08/2024 4:07 PM [facility] [place] Ketones, Urine NEGATIVE NEGATIVE mg/dL 10/08/2024 4:07 PM [facility] [place] Specific [place], Urine 1.020 1.000 ->=1.030 10/08/2024 4:07 PM FLEET DIRECTOR [facility] [place] Blood, Urine NEGATIVE NEGATIVE 10/08/2024 4:07 PM FLEET DIRECTOR [facility] [place] pH, Urine 5.5 5.0 - 7.0 10/08/2024 4:07 PM FLEET DIRECTOR [facility] [place] Protein, Urine NEGATIVE NEGATIVE-TRA CE mg/dL 10/08/2024 4:07 PM FLEET DIRECTOR [facility] [place] Urobilinogen, Urine 0.2 0.2 - 1.0 E.U./dL 10/08/2024 4:07 PM FLEET DIRECTOR [facility] [place] Nitrite, Urine NEGATIVE NEGATIVE 10/08/2024 4:07 PM FLEET DIRECTOR [facility] [place] Leukocytes, Urine NEGATIVE NEGATIVE 10/08/2024 4:07 PM [facility] [place] Urine (Urine, Clean Catch) 10/08/2024 3:20 PM FLEET DIRECTOR 10/08/2024 4:06 PM FLEET DIRECTOR us Nicolás Tyler MD LAB URINE ORDERABLES Final Result Performing Organization Address City/[facility]/ZIP Co de Phone Number [facility] [facility] [address] [place] [address] * ECG 12 lead (10/08/2024) us Nicolás Tyler MD ECG ORDERABLES Final Resul t Performing Organization Address City/[facility]/ZIP Co de Phone Number [facility] from Last 3 Months Insurance [employer] Care Teams Image Processing Engineer Relationship Specialty Start Date End Date Nicolás Tyler MD [address] [place] [address] PCP - General Family Medicine 10/08/24 Dr Esposito Consulting Physician 01/26/20 [facility] Pain Clinic [facility] Consulting Physician Neurology 01/26/20
[2024-11-23] MEDS: KETOROLAC 15 MG/ML inj IVP (14:24)
[2024-11-23] MEDS: IPRAT-ALBUT 0.5-2.5 MG/3 ML NEB 1 NEB IH ×4 (14:26→23:50)
[2024-11-23 14:45] LABS: Basophils Percent Auto 0.3 % (0.0-3.0); Eosinophils Percent Auto 0.1 % (0.0-7.0); Hematocrit 47.5 % (33.0-51.0); Hemoglobin* 15.5 gm/dL (12.0-16.0); Immature Granulocytes Pct Auto 2.6 %; Lymphocytes Percent Auto 17.5 % (20-44); Mean Corpuscular HGB Conc 33 gm/dL (32-36); Mean Corpuscular Hemoglobin 32 pg (26-34); Mean Corpuscular Volume 97 fL (80-100); Monocytes Percent Auto 6.3 % (0.0-11.0); Neutrophils Percent Auto 73.2 % (42.0-72.0); Platelet Count* 295 K/uL (140-440); RDW Coefficient of Variation % 12.3 % (11.5-15.5); White Blood Count* 15.28 K/uL (4.50-11.00)
[2024-11-23 14:47] LABS: Slide Review Reflex No
[2024-11-23 14:49] LABS: Chloride* 95 mmol/L (96-114); Potassium* 4.6 mmol/L (3.6-5.1); Sodium* 134 mmol/L (135-149)
[2024-11-23 14:52] LABS: Anion Gap 8 mEq/L (7-15); Blood Urea Nitrogen* 19 mg/dL (7-30); Calcium* 8.6 mg/dL (8.4-10.6); Carbon Dioxide* 31 mmol/L (20-32); Creatinine* 0.6 mg/dL (0.5-1.5); Est. Creatinine Clearance* 48.43; Estimated Glomerular Filt Rate 100 ml/min; Glucose* 206 mg/dL (60-115)
[2024-11-23 14:58] LABS: PCR FLU A Negative PCR FLU A (Negative); PCR FLU B Negative PCR FLU B (Negative); PCR RSV Negative PCR RSV (Negative); SARS PCR* Negative SARS-CoV-2 (Negative)
[2024-11-23 15:04] LABS: Lactate Sepsis w/Reflex* 1.7 mmol/L (0.5-1.9)
[2024-11-23 15:05] LABS: NT Pro B Type NatriureticPept* 240 pg/mL; Troponin I* < 0.01 ng/mL (0.01-0.04)
--- NOTE | 2024-11-23 15:08 | CRLHL7_ITS ---
For Patients: As a result of the Century Cures Act, medical imaging exams and procedure reports are released immediately into your electronic medical record. You may view this report before your referring provider. If you have questions, please contact your health care provider. Indication: CONCERNS FOR PNEUMONIA Technique: CT chest without IV contrast Comparison: None Findings: No thyroid nodules. No thoracic lymphadenopathy. The heart is normal in size. No pericardial effusion. Coronary artery calcifications likely postsurgical changes of CABG. Mild centrilobular emphysematous changes with upper lobe predominance. No focal airspace consolidation, pleural effusion, or pneumothorax. There are a few tiny sub 4 millimeter, sub pleural pulmonary nodules bilaterally, likely benign. No suspicious pulmonary nodules or masses. The airways are clear. The imaged upper abdomen is unremarkable. The soft tissues are unremarkable. Postsurgical changes of median sternotomy and lower cervical ACDF with multilevel degenerative changes throughout the spine. Impression: 1. No CT evidence of an acute process involving the thorax. 2. Mild centrilobular emphysematous changes with upper lobe predominance. 3. There are a few tiny sub 4 millimeter, sub pleural pulmonary nodules bilaterally, likely benign. If patient is at high risk for developing lung malignancy consider repeat CT chest in 1 year; otherwise, no routine follow-up imaging is needed. Please note that all CT scans at this facility use dose modulation, iterative reconstruction, and/or weight-based dosing when appropriate to reduce radiation dose to as low as reasonably achievable. Dictated by Kory Wan MD @ 11/23/2024 3:38:16 PM (Electronically Signed)
[2024-11-23 15:23] LABS: D Dimer Quantitative* < 0.27 ug/ml (0.00-0.50)
[2024-11-23] MEDS: METHYLPREDNISOLONE SOD SUCC 62.5 MG/ML (125) 125 MG IVP (15:37)
[2024-11-23] MEDS: MORPHINE 4 MG/ML INJ IVP (15:42)
--- NOTE | 2024-11-23 17:02 | PM.IMHP1 ---
Assessment and Plan Assessment and plan (1) COPD (chronic obstructive pulmonary disease): Problem comment: - stable at this time with no evidence of exacerbation on admission Status: Acute (2) Hypoxic respiratory failure: Status: Acute (3) CAD (coronary artery disease): Problem comment: - last TTE 02/2022: Final Impressions: 1. Normal left ventricular size, normal wall thickness, normal global systolic function, calculated EF of 72 %. 2. Right ventricular cavity size is normal, global systolic RV function is normal. 3. The aortic valve is trileaflet and sclerotic, no stenosis and trivial regurgitation. 4. No other significant valve disease detected. Patient had an Angiogram at [facility] in 09/2021 that showed patent stents and grafts. Medical management was recommended. She had a normal follow-up exam with Cardiology in March of 2022 and is scheduled for a cardiology follow-up visit on 12/21/2022. Her coronary artery disease and congestive heart failure is addressed these cardiology appointments. Patient refused an outpatient stress testing she wants to talk to her technical solutions consultant 1st. She is under lot of stress right now with her mother in the dying process. Status: Acute (4) Chronic pain: Status: Acute (5) SOCORRO (obstructive sleep apnea): Problem comment: - uses CPAP at home. Status: Acute (6) Diabetes mellitus type 2 in obese: Problem comment: blood sugars likely to be come difficult to manage due to steroid therapy. Add Lantus and sliding scale insulin Status: Acute (7) Disorder of electrolytes: Problem comment: she is taking potassium 40 mEq today and her potassium is borderline high so will reduce that to 20 mEq daily. She has mild hyponatremia which is chronic and likely related to her chronic lung disease. Status: Acute Plan 64-year-old female with longstanding fairly severe COPD and concomitant heart disease with heart failure and coronary disease now admitted with what appears to be primarily a COPD exacerbation with associated hypercarbia. Notably has failed outpatient management for COPD exacerbation in the past week. Anticipate slow recovery from this episode with at least 3 days in the hospital. Will cautiously restart supplemental oxygen monitoring for CO2 retention. Total Time Spent Total Time Spent: Total time spent today is 75 minutes in review of outside records, coordination of care, discussion with patient and other providers about ongoing evaluation management of respiratory failure and COPD. Hospitalist- H&P: [facility] History of Present Illness Date Seen: 11/23/24 Chief complaint: Shortness of breath Narrative: Meg Monahan is a 64 year old female with history of COPD, coronary artery disease, heart failure with preserved ejection fraction, diabetes mellitus presents the hospital with an 8 day history of cough and dyspnea. Symptoms began approximately 8 days ago. She had cough at the start but then became more and more dyspneic. She has supplemental oxygen that she uses with her CPAP at night. She has begun to use it during the day because of her dyspnea. Cough is is prominent, dry nonproductive cough. She did have a low-grade fever. She did not have any known exposures. She does take care of her grandchildren occasionally however. she has had no chest pain or lower extremity edema. No significant upper respiratory symptoms. A week ago she went to the clinic in [place] where she was treated with a five-day course of prednisone and amoxicillin. She did not feel better after this treatment. She has a history of coronary disease and heart failure. She has had multiple coronary stents. This has been stable. She has had chest pain secondary to her severe cough. no exertional chest pain. She has a history of heart failure as well. She takes her torsemide p.r.n. for ankle edema. She thinks she takes it maybe once a month or twice a month. No recent problems suggestive of heart failure. She has longstanding COPD. She quit smoking about 20 years ago. She uses her inhalers regularly. This past week her nebulizers have helped but only briefly. Review of Systems Narrative: He reports generally doing well other than her respiratory symptoms outlined above. [facility] Medical History (Updated 11/23/24 @ 17:17 by Jamey Floyd MD) Diabetes mellitus type 2 in obese ?E11.69 - Type 2 diabetes mellitus with other specified complication (ICD-10) ?E66.9 - Obesity, unspecified (ICD-10) SOCORRO (obstructive sleep apnea) ?G47.33 - Obstructive sleep apnea (adult) (pediatric) (ICD-10) Noncompliance with medication regimen ?Z91.148 - Patient's other noncompliance with medication regimen for other reason (ICD-10) Acute on chronic respiratory failure with hypoxia and hypercapnia ?J96.21 - Acute and chronic respiratory failure with hypoxia (ICD-10) ?J96.22 - Acute and chronic respiratory failure with hypercapnia (ICD-10) Chronic narcotic use ?F11.90 - Opioid use, unspecified, uncomplicated (ICD-10) Hypokalemia ?E87.6 - Hypokalemia (ICD-10) Encephalopathy acute ?G93.40 - Encephalopathy, unspecified (ICD-10) Hyperkalemia ?E87.5 - Hyperkalemia (ICD-10) Hyponatremia ?E87.1 - Hypo-osmolality and hyponatremia (ICD-10) Coronary artery disease ?I25.10 - Atherosclerotic heart disease of [place] coronary artery without angina pectoris (ICD-10) Congestive heart failure ?I50.9 - Heart failure, unspecified (ICD-10) Respiratory failure ?J96.90 - Respiratory failure, unspecified, unspecified whether with hypoxia or hypercapnia (ICD-10) Acute hyponatremia ?E87.1 - Hypo-osmolality and hyponatremia (ICD-10) Congestive heart failure ?I50.9 - Heart failure, unspecified (ICD-10) Hypothyroidism ?E03.9 - Hypothyroidism, unspecified (ICD-10) Type 2 diabetes mellitus with circulatory disorder, without long-term current use of insulin ?E11.59 - Type 2 diabetes mellitus with other circulatory complications (ICD-10) Graves disease ?E05.00 - Thyrotoxicosis with diffuse goiter without thyrotoxic crisis or storm (ICD-10) CAD (coronary artery disease) ?I25.10 - Atherosclerotic heart disease of [place] coronary artery without angina pectoris (ICD-10) Recurrent major depression ?F33.9 - Major depressive disorder, recurrent, unspecified (ICD-10) History of nicotine dependence ?Z87.891 - Personal history of nicotine dependence (ICD-10) Chronic pain syndrome ?G89.4 - Chronic pain syndrome (ICD-10) Arthropathy of spinal facet joint ?M47.819 - Spondylosis without myelopathy or radiculopathy, site unspecified (ICD-10) Allergic rhinitis due to pollen ?J30.1 - Allergic rhinitis due to pollen (ICD-10) Insomnia ?G47.00 - Insomnia, unspecified (ICD-10) Hyperlipidemia ?E78.5 - Hyperlipidemia, unspecified (ICD-10) Lumbar spinal stenosis ?M48.061 - Spinal stenosis, lumbar region without neurogenic claudication (ICD-10) Opioid dependence ?F11.20 - Opioid dependence, uncomplicated (ICD-10) Refractory migraine ?G43.919 - Migraine, unspecified, intractable, without status migrainosus (ICD-10) Secondary polycythemia ?D75.1 - Secondary polycythemia (ICD-10) PTSD (post-traumatic stress disorder) ?F43.10 - Post-traumatic stress disorder, unspecified (ICD-10) Panic disorder ?F41.0 - Panic disorder [episodic paroxysmal anxiety] (ICD-10) Anxiety ?F41.9 - Anxiety disorder, unspecified (ICD-10) GERD (gastroesophageal reflux disease) ?K21.9 - Gastro-esophageal reflux disease without esophagitis (ICD-10) Chest pain ?R07.9 - Chest pain, unspecified (ICD-10) Edema ?R60.9 - Edema, unspecified (ICD-10) Acute on chronic heart failure with preserved ejection fraction ?I50.33 - Acute on chronic diastolic (congestive) heart failure (ICD-10) CO2 retention ?E87.2 - Acidosis (ICD-10) Cluster B personality disorder ?F60.89 - Other specific personality disorders (ICD-10) Leukocytosis ?D72.829 - Elevated white blood cell count, unspecified (ICD-10) Acute and chronic respiratory failure ([id number]-fswxnwd) ?J96.20 - Acute and chronic respiratory failure, unspecified whether with hypoxia or hypercapnia (ICD-10) COPD (chronic obstructive pulmonary disease) ?J44.9 - Chronic obstructive pulmonary disease, unspecified (ICD-10) Surgical History H/O heart artery stent ?Z95.5 - Presence of coronary angioplasty implant and graft (ICD-10) Failed CABG (coronary artery bypass graft) ?T82.218A - Other mechanical complication of coronary artery bypass graft, initial encounter (ICD-10) Social History (Updated 11/23/24 @ 17:10 by Jamey Floyd MD) Narrative: Patient lives alone in [place]. Former smoker , quit in 2003 or 2004. She does not drink alcohol. Her healthcare power of ip technology transactions attorney is her Son or his Mica last. Requests Full Code status. What is your current living situation?: I presently have a place to live Problems where you live: no known problems Problems where you live details: NA In the past 12 months, utilities in danger of being shut off: no In past 12 months, lack of transportation kept you from medical appts, meetings, work, or getting things needed for daily living: no In the past 12 mos, have been you worried that your food would run out before you had money to buy more?: never true In the past 12 mos, the food you bought just didn't last and you didn't have money to buy more?: never true Highest level of school completed/degree received: some college, no degree Smoking Status: Former smoker What tobacco products do you use: cigarettes Smoking quit date/years: >15 years ago Do you use any of these nicotine containing products: None Second hand tobacco smoke exposure: Yes How often do you have a drink containing alcohol: never How often do you have six or more drinks on one occasion: Never AUDIT-C Alcohol total score: 0 Non-prescribed substance use: denies use Caffeine: Yes How often does anyone, including family, friends and others, physically hurt you: never How often does anyone, including family, friends and others, insult or talk down to you: never How often does anyone, including family, friends and others, threaten you with harm: never How often does anyone, including family, friends and others, scream or curse at you: never service: No Meds Home Medications and Allergies Home Medications ?Medication ?Instructions ?Recorded ?Confirmed ?Type aspirin 81 mg chewable tablet 162 mg PO DAILY 03/02/22 11/23/24 History clopidogrel 75 mg tablet (Plavix) 75 mg PO DAILY 03/02/22 11/23/24 History ezetimibe 10 mg tablet (Zetia) 10 mg PO HS 03/02/22 11/23/24 History ipratropium 0.5 mg-albuterol 3 mg 3 ml inhalation Q6H PRN 03/02/22 11/23/24 History (2.5 mg base)/3 mL nebulization soln isosorbide mononitrate 60 mg 120 mg PO DAILY 03/02/22 11/23/24 History tablet,extended release 24 hr levothyroxine 50 mcg tablet 50 mcg PO DAILY 03/02/22 11/23/24 History (Synthroid) meclizine 25 mg tablet 25 mg PO TID PRN 03/02/22 11/23/24 History metoprolol succinate 50 mg 50 mg PO DAILY 03/02/22 11/23/24 History tablet,extended release 24 hr naloxone 4 mg/actuation nasal spray 4 mg intranasal Q2-3M PRN 03/02/22 11/23/24 History nitroglycerin 0.4 mg sublingual 0.4 mg sublingual Q5M PRN 03/02/22 11/23/24 History tablet (Nitrostat) ondansetron HCl 4 mg tablet 4 mg PO BID PRN 03/02/22 11/23/24 History rosuvastatin 20 mg tablet (Crestor) 20 mg PO HS 03/02/22 11/23/24 History sennosides 8.6 mg-docusate sodium 2 tab PO DAILY PRN 03/02/22 11/23/24 History 50 mg tablet albuterol sulfate 90 mcg/actuation 2 puff inhalation Q4H PRN 03/30/22 11/23/24 History aerosol inhaler cetirizine 10 mg tablet 10 mg PO DAILY PRN 10/22/23 11/23/24 History fluticasone fur. 100 mcg-umeclid 1 inh inhalation DAILY 10/22/23 11/23/24 History 62.5 mcg-vilant 25 mcg inhalat.powder (Trelegy Ellipta) methocarbamol 750 mg tablet 750 mg PO HS PRN 10/22/23 11/23/24 History omega 8-jtg-ukw-fish oil 1,000 mg 1 cap PO HS 10/22/23 11/23/24 History (120 mg-180 mg) capsule (Fish Oil) omeprazole 20 mg capsule,delayed 20 mg PO DAILY 10/22/23 11/23/24 History release topiramate 25 mg tablet (Topamax) 25 mg PO DAILY 10/22/23 11/23/24 History torsemide 20 mg tablet 20 mg PO DAILY PRN 10/22/23 11/23/24 History ascorbic acid (vitamin C) 500 mg 500 mg PO DAILY 11/23/24 11/23/24 History tablet calcium 600 mg (as 1 tab PO DAILY 11/23/24 11/23/24 History carbonate)-vitamin D3 20 mcg (800 unit) tablet (Caltrate with Vitamin D3) evolocumab 140 mg/mL subcutaneous 140 mg subcut Q14D 11/23/24 11/23/24 History pen injector (Repatha SureClick) glipizide 2.5 mg tablet, extended 2.5 mg PO DAILY 11/23/24 11/23/24 History release 24 hr hydrocodone 7.5 mg-acetaminophen 1 tab PO TID PRN 11/23/24 11/23/24 History 325 mg tablet lidocaine 5 % topical patch 1 patch topical Q24H PRN 11/23/24 11/23/24 History (Lidoderm) losartan 50 mg tablet 50 mg PO DAILY 11/23/24 11/23/24 History magnesium chloride 71.5 mg 143 mg PO DAILY 11/23/24 11/23/24 History (magnesium chloride) tablet,delayed release mirtazapine 15 mg tablet 15 mg PO QHS 11/23/24 11/23/24 History olanzapine 5 mg tablet 5 mg PO DAILY PRN 11/23/24 11/23/24 History paroxetine HCl 40 mg tablet 40 mg PO DAILY 11/23/24 11/23/24 History prazosin 1 mg capsule 2 mg PO HS 11/23/24 11/23/24 History Allergies Allergy/AdvReac Type Severity Reaction Status Date / Time sumatriptan Allergy Severe Anaphylaxis Verified 11/23/24 13:13 buspirone Allergy Intermediate Rash Verified 11/23/24 13:13 fentanyl Allergy Intermediate Verified 11/23/24 13:13 gabapentin Allergy Intermediate gi upset Verified 11/23/24 13:13 niacin Allergy Intermediate Verified 11/23/24 13:13 trazodone Allergy Intermediate Verified 11/23/24 13:13 atorvastatin Allergy Mild myalgia Verified 11/23/24 13:13 codeine Allergy Mild itching Verified 11/23/24 13:13 rizatriptan Allergy Mild Flushing Verified 11/23/24 13:13 Exam Narrative: Exam Narrative: she is alert and appears in no obvious distress breathing supplemental oxygen per nasal cannula. Eyes normal. Oropharynx with small airway. Upper dentures. Small airway. No mucosal abnormalities. Neck is supple out mass or adenopathy. No jugular venous distension. Respirations with diffusely diminished breath sounds, prolonged expiratory phase, Moderate expiratory wheezes and occasional crackles scattered throughout all lung palacio. cardiovascular: S1, S2, regular rate and rhythm. Abdomen: Bowel sounds active. Abdomen is soft without tenderness or mass. Extremities without edema. She has intact pedal pulses. No rash. Const: Vital Signs, click to edit/add: Vital Signs - 24 hr 11/23/24 13:07 11/23/24 13:32 11/23/24 14:32 Temperature 97.1 F L Pulse Rate 67 67 Pulse Rate [Pulse Oximeter] 78 Respiratory Rate 24 20 18 Blood Pressure 132/88 116/78 Blood Pressure [Ri ght Upper Arm] 178/84 H Pulse Oximetry 96 96 98 Oxygen Delivery Me thod Nasal Cannula Nasal Cannula Nasal Cannula Oxygen Flow Rate 2 3 3 11/23/24 15:02 11/23/24 15:21 11/23/24 15:28 Temperature Pulse Rate 68 Pulse Rate [Pulse Oximeter] Respiratory Rate 18 Blood Pressure 134/76 Blood Pressure [Ri ght Upper Arm] Pulse Oximetry 94 84 L 85 L Oxygen Delivery Me thod Nasal Cannula Nasal Cannula Oxygen Flow Rate 3 3 11/23/24 15:34 11/23/24 15:45 11/23/24 16:00 Temperature Pulse Rate 66 69 Pulse Rate [Pulse Oximeter] Respiratory Rate 18 18 18 Blood Pressure 113/44 L Blood Pressure [Ri ght Upper Arm] Pulse Oximetry 92 98 91 Oxygen Delivery Me thod Nasal Cannula Nasal Cannula Nasal Cannula Oxygen Flow Rate 3 3 3 Documenting provider has reviewed patient's vital signs: yes Hospitalist - H&P: Result Labs Labs: Short CBC 11/23/24 Range/Units 14:19 WBC 15.28 H (4.50-11.00) K/uL Hgb 15.5 (12.0-16.0) gm/dL Hct 47.5 (33.0-51.0) % Plt Count 295 (140-440) K/uL BMP 11/23/24 14:19 Sodium 134 L Potassium 4.6 Chloride 95 L Carbon Dioxide 31 BUN 19 Creatinine 0.6 Glucose 206 H Calcium 8.6 Cardiac Enzymes 11/23/24 Range/Units 14:19 Troponin I < 0.01 (0.01-0.04) ng/mL ECG Attestation: I personally reviewed and interpreted this ECG as follows: ( Normal sinus rhythm with a rate of 64. Poor R-wave progression across the precordium.) Imaging CT scan - chest: Radiologist's impression: Indication: CONCERNS FOR PNEUMONIA Technique: CT chest without IV contrast Comparison: None Findings: No thyroid nodules. No thoracic lymphadenopathy. The heart is normal in size. No pericardial effusion. Coronary artery calcifications likely postsurgical changes of CABG. Mild centrilobular emphysematous changes with upper lobe predominance. No focal airspace consolidation, pleural effusion, or pneumothorax. There are a few tiny sub 4 millimeter, sub pleural pulmonary nodules bilaterally, likely benign. No suspicious pulmonary nodules or masses. The airways are clear. The imaged upper abdomen is unremarkable. The soft tissues are unremarkable. Postsurgical changes of median sternotomy and lower cervical ACDF with multilevel degenerative changes throughout the spine. Impression: 1. No CT evidence of an acute process involving the thorax. 2. Mild centrilobular emphysematous changes with upper lobe predominance. 3. There are a few tiny sub 4 millimeter, sub pleural pulmonary nodules bilaterally, likely benign. If patient is at high risk for developing lung malignancy consider repeat CT chest in 1 year; otherwise, no routine follow-up imaging is needed.
[2024-11-23] MEDS: INSULIN ASPART 100 UNIT/ML SUBCUT ×2 (17:30→20:48)
[2024-11-23] MEDS: HYDROCODONE-ACETAMIN 5-325 MG 1 TAB PO ×2 (17:30→20:09)
[2024-11-23 18:28] LABS: Magnesium* 1.7 mg/dL (1.5-2.6)
[2024-11-23 18:37] LABS: HCO3 VBG 33 mmol/L (21-28); PCO2 VBG 58 mmHG (40-50); PO2 VBG 59.4 mmHG (25-47); pH VBG 7.364 (7.32-7.43)
[2024-11-23] MEDS: ALBUTEROL SULFATE 2.5 MG/3 ML VIAL.NEB NEB (19:43)
[2024-11-23] MEDS: ACETAMINOPHEN 500 MG TABLET 1000 MG PO (19:46)
[2024-11-23] MEDS: PARoxetine 20 MG TABLET 40 MG PO (20:38)
[2024-11-23] MEDS: DOXYCYCLINE HYCLATE 100 MG PO (20:39)
[2024-11-23] MEDS: ENOXAPARIN 40 MG/0.4 ML INJ SUBCUT (20:39)
[2024-11-23] MEDS: SODIUM CHLORIDE 0.9 % (FLUSH) 10 ML SYRINGE 5 ML IVF (20:40)
[2024-11-23] MEDS: ROSUVASTATIN CALCIUM 10 MG TABLET PO (20:40)
[2024-11-23] MEDS: MIRTAZAPINE 15 MG TABLET PO (20:41)
[2024-11-23] MEDS: PRAZOSIN HCL 1 MG CAPSULE 2 MG PO (20:42)
[2024-11-23] MEDS: OLANZapine 5 MG TAB.RAPDIS PO (22:04)
[2024-11-23] MEDS: guaiFENesin 100 MG/ML CUP PO (22:18)
[2024-11-24] VITALS (10 sets, daily range): BP systolic 108–157; BP diastolic 65–88; PULSE 75–99; RESP 16–24; TEMP 36.2–37.1; O2SAT 88–93
--- NOTE | 2024-11-24 06:28 | PC.NURSE ---
End of shift note [id number]: Pt A&Ox4 and able to make needs known. She is independent with transferring/ambulation in room. O2 1-2 LPM throughout the shift in order to maintain O2 sats per order. Pt has been afebrile. Tele in place with NSR noted. Pt c/o severe generalized pain last evening due to coughing and was given PRN medications for pain control. PRN and scheduled neb treatments given last kelsi, pt refused scheduled AM neb when approached. She is refusing to have daily weight obtained until she gets up. Croze Cutter Helper encouraged pt to put call light on when she is up next so that daily weight can be obtained. Pt tolerating regular diet with no N/V noted. Pt refusing gripper socks despite education. BG of 275 last evening. PRN Melatonin administered due to poor sleep last night. Call light within reach. ?
[2024-11-24 06:39] LABS: HCO3 VBG 34 mmol/L (21-28); PO2 VBG 40.3 mmHG (25-47); pH VBG 7.318 (7.32-7.43)
[2024-11-24 06:43] LABS: PCO2 VBG 66 mmHG (40-50)
[2024-11-24 06:44] LABS: Basophils Percent Auto 0.1 % (0.0-3.0); Hematocrit 46.7 % (33.0-51.0); Hemoglobin* 15.3 gm/dL (12.0-16.0); Immature Granulocytes Pct Auto 1.4 %; Mean Corpuscular HGB Conc 33 gm/dL (32-36); Mean Corpuscular Hemoglobin 31 pg (26-34); Mean Corpuscular Volume 95 fL (80-100); Monocytes Percent Auto 3.2 % (0.0-11.0); Neutrophils Percent Auto 88.3 % (42.0-72.0); Platelet Count* 276 K/uL (140-440); RDW Coefficient of Variation % 11.8 % (11.5-15.5); White Blood Count* 16.16 K/uL (4.50-11.00)
[2024-11-24 06:46] LABS: Slide Review Reflex No
[2024-11-24 06:58] LABS: Chloride* 95 mmol/L (96-114)
[2024-11-24 06:59] LABS: Potassium* 5.3 mmol/L (3.6-5.1); Sodium* 134 mmol/L (135-149)
[2024-11-24 07:02] LABS: Anion Gap 6 mEq/L (7-15); Blood Urea Nitrogen* 24 mg/dL (7-30); Calcium* 9.4 mg/dL (8.4-10.6); Carbon Dioxide* 33 mmol/L (20-32); Creatinine* 0.7 mg/dL (0.5-1.5); Est. Creatinine Clearance* 48.43; Estimated Glomerular Filt Rate 96 ml/min; Glucose* 254 mg/dL (60-115)
[2024-11-24] MEDS: TOPIRAMATE 50 MG TABLET 25 MG PO (09:31)
[2024-11-24] MEDS: ISOSORBIDE MONONITRATE ER 30 MG TAB 120 MG PO (09:32)
[2024-11-24] MEDS: POTASSIUM CHLORIDE 10 MEQ CAPSULE ER 20 MEQ PO (09:32)
[2024-11-24] MEDS: OMEPRAZOLE 20 MG CAPSULE DR PO (09:33)
[2024-11-24] MEDS: EZETIMIBE 10 MG TABLET PO (09:33)
[2024-11-24] MEDS: glipiZIDE XL 5 MG TAB PO (09:33)
[2024-11-24] MEDS: predniSONE 20 MG TABLET 60 MG PO (09:33)
[2024-11-24] MEDS: LOSARTAN POTASSIUM 50 MG TABLET PO (09:34)
[2024-11-24] MEDS: CLOPIDOGREL 75 MG TABLET PO (09:34)
[2024-11-24] MEDS: LEVOTHYROXINE 50 MCG TABLET PO (09:34)
[2024-11-24] MEDS: METOPROLOL SUCCINATE (XL) 50 MG TAB PO (09:34)
[2024-11-24] MEDS: ASPIRIN 81 MG TAB.CHEW PO (09:34)
[2024-11-24] MEDS: CETIRIZINE HCL 10 MG TABLET PO (09:34)
[2024-11-24] MEDS: DOXYCYCLINE HYCLATE 100 MG PO ×2 (09:35→21:25)
[2024-11-24] MEDS: SODIUM CHLORIDE 0.9 % (FLUSH) 10 ML SYRINGE 5 ML IVF ×2 (09:35→21:24)
[2024-11-24] MEDS: HYDROCODONE-ACETAMIN 5-325 MG 1 TAB PO ×2 (09:44→14:55)
[2024-11-24] MEDS: ALBUTEROL SULFATE 2.5 MG/3 ML VIAL.NEB NEB ×5 (10:14→19:48)
[2024-11-24 10:15] LABS: HCO3 VBG 34 mmol/L (21-28); pH VBG 7.356 (7.32-7.43)
[2024-11-24 10:17] LABS: PCO2 VBG 61 mmHG (40-50)
[2024-11-24] MEDS: METHYLPREDNISOLONE SOD SUCC 40 MG/ML IVP ×2 (10:31→18:12)
[2024-11-24 10:33] LABS: Potassium* 4.5 mmol/L (3.6-5.1)
--- NOTE | 2024-11-24 11:07 | RESP.RT ---
Pt seen this AM. On 2L NC, saturating well. Pt VBG shows slight acidiosis, did not wear CPAP last night. No increased WOB, not worried at this time about VBG. Pt with tight expiratory wheezing. Increasing neb frequeny to Q2 and increasing steroids. Will monitor, for increased aeration, and when Pt can be decreased back to Q4 scheduled nebs. Asked Pt to call family to bring in clean CPAP unit for night use.
--- NOTE | 2024-11-24 11:36 | P.IMPN_ITS ---
Assessment and Plan Assessment and plan (1) Acute and chronic respiratory failure with hypercapnia: Problem comment: Likely secondary to COPD exacerbation VBG shows mild respiratory acidosis with hypercapnia Will treat with DuoNebs, steroids and doxycycline Imaging is not showing any infiltrates or suggested infection Status: Acute (2) COPD exacerbation: Problem comment: As above Status: Acute (3) CAD (coronary artery disease): Problem comment: - last TTE 02/2022: Final Impressions: 1. Normal left ventricular size, normal wall thickness, normal global systolic function, calculated EF of 72 %. 2. Right ventricular cavity size is normal, global systolic RV function is normal. 3. The aortic valve is trileaflet and sclerotic, no stenosis and trivial regurgitation. 4. No other significant valve disease detected. Patient had an Angiogram at [facility] in 09/2021 that showed patent stents and grafts. Medical management was recommended. She had a normal follow-up exam with Cardiology in March of 2022 and is scheduled for a cardiology follow-up visit on 12/21/2022. Her coronary artery disease and congestive heart failure is addressed these cardiology appointments. Patient refused an outpatient stress testing she wants to talk to her solar process engineer 1st. She is under lot of stress right now with her mother in the dying process. Status: Acute (4) Chronic pain: Status: Chronic (5) SOCORRO (obstructive sleep apnea): Problem comment: - uses CPAP at home. Status: Acute (6) Diabetes mellitus type 2 in obese: Problem comment: blood sugars likely to be come difficult to manage due to steroid therapy. Add Lantus and sliding scale insulin Status: Acute (7) Disorder of electrolytes: Problem comment: she is taking potassium supplement daily. She has mild hyponatremia which is chronic and likely related to her chronic lung disease. Status: Acute Total Time Spent Total Time Spent: Today I spent 50 minutes seeing the patient, reviewing Expanse and EPIC notes/diagnostics, discussing the care plan with our care time that includes social work, PT/OT, pharmacy, RT, longterm and documenting my impressions and plan in the medical record. Subjective Date Seen: 11/24/24 Interval history: Pt seen and examined at bedside. Complaining of wheezing, chest tightness and SOB. on O2 1-2 L/min. Exam Narrative: Exam Narrative: Physical exam GENERAL: Mild increase in the work of breathing. on O2 1-2 L/min. HEAD AND NECK: Atraumatic, normocephalic CARDIOVASCULAR: RRR. Normal S1, S2. No murmurs. RESPIRATORY: Good air entry B/L. Positive wheezes diffusely. NEUROLOGY: Alert, awake. Normal speech. PSYCH: Anxious Const: Vital Signs, click to edit/add: Vital Signs - 24 hr 11/23/24 13:07 11/23/24 13:32 11/23/24 14:32 Temperature 97.1 F L Pulse Rate 67 67 Pulse Rate [Pulse Oximeter] 78 Pulse Rate [Right Radial] Respiratory Rate 24 20 18 Blood Pressure 132/88 116/78 Blood Pressure [Ri ght Arm] Blood Pressure [Ri ght Upper Arm] 178/84 H Pulse Oximetry 96 96 98 Oxygen Delivery Me thod Nasal Cannula Nasal Cannula Nasal Cannula Oxygen Flow Rate 2 3 3 11/23/24 15:02 11/23/24 15:21 11/23/24 15:28 Temperature Pulse Rate 68 Pulse Rate [Pulse Oximeter] Pulse Rate [Right Radial] Respiratory Rate 18 Blood Pressure 134/76 Blood Pressure [Ri ght Arm] Blood Pressure [Ri ght Upper Arm] Pulse Oximetry 94 84 L 85 L Oxygen Delivery Me thod Nasal Cannula Nasal Cannula Oxygen Flow Rate 3 3 11/23/24 15:34 11/23/24 15:45 11/23/24 16:00 Temperature Pulse Rate 66 69 Pulse Rate [Pulse Oximeter] Pulse Rate [Right Radial] Respiratory Rate 18 18 18 Blood Pressure 113/44 L Blood Pressure [Ri ght Arm] Blood Pressure [Ri ght Upper Arm] Pulse Oximetry 92 98 91 Oxygen Delivery Me thod Nasal Cannula Nasal Cannula Nasal Cannula Oxygen Flow Rate 3 3 3 11/23/24 17:14 11/23/24 18:00 11/23/24 19:38 Temperature 97.1 F L 97.9 F Pulse Rate Pulse Rate [Pulse Oximeter] Pulse Rate [Right Radial] 71 77 Respiratory Rate 22 22 22 Blood Pressure Blood Pressure [Ri ght Arm] 137/101 H 133/84 Blood Pressure [Ri ght Upper Arm] Pulse Oximetry 90 90 89 Oxygen Delivery Me thod Nasal Cannula Nasal Cannula Nasal Cannula Oxygen Flow Rate 2 2 1 11/23/24 22:25 11/23/24 22:25 11/23/24 22:27 Temperature 96.3 F L Pulse Rate 97 Pulse Rate [Pulse Oximeter] Pulse Rate [Right Radial] 92 Respiratory Rate 20 20 Blood Pressure Blood Pressure [Ri ght Arm] 114/79 Blood Pressure [Ri ght Upper Arm] Pulse Oximetry 89 89 Oxygen Delivery Me thod Nasal Cannula Nasal Cannula Oxygen Flow Rate 2 2 11/23/24 22:48 11/24/24 03:00 11/24/24 07:00 Temperature 97.9 F Pulse Rate Pulse Rate [Pulse Oximeter] Pulse Rate [Right Radial] 92 84 75 Respiratory Rate 20 18 16 Blood Pressure Blood Pressure [Ri ght Arm] 157/88 H Blood Pressure [Ri ght Upper Arm] Pulse Oximetry 88 Oxygen Delivery Me thod Nasal Cannula Oxygen Flow Rate 1.5 11/24/24 07:17 11/24/24 08:57 11/24/24 08:57 Temperature 97.1 F L Pulse Rate 77 Pulse Rate [Pulse Oximeter] Pulse Rate [Right Radial] 75 Respiratory Rate 16 Blood Pressure Blood Pressure [Ri ght Arm] 127/76 Blood Pressure [Ri ght Upper Arm] Pulse Oximetry 91 91 Oxygen Delivery Me thod Nasal Cannula Nasal Cannula Oxygen Flow Rate 1.5 1.5 Labs Labs: Laboratory Results - last 24 hr 11/23/24 11/23/24 11/23/24 14:10 14:19 17:18 WBC 15.28 H RBC 4.90 Hgb 15.5 Hct 47.5 MCV 97 MCH 32 MCHC 33 RDW Coeff of Renetta 12.3 Plt Count 295 Neut % (Auto) 73.2 H Lymph % (Auto) 17.5 L [place] % (Auto) 6.3 Eos % (Auto) 0.1 Baso % (Auto) 0.3 Neut # (Auto) 11.20 H Lymph # (Auto) 2.70 [place] # (Auto) 1.00 H Eos # (Auto) 0.00 Baso # (Auto) 0.00 Abs Immat Gran (auto) 0.40 H Imm/Tot Granulo (auto) 2.6 D-Dimer Quant (PE/DVT) < 0.27 VBG pH Cancelled VBG pCO2 Cancelled VBG pO2 Cancelled VBG HCO3 Cancelled Sodium 134 L Potassium 4.6 Chloride 95 L Carbon Dioxide 31 Anion Gap 8 BUN 19 Creatinine 0.6 Estimated Creat Clear 48.43 Estimated GFR 100 Glucose 206 H Lactate 1.7 Calcium 8.6 Magnesium 1.7 Troponin I < 0.01 NT-Pro-B Natriuret Pep 240 TSH 1.190 SARS-CoV-2 (PCR) Negative SARS-CoV-2 Influenza Type A (PCR) Negative PCR FLU A Influenza Type B (PCR) Negative PCR FLU B RSV (PCR) Negative PCR RSV Lab Acknowledgement Test Added 11/23/24 11/24/24 11/24/24 18:30 06:29 10:00 WBC 16.16 H RBC 4.90 Hgb 15.3 Hct 46.7 MCV 95 MCH 31 MCHC 33 RDW Coeff of Renetta 11.8 Plt Count 276 Neut % (Auto) 88.3 H Lymph % (Auto) 7.0 L [place] % (Auto) 3.2 Eos % (Auto) 0.0 Baso % (Auto) 0.1 Neut # (Auto) 14.30 H Lymph # (Auto) 1.10 [place] # (Auto) 0.50 Eos # (Auto) 0.00 Baso # (Auto) 0.00 Abs Immat Gran (auto) 0.20 Imm/Tot Granulo (auto) 1.4 D-Dimer Quant (PE/DVT) VBG pH 7.364 7.318 L 7.356 VBG pCO2 58 H 66 H* 61 H* VBG pO2 59.4 H 40.3 41.0 VBG HCO3 33 H 34 H 34 H Sodium 134 L Potassium 5.3 H 4.5 Chloride 95 L Carbon Dioxide 33 H Anion Gap 6 L BUN 24 Creatinine 0.7 Estimated Creat Clear 48.43 Estimated GFR 96 Glucose 254 H Lactate Calcium 9.4 Magnesium Troponin I NT-Pro-B Natriuret Pep TSH SARS-CoV-2 (PCR) Influenza Type A (PCR) Influenza Type B (PCR) RSV (PCR) Lab Acknowledgement
[2024-11-24] MEDS: IPRAT-ALBUT 0.5-2.5 MG/3 ML NEB 1 NEB IH ×3 (11:38→21:24)
[2024-11-24] MEDS: INSULIN ASPART 100 UNIT/ML SUBCUT ×3 (12:34→21:25)
[2024-11-24] MEDS: ACETAMINOPHEN 500 MG TABLET 1000 MG PO (12:37)
--- NOTE | 2024-11-24 15:48 | RESP.RT ---
Reevaluation of PT breath sounds at 1230 and now. They are much improved, increased aeration in all palacio. Pt sitting up in bed and glasses on watching TV, more engaged now. Plan to discountinue Q2 nebs at 1800 and change to Q4 schedeuled.
[2024-11-24] MEDS: OXYCODONE 5 MG TABLET PO ×2 (18:13→22:36)
[2024-11-24 18:58] LABS: HCO3 VBG 28 mmol/L (21-28); PCO2 VBG 50 mmHG (40-50); PO2 VBG 46.5 mmHG (25-47); pH VBG 7.366 (7.32-7.43)
[2024-11-24] MEDS: LORazepam 0.5 MG TABLET PO (19:29)
--- NOTE | 2024-11-24 19:38 | PC.NURSE ---
End of Shift: Patient pleasant and cooperative, A&O. VSS, afebrile. Patient has remained above 90% on 1.5L via NC, around 1800, pt required 2.5L O2, MD notified, see orders. Patient reports pain in her ribs ?from coughing,? she stated, as well as a headache this shift, managed with PRN medication, see MAR. Tolerating regular diet. Held 0730 insulin this shift per MD. Independent in room.
[2024-11-24] MEDS: PARoxetine 20 MG TABLET 40 MG PO (21:25)
[2024-11-24] MEDS: ENOXAPARIN 40 MG/0.4 ML INJ SUBCUT (21:25)
[2024-11-24] MEDS: ROSUVASTATIN CALCIUM 10 MG TABLET PO (21:26)
[2024-11-24] MEDS: MIRTAZAPINE 15 MG TABLET PO (21:27)
[2024-11-24] MEDS: PRAZOSIN HCL 1 MG CAPSULE 2 MG PO (21:29)
[2024-11-24] MEDS: INSULIN GLARGINE,HUM.REC.ANLOG 100 UNIT/ML INSULN.PEN 10 UNIT SUBCUT (21:30)
[2024-11-24] MEDS: MELATONIN 3 MG TABLET PO ×2 (22:36)
[2024-11-24] MEDS: SENNOSIDES/DOCUSATE TABLET 2 TAB PO (22:50)
[2024-11-25] VITALS (7 sets, daily range): BP systolic 128–145; BP diastolic 67–102; PULSE 64–89; RESP 16–26; TEMP 36.1–36.7; O2SAT 90–92
[2024-11-25] MEDS: OLANZapine 5 MG TAB.RAPDIS PO (01:11)
[2024-11-25] MEDS: IPRAT-ALBUT 0.5-2.5 MG/3 ML NEB 1 NEB IH ×5 (01:12→20:17)
[2024-11-25] MEDS: METHYLPREDNISOLONE SOD SUCC 40 MG/ML IVP ×3 (01:18→20:17)
[2024-11-25] MEDS: OXYCODONE 5 MG TABLET PO ×5 (02:28→20:38)
--- NOTE | 2024-11-25 05:58 | PC.NURSE ---
[id number]: Patient requiring 2.5 Lt O1 to maintain sats >88%. CPAP w/3 Lt O2 during noc. SOB w/exertion and conversing. Independently using Aerobika. Productive cough. Declines Robitussin because it tastes terrible and doesn't work. PRN Oxycodone administered for 7-8/10 pain from coughing. Independent in room. Denies N/V. Afebrile. Rested on and off during noc.
[2024-11-25 06:41] LABS: Hematocrit 40.5 % (33.0-51.0); Hemoglobin* 13.3 gm/dL (12.0-16.0); Mean Corpuscular HGB Conc 33 gm/dL (32-36); Mean Corpuscular Hemoglobin 32 pg (26-34); Mean Corpuscular Volume 96 fL (80-100); Platelet Count* 275 K/uL (140-440); Red Blood Count 4.22 m/uL (4.00-5.20)
[2024-11-25 06:44] LABS: HCO3 VBG 31 mmol/L (21-28); PCO2 VBG 56 mmHG (40-50); PO2 VBG 53.5 mmHG (25-47); pH VBG 7.346 (7.32-7.43)
[2024-11-25 07:13] LABS: Chloride* 97 mmol/L (96-114); Sodium* 133 mmol/L (135-149)
[2024-11-25 07:14] LABS: Potassium* 4.5 mmol/L (3.6-5.1)
[2024-11-25 07:16] LABS: Blood Urea Nitrogen* 24 mg/dL (7-30); Creatinine* 0.6 mg/dL (0.5-1.5); Est. Creatinine Clearance* 48.43; Estimated Glomerular Filt Rate 100 ml/min
[2024-11-25 07:17] LABS: Anion Gap 5 mEq/L (7-15); Calcium* 9.5 mg/dL (8.4-10.6); Carbon Dioxide* 31 mmol/L (20-32); Glucose* 294 mg/dL (60-115)
[2024-11-25 07:59] LABS: Slide Review Reflex Yes
[2024-11-25 08:01] LABS: Slide Review Acceptable Review (Acceptable)
[2024-11-25] MEDS: OMEPRAZOLE 20 MG CAPSULE DR PO (08:12)
[2024-11-25] MEDS: LEVOTHYROXINE 50 MCG TABLET PO (08:12)
[2024-11-25] MEDS: ASPIRIN 81 MG TAB.CHEW PO (09:12)
[2024-11-25] MEDS: EZETIMIBE 10 MG TABLET PO (09:13)
[2024-11-25] MEDS: CETIRIZINE HCL 10 MG TABLET PO (09:13)
[2024-11-25] MEDS: DOXYCYCLINE HYCLATE 100 MG PO ×2 (09:13→20:40)
[2024-11-25] MEDS: METOPROLOL SUCCINATE (XL) 50 MG TAB PO (09:13)
[2024-11-25] MEDS: ISOSORBIDE MONONITRATE ER 30 MG TAB 120 MG PO (09:14)
[2024-11-25] MEDS: CLOPIDOGREL 75 MG TABLET PO (09:14)
[2024-11-25] MEDS: POTASSIUM CHLORIDE 10 MEQ CAPSULE ER 20 MEQ PO (09:14)
[2024-11-25] MEDS: LOSARTAN POTASSIUM 50 MG TABLET PO (09:14)
[2024-11-25] MEDS: TOPIRAMATE 50 MG TABLET 25 MG PO (09:14)
[2024-11-25] MEDS: INSULIN ASPART 100 UNIT/ML SUBCUT ×3 (09:15→22:37)
[2024-11-25] MEDS: SODIUM CHLORIDE 0.9 % (FLUSH) 10 ML SYRINGE 5 ML IVF ×2 (09:15→20:41)
[2024-11-25] MEDS: INSULIN GLARGINE,HUM.REC.ANLOG 100 UNIT/ML INSULN.PEN 15 UNIT SUBCUT (09:16)
--- NOTE | 2024-11-25 09:53 | PM.IMPN1 ---
Assessment and Plan Assessment and plan (1) Acute and chronic respiratory failure with hypercapnia: Problem comment: Likely secondary to COPD exacerbation VBG showing no acidosis any more with this hypercapnia Continue to treat with DuoNebs, steroids and doxycycline Imaging is not showing any infiltrates or suggested infection Will deescalate steroid dosing as long as she is improving Status: Acute (2) COPD exacerbation: Problem comment: As above Status: Acute (3) CAD (coronary artery disease): Problem comment: - last TTE 02/2022: Final Impressions: 1. Normal left ventricular size, normal wall thickness, normal global systolic function, calculated EF of 72 %. 2. Right ventricular cavity size is normal, global systolic RV function is normal. 3. The aortic valve is trileaflet and sclerotic, no stenosis and trivial regurgitation. 4. No other significant valve disease detected. Patient had an Angiogram at [facility] in 09/2021 that showed patent stents and grafts. Medical management was recommended. She had a normal follow-up exam with Cardiology in March of 2022 and is scheduled for a cardiology follow-up visit on 12/21/2022. Her coronary artery disease and congestive heart failure is addressed these cardiology appointments. Patient refused an outpatient stress testing she wants to talk to her source water protection specialist 1st. She is under lot of stress right now with her mother in the dying process. Status: Acute (4) Chronic pain: Status: Chronic (5) SOCORRO (obstructive sleep apnea): Problem comment: - uses CPAP at home. Status: Acute (6) Diabetes mellitus type 2 in obese: Problem comment: blood sugars likely to be come difficult to manage due to steroid therapy. Add Lantus and sliding scale insulin Status: Acute (7) Disorder of electrolytes: Problem comment: she is taking potassium supplement daily. She has mild hyponatremia which is chronic and likely related to her chronic lung disease. Status: Acute Total Time Spent Total Time Spent: Today I spent 50 minutes seeing the patient, reviewing Expanse and EPIC notes/diagnostics, discussing the care plan with our care time that includes social work, PT/OT, pharmacy, RT, fci and documenting my impressions and plan in the medical record. Subjective Date Seen: 11/25/24 Interval history: Pt seen and examined at bedside. She states she has improved a lot overnight with the steroids we have been giving. Wheezing decreased a lot. Exam Narrative: Exam Narrative: GENERAL: No acute distress. on O2 1-2 L/min. HEAD AND NECK: Atraumatic, normocephalic CARDIOVASCULAR: RRR. Normal S1, S2. No murmurs. RESPIRATORY: Good air entry B/L. Very mild wheezing NEUROLOGY: Alert, awake. Normal speech. PSYCH: Normal affect Const: Vital Signs, click to edit/add: Vital Signs - 24 hr 11/24/24 12:29 11/24/24 15:00 11/24/24 15:00 Temperature 97.6 F 97.5 F L Pulse Rate Pulse Rate [Pulse Oximeter] 94 86 86 Respiratory Rate 20 20 20 Blood Pressure [Ri ght Arm] 112/75 108/65 Pulse Oximetry 93 91 Oxygen Delivery Me thod Room Air Nasal Cannula Oxygen Flow Rate 1.5 1.5 11/24/24 15:00 11/24/24 15:23 11/24/24 19:24 Temperature 97.9 F Pulse Rate 85 Pulse Rate [Pulse Oximeter] 91 Respiratory Rate 20 Blood Pressure [Ri ght Arm] 144/80 H Pulse Oximetry 91 90 Oxygen Delivery Me thod Nasal Cannula Nasal Cannula Oxygen Flow Rate 1.5 2.5 11/24/24 22:41 11/24/24 23:00 11/24/24 23:00 Temperature 98.8 F Pulse Rate 96 Pulse Rate [Pulse Oximeter] 99 Respiratory Rate 24 24 Blood Pressure [Ri ght Arm] 142/76 H Pulse Oximetry 90 90 Oxygen Delivery Me thod Nasal Cannula Nasal Cannula Oxygen Flow Rate 2.5 2.5 11/25/24 01:21 11/25/24 07:00 11/25/24 07:00 Temperature 97.5 F L 98.1 F Pulse Rate Pulse Rate [Pulse Oximeter] 89 71 Respiratory Rate 22 16 Blood Pressure [Ri ght Arm] 134/67 135/87 Pulse Oximetry 90 90 91 Oxygen Delivery Me thod Nasal Cannula CPAP CPAP Oxygen Flow Rate 2.5 3 3 Labs Labs: Laboratory Results - last 24 hr 11/24/24 11/24/24 11/25/24 10:00 18:45 06:17 WBC 26.40 H* RBC 4.22 Hgb 13.3 Hct 40.5 MCV 96 MCH 32 MCHC 33 Plt Count 275 Diff Slide Review Acceptable Review VBG pH 7.356 7.366 7.346 VBG pCO2 61 H* 50 56 H VBG pO2 41.0 46.5 53.5 H VBG HCO3 34 H 28 31 H Sodium 133 L Potassium 4.5 4.5 Chloride 97 Carbon Dioxide 31 Anion Gap 5 L BUN 24 Creatinine 0.6 Estimated Creat Clear 48.43 Estimated GFR 100 Glucose 294 H Calcium 9.5
--- NOTE | 2024-11-25 17:59 | PC.NURSE ---
End of shift-- Pt pleasant, alert and oriented, but drowsy today. VSS and pt is afebrile. SPO2 maintained >90% on 2L per n.c. Chronic pain in back and neck appears well managed with Oxycodone every 4 hours as needed. Pt continues to rate pain 6-7 out of 10, but states improvement after Oxycodone. Expiratory wheezing noted throughout lung palacio. Pt continues to have an intermittent, non-productive cough. Telemetry shows NSR. She denied nausea and tolerated a regular diet without difficulty. She was up to the BR and chair and ambulated in hallway independently and tolerated it fair. Pt does become moderately SOB with exertion, but is able to recover within a couple minutes.
[2024-11-25] MEDS: PARoxetine 20 MG TABLET 40 MG PO (20:38)
[2024-11-25] MEDS: ROSUVASTATIN CALCIUM 10 MG TABLET PO (20:39)
[2024-11-25] MEDS: MIRTAZAPINE 15 MG TABLET PO (20:40)
[2024-11-25] MEDS: ENOXAPARIN 40 MG/0.4 ML INJ SUBCUT (20:40)
[2024-11-25] MEDS: PRAZOSIN HCL 1 MG CAPSULE 2 MG PO (20:42)
[2024-11-25] MEDS: LORazepam 0.5 MG TABLET PO (22:37)
[2024-11-26] VITALS (7 sets, daily range): BP systolic 123–159; BP diastolic 60–127; PULSE 61–83; RESP 16–19; TEMP 36.7–37; O2SAT 88–92
--- NOTE | 2024-11-26 06:16 | PC.NURSE ---
End shift report [id number]: Alert and oriented x 4. Chronic pain to back and neck well managed with current regimen. Patient reporting SOB at 2215, O2 91% on 2L at that time but patient tachypneic at 26 resp. per minute with blue tinge to lips. Patient reports that she had just taken the oxygen off to go to the bathroom and placed it back on once back in bed. Scheduled duoneb administered and effective for SOB. respirations decreased to 22 and O2 92% on 2L. Lung sounds with expiratory wheezing that improves with nebulizer. Intermittent, coarse cough that patient reports as tight but feels that it is loosening up. At 2044 patient requesting lorazepam for sleep due to chronic insomnia issue and patient received a one time dose the night prior for sleep. Yanira Livingston notified, new order for 1 x dose of lorazepam and to notify patient that she needs to adhere to treatment plan including being up and awake with curtains open during the day and ambulating in hallway. If patient is non compliant with staying up and awake during day hours and minimizing sleep disturbances to sleep/wake cycle the MD will not continue sleep aid. Business Continuity Analyst educated patient on MD instructions and agreed to being up, awake and with curtains open during the day. Patient requested principal technical writer not wake patient for vitals or nebulizers, she will put call light on if she feels she needs one. Business Continuity Analyst checked q1.5-2 hours from [id number] and patient in bed with CPAP on, eyes closed and breathing even and unlabored with respirations 16-20 throughout the night. At 0555 patient declined 0530am duoneb.
[2024-11-26 06:30] LABS: HCO3 VBG 31 mmol/L (21-28); PCO2 VBG 57 mmHG (40-50); PO2 VBG 57.7 mmHG (25-47); pH VBG 7.346 (7.32-7.43)
[2024-11-26 06:45] LABS: Hematocrit 43.9 % (33.0-51.0); Hemoglobin* 14.4 gm/dL (12.0-16.0); Mean Corpuscular HGB Conc 33 gm/dL (32-36); Mean Corpuscular Hemoglobin 32 pg (26-34); Mean Corpuscular Volume 97 fL (80-100); Platelet Count* 301 K/uL (140-440); Red Blood Count 4.51 m/uL (4.00-5.20)
[2024-11-26 07:35] LABS: Chloride* 98 mmol/L (96-114); Potassium* 4.4 mmol/L (3.6-5.1); Sodium* 132 mmol/L (135-149)
[2024-11-26 07:38] LABS: Blood Urea Nitrogen* 24 mg/dL (7-30); Creatinine* 0.6 mg/dL (0.5-1.5); Est. Creatinine Clearance* 48.43; Estimated Glomerular Filt Rate 100 ml/min
[2024-11-26 07:39] LABS: Anion Gap 5 mEq/L (7-15); Calcium* 9.4 mg/dL (8.4-10.6); Carbon Dioxide* 29 mmol/L (20-32); Glucose* 168 mg/dL (60-115)
[2024-11-26 08:17] LABS: Slide Review Reflex Yes; White Blood Count* 29.19 K/uL (4.50-11.00)
[2024-11-26 08:28] LABS: Slide Review Acceptable Review (Acceptable)
[2024-11-26] MEDS: POTASSIUM CHLORIDE 10 MEQ CAPSULE ER 20 MEQ PO (09:29)
[2024-11-26] MEDS: ISOSORBIDE MONONITRATE ER 30 MG TAB 120 MG PO (09:29)
[2024-11-26] MEDS: CLOPIDOGREL 75 MG TABLET PO (09:32)
[2024-11-26] MEDS: DOXYCYCLINE HYCLATE 100 MG PO ×2 (09:32→22:18)
[2024-11-26] MEDS: CETIRIZINE HCL 10 MG TABLET PO (09:32)
[2024-11-26] MEDS: LOSARTAN POTASSIUM 50 MG TABLET PO (09:33)
[2024-11-26] MEDS: TOPIRAMATE 50 MG TABLET 25 MG PO (09:33)
[2024-11-26] MEDS: LEVOTHYROXINE 50 MCG TABLET PO (09:33)
[2024-11-26] MEDS: SODIUM CHLORIDE 0.9 % (FLUSH) 10 ML SYRINGE 5 ML IVF ×2 (09:34→22:43)
[2024-11-26] MEDS: ASPIRIN 81 MG TAB.CHEW PO (09:34)
[2024-11-26] MEDS: ONDANSETRON ODT 4 MG TAB PO (09:34)
[2024-11-26] MEDS: IPRAT-ALBUT 0.5-2.5 MG/3 ML NEB 1 NEB IH ×4 (09:34→21:56)
[2024-11-26] MEDS: METHYLPREDNISOLONE SOD SUCC 40 MG/ML IVP ×2 (09:35→22:28)
[2024-11-26] MEDS: OMEPRAZOLE 20 MG CAPSULE DR PO (09:35)
[2024-11-26] MEDS: EZETIMIBE 10 MG TABLET PO (09:36)
[2024-11-26] MEDS: METOPROLOL SUCCINATE (XL) 50 MG TAB PO (09:36)
[2024-11-26] MEDS: INSULIN ASPART 100 UNIT/ML SUBCUT ×4 (09:37→22:42)
[2024-11-26] MEDS: OXYCODONE 5 MG TABLET PO ×4 (09:37→22:20)
--- NOTE | 2024-11-26 14:56 | P.IMPN_ITS ---
Assessment and Plan Assessment and plan (1) Acute and chronic respiratory failure with hypercapnia: Problem comment: Likely secondary to COPD exacerbation VBG showing no acidosis any more with this hypercapnia Continue to treat with DuoNebs, steroids and doxycycline Imaging is not showing any infiltrates or suggested infection Will deescalate steroid dosing as long as she is improving Status: Acute (2) COPD exacerbation: Problem comment: As above Status: Acute (3) Leukocytosis: Problem comment: Likely 2/2 to steroids pt presented w leukocytosis because she was started on steroids prior to admission. Got worse when we increased her steroid dose monitor Status: Acute (4) CAD (coronary artery disease): Problem comment: - last TTE 02/2022: Final Impressions: 1. Normal left ventricular size, normal wall thickness, normal global systolic function, calculated EF of 72 %. 2. Right ventricular cavity size is normal, global systolic RV function is normal. 3. The aortic valve is trileaflet and sclerotic, no stenosis and trivial regurgitation. 4. No other significant valve disease detected. Patient had an Angiogram at [facility] in 09/2021 that showed patent stents and grafts. Medical management was recommended. She had a normal follow-up exam with Cardiology in March of 2022 and is scheduled for a cardiology follow-up visit on 12/21/2022. Her coronary artery disease and congestive heart failure is addressed these cardiology appointments. Patient refused an outpatient stress testing she wants to talk to her compliance manager 1st. She is under lot of stress right now with her mother in the dying process. Status: Acute (5) Chronic pain: Status: Chronic (6) SOCORRO (obstructive sleep apnea): Problem comment: - uses CPAP at home. Status: Acute (7) Diabetes mellitus type 2 in obese: Problem comment: blood sugars likely to be come difficult to manage due to steroid therapy. Add Lantus and sliding scale insulin Status: Acute (8) Disorder of electrolytes: Problem comment: she is taking potassium supplement daily. She has mild hyponatremia which is chronic and likely related to her chronic lung disease. Status: Acute Total Time Spent Total Time Spent: TODAY I SPENT 50 MINUTES SEEING THE PATIENT, REVIEWING EXPANSE AND EPIC NOTES/DIAGNOSTICS, DISCUSSING THE CARE PLAN WITH OUR CARE TIME THAT INCLUDES SOCIAL WORK, PT/OT, PHARMACY, RT, LONG-TERM AND DOCUMENTING MY IMPRESSIONS AND PLAN IN THE MEDICAL RECORD. Subjective Date Seen: 11/26/24 Interval history: Pt seen and examined at bed side, she states she feels better. Pt ambulated in the hallway on RA and was not SOB. Exam Narrative: Exam Narrative: PHYSICAL EXAM GENERAL: COMFORTABLE, NO ACUTE DISTRESS. HEAD AND NECK: ATRAUMATIC, NORMOCEPHALIC CARDIOVASCULAR: RRR. NORMAL S1, S2. NO MURMURS. RESPIRATORY: CLEAR TO AUSCULTATION B/L. GOOD AIR ENTRY B/L. +ve WHEEZEs. GASTROINTESTINAL: NOT DISTENDED, NOT TENDER TO PALPATION. NEUROLOGY: ALERT, AWAKE, ORIENTED X 3. NORMAL SPEECH. PSYCH: NORMAL MOOD, NORMAL AFFECT. Const: Vital Signs, click to edit/add: Vital Signs - 24 hr 11/25/24 15:00 11/25/24 15:00 11/25/24 15:00 Temperature 96.9 F L Pulse Rate 64 Pulse Rate [Pulse Oximeter] 66 Pulse Rate [Right Radial] Respiratory Rate 18 18 Blood Pressure [Ri ght Arm] 128/89 Pulse Oximetry 91 90 Oxygen Delivery Me thod Room Air Nasal Cannula Oxygen Flow Rate 2 11/25/24 15:00 11/25/24 19:00 11/25/24 23:00 Temperature 97.2 F L Pulse Rate 77 Pulse Rate [Pulse Oximeter] 66 80 Pulse Rate [Right Radial] 75 Respiratory Rate 18 26 H Blood Pressure [Ri ght Arm] 145/75 H Pulse Oximetry 90 Oxygen Delivery Me thod Nasal Cannula Oxygen Flow Rate 2 11/25/24 23:00 11/25/24 23:00 11/25/24 23:00 Temperature 97.1 F L Pulse Rate Pulse Rate [Pulse Oximeter] 80 83 Pulse Rate [Right Radial] Respiratory Rate 22 22 22 Blood Pressure [Ri ght Arm] 135/102 H Pulse Oximetry 92 92 Oxygen Delivery Me thod Nasal Cannula Nasal Cannula Oxygen Flow Rate 2 2 11/26/24 03:00 11/26/24 07:00 11/26/24 07:00 Temperature 98.2 F Pulse Rate 61 Pulse Rate [Pulse Oximeter] 72 Pulse Rate [Right Radial] Respiratory Rate 18 18 Blood Pressure [Ri ght Arm] 159/127 H Pulse Oximetry 90 Oxygen Delivery Me thod Room Air Oxygen Flow Rate 11/26/24 08:00 11/26/24 08:00 11/26/24 11:00 Temperature 98.1 F Pulse Rate Pulse Rate [Pulse Oximeter] 72 67 Pulse Rate [Right Radial] Respiratory Rate 18 18 16 Blood Pressure [Ri ght Arm] 135/72 Pulse Oximetry 90 92 Oxygen Delivery Me thod Room Air Room Air Oxygen Flow Rate Labs Labs: Laboratory Results - last 24 hr 11/26/24 06:00 WBC 29.19 H* RBC 4.51 Hgb 14.4 Hct 43.9 MCV 97 MCH 32 MCHC 33 Plt Count 301 Diff Slide Review Acceptable Review VBG pH 7.346 VBG pCO2 57 H VBG pO2 57.7 H VBG HCO3 31 H Sodium 132 L Potassium 4.4 Chloride 98 Carbon Dioxide 29 Anion Gap 5 L BUN 24 Creatinine 0.6 Estimated Creat Clear 48.43 Estimated GFR 100 Glucose 168 H Calcium 9.4
--- NOTE | 2024-11-26 14:59 | PC.NURSE ---
End of shift report: VS WNL. Afebrile. Rates pain a 8-5, pain meds offered and given with relief. O2 88-92 on RA. Ambulated ervin this shift. Ind in room. Tolerating reg diet. SL in L AC.
[2024-11-26] MEDS: PRAZOSIN HCL 1 MG CAPSULE 2 MG PO (22:17)
[2024-11-26] MEDS: PARoxetine 20 MG TABLET 40 MG PO (22:19)
[2024-11-26] MEDS: OLANZapine 5 MG TAB.RAPDIS PO (22:21)
[2024-11-26] MEDS: MELATONIN 3 MG TABLET 6 MG PO (22:21)
[2024-11-26] MEDS: MIRTAZAPINE 15 MG TABLET PO (22:25)
[2024-11-26] MEDS: ROSUVASTATIN CALCIUM 10 MG TABLET PO (22:25)
[2024-11-26] MEDS: ENOXAPARIN 40 MG/0.4 ML INJ SUBCUT (22:27)
[2024-11-26] MEDS: INSULIN GLARGINE,HUM.REC.ANLOG 100 UNIT/ML INSULN.PEN 25 UNIT SUBCUT (22:43)
[2024-11-27 01:56] VITALS: PULSE 73
[2024-11-27] MEDS: OXYCODONE 5 MG TABLET PO ×2 (02:10→08:48)
[2024-11-27 02:13] VITALS: BP 119/68; PULSE 74; RESP 16; TEMP 36.8; O2SAT 89
[2024-11-27 06:40] LABS: Hematocrit 43.4 % (33.0-51.0); Hemoglobin* 14.1 gm/dL (12.0-16.0); Mean Corpuscular HGB Conc 33 gm/dL (32-36); Mean Corpuscular Hemoglobin 32 pg (26-34); Mean Corpuscular Volume 98 fL (80-100); Platelet Count* 277 K/uL (140-440); Red Blood Count 4.45 m/uL (4.00-5.20); White Blood Count* 19.18 K/uL (4.50-11.00)
[2024-11-27 06:41] LABS: Slide Review Reflex No
[2024-11-27 06:52] LABS: Chloride* 93 mmol/L (96-114)
[2024-11-27 06:53] LABS: Potassium* 4.4 mmol/L (3.6-5.1); Sodium* 130 mmol/L (135-149)
[2024-11-27 06:56] LABS: Anion Gap 4 mEq/L (7-15); Blood Urea Nitrogen* 27 mg/dL (7-30); Calcium* 9.4 mg/dL (8.4-10.6); Carbon Dioxide* 33 mmol/L (20-32); Creatinine* 0.7 mg/dL (0.5-1.5); Est. Creatinine Clearance* 48.43; Estimated Glomerular Filt Rate 96 ml/min; Glucose* 222 mg/dL (60-115)
[2024-11-27 07:00] VITALS: BP 138/78; PULSE 64; RESP 16; TEMP 36.6; O2SAT 92
[2024-11-27 07:18] VITALS: PULSE 57
--- NOTE | 2024-11-27 07:26 | PC.NURSE ---
Shift note ([id number]): Patient pleasant, alert and oriented. Ambulated independently in room. PRN oxycodone given for pain rated 7/10. O2 sats 88-90% on 1 LPM via NC. O2 sats dropped to 83% on 1 LPM via C-Pap. O2 increased to 2LPM at that time to keep sats 88-90%.?
[2024-11-27] MEDS: POTASSIUM CHLORIDE 10 MEQ CAPSULE ER 20 MEQ PO (08:45)
[2024-11-27] MEDS: SODIUM CHLORIDE 0.9 % (FLUSH) 10 ML SYRINGE 5 ML IVF (08:45)
[2024-11-27] MEDS: CLOPIDOGREL 75 MG TABLET PO (08:46)
[2024-11-27] MEDS: METOPROLOL SUCCINATE (XL) 50 MG TAB PO (08:46)
[2024-11-27] MEDS: LEVOTHYROXINE 50 MCG TABLET PO (08:46)
[2024-11-27] MEDS: CETIRIZINE HCL 10 MG TABLET PO (08:46)
[2024-11-27] MEDS: DOXYCYCLINE HYCLATE 100 MG PO (08:46)
[2024-11-27] MEDS: ASPIRIN 81 MG TAB.CHEW PO (08:47)
[2024-11-27] MEDS: OMEPRAZOLE 20 MG CAPSULE DR PO (08:47)
[2024-11-27] MEDS: ISOSORBIDE MONONITRATE ER 30 MG TAB 120 MG PO (08:47)
[2024-11-27] MEDS: LOSARTAN POTASSIUM 50 MG TABLET PO (08:47)
[2024-11-27] MEDS: TOPIRAMATE 50 MG TABLET 25 MG PO (08:47)
[2024-11-27] MEDS: EZETIMIBE 10 MG TABLET PO (08:47)
[2024-11-27] MEDS: IPRAT-ALBUT 0.5-2.5 MG/3 ML NEB 1 NEB IH (08:48)
[2024-11-27] MEDS: INSULIN ASPART 100 UNIT/ML SUBCUT ×2 (09:56→12:28)
[2024-11-27 11:00] VITALS: BP 103/57; PULSE 75; RESP 18; TEMP 36.6; O2SAT 88
--- NOTE | 2024-11-27 11:12 | PM.DS1 ---
DS: Providers Provider Date Seen: 11/27/24 Date of admission: 11/23/24 16:53 Primary care physician: Not a Local Provider Admitting Clinician: Jamey Floyd MD Consults: 11/23/24 16:55 Consult to Respiratory Therapy [CONS] Routine Comment: Reason(s) for RT Consult:: Consult Attending Physician on discharge: Leanne Kim MD DS: Diagnosis Discharge Diagnosis (1) Acute and chronic respiratory failure with hypercapnia: Status: Acute Problem details: Likely secondary to COPD exacerbation VBG showing no acidosis any more with this hypercapnia Continue to treat with DuoNebs, steroids and doxycycline Imaging is not showing any infiltrates or suggested infection Will deescalate steroid dosing as long as she is improving (2) COPD exacerbation: Status: Acute Problem details: As above (3) Leukocytosis: Status: Acute Problem details: Likely 2/2 to steroids pt presented w leukocytosis because she was started on steroids prior to admission. Got worse when we increased her steroid dose monitor (4) CAD (coronary artery disease): Status: Acute Problem details: - last TTE 02/2022: Final Impressions: 1. Normal left ventricular size, normal wall thickness, normal global systolic function, calculated EF of 72 %. 2. Right ventricular cavity size is normal, global systolic RV function is normal. 3. The aortic valve is trileaflet and sclerotic, no stenosis and trivial regurgitation. 4. No other significant valve disease detected. Patient had an Angiogram at [facility] in 09/2021 that showed patent stents and grafts. Medical management was recommended. She had a normal follow-up exam with Cardiology in March of 2022 and is scheduled for a cardiology follow-up visit on 12/21/2022. Her coronary artery disease and congestive heart failure is addressed these cardiology appointments. 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 She is under lot of stress right now with her mother in the dying process. (5) Chronic pain: Status: Chronic (6) SOCORRO (obstructive sleep apnea): Status: Acute Problem details: - uses CPAP at home. (7) Diabetes mellitus type 2 in obese: Status: Acute Problem details: blood sugars likely to be come difficult to manage due to steroid therapy. Add Lantus and sliding scale insulin (8) Disorder of electrolytes: Status: Acute Problem details: she is taking potassium supplement daily. She has mild hyponatremia which is chronic and likely related to her chronic lung disease. DS: Summary Hospital Course Hospital Course: Pt admitted d/t SOB likely secondary to COPD exacerbation w/ VBG showing hypercapnia. Pt improved with DuoNebs, steroids and doxycycline Imaging done and did not showing any infiltrates or suggested infection. Pt needs to f/up w/ pcp. Status at Discharge Functional status at discharge: independent ambulation Overall status at discharge: patient is back to baseline Time Spent with Patient Time attestation: Total time spent providing and/or coordinating discharge services: Exam Narrative: Exam Narrative: Physical exam GENERAL: Comfortable, no acute distress. HEAD AND NECK: Atraumatic, normocephalic CARDIOVASCULAR: RRR. Normal S1, S2. No murmurs. RESPIRATORY: Clear to auscultation B/L. Good air entry B/L. No wheezes or rhonchi. NEUROLOGY: Alert, awake, oriented X 3. Normal speech. PSYCH: Normal mood, normal affect. Const: Vital Signs, click to edit/add: Vital Signs - 24 hr 11/26/24 15:00 11/26/24 15:00 11/26/24 15:00 Temperature 98.6 F Pulse Rate Pulse Rate [Pulse Oximeter] 75 75 Respiratory Rate 16 16 16 Blood Pressure [Ri ght Arm] 123/60 Pulse Oximetry 88 88 Oxygen Delivery Me thod Room Air Room Air Oxygen Flow Rate 11/26/24 15:00 11/26/24 19:00 11/26/24 23:00 Temperature 98.4 F Pulse Rate 83 Pulse Rate [Pulse Oximeter] 82 Respiratory Rate 19 19 Blood Pressure [Ri ght Arm] 139/79 Pulse Oximetry 90 90 Oxygen Delivery Me thod Room Air Room Air Oxygen Flow Rate 11/26/24 23:00 11/27/24 01:56 11/27/24 02:13 Temperature 98.3 F 98.2 F Pulse Rate 73 Pulse Rate [Pulse Oximeter] 74 Respiratory Rate 19 16 Blood Pressure [Ri ght Arm] 143/74 H 119/68 Pulse Oximetry 90 89 Oxygen Delivery Me thod Room Air BiPAP Oxygen Flow Rate 2 11/27/24 07:00 11/27/24 07:00 11/27/24 07:00 Temperature 97.8 F Pulse Rate Pulse Rate [Pulse Oximeter] 64 64 Respiratory Rate 16 16 16 Blood Pressure [Ri ght Arm] 138/78 Pulse Oximetry 92 92 Oxygen Delivery Me thod Room Air BiPAP Room Air BiPAP Oxygen Flow Rate 11/27/24 07:18 Temperature Pulse Rate 57 L Pulse Rate [Pulse Oximeter] Respiratory Rate Blood Pressure [Ri t Arm] Pulse Oximetry Oxygen Delivery Me thod Oxygen Flow Rate DS: Data Data Completed and Pending Completed studies during hospitalization: Procedures Assistance with Respiratory Ventilation, 24-96 Consecutive Hours, Continuous Positive Airway Pressure (03/29/22) Introduction of Other Gas into Respiratory Tract, Via Natural or Artificial Opening (03/02/22) Introduction of Other Therapeutic Substance into Respiratory Tract, Via Natural or Artificial Opening (10/22/23) Labs on day of discharge: Labs from last 24 hours 11/27/24 06:23 WBC 19.18 H RBC 4.45 Hgb 14.1 Hct 43.4 MCV 98 MCH 32 MCHC 33 Plt Count 277 Sodium 130 L Potassium 4.4 Chloride 93 L Carbon Dioxide 33 H Anion Gap 4 L BUN 27 Creatinine 0.7 Estimated Creat Clear 48.43 Estimated GFR 96 Glucose 222 H Calcium 9.4 Preliminary micro results at discharge 11/23/24 15:30 Blood Culture - Preliminary Blood NO GROWTH AFTER 72 HOURS 11/23/24 14:19 Blood Culture - Preliminary Blood NO GROWTH AFTER 72 HOURS Discharge Plan Discharge Disposition: Home, Self-Care Date of Admission: 11/23/24 16:53 Attending Provider on Discharge: Leanne Kim Primary Care Provider: Provider,Not a Local Condition: Stable Anticipated Discharge Date/Time: 11/27/24 10:58 Discharge Medications: New ipratropium-albuterol 0.5 mg-3 mg(2.5 mg base)/3 mL Solution For Nebulization 3 ml inhalation Q6H PRN (Reason: Dyspnea) 30 Days Qty: 120 0RF doxycycline hyclate 100 mg Tablet 100 mg PO BID 3 Days Qty: 6 0RF prednisone 20 mg tablet 40 mg PO DAILY 2 Days Qty: 4 0RF Continued ipratropium-albuterol 0.5 mg-3 mg(2.5 mg base)/3 mL solution for nebulization 3 ml inhalation Q6H PRN aspirin 81 mg tablet,chewable 162 mg PO DAILY naloxone 4 mg/actuation spray,non-aerosol 4 mg intranasal Q2-3M PRN Rx Instructions: spray 1 dose into ONE nostril; alternate nostrils w each dose until help arrives sennosides-docusate sodium 8.6-50 mg tablet 2 tab PO DAILY PRN levothyroxine [Synthroid] 50 mcg tablet 50 mcg PO DAILY rosuvastatin [Crestor] 20 mg tablet 20 mg PO HS clopidogrel [Plavix] 75 mg tablet 75 mg PO DAILY nitroglycerin [Nitrostat] 0.4 mg tablet, sublingual 0.4 mg sublingual Q5M PRN Rx Instructions: do not exceed 3 doses per episode ezetimibe [Zetia] 10 mg tablet 10 mg PO HS isosorbide mononitrate 60 mg tablet extended release 24 hr 120 mg PO DAILY meclizine 25 mg tablet 25 mg PO TID PRN metoprolol succinate 50 mg tablet extended release 24 hr 50 mg PO DAILY ondansetron HCl 4 mg tablet 4 mg PO BID PRN cetirizine 10 mg tablet 10 mg PO DAILY PRN methocarbamol 750 mg tablet 750 mg PO HS PRN Trelegy Ellipta 100-62.5-25 mcg blister with device 1 inh inhalation DAILY omega 0-hon-rky-fish oil [Fish Oil] 1,000 mg (120 mg-180 mg) capsule 1 cap PO HS omeprazole 20 mg capsule,delayed release(DR/EC) 20 mg PO DAILY topiramate [Topamax] 25 mg tablet 25 mg PO DAILY torsemide 20 mg tablet 20 mg PO DAILY PRN ascorbic acid (vitamin C) 500 mg tablet 500 mg PO DAILY calcium carbonate-vitamin D3 [Caltrate with Vitamin D3] 600 mg-20 mcg (800 unit) tablet 1 tab PO DAILY Repatha SureClick 140 mg/mL pen injector 140 mg subcut Q14D glipizide 2.5 mg tablet extended release 24hr 2.5 mg PO DAILY lidocaine [Lidoderm] 5 % adhesive patch,medicated 1 patch topical Q24H PRN Rx Instructions: leave on most painful area for up to 12 hrs losartan 50 mg tablet 50 mg PO DAILY magnesium chloride 71.5 mg tablet,delayed release (DR/EC) 143 mg PO DAILY mirtazapine 15 mg tablet 15 mg PO QHS olanzapine 5 mg tablet 5 mg PO DAILY PRN prazosin 1 mg capsule 2 mg PO HS paroxetine HCl 40 mg tablet 40 mg PO DAILY hydrocodone-acetaminophen 7.5-325 mg tablet 1 tab PO TID PRN albuterol sulfate 90 mcg/actuation HFA aerosol inhaler 2 puff INHALATION Q4H PRN potassium chloride 20 mEq tablet,ER particles/crystals 40 meq PO DAILY Qty: 60 0RF Discharge Orders: Discharge Order (Routine); Ordered 11/27/24 Ordered By: Leanne Kim Patient Education: Doxycycline (By mouth), Prednisone (By mouth), Ipratropium/Albuterol (By breathing), COPD (Chronic Obstructive Pulmonary Disease) (IP) Additional Instructions: You need to follow-up with your primary care physician within 1-2 weeks after discharge and repeat blood tests to follow-up on the elevated white blood cell count. You need to take your medications as prescribed Activity Level: Activity as Tolerated Discharge Diet: Diabetic and Heart Healthy (2 gm sodium, low fat) Follow Up Appointments: Moreno Dill MD [Staff Physician] - 12/04/24 2:05 pm Provider,Not a Local [Primary Care Provider] - Forms: [employer] Info Instructions
[2024-11-27] MEDS: predniSONE 20 MG TABLET 40 MG PO (11:16)
--- NOTE | 2024-11-27 13:18 | PC.NURSE ---
Discharge note: Pt discharged via wheelchair at 1301. Rates chronic back pain a 6, pain med offered and given with relief. On RA. Denies SOB. VS WNL. Afebrile. IV removed and tip intact. Belongings and discharge instructions gone through and signed.
== END 2024-11-27 13:01 | disposition home or self-care (01) | DRG 190 ==
LOC: ED 16:19 → MEDSURG 16:48
PROVIDERS: Family Medicine; Student in an Organized Health Care Education/Training Program; Admitting Provider Family Medicine; Emergency Provider Student in an Organized Health Care Education/Training Program; Visit Provider Family Medicine
DX: J44.1 Chronic obstructive pulmonary disease with (acute) exacerbation (principal); J96.01 Acute respiratory failure with hypoxia; J96.22 Acute and chronic respiratory failure with hypercapnia; I50.30 Unspecified diastolic (congestive) heart failure; Z87.891 Personal history of nicotine dependence; I25.10 Atherosclerotic heart disease of native coronary artery without angina pectoris; G89.29 Other chronic pain; G47.33 Obstructive sleep apnea (adult) (pediatric); Z99.89 Dependence on other enabling machines and devices; E11.8 Type 2 diabetes mellitus with unspecified complications; Z79.84 Long term (current) use of oral hypoglycemic drugs; Z79.82 Long term (current) use of aspirin; E87.8 Other disorders of electrolyte and fluid balance, not elsewhere classified; D72.829 Elevated white blood cell count, unspecified; Z68.31 Body mass index [BMI] 31.0-31.9, adult; E66.9 Obesity, unspecified; E03.9 Hypothyroidism, unspecified; E78.5 Hyperlipidemia, unspecified; R07.9 Chest pain, unspecified; Z99.81 Dependence on supplemental oxygen
CPT/HCPCS: 36415; 71250; 80048; 82803; 82962; 83605; 83735; 83880; 84132; 84443; 84484; 85025; 85027; 85379; 87040; 87631; 93005; 94640; 94761; 99284; 99285; A9270; J1650; J1815; J1885; J2270; J2919; J7512

== ENCOUNTER 2025-06-21 16:32 | Outpatient (CLI) | payer OTHER, SELFPAY ==
--- NOTE | 2025-06-21 16:45 | CRLHL7_ITS ---
For Patients: As a result of the Cures Act, medical imaging exams and procedure reports are released immediately into your electronic medical record. You may view this report before your referring provider. If you have questions, please contact your health care provider. INDICATION: Acute cough TECHNIQUE: Chest 2 views COMPARISON: 08/01/2024 FINDINGS: Postop changes to the lower cervical spine and mediastinum. Cardiac silhouette is upper limits of normal. No acute infiltrate or edema. No effusion. No fracture. IMPRESSION: No acute findings. Dictated by Ra Correia MD @ 06/22/2025 8:42:46 AM (Electronically Signed)
== END 2025-06-21 16:33 | disposition home or self-care (01) ==
PROVIDERS: Visit Provider Family Medicine
DX: R05.1 Acute cough (principal); J44.1 Chronic obstructive pulmonary disease with (acute) exacerbation
CPT/HCPCS: 71046